=== PATIENT | female | born 1955 | race Caucasian/White ===

== ENCOUNTER → 2017-08-30 12:13 | Outpatient (CLI) | payer OTHER, SELFPAY ==
[2017-08-30 13:51] LABS: Absolute Lymphocyte Count 2.07 X10^3/ul (0.83-4.51); Absolute Neutrophil Count 2.2 X10^3/uL (2.0-7.7); Basophil# 0.02 X10^3/uL; Basophil% 0.4 % (0-1); Eosinophil# 0.17 X10^3/uL; Eosinophils% 3.4 % (0-5); Hematocrit 42.6 % (37-47); Hemoglobin 13.9 g/dl (12.0-15.0); Lymphocyte # 2.07 X10^3/ul (4.0); Mean Corp Hgb Conc 32.6 g/gl (32-36); Mean Corpuscular Hgb 30.3 pg (27.0-32.0); Mean Platelet Vol. 9.6 fl (6.2-12.0); Monocyte# 0.43 X10^3/uL; Monocyte% 8.7 % (0-10); Neutrophil # 2.24 X10^3/uL (2.7-7.7); Neutrophil % 45.5 % (47-70); Platelet Count 289 K/mm3 (150-450); RBC Distribution Width CV 13.4 % (11.6-14.6); RBC Distribution Width SD 45.7 fl (35.1-43.9); Red Blood Count 4.58 M/mm3 (4.2-5.4); White Blood Count 4.9 K/mm3 (4.4-11.0)
[2017-08-30 13:55] LABS: POSITIVE COUNT NO; POSITIVE DIFFERENTIAL NO; POSITIVE MORPHOLOGY NO
[2017-08-30 14:21] LABS: ALB/GLOB Ratio 0.9 RATIO (0.9-2.4); AST(SGOT) 23 U/L (15-37); Alanine Aminotransfer ALT/SGPT 33 U/L (13-56); Albumin, Serum 3.5 g/dL (3.2-5.0); Alkaline Phosphatase 68 U/L (45-117); Anion Gap 8 (5-15); BUN 18 mg/dL (7-18); BUN/Creat Ratio 27.3 RATIO (10-20); Calcium,Total 8.6 mg/dL (8.5-10.1); Chloride 106 mmol/L (98-107); Creatinine, Serum 0.66 mg/dL (0.55-1.02); EST Glomerular Filtration Rate 96 mL/min (>60); Est Glom Filt Rate - Afr Amer 116 mL/min (>60); Globulin 3.8 g/dL (2.2-4.2); Glucose 77 mg/dL (74-106); Potassium 4.3 mmol/L (3.5-5.1); Protein, Total 7.3 g/dL (6.4-8.2); Sodium Level 141 mmol/L (136-145)
== END ==
PROVIDERS: Family Provider Internal Medicine; PCP Internal Medicine; Visit Provider Internal Medicine Rheumatology
DX: M06.4 Inflammatory polyarthropathy (principal); M79.7 Fibromyalgia; M25.562 Pain in left knee; M17.0 Bilateral primary osteoarthritis of knee; F32.89 Other specified depressive episodes
CPT/HCPCS: 36415; 80053; 85025

== ENCOUNTER → 2018-01-29 08:53 | Outpatient (CLI) | payer OTHER, SELFPAY ==
[2018-01-29 10:29] LABS: Absolute Lymphocyte Count 1.34 X10^3/ul (0.83-4.51); Absolute Neutrophil Count 1.7 X10^3/uL (2.0-7.7); Basophil# 0.07 X10^3/uL; Basophil% 1.9 % (0-1); Eosinophil# 0.13 X10^3/uL; Eosinophils% 3.5 % (0-5); Hematocrit 42.8 % (37-47); Hemoglobin 14.2 g/dl (12.0-15.0); Lymphocyte # 1.34 X10^3/ul (4.0); Lymphocyte % 36.1 % (19-41); Mean Corp Hgb Conc 33.2 g/gl (32-36); Mean Corpuscular Hgb 30.8 pg (27.0-32.0); Mean Corpuscular Volume 92.8 fL (81-99); Mean Platelet Vol. 9.8 fl (6.2-12.0); Monocyte# 0.49 X10^3/uL; Monocyte% 13.2 % (0-10); Neutrophil # 1.67 X10^3/uL (2.7-7.7); Platelet Count 307 K/mm3 (150-450); RBC Distribution Width CV 13.1 % (11.6-14.6); RBC Distribution Width SD 43.4 fl (35.1-43.9); Red Blood Count 4.61 M/mm3 (4.2-5.4); White Blood Count 3.7 K/mm3 (4.4-11.0)
[2018-01-29 10:39] LABS: POSITIVE COUNT NO; POSITIVE DIFFERENTIAL NO; POSITIVE MORPHOLOGY NO
[2018-01-29 10:55] LABS: ALB/GLOB Ratio 0.8 RATIO (0.9-2.4); AST(SGOT) 24 U/L (15-37); Alanine Aminotransfer ALT/SGPT 35 U/L (13-56); Albumin, Serum 3.4 g/dL (3.2-5.0); Alkaline Phosphatase 68 U/L (45-117); Anion Gap 8 (5-15); BUN 18 mg/dL (7-18); BUN/Creat Ratio 24.2 RATIO (10-20); Chloride 107 mmol/L (98-107); Creatinine, Serum 0.74 mg/dL (0.55-1.02); EST Glomerular Filtration Rate 84 mL/min (>60); Est Glom Filt Rate - Afr Amer 101 mL/min (>60); Glucose 111 mg/dL (74-106); Potassium 4.1 mmol/L (3.5-5.1); Protein, Total 7.4 g/dL (6.4-8.2); Sodium Level 142 mmol/L (136-145)
== END ==
PROVIDERS: Family Provider Internal Medicine; PCP Internal Medicine; Referring Provider Internal Medicine Rheumatology; Visit Provider Internal Medicine Rheumatology
DX: M06.4 Inflammatory polyarthropathy (principal); M17.0 Bilateral primary osteoarthritis of knee; M79.7 Fibromyalgia; F32.89 Other specified depressive episodes
CPT/HCPCS: 36415; 80053; 85025

== ENCOUNTER → 2018-06-25 12:57 | Outpatient (CLI) | payer OTHER, SELFPAY ==
[2018-06-25 14:12] LABS: Absolute Lymphocyte Count 1.61 X10^3/ul (0.83-4.51); Absolute Neutrophil Count 2.6 X10^3/uL (2.0-7.7); Basophil# 0.03 X10^3/uL; Basophil% 0.6 % (0-1); Eosinophil# 0.15 X10^3/uL; Eosinophils% 3.2 % (0-5); Hematocrit 44.3 % (37-47); Hemoglobin 14.4 g/dl (12.0-15.0); Lymphocyte # 1.61 X10^3/ul (4.0); Lymphocyte % 34.1 % (19-41); Mean Corp Hgb Conc 32.5 g/gl (32-36); Mean Corpuscular Hgb 30.1 pg (27.0-32.0); Mean Corpuscular Volume 92.5 fL (81-99); Mean Platelet Vol. 9.7 fl (6.2-12.0); Monocyte# 0.36 X10^3/uL; Monocyte% 7.6 % (0-10); Neutrophil # 2.56 X10^3/uL (2.7-7.7); Neutrophil % 54.3 % (47-70); Platelet Count 264 K/mm3 (150-450); RBC Distribution Width CV 13.3 % (11.6-14.6); RBC Distribution Width SD 44.5 fl (35.1-43.9); Red Blood Count 4.79 M/mm3 (4.2-5.4); White Blood Count 4.7 K/mm3 (4.4-11.0)
[2018-06-25 14:16] LABS: POSITIVE COUNT NO; POSITIVE DIFFERENTIAL NO; POSITIVE MORPHOLOGY NO
[2018-06-25 14:25] LABS: ALB/GLOB Ratio 1.1 RATIO (0.9-2.4); AST(SGOT) 20 U/L (15-37); Alanine Aminotransfer ALT/SGPT 30 U/L (13-56); Albumin, Serum 3.8 g/dL (3.2-5.0); Alkaline Phosphatase 84 U/L (45-117); Anion Gap 9 (5-15); BUN 15 mg/dL (7-18); BUN/Creat Ratio 23.2 RATIO (10-20); Calcium,Total 8.6 mg/dL (8.5-10.1); Chloride 109 mmol/L (98-107); Creatinine, Serum 0.65 mg/dL (0.55-1.02); EST Glomerular Filtration Rate 98 mL/min (>60); Est Glom Filt Rate - Afr Amer 119 mL/min (>60); Globulin 3.5 g/dL (2.2-4.2); Glucose 102 mg/dL (74-106); Potassium 3.8 mmol/L (3.5-5.1); Protein, Total 7.3 g/dL (6.4-8.2); Sodium Level 142 mmol/L (136-145)
== END ==
PROVIDERS: Family Provider Internal Medicine; PCP Internal Medicine; Referring Provider Internal Medicine Rheumatology; Visit Provider Internal Medicine Rheumatology
DX: M06.4 Inflammatory polyarthropathy (principal); M17.0 Bilateral primary osteoarthritis of knee; M79.7 Fibromyalgia; F32.89 Other specified depressive episodes
CPT/HCPCS: 36415; 80053; 85025

== ENCOUNTER → 2018-10-27 14:32 | Outpatient (CLI) | payer OTHER, SELFPAY ==
[2018-10-27 15:42] LABS: Absolute Lymphocyte Count 2.14 X10^3/ul (0.83-4.51); Absolute Neutrophil Count 2.9 X10^3/uL (2.0-7.7); Basophil# 0.03 X10^3/uL; Basophil% 0.5 % (0-1); Eosinophil# 0.17 X10^3/uL; Hematocrit 43.6 % (37-47); Hemoglobin 14.2 g/dl (12.0-15.0); Lymphocyte # 2.14 X10^3/ul (4.0); Lymphocyte % 37.5 % (19-41); Mean Corp Hgb Conc 32.6 g/gl (32-36); Mean Corpuscular Hgb 30.3 pg (27.0-32.0); Monocyte# 0.51 X10^3/uL; Monocyte% 8.9 % (0-10); Neutrophil # 2.85 X10^3/uL (2.7-7.7); Neutrophil % 49.9 % (47-70); Platelet Count 283 K/mm3 (150-450); RBC Distribution Width CV 13.3 % (11.6-14.6); RBC Distribution Width SD 44.4 fl (35.1-43.9); Red Blood Count 4.69 M/mm3 (4.2-5.4); White Blood Count 5.7 K/mm3 (4.4-11.0)
[2018-10-27 15:44] LABS: POSITIVE COUNT NO; POSITIVE DIFFERENTIAL NO; POSITIVE MORPHOLOGY NO
[2018-10-27 16:01] LABS: AST(SGOT) 24 U/L (15-37); Alanine Aminotransfer ALT/SGPT 33 U/L (13-56); Albumin, Serum 3.6 g/dL (3.2-5.0); Alkaline Phosphatase 78 U/L (45-117); Anion Gap 3 (5-15); BUN 17 mg/dL (7-18); BUN/Creat Ratio 24.6 RATIO (10-20); Chloride 108 mmol/L (98-107); Creatinine, Serum 0.69 mg/dL (0.55-1.02); EST Glomerular Filtration Rate 91 mL/min (>60); Est Glom Filt Rate - Afr Amer 110 mL/min (>60); Globulin 3.6 g/dL (2.2-4.2); Glucose 85 mg/dL (74-106); Potassium 3.8 mmol/L (3.5-5.1); Protein, Total 7.2 g/dL (6.4-8.2); Sodium Level 141 mmol/L (136-145)
== END ==
PROVIDERS: Family Provider Internal Medicine; PCP Internal Medicine; Referring Provider Internal Medicine Rheumatology; Visit Provider Internal Medicine Rheumatology
DX: M06.4 Inflammatory polyarthropathy (principal); M79.7 Fibromyalgia; M17.0 Bilateral primary osteoarthritis of knee; F32.89 Other specified depressive episodes
CPT/HCPCS: 36415; 80053; 85025

== ENCOUNTER → 2019-02-03 16:01 | Outpatient (CLI) | payer MEDICARE, OTHER, SELFPAY ==
[2019-02-03 17:27] LABS: Absolute Lymphocyte Count 1.56 X10^3/uL (0.83-4.51); Absolute Neutrophil Count 2.8 X10^3/uL (2.0-7.7); Basophil# 0.04 X10^3/uL; Basophil% 0.8 % (0-1); Hematocrit 42.5 % (37-47); Hemoglobin 13.8 g/dL (12.0-15.0); Lymphocyte # 1.56 X10^3/ul (4.0); Lymphocyte % 30.9 % (19-41); Mean Corp Hgb Conc 32.5 g/dL (32-36); Mean Corpuscular Hgb 30.3 pg (27.0-32.0); Mean Corpuscular Volume 93.2 fL (81-99); Mean Platelet Vol. 9.4 fl (6.2-12.0); Monocyte# 0.44 X10^3/uL; Monocyte% 8.7 % (0-10); NRBC Flagged by Analyzer 0 % (0-5); Neutrophil % 55.4 % (47-70); Platelet Count 261 K/mm3 (150-450); RBC Distribution Width CV 12.5 % (11.6-14.6); RBC Distribution Width SD 43.1 fl (35.1-43.9); Red Blood Count 4.56 M/mm3 (4.2-5.4); White Blood Count 5.1 K/mm3 (4.4-11.0)
[2019-02-03 17:40] LABS: AST(SGOT) 19 U/L (15-37); Alanine Aminotransfer ALT/SGPT 32 U/L (13-56); Albumin, Serum 3.4 g/dL (3.2-5.0); Alkaline Phosphatase 75 U/L (45-117); Anion Gap 6 (5-15); BUN 17 mg/dL (7-18); BUN/Creat Ratio 24.9 RATIO (10-20); Calcium,Total 8.6 mg/dL (8.5-10.1); Chloride 108 mmol/L (98-107); Creatinine, Serum 0.68 mg/dL (0.55-1.02); EST Glomerular Filtration Rate 92 mL/min (>60); Est Glom Filt Rate - Afr Amer 111 mL/min (>60); Globulin 3.4 g/dL (2.2-4.2); Glucose 87 mg/dL (74-106); Protein, Total 6.8 g/dL (6.4-8.2); Sodium Level 142 mmol/L (136-145)
== END ==
PROVIDERS: Family Provider Internal Medicine; PCP Internal Medicine; Referring Provider Internal Medicine Rheumatology; Visit Provider Internal Medicine Rheumatology
DX: M06.4 Inflammatory polyarthropathy (principal); M17.0 Bilateral primary osteoarthritis of knee; F32.89 Other specified depressive episodes; M79.7 Fibromyalgia
CPT/HCPCS: 36415; 80053; 85025

== ENCOUNTER → 2019-03-06 20:13 | Outpatient (CLI) | payer MEDICARE, OTHER, SELFPAY | PROVIDERS: Family Provider Internal Medicine; PCP Internal Medicine; Referring Provider Psychiatry & Neurology Psychiatry; Visit Provider Psychiatry & Neurology Psychiatry | DX: G47.33 Obstructive sleep apnea (adult) (pediatric) (principal) | CPT/HCPCS: 95811 ==

== ENCOUNTER → 2019-04-28 16:39 | Outpatient (CLI) | payer MEDICARE, OTHER, SELFPAY ==
[2019-04-28 17:39] LABS: Absolute Lymphocyte Count 1.62 X10^3/uL (0.83-4.51); Absolute Neutrophil Count 3.7 X10^3/uL (2.0-7.7); Basophil# 0.04 X10^3/uL; Basophil% 0.7 % (0-1); Eosinophils% 3.3 % (0-5); Hematocrit 42.5 % (37-47); Hemoglobin 13.7 g/dL (12.0-15.0); Lymphocyte # 1.62 X10^3/ul (4.0); Lymphocyte % 26.8 % (19-41); Mean Corp Hgb Conc 32.2 g/dL (32-36); Mean Corpuscular Hgb 29.8 pg (27.0-32.0); Mean Corpuscular Volume 92.6 fL (81-99); Mean Platelet Vol. 9.4 fl (6.2-12.0); Monocyte# 0.44 X10^3/uL; Monocyte% 7.3 % (0-10); NRBC Flagged by Analyzer 0 % (0-5); Neutrophil # 3.72 X10^3/uL (2.7-7.7); Neutrophil % 61.6 % (47-70); Platelet Count 278 K/mm3 (150-450); RBC Distribution Width CV 13.2 % (11.6-14.6); RBC Distribution Width SD 44.4 fl (35.1-43.9); Red Blood Count 4.59 M/mm3 (4.2-5.4)
[2019-04-28 17:48] LABS: AST(SGOT) 24 U/L (15-37); Alanine Aminotransfer ALT/SGPT 37 U/L (13-56); Albumin, Serum 3.5 g/dL (3.2-5.0); Alkaline Phosphatase 82 U/L (45-117); Anion Gap 3 (5-15); BUN 14 mg/dL (7-18); BUN/Creat Ratio 17.7 RATIO (10-20); Calcium,Total 8.7 mg/dL (8.5-10.1); Chloride 106 mmol/L (98-107); Creatinine, Serum 0.79 mg/dL (0.55-1.02); EST Glomerular Filtration Rate 77 mL/min (>60); Est Glom Filt Rate - Afr Amer 94 mL/min (>60); Globulin 3.5 g/dL (2.2-4.2); Glucose 88 mg/dL (74-106); Potassium 3.9 mmol/L (3.5-5.1); Sodium Level 139 mmol/L (136-145)
== END ==
PROVIDERS: Family Provider Internal Medicine; PCP Internal Medicine; Referring Provider Internal Medicine Rheumatology; Visit Provider Internal Medicine Rheumatology
DX: M06.4 Inflammatory polyarthropathy (principal); M79.7 Fibromyalgia; M17.0 Bilateral primary osteoarthritis of knee; F32.89 Other specified depressive episodes
CPT/HCPCS: 36415; 80053; 85025

== ENCOUNTER → 2019-08-12 15:08 | Outpatient (CLI) | payer MEDICARE, OTHER, SELFPAY ==
[2019-08-12 17:44] LABS: Absolute Lymphocyte Count 1.93 X10^3/uL (0.83-4.51); Absolute Neutrophil Count 2.9 X10^3/uL (2.0-7.7); Basophil# 0.04 X10^3/uL; Basophil% 0.7 % (0-1); Eosinophil# 0.23 X10^3/uL; Eosinophils% 4.1 % (0-5); Hematocrit 43.8 % (37-47); Lymphocyte # 1.93 X10^3/ul (4.0); Lymphocyte % 34.8 % (19-41); Mean Corpuscular Hgb 30.6 pg (27.0-32.0); Mean Corpuscular Volume 95.6 fL (81-99); Mean Platelet Vol. 9.9 fl (6.2-12.0); Monocyte# 0.46 X10^3/uL; Monocyte% 8.3 % (0-10); NRBC Flagged by Analyzer 0 % (0-5); Neutrophil # 2.88 X10^3/uL (2.7-7.7); Neutrophil % 51.9 % (47-70); Platelet Count 265 K/mm3 (150-450); RBC Distribution Width CV 13.2 % (11.6-14.6); RBC Distribution Width SD 46.4 fl (35.1-43.9); Red Blood Count 4.58 M/mm3 (4.2-5.4); White Blood Count 5.6 K/mm3 (4.4-11.0)
[2019-08-12 18:06] LABS: AST(SGOT) 22 U/L (15-37); Alanine Aminotransfer ALT/SGPT 34 U/L (13-56); Albumin, Serum 3.6 g/dL (3.2-5.0); Alkaline Phosphatase 81 U/L (45-117); Anion Gap 6 (5-15); BUN 17 mg/dL (7-18); Chloride 106 mmol/L (98-107); Creatinine, Serum 0.81 mg/dL (0.55-1.02); EST Glomerular Filtration Rate 76 mL/min (>60); Est Glom Filt Rate - Afr Amer 91 mL/min (>60); Globulin 3.5 g/dL (2.2-4.2); Glucose 82 mg/dL (74-106); Potassium 3.7 mmol/L (3.5-5.1); Protein, Total 7.1 g/dL (6.4-8.2); Sodium Level 139 mmol/L (136-145)
== END ==
PROVIDERS: PCP Internal Medicine; Referring Provider Internal Medicine Rheumatology; Visit Provider Internal Medicine Rheumatology
DX: M06.4 Inflammatory polyarthropathy (principal); M79.7 Fibromyalgia; M17.0 Bilateral primary osteoarthritis of knee; F32.89 Other specified depressive episodes
CPT/HCPCS: 36415; 80053; 85025

== ENCOUNTER → 2019-11-18 13:48 | Outpatient (CLI) | payer MEDICARE, OTHER, SELFPAY | PROVIDERS: PCP Internal Medicine; Referring Provider Clinical Nurse Specialist; Visit Provider Clinical Nurse Specialist | DX: R00.2 Palpitations (principal) | CPT/HCPCS: 93225; 93226 ==

== ENCOUNTER → 2019-12-10 11:52 | Outpatient (CLI) | payer MEDICARE, OTHER, SELFPAY ==
[2019-12-10 15:29] LABS: Absolute Lymphocyte Count 1.61 X10^3/uL (0.83-4.51); Absolute Neutrophil Count 2.4 X10^3/uL (2.0-7.7); Basophil# 0.03 X10^3/uL; Basophil% 0.7 % (0-1); Eosinophil# 0.17 X10^3/uL; Eosinophils% 3.7 % (0-5); Hematocrit 43.2 % (37-47); Hemoglobin 13.8 g/dL (12.0-15.0); Lymphocyte # 1.61 X10^3/ul (4.0); Lymphocyte % 35.2 % (19-41); Mean Corp Hgb Conc 31.9 g/dL (32-36); Mean Corpuscular Hgb 30.7 pg (27.0-32.0); Mean Corpuscular Volume 96.2 fL (81-99); Mean Platelet Vol. 10.2 fl (6.2-12.0); Monocyte# 0.31 X10^3/uL; Monocyte% 6.8 % (0-10); NRBC Flagged by Analyzer 0 % (0-5); Neutrophil # 2.44 X10^3/uL (2.7-7.7); Neutrophil % 53.4 % (47-70); Platelet Count 291 K/mm3 (150-450); RBC Distribution Width CV 12.8 % (11.6-14.6); RBC Distribution Width SD 44.7 fl (35.1-43.9); Red Blood Count 4.49 M/mm3 (4.2-5.4); White Blood Count 4.6 K/mm3 (4.4-11.0)
[2019-12-10 15:37] LABS: AST(SGOT) 21 U/L (15-37); Alanine Aminotransfer ALT/SGPT 36 U/L (13-56); Albumin, Serum 3.6 g/dL (3.2-5.0); Alkaline Phosphatase 75 U/L (45-117); Anion Gap 6 (5-15); BUN 15 mg/dL (7-18); Chloride 108 mmol/L (98-107); Creatinine, Serum 0.68 mg/dL (0.55-1.02); EST Glomerular Filtration Rate 92 mL/min (>60); Est Glom Filt Rate - Afr Amer 111 mL/min (>60); Globulin 3.5 g/dL (2.2-4.2); Glucose 89 mg/dL (74-106); Protein, Total 7.1 g/dL (6.4-8.2); Sodium Level 141 mmol/L (136-145)
== END ==
PROVIDERS: PCP Internal Medicine; Referring Provider Internal Medicine Rheumatology; Visit Provider Internal Medicine Rheumatology
DX: M06.4 Inflammatory polyarthropathy (principal); M79.7 Fibromyalgia; M17.0 Bilateral primary osteoarthritis of knee; F32.89 Other specified depressive episodes
CPT/HCPCS: 36415; 80053; 85025

== ENCOUNTER → 2020-03-01 08:02 | Outpatient (CLI) | payer MEDICARE, OTHER, SELFPAY ==
[2020-03-01 09:50] LABS: Absolute Lymphocyte Count 1.12 X10^3/uL (0.83-4.51); Absolute Neutrophil Count 2.7 X10^3/uL (2.0-7.7); Basophil# 0.04 X10^3/uL; Basophil% 0.9 % (0-1); Eosinophil# 0.18 X10^3/uL; Eosinophils% 4.1 % (0-5); Hematocrit 42.9 % (37-47); Lymphocyte # 1.12 X10^3/ul (4.0); Lymphocyte % 25.4 % (19-41); Mean Corp Hgb Conc 32.6 g/dL (32-36); Mean Corpuscular Volume 95.1 fL (81-99); Mean Platelet Vol. 9.8 fl (6.2-12.0); Monocyte# 0.34 X10^3/uL; Monocyte% 7.7 % (0-10); NRBC Flagged by Analyzer 0 % (0-5); Neutrophil # 2.72 X10^3/uL (2.7-7.7); Neutrophil % 61.7 % (47-70); Platelet Count 283 K/mm3 (150-450); RBC Distribution Width CV 13.1 % (11.6-14.6); RBC Distribution Width SD 46.1 fl (35.1-43.9); Red Blood Count 4.51 M/mm3 (4.2-5.4); White Blood Count 4.4 K/mm3 (4.4-11.0)
[2020-03-01 10:16] LABS: Cholesterol 177 mg/dL (200); High Density Lipoprotein 86 mg/dL; Thyroid Stim Hormone (TSH) 1.15 uIU/mL (0.358-3.74); Triglycerides 55 mg/dL; Very Low Density Lipoprotein 11 mg/dL (5-40)
[2020-03-01 10:16] LABS: ALB/GLOB Ratio 0.9 RATIO (0.9-2.4); AST(SGOT) 20 U/L (15-37); Alanine Aminotransfer ALT/SGPT 36 U/L (13-56); Albumin, Serum 3.4 g/dL (3.2-5.0); Alkaline Phosphatase 74 U/L (45-117); Anion Gap 4 (5-15); BUN 16 mg/dL (7-18); BUN/Creat Ratio 21.6 RATIO (10-20); Chloride 108 mmol/L (98-107); Creatinine, Serum 0.74 mg/dL (0.55-1.02); EST Glomerular Filtration Rate 83 mL/min (>60); Est Glom Filt Rate - Afr Amer 101 mL/min (>60); Globulin 3.8 g/dL (2.2-4.2); Glucose 108 mg/dL (74-106); Protein, Total 7.2 g/dL (6.4-8.2); Sodium Level 139 mmol/L (136-145)
== END ==
PROVIDERS: Internal Medicine Rheumatology; PCP Internal Medicine; Referring Provider Internal Medicine; Visit Provider Internal Medicine
DX: M06.4 Inflammatory polyarthropathy (principal); M79.7 Fibromyalgia; M17.0 Bilateral primary osteoarthritis of knee; F32.89 Other specified depressive episodes; E03.9 Hypothyroidism, unspecified; E78.5 Hyperlipidemia, unspecified
CPT/HCPCS: 36415; 80053; 80061; 84439; 84443; 84481; 85025

== ENCOUNTER → 2020-05-17 16:03 | Outpatient (CLI) | payer MEDICARE, OTHER, SELFPAY ==
[2020-05-17 17:54] LABS: Absolute Lymphocyte Count 1.75 X10^3/uL (0.83-4.51); Absolute Neutrophil Count 2.6 X10^3/uL (2.0-7.7); Basophil# 0.02 X10^3/uL; Basophil% 0.4 % (0-1); Eosinophil# 0.24 X10^3/uL; Eosinophils% 4.7 % (0-5); Hemoglobin 14.1 g/dL (12.0-15.0); Lymphocyte # 1.75 X10^3/ul (4.0); Lymphocyte % 34.3 % (19-41); Mean Corp Hgb Conc 32.8 g/dL (32-36); Mean Corpuscular Hgb 31.1 pg (27.0-32.0); Mean Corpuscular Volume 94.7 fL (81-99); Monocyte# 0.47 X10^3/uL; Monocyte% 9.2 % (0-10); NRBC Flagged by Analyzer 0 % (0-5); Neutrophil # 2.56 X10^3/uL (2.7-7.7); Neutrophil % 50.2 % (47-70); Platelet Count 285 K/mm3 (150-450); RBC Distribution Width CV 12.6 % (11.6-14.6); RBC Distribution Width SD 43.8 fl (35.1-43.9); Red Blood Count 4.54 M/mm3 (4.2-5.4); White Blood Count 5.1 K/mm3 (4.4-11.0)
[2020-05-17 18:01] LABS: ALB/GLOB Ratio 1.1 RATIO (0.9-2.4); AST(SGOT) 22 U/L (15-37); Alanine Aminotransfer ALT/SGPT 37 U/L (13-56); Albumin, Serum 3.6 g/dL (3.2-5.0); Alkaline Phosphatase 73 U/L (45-117); Anion Gap 6 (5-15); BUN 17 mg/dL (7-18); BUN/Creat Ratio 19.1 RATIO (10-20); Calcium,Total 9.2 mg/dL (8.5-10.1); Chloride 107 mmol/L (98-107); Creatinine, Serum 0.89 mg/dL (0.55-1.02); EST Glomerular Filtration Rate 68 mL/min (>60); Est Glom Filt Rate - Afr Amer 82 mL/min (>60); Globulin 3.4 g/dL (2.2-4.2); Glucose 87 mg/dL (74-106); Potassium 4.3 mmol/L (3.5-5.1); Sodium Level 141 mmol/L (136-145)
== END ==
PROVIDERS: PCP Internal Medicine; Referring Provider Internal Medicine Rheumatology; Visit Provider Internal Medicine Rheumatology
DX: M06.4 Inflammatory polyarthropathy (principal); M79.7 Fibromyalgia; M17.0 Bilateral primary osteoarthritis of knee; F32.89 Other specified depressive episodes
CPT/HCPCS: 36415; 80053; 85025

== ENCOUNTER → 2021-04-12 | Outpatient (CLI) | payer MEDICARE, OTHER, SELFPAY | END | disposition home or self-care (01) | PROVIDERS: PCP Internal Medicine; Referring Provider Physician Assistant; Visit Provider Physician Assistant | DX: Z11.52 Encounter for screening for COVID-19 (principal) | CPT/HCPCS: 87635; U0005; U0003 ==

== ENCOUNTER 2021-05-16 10:36 | Outpatient (CLI) | payer MEDICARE, OTHER, SELFPAY | END 2021-05-16 23:59 | disposition short-term general hospital (02) | LOC: LABSPEC 10:38 | PROVIDERS: PCP Internal Medicine; Visit Provider Physician Assistant Surgical | DX: Z11.52 Encounter for screening for COVID-19 (principal) | CPT/HCPCS: 87635; U0003; U0005 ==

== ENCOUNTER 2022-05-14 16:47 | Emergency (ER) | payer MEDICARE, OTHER, SELFPAY ==
[2022-05-14 16:48] VITALS: BP 185/85; PULSE 92; RESP 19; TEMP 36.6; O2SAT 97; BMI 43.1
--- NOTE | 2022-05-14 17:11 | CT_ITS ---
INDICATION: Headache, encephalopathy EXAMINATION: CT BRAIN - CT Head or Brain W/O Contrast Injection TECHNIQUE: Multiple axial images were obtained of the head without intravenous contrast. A radiation dose optimization technique was used for this scan. IV Contrast dosage and agent: None. COMPARISON: None FINDINGS: BRAIN PARENCHYMA: No intra- or extra-axial hemorrhage. No evidence of acute infarct. No intracranial mass or mass effect. Volume loss with low attenuation of the periventricular white matter typical of chronic small vessel disease. Posterior fossa structures are unremarkable. CSF SPACES: Appropriate for age. No hydrocephalus. Basal cisterns are patent. CALVARIUM, SKULL BASE, PARANASAL SINUSES AND MASTOID AIR CELLS: Clear. No discrete lytic or blastic abnormalities. ORBITS: Both globes, extraocular muscles, optic nerves and retrobulbar fat appear unremarkable. CT/Brain/Head without Contrast IMPRESSION: No acute intracranial findings. Electronically Signed: Murali Ramso MD at 17:51 EST ,
--- NOTE | 2022-05-14 17:11 | EKG12_ITS ---
Test Reason : Blood Pressure : / mmHG Vent. Rate : 078 BPM Atrial Rate : 078 BPM P-R Int : 178 ms QRS Dur : 088 ms QT Int : 384 ms P-R-T Axes : 060 065 028 degrees QTc Int : 437 ms Normal sinus rhythm Normal ECG Confirmed by FRANCESCA ARCHIBALD, BALJINDER ([id number]), design editor IMAN MORGAN ([id number]) on 05/16/2022 9:01:30 AM Referred By: CED Confirmed By:BALJINDER MA MD
--- NOTE | 2022-05-14 17:12 | ED.VIS.CHEST ---
HPI History of Present Illness Chief Complaint: Chest Pain Narrative Narrative: C7-year-old female past medical history of hypothyroidism and depression presents with chest pain that she has had for the last 5 hours. 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 She describes midsternal chest pressure and heaviness without radiation. No nausea or vomiting, no diaphoresis. She states she has been dealing with heart palpitations with rapid heart rate and her heart skipping a beat along with elevated blood pressure since November of last year, over the last 6 months. She has been keeping track of her blood pressure because she has an appointment with Dr. Francisco Javier Gaming coming up. She was told that if she has chest pressure again as she has had in the past, that she needs to come to the emergency department for evaluation. Prior to arrival her blood pressure was in the 160 systolic. She also states that she has a headache today, but denies any paresthesias, or any other symptoms. No DVT or PE risk factors. [facility] Medical History Arthritis Breast nodule Dysthymic disorder Essential hypertension Fibromyalgia Hypothyroidism Obesity MERLIN (obstructive sleep apnea) Thyroid nodule Home Medications bupropion HCl 150 mg 24 hr tablet, extended release 150 mg PO DAILY 12/14/14 [History Last Taken Unknown] coenzyme Q10 50 mg chewable tablet 50 mg PO DAILY 12/14/14 [History Last Taken Unknown] colostrum, bovine 500 mg capsule 1,000 mg PO BID 12/14/14 [History Last Taken Unknown] cyanocobalamin (vitamin B-12) 500 mcg sublingual tablet 500 mcg sublingual DAILY 12/14/14 [History Last Taken Unknown] fish oil-dha-epa 1,200 mg-144 mg-216 mg capsule 1 ea PO BID 12/14/14 [History Last Taken Unknown] multivitamin with folic acid 400 mcg tablet (Thera) 1 tab PO DAILY 12/14/14 [History Last Taken Unknown] trazodone 50 mg tablet 50 mg PO QHS 12/14/14 [History Last Taken Unknown] levothyroxine 25 mcg tablet 25 mcg PO DAILY 07/21/15 [History Last Taken 08/17/15 07:00] Ca 600 mg-D3 20 mcg-mag oxide 50 wx-Ek-offfqg-manganese-boron tablet (Calcium 600-D3 Plus (mag-zinc)) 1 tab PO DAILY 05/14/22 [History Last Taken Unknown] amlodipine 10 mg tablet 10 mg PO DAILY #30 tabs 05/14/22 [Rx Last Taken Unknown] biotin 2,500 mcg capsule 2,500 mcg PO DAILY 05/14/22 [History Last Taken Unknown] cholecalciferol (vitamin D3) 25 mcg (1,000 unit) tablet (Vitamin D3) 2,000 unit PO DAILY 05/14/22 [History Last Taken Unknown] colestipol 1 gram tablet 2 g PO DAILY 05/14/22 [History Last Taken Unknown] fluoxetine 40 mg capsule 40 mg PO DAILY 05/14/22 [History Last Taken Unknown] gabapentin 400 mg capsule 800 mg PO QHS 05/14/22 [History Last Taken Unknown] turmeric 900 mg-turmeric root extract 100 mg-black pepper 5 mg capsule 1 cap PO DAILY 05/14/22 [History Last Taken Unknown] Allergy/AdvReac Type Severity Reaction Status Date / Time No Known Allergies Allergy Verified 05/14/22 16:48 Surgical History History of herniorrhaphy History of laparoscopic cholecystectomy Social History Smoking Status: Never smoker alcohol intake: current alcohol intake frequency: 0-2 drinks per day Alcohol type: wine substance use type: does not use ROS ROS ED ROS Narrative Constitutional: No fever, no chills. HEENT: No sore throat. No neck pain. No loss of vision. No rhinorrhea. Cardiovascular: Positive midsternal chest pressure and heaviness/chest pain. Intermittent palpitations. No pedal edema. Respiratory: No cough, intermittent, chronic shortness of breath for months. Abdominal: No abdominal pain. No nausea. No vomiting. Genitourinary: No dysuria. No hematuria. Musculoskeletal: No myalgias. No arthralgias. Neurologic: Positive headaches. No dizziness. No lightheadedness. Skin: No rash. No change in color. Psychiatric: No depression. No anxiety. EXAM Physical Exam Narrative Exam Narrative: Afebrile. Vital signs noted. HEENT: Normocephalic. Atraumatic. PERRL, EOMI. Neck soft and supple. No point tenderness or step off. Cardiovascular: Regular rate and rhythm. No murmurs, rubs, or gallops appreciated. Respiratory: No tachypnea. Lungs clear to auscultation bilaterally. Gastrointestinal: Abdomen soft, nontender, with normoactive bowel sounds. No rebound or guarding. Neurological: Awake. Alert. Nonfocal, nonlateralizing. Skin: No rash. Normal color. No pallor. Musculoskeletal: No pedal edema. Full range of motion extremities. Const Vital Signs: 05/14/22 16:48 05/14/22 16:52 05/14/22 17:27 Temperature 97.9 F Temperature Source Oral Pulse Rate 92 Respiratory Rate 19 H Respiratory Effort Normal Respiratory Pattern Normal Blood Pressure 185/85 H Blood Pressure Mean 118 Pulse Ox 97 99 Oxygen Delivery Method Room Air Room Air 05/14/22 17:47 05/14/22 20:00 Temperature Temperature Source Pulse Rate 71 72 Respiratory Rate 15 15 Respiratory Effort Respiratory Pattern Blood Pressure 154/87 H 161/88 H Blood Pressure Mean 109 112 Pulse Ox 99 98 Oxygen Delivery Method Room Air Room Air Heart Score History: Slightly/Non-Suspicious ECG: Normal Age: >/= 65 years Risk Factors: 1 or 2 Risk Factors Score: 3 MDM MDM MDM Narrative Medical decision making narrative: Chest pain work-up was pursued. She was administered aspirin. EKG was obtained and interpreted by myself as normal sinus rhythm at 78 bpm without ectopy or acute ST changes. No STEMI. I reviewed her laboratory work, and she has a normal white count of 7.6, hemoglobin normal at 14.9, platelet count normal at 328. BMP was obtained and she has a glucose appropriately elevated at 90 with a normal anion gap of 8. Sodium and potassium are normal at 139 and 3.9 respectively. Initial high-sensitivity troponin is 7. 2-hour repeat is 9 for a delta less than 7. My interpretation of the CT of her brain shows no evidence of hemorrhage. I reviewed the radiology report and agree that there is no acute process. I interpreted her chest x-ray as no evidence of pneumonia or pneumothorax. I reviewed the radiology report and they report a haziness of unspecified chronicity, but there is no indication for antibiotics that she does not have a productive cough, fever, or elevated white count and no pneumonia symptoms. Her blood pressure has fluctuated from 185 systolic down to 161, and also in the 140s. She states she has an appointment with Dr. Gaming on Saturday for palpitations and hypertension. I discussed the patient with Dr. Gaming who is on-call with cardiology. He would like the patient started on amlodipine 10 mg orally daily. She was told to continue to keep a log of her blood pressures. I called her in a prescription for this and gave her first dose of amlodipine 10 mg here. Return instructions to the emergency department were reviewed. I feel she can be discharged safely home with follow-up. Return instructions were reviewed. Disposition is discharged home in stable condition. Lab Data Attestation: I reviewed the patient's lab results. Labs: Laboratory Results - last 24 hr 05/14/22 05/14/22 05/14/22 16:55 16:55 19:18 WBC 7.6 RBC 4.79 Hgb 14.9 Hct 45.1 MCV 94.2 MCH 31.1 MCHC 33.0 RDW Std Deviation 44.1 H RDW Coeff of Poly 12.6 Plt Count 328 MPV 9.7 Immature Gran % (Auto) 0.300 Neut % (Auto) 55.9 Lymph % (Auto) 34.5 Delta % (Auto) 6.2 Eos % (Auto) 2.6 Baso % (Auto) 0.5 Absolute Neuts (auto) 4.3 Absolute Lymphs (auto) 2.63 Nucleated RBC % 0 Sodium 139 Potassium 3.9 Chloride 107 Carbon Dioxide 24.0 Anion Gap 8 BUN 18 Creatinine 0.77 Estim Creat Clear Calc 48.45 Est GFR (MDRD) Af Amer 96 Est GFR (MDRD) Non-Af 79 BUN/Creatinine Ratio 23.4 H Glucose 90 Calcium 9.4 Troponin I High Sens 7 9 Radiography Diagnostic Testing: Clinical Impression(s) from Imaging Studies Brain CT 05/14/22 17:11 IMPRESSION: No acute intracranial findings. Electronically Signed: Murali Ramos MD at 17:51 EST , Chest X-Ray 05/14/22 17:32 IMPRESSION: Hazy bilateral airspace disease of uncertain chronicity. Findings suspicious for pneumonia. Recommend short-term follow-up to resolution. Electronically Signed: Murali Ramos MD at 17:58 EST Reading Location ID and State: [facility] / [place] Tel , Service support , Discharge Plan Triage Chief Complaint: Chest Pain ED Provider: Brody Shannon Dx/Rx/DC Orders Clinical Impression: Essential hypertension, Chest pressure, Palpitations Instructions: ED Chest Pain, Uncertain Cause, ED Hypertension New Begin Treatment, ED Palpitations Prescriptions: New amlodipine 10 mg tablet 10 mg PO DAILY Qty: 30 0RF No Action gabapentin 400 mg capsule 800 mg PO QHS Rx Instructions: Start on 05/30/22 colestipol 1 gram tablet 2 g PO DAILY Label Comments: TAKE 1 TO 2 TABLETS BY MOUTH EVERY DAY as directed. Ca-D3-mag ue-meoq-rxs-nicholas-bor [Calcium 600-D3 Plus (mag-zinc)] 600 mg calcium- 20 mcg-50 mg tablet 1 tab PO DAILY turmeric-turmeric ext-pepper 900-100-5 mg capsule 1 cap PO DAILY fluoxetine 40 mg capsule 40 mg PO DAILY biotin 2,500 mcg capsule 2,500 mcg PO DAILY trazodone 50 MG tablet 50 mg PO QHS Label Comments: SLEEP bupropion HCl 150 MG tablet extended release 24 hr 150 mg PO DAILY Label Comments: mood fish oil-dha-epa 1 EACH capsule 1 ea PO BID Label Comments: supplement multivitamin with folic acid [Thera] 1 TABLET tablet 1 tab PO DAILY Label Comments: supplement coenzyme Q10 50 MG tablet,chewable 50 mg PO DAILY Label Comments: supplement colostrum, bovine 500 MG capsule 1,000 mg PO BID Label Comments: supplement cyanocobalamin (vitamin B-12) 500 MCG tablet, sublingual 500 mcg sublingual DAILY Label Comments: supplement cholecalciferol (vitamin D3) [Vitamin D3] 25 mcg (1,000 unit) tablet 2,000 unit PO DAILY Label Comments: supplement levothyroxine 25 MCG tablet 25 mcg PO DAILY Label Comments: thyroid med Primary Care Provider: Kelley Wells Referrals: Francisco Javier Gaming MD [Med Staff - Active Staff] - 2 Days Kelley Wells MD [Primary Care Provider] - Activity Restrictions/Additional Instructions: Take the amlodipine for your blood pressure, and continue to keep a log of your blood pressures for Dr. Gaming. Return with increasing chest pressure, new or worsening symptoms. Follow-up with Dr. Gaming in 2 days as scheduled. Disposition Disposition: Home, Self Care
[2022-05-14 17:27] VITALS: O2SAT 99
--- NOTE | 2022-05-14 17:32 | RAD_ITS ---
INDICATION: chest pain EXAMINATION/TECHNIQUE: X-RAY - portable upright AP chest x-ray COMPARISON: 07/21/2015 FINDINGS: LINES/DEVICES: None. LUNGS: Hazy bilateral lower lobe airspace opacities without consolidation or pleural effusion. No vascular congestion. MEDIASTINUM AND CARDIOVASCULAR STRUCTURES: Cardiac silhouette not enlarged. Central airways and mediastinal contour are unremarkable. BONES AND SOFT TISSUES: Unremarkable. RAD/Chest 1 View (Portable) IMPRESSION: Hazy bilateral airspace disease of uncertain chronicity. Findings suspicious for pneumonia. Recommend short-term follow-up to resolution. Electronically Signed: Murali Ramos MD at 17:58 EST ,
[2022-05-14 17:35] LABS: Absolute Lymphocyte Count 2.63 X10^3/uL (0.83-4.51); Absolute Neutrophil Count 4.3 X10^3/uL (2.0-7.7); Basophil# 0.04 X10^3/uL; Basophil% 0.5 % (0-1); Eosinophils% 2.6 % (0-5); Hematocrit 45.1 % (37-47); Hemoglobin 14.9 g/dL (12.0-15.0); Lymphocyte # 2.63 X10^3/ul (0.83-4.51); Lymphocyte % 34.5 % (19-41); Mean Corpuscular Hgb 31.1 pg (27.0-32.0); Mean Corpuscular Volume 94.2 fL (81-99); Mean Platelet Vol. 9.7 fl (6.2-12.0); Monocyte# 0.47 X10^3/uL; Monocyte% 6.2 % (0-10); NRBC Flagged by Analyzer 0 % (0-5); Neutrophil # 4.27 X10^3/uL (2.7-7.7); Neutrophil % 55.9 % (47-70); Platelet Count 328 K/mm3 (150-450); RBC Distribution Width CV 12.6 % (11.6-14.6); RBC Distribution Width SD 44.1 fl (35.1-43.9); Red Blood Count 4.79 M/mm3 (4.2-5.4); White Blood Count 7.6 K/mm3 (4.4-11.0)
[2022-05-14 17:46] LABS: Anion Gap 8 (5-15); BUN 18 mg/dL (7-18); BUN/Creat Ratio 23.4 RATIO (10-20); Calcium,Total 9.4 mg/dL (8.5-10.1); Chloride 107 mmol/L (98-107); Creatinine, Serum 0.77 mg/dL (0.55-1.02); EST Glomerular Filtration Rate 79 mL/min (>60); Est Glom Filt Rate - Afr Amer 96 mL/min (>60); Estimated Creatinine Clearance 48.45 ml/min; Glucose 90 mg/dL (74-106); Potassium 3.9 mmol/L (3.5-5.1); Sodium Level 139 mmol/L (136-145); Troponin-I HS (w/2H Reflex) 7 pg/mL (3.0-54.0)
[2022-05-14 17:47] VITALS: BP 154/87; PULSE 71; RESP 15; O2SAT 99
[2022-05-14] MEDS: Aspirin 81 MG TAB.CHEW 324 MG PO (18:07)
[2022-05-14 19:25] LABS: Reflex Troponin-HS? (from REC) Y
[2022-05-14 19:56] LABS: Troponin-I HS 9 pg/mL (3.0-54.0)
[2022-05-14 20:00] VITALS: BP 161/88; PULSE 72; RESP 15; O2SAT 98
[2022-05-14 21:34] VITALS: BP 170/78; PULSE 84; RESP 18; O2SAT 96
[2022-05-14] MEDS: amLODIPine 10 MG Tablet PO (21:34)
== END 2022-05-14 21:39 | disposition home or self-care (01) ==
PROVIDERS: Emergency Provider Emergency Medicine; PCP Internal Medicine; Visit Provider Emergency Medicine
DX: R07.89 Other chest pain (principal); R00.2 Palpitations; I10 Essential (primary) hypertension; F32.A Depression, unspecified
CPT/HCPCS: 70450; 71045; 80048; 84484; 85025; 93005; 99285; A4216

== ENCOUNTER → 2022-06-01 | Outpatient (CLI) | payer MEDICARE, OTHER, SELFPAY ==
--- NOTE | 2022-06-01 17:09 | STRESSREP ---
Stress Test Report Pharmacologic myocardial perfusion stress test. 67-year-old lady with a history of chest pain Resting EKG demonstrates sinus rhythm with a rate of 80 bpm. Resting blood pressure is 130/72 mmHg. 0.4 mg of regadenoson was infused per usual protocol followed by rapid intravenous saline flush injection. Continuous EKG monitoring was performed. The maximum heart rate was 97 bpm which was 63% of max impacted heart rate the maximum workload was 1 metabolic equivalent. At rest there were no ST or T wave changes noted to suggest ischemia and at peak infusion nonspecific ST changes were noted which did not meet the criteria for ischemia. No clinical angina is noted. The final blood pressure was 132/70 mmHg. Myocardial perfusion protocol. 15 mCi of technetium 99m sestamibi was injected at rest. 0.4 mg of regadenoson was infused per usual protocol. At peak infusion 44.8 mCi of technetium 99m sestamibi was injected stress images were obtained stress and rest images were reconstructed and compared in the short axis vertical long and horizontal long axis. Gated images were also obtained. Perfusion SPECT analysis: Review of the stress images demonstrate normal uptake of tracer noted in all areas of the myocardium except for small portion of the mid anterior wall with mildly reduced perfusion. The resting images demonstrated normal uptake of tracer noted in all areas of the myocardium. A small amount of reversible ischemia in the anterior wall cannot be completely excluded Gated SPECT analysis: The gated ejection fraction is 70%. Conclusion: Abnormal pharmacologic myocardial perfusion stress test with mild mid anterior ischemia. Preserved ejection fraction.
== END | disposition home or self-care (01) ==
LOC: CVS 06:59
PROVIDERS: PCP Internal Medicine; Visit Provider Internal Medicine Cardiovascular Disease
DX: R07.89 Other chest pain (principal)
CPT/HCPCS: 78452; 93017; 93225; 93226; A9500; A4216; J2785

== ENCOUNTER 2022-06-11 07:27 | Day surgery (SDC) | payer MEDICARE, OTHER, SELFPAY ==
[2022-06-07 11:01] VITALS: BMI 42.5
--- NOTE | 2022-06-11 10:59 | CL.D_ITS ---
Patient Name: ANAHI RAMOS Study Date: 06/11/2022 Performing: Francisco Javier Gaming MD Ht: 65 inches 165.1 cm : 1955 Wt: 256 lbs 116.12 kg Age: 67 Gender: female BSA: 2.2 PROCEDURE(S) PERFORMED DC02-(30048)[facility] CLINICAL PROFILE AND INDICATIONS Indications: Suspected CAD Heart Failure: None Stress/Imaging Date: 06/01/22Stress Test with SPECT MPI: Positive Low Risk CAD Presentations: Symptom unlikely to be ischemic. 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 The risks and benefits of the procedure as well as a full description of our services here and current unavailability of surgical backup were fully explained to the patient and/or their significant other prior to the catheterization. The Timeout was completed, verifying the correct patient and procedure. The patient's procedural site was prepped and draped in the usual fashion. Local anesthetic was given subcutaneously to right radial region with Lidocaine 2%. Using a modified Seldinger technique, arterial access was obtained via the right radial artery, a 6Fr sheath was inserted. Left Coronary Artery selective angiography was performed in multiple views using a 5 Fr. 4.0 [place] catheter. Right Coronary Artery selective angiography was then performed in multiple views using a 5 Fr. 4.0 [place] catheter.The arterial sheath was pulled and a TR Band was applied for hemostasis - 10cc air CORONARY ANGIOGRAPHY DOMINANCE: Right Dominant LEFT HEART ASSESSMENT Left Ventricular Ejection Fraction: by Echo 55 % Normal LV wall motion Normal Left Ventricular systolic function LEFT MAIN: Angiographically normal LEFT ANTERIOR DESCENDING ARTERY: Mild disease noted in the midsegment with some myocardial bridging in the first diagonal vessel with 50% proximal stenosis. CIRCUMFLEX ARTERY: No significant disease noted RIGHT CORONARY ARTERY: No significant disease noted COMPLICATIONS No Complications PROCEDURE MEDICATIONS Fentanyl 50 mcg IV Versed 1 mg IV Versed 1 mg IV Oxygen: 2 L/min via nasal cannula SUMMARY OF HEMODYNAMIC DATA Time AIR REST ECG 07:57:39 AO 116/71 (92) SA 09:21:58 Signed By Francisco Javier Gaming MD On 06/11/2022 10:58:32 Francisco Javier Gaming MD
== END 2022-06-11 11:15 | disposition home or self-care (01) ==
LOC: CLSP 07:28
PROVIDERS: PCP Internal Medicine; Referring Provider Internal Medicine Cardiovascular Disease; Visit Provider Internal Medicine Cardiovascular Disease
DX: I25.10 Atherosclerotic heart disease of native coronary artery without angina pectoris (principal); I10 Essential (primary) hypertension; R00.2 Palpitations; E03.9 Hypothyroidism, unspecified; G47.33 Obstructive sleep apnea (adult) (pediatric); E66.9 Obesity, unspecified; Z79.890 Hormone replacement therapy; Z79.899 Other long term (current) drug therapy
CPT/HCPCS: 93454; 99152; J7040; Q9967; C1769; C1894

== ENCOUNTER 2022-06-16 19:05 | Emergency (ER) | payer MEDICARE, OTHER, SELFPAY ==
[2022-06-16 19:06] VITALS: BP 166/76; PULSE 99; RESP 18; TEMP 38.3; O2SAT 97; BMI 43.2
--- NOTE | 2022-06-16 19:18 | RAD_ITS ---
STUDY: X-RAY - RIGHT KNEE REASON FOR EXAM: Female, 67 years old. Knee pain. Patient complains of fever, chills and body aches. History of cardiac catheterization 5 days ago. TECHNIQUE: 4 view(s) of the knee. COMPARISON: None. FINDINGS: There is a total knee replacement. The prosthetic components are intact and articulate normally with each other. There is no evidence of loosening from the underlying bone. There is no evidence of osseous fracture or destructive osseous pathology. No joint effusion. The soft tissue structures are unremarkable. RAD/Knee 4 or More Views IMPRESSION: Right total knee arthroplasty without acute abnormality. Electronically Signed: Abebe Minor DO at 20:59 EST Reading Location ID and State: [id number] [place] Tel [phone], Service support ,
--- NOTE | 2022-06-16 19:18 | EKG12_ITS ---
Test Reason : GEN ILL Blood Pressure : / mmHG Vent. Rate : 108 BPM Atrial Rate : 108 BPM P-R Int : 182 ms QRS Dur : 088 ms QT Int : 314 ms P-R-T Axes : 068 060 081 degrees QTc Int : 420 ms Sinus tachycardia Nonspecific ST abnormality Abnormal ECG Confirmed by REBECCA ARCHIBALD, LOLLY ([id number]), editor department IMAN MORGAN ([id number]) on 06/19/2022 9:26:05 AM Referred By: Confirmed By:LOLLY FERNANDEZ MD
--- NOTE | 2022-06-16 19:19 | EDS_ITS ---
HPI History of Present Illness Chief Complaint: General Illness Informant: patient Onset/Context/Timing Onset: Days Narrative Narrative: Patient presents secondary to generalized body aches, fever, right knee pain. Patient had a cardiac cath on June 11 with access from the right wrist. Patient states that over the past 2 or 3 days she is woken in the morning with body aches and fatigue. Today she developed a fever. She is complaining of right knee pain today. She had right knee replacement several years ago by Dr. Durbin. [facility] Medical History (Updated 06/16/22 @ 21:[address] Princess Fuentes MD) Abnormal stress test Arthritis BiPAP (biphasic positive airway pressure) dependence Breast nodule Chest pain Depression Dysthymic disorder Essential hypertension Fibromyalgia Hypothyroidism Obesity MERLIN (obstructive sleep apnea) Osteoporosis Thyroid nodule Home Medications bupropion HCl 150 mg 24 hr tablet, extended release 150 mg PO DAILY 12/14/14 [History Last Taken 06/11/22] colostrum, bovine 500 mg capsule 1,000 mg PO BID 12/14/14 [History Last Taken Un known] cyanocobalamin (vitamin B-12) 500 mcg sublingual tablet 500 mcg sublingual DAILY 12/14/14 [History Last Taken Unknown] fish oil-dha-epa 1,200 mg-144 mg-216 mg capsule 1 ea PO BID 12/14/14 [History Last Taken Unknown] multivitamin with folic acid 400 mcg tablet (Thera) 1 tab PO DAILY 12/14/14 [History Last Taken Unknown] trazodone 50 mg tablet 50 mg PO QHS 12/14/14 [History Last Taken Unknown] levothyroxine 25 mcg tablet 25 mcg PO DAILY 07/21/15 [History Last Taken 06/11/22] Ca 600 mg-D3 20 mcg-mag oxide 50 zw-Qt-ycrtjt-manganese-boron tablet (Calcium 600-D3 Plus (mag-zinc)) 1 tab PO DAILY 05/14/22 [History Last Taken Unknown] biotin 2,500 mcg capsule 2,500 mcg PO DAILY 05/14/22 [History Last Taken Unknown] cholecalciferol (vitamin D3) 25 mcg (1,000 unit) tablet (Vitamin D3) 2,000 unit PO DAILY 05/14/22 [History Last Taken Unknown] fluoxetine 40 mg capsule 40 mg PO DAILY 05/14/22 [History Last Taken 06/11/22] gabapentin 400 mg capsule 800 mg PO QHS 05/14/22 [History Last Taken Unknown] colestipol 1 gram tablet 2 g PO DAILY 05/16/22 [History Last Taken Unknown] losartan 100 mg tablet 100 mg PO DAILY #90 tabs 05/16/22 [Rx Last Taken Unknown] aspirin 81 mg tablet,delayed release (Adult Aspirin Regimen) 81 mg PO DAILY 06/07/22 [History Last Taken 06/11/22] amlodipine 10 mg tablet 10 mg PO DAILY #90 tabs 06/14/22 [Rx Last Taken Unknown] oseltamivir 75 mg capsule (Tamiflu) 75 mg PO BID 5 days #10 caps 06/16/22 [Rx Last Taken Unknown] Allergy/AdvReac Type Severity Reaction Status Date / Time No Known Allergies Allergy Verified 06/16/22 19:06 Family History Mother CVA (cerebral vascular accident) Thyroid disorder Diabetes Father Kidney disease Cancer Surgical History History of 2 sections History of foot surgery History of herniorrhaphy History of laparoscopic cholecystectomy History of total right knee replacement (TKR) Social History Smoking Status: Never smoker alcohol intake: current alcohol intake frequency: 0-2 drinks per day Alcohol type: wine substance use type: does not use caffeine: Yes Type: coffee Number of servings: 2 ROS ROS ED Constitutional Constitutional ED: Reports fever(s); Denies chills Eyes Eyes: Denies change in vision or discharge from eye(s) ENT ENT ED: Denies discharge from eye(s), rhinorrhea or sore throat Cardiovascular Cardiovascular: Denies chest pain or palpitations Respiratory/Chest Respiratory/Chest: Reports dyspnea; Denies cough Gastrointestinal Gastrointestinal: Denies abdominal pain, diarrhea, nausea or vomiting Genitourinary Genitourinary ED: Denies difficulty urinating or dysuria Musculoskeletal Musculoskeletal: Reports extremity pain and myalgias; Denies back pain Integumentary Denies Abrasions or rash Neurologic Neurologic: Reports weakness; Denies headache(s) Psychiatric Psychiatric: Denies anxiety or depression Allergic/Immunologic Allergic/Immunologic ED: Denies lip swelling or urticaria EXAM Physical Exam Const Vital Signs: 06/16/22 19:06 06/16/22 19:31 06/16/22 20:00 Temperature 101.0 F H 99.4 F H Temperature Source Temporal Oral Pulse Rate 99 103 H Respiratory Rate 18 20 H Blood Pressure 166/76 H 133/65 H Blood Pressure Mean 106 87 Pulse Ox 97 97 Oxygen Delivery Method Room Air Room Air Room Air 06/16/22 20:08 06/16/22 21:34 Temperature 99.1 F 99.1 F Temperature Source Oral Pulse Rate 99 87 Respiratory Rate 17 16 Blood Pressure 139/60 H 132/62 H Blood Pressure Mean 86 Pulse Ox 96 96 Oxygen Delivery Method Room Air Positive well nourished and well developed General Appearance ED: well developed HEENT Reports normocephalic and head/scalp atraumatic Eyes PERRL and EOMs intact bilaterally Neck supple Chest Wall inspection of chest normal and palpation of chest normal Resp normal respiratory effort and clear to auscultation bilaterally Cardio regular rate and regular rhythm GI non-tender Auscultation: hypoactive bowel sounds Palpation: soft Extremity Extremity Narrative: Mild erythema over the anterior right and left knee. Skin is not excessively warm when compared to surrounding tissue. Good range of motion noted. Palpable distal pulses. Neuro oriented x3 and no sensory deficits noted Sensorium / Orientation: alert Motor Exam: strength 5/5 throughout Psych mental status grossly normal Skin no rashes or lesions noted MDM MDM MDM Narrative Medical decision making narrative: Patient is given Tylenol for fever along with IV fluids. Sepsis work-up initiated. X-ray of the right knee added given her pain to this location. Swab for COVID and influenza also obtained. Lab Data Attestation: I reviewed the patient's lab results. Labs: Laboratory Results - last 24 hr 06/16/22 06/16/22 06/16/22 19:35 19:45 19:45 WBC 11.7 H RBC 4.48 Hgb 13.8 Hct 42.0 MCV 93.8 MCH 30.8 MCHC 32.9 RDW Std Deviation 43.6 RDW Coeff of Poly 12.6 Plt Count 304 MPV 9.2 Immature Gran % (Auto) 0.300 Neut % (Auto) 76.2 H Lymph % (Auto) 15.4 L [place] % (Auto) 6.3 Eos % (Auto) 1.4 Baso % (Auto) 0.4 Absolute Neuts (auto) 8.9 H Absolute Lymphs (auto) 1.80 Nucleated RBC % 0 PT 13.0 INR 1.0 APTT 27.3 Sodium Potassium Chloride Carbon Dioxide Anion Gap BUN Creatinine Estim Creat Clear Calc Est GFR (MDRD) Af Amer Est GFR (MDRD) Non-Af BUN/Creatinine Ratio Glucose Lactic Acid Calcium Total Bilirubin AST ALT Alkaline Phosphatase Total Protein Albumin Globulin Albumin/Globulin Ratio Urine Color Yellow Urine Clarity Sl. Cloudy Urine pH 6.5 Ur Specific [place] 1.010 Urine Protein Negative Urine Glucose (UA) Normal Urine Ketones Negative Urine Occult Blood 10 H Urine Nitrite Negative Urine Bilirubin Negative Urine Urobilinogen Normal Ur Leukocyte Esterase 25 H Urine RBC 0 SEEN Urine WBC 5-10 SEEN Ur Squamous Epith Cells 0-5 SEEN Urine Bacteria 1+ Urine Mucus 0 SEEN 06/16/22 06/16/22 19:45 19:45 WBC RBC Hgb Hct MCV MCH MCHC RDW Std Deviation RDW Coeff of Poly Plt Count MPV Immature Gran % (Auto) Neut % (Auto) Lymph % (Auto) [place] % (Auto) Eos % (Auto) Baso % (Auto) Absolute Neuts (auto) Absolute Lymphs (auto) Nucleated RBC % PT INR APTT Sodium 138 Potassium 4.0 Chloride 103 Carbon Dioxide 25.0 Anion Gap 10 BUN 17 Creatinine 0.76 Estim Creat Clear Calc 48.45 Est GFR (MDRD) Af Amer 97 Est GFR (MDRD) Non-Af 81 BUN/Creatinine Ratio 22.4 H Glucose 108 H Lactic Acid 1.4 Calcium 9.2 Total Bilirubin 0.60 AST 27 ALT 44 Alkaline Phosphatase 96 Total Protein 7.7 Albumin 3.8 Globulin 3.9 Albumin/Globulin Ratio 1.0 Urine Color Urine Clarity Urine pH Ur Specific [place] Urine Protein Urine Glucose (UA) Urine Ketones Urine Occult Blood Urine Nitrite Urine Bilirubin Urine Urobilinogen Ur Leukocyte Esterase Urine RBC Urine WBC Ur Squamous Epith Cells Urine Bacteria Urine Mucus Radiography Chest X-Ray - ED: 1 View, Read by ED Physician, Normal, Heart, Lungs and Mediastinum Diagnostic Testing: Clinical Impression(s) from Imaging Studies Knee X-Ray 06/16/22 19:18 IMPRESSION: Right total knee arthroplasty without acute abnormality. Electronically Signed: Abebe Minor DO at 20:59 EST Reading Location ID and State: [address] [place] [address] Tel [phone], Service support , Chest X-Ray 06/16/22 20:30 IMPRESSION: Degenerative changes, as described above. No demonstrated acute cardiopulmonary process. Electronically Signed: Abebe Minor DO at 21:00 EST Reading Location ID and State: [address] [place] [address] Tel [phone], Service support , EKG Initial EKG: Attestation: I personally reviewed and interpreted this EKG as follows: Interpretation: Sinus Tachycardia (Sinus tach at 108 with no acute ischemia.) Treatment and Re-Evaluation Narrative: CBC was a white count 11.7 with 76% neutrophils. Hemoglobin normal. Coags unremarkable. Chemistry studies and LFTs unremarkable. Lactic acid normal at 1.4. Urinalysis reveals 5-10 white cells with 0-5 epithelial cells. 1+ bacteria is noted. Nitrites are negative. Patient has had no urinary symptoms. Chest x-ray per my interpretation feels no focal infiltrate. Radiology interpretation is reviewed and agrees. Right knee x-rays per my interpretation reveal some arthritic changes with prior knee replacement. No acute abnormalities noted. COVID swab is negative. Influenza swab is positive for flu A. On repeat evaluation patient resting comfortably. I did reexamine her right knee. She has no erythema or warmth over the knee. She is able to fully flex the knee without difficulty. I do not believe she has evidence of a joint infection at this time. My suspicion is she has increased pain at her right knee given her prior surgical changes with her myalgias associated with influenza. Patient will be given a prescription for Tamiflu, first dose given here. Return instructions provided. Discharge Plan Triage Chief Complaint: General Illness ED Provider: Princess Fuentes Dx/Rx/DC Orders Clinical Impression: Influenza A Instructions: ED Influenza (Adult) Prescriptions: New oseltamivir [Tamiflu] 75 mg capsule 75 mg PO BID 5 Days Qty: 10 0RF No Action gabapentin 400 mg capsule 800 mg PO QHS Rx Instructions: Start on 05/30/22 Ca-D3-mag [id number]-bpo-nicholas-bor [Calcium 600-D3 Plus (mag-zinc)] 600 mg calcium- 20 mcg-50 mg tablet 1 tab PO DAILY fluoxetine 40 mg capsule 40 mg PO DAILY biotin 2,500 mcg capsule 2,500 mcg PO DAILY colestipol 1 gram tablet 2 g PO DAILY Label Comments: TAKE 1 TO 2 TABLETS BY MOUTH EVERY DAY as directed. losartan 100 mg tablet 100 mg PO DAILY Qty: 90 3RF trazodone 50 MG tablet 50 mg PO QHS Label Comments: SLEEP bupropion HCl 150 MG tablet extended release 24 hr 150 mg PO DAILY Label Comments: mood fish oil-dha-epa 1 EACH capsule 1 ea PO BID Label Comments: supplement multivitamin with folic acid [Thera] 1 TABLET tablet 1 tab PO DAILY Label Comments: supplement colostrum, bovine 500 MG capsule 1,000 mg PO BID Label Comments: supplement cyanocobalamin (vitamin B-12) 500 MCG tablet, sublingual 500 mcg sublingual DAILY Label Comments: supplement cholecalciferol (vitamin D3) [Vitamin D3] 25 mcg (1,000 unit) tablet 2,000 unit PO DAILY Label Comments: supplement levothyroxine 25 MCG tablet 25 mcg PO DAILY Label Comments: thyroid med aspirin [Adult Aspirin Regimen] 81 mg tablet,delayed release (DR/EC) 81 mg PO DAILY amlodipine 10 mg tablet 10 mg PO DAILY Qty: 90 3RF Primary Care Provider: Kelley Wells Referrals: Kelley Wells MD [Primary Care Provider] - 1-2 Weeks Disposition Disposition: Home, Self Care Discharge Date/Time: 06/16/22 21:41
[2022-06-16] MEDS: Acetaminophen 500 MG Tablet 1000 MG PO (19:24)
[2022-06-16 19:40] LABS: Mucous, Urine 0 SEEN /hpf (<or=2+); Red Blood Cells-Urine 0 SEEN /hpf (0-5)
[2022-06-16 19:42] LABS: Color, Urine Yellow (Yellow); Glucose, Dipstick Normal (Normal); Ketone-Dipstick Negative (Negative); Leukocyte Esterase-Dipstick 25 /ul (Negative); Nitrite-Dipstick Negative (Negative); Occult Blood-Urine 10 /ul (Negative); Protein-Dipstick Negative (Negative); Urine Bilirubin Dipstick Negative (Negative); Urine Clarity Sl. Cloudy (Clear); Urine Urobilinogen Normal (Normal); Urine pH 6.5 (5.0 - 8.0)
[2022-06-16 19:57] LABS: Bacteria 1+ /hpf (None Seen); Squamous Epithelial Cells - UA 0-5 SEEN /hpf (5-10); White Blood Cells 5-10 SEEN /hpf (0-5)
[2022-06-16 19:57] LABS: Absolute Neutrophil Count 8.9 X10^3/uL (2.0-7.7); Basophil# 0.05 X10^3/uL; Basophil% 0.4 % (0-1); Eosinophil# 0.16 X10^3/uL; Eosinophils% 1.4 % (0-5); Hemoglobin 13.8 g/dL (12.0-15.0); Lymphocyte % 15.4 % (19-41); Mean Corp Hgb Conc 32.9 g/dL (32-36); Mean Corpuscular Hgb 30.8 pg (27.0-32.0); Mean Corpuscular Volume 93.8 fL (81-99); Mean Platelet Vol. 9.2 fl (6.2-12.0); Monocyte# 0.74 X10^3/uL; Monocyte% 6.3 % (0-10); NRBC Flagged by Analyzer 0 % (0-5); Neutrophil # 8.87 X10^3/uL (2.7-7.7); Neutrophil % 76.2 % (47-70); Platelet Count 304 K/mm3 (150-450); RBC Distribution Width CV 12.6 % (11.6-14.6); RBC Distribution Width SD 43.6 fl (35.1-43.9); Red Blood Count 4.48 M/mm3 (4.2-5.4); White Blood Count 11.7 K/mm3 (4.4-11.0)
[2022-06-16 20:00] VITALS: BP 133/65; PULSE 103; RESP 20; TEMP 37.4; O2SAT 97
[2022-06-16] MEDS: 0.9% Normal Saline 1,000 ML 150 ML IV (20:06)
[2022-06-16 20:08] VITALS: BP 139/60; PULSE 99; RESP 17; TEMP 37.3; O2SAT 96
[2022-06-16 20:10] LABS: Partial Thromboplast Time 27.3 Seconds (24.1-36.2)
[2022-06-16 20:16] LABS: AST(SGOT) 27 U/L (15-37); Alanine Aminotransfer ALT/SGPT 44 U/L (13-56); Albumin, Serum 3.8 g/dL (3.2-5.0); Alkaline Phosphatase 96 U/L (45-117); Anion Gap 10 (5-15); BUN 17 mg/dL (7-18); BUN/Creat Ratio 22.4 RATIO (10-20); Calcium,Total 9.2 mg/dL (8.5-10.1); Chloride 103 mmol/L (98-107); Creatinine, Serum 0.76 mg/dL (0.55-1.02); EST Glomerular Filtration Rate 81 mL/min (>60); Est Glom Filt Rate - Afr Amer 97 mL/min (>60); Estimated Creatinine Clearance 48.45 ml/min; Globulin 3.9 g/dL (2.2-4.2); Glucose 108 mg/dL (74-106); Protein, Total 7.7 g/dL (6.4-8.2); Sodium Level 138 mmol/L (136-145)
[2022-06-16 20:22] LABS: Lactic Acid 1.4 mmol/L (0.4-1.9)
--- NOTE | 2022-06-16 20:30 | RAD_ITS ---
STUDY: X-RAY CHEST REASON FOR EXAM: Female, 67 years old. Fever, chills and bodyaches. Knee pain. Cardiac catheterization 5 days ago. TECHNIQUE: Single AP portable view of the chest. COMPARISON: May 14, 2022 FINDINGS: The lungs are clear and expanded. There is no demonstrated pleural abnormality. Normal size heart. Normal mediastinum and tara. Normal visualized pulmonary arteries. Normal visualized aortic arch and descending thoracic aorta. Normal visualized thoracic spine. There is degenerative osteoarthritis of the bilateral shoulders. There is no demonstrated abnormality of the visualized soft tissue structures of the upper abdomen. RAD/Chest 1 View (Portable) IMPRESSION: Degenerative changes, as described above. No demonstrated acute cardiopulmonary process. Electronically Signed: Abebe Minor DO at 21:00 [facility] ,
[2022-06-16] MEDS: Oseltamivir Phosphate 75 MG Capsule PO (21:32)
[2022-06-16 21:34] VITALS: BP 132/62; PULSE 87; RESP 16; TEMP 37.3; O2SAT 96
== END 2022-06-16 21:41 | disposition home or self-care (01) ==
PROVIDERS: Emergency Provider Emergency Medicine; PCP Internal Medicine; Visit Provider Emergency Medicine
DX: J10.1 Influenza due to other identified influenza virus with other respiratory manifestations (principal); I10 Essential (primary) hypertension; M25.561 Pain in right knee; Z96.651 Presence of right artificial knee joint; Z79.82 Long term (current) use of aspirin; Z20.822 Contact with and (suspected) exposure to COVID-19; Z95.818 Presence of other cardiac implants and grafts; Z98.890 Other specified postprocedural states
CPT/HCPCS: 71045; 73564; 80053; 81001; 83605; 85025; 85610; 85730; 87040; 87086; 87088; 87428; 93005; 96360; 96361; 99285; J7030

== ENCOUNTER → 2022-07-10 | Outpatient (CLI) | payer MEDICARE, OTHER, SELFPAY ==
--- NOTE | 2022-07-10 12:47 | CDU_ITS ---
Reason For Study: CAD Rt. Velocities/BP Lt. Velocities/BP Prox CCA 83.4/16.3 cm/sec. Prox CCA 97.1/16.8 cm/sec. Mid CCA 74/14.5 cm/sec. Mid CCA 72.9/11.3 cm/sec. Dist CCA 65.5/10.7 cm/sec. Dist CCA 74/15.7 cm/sec. Prox ICA 55.3/13.5 cm/sec. Prox ICA 39.5/7.2 cm/sec. Mid ICA 65.2/16.8 cm/sec. Mid ICA 70/22.1 cm/sec. Dist ICA 82.8/17.9 cm/sec. Dist ICA 68.4/16.3 cm/sec. Rt. ICA/CCA = 1.12. Lt. ICA/CCA = 0.95. Prox ECA 98.1/14.6 cm/sec. Prox ECA 69.6/10.2 cm/sec. Rt. Vert. 56.4/11.3 cm/sec. Lt. Vert. 58.1/15.1 cm/sec. Right Extracranial There is intimal thickening but no significant atherosclerotic plaque noted in the right common carotid artery. There is intimal thickening but no significant atherosclerotic plaque noted in the right internal carotid artery. There is heterogeneous, irregular atherosclerotic plaque noted in the right external carotid artery. Antegrade flow is noted in the right vertebral artery. Left Extracranial There is intimal thickening but no significant atherosclerotic plaque noted in the left common carotid artery. There is intimal thickening but no significant atherosclerotic plaque noted in the left internal carotid artery. There is intimal thickening but no significant atherosclerotic plaque noted in the left external carotid artery. Antegrade flow is noted in the left vertebral artery. Structure noted in the left thyroid that measures 0.96 x 1.03 x 1.33 cm. Procedure Carotid Duplex 50926. This is a Carotid Duplex examination using B-mode, color flow and specral Doppler. Exam performed in department. VL/Carotid Duplex Ultrasound Interpretation Summary Normal right extracranial internal carotid. Normal left extracranial internal carotid. Patent and antegrade vertebrals bilaterally. Cystic structure noted in the left thyroid that measures 0.96 x 1.03 x 1.33 cm. Ordering Physician: Cristian Coffman Referring Physician: Kelley Wells M.D. Performed By: Yvette Duncan RVT
--- NOTE | 2022-07-10 12:47 | ART_ITS ---
Reason For Study: Claudication Procedure A bilateral lower extremity continuous wave Doppler with analog waveform analysis,segmental pressures,and ankle brachial indexes without exercise. Left Segmental Pressures Left brachial= 138mmHg. Left posterior tibial artery = 177mmHg. Left dorsalis pedis artery = 173mmHg. Left digit = 125 mmHg. The left dorsalis pedis waveforms are triphasic. The left posterior tibial artery waveforms are triphasic. Right Segmental Pressures Right brachial= 135mmHg. Right posterior tibial artery = 159mmHg. Right dorsalis pedis artery = 139mmHg. Right digit = 133 mmHg. The right dorsalis pedis waveforms are triphasic. The right posterior tibial artery waveforms are triphasic. Indices The right ankle brachial index by the dorsalis pedis is 1.01. The right ankle brachial index by the posterior tibial artery is 1.15. The left ankle brachial index by the dorsalis pedis is 1.25. The left ankle brachial index by the posterior tibial artery is 1.28. VL/Lower Ext Art Exam w/o Exercis Interpretation Summary Right BRETT 1.15, normal. TBI and Doppler/PVR waveforms of the right leg normal a t rest. Left BRETT 1.28, normal. TBI and Doppler/PVR waveforms of the left leg normal at rest. Ordering Physician: Cristian Coffman Referring Physician: Kelley Wells M.D. Performed By: Yvette Duncan RVT
== END | disposition home or self-care (01) ==
LOC: CVS 12:44
PROVIDERS: PCP Internal Medicine; Referring Provider Nurse Practitioner Family; Visit Provider Nurse Practitioner Family
DX: I65.22 Occlusion and stenosis of left carotid artery (principal); I73.9 Peripheral vascular disease, unspecified; Z82.3 Family history of stroke
CPT/HCPCS: 93880; 93923

== ENCOUNTER → 2022-07-20 | Outpatient (CLI) | payer MEDICARE, OTHER, SELFPAY ==
--- NOTE | 2022-07-20 09:04 | AAAS_ITS ---
Reason For Study: Atherosclerosis Aorta Measurements Aorta Doppler Measurements Proximal aorta measures1.76 x 1.78cm. in cross- Peak systolic flow velocities within the proximal sectional axis. aorta measure 106.7 cm/sec. Proximal aorta measures1.75cm. in longitudinal Peak systolic flow velocities within the mid aorta axis. measure 108.6 cm/sec. Mid aorta measures1.60 x 1.61cm. in cross- Peak systolic flow velocities within the distal sectional axis. aorta measure 142.5 cm/sec. Mid aorta measures1.66cm. in longitudinal axis. Distal aorta measures1.54 x 1.52cm. in cross- sectional axis. Distal aorta measures1.54cm. in longitudinal axis. Left Iliac Artery Left iliac artery measures 0.94 x 0.94 cm. in the cross-sectional axis. Left iliac artery measures 0.89 cm. in the longitudinal axis. Peak systolic velocity in the left iliac artery measures 116.3 cm/sec. Right Iliac Artery Right iliac artery measures 1.11 x 1.11 cm. in the cross-sectional axis. Right iliac artery measures 1.12 cm. in the longitudinal axis. Peak systolic velocity in the right iliac artery measures 147.5 cm/sec. Procedure Aorta IVC Iliac vasculature or bypass grafts [id number]. Exam performed in department. VL/AAA Screening Interpretation Summary Aorta patent, normal caliber Bilateral iliac arteries patent, normal caliber Ordering Physician: Cristian Coffman Referring Physician: Kelley Wells M.D. Performed By: Yvette Duncan RVT
== END | disposition home or self-care (01) ==
LOC: CVS 09:00
PROVIDERS: PCP Internal Medicine; Referring Provider Nurse Practitioner Family; Visit Provider Nurse Practitioner Family
DX: I25.10 Atherosclerotic heart disease of native coronary artery without angina pectoris (principal); Z82.3 Family history of stroke
CPT/HCPCS: 76706

== ENCOUNTER → 2022-07-27 | Outpatient (CLI) | payer MEDICARE, OTHER, SELFPAY ==
[2022-07-27 10:36] LABS: AST(SGOT) 26 U/L (15-37); Alanine Aminotransfer ALT/SGPT 41 U/L (13-56); Albumin, Serum 3.5 g/dL (3.2-5.0); Alkaline Phosphatase 96 U/L (45-117); Bilirubin, Direct 0.14 mg/dL (0.00-0.30); Cholesterol 198 mg/dL (200); High Density Lipoprotein 85 mg/dL; Protein, Total 7.5 g/dL (6.4-8.2); Triglycerides 82 mg/dL; Very Low Density Lipoprotein 16 mg/dL (5-40)
== END | disposition home or self-care (01) ==
LOC: MTLAB 08:55
PROVIDERS: PCP Internal Medicine; Referring Provider Nurse Practitioner Family; Visit Provider Nurse Practitioner Family
DX: I25.10 Atherosclerotic heart disease of native coronary artery without angina pectoris (principal); Z82.3 Family history of stroke
CPT/HCPCS: 36415; 80061; 80076

== ENCOUNTER → 2022-11-23 | Outpatient (CLI) | payer MEDICARE, OTHER, SELFPAY ==
[2022-11-23 13:25] LABS: CPK Total, Creatine Kinase 91 U/L (26-192)
[2022-11-23 13:27] LABS: BNP,B-Type NATRIURETIC PEPTIDE 12.5 pg/mL (0-100)
== END | disposition home or self-care (01) ==
LOC: LABSPEC 12:59
PROVIDERS: PCP Internal Medicine; Referring Provider Nurse Practitioner; Visit Provider Nurse Practitioner
DX: M79.10 Myalgia, unspecified site (principal); R07.89 Other chest pain; R60.0 Localized edema; I25.10 Atherosclerotic heart disease of native coronary artery without angina pectoris; R06.02 Shortness of breath
CPT/HCPCS: 82550; 83880

== ENCOUNTER → 2023-04-12 | Outpatient (CLI) | payer MEDICARE, OTHER, SELFPAY ==
--- NOTE | 2023-04-13 05:53 | PFTCOMP_ITS ---
COMPLETE PULMONARY FUNCTION TEST INTERPRETATION Brief HPI: Patient is a 68-year-old female, currently under the care of Cristian song, who presents to [facility] for complete pulmonary function tests secondary to diagnosis of dyspnea. Respiratory therapist reports good effort and reproducible results. Interpretation: Forced expiration spirometry shows no large airways obstructive ventilatory defect with an FEV1 of 77% predicted. There is no significant bronchodilator response by strict ATS criteria. Spirograms are of good quality and plateau normally. The respiratory flow volume loop shows a normal pattern. Lung volumes by body plethysmography show a slightly decreased total lung cap acity at 3.9 L, 76% predicted. All other lung volumes are within normal limits. Diffusion capacity by carbon monoxide is normal at 83% predicted. The airway resistance is slightly elevated. No previous pulmonary function tests were available for review. Impression: Mild restrictive ventilatory defect with a symmetric reduction diffusion capacity
== END | disposition home or self-care (01) ==
LOC: PSN 09:16
PROVIDERS: PCP Internal Medicine; Referring Provider Nurse Practitioner Family; Visit Provider Nurse Practitioner Family
DX: R06.09 Other forms of dyspnea (principal)
CPT/HCPCS: 94060; 94726; 94729

== ENCOUNTER 2023-04-16 17:42 | Emergency (ER) | payer MEDICARE, OTHER, SELFPAY ==
[2023-04-16 17:43] VITALS: BP 140/54; PULSE 83; RESP 18; TEMP 35.9; O2SAT 96; BMI 42.5
[2023-04-16 18:58] LABS: Absolute Lymphocyte Count 1.81 X10^3/uL (0.83-4.51); Absolute Neutrophil Count 3.1 X10^3/uL (2.0-7.7); Basophil# 0.02 X10^3/uL; Basophil% 0.4 % (0-1); Eosinophil# 0.22 X10^3/uL; Eosinophils% 3.9 % (0-5); Hematocrit 40.9 % (37-47); Hemoglobin 13.3 g/dL (12.0-15.0); Lymphocyte # 1.81 X10^3/ul (0.83-4.51); Lymphocyte % 31.8 % (19-41); Mean Corp Hgb Conc 32.5 g/dL (32-36); Mean Corpuscular Hgb 30.3 pg (27.0-32.0); Mean Corpuscular Volume 93.2 fL (81-99); Mean Platelet Vol. 9.4 fl (6.2-12.0); Monocyte# 0.57 X10^3/uL; NRBC Flagged by Analyzer 0 % (0-5); Neutrophil # 3.06 X10^3/uL (2.7-7.7); Neutrophil % 53.7 % (47-70); Platelet Count 302 K/mm3 (150-450); RBC Distribution Width CV 12.7 % (11.6-14.6); RBC Distribution Width SD 43.4 fl (35.1-43.9); Red Blood Count 4.39 M/mm3 (4.2-5.4); White Blood Count 5.7 K/mm3 (4.4-11.0)
[2023-04-16 19:31] LABS: Anion Gap 5 (5-15); BUN 17 mg/dL (7-18); BUN/Creat Ratio 24.4 RATIO (10-20); Calcium,Total 9.6 mg/dL (8.5-10.1); Chloride 102 mmol/L (98-107); EST Glomerular Filtration Rate 89 mL/min (>60); Est Glom Filt Rate - Afr Amer 107 mL/min (>60); Estimated Creatinine Clearance 47.78 ml/min; Glucose 100 mg/dL (74-106); Sodium Level 138 mmol/L (136-145)
--- NOTE | 2023-04-16 20:27 | EKG12_ITS ---
Test Reason : DYSRHYTHMIA Blood Pressure : / mmHG Vent. Rate : 074 BPM Atrial Rate : 074 BPM P-R Int : 180 ms QRS Dur : 086 ms QT Int : 402 ms P-R-T Axes : 060 056 052 degrees QTc Int : 446 ms Normal sinus rhythm Normal ECG Confirmed by REBECCA ARCHIBALD, LOLLY ([id number]), marketing editor QUINTIN GUERRERO ([id number]) on 04/23/2023 8:17:59 AM Referred By: Confirmed By:LOLLY FERNANDEZ MD
--- NOTE | 2023-04-16 20:28 | ED.VIS.DYS ---
HPI History of Present Illness Chief Complaint: Shortness of Breath Narrative Narrative: 68-year-old female who denies significant past medical history except for hypertension presents with increasing shortness of breath with history of COVID. She states her symptoms began on Saturday, approximately 4 days ago. She had fever for 2 days which has resolved. She tested positive for COVID, but today, she is having dyspnea on exertion and increasing shortness of breath at rest. She denies any chest pain or other symptoms. No leg swelling. She also denies history of heart failure. [facility] Medical History Abnormal stress test Arthritis BiPAP (biphasic positive airway pressure) dependence Breast nodule Chest pain Depression Dysthymic disorder Essential hypertension Fibromyalgia Hypothyroidism Obesity MERLIN (obstructive sleep apnea) Osteoporosis Thyroid nodule Home Medications bupropion HCl 150 mg 24 hr tablet, extended release 150 mg PO DAILY 12/14/14 [History Last Taken 06/11/22] colostrum, bovine 500 mg capsule 1,000 mg PO BID 12/14/14 [History Last Taken Unknown] cyanocobalamin (vitamin B-12) 500 mcg sublingual tablet 500 mcg sublingual DAILY 12/14/14 [History Last Taken Unknown] fish oil-dha-epa 1,200 mg-144 mg-216 mg capsule 1 ea PO BID 12/14/14 [History Last Taken Unknown] multivitamin with folic acid 400 mcg tablet (Thera) 1 tab PO DAILY 12/14/14 [History Last Taken Unknown] trazodone 50 mg tablet 50 mg PO QHS 12/14/14 [History Last Taken Unknown] levothyroxine 25 mcg tablet 25 mcg PO DAILY 07/21/15 [History Last Taken 06/11/22] Ca 600 mg-D3 20 mcg-mag oxide 50 ci-Cc-wsgxnq-manganese-boron tablet (Calcium 600-D3 Plus (mag-zinc)) 1 tab PO DAILY 05/14/22 [History Last Taken Unknown] biotin 2,500 mcg capsule 2,500 mcg PO DAILY 05/14/22 [History Last Taken Unknown] cholecalciferol (vitamin D3) 25 mcg (1,000 unit) tablet (Vitamin D3) 2,000 unit PO DAILY 05/14/22 [History Last Taken Unknown] fluoxetine 40 mg capsule 40 mg PO DAILY 05/14/22 [History Last Taken 06/11/22] gabapentin 400 mg capsule 800 mg PO QHS 05/14/22 [History Last Taken Unknown] losartan 100 mg tablet 100 mg PO DAILY #90 tabs 05/16/22 [Rx Last Taken Unknown] aspirin 81 mg tablet,delayed release (Adult Aspirin Regimen) 81 mg PO DAILY 06/07/22 [History Last Taken 06/11/22] coenzyme Q10 50 mg capsule (Co Q-10) 50 mg PO DAILY 12/31/22 [History Last Taken Unknown] colestipol 1 gram tablet 2 g PO .PRN PRN 12/31/22 [History Last Taken Unknown] rosuvastatin 5 mg tablet 5 mg PO .3 x week 12/31/22 [History Last Taken Unknown] hydrochlorothiazide 25 mg tablet 25 mg PO DAILY #30 tabs 04/03/23 [Rx Last Taken Unknown] Allergy/AdvReac Type Severity Reaction Status Date / Time No Known Allergies Allergy Verified 04/16/23 17:43 Family History Mother CVA (cerebral vascular accident) Thyroid disorder Diabetes Father Kidney disease Cancer Surgical History History of 2 sections History of foot surgery History of herniorrhaphy History of laparoscopic cholecystectomy History of total right knee replacement (TKR) Social History Smoking Status: Never smoker alcohol intake: current alcohol intake frequency: 0-2 drinks per day Alcohol type: wine substance use type: does not use caffeine: Yes Type: coffee Number of servings: 2 ROS ROS ED ROS Narrative Constitutional: Resolved fever, no chills. HEENT: No sore throat. No neck pain. No loss of vision. No rhinorrhea. Cardiovascular: No chest pain. No palpitations. No pedal edema. Respiratory: Positive cough, positive dyspnea on exertion and increasing shortness of breath. Abdominal: No abdominal pain. No nausea. No vomiting. Genitourinary: No dysuria. No hematuria. Musculoskeletal: No myalgias. No arthralgias. Neurologic: No headaches. No dizziness. No lightheadedness. Skin: No rash. No change in color. Psychiatric: No depression. No anxiety. EXAM Physical Exam Narrative Exam Narrative: Afebrile. Vital signs noted. HEENT: Normocephalic. Atraumatic. PERRL, EOMI. Neck soft and supple. No point tenderness or step off. Cardiovascular: Regular rate and rhythm. No murmurs, rubs, or gallops appreciated. Respiratory: No tachypnea. Lungs clear to auscultation bilaterally. Breath sounds bilateral bases. Gastrointestinal: Abdomen soft, nontender, with normoactive bowel sounds. No rebound or guarding. Neurological: Awake. Alert. Nonfocal, nonlateralizing. Skin: No rash. Normal color. No pallor. Musculoskeletal: No pedal edema. Full range of motion extremities. Const Vital Signs: 04/16/23 17:43 04/16/23 20:25 04/16/23 20:27 Temperature 96.7 F L Temperature Source Temporal Pulse Rate 83 Respiratory Rate 18 Respiratory Effort Respiratory Depth Respiratory Pattern Blood Pressure 140/54 H Blood Pressure Mean 82 Pulse Ox 96 Oxygen Delivery Method Room Air Room Air Room Air 04/16/23 20:28 Temperature Temperature Source Pulse Rate Respiratory Rate Respiratory Effort Short of Breath Respiratory Depth Normal Respiratory Pattern Normal Blood Pressure Blood Pressure Mean Pulse Ox Oxygen Delivery Method Room Air MDM MDM MDM Narrative Medical decision making narrative: Concern is for multifocal COVID-pneumonia versus bacterial pneumonia versus pneumothorax. I have low suspicion for pulmonary embolism as she is PERC negative and not tachycardic, pulse ox 96% on room air. Nursing protocol labs were entered. I will obtain a 1 view chest x-ray as she is positive for COVID which is known. I reviewed her laboratory work it was initially put in and she has a normal white count of 5.7, hemoglobin normal at 13.3, hematocrit 40.9, platelet count normal at 302. Her electrolyte panel is grossly unremarkable with a sodium normal at 138 with potassium 4.0, glucose appropriately elevated at 100 with an anion gap normal at 5. I will add an EKG to help rule out acute coronary syndrome as a cause of her shortness of breath and dyspnea on exertion, along with a single high-sensitivity troponin as this has been ongoing. I will also add a BNP but she has no evidence of fluid overload. She will be given a albuterol MDI 2 puffs inhaled for her shortness of breath. I do not feel that dexamethasone is indicated, nor do I feel that Paxlovid is indicated. However, I did discuss the use with her and she declined. EKG was obtained and interpreted by myself independently as normal sinus rhythm at 74 bpm without ectopy or acute ST changes. No STEMI. I reviewed her laboratory work and she has normal white count of 5.7, hemoglobin normal at 13.3, hematocrit 40.9 with platelet count normal at 302. Her BMP is grossly unremarkable with a sodium of 138 potassium 4.0, BUN of 17 creatinine 0.70. Glucose appropriately elevated at 100. I added a high-sensitivity troponin which is normal at 6. BNP is also normal at 9.5, no evidence of CHF. Chest x-ray in 1 view interpreted by myself shows no evidence of multifocal pneumonia or consolidation, no pneumothorax. I reviewed the radiology report which confirms my independent interpretation. At this point in time, she will be given the albuterol MDI 2 puffs inhaled and the remainder dispensed to her to use every 4-6 hours as needed for shortness of breath. I do not feel she meets any admission criteria and that she can be discharged safely home with follow-up. Return instructions to the emergency department were reviewed. She will follow-up with her primary care provider in 1 week if not improving. Disposition is discharged home in stable condition. History & Record Review Discussion w/independent historian: Patient Additional record(s) reviewed:: Prior outpatient record and Prior ED visit Lab Data Attestation: I reviewed the patient's lab results. Labs: Laboratory Results - last 24 hr 04/16/23 18:40 WBC 5.7 RBC 4.39 Hgb 13.3 Hct 40.9 MCV 93.2 MCH 30.3 MCHC 32.5 RDW Std Deviation 43.4 RDW Coeff of Poly 12.7 Plt Count 302 MPV 9.4 Immature Gran % (Auto) 0.200 Neut % (Auto) 53.7 Lymph % (Auto) 31.8 [place] % (Auto) 10.0 Eos % (Auto) 3.9 Baso % (Auto) 0.4 Absolute Neuts (auto) 3.1 Absolute Lymphs (auto) 1.81 Nucleated RBC % 0 Sodium 138 Potassium 4.0 Chloride 102 Carbon Dioxide 31.0 Anion Gap 5 BUN 17 Creatinine 0.70 Estim Creat Clear Calc 47.78 Est GFR (MDRD) Af Amer 107 Est GFR (MDRD) Non-Af 89 BUN/Creatinine Ratio 24.4 H Glucose 100 Calcium 9.6 Troponin I High Sens 6 B-Natriuretic Peptide 9.5 Radiography Diagnostic Testing: Clinical Impression(s) from Imaging Studies Chest X-Ray 04/16/23 20:35 IMPRESSION: No radiographic evidence of acute cardiopulmonary disease. Electronically Signed: Murali Ramos MD at 21:08 EST Reading Location ID and State: [address] [place] [address] Tel , Service support , Discharge Plan Triage Chief Complaint: Shortness of Breath ED Provider: Brody Shannon Dx/Rx/DC Orders Clinical Impression: COVID, SOB (shortness of breath) Instructions: Coronavirus Disease 2019 (COVID-19): Caring for Yourself or Others, COVID-19: Lying in a Prone Position (Proning), ED Dyspnea Prescriptions: No Action gabapentin 400 mg capsule 800 mg PO QHS Rx Instructions: Start on 05/30/22 Ca-D3-mag hc-swpz-wpp-nicholas-bor [Calcium 600-D3 Plus (mag-zinc)] 600 mg calcium- 20 mcg-50 mg tablet 1 tab PO DAILY fluoxetine 40 mg capsule 40 mg PO DAILY biotin 2,500 mcg capsule 2,500 mcg PO DAILY losartan 100 mg tablet 100 mg PO DAILY Qty: 90 3RF colestipol 1 gram tablet 2 g PO .PRN PRN Patient Comments: TAKE 1 TO 2 TABLETS BY MOUTH EVERY DAY as directed. rosuvastatin 5 mg tablet 5 mg PO .3 x week Rx Instructions: MWF coenzyme Q10 [Co Q-10] 50 mg capsule 50 mg PO DAILY trazodone 50 MG tablet 50 mg PO QHS Patient Comments: SLEEP bupropion HCl 150 MG tablet extended release 24 hr 150 mg PO DAILY Patient Comments: mood fish oil-dha-epa 1 EACH capsule 1 ea PO BID Patient Comments: supplement multivitamin with folic acid [Thera] 1 TABLET tablet 1 tab PO DAILY Patient Comments: supplement colostrum, bovine 500 MG capsule 1,000 mg PO BID Patient Comments: supplement cyanocobalamin (vitamin B-12) 500 MCG tablet, sublingual 500 mcg sublingual DAILY Patient Comments: supplement cholecalciferol (vitamin D3) [Vitamin D3] 25 mcg (1,000 unit) tablet 2,000 unit PO DAILY Patient Comments: supplement levothyroxine 25 MCG tablet 25 mcg PO DAILY Patient Comments: thyroid med aspirin [Adult Aspirin Regimen] 81 mg tablet,delayed release (DR/EC) 81 mg PO DAILY hydrochlorothiazide 25 mg tablet 25 mg PO DAILY Qty: 30 11RF Primary Care Provider: Kelley Wells Referrals: Kelley Wells MD [Primary Care Provider] - 1 Week if not improving Activity Restrictions/Additional Instructions: Use the albuterol inhaler 2 puffs inhaled every 4-6 hours as needed for shortness of breath. Return with increasing shortness of breath, low pulse ox below 90%, new or worsening symptoms. Disposition Disposition: Home, Self Care
--- NOTE | 2023-04-16 20:35 | RAD_ITS ---
INDICATION: Shortness of breath EXAMINATION/TECHNIQUE: X-RAY - portable upright AP chest x-ray COMPARISON: 06/16/2022 FINDINGS: LINES/DEVICES: None. LUNGS: No consolidation, edema or effusion. No pneumothorax. MEDIASTINUM AND CARDIOVASCULAR STRUCTURES: Cardiac silhouette not enlarged. Central airways and mediastinal contour are unremarkable. BONES AND SOFT TISSUES: No acute changes. RAD/Chest 1 View (Portable) IMPRESSION: No radiographic evidence of acute cardiopulmonary disease. Electronically Signed: Murali Ramos MD at 21:08 EST ,
[2023-04-16 21:04] LABS: Troponin-I HS 6 pg/mL (3.0-54.0)
[2023-04-16 21:07] LABS: BNP,B-Type NATRIURETIC PEPTIDE 9.5 pg/mL (0-100)
[2023-04-16] MEDS: Albuterol Sulfate 8 gm Inhaler (60 puffs) 2 PUFF INHALATION (22:04)
[2023-04-16 22:13] VITALS: O2SAT 96
== END 2023-04-16 22:15 | disposition home or self-care (01) ==
PROVIDERS: Emergency Provider Emergency Medicine; PCP Internal Medicine; Visit Provider Emergency Medicine
DX: U07.1 COVID-19 (principal); R06.02 Shortness of breath; G47.33 Obstructive sleep apnea (adult) (pediatric); E03.9 Hypothyroidism, unspecified; I10 Essential (primary) hypertension; F32.A Depression, unspecified; Z79.899 Other long term (current) drug therapy; Z86.16 Personal history of COVID-19
CPT/HCPCS: 71045; 80048; 83880; 84484; 85025; 87811; 93005; 94760; 99282; A4216

== ENCOUNTER → 2023-08-22 | Outpatient (CLI) | payer MEDICARE, OTHER, SELFPAY ==
[2023-08-22 12:38] LABS: Anion Gap 6 (5-15); BUN 19 mg/dL (7-18); Calcium,Total 9.3 mg/dL (8.5-10.1); Chloride 105 mmol/L (98-107); Creatinine, Serum 0.76 mg/dL (0.55-1.02); EST Glomerular Filtration Rate 80 mL/min (>60); Est Glom Filt Rate - Afr Amer 97 mL/min (>60); Glucose 117 mg/dL (74-106); Potassium 4.2 mmol/L (3.5-5.1); Sodium Level 137 mmol/L (136-145)
[2023-08-22 12:48] LABS: AST(SGOT) 26 U/L (15-37); Alanine Aminotransfer ALT/SGPT 37 U/L (13-56); Albumin, Serum 3.6 g/dL (3.2-5.0); Alkaline Phosphatase 89 U/L (45-117); Bilirubin, Direct 0.11 mg/dL (0.00-0.30); Cholesterol 181 mg/dL (200); Globulin 3.6 g/dL (2.2-4.2); High Density Lipoprotein 78 mg/dL; Protein, Total 7.2 g/dL (6.4-8.2); Triglycerides 44 mg/dL; Very Low Density Lipoprotein 9 mg/dL (5-40)
== END | disposition home or self-care (01) ==
LOC: MTLAB 09:09
PROVIDERS: Nurse Practitioner Family; PCP Internal Medicine; Referring Provider Internal Medicine Cardiovascular Disease; Visit Provider Internal Medicine Cardiovascular Disease
DX: I10 Essential (primary) hypertension (principal); I25.10 Atherosclerotic heart disease of native coronary artery without angina pectoris; E78.5 Hyperlipidemia, unspecified; Z51.81 Encounter for therapeutic drug level monitoring; Z79.899 Other long term (current) drug therapy
CPT/HCPCS: 36415; 80048; 80061; 80076

== ENCOUNTER 2024-06-30 16:58 | Observation (INO) | payer MEDICARE, OTHER, SELFPAY ==
[2024-06-30 16:59] VITALS: BP 172/91; PULSE 87; RESP 28; TEMP 36.1; O2SAT 98
--- NOTE | 2024-06-30 17:13 | EKG12_ITS ---
Test Reason : DIZZY Blood Pressure : */* mmHG Vent. Rate : 85 BPM Atrial Rate : 85 BPM P-R Int : 186 ms QRS Dur : 90 ms QT Int : 382 ms P-R-T Axes : 70 57 61 degrees QTcB Int : 454 ms Normal sinus rhythm Normal ECG Confirmed by DELORES ARCHIBALD, CANDACE ([id number]), commissioning editor IMAN MORGAN ([id number]) on 07/06/2024 11:19:12 AM Referred By: Confirmed By: CANDACE ESTRELLA MD
--- NOTE | 2024-06-30 17:54 | EX.ED.DYSGE1 ---
HPI History of Present Illness Chief Complaint: Dizziness Informant: patient Onset/Context/Timing Onset: Days Context: Gradual Onset Timing: Intermittent Current Severity: Mild Maximum Severity: Mild Narrative Narrative: 69-year-old female history of hypothyroidism, hypertension, CAD. States she has had some intermittent nausea since Saturday. And what she describes as dizziness which is lightheadedness. No history of stroke or mini stroke. No weakness or numbness. No room spinning. No chest pain. No abdominal pain. No vomiting or diarrhea. No fever. Prior similar symptoms: No Recent Illness/Hospitalization: No PFSH PFSH Medical History Tiffany's disease Persistent depressive disorder Depression Osteoporosis BiPAP (biphasic positive airway pressure) dependence Chest pain Abnormal stress test Arthritis Essential hypertension Breast nodule Thyroid nodule Obesity Fibromyalgia Dysthymic disorder MERLIN (obstructive sleep apnea) Hypothyroidism Home Medications ?Medication ?Instructions ?Recorded ?Last Taken ?Type cyanocobalamin (vitamin B-12) 500 500 mcg sublingual DAILY 12/14/14 Unknown History mcg sublingual tablet multivitamin with folic acid 400 1 tab PO DAILY 12/14/14 Unknown History mcg tablet (Thera) trazodone 50 mg tablet 25 mg PO QHS 12/14/14 Unknown History levothyroxine 25 mcg tablet 25 mcg PO DAILY 07/21/15 06/11/22 History biotin 2,500 mcg capsule 2,500 mcg PO DAILY 05/14/22 Unknown History calcium 600 mg-D3 20 mcg-magnesium 1 tab PO DAILY 05/14/22 Unknown History 50 yt-Jv-jliznp-gonzalo-boron tablet (Calcium 600-D3 Plus (mag-zinc)) cholecalciferol (vitamin D3) 25 2,000 unit PO QHS 05/14/22 Unknown History mcg (1,000 unit) tablet (Vitamin D3) gabapentin 400 mg capsule 800 mg PO QHS 05/14/22 Unknown History aspirin 81 mg tablet,delayed 81 mg PO DAILY 06/07/22 06/11/22 History release (Adult Aspirin Regimen) coenzyme Q10 50 mg capsule (Co 50 mg PO DAILY 12/31/22 Unknown History Q-10) rosuvastatin 5 mg tablet 5 mg PO .3 x week 12/31/22 Unknown History bupropion HCl 150 mg 24 hr tablet, 150 mg PO DAILY #90 tabs 12/12/23 Unknown Rx extended release fluoxetine 40 mg capsule 40 mg PO DAILY #90 caps 02/03/24 Unknown Rx hydrochlorothiazide 25 mg tablet 25 mg PO DAILY #90 tabs 03/23/24 Unknown Rx losartan 100 mg tablet See Rx Instructions .Route 05/04/24 Unknown Rx .COMPLEX #90 tabs Allergy/AdvReac Type Severity Reaction Status Date / Time No Known Allergies Allergy Verified 06/30/24 16:59 Family History Mother CVA (cerebral vascular accident) Thyroid disorder Diabetes Father Kidney disease Cancer Surgical History History of foot surgery History of total right knee replacement (TKR) History of 2 sections History of herniorrhaphy History of laparoscopic cholecystectomy Social History Smoking Status: Never smoker alcohol intake: current alcohol intake frequency: 0-2 drinks per day Alcohol type: wine substance use type: does not use caffeine: Yes Type: coffee Number of servings: 2 ROS ROS ED ROS Narrative Lightheadedness. Nausea. Patient states she is under increasing stress because she recently had to put a 16-year-old pack to sleep. Constitutional Constitutional ED: Denies chills or fever(s) Eyes Eyes: Denies blurry vision ENT ENT ED: Denies ear pain Cardiovascular Cardiovascular: Denies chest pain Respiratory/Chest Respiratory/Chest: Denies cough or dyspnea Gastrointestinal Gastrointestinal: Denies abdominal pain Genitourinary Genitourinary ED: Denies dysuria or hematuria Musculoskeletal Musculoskeletal: Denies arthralgias Integumentary Denies abscess or Abrasions Neurologic Neurologic: Denies headache(s) Psychiatric Psychiatric: Reports anxiety Endocrine Endocrinology: Denies cold intolerance Hematologic/Lymphatic Hematologic/Lymphatic: Reports none Allergic/Immunologic Allergic/Immunologic ED: Denies mouth swelling, tongue swelling or urticaria EXAM Physical Exam Narrative Exam Narrative: Well-appearing 69-year-old female sitting upright in bed. Vital signs are stable afebrile. She does not look septic toxic or any distress. 2 family members at bedside. H EENT exam pupils round react light. His motions are intact. No facial droop. Normal speech. No trauma. Neck nontender. Lungs clear to auscultation bilaterally. Heart regular rhythm rate about 85 no murmur. Chest wall ribs nontender. Abdomen soft nontender. Moving all 4 extremities. Normal strength. Normal sensation. Normal range of motion. Neurologically she is awake alert. Answering questions and following commands. No focal motor deficits. Hallpike maneuver negative. No obvious signs of vertigo. Const Vital Signs: 06/30/24 16:59 06/30/24 17:13 06/30/24 18:11 Temperature 96.9 F L Temperature Source Temporal Pulse Rate 87 Respiratory Rate 28 H Respiratory Depth Normal Respiratory Pattern Normal Blood Pressure 172/91 H Blood Pressure Mean 118 Pulse Ox 98 Oxygen Delivery Method Room Air Room Air 06/30/24 18:49 06/30/24 20:00 06/30/24 20:25 Temperature 98.1 F Temperature Source Pulse Rate 71 82 78 Respiratory Rate 12 18 18 Respiratory Depth Respiratory Pattern Blood Pressure 138/69 H 136/77 H 155/86 H Blood Pressure Mean 92 96 109 Pulse Ox 97 96 96 Oxygen Delivery Method Room Air Room Air Positive well nourished and well developed; Negative for cachectic, contractures or unkempt General Appearance ED: well developed and NAD; Negative for unkempt, cachectic, contractures, cyanotic, diaphoretic or pallor Nutritional Appearance: Negative for cachectic HEENT Reports moist mucous membranes Negative for trauma or tenderness Eyes PERRL and EOMs intact bilaterally General Eye ED: Negative for pale conjunctiva or scleral icterus Neck no lymphadenopathy and supple General: Negative for tenderness Chest Wall inspection of chest normal and palpation of chest normal Resp normal respiratory effort and clear to auscultation bilaterally Effort and Inspection: Negative for retractions Auscultation: Negative for rales, rhonchi, wheezes or diminished lung sounds Cardio regular rate, regular rhythm, S1 normal heart sound, S2 normal heart sound and no murmurs Palpation: Negative for palpable S3 or palpable S4 Rate: Negative for bradycardia, tachycardic or other Rhythm: Negative for abnormal rhythm GI normal to inspection, nondistended, normoactive bowel sounds, non-tender, non-distended, hepatosplenomegaly and no masses Auscultation: normoactive bowel sounds Palpation: Negative for soft, tender, guarding, splenomegaly, mass or rebound tenderness present Back/Spine no CVA tenderness General Back: Negative for CVA tenderness Cervical Spine: Negative for cervical spine tenderness Thoracic Spine / Upper Back: Negative for thoracic spinal tenderness or paraspinal muscle tenderness Lumbar Spine / Lower Back: Negative for lumbar spinal tenderness Extremity normal to inspection General Extremety ED: Negative for edema, tenderness or other findings General Extremity: Negative for edema or other findings Neuro oriented x3, CN's II-XII intact bilaterally and no sensory deficits noted Sensorium / Orientation: alert; Negative for orientation impaired, lethargic or stuporous Motor Exam: strength 5/5 throughout; Negative for general weakness or strength abnormal Psych mental status grossly normal Appearance: Negative for unkempt Attitude: No agitated Mood & Affect: anxious; Negative for depressed or tearful Skin no rashes or lesions noted and no wounds General Skin Exam: Negative for jaundice or pallor Lesions: No lesion noted Rashes: No rashes noted Trauma: Negative for abrasion Wounds: Negative for wounds noted MDM MDM MDM Narrative Medical decision making narrative: Patient with anxiety, lightheadedness and not feeling well. Exam benign. Screening labs and CAT scan to be obtained. Repeat exam around 8:30 pm was unchanged. However when patient walked to the bathroom with her cane she felt very much off balance. Due to her ataxia she will be admitted for further evaluation for her dizziness. History & Record Review Discussion w/independent historian: Patient Lab Data Attestation: I reviewed the patient's lab results. Lab results narrative: CBC normal. White count of 6. H&H 14 and 41. Platelets 341. PT/INR of 12 and 0.9. Electrolytes show sodium 130. Gap is 14. Normal BUN of 10 creatinine 0.75. Glucose 150. Labs: Laboratory Results - last 24 hr 06/30/24 15:35 WBC 6.5 RBC 4.60 Hgb 14.7 Hct 41.4 MCV 90.0 MCH 32.0 MCHC 35.5 RDW Std Deviation 39.7 RDW Coeff of Poly 12.0 Plt Count 341 MPV 9.1 Immature Gran % (Auto) 0.200 Neut % (Auto) 66.4 Lymph % (Auto) 24.1 [place] % (Auto) 6.8 Eos % (Auto) 1.9 Baso % (Auto) 0.6 Absolute Neuts (auto) 4.3 Absolute Lymphs (auto) 1.56 Nucleated RBC % 0 PT 12.3 INR 0.9 APTT 24.7 Sodium 130 L Potassium 3.7 Chloride 91 L Carbon Dioxide 25.3 Anion Gap 14 BUN 10 Creatinine 0.75 Est GFR (MDRD) Non-Af 85 BUN/Creatinine Ratio 13.2 Glucose 150 H Calcium 9.6 Radiography Chest X-Ray - ED: 1 View, Read by ED Physician, Read by Radiologist, Normal, Heart, Lungs, Mediastinum, Bony Structures, No Acute Disease and Chronic Changes Diagnostic Testing: Clinical Impression(s) from Imaging Studies Chest X-Ray 06/30/24 17:55 IMPRESSION: Bibasilar airspace opacities, szlp-pvvvycy-gqvg-right, most likely to represent atelectasis. Pneumonia to be ruled out clinically. There has been no significant change since prior examination. Reading Location: [facility] Brain CT 06/30/24 18:20 IMPRESSION: No acute intracranial hemorrhage, mass effect or midline shift. Reading Location: [facility] Chest x-ray, portable, single view interpreted by myself the radiologist shows no acute abnormality. Normal cardiac silhouette. Normal lung kowalski. No acute process. Chronic changes. Rhythm Strip Rhythm Strip: Sinus Rhythm Rate: 85 Ectopy: None EKG Initial EKG: Attestation: I personally reviewed and interpreted this EKG as follows: Interpretation: Sinus Rhythm and No Acute Injury Pattern Comments: Normal sinus rhythm rate 85 no acute signs of DE, no ischemia, no dysrhythmia. Discharge Plan Triage Chief Complaint: Dizziness Other Complaint: Shortness of Breath ED Provider: Waqas Barrow Dx/Rx/DC Orders Clinical Impression: Dizziness, Ataxia, History of hypertension Prescriptions: No Action gabapentin 400 mg capsule 800 mg PO QHS Rx Instructions: Start on 05/30/22 Ca-D3-mag uk-cfyd-cyp-nicholas-bor [Calcium 600-D3 Plus (mag-zinc)] 600 mg calcium- 20 mcg-50 mg tablet 1 tab PO DAILY biotin 2,500 mcg capsule 2,500 mcg PO DAILY rosuvastatin 5 mg tablet 5 mg PO .3 x week Rx Instructions: MWF coenzyme Q10 [Co Q-10] 50 mg capsule 50 mg PO DAILY bupropion HCl 150 mg tablet extended release 24 hr 150 mg PO DAILY Qty: 90 2RF trazodone 50 MG tablet 25 mg PO QHS Patient Comments: SLEEP multivitamin with folic acid [Thera] 1 TABLET tablet 1 tab PO DAILY Patient Comments: supplement cyanocobalamin (vitamin B-12) 500 MCG tablet, sublingual 500 mcg sublingual DAILY Patient Comments: supplement cholecalciferol (vitamin D3) [Vitamin D3] 25 mcg (1,000 unit) tablet 2,000 unit PO QHS Patient Comments: supplement levothyroxine 25 MCG tablet 25 mcg PO DAILY Patient Comments: thyroid med aspirin [Adult Aspirin Regimen] 81 mg tablet,delayed release (DR/EC) 81 mg PO DAILY fluoxetine 40 mg capsule 40 mg PO DAILY Qty: 90 1RF hydrochlorothiazide 25 mg tablet 25 mg PO DAILY Qty: 90 3RF losartan 100 mg tablet See Rx Instructions .ROUTE .COMPLEX Qty: 90 3RF Dose Instruction: TAKE 1 TABLET BY MOUTH DAILY Rx Instructions: TAKE 1 TABLET BY MOUTH DAILY Primary Care Provider: Kelley Wells Referrals: Kelley Wells MD [Primary Care Provider] - Print Language: Greek Disposition Disposition: Acute Care Hospital [facility]
--- NOTE | 2024-06-30 17:55 | RAD_ITS ---
PROCEDURE: CHEST 1 VIEW (PORTABLE) REASON FOR EXAM: STROKE TECHNIQUE: Frontal view of the chest. COMPARISON: 04/16/2023. FINDINGS: The cardiac silhouette is enlarged, similar to prior examination. There are streaky changes at the lung bases, [id number]-[id number]-right. This may represent atelectasis versus scarring. No significant change since prior examination. There is no pneumothorax. There are no acute osseous abnormality is present. RAD/Chest 1 View (Portable) IMPRESSION: Bibasilar airspace opacities, [id number]-right, most likely to represent atelectasis. Pneumonia to be ruled out clinically. There has been no significant change since prior examination. Reading Location: [id number]
[2024-06-30 17:58] LABS: Absolute Lymphocyte Count 1.56 X10^3/uL (0.83-4.51); Absolute Neutrophil Count 4.3 X10^3/uL (2.0-7.7); Basophil# 0.04 X10^3/uL; Basophil% 0.6 % (0-1); Eosinophil# 0.12 X10^3/uL; Eosinophils% 1.9 % (0-5); Hematocrit 41.4 % (37-47); Hemoglobin 14.7 g/dL (12.0-15.0); Lymphocyte # 1.56 X10^3/ul (0.83-4.51); Lymphocyte % 24.1 % (19-41); Mean Corp Hgb Conc 35.5 g/dL (32-36); Mean Platelet Vol. 9.1 fl (6.2-12.0); Monocyte# 0.44 X10^3/uL; Monocyte% 6.8 % (0-10); NRBC Flagged by Analyzer 0 % (0-5); Neutrophil % 66.4 % (47-70); Platelet Count 341 K/mm3 (150-450); RBC Distribution Width SD 39.7 fl (35.1-43.9); White Blood Count 6.5 K/mm3 (4.4-11.0)
[2024-06-30 18:12] LABS: Partial Thromboplast Time 24.7 Seconds (24.1-36.2)
[2024-06-30 18:15] LABS: Anion Gap 14 (5-15); BUN 10 mg/dL (4-19); BUN/Creat Ratio 13.2 RATIO (10-20); Calcium,Total 9.6 mg/dL (7.6-11.0); Carbon Dioxide 25.3 mmol/L (21.0-32.0); Chloride 91 mmol/L (98-108); Creatinine, Serum 0.75 mg/dL (0.70-1.20); EST Glomerular Filtration Rate 85 (>60); Glucose 150 mg/dL (70-99); Potassium 3.7 mmol/L (3.3-5.1); Sodium Level 130 mmol/L (133-145)
[2024-06-30 18:17] VITALS: BMI 45.7
--- NOTE | 2024-06-30 18:20 | CT_ITS ---
EXAM: BRAIN/HEAD WITHOUT CONTRAST CLINICAL HISTORY: DIZZINESS COMPARISON: CTA dated 05/14/2022. TECHNIQUE: CT of the brain was performed without intravenous contrast administration. Multiplanar reformats were obtained afterwards. FINDINGS: There is no acute intracranial hemorrhage, mass effect or midline shift. There are no abnormal extra-axial fluid collections present. The calvarium is intact. Visualized paranasal sinuses are unremarkable. CT/Brain/Head without Contrast IMPRESSION: No acute intracranial hemorrhage, mass effect or midline shift. Reading Location: [id number]
[2024-06-30 18:21] LABS: International Normalized Ratio 0.9; Prothrombin Time (Protime)PT. 12.3 SECONDS (11.7-14.9)
[2024-06-30 18:49] VITALS: BP 138/69; PULSE 71; RESP 12; O2SAT 97
[2024-06-30 20:00] VITALS: BP 136/77; PULSE 82; RESP 18; O2SAT 96
[2024-06-30 20:25] VITALS: BP 155/86; PULSE 78; RESP 18; TEMP 36.7; O2SAT 96
--- NOTE | 2024-06-30 20:26 | ED.RN ---
This RN attempted to complete the patient's medication reconciliation. The patient reports knowing the names of the medications and when she takes the medications but is unsure of the correct dosage of the medications.
--- NOTE | 2024-06-30 21:21 | HP.PCM.HOS_ITS ---
[facility] General Date of Admission: 06/30/24 Date of Service: 06/30/24 Chief Complaint: Dizziness and Ataxia. [facility] Narrative ANAHI RAMOS, is a 69 F with a past medical history of essential hypertension; on losartan and hydrochlorothiazide, hyperlipidemia; on rosuvastatin 3 times per week, history of Tiffany's thyroiditis with subsequent hypothyroidism; on levothyroxine, morbid obesity; with BMI of 45.7 this admission, MERLIN; on BiPAP, history of CAD; on baby aspirin daily, history of diastolic dysfunction without CHF, history of claudication, history of COVID-19, history of fibromyalgia; on gabapentin, history of depression; on bupropion, trazodone and fluoxetine, history of laparoscopic cholecystectomy, history of hernia; s/p repair, remote history of 2 C-sections, family history of CVA, history of osteoporosis and OA; s/p right TKR who presents to [facility] ER complaining of dizziness and ataxia. Ms. Ramos reports her symptoms began approximately 2 days prior to admission on Friday, June 28, 2024 with intermittent dizziness and lightheadedness since that time as she was caring for her eleven 16-year-old dog who is in the process of dying causing her severe acute distress and causing her to drink more wine than she normally would. She also admits to associated nausea but she denies vomiting which caused her to recently increase her free water intake because she felt like she might be dehydrated. She then went to see one of her medical providers and they noted sharply elevated blood pressure and they encouraged her to come in for further evaluation and treatment, which she agreed to do after she went home and her blood pressure remains persistently elevated in the ~170 mmHg systolic range with patient noticing a corresponding new mild dyspnea on exertion. She states her blood pressure has been very well-controlled on her current regimen and she usually does not have uncontrolled hypertension. She denies associated fever, chills, chest pain, shortness of breath, headache, slurred speech or other focal neurologic deficits but she was noted to be markedly ataxic upon her evaluation in the ER prompting ER physician to call hospitalist for admission. In the ER she underwent CT of the brain without contrast which showed no acute pathologic changes along with a chest x-ray that showed suspected atelectasis and unremarkable laboratory studies except for mild Hyponatremia of 130 mmol/L present on admission suspected to be due to Adverse Drug Reaction to hydrochlorothiazide which may be contributing to her symptoms of ataxia and dizziness as her previous baseline levels showed she is usually between 137 mmol/L and 141 mmol/L since 2019 complicated by clinical evidence of Uncontrolled Hypertension. She was then admitted to the PCU under observation status for ongoing care for status expected to be less than 2 midnights. [facility] Medical History Tiffany's disease Persistent depressive disorder Depression Osteoporosis BiPAP (biphasic positive airway pressure) dependence Chest pain Abnormal stress test Arthritis Essential hypertension Breast nodule Thyroid nodule Obesity Fibromyalgia Dysthymic disorder MERLIN (obstructive sleep apnea) Hypothyroidism Home Medications ?Medication ?Instructions ?Recorded ?Last Taken ?Type cyanocobalamin (vitamin B-12) 500 500 mcg sublingual D AILY 12/14/14 Unknown History mcg sublingual tablet multivitamin with folic acid 400 1 tab PO DAILY Unknown History mcg tablet (Thera) trazodone 50 mg tablet 25 mg PO QHS 12/14/14 Unknow n History levothyroxine 25 mcg tablet 25 mcg PO DAILY 07/21/15 0 06/11/22 History biotin 2,500 mcg capsule 2,500 mcg PO DAILY 05/14/22 Unknown History calcium 600 mg-D3 20 mcg-magnesium 1 tab PO DAILY 04/23 07/12 Unknown History 50 jp-Sy-djcshl-gonzalo-boron tablet (Calcium 600-D3 Plus (mag-zinc)) cholecalciferol (vitamin D3) 25 2,000 unit PO QHS 04/23 07/12 Unknown History mcg (1,000 unit) tablet (Vitamin D3) gabapentin 400 mg capsule 800 mg PO QHS 05/14/22 Unkno wn History aspirin 81 mg tablet,delayed 81 mg PO DAILY 06/07/22 0 06/11/22 History release (Adult Aspirin Regimen) coenzyme Q10 50 mg capsule (Co 50 mg PO DAILY 12/31/22 Unknown History Q-10) rosuvastatin 5 mg tablet 5 mg PO .3 x week 12/31/22 U nknown History bupropion HCl 150 mg 24 hr tablet, 150 mg PO DAILY #90 tabs 12/12/23 Unknown Rx extended release fluoxetine 40 mg capsule 40 mg PO DAILY #90 caps 01/20 08/13 Unknown Rx hydrochlorothiazide 25 mg tablet 25 mg PO DAILY #90 ta bs 03/23/24 Unknown Rx losartan 100 mg tablet 100 mg PO QHS bp 06/30/24 Un known History Allergy/AdvReac Type Severity Reaction Status Date / Time hydrochlorothiazide AdvReac hyponatremi Verified 06/30/24 22:07 a Family History Mother CVA (cerebral vascular accident) Thyroid disorder Diabetes Father Kidney disease Cancer Surgical History History of foot surgery History of total right knee replacement (TKR) History of 2 sections History of herniorrhaphy History of laparoscopic cholecystectomy Social History Smoking Status: Never smoker alcohol intake: current alcohol intake frequency: 0-2 drinks per day Alcohol type: wine substance use type: does not use caffeine: Yes Type: coffee Number of servings: 2 ROS ROS Narrative Review of Systems: Constitutional: Patient admits to intermittent lightheadedness and dizziness but she denies fever or chills. Eyes: Patient denies changes in vision or discharge from eyes. ENT: Patient denies runny nose, sore throat or ear pain. Resp: Patient admits to mild new dyspnea on exertion that corresponds with elevated blood pressure as per HPI. CV: Patient denies chest pain, palpitations, heart racing or lower extremity edema. GI: Patient denies abdominal pain, nausea, vomiting, diarrhea or constipation. : Patient denies dysuria, hematuria or urinary frequency. MSK: Patient denies arthralgias or myalgias. Skin: Patient denies rash, abscess, wounds or jaundice. Psych: Patient admits to recent heightened anxiety due to the of her beloved dog but she denies SI or HI. Neuro: Patient admits to intermittent dizziness and lightheadedness with ataxic gait as per HPI. She denies headache or paresthesias. Allergy: Patient denies lip swelling, tongue swelling or urticaria. Hematology: Patient denies easy bleeding or easy bruisability. Endocrinology: Patient denies polyuria, polydipsia or polyphagia. 14 point ROS otherwise negative except for positives noted above in HPI. Vital Signs Vital Signs Vital Signs: 06/30/24 16:59 06/30/24 17:13 06/30/24 18:11 Temperature 96.9 F L Temperature Source Temporal Pulse Rate 87 Respiratory Rate 28 H Respiratory Depth Normal Respiratory Pattern Normal Blood Pressure 172/91 H Blood Pressure Mean 118 Pulse Ox 98 Oxygen Delivery Method Room Air Room Air 06/30/24 18:49 06/30/24 20:00 06/30/24 20:25 Temperature 98.1 F Temperature Source Pulse Rate 71 82 78 Respiratory Rate 12 18 18 Respiratory Depth Respiratory Pattern Blood Pressure 138/69 H 136/77 H 155/86 H Blood Pressure Mean 92 96 109 Pulse Ox 97 96 96 Oxygen Delivery Method Room Air Room Air Weight Weight: 274 lb 14.663 oz Body Mass Index (BMI) 45.7 Physical Exam Const alert, oriented x3 and no apparent distress Constitutional Narrative: Morbidly obese with mildly anxious appearance. General Appearance: cooperative HEENT normocephalic, head/scalp atraumatic, hearing grossly normal bilaterally and moist oral mucous membranes Eyes PERRL, EOMs intact bilaterally and conjunctivae normal Neck no lymphadenopathy and supple Resp normal respiratory effort, no retractions, no use of accessory muscles and clear to auscultation bilaterally Cardio regular rate and regular rhythm GI normal to inspection, nondistended, normoactive bowel sounds, soft to palpation, non-tender and non-distended GI Narrative: Morbidly obese. Extremity normal to inspection, full ROM and no clubbing, cyanosis or edema Skin Skin Narrative: Patient has no evidence of rash, abscess, wounds or jaundice. Neuro oriented x3, CN's II-XII intact bilaterally, moves all extremities and no focal motor deficits Neuro Narrative: Patient noted to be dizzy with ataxic gait when trying to ambulate. Sensorium / Orientation: awake, alert, oriented to person, oriented to place and oriented to time Speech: speech normal Psych Mood & Affect: anxious Results Medical Records Data Attestation: I reviewed the patient's medical records Lab / Micro Data Attestation: I reviewed the patient's lab results. 06/30/24 15:35 06/30/24 15:35 Labs: Laboratory Results - last 24 hr 06/30/24 15:35: WBC 6.5, RBC 4.60, Hgb 14.7, Hct 41.4, MCV 90.0, MCH 32.0, MCHC 35.5, RDW Std Deviation 39.7, RDW Coeff of Poly 12.0, Plt Count 341, MPV 9.1, Immature Gran % (Auto) 0.200, Neut % (Auto) 66.4, Lymph % (Auto) 24.1, [place] % (Auto) 6.8, Eos % (Auto) 1.9, Baso % (Auto) 0.6, Absolute Neuts (auto) 4.3, Absolute Lymphs (auto) 1.56, Nucleated RBC % 0, PT 12.3, INR 0.9, APTT 24.7, S odium 130 L, Potassium 3.7, Chloride 91 L, Carbon Dioxide 25.3, Anion Gap 14, BUN 10, Creatinine 0.75, Est GFR (MDRD) Non-Af 85, BUN/Creatinine Ratio 13.2, G lucose 150 H, Calcium 9.6 Rhythm Strip Rhythm Strip: Sinus Rhythm Rate: 85 Ectopy: None Imaging Radiology Impression Chest X-Ray 06/30/24 17:55 IMPRESSION: Bibasilar airspace opacities, [id number]-[id number]-right, most likely to represent atelectasis. Pneumonia to be ruled out clinically. There has been no significant change since prior examination. Reading Location: [id number] Brain CT 06/30/24 18:20 IMPRESSION: No acute intracranial hemorrhage, mass effect or midline shift. Reading Location: [id number] [facility] Imaging Services [address] [place] [id number] Chest without Contrast MR#: [id number] Acct: [id number] Name: ANAHI RAMOS) Rep #: [id number] : 1955 F 69 From: Cuauhtemoc Modi MD PCP: Dr. Kelley Wells MD Status: ADM REI Study: Chest without Contrast Date of Exam: 07/01/24 Exam# [id number] Ordering Dr: Tomas Gerber DO PROCEDURE: CHEST WITHOUT CONTRAST REASON FOR EXAM: SUSPECTED PNA ON CXR. TECHNIQUE: Chest CT without contrast. COMPARISON: Chest x-ray performed on June 30, 2024. FINDINGS: The trachea and central bronchial tree are patent. There is no pleural or pericardial effusion. The heart is normal in size. There are no pathologically enlarged lymph nodes within the mediastinum. The heart is normal in size. No pathologically enlarged lymph nodes are present within the mediastinum. There is no pneumothorax. There are streaky changes at the lung bases. These are likely to represent scarring versus subsegmental atelectasis. No definite acute osseous abnormality seen within chest. 1.6 cm subcutaneous nodule seen within the left upper abdominal wall. This is best seen on image 93/121. This is incompletely characterized. Differential possibility includes, but not limited to sebaceous cyst versus other etiologies. Focal ultrasound may be performed for further evaluation. CT/Chest without Contrast IMPRESSION: No acute infiltrate or consolidation is seen. No definitive evidence of pneumonia is seen. 1.6 cm subcutaneous nodule seen within the left upper abdominal wall. This is best seen on image 93/121. This is incompletely characterized. Differential possibility includes, but not limited to sebaceous cyst versus other etiologies. Focal ultrasound may be performed for further evaluation. One or more dose reduction techniques were used (e.g., Automated exposure control, adjustment of the mA and/or kV according to patient size, use of iterative reconstruction technique). Reading Location: [id number] CC: Dr. Tomas Gerber DO; Dr. Kelley Wells MD ~ Director Of Psychiatry: Signed Assessment & Plan Assessment/Plan (1) Dizziness: (2) Ataxia: (3) Hyponatremia: (4) Adverse drug reaction: QUALIFIERS: Encounter type: initial encounter Qualified Code(s): T50.905A - Adverse effect of unspecified drugs, medicaments and biological substances, initial encounter (5) Uncontrolled hypertension: (6) Acute reaction to situational stress: (7) Abnormal CXR: (8) Morbid obesity with BMI of 40.0-44.9, adult: (9) Family history of CVA: (10) Hyperlipidemia: QUALIFIERS: Hyperlipidemia type: unspecified Qualified Code(s): E 78.5 - Hyperlipidemia, unspecified PLAN: Plan 1. Intermittent Lightheadedness and Dizziness with Ataxic Gait worrisome for possible TIA/CVA - Admit to PCU under observation status. Check MRI of brain without contrast. Check echocardiogram to evaluate LVEF. Check carotid Doppler to evaluate for stenosis. Give aspirin and continue statin plus allow for 'permissive hypertension' until CVA definitively ruled out on MRI. Check Lipid Profile, TSH, B12, Folate, CHUY, UDS and HgbA1c to evaluate for possible reversible causes of confusion. Finally, we will consult [facility] teleneurology disease patient on rounds in the a.m. for further recommendations with help appreciated in advance. 2. Hyponatremia of 130 mmol/L present on admission suspected to be due to Adverse Drug Reaction to hydrochlorothiazide which may be contributing to her symptoms of ataxia and dizziness as her previous baseline levels showed she is usually between 137 mmol/L and 141 mmol/L since 2019 complicating #1 - Stop hydrochlorothiazide and add to list of allergies to prevent recurrence. Give normal saline IV fluid and check urine osmolality and serum osmolality. Finally, we will recheck CMP daily to follow trend of hopeful improvement of no more than 8-10 mmol/L per 24-hour period. 3. Uncontrolled Hypertension compounding #1 & #2 - Patient will be allowed to have 'permissive hypertension' until CVA definitively ruled out on MRI. Patient's hydrochlorothiazide will likely be replaced with furosemide in addition to restarting her losartan. 4. Acute reaction to situational stress after the recent of her beloved dog in the setting of previously known chronic depression on; bupropion, trazodone and fluoxetine adding to the medical complexity of #1 - #3 - Give home medications plus consider low-dose alprazolam prn for breakthrough symptoms. 5. CXR suggestive of atelectasis and possible infiltrate - Checked CT of chest without contrast to clarify diagnosis with patient requiring 2L NC with no acute findings noted. Check d-dimer. 6. Morbid Obesity; with BMI of 45.7 this admission plus MERLIN; on BiPAP adding to the burden of disease outlined from #1 - #5 - Weight loss will be recommended. Check TSH. This complicates her case and may hamper recovery. 7. Positive family history of CVA - Noted. 8. Hyperlipidemia; on rosuvastatin 3 times per week - Resume statin and check Lipid Profile. 9. History of Tiffany's thyroiditis with subsequent hypothyroidism; on levothyroxine - Maintain levothyroxine and check TSH. 10. History of CAD; on baby aspirin daily - Stable. 11. History of diastolic dysfunction without CHF - Echocardiogram pending for #1. BNP also pending. 12. History of claudication - Stable. 13. History of COVID-19 - Noted. 14. History of fibromyalgia; on gabapentin - Home regimen to continue as before. 15. History of laparoscopic cholecystectomy - Noted. 16. History of hernia; s/p repair - Noted. 17. Remote history of 2 C-sections - Noted for the sake of completeness. 18. History of osteoporosis - Stable. 19. OA; s/p right TKR - Give acetaminophen prn pain or fever. 20. DVT prophylaxis - Give Lovenox 40 mg sq BID. Total time: Approximately (but not less than) 85 minutes. Charges/Coding Visit Charges OBSV E&M: 68475 Observ/hosp same date L3
[2024-06-30] MEDS: Gabapentin 400 MG Capsule 800 MG PO (21:59)
[2024-06-30 22:00] VITALS: BP 152/82; PULSE 72; RESP 18; O2SAT 96
[2024-06-30 23:13] LABS: Hemoglobin A1c 5.8 % (<=5.6)
[2024-06-30 23:27] VITALS: BMI 44.6
[2024-07-01 00:05] VITALS: BP 157/87; BP 161/88; BP 172/77; PULSE 72; PULSE 77; PULSE 86
[2024-07-01] MEDS: traZODone 50 MG Tablet 25 MG PO (00:10)
[2024-07-01] MEDS: Scopolamine 1mg/72hr Patch 1 PATCH TD (00:12)
[2024-07-01 00:14] LABS: Vitamin B12 1511 pg/mL (180-914)
[2024-07-01] MEDS: 0.9% Normal Saline (1000mL) 1,000 ML 70 ML IV (00:14)
[2024-07-01 00:15] VITALS: BP 172/95; PULSE 69; RESP 18; TEMP 36.8; O2SAT 97
[2024-07-01] MEDS: 0.9% Saline Lock 10 ML Syringe IV (00:15)
[2024-07-01 00:23] LABS: Alcohol, Blood (Medical)-Serum < 10.1 mg/dL (<=10.0)
[2024-07-01 00:32] LABS: Amphetamine Urine NEGATIVE (<1000 ng/mL); Barbiturate Urine NEGATIVE (< 200 ng/mL); Benzodiazepine Urine NEGATIVE (< 200 ng/mL); Buprenorphine Urine NEGATIVE (< 200 ng/mL); Cocaine Urine NEGATIVE (< 300 ng/mL); Fentanyl, Urine NEGATIVE; Methadone Urine NEGATIVE (< 300 ng/mL); Opiates Urine NEGATIVE (< 300 ng/mL); Oxycodone, Urine NEGATIVE (< 100 ng/mL); PCP Urine NEGATIVE (< 25 ng/mL); THC Urine NEGATIVE (< 50 ng/mL)
[2024-07-01 00:50] LABS: Osmolality, Serum 273 mOsm/KG (280-301)
--- NOTE | 2024-07-01 02:17 | CT_ITS ---
PROCEDURE: CHEST WITHOUT CONTRAST REASON FOR EXAM: SUSPECTED PNA ON CXR. TECHNIQUE: Chest CT without contrast. COMPARISON: Chest x-ray performed on June 30, 2024. FINDINGS: The trachea and central bronchial tree are patent. There is no pleural or pericardial effusion. The heart is normal in size. There are no pathologically enlarged lymph nodes within the mediastinum. The heart is normal in size. No pathologically enlarged lymph nodes are present within the mediastinum. There is no pneumothorax. There are streaky changes at the lung bases. These are likely to represent scarring versus subsegmental atelectasis. No definite acute osseous abnormality seen within chest. 1.6 cm subcutaneous nodule seen within the left upper abdominal wall. This is best seen on image 93/121. This is incompletely characterized. Differential possibility includes, but not limited to sebaceous cyst versus other etiologies. Focal ultrasound may be performed for further evaluation. CT/Chest without Contrast IMPRESSION: No acute infiltrate or consolidation is seen. No definitive evidence of pneumo daksha is seen. 1.6 cm subcutaneous nodule seen within the left upper abdominal wall. This is best seen on image 93/121. This is incompletely characterized. Differential possibility includes, but not limited to sebaceous cyst versus other etiologies. Focal ultrasound may be performed for further evaluation. One or more dose reduction techniques were used (e.g., Automated exposure contr ol, adjustment of the mA and/or kV according to patient size, use of iterative reconstruction technique). Reading Location: [id number]
--- NOTE | 2024-07-01 02:56 | ECHOD_ITS ---
Reason For Study Reason For Study: TIA/CVA Procedure This was a 2D Doppler, Color Flow transthoracic echocardiogram. Exam performed portable in patient room. Left Ventricle Normal LV size. The estimated ejection fraction is 70 %. No evidence for diastolic dysfunction. No regional wall motion abnormalities noted. Right Ventricle Normal RV size. Normal systolic function. Atria The left and right atria are normal. No doppler evidence for ASD. Mitral Valve There is no mitral valve stenosis. Trivial mitral valve insufficiency. Tricuspid Valve There is no tricuspid stenosis. Unable to estimate RV systolic pressure due to inadequate jet, pulmonary artery pressure probably normal. Aortic Valve Trisinus/trileaflet aortic valve. There is no aortic stenosis. No aortic valve insufficiency. Pulmonic Valve There is no pulmonic valvular stenosis. No pulmonic valve insufficiency. Great Vessels Normal sized aortic root. Pericardium/Pleural No pericardial effusion. Medication Performed a rapid injection of agitated mix of 9 cc saline and 1cc air to assess for atrial septal defect. 2 attempts. MMode/2D Measurements & Calculations LVIDd: 4.6 cm IVSd: 1.2 cm Ao root diam: 3.6 cm LVIDs: 3.2 cm LVPWd: 1.5 cm RVDd: 3.2 cm FS: 31.0 % LAV(MOD-bp): 57.3 ml LVAd ap4: 24.1 cm2 LVAd ap2: 26.3 cm2 LAV(MOD-bp) Indexed: 25.6 ml/m2 LVLd ap4: 7.6 cm LVLd ap2: 8.2 cm LAV(MOD-sp2): 48.1 ml EDV(MOD-sp4): 64.8 ml EDV(MOD-sp2): 72.8 ml LAV(MOD-sp4): 54.9 ml EDV(sp4-el): 64.9 ml EDV(sp2-el): 71.3 ml LVAs ap4: 14.0 cm2 LVAs ap2: 14.4 cm2 LVLs ap4: 6.5 cm LVLs ap2: 7.0 cm ESV(MOD-sp4): 27.1 ml ESV(MOD-sp2): 25.1 ml ESV(sp4-el): 25.8 ml ESV(sp2-el): 25.1 ml EF(MOD-sp4): 58.2 % EF(MOD-sp2): 65.4 % EF(sp4-el): 60.3 % SV(MOD-sp4): 37.7 ml SV(MOD-sp2): 47.6 ml SV(sp4-el): 39.1 ml SI(MOD-sp4): 16.8 ml/m2 SI(MOD-sp2): 21.3 ml/m2 LA A4 area: 19.3 cm2 LA dimension(2D): 2.8 cm TAPSE: 2.1 cm Time Measurements MV dec time: 0.20 sec Doppler Measurements & Calculations MV E max matt: 79.0 cm/sec Lat Peak E' Matt: 9.0 cm/sec Med Peak E' Matt: 9.5 cm/sec MV A max matt: 99.6 cm/sec E/E' lat: 8.7 E/E' med: 8.3 MV E/A: 0.79 MV V2 max: 112.2 cm/sec MV P1/2t max matt: 108.7 cm/sec Ao V2 max: 126.6 cm/sec MV max P.0 mmHg MV P1/2t: 73.3 msec Ao max P.4 mmHg MV V2 mean: 66.4 cm/sec MV dec slope: 434.6 cm/sec2 Ao V2 mean: 86.3 cm/sec MV mean P.0 mmHg MVA(P1/2t): 3.0 cm2 Ao mean P.3 mmHg MV V2 VTI: 27.5 cm Ao V2 VTI: 27.6 cm AV (velocity ratio): 0.80 LV V1 max: 93.4 cm/sec PA V2 max: 83.1 cm/sec LV V1 max P.5 mmHg LV V1 mean P.0 mmHg LV V1 mean: 66.0 cm/sec LV V1 VTI: 21.9 cm ECHO/Echo Complete Interpretation Summary The estimated ejection fraction is 70 %. No evidence for diastolic dysfunction. Trivial mitral valve insufficiency. Ordering Physician: Tomas Gerber Referring Physician: Kelley Wells Performed By: Junie Butts, RODRIGO, RVT
[2024-07-01 04:11] VITALS: BP 145/72; PULSE 79; RESP 18; TEMP 36.6; O2SAT 99
[2024-07-01 04:15] VITALS: O2SAT 99
[2024-07-01 05:00] VITALS: BMI 44.6
[2024-07-01] MEDS: Levothyroxine 25 MCG TABLET PO (05:48)
[2024-07-01 07:00] VITALS: BP 129/73; PULSE 70; RESP 14; TEMP 36.1; O2SAT 96
--- NOTE | 2024-07-01 07:00 | MRI_ITS ---
PROCEDURE: BRAIN WITHOUT CONTRAST (MRIBR), 07/01/2024 REASON FOR EXAM: INTERMITTENT DIZZINESS AND ATAXIA. CVA VS TIA. COMPARISON: CT of same date. TECHNIQUE: Multisequence multiplanar MRI brain was performed without intravenous contrast. Contrast: None. FINDINGS: Cerebrum: No acute infarct, mass, or appreciable intracranial hemorrhage identified. Mild supratentorial white matter abnormalities, nonspecific but compatible with chronic microvascular ischemic changes. Mild/moderate cerebral volume loss. Likely tiny remote infarct in the right frontal periventricular white matter. Cerebellum: Unremarkable. Brainstem: Unremarkable. Ventricles/extra-axial spaces: Mild ventriculomegaly is proportionate to the degree of volume loss. Major flow voids: Grossly unremarkable within limits of nondedicated technique. Paranasal sinuses: Unremarkable. Scalp/calvarium: Unremarkable. Orbits: Mildly prominent CSF in the optic nerve sheaths without tortuosity. Otherwise grossly unremarkable within limits of nondedicated technique. Other: Partially empty sella, can be a normal variant or may be seen in the setting of idiopathic intracranial hypertension amongst other etiologies. MRI/Brain without Contrast IMPRESSION: 1. No definite evidence of an acute intracranial process. 2. Nonspecific findings which could conceivably reflect intracranial hypertensi on. Correlate with clinical evaluation. 3. Additional description as above. Reading Location: [id number]
[2024-07-01 07:36] LABS: D-Dimer Quantitative (DVT/PE) 0.49 FEU/ug/m (0.27-0.49)
[2024-07-01 08:13] LABS: Anion Gap 13 (5-15); BUN 9 mg/dL (4-19); BUN/Creat Ratio 14.7 RATIO (10-20); Calcium,Total 9.4 mg/dL (7.6-11.0); Chloride 98 mmol/L (98-108); Cholesterol 187 mg/dL (<=200); Creatinine, Serum 0.65 mg/dL (0.70-1.20); EST Glomerular Filtration Rate 95 (>60); Estimated Creatinine Clearance 85.66 ml/min (50-250); Glucose 114 mg/dL (70-99); High Density Lipoprotein 86 mg/dL; Low Density Lipoprotein Calc. 86 mg/dL; Sodium Level 135 mmol/L (133-145); Triglycerides 76 mg/dL; Very Low Density Lipoprotein 15 mg/dL (5-40); cholesterol:hdl ratio screen 2.18
[2024-07-01] MEDS: Multivitamins,Therapeutic Tablet 1 TABLET PO (08:22)
[2024-07-01] MEDS: Aspirin E.C. 81 MG Tablet PO (08:22)
[2024-07-01] MEDS: buPROPion (XL) 150 MG TABLET.XL PO (08:22)
[2024-07-01] MEDS: Fluoxetine HCl 40 MG CAPSULE PO (08:22)
[2024-07-01] MEDS: Cyanocobalamin 500 MCG Tablet PO (08:23)
[2024-07-01] MEDS: Acetaminophen 325 MG Tablet 650 MG PO ×2 (08:26→13:29)
[2024-07-01 08:46] LABS: Pro- Brain NATRIURETIC PEPTIDE 71 pg/mL (<=900)
[2024-07-01 10:20] LABS: Osmolality, Urine 199 mOsm/KG
--- NOTE | 2024-07-01 12:18 | STROKE.CONS ---
Assessment and Plan: Stroke Assessment/Plan ANAHI RAMOS (Shelly) is a 69 F with a history of ANAHI RAMOS, is a 69 F with a past medical history of essential hypertension, hyperlipidemia, Tiffany's thyroiditis with subsequent hypothyroidism, morbid obesity, MERLIN, on BiPAP, CAD, diastolic dysfunction without CHF, claudication, fibromyalgia, depression who presents to the ER complaining of dizziness. Neurological examination shows No deficits. Neuroimaging shows MRI Brain: No acute stroke. HbA1C: 5.8, LDL: 86, ECHO, carotid duplex pending. Dizziness unlikely from an acute stroke/TIA. 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 Spent 80 min in evaluation and management HPI Consult Data Date of Consult: 07/01/24 HPI Narrative HPI Narrative: ANAHI RAMOS, is a 69 F with a past medical history of essential hypertension, hyperlipidemia, Tiffany's thyroiditis with subsequent hypothyroidism, morbid obesity, MERLIN, on BiPAP, CAD, diastolic dysfunction without CHF, claudication, fibromyalgia, depression who presents to [facility] ER complaining of dizziness. Her symptoms began approximately 2 days prior to admission on Friday, June 28, 2024 with intermittent dizziness and lightheadedness since that time as she was caring for her eleven 16-year-old dog who is in the process of dying causing her severe acute distress. It got worse. It was precipitated by moving her head side to side and when she got up from chair position. It was in the form of lightheadedness and lasted for few minutes. She has numbness in both hands when she presented to the ER. No weakness, diplopia, slurred speech. She had associated nausea but she denies vomiting. She then went to see one of her medical providers and they noted sharply elevated blood pressure and they encouraged her to come in for further evaluation and treatment, which she agreed to do after she went home and her blood pressure remains persistently elevated in the ~170 mmHg systolic range with patient noticing a corresponding new mild dyspnea on exertion. She states her blood pressure has been very well-controlled on her current regimen and she usually does not have uncontrolled hypertension. Her symptoms are getting better. In the ER she underwent CT of the brain without contrast which showed no acute pathologic changes. [facility] Medical History Tiffany's disease Persistent depressive disorder Depression Osteoporosis BiPAP (biphasic positive airway pressure) dependence Chest pain Abnormal stress test Arthritis Essential hypertension Breast nodule Thyroid nodule Obesity Fibromyalgia Dysthymic disorder MERLIN (obstructive sleep apnea) Hypothyroidism Home Medications ?Medication ?Instructions ?Recorded ?Last Taken ?Type cyanocobalamin (vitamin B-12) 500 500 mcg sublingual DAILY 12/14/14 Unknown History mcg sublingual tablet multivitamin with folic acid 400 1 tab PO DAILY 12/14/14 Unknown History mcg tablet (Thera) trazodone 50 mg tablet 25 mg PO QHS 12/14/14 Unknown History levothyroxine 25 mcg tablet 25 mcg PO DAILY 07/21/15 06/11/22 History biotin 2,500 mcg capsule 2,500 mcg PO DAILY 05/14/22 Unknown History calcium 600 mg-D3 20 mcg-magnesium 1 tab PO DAILY 05/14/22 Unknown History 50 [id number]-[id number]-boron tablet (Calcium 600-D3 Plus (mag-zinc)) cholecalciferol (vitamin D3) 25 2,000 unit PO QHS 05/14/22 Unknown History mcg (1,000 unit) tablet (Vitamin D3) gabapentin 400 mg capsule 800 mg PO QHS 05/14/22 Unknown History aspirin 81 mg tablet,delayed 81 mg PO DAILY 06/07/22 06/11/22 History release (Adult Aspirin Regimen) coenzyme Q10 50 mg capsule (Co 50 mg PO DAILY 12/31/22 Unknown History Q-10) rosuvastatin 5 mg tablet 5 mg PO .3 x week 12/31/22 Unknown History bupropion HCl 150 mg 24 hr tablet, 150 mg PO DAILY #90 tabs 12/12/23 Unknown Rx extended release fluoxetine 40 mg capsule 40 mg PO DAILY #90 caps 02/03/24 Unknown Rx hydrochlorothiazide 25 mg tablet 25 mg PO DAILY #90 tabs 03/23/24 Unknown Rx losartan 100 mg tablet 100 mg PO QHS bp 06/30/24 Unknown History Allergy/AdvReac Type Severity Reaction Status Date / Time hydrochlorothiazide AdvReac hyponatremi Verified 06/30/24 22:07 a Family History Mother CVA (cerebral vascular accident) Thyroid disorder Diabetes Father Kidney disease Cancer Surgical History History of foot surgery History of total right knee replacement (TKR) History of 2 sections History of herniorrhaphy History of laparoscopic cholecystectomy Social History Smoking Status: Never smoker alcohol intake: current alcohol intake frequency: 0-2 drinks per day Alcohol type: wine substance use type: does not use caffeine: Yes Type: coffee Number of servings: 2 Vital Signs Vital Signs Vital Signs: 06/30/24 16:59 06/30/24 17:13 06/30/24 18:11 Temperature 96.9 F L Temperature Source Temporal Pulse Rate 87 Pulse Rate [Lying] Pulse Rate [Sitting (for 1 minute prior to obtaining)] Pulse Rate [Standing (for 1 minute prior to obtaining)] Pulse Strength Respiratory Rate 28 H Respiratory Effort Respiratory Depth Normal Respiratory Pattern Normal Blood Pressure 172/91 H Blood Pressure [Lying] Blood Pressure [Sitting (for 1 minute prior to obtaining)] Blood Pressure [Standing (for 1 minute prior to obtaining)] Blood Pressure Mean 118 Blood Pressure Mean [Lying] Blood Pressure Mean [Sitting (for 1 minute prior to obtaining)] Blood Pressure Mean [Standing (for 1 minute prior to obtaining)] Blood Pressure Source Blood Pressure Position Blood Pressure Location Pulse Ox 98 Oxygen Delivery Method Room Air Room Air Oxygen Flow Rate (L/min) 06/30/24 18:49 06/30/24 20:00 06/30/24 20:25 Temperature 98.1 F Temperature Source Pulse Rate 71 82 78 Pulse Rate [Lying] Pulse Rate [Sitting (for 1 minute prior to obtaining)] Pulse Rate [Standing (for 1 minute prior to obtaining)] Pulse Strength Respiratory Rate 12 18 18 Respiratory Effort Respiratory Depth Respiratory Pattern Blood Pressure 138/69 H 136/77 H 155/86 H Blood Pressure [Lying] Blood Pressure [Sitting (for 1 minute prior to obtaining)] Blood Pressure [Standing (for 1 minute prior to obtaining)] Blood Pressure Mean 92 96 109 Blood Pressure Mean [Lying] Blood Pressure Mean [Sitting (for 1 minute prior to obtaining)] Blood Pressure Mean [Standing (for 1 minute prior to obtaining)] Blood Pressure Source Blood Pressure Position Blood Pressure Location Pulse Ox 97 96 96 Oxygen Delivery Method Room Air Room Air Oxygen Flow Rate (L/min) 06/30/24 22:00 06/30/24 23:39 07/01/24 00:05 Temperature Temperature Source Pulse Rate 72 Pulse Rate [Lying] 77 Pulse Rate [Sitting (for 1 minute prior to obtaining)] 72 Pulse Rate [Standing (for 1 minute prior to obtaining)] 86 Pulse Strength Respiratory Rate 18 Respiratory Effort Normal Non-Labored Respiratory Depth Normal Respiratory Pattern Normal Blood Pressure 152/82 H Blood Pressure [Lying] 157/87 H Blood Pressure [Sitting (for 1 minute prior to obtaining)] 161/88 H Blood Pressure [Standing (for 1 minute prior to obtaining)] 172/77 H Blood Pressure Mean 105 Blood Pressure Mean [Lying] 110 Blood Pressure Mean [Sitting (for 1 minute prior to obtaining)] 112 Blood Pressure Mean [Standing (for 1 minute prior to obtaining)] 108 Blood Pressure Source Blood Pressure Position Blood Pressure Location Pulse Ox 96 Oxygen Delivery Method Room Air Room Air Oxygen Flow Rate (L/min) 07/01/24 00:15 07/01/24 04:11 07/01/24 04:15 Temperature 98.3 F 97.9 F Temperature Source Oral Oral Pulse Rate 69 79 Pulse Rate [Lying] Pulse Rate [Sitting (for 1 minute prior to obtaining)] Pulse Rate [Standing (for 1 minute prior to obtaining)] Pulse Strength Respiratory Rate 18 18 Respiratory Effort Normal Non-Labored Respiratory Depth Normal Respiratory Pattern Normal Blood Pressure 172/95 H 145/72 H Blood Pressure [Lying] Blood Pressure [Sitting (for 1 minute prior to obtaining)] Blood Pressure [Standing (for 1 minute prior to obtaining)] Blood Pressure Mean 120 96 Blood Pressure Mean [Lying] Blood Pressure Mean [Sitting (for 1 minute prior to obtaining)] Blood Pressure Mean [Standing (for 1 minute prior to obtaining)] Blood Pressure Source Monitor Monitor Blood Pressure Position Semi-Fowlers Semi-Fowlers Blood Pressure Location Right Arm Right Arm Pulse Ox 97 99 99 Oxygen Delivery Method Nasal Cannula Nasal Cannula Nasal Cannula Oxygen Flow Rate (L/min) 2 2 2 07/01/24 07:00 07/01/24 10:00 07/01/24 10:00 Temperature 97.0 F L Temperature Source Temporal Pulse Rate 70 Pulse Rate [Lying] Pulse Rate [Sitting (for 1 minute prior to obtaining)] Pulse Rate [Standing (for 1 minute prior to obtaining)] Pulse Strength Normal (2+) Respiratory Rate 14 Respiratory Effort Normal Non-Labored Respiratory Depth Normal Respiratory Pattern Normal Blood Pressure 129/73 H Blood Pressure [Lying] Blood Pressure [Sitting (for 1 minute prior to obtaining)] Blood Pressure [Standing (for 1 minute prior to obtaining)] Blood Pressure Mean 91 Blood Pressure Mean [Lying] Blood Pressure Mean [Sitting (for 1 minute prior to obtaining)] Blood Pressure Mean [Standing (for 1 minute prior to obtaining)] Blood Pressure Source Monitor Blood Pressure Position Sitting Blood Pressure Location Right Arm Pulse Ox 96 Oxygen Delivery Method Room Air Room Air Oxygen Flow Rate (L/min) Weight Weight: 121.8 kg Body Mass Index (BMI) 44.6 EEG Results Procedure Details EEG Procedure Details: ANAHI RAMOS (Shelly) is a 69 year old F with a past medical history of , who presents for evaluation of Electroencephalogram on DATE at TIME NIHSS NIHSS Nursing Documentation NIHSS Nursing Documentation: NIHSS: Ischemic Stroke/TIA Start: 06/30/24 22:58 Text: For PCU Patients: NIH and Neuro Check every 4 Status: Active hours, PRN and with change in RN caregiver. Freq: 1100 Protocol: Activity Type Activity Date Activity User E-sign Co-sign Detail Recorded Client Recorded Date Recorded By Document 07/01/24 07:00 NB desktop 07/01/24 07:46 NB 07/01/24 07:00 NIH Stroke Scale [NIHSS] A score of 0 is normal or asymptomatic . Total possible score is 42. Inpatient: RN or Physician to activate a stroke alert for onset of new stroke symptoms or with NIHSS increase >/= 3 points. Following change in neurological status, NIHSS will be performed per physician order or more frequently PRN. -1a. Level of Consciousness Alert; keenly responsive -1b. LOC Questions Answers BOTH questions correctly. -1c. LOC Commands Performs both tasks correctly . -2. Best Gaze Normal -3. Visual No visual loss -4. Facial Palsy Normal symmetrical movements -5a. Left Arm No drift; arm holds 90 (or 45 ) degrees for full 10 seconds -5b. Right Arm No drift; arm holds 90 (or 45 ) degrees for full 10 seconds -6a. Left Leg No drift; leg holds 30-degree position for full 5 seconds -6b. Right Leg No drift; leg holds 30-degree position for full 5 seconds -7. Limb Ataxia Absent -8. Sensory Normal; no sensory loss -9. Best Language No aphasia; normal -10. Dysarthria Normal -11. Extinction and Inattention No abnormality -Total 0 Query Text:A score of 0 is normal or asymptomatic. Total possible score is 42 . ED: Notify Physician for NIHSS increase by > / = 3 points. Inpatient: RN or Physician to activate a stroke alert for NIHSS increase of > / = 3 points. Coma Scale [Assess] -Eye Opening Spontaneous -Motor Obeys Commands -Verbal Oriented [Total] -Coma Scale Total 15 NIHSS 1a. Level of Consciousness: Alert; keenly responsive 1b. LOC Questions: Answers BOTH questions correctly. 1c. LOC Commands: Performs both tasks correctly. 2. Best Gaze: Normal 3. Visual: No visual loss 4. Facial Palsy: Normal symmetrical movements 5a. Left Arm: No drift; arm holds 90 (or 45) degrees for full 10 seconds 5b. Right Arm: No drift; arm holds 90 (or 45) degrees for full 10 seconds 6a. Left Leg: No drift; leg holds 30-degree position for full 5 seconds 6b. Right Leg: No drift; leg holds 30-degree position for full 5 seconds 7. Limb Ataxia: Absent 8. Sensory: Normal; no sensory loss 9. Best Language: No aphasia; normal 10. Dysarthria: Normal 11. Extinction and Inattention: No abnormality Total: 0 Physical Exam Neuro Neuro Narrative: Awake, alert, oriented X3 No aphasia, speech fluent CN 2-12 intact Motor power 5/5 Sensation: intact No ataxia Lab / Micro Data 06/30/24 15:35 07/01/24 07:06 Labs: Laboratory Results - last 24 hr 06/30/24 15:35: WBC 6.5, RBC 4.60, Hgb 14.7, Hct 41.4, MCV 90.0, MCH 32.0, MCHC 35.5, RDW Std Deviation 39.7, RDW Coeff of Poly 12.0, Plt Count 341, MPV 9.1, Immature Gran % (Auto) 0.200, Neut % (Auto) 66.4, Lymph % (Auto) 24.1, [place] % (Auto) 6.8, Eos % (Auto) 1.9, Baso % (Auto) 0.6, Absolute Neuts (auto) 4.3, Absolute Lymphs (auto) 1.56, Nucleated RBC % 0, PT 12.3, INR 0.9, APTT 24.7, Sodium 130 L, Potassium 3.7, Chloride 91 L, Carbon Dioxide 25.3, Anion Gap 14, BUN 10, Creatinine 0.75, Est GFR (MDRD) Non-Af 85, BUN/Creatinine Ratio 13.2, Glucose 150 H, Hemoglobin A1c 5.8, Calcium 9.6, TSH 1.210, Ethyl Alcohol < 10.1 06/30/24 22:35: Serum Osmolality 273 L, Vitamin B12 1511 H, Serum Folate 15.10 06/30/24 23:12: Urine Osmolality 199, Urine Opiates Screen NEGATIVE, U Buprenorphine Qual NEGATIVE, Ur Oxycodone Screen NEGATIVE, Urine Methadone Screen NEGATIVE, Urine Fentanyl Screen NEGATIVE, Ur Barbiturates Screen NEGATIVE, Ur Phencyclidine Scrn NEGATIVE, Ur Amphetamines Screen NEGATIVE, U Benzodiazepines Scrn NEGATIVE, Urine Cocaine Screen NEGATIVE, U Cannabinoids Screen NEGATIVE 07/01/24 07:06: D-Dimer Quant (PE/DVT) 0.49, Sodium 135, Potassium 4.0, Chloride 98, Carbon Dioxide 23.0, Anion Gap 13, BUN 9, Creatinine 0.65 L, Estim Creat Clear Calc 85.66, Est GFR (MDRD) Non-Af 95, BUN/Creatinine Ratio 14.7, Glucose 114 H, Calcium 9.4, NT pro BNP II 71, Triglycerides 76, Cholesterol 187, LDL Cholesterol, Calc 86, VLDL Cholesterol 15, HDL Cholesterol 86, Cholesterol/HDL Ratio 2.18 Rhythm Strip Rhythm Strip: Sinus Rhythm Rate: 85 Ectopy: None Imaging Radiology Impression Chest X-Ray 06/30/24 17:55 IMPRESSION: Bibasilar airspace opacities, [id number], most likely to represent atelectasis. Pneumonia to be ruled out clinically. There has been no significant change since prior examination. Reading Location: [facility] Brain CT 06/30/24 18:20 IMPRESSION: No acute intracranial hemorrhage, mass effect or midline shift. Reading Location: [facility] Chest CT 07/01/24 02:17 IMPRESSION: No acute infiltrate or consolidation is seen. No definitive evidence of pneumonia is seen. 1.6 cm subcutaneous nodule seen within the left upper abdominal wall. This is best seen on image 93/121. This is incompletely characterized. Differential possibility includes, but not limited to sebaceous cyst versus other etiologies. Focal ultrasound may be performed for further evaluation. One or more dose reduction techniques were used (e.g., Automated exposure control, adjustment of the mA and/or kV according to patient size, use of iterative reconstruction technique). Reading Location: [facility] Brain MRI 07/01/24 07:00 IMPRESSION: 1. No definite evidence of an acute intracranial process. 2. Nonspecific findings which could conceivably reflect intracranial hypertension. Correlate with clinical evaluation. 3. Additional description as above. Reading Location: [id number] Active Medications Active Medications Active Medications: Current Medications Generic Name Dose Route Start Last Admin Trade Name Freq PRN Reason Stop Dose Admin Acetaminophen 650 mg 06/30/24 22:58 07/01/24 08:26 Acetaminophen 325 Mg Tablet PO 650 mg Q4H PRN PRN Administration Pain 1-10 Or Fever>99.6 Aspirin 81 mg 07/01/24 08:00 07/01/24 08:22 Aspirin E.C. 81 Mg Tablet PO 81 mg BREAKFAST HARDEEP Administration Atorvastatin Calcium 10 mg 07/01/24 22:00 Atorvastatin Calcium 10 Mg Tablet PO [id number] HARDEEP Bupropion HCl 150 mg 07/01/24 10:00 07/01/24 08:22 Bupropion (Xl) 150 Mg Tablet.Xl PO 150 mg DAILY HARDEEP Administration Cholecalciferol 50 mcg 07/01/24 22:00 Cholecalciferol (Vit D3) 25 Mcg Tablet (1,000 Units) PO QHS HARDEEP Cyanocobalamin 500 mcg 07/01/24 10:00 07/01/24 08:23 Cyanocobalamin 500 Mcg Tablet PO 500 mcg DAILY HARDEEP Administration Enoxaparin Sodium 40 mg 07/01/24 10:00 07/01/24 08:24 Enoxaparin 40 Mg/0.4 Ml Syringe SC Not Given BID HARDEEP Fluoxetine HCl 40 mg 07/01/24 10:00 07/01/24 08:22 Fluoxetine Hcl 40 Mg Capsule PO 40 mg DAILY HARDEEP Administration Sodium Chloride 1,000 mls @ 70 mls/hr 06/30/24 22:07 07/01/24 10:12 IV 07/01/24 12:24 0 mls/hr .[id number] HARDEEP Infusion Protocol Sodium Chloride 100 mls @ 15 mls/hr 06/30/24 23:21 IV .Q6H40M PRN Saline Flush Sodium Chloride 100 mls @ 15 mls/hr 06/30/24 23:21 IV .Q6H40M PRN Additional IVPB Infusion Levothyroxine Sodium 25 mcg 07/01/24 06:00 07/01/24 05:48 Levothyroxine 25 Mcg Tablet PO 25 mcg DAILY@0600 HARDEEP Administration Meclizine HCl 12.5 mg 06/30/24 22:58 Meclizine 12.5 Mg Tablet PO TID PRN PRN DIZZINESS Multivitamins 1 tablet 07/01/24 08:00 07/01/24 08:22 Multivitamins,Therapeutic Tablet PO 1 tablet DAILYCM HARDEEP Administration Scopolamine HBr 1 patch 06/30/24 22:58 07/01/24 00:12 Scopolamine 1mg/72hr Patch TD 1 patch Q3D HARDEEP Administration Sodium Chloride 10 - 40 ml 06/30/24 23:21 07/01/24 00:15 0.9% Saline Lock 10 Ml Syringe IV 10 ml UD PRN Administration SALINE FLUSH Trazodone HCl 25 mg 06/30/24 22:58 07/01/24 00:10 Trazodone 50 Mg Tablet PO 25 mg QHS HARDEEP Administration
[2024-07-01 14:31] VITALS: BP 149/78; PULSE 94; RESP 18; TEMP 36.7; O2SAT 93
--- NOTE | 2024-07-01 15:10 | CASEMGMT ---
SW did not complete a PHQ 9 as patient did not have a Stroke or a TIA. Caro RICH
--- NOTE | 2024-07-01 15:12 | PCM.DC ---
Discharge Instructions Diet Discharge Diet: Low fat / Low cholesterol DC O2, CPAP, BIPAP needs Home O2 Discharge instructions: No Dressing / Incision Discharge Activity: Return to Normal Activity Dressing / Incision Call your doctor if you observe: Fever of 101 or Higher, Shortness of breath, Dizziness, Fainting spells, Swelling in the ankles, Chest pain and Increased palpitations (irregular heartbeat) Follow Up Care Test Results: Test results from this visit will be discussed in further detail at your follow-up appointment, if applicable. Discharge Plan Admission Admit Date/Time: 06/30/24 21:57 Attending Provider: Dieudonne Olmos Primary Care Provider: Kelley Wells Consulting Providers: Jackson Garza; Carlos Sousa; Oralia Sharp; Ivon Livingston; Tiana Mock; Low Pinon; Park Lafleur; Anurag Drake; Pk Anthony; Gagan Jones; Aparna Limon; Jean Pierre Eugene; Verónica Hinojosa; Vale Lyon; Rey Espinosa; Brett Momin; Keith Mendez; Obinna Wells; Liza Hernandez; Bell Parisi; Tomas Gerber Discharge Orders/Prescriptions Prescriptions: New amlodipine [Norvasc] 5 mg tablet 5 mg PO DAILY Qty: 30 0RF Continued gabapentin 400 mg capsule 800 mg PO QHS Rx Instructions: Start on 05/30/22 Ca-D3-mag [id number] [Calcium 600-D3 Plus (mag-zinc)] 600 mg calcium- 20 mcg-50 mg tablet 1 tab PO DAILY biotin 2,500 mcg capsule 2,500 mcg PO DAILY rosuvastatin 5 mg tablet 5 mg PO .3 x week Rx Instructions: MWF coenzyme Q10 [Co Q-10] 50 mg capsule 50 mg PO DAILY bupropion HCl 150 mg tablet extended release 24 hr 150 mg PO DAILY Qty: 90 2RF trazodone 50 MG tablet 25 mg PO QHS Patient Comments: SLEEP multivitamin with folic acid [Thera] 1 TABLET tablet 1 tab PO DAILY Patient Comments: supplement cyanocobalamin (vitamin B-12) 500 MCG tablet, sublingual 500 mcg sublingual DAILY Patient Comments: supplement cholecalciferol (vitamin D3) [Vitamin D3] 25 mcg (1,000 unit) tablet 2,000 unit PO QHS Patient Comments: supplement levothyroxine 25 MCG tablet 25 mcg PO DAILY Patient Comments: thyroid med losartan 100 mg tablet 100 mg PO QHS Rx Instructions: TAKE 1 TABLET BY MOUTH DAILY aspirin [Adult Aspirin Regimen] 81 mg tablet,delayed release (DR/EC) 81 mg PO DAILY fluoxetine 40 mg capsule 40 mg PO DAILY Qty: 90 1RF Discontinued hydrochlorothiazide 25 mg tablet 25 mg PO DAILY Qty: 90 3RF Referrals / Follow Up: Kelley Wells MD [Primary Care Provider] - Within 1 Week Disposition Disposition (needs filled in before D/C Order can be placed): Home, Self Care
--- NOTE | 2024-07-01 16:06 | CASEMGMT ---
ÓSCAR HUYNH NOTE: Discharge order is in. Per PT/OT, no therapy is recommended. ÓSCAR HUYNH to room. Introduced self and role. Rx amlodipine has been sent to [facility]. Pt made aware. She states has been on amlodipine in the past and it did not work and Dr Gaming had taken her off of it. She states this was a couple yrs ago and she does not remember the specifics of why she was taken off. ÓSCAR HUYNH offered to contact Dr Olmos to inform him of this, but pt states she prefers to f/u with Dr Gaming's office about this herself and plans to call them tomorrow, stating she does not want to wait and states, I just need to get out of here. [place] HERMOSILLON ÓSCAR HUYNH
--- NOTE | 2024-07-01 16:11 | DS.PCM_ITS ---
Providers Date of Admission: 06/30/24 Primary Care Physician: Dr. Kelley Wells MD Consultations 06/30/24 22:58 Consult: Tele-Neurology Routine Consulting Provider: [facility] Reason for Consult: Acute Ischemic Stroke/TIA EMERGENT Consult: No MD Notified: Yes Date Notified: 07/01/24 Time Notified: 00:48 Method of Notification: Answering Service Method of Consult:: Telemedicine Nursing Unit Staff Notify [facility] of Tele-Neurology Consult: Yes Reason For Visit: INTERMITTENT VERTIGO AND ATAXIA Diagnosis Discharge Diagnosis (1) Dizziness: Status: Acute Code(s): R42 - Dizziness and giddiness (2) Ataxia: Status: Acute Code(s): R27.0 - Ataxia, unspecified (3) Hyponatremia: Status: Acute Code(s): E87.1 - Hypo-osmolality and hyponatremia (4) Adverse drug reaction: Status: Acute Code(s): T50.905A - Adverse effect of unspecified drugs, medicaments and biological substances, initial encounter Qualifiers: Encounter type: initial encounter Qualified Code(s): T50.905A - Adverse effect of unspecified drugs, medicaments and biological substances, initial encounter (5) Uncontrolled hypertension: Status: Acute Code(s): I10 - Essential (primary) hypertension (6) Acute reaction to situational stress: Status: Acute Code(s): F43.0 - Acute stress reaction (7) Abnormal CXR: Status: Acute Code(s): R93.89 - Abnormal findings on diagnostic imaging of other specified body structures (8) Morbid obesity with BMI of 40.0-44.9, adult: Status: Acute Code(s): E66.01 - Morbid (severe) obesity due to excess calories; Z68.41 - Body mass index [BMI] 40.0-44.9, adult (9) Family history of CVA: Status: Chronic Code(s): Z82.3 - Family history of stroke (10) Hyperlipidemia: Status: Acute Code(s): E78.5 - Hyperlipidemia, unspecified Qualifiers: Hyperlipidemia type: unspecified Qualified Code(s): E78.5 - Hyperlipidemia, unspecified Medications at Discharge Home Medications cyanocobalamin (vitamin B-12) 500 mcg sublingual tablet 500 mcg sublingual DAILY 12/14/14 multivitamin with folic acid 400 mcg tablet (Thera) 1 tab PO DAILY 12/14/14 trazodone 50 mg tablet 25 mg PO QHS 12/14/14 levothyroxine 25 mcg tablet 25 mcg PO DAILY 07/21/15 biotin 2,500 mcg capsule 2,500 mcg PO DAILY 05/14/22 calcium 600 mg-D3 20 mcg-magnesium 50 ya-Ve-sbdayy-gonzalo-boron tablet (Calcium 600-D3 Plus (mag-zinc)) 1 tab PO DAILY 05/14/22 cholecalciferol (vitamin D3) 25 mcg (1,000 unit) tablet (Vitamin D3) 2,000 unit PO QHS 05/14/22 gabapentin 400 mg capsule 800 mg PO QHS 05/14/22 aspirin 81 mg tablet,delayed release (Adult Aspirin Regimen) 81 mg PO DAILY 06/07/22 coenzyme Q10 50 mg capsule (Co Q-10) 50 mg PO DAILY 12/31/22 rosuvastatin 5 mg tablet 5 mg PO .3 x week 12/31/22 bupropion HCl 150 mg 24 hr tablet, extended release 150 mg PO DAILY #90 tabs 12/12/23 fluoxetine 40 mg capsule 40 mg PO DAILY #90 caps 02/03/24 losartan 100 mg tablet 100 mg PO QHS bp 06/30/24 amlodipine 5 mg tablet (Norvasc) 5 mg PO DAILY #30 tabs 07/01/24 Hospital Course Operations None Procedures 2-D Echocardiogram Summary of Care Provided Minutes Spent on Discharge: 33 Hospital Course: Per HPI: ANAHI CANTRELL, is a 69 F with a past medical history of essential hypertension; on losartan and hydrochlorothiazide, hyperlipidemia; on rosuvastatin 3 times per week, history of Tiffany's thyroiditis with subsequent hypothyroidism; on levothyroxine, morbid obesity; with BMI of 45.7 this admission, [facility]; on BiPAP, history of CAD; on baby aspirin daily, history of diastolic dysfunction without CHF, history of claudication, history of COVID- 19, history of fibromyalgia; on gabapentin, history of depression; on bupropion, trazodone and fluoxetine, history of laparoscopic cholecystectomy, history of hernia; s/p repair, remote history of 2 C-sections, family history of CVA, history of osteoporosis and OA; s/p right TKR who presents to [facility] ER complaining of dizziness and ataxia. Ms. Cantrell reports her symptoms began approximately 2 days prior to admission on Friday, June 28, 2024 with intermittent dizziness and lightheadedness since that time as she was caring for her eleven 16-year-old dog who is in the process of dying causing her severe acute distress and causing her to drink more wine than she normally would. She also admits to associated nausea but she denies vomiting which caused her to recently increase her free water intake because she felt like she might be dehydrated. She then went to see one of her medical providers and they noted sharply elevated blood pressure and they encouraged her to come in for further evaluation and treatment, which she agreed to do after she went home and her blood pressure remains persistently elevated in the ~170 mmHg systolic range with patient noticing a corresponding new mild dyspnea on exertion. She states her blood pressure has been very well-controlled on her current regimen and she usually does not have uncontrolled hypertension. She denies associated fever, chills, chest pain, shortness of breath, headache, slurred speech or other focal neurologic deficits but she was noted to be markedly ataxic upon her evaluation in the ER prompting ER physician to call hospitalist for admission. In the ER she underwent CT of the brain without contrast which showed no acute pathologic changes along with a chest x-ray that showed suspected atelectasis and unremarkable laboratory studies except for mild Hyponatremia of 130 mmol/L present on admission suspected to be due to Adverse Drug Reaction to hydrochlorothiazide which may be contributing to her symptoms of ataxia and dizziness as her previous baseline levels showed she is usually between 137 mmol/L and 141 mmol/L since 2019 complicated by clinical evidence of Uncontrolled Hypertension. She was then admitted to the PCU under observation status for ongoing care for status expected to be less than 2 midnights. Hospital Course: 1. Lightheadedness and dizziness with a headache with aura and light sensitivity?69-year-old female presented to the hospital with lightheadedness and dizziness, she did have an ataxic gait on admission which has resolved. MRI was negative for stroke and carotid Dopplers were not ordered on admission however given the lack of findings on the MRI this can be deferred to outpatient care. Will continue with her home Lipitor as well as her home aspirin. Neurology did not have any further recommendations on medications other than controlling her blood pressure which we will do. She did have some hyponatremia which was transient however her hydrochlorothiazide was discontinued on admission because of this and given her anxiety we will transition her to Norvasc 5 mg p.o. daily with outpatient monitoring and adjustment of her medications by her PCP. Of note she does have a cardiology appointment in August. I discussed with her the plan for discharge today and she would like to go home. Echo was also obtained which was unremarkable with an EF of 70% and no diastolic dysfunction. 2. Anxiety, depression, hypothyroidism, essential hypertension, hyperlipidemia are all chronic medical conditions which complicate her care. Her home medications were continued where appropriate Physical Exam Narrative General: Alert, Oriented x3, Cooperative, No apparent distress HEENT: Atraumatic, PERRLA, EOMI, Normocephalic Oral: Moist Mucosa Neck: Supple, No JVD, no bruit Lungs: Diminished, Normal air movement, No rhonchi, No wheeze, No rales Cardiovascular: Regular rate, Regular Rhythm, Normal S1, Normal S2, No murmurs Abdomen: Soft, Non Tender, Non-Distended, No Hepato-splenomegaly Extremities: No edema, Capillary Refill Less than 3 Seconds Skin: No rashes, No breakdown Musculoskeletal: No Tenderness to Palpation of Joints or Extremities Neurological: No focal neurological deficits, Motor Exam 5/5 strength throughout, Sensory exam intact to light touch and pain Psych/Mental Status: Flat, anxious Weight / BMI Weight Weight: 268 lb 8.368 oz Body Mass Index (BMI) 44.6 ABG / Lab / Microbiology Data 06/30/24 15:35 07/01/24 07:06 Laboratory: Laboratory Results - last 24 hr 06/30/24 15:35: WBC 6.5, RBC 4.60, Hgb 14.7, Hct 41.4, MCV 90.0, MCH 32.0, MCHC 35.5, RDW Std Deviation 39.7, RDW Coeff of Poly 12.0, Plt Count 341, MPV 9.1, Immature Gran % (Auto) 0.200, Neut % (Auto) 66.4, Lymph % (Auto) 24.1, [place] % (Auto) 6.8, Eos % (Auto) 1.9, Baso % (Auto) 0.6, Absolute Neuts (auto) 4.3, Absolute Lymphs (auto) 1.56, Nucleated RBC % 0, PT 12.3, INR 0.9, APTT 24.7, S odium 130 L, Potassium 3.7, Chloride 91 L, Carbon Dioxide 25.3, Anion Gap 14, BUN 10, Creatinine 0.75, Est GFR (MDRD) Non-Af 85, BUN/Creatinine Ratio 13.2, G lucose 150 H, Hemoglobin A1c 5.8, Calcium 9.6, TSH 1.210, Ethyl Alcohol < 10.1 06/30/24 22:35: Serum Osmolality 273 L, Vitamin B12 1511 H, Serum Folate 15.10 06/30/24 23:12: Urine Osmolality 199, Urine Opiates Screen NEGATIVE, U Buprenorphine Qual NEGATIVE, Ur Oxycodone Screen NEGATIVE, Urine Methadone Screen NEGATIVE, Urine Fentanyl Screen NEGATIVE, Ur Barbiturates Screen NEGATIVE, Ur Phencyclidine Scrn NEGATIVE, Ur Amphetamines Screen NEGATIVE, U Benzodiazepines Scrn NEGATIVE, Urine Cocaine Screen NEGATIVE, U Cannabinoids Screen NEGATIVE 07/01/24 07:06: D-Dimer Quant (PE/DVT) 0.49, Sodium 135, Potassium 4.0, Chloride 98, Carbon Dioxide 23.0, Anion Gap 13, BUN 9, Creatinine 0.65 L, Estim Creat Clear Calc 85.66, Est GFR (MDRD) Non-Af 95, BUN/Creatinine Ratio 14.7, Glucose 114 H, Calcium 9.4, NT pro BNP II 71, Triglycerides 76, Cholesterol 187, LDL Cholesterol, Calc 86, VLDL Cholesterol 15, HDL Cholesterol 86, Cholesterol/HDL Ratio 2.18 Radiography Diagnostic Testing: Radiology Impression Chest X-Ray 06/30/24 17:55 IMPRESSION: Bibasilar airspace opacities, [id number], most likely to represent atelectasis. Pneumonia to be ruled out clinically. There has been no significant change since prior examination. Reading Location: [id number] Brain CT 06/30/24 18:20 IMPRESSION: No acute intracranial hemorrhage, mass effect or midline shift. Reading Location: [id number] Chest CT 07/01/24 02:17 IMPRESSION: No acute infiltrate or consolidation is seen. No definitive evidence of pneumonia is seen. 1.6 cm subcutaneous nodule seen within the left upper abdominal wall. This is best seen on image 93/121. This is incompletely characterized. Differential possibility includes, but not limited to sebaceous cyst versus other etiologies. Focal ultrasound may be performed for further evaluation. One or more dose reduction techniques were used (e.g., Automated exposure control, adjustment of the mA and/or kV according to patient size, use of iterative reconstruction technique). Reading Location: [id number] Echocardiogram 07/01/24 02:56 Interpretation Summary The estimated ejection fraction is 70 %. No evidence for diastolic dysfunction. Trivial mitral valve insufficiency. Ordering Physician: Tomas Gerber Referring Physician: Kelley Wells Performed By: Junie Butts, RODRIGO, RVT Brain MRI 07/01/24 07:00 IMPRESSION: 1. No definite evidence of an acute intracranial process. 2. Nonspecific findings which could conceivably reflect intracranial hypertension. Correlate with clinical evaluation. 3. Additional description as above. Reading Location: [id number] D/C Instructions Discharge Diet: Low fat / Low cholesterol Call your doctor if you observe: Fever of 101 or Higher, Shortness of breath, Dizziness, Fainting spells, Swelling in the ankles, Chest pain and Increased palpitations (irregular heartbeat) DC O2, CPAP, BIPAP Needs Home O2 Discharge instructions: No Meaningful Use Info Meaningful Use Meaningful Use Diagnoses (Choose all that apply): None applicable Ischemic Stroke Statin Dosing Therapy Reference: STATIN DOSE THERAPY REFERENCE: * Patients > 75 years receive moderate or high dose statin therapy. * Patients 75 years or YOUNGER should receive HIGH intensity statin dose unless contraindicated. You will be required to document reason for non-treatment if statin daily dose does not meet guidelines. HIGH DOSE STATIN THERAPY DAILY Atorvastatin > than or = to 40 mg Rosuvastatin > than or = to 20 mg Amlodipine + Atorvastatin > than or = to 2.5/40 mg Ezetimibe + Simvastatin 10/80 mg Simvastatin 80mg Discharge Plan Admission Admit Date/Time: 06/30/24 21:57 Attending Provider: Dieudonne Olmos Primary Care Provider: Kelley Wells Consulting Providers: Jackson Garza; Carlos Sousa; Oralia Sharp; Ivon Livingston; Tiana Mock; Low Pinon; Park Lafleur; Anurag Drake; Pk Anthony; Gagan Jones; Aparna Limon; Jean Pierre Eugene; Verónica Hinojosa; Vale Lyon; Rey Espinosa Karthik; Brett Momin; Keith Mendez; Obinna Wells; Liza Hernandez; Bell Parisi; Tomas Gerber Discharge Orders/Prescriptions Prescriptions: New amlodipine [Norvasc] 5 mg tablet 5 mg PO DAILY Qty: 30 0RF Continued gabapentin 400 mg capsule 800 mg PO QHS Rx Instructions: Start on 05/30/22 Ca-D3-mag pn-iavi-pet-nicholas-bor [Calcium 600-D3 Plus (mag-zinc)] 600 mg calcium- 20 mcg-50 mg tablet 1 tab PO DAILY biotin 2,500 mcg capsule 2,500 mcg PO DAILY rosuvastatin 5 mg tablet 5 mg PO .3 x week Rx Instructions: MWF coenzyme Q10 [Co Q-10] 50 mg capsule 50 mg PO DAILY bupropion HCl 150 mg tablet extended release 24 hr 150 mg PO DAILY Qty: 90 2RF trazodone 50 MG tablet 25 mg PO QHS Patient Comments: SLEEP multivitamin with folic acid [Thera] 1 TABLET tablet 1 tab PO DAILY Patient Comments: supplement cyanocobalamin (vitamin B-12) 500 MCG tablet, sublingual 500 mcg sublingual DAILY Patient Comments: supplement cholecalciferol (vitamin D3) [Vitamin D3] 25 mcg (1,000 unit) tablet 2,000 unit PO QHS Patient Comments: supplement levothyroxine 25 MCG tablet 25 mcg PO DAILY Patient Comments: thyroid med losartan 100 mg tablet 100 mg PO QHS Rx Instructions: TAKE 1 TABLET BY MOUTH DAILY aspirin [Adult Aspirin Regimen] 81 mg tablet,delayed release (DR/EC) 81 mg PO DAILY fluoxetine 40 mg capsule 40 mg PO DAILY Qty: 90 1RF Discontinued hydrochlorothiazide 25 mg tablet 25 mg PO DAILY Qty: 90 3RF Referrals / Follow Up: Kelley Wells MD [Primary Care Provider] - Within 1 Week Disposition Disposition (needs filled in before D/C Order can be placed): Home, Self Care Charges/Coding Visit Charges Inpatient E&M: 56085 Disch Hosp >30min
== END 2024-07-01 16:26 | disposition home or self-care (01) ==
LOC: ED 21:27 → PCU 22:10
PROVIDERS: Admitting Provider Internal Medicine; Emergency Provider Emergency Medicine; PCP Internal Medicine; Visit Provider Family Medicine
DX: R42 Dizziness and giddiness (principal); Z68.42 Body mass index [BMI] 45.0-49.9, adult; E66.01 Morbid (severe) obesity due to excess calories; R27.0 Ataxia, unspecified; G47.33 Obstructive sleep apnea (adult) (pediatric); Z79.890 Hormone replacement therapy; T50.905A Adverse effect of unspecified drugs, medicaments and biological substances, initial encounter; F43.0 Acute stress reaction; I10 Essential (primary) hypertension; E03.9 Hypothyroidism, unspecified; E78.5 Hyperlipidemia, unspecified; M79.7 Fibromyalgia; I25.10 Atherosclerotic heart disease of native coronary artery without angina pectoris; E06.3 Autoimmune thyroiditis; R06.02 Shortness of breath; E87.1 Hypo-osmolality and hyponatremia; F34.1 Dysthymic disorder; Z79.899 Other long term (current) drug therapy; Z79.82 Long term (current) use of aspirin
CPT/HCPCS: 36415; 70450; 70551; 71045; 71250; 80048; 80061; 80307; 82077; 82607; 82746; 83036; 83880; 83930; 83935; 84443; 85025; 85379; 85610; 85730; 93005; 93306; 97161; 97166; 97802; 99221; 99285; A4216; G0378

== ENCOUNTER → 2024-07-24 | Outpatient (CLI) | payer MEDICARE, OTHER, SELFPAY ==
[2024-07-24 11:31] LABS: Anion Gap 12 (5-15); BUN 12 mg/dL (4-19); BUN/Creat Ratio 15.8 RATIO (10-20); Calcium,Total 9.6 mg/dL (7.6-11.0); Carbon Dioxide 24.6 mmol/L (21.0-32.0); Chloride 97 mmol/L (98-108); Creatinine, Serum 0.75 mg/dL (0.70-1.20); EST Glomerular Filtration Rate 86 (>60); Glucose 121 mg/dL (70-99); Potassium 4.2 mmol/L (3.3-5.1); Sodium Level 134 mmol/L (133-145)
== END | disposition home or self-care (01) ==
LOC: MTLAB 08:34
PROVIDERS: PCP Internal Medicine; Referring Provider Nurse Practitioner Family; Visit Provider Nurse Practitioner Family
DX: Z51.81 Encounter for therapeutic drug level monitoring (principal); Z79.899 Other long term (current) drug therapy
CPT/HCPCS: 36415; 80048

== ENCOUNTER → 2024-11-02 | Outpatient (CLI) | payer MEDICARE, OTHER, SELFPAY ==
[2024-11-02 15:44] LABS: Hematocrit 43.6 % (37-47); Hemoglobin 14.7 g/dL (12.0-15.0); Immature Granulocytes Count 0.020 X10^3/uL (0.0-0.0); Mean Corp Hgb Conc 33.7 g/dL (32-36); Mean Corpuscular Volume 94.4 fL (81-99); Mean Platelet Vol. 9.3 fl (6.2-12.0); NRBC Flagged by Analyzer 0 % (0-5); Platelet Count 331 K/mm3 (150-450); RBC Distribution Width CV 14.3 % (11.6-14.6); RBC Distribution Width SD 49.7 fl (35.1-43.9); Red Blood Count 4.62 M/mm3 (4.2-5.4); White Blood Count 7.4 K/mm3 (4.4-11.0)
[2024-11-02 16:14] LABS: Magnesium 2.0 mg/dL (1.5-2.2)
[2024-11-02 16:17] LABS: AST(SGOT) 25 U/L (<=31); Alanine Aminotransfer ALT/SGPT 22 U/L (<=34); Albumin, Serum 4.2 g/dL (3.4-4.8); Alkaline Phosphatase 88 U/L (35-104); Anion Gap 12 (5-15); BUN 18 mg/dL (4-19); BUN/Creat Ratio 27.2 RATIO (10-20); Calcium,Total 9.7 mg/dL (7.6-11.0); Carbon Dioxide 25.5 mmol/L (21.0-32.0); Chloride 99 mmol/L (98-108); Globulin 3.0 g/dL (2.2-4.2); Glucose 111 mg/dL (70-99); Potassium 4.1 mmol/L (3.3-5.1)
--- OUTSIDE RECORDS SUMMARY | 2024-11-02 23:01 | XMS RPT_ITS | CCD ---
Author Organization [facility] Care Team Providers Care Weight Reducing Technician Name Role Phone Emilee Condon MD Primary Care Provider Dr. Emilee Condon Primary Care Provider Dr. Emilee Condon Referring Provider Dr. Francisco Javier Gaming Attending Provider [phone] Francisco Javier Gaming Other Provider Emilee Condon MD Primary Care Provider Dr. Emilee Condon Primary Care Provider Dr. Emilee Condon Referring Provider Amberly, Dr. Mcintyre Attending Provider [phone] Francisco Javier Gaming Other Provider Roof DEVELOPMENT DIRECTOR, DEVELOPMENT DIRECTOR-C Cristian Leonard Attending Provider Dr. Jordi Duarte Attending Provider [phone] PROVIDER, UNKNOWN Referring Unavailable PROVIDER, UNKNOWN Attending Unavailable EMILEE CONDON Primary Care Unavailable CRISTIAN VENEGAS Admitting Unavailable CRISTIAN VENEGAS Attending Unavailable EMILEE CONDON Primary Care Unavailable Emilee Condon MD Primary Care Provider Limon RACE CAR DRIVER.COMMERCIAL CARPENTER, Kasie Unavailable Leandro RACE CAR DRIVER.WEIGHT TRAINING INSTRUCTOR, Sarina Unavailable Leandro RACE CAR DRIVER.WEIGHT TRAINING INSTRUCTOR, Sarina Unavailable EMILEE CONDON Primary Care Unavailable Leandro RACE CAR DRIVER.WEIGHT TRAINING INSTRUCTOR, Sarina Unavailable Limon RACE CAR DRIVER.COMMERCIAL CARPENTER, Kasie Unavailable Limon RACE CAR DRIVER.COMMERCIAL CARPENTER, Kasie Unavailable Talampas, Emilee D Primary Care Unavailable Jackson Garza Consulting Unavailable Tomas Gerber Attending Unavailable Tomas Gerber Admitting Unavailable Adeli, Amir Consulting Unavailable Hinduja, Oralia Consulting Unavailable Miki, Ivon Consulting Unavailable Zha, Tiana Consulting Unavailable Kathrin, Low Consulting Unavailable Miquel, Park Consulting Unavailable Bittar, Anurag Consulting Unavailable Pk Anthony Consulting Unavailable Gagan Jones Consulting Unavailable Aparna Limon Consulting Unavailable Jean Pierre Eugene Consulting Unavailable Verónica Hinojosa Consulting Unavailable Vale Lyon Consulting Unavailable Rey Espinosa Consulting UnavailBrett Jane Consulting Unavailable Keith Mendez Consulting Unavailable Obinna Wells Consulting Unavailable Liza Hernandez Consulting Unavailable Bell Parisi Consulting Unavailable Tomas Gerber Consulting Unavailable Talampas, Emilee D Primary Care Unavailable Talampas, Emilee D Referring Unavailable Blossom Lowry NP Attending Unavailable Talampas, Emilee D Primary Care Unavailable Tl Elkins Attending Unavailable Talampas, Emilee D Primary Care Unavailable Tl Elkins Attending Unavailable Talampas, Emilee D Primary Care Unavailable Tl Elkins Attending Unavailable Talampas, Emilee D Primary Care Unavailable Roof DEVELOPMENT DIRECTOR, Cristian H Referring Unavailable Francisco Javier Gaming Attending Unavailable Talampas, Emilee D Primary Care Unavailable Ar Witt Attending Unavailbuffy e Talampas, Emilee D Primary Care Unavailable Roof DEVELOPMENT DIRECTOR, Cristian H Referring Unavailable Roof DEVELOPMENT DIRECTOR, Cristian Leonard Attending Unavailable Talampas, Emilee D Primary Care Unavailable Roof DEVELOPMENT DIRECTOR, Cristian H Referring Unavailable Roof DEVELOPMENT DIRECTOR, Cristian Leonard Attending Unavailable Talampas, Emilee D Primary Care Unavailable Jackson Garza Consulting Unavailable Dieudonne Olmos Attending Unavailable Tomas Gerber Admitting Unavailable Adeli, Amir Consulting Unavailable Hinduja, Oralia Consulting Unavailable Miki, Ivon Consulting Unavailable Zha, Tiana Consulting Unavailable Kathrin, Low Consulting Unavailable Miquel, Park Consulting Unavailable Bittar, Anurag Consulting Unavailable Pk Anthony Consulting Unavailable Gagan Jones Consulting Unavailable Aparna Limon Consulting Unavailable Jean Pierre Eugene Consulting Unavailable Verónica Hinojosa Consulting Unavailable Vale Lyon Consulting Unavailable Rey Espinosa Consulting UnavailBrett Jane Consulting Unavailable Keith Mendez Consulting Unavailable Obinna Wells Consulting Unavailable Liza Hernandez Consulting Unavailable Bell Parisi Consulting Unavailable Tomas Gerber Consulting Unavailable Dieudonne Olmos Attending Unavailable Dieudonne Olmos Consulting Unavailable TALAMPAS, EMILEE D Primary Care Unavailable NORTON FAYE Referring Unavailable TALAMPAS, EMILEE D Primary Care Unavailable FAYE NORTON Attending Unavailable TALAMPAS, EMILEE D Primary Care Unavailable SAHARA BOATENG JR Attending Unavailable JOVANY BAHENA Referring Unavailable TALAMPAS, EMILEE D Primary Care Unavailable JOVANY BAHENA Attending Unavailable TALAMPAS, EMILEE D Primary Care Unavailable SARAHI ALFREDO Referring Unavailable TALAMPAS, EMILEE D Primary Care Unavailable DONNIE HERNANDEZ Attending Unavailable TALAMPAS, EMILEE D Primary Care Unavailable SARAHI ALFREDO Attending Unavailable ASPEN CEBALLOS Attending Unavailable TALAMPAS, EMILEE D Primary Care Unavailable TALAMPAS, EMILEE D Primary Care Unavailable TALAMPAS, EMILEE D Primary Care Unavailable ASPEN CEBALLOS Attending Unavailable TALAMPAS, EMILEE D Primary Care Unavailable KASIE LIMON Attending Unavailable VIVIEN MCINTOSH Referring Unavailable TALAMPAS, EMILEE D Primary Care Unavailable PRINCE WEST Referring Unavailable TALAMPAS, EMILEE D Primary Care Unavailable SARAHI ALFREDO Referring Unavailable TALAMPAS, EMILEE D Primary Care Unavailable JOVANY BAHENA Admitting Unavailable JOVANY BAHENA Attending Unavailable TALAMPAS, EMILEE D Referring Unavailable TALAMPAS, EMILEE D Primary Care Unavailable VIBHA MARIN Attending Unavailable JOVANY BAHENA Referring Unavailable RD WARD Attending Unavailable TALAMPAS, EMILEE D Primary Care Unavailable JOVANY BAHENA Referring Unavailable TALAMPAS, EMILEE D Primary Care Unavailable JOVANY BAHENA Referring Unavailable RD WARD Attending Unavailable TALAMPAS, EMILEE D Primary Care Unavailable JOVANY BAHENA Referring Unavailable TALAMPAS, EMILEE D Primary Care Unavailable RD WARD Attending Unavailable JOVANY BAHENA Referring Unavailable TALAMPAS, EMILEE D Primary Care Unavailable TALAMPAS, EMILEE D Referring Unavailable TALAMPAS, EMILEE D Primary Care Unavailable TALAMPAS, EMILEE D Referring Unavailable TALAMPAS, EMILEE D Primary Care Unavailable TALAMPAS, EMILEE D Referring Unavailable TALAMPAS, EMILEE D Primary Care Unavailable TALAMPAS, EMILEE D Primary Care Unavailable PRINCE WEST Referring Unavailable TALAMPAS, EMILEE D Primary Care Unavailable JOVANY BAHENA Referring Unavailable TALAMPAS, EMILEE D Primary Care Unavailable SAHARA BOATENG JR Attending Unavailable TALAMPAS, EMILEE D Primary Care Unavailable TALAMPAS, EMILEE D Primary Care Unavailable VIVIEN MCINTOSH Referring Unavailable TALAMPAS, EMILEE D Referring Unavailable TALAMPAS, EMILEE D Primary Care Unavailable TALAMPAS, EMILEE D Referring Unavailable TALAMPAS, EMILEE D Primary Care Unavailable TALAMPAS, EMILEE D Attending Unavailable TALAMPAS, EMILEE D Primary Care Unavailable TALAMPAS, EMILEE D Primary Care Unavailable SARAHI ALFREDO Referring Unavailable TALAMPAS, EMILEE D Attending Unavailable TALAMPAS, EMILEE D Primary Care Unavailable TALAMPAS, EMILEE D Primary Care Unavailable TALAMPAS, EMILEE D Attending Unavailable TALAMPAS, EMILEE D Primary Care Unavailable SARAHI ALFREDO Referring Unavailable TALAMPAS, EMILEE D Referring Unavailable TALAMPAS, EMILEE D Primary Care Unavailable TALAMPAS, EMILEE D Attending Unavailable TALAMPAS, EMILEE D Primary Care Unavailable TALAMPAS, EMILEE D Primary Care Unavailable JOVANY BAHENA Referring Unavailable TALAMPAS, EMILEE D Primary Care Unavailable PRINCE WEST Attending Unavailable LIMON, KASIE Referring Unavailable TALAMPAS, EMILEE D Primary Care Unavailable TALAMPAS, EMILEE D Primary Care Unavailable PRINCE WEST Referring Unavailable LIMONKASIE Referring Unavailable TALAMPAS, EMILEE D Primary Care Unavailable TALAMPAS, EMILEE D Primary Care Unavailable DONNIE HERNANDEZ Referring Unavailable Allergies Allergy Classification Reported Allergen(s) Allergy Type Date of Onset Reaction(s) Facility (1 source) hydroCHLOROthiazide Drug Allergy [facility] Medications Current Medications Medication Drug Class(es) Dates Sig (Normalized) Sig (Original) 8 hr acetaminophen 650 mg extended release oral tablet (20 sources) End: 09-21-2024 take 2 tablets by mouth every eight hours as needed acetaminophen (TYLENOL EXTRA STRENGTH) 500 mg tablet Take 1,000 mg by mouth every 8 hours as needed for pain. 09/21/2024 Discontinued acetaminophen (T YLENOL ARTHRITIS PAIN) 650 mg CR tablet Take 1,300 mg by mouth once daily. Active End: 06-26-2024 acetaminophen (TYLENOL 8 IGNACIO R ORAL) Take by mouth. 06/26/2024 Discontinued acetaminophen (T YLENOL 8 HOUR ORAL) Take by mouth. Active acetaminophen (T YLENOL 8 HOUR ORAL) Take by mouth. 0 Active Comment on above: Take by mouth. Take 1,000 mg by abdulaziz th every 8 hours as needed for pain. amLODIPine 10 mg oral tablet (20 sources) Dihydropyridine Calcium Channel Duc Start: 3 take 5 mg by mouth twice daily Amlodipine Active 5 MG PO TWICE A DAY July 02, 2022 1:30pm Start: 05-14-2022 End: 04-08-2023 take 1 tablet by mouth once daily amLODIPine (NORVASC) 10 mg tablet Take 10 mg by mouth once daily. 05/14/2022 04/08/2023 Discontinued Comment on above: Take 10 mg by mouth once daily. amoxicillin 875 mg / clavulanate 125 mg oral tablet (3 sources) Penicillin-class Antibacterial Start: 2 End: 2 take 1 tablet by mouth twice daily amoxicillin-clavu lanic acid (AUGMENTIN) 875-125 mg per tablet Indications: Sinus pressure Take 1 tablet by mouth twice daily for 7 days. 14 tablet 0 12/10/2021 12/17/2021 Active Comment on above: Take 1 tablet by abdulaziz th twice daily for 7 days. aspirin 81 mg delayed release oral tablet (20 sources) Platelet Aggregation Inhibitor, Nonsteroidal Anti-inflammatory Drug Start: 3 take 1 tablet by mouth once daily Aspirin (Adult Aspirin Regimen) 81 mg tablet,delayed release (DR/EC) Active 81 MG PO DAILY June 07, 2022 1:00am Start: 12-14-2014 End: 05-14-2022 take 1 tablet by mouth once daily aspirin 81 mg chewable tablet Take 81 mg by mouth once daily. 12/14/2014 Active Comment on above: Take 81 mg by mouth once daily. benzonatate 100 mg oral capsule (10 sources) Non-narcotic Antitussive Start: take 1 capsule by mouth every eight hours as needed benzonatate (TESSALON PERLE) 100 mg capsule Take 1 capsule by mouth three times a day as needed. 30 capsule 08/25/2024 Active biotin 2.5 mg oral capsule (20 sources) Start: take 2500 ug by mouth once daily Biotin Active 2500 MCG PO DAILY May 14, 2022 1:00am Start: 08-12-2015 End: 05-14-2022 take 300 ug by mouth once daily Biotin Discontinued 30 0 MCG PO DAILY August 12, 2015 12:00am May 14, 2022 3:11pm Start: 11-23-2006 Biotin (NAIL-E X) 2,500 mcg ORAL Tab Take 1,000 mcg by mouth once daily. 0 11/23/2006 Active Start: 11-23-2006 take 1 tablet by abdulaziz th once daily Biotin (NAIL-EX) 2,500 mcg ORAL Tab Take one(1) tablet daily. 0 11/23/2006 Active Comment on above: Take one(1) tablet d aily. BIPAP (20 sources) BIPAP Active BIPAP 24 hr buPROPion hydrochloride 150 mg extended release oral tablet (20 sources) Aminoketone Start: 02-10-2010 buPROPion XL (WELLBUTRIN XL) 150 mg 24 hr tablet Take one(1) tablet daily. 0 02/10/2010 Active Comment on above: Take one(1) tablet d aily. Ca-D3-Mag Fg-Zysi-Pbn-Jose-Bor (Calcium 600-D3 Plus (Mag-Zinc)) 600 mg calcium- 20 mcg-50 mg tablet (7 sources) Start: 05-14-2022 take 1 tablet by mouth once daily Ca-D3-Mag Ok-Opjq-Vxr-Jose- Bor (Calcium 600-D3 Plus (Mag-Zinc)) 600 mg calcium- 20 mcg-50 mg tablet Active 1 TABLET PO DAILY May 14, 2022 1:00am Start: 05-14-2022 take 1 tablet by abdulaziz th once daily Ca-D3-Mag Rj-Prvp-Vjf-Jose-Bor (Calcium 600-D3 Plus (Mag-Zinc)) 600 mg calcium- 20 mcg-50 mg tablet Active 1 TABLET PO DAILY May 14, 2022 12:00am Ca/D3/mag ox/zinc/commercial helicopter pilot/jose/b or (CALCIUM 600-D3 PLUS, MAG-ZINC, ORAL) (20 sources) Start: 11-26-2019 Ca/D3/mag ox/z inc/commercial helicopter pilot/jose/bor (CALCIUM 600-D3 PLUS, MAG-ZINC, ORAL) 11/26/2019 Active Start: 11-26-2019 Ca/D3/mag ox/z inc/commercial helicopter pilot/jose/bor (CALCIUM 600-D3 PLUS, MAG- ZINC, ORAL) cholecalciferol 0.025 mg oral tablet (20 sources) Vitamin D Start: 05-14-2022 take 1 tablet by mouth once daily Cholecalciferol (Vitamin D3) (Vitamin D3) 25 mcg (1,000 unit) tablet Active 2000 UNIT PO DAILY May 14, 2022 3:10pm Start: 12-14-2014 take 1 tablet by abdulaziz th once daily cholecalciferol (VITAMIN D3) 2,000 unit tablet Take 2,000 Units by mouth once daily. 12/14/2014 Active Start: 12-14-2014 End: 05-14-2022 take 1 tablet by mouth once daily Cholecalciferol (Vitamin D3) (Vitamin D3) 1,000 UNIT tablet Discontinued 1000 UNIT PO DAILY December 14, 2014 12:00am May 14, 2022 3:14pm Comment on above: Take 2,000 Units by mouth once daily. colestipol hydrochloride 1000 mg oral tablet (20 sources) Bile Acid Sequestrant Start: End: take 2 g by mouth once daily Colestipol Active 2 GM PO DAILY May 16, 2022 2:28pm Start: 09-05-2020 End: 08-06-2022 take 1-2 tablets by mouth once daily colestipol (COLESTID) 1 gram tablet Indications: Post-cholecystectomy syndrome , Loose stools Take 1-2 tablets by mouth once daily. As directed 60 tablet 2 08/06/2022 Active Comment on above: Take 1-2 tablets by mouth once daily. As directed Colostrum, Bovine (7 sources) Start: 12-14-2014 take 1000 mg by mouth twice daily Colostrum, Bovine Active 1000 MG PO TWICE A DAY December 14, 2014 12:00am Start: 12-14-2014 take 1000 mg by mout h twice daily Colostrum, Bovine Active 1000 MG PO TWICE A DAY December 13, 2014 11:00pm CYANOCOBALAMIN, VITAMIN B-12 , (VITAMIN B-12 ORAL) (20 sources) CYANOCOBALAMIN, VITAMIN B-12, (VITAMIN B-12 ORAL) Take by mouth. Active CYANOCOBALAMIN, VITAMIN B-12, (VITAMIN B-12 ORAL) Take by mouth. 0 Active Comment on above: Take by mouth. DAILY VITAMIN TAB (20 sources) Start: 7 DAILY VITAMIN TAB Take one(1) tablet daily. 0 06/17/2006 Active Comment on above: Take one(1) tablet d aily. diclofenac sodium 0.01 mg/mg topical gel (20 sources) Nonsteroidal Anti-inflammatory Drug Start: 3 apply 2 g topically every six hours as needed diclofenac (VOLTAREN ARTHRITIS PAIN) 1 % topical gel Apply 2 g to affected area four times daily as needed (wrist pain). 100 g 08/06/2022 Active Comment on above: Apply 2 g to affecte d area four times daily as needed (wrist pain). Fish Oil-Dha-Epa (7 sources) Start: 5 Fish Oil-Dha-Epa Active 1 EACH PO TWICE A DAY December 14, 2014 12:00am Start: 12-14-2014 Fish Oil-Dha-E pa Active 1 EACH PO TWICE A DAY December 13, 2014 11:00pm FLUoxetine 40 mg oral capsule (20 sources) Serotonin Reuptake Inhibitor Start: 06-18-2017 take 1 capsule by mouth once daily FLUoxetine HCl (PROZAC) 40 mg capsule Indications: Dysthymic disorder Take 1 capsule by mouth once daily. (Dr. Garcia) 06/18/2017 Active Start: 12-14-2014 End: 05-14-2022 take 40 mg by mouth once daily Fluoxetine Discontinued 40 MG PO DAILY December 14, 2014 12:00am May 14, 2022 3:10pm Comment on above: Take 1 capsule by mo uth once daily. (Dr. Garcia) gabapentin 400 mg oral capsule (20 sources) Anti-epileptic Agent Start: 08-19-2023 End: 09-24-2024 gabapentin (NEURONTIN) 400 mg capsule Indications: RLS (restless legs syndrome) , Fibromyalgia Take 2 capsule 60-90 minutes before bedtime. 180 capsule 1 06/26/2024 Active Start: 03-22-2023 End: 06-16-2023 gabapentin (NEURONTIN) 400 m g capsule Indications: RLS (restless legs syndrome) , Fibromyalgia Take 2 capsule 60-90 minutes before bedtime. 180 capsule 1 03/22/2023 Active Start: 11-29-2022 End: 11-26-2022 gabapentin (NEURONTIN) 400 m g capsule Indications: RLS (restless legs syndrome) , Fibromyalgia Take 2 capsule 60-90 minutes before bedtime. Do not start before November 29, 2022. 180 capsule 0 11/29/2022 11/26/2022 Discontinued Start: 11-29-2022 End: 11-26-2022 gabapentin (NEURONTIN) 400 m g capsule Indications: RLS (restless legs syndrome) , Fibromyalgia Take 2 capsule 60-90 minutes before bedtime. Do not start before November 29, 2022. 180 capsule 0 11/29/2022 11/26/2022 Discontinued Start: 11-29-2022 End: 11-26-2022 gabapentin (NEURONTIN) 400 m g capsule Indications: RLS (restless legs syndrome) , Fibromyalgia Take 2 capsule 60-90 minutes before bedtime. Do not start before November 29, 2022. 180 capsule 0 11/29/2022 11/26/2022 Discontinued Start: 11-29-2022 End: 11-26-2022 gabapentin (NEURONTIN) 400 m g capsule Indications: RLS (restless legs syndrome) , Fibromyalgia Take 2 capsule 60-90 minutes before bedtime. Do not start before November 29, 2022. 180 capsule 0 11/29/2022 11/26/2022 Discontinued Start: 08-29-2022 End: 03-22-2023 gabapentin (NEURONTIN) 400 m g capsule Indications: RLS (restless legs syndrome) , Fibromyalgia Take 2 capsule 60-90 minutes before bedtime. 180 capsule 0 11/26/2022 03/22/2023 Discontinued Start: 05-30-2022 End: 05-28-2022 gabapentin (NEURONTIN) 400 m g capsule Indications: RLS (restless legs syndrome) , Fibromyalgia Take 2 capsule 60-90 minutes before bedtime. Do not start before May 30, 2022. 180 capsule 0 05/30/2022 05/28/2022 Discontinued Start: 05-30-2022 End: 05-28-2022 gabapentin (NEURONTIN) 400 m g capsule Indications: RLS (restless legs syndrome) , Fibromyalgia Take 2 capsule 60-90 minutes before bedtime. Do not start before May 30, 2022. 180 capsule 0 05/30/2022 05/28/2022 Discontinued Start: 05-30-2022 End: 05-28-2022 gabapentin (NEURONTIN) 400 m g capsule Indications: RLS (restless legs syndrome) , Fibromyalgia Take 2 capsule 60-90 minutes before bedtime. Do not start before May 30, 2022. 180 capsule 0 05/30/2022 05/28/2022 Discontinued Start: 05-14-2022 take 800 mg by mouth at bedtim e Gabapentin Active 800 MG PO AT BEDTIME May 14, 2022 1:00am Start on 05/30/22 Start: 08-28-2021 End: 08-29-2022 gabapentin (NEURONTIN) 400 m g capsule Indications: RLS (restless legs syndrome) , Fibromyalgia Take 2 capsule 60-90 minutes before bedtime. 180 capsule 1 08/28/2021 02/26/2022 Discontinued Start: 05-29-2021 End: 08-29-2021 gabapentin (NEURONTIN) 400 m g capsule Indications: RLS (restless legs syndrome) , Fibromyalgia Take 1 capsule 60-90 minutes before bedtime. If no side effects and symptoms persist, can increase to 2 capsules 60-90 minutes before bedtime. 60 capsule 2 05/29/2021 08/28/2021 Discontinued Comment on above: Take 1 capsule 60-90 minutes before bedtime. If no side effects and symptoms persist, can increase to 2 capsules 60-90 minutes before bedtime. Take 2 capsule 60-90 minutes before bedtime. Take 2 capsule 60-90 minutes before bedtime. Do not start before May 30, 2022. Take 2 capsule 60-90 minutes before bedtime. Do not start before November 29, 2022. hydroCHLOROthiazide 25 mg oral tablet (20 sources) Thiazide Diuretic Start: 024 take 1 tablet by mouth once hydroCHLOROthiazide 25 mg tablet Take 1 tablet by mouth every afternoon. 06/01/2023 Active End: 06-12-2023 HYDROCHLOROTHIAZIDE ORAL Samuel e by mouth. 0 06/12/2023 Discontinued HYDROCHLOROTHIAZ FERNANDA ORAL Take by mouth. 0 Active Comment on above: Take by mouth. Take 1 tablet by abdulaziz every afternoon. hyperimmune colostrum, bovine 200 mg tab (20 sources) Start: 09-05-2020 take 2 tablets by mouth twice daily hyperimmune colostrum, bovine 200 mg tab Take 2 tablets by mouth twice daily. 09/05/2020 Active Start: 09-05-2020 take 2 tablets by mo [facility] twice daily hyperimmune colostrum, bovine 200 mg tab Take 2 tablets by mouth twice daily. 0 09/05/2020 Active Comment on above: Take 2 tablets by mo [facility] twice daily. levothyroxine sodium 0.025 mg oral tablet (20 sources) l-Thyroxine Start: 07-21-19 16 End: 05-18-19 take 1 tablet by mouth once daily levothyroxine (SYNTHROID) 25 mcg tablet Take 1 tablet by mouth once daily. 90 tablet 3 05/18/2024 Active Comment on above: Take 1 tablet by abdulaziz once daily. losartan potassium 100 mg oral tablet (20 sources) Angiotensin 2 Receptor Duc Start: 05-16-19 23 take 1 tablet by mouth once daily losartan (COZAAR) 100 mg tablet Take 100 mg by mouth once daily. 05/16/2022 Active Comment on above: Take 100 mg by mouth once daily. Multivitamin With Folic Acid (Thera) 1 TABLET tablet (7 sources) Start: 12-15-19 15 take 1 tablet by mouth once daily Multivitamin With Folic Acid (Thera) 1 TABLET tablet Active 1 TABLET PO DAILY December 14, 2014 12:00am Start: 12-14-2014 take 1 tablet by abdulaziz once daily Multivitamin With Folic Acid (Thera) 1 TABLET tablet Active 1 TABLET PO DAILY December 13, 2014 11:00pm nystatin [id number] unt/ml topical cream (5 sources) Polyene Antifungal Start: 09-25-2024 End: 10-09-2024 nystatin (MYCOSTATIN) cream Indications: Burning with urination Apply to affected area two times a day for 14 days. 30 g 09/25/2024 10/09/2024 Active oseltamivir 75 mg oral capsule (4 sources) Neuraminidase Inhibitor Start: 06-16-2022 take 1 capsule by mouth twice daily Oseltamivir (Tamiflu) 75 mg capsule Active 75 MG PO TWICE A DAY 10 June 16, 2022 1:00am polyethylene glycol 3350 910156 mg / potassium chloride 2970 mg / sodium bicarbonate 6740 mg / sodium chloride 5860 mg / sodium sulfate 45200 mg powder for oral solution (1 source) Osmotic Laxative Start: 06-26-2022 End: 06-26-2022 peg 3350-Electrolytes (GOLYTELY) 236-22.74-6.74 -5.86 gram suspension Take 4,000 mL by mouth one time only for 1 dose. 1 Each 0 06/26/2022 06/26/2022 Active Comment on above: Take 4,000 mL by abdulaziz th one time only for 1 dose. rosuvastatin calcium 5 mg oral tablet (20 sources) HMG-CoA Reductase Inhibitor Start: 08-06-2022 End: 11-28-2023 take 1 tablet by mouth once rosuvastatin (CRESTOR) 5 mg tablet Take 1 tablet by mouth every Saturday, Saturday, and Saturday. 90 tablet 1 11/29/2023 Active Comment on above: Take 1 tablet by abdulaziz th daily at bedtime. As directed sulfamethoxazole 800 mg / trimethoprim 160 mg oral tablet (2 sources) Dihydrofolate Reductase Inhibitor Antibacterial, Sulfonamide Antimicrobial Start: 02-21-2024 End: 03-01-2024 take 1 tablet by mouth twice daily sulfamethoxazole- trimethoprim (BACTRIM DS) 800-160 mg per tablet Indications: Urgency of urination Take 1 tablet by mouth two times a day for 5 days. 10 tablet 02/25/2024 03/01/2024 Active traZODone hydrochloride 50 mg oral tablet (20 sources) Serotonin Reuptake Inhibitor Start: 10-07-2024 End: 04-05-2025 take 0.5 tablet by mouth once daily at bedtime traZODone (DESYREL) 50 mg tablet Indications: Chronic insomnia Take 0.5 tablets by mouth daily at bedtime. 0 10/07/2024 04/05/2025 Active Start: 12-27-2023 End: 06-24-2024 take 0.5 tablet by mouth once daily at bedtime traZODone (DESYREL) 50 mg tablet Indications: Chronic insomnia Take 0.5 tablets by mouth daily at bedtime. 45 tablet 1 12/27/2023 06/24/2024 Start: 12-14-2014 End: 09-18-2023 take 1 tablet by mouth once daily at bedtime traZODone (DESYREL) 50 mg tablet Indications: Routine medical exam , Fibromyalgia Take 1 tablet by mouth daily at bedtime. 12/23/2015 03/22/2023 Discontinued Comment on above: Take 1 tablet by abdulaziz th daily at bedtime. Turmeric-Turmeric Ext-Pepper (3 sources) Start: 05-14-2022 take 1 capsule by mouth once daily Turmeric-Turmeric Ext-Pepper Active 1 CAP PO DAILY May 14, 2022 12:00am turmeric/turmeric ext/pepr ext (TURMERIC-TURMERIC EXT-PEPPER) 900-100-5 mg cap (20 sources) Start: 05-09-2019 turmeric/turmeric ext/pepr ext (TURMERIC-TURMERIC EXT-PEPPER) 900-100-5 mg cap 05/09/2019 Active Start: 05-09-2019 turmeric/turme shamika ext/pepr ext (TURMERIC-TURMERIC EXT-PEPPER) 900-100-5 mg cap ubidecarenone 50 mg chewable tablet (20 sources) Start: 12-14-2014 Coenzyme Q10 A ctive 50 MG PO DAILY December 13, 2014 11:00pm ubidecarenone Q- 10 (COENZYME Q-10) 10 mg cap Take 100 mg by mouth two times a day. Active take 5 capsules by mouth once da bertha ubidecarenone Q-10 (COENZYME Q-10) 10 mg cap Take 50 mg by mouth once daily. 0 Active Comment on above: Take 50 mg by mouth once daily. vitamin b12 0.5 mg sublingual tablet (7 sources) Vitamin B12 Start: 12-14-2014 Cyanocobalamin (Vitamin B-12) Active 500 MCG SL DAILY December 14, 2014 12:00am Completed/Discontinued Medications Medication Drug Class(es) Dates Sig (Normalized) Sig (Original) acetaminophen 325 mg / HYDROcodone bitartrate 5 mg oral tablet (7 sources) Opioid Agonist Start: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 Performed By: #### 5 8410-2 ####[facility] HOSPITALTERRYA [id number] [place] [address] [place] MCV (RBC) [Entitic vol] 93.7 fL Normal 80.0-100.0 [facility] Comment on above: Order Comment: Speci men Type: BLOOD SPECIMENOrdering Facility: [facility] Address: [address] [place] [address] Performed By: #### 5 8410-2 ####[facility] HOSPITALNCLIA [id number] [place] [address] [place] Nucleated RBC (Bld) [#/Vol] 10*3/uL Normal <0.01 [facility] Comment on above: Order Comment: Speci men Type: BLOOD SPECIMENOrdering Facility: [facility] Address: [address] [place] [address] Performed By: #### 5 8410-2 ####[facility] HOSPITALNCA [id number] [place] [address] [place] Platelet mean volume (Bld) [Entitic vol] 9.1 fL Normal 9.0-12.7 [facility] Comment on above: Order Comment: Speci men Type: BLOOD SPECIMENOrdering Facility: [facility] Address: [address] [place] [address] Performed By: #### 5 8410-2 ####[facility] [id number] [place] [address] [place] Platelets (Bld) [#/Vol] 292 10*3/uL Normal 150-400 [facility] Comment on above: Order Comment: Speci men Type: BLOOD SPECIMENOrdering Facility: [facility] Address: [address] [place] [address] Performed By: #### 5 8410-2 ####[facility] HOSPITALNCA [id number] [place] [address] [place] RBC (Bld) [#/Vol] 4.59 10*6/uL Normal 3.90-5.20 [facility] Comment on above: Order Comment: Speci men Type: BLOOD SPECIMENOrdering Facility: [facility] Address: [address] [place] [address] Performed By: #### 5 8410-2 ####[facility]OSPITALNCLIA [id number] [place] [address] [place] WBC (Bld) [#/Vol] 6.03 10*3/uL Normal 3.70-11.00 [facility] Comment on above: Order Comment: Specirma mccarthy Type: BLOOD SPECIMENOrdering Facility: [facility] Address: [address] [place] [address] Performed By: #### 5 8410-2 ####[facility] [id number] [place] [address] [place] Creatinine + eGFR Pnl SerPlB ldon 10-29-2024 Creatinine and Glomerular filtration rate.predicted panel (S/P/Bld) 96 mL/min/1.73m??? Normal >=60 [facility] Comment on above: Order Comment: Nayla mccarthy Type: BLOOD SPECIMENOrdering Facility: [facility] Address: [address] [place] [address] Result Comment: Angela mated Glomerular Filtration Rate (eGFR) is calculated using the 2020 CKD-EPI creatinine equation. This equation utilizes serum creatinine, sex, and age as parameters. The creatinine assay has traceable calibration to isotope dilution-mass spectrometry. Refer to KDIGO guidelines for clinical interpretation. In patients with unstable renal function, e.g. those with acute kidney injury, the eGFR may not accurately reflect actual GFR. Performed By: #### 1 742-6, 1928, 92434-9 ####[facility] [id number] [place] [address] [place] [facility] Creatinine and Glomerular fi ltration rate.predicted panel (S/P/Bld)on 10-29-2024 Creatinine [Mass/Vol] 0.61 mg/dL Normal 0.58-0.96 [facility] Comment on above: Order Comment: Nayla mccarthy Type: BLOOD SPECIMENOrdering Facility: [facility] Address: [address] [place] [address] Performed By: #### 1 742-6, 1920-8, 48740-0 ####[facility] [id number] [place] [address] [place] ALT SerPl-cCncon 10-01-2024 ALT [Catalytic activity/Vol] 18 U/L Normal 7-38 [facility] Comment on above: Order Comment: Speci men Type: BLOOD SPECIMENOrdering Facility: [facility] Address: [address] [place] [address] Performed By: #### 1 920-8, 1742-6, 68969-8 ####[facility] NATALIERJNCLIA [id number] [place] [address] [place] AST SerPl-cCncon 10-01-2024 AST [Catalytic activity/Vol] 19 U/L Normal 13-35 [facility] Comment on above: Order Comment: Speci men Type: BLOOD SPECIMENOrdering Facility: [facility] Address: [address] [place] [address] Performed By: #### 1 920-8, 1742-6, 80844-4 ####[facility]PITALNCLIA [id number] [place] [address] [place] CBC panel Auto (Bld)on 10-01 Erythrocyte distribution width (RBC) [Ratio] 14.0 % Normal 11.5-15.0 [facility] Comment on above: Order Comment: Speci men Type: BLOOD SPECIMENOrdering Facility: [facility] Address: [address] [place] [address] Performed By: #### 5 8410-2 ####[facility]OSPITALNCLIA [id number] [place] [address] [place] Hematocrit (Bld) [Volume fraction] 40.4 % Normal 36.0-46.0 [facility] Comment on above: Order Comment: Speci men Type: BLOOD SPECIMENOrdering Facility: [facility] Address: [address] [place] [address] Performed By: #### 5 8410-2 ####[facility]ENTERPILARWNCLIA [id number] [place] [address] [place] Hemoglobin (Bld) [Mass/Vol] 13.6 g/dL Normal 11.5-15.5 [facility] Comment on above: Order Comment: Speci men Type: BLOOD SPECIMENOrdering Facility: [facility] Address: [address] [place] [address] Performed By: #### 5 8410-2 ####[facility] OHIOLIA [id number] [place] [address] [place] MCH (RBC) [Entitic mass] 31.3 pg Normal 26.0-34.0 [facility] Comment on above: Order Comment: Speci men Type: BLOOD SPECIMENOrdering Facility: [facility] Address: [address] [place] [address] Performed By: #### 5 8410-2 ####[facility] [id number] [place] [address] [place] MCHC (RBC) [Mass/Vol] 33.7 g/dL Normal 30.5-36.0 [facility] Comment on above: Order Comment: Speci men Type: BLOOD SPECIMENOrdering Facility: [facility] Address: [address] [place] [address] Performed By: #### 5 8410-2 ####[facility] HOSPITALNCLI [id number] [place] [address] [place] MCV (RBC) [Entitic vol] 92.9 fL Normal 80.0-100.0 [facility] Comment on above: Order Comment: Speci men Type: BLOOD SPECIMENOrdering Facility: [facility] Address: [address] [place] [address] Performed By: #### 5 8410-2 ####[facility] HOSPITALNCLI [id number] [place] [address] [place] Nucleated RBC (Bld) [#/Vol] 10*3/uL Normal <0.01 [facility] Comment on above: Order Comment: Speci men Type: BLOOD SPECIMENOrdering Facility: [facility] Address: [address] [place] [address] Performed By: #### 5 8410-2 ####[facility] COLIN JAKENCLU [id number] [place] [address] [place] Platelet mean volume (Bld) [Entitic vol] 9.4 fL Normal 9.0-12.7 [facility] Comment on above: Order Comment: Speci men Type: BLOOD SPECIMENOrdering Facility: [facility] Address: [address] [place] [address] Performed By: #### 5 8410-2 ####[facility] HOSPITALNCLU [id number] [place] [address] [place] Platelets (Bld) [#/Vol] 331 10*3/uL Normal 150-400 [facility] Comment on above: Order Comment: Speci men Type: BLOOD SPECIMENOrdering Facility: [facility] Address: [address] [place] [address] Performed By: #### 5 8410-2 ####[facility] HOSPITALNCLIA [id number] [place] [address] [place] RBC (Bld) [#/Vol] 4.35 10*6/uL Normal 3.90-5.20 [facility] Comment on above: Order Comment: Speci men Type: BLOOD SPECIMENOrdering Facility: [facility] Address: [address] [place] [address] Performed By: #### 5 8410-2 ####[facility]OSPITALNCLIA [id number] [place] [address] [place] WBC (Bld) [#/Vol] 5.99 10*3/uL Normal 3.70-11.00 [facility] Comment on above: Order Comment: Speci men Type: BLOOD SPECIMENOrdering Facility: [facility] Address: [facility] [place] [address] Performed By: #### 5 8410-2 ####[facility]ITALNCASH[facility] [id number] [place] [address] [place] Creatinine + eGFR Pnl SerPlB ldon 10-01-2024 Creatinine and Glomerular filtration rate.predicted panel (S/P/Bld) 97 mL/min/1.73m??? Normal >=60 [facility] Comment on above: Order Comment: Speci men Type: BLOOD SPECIMENOrdering Facility: [facility] Address: [address] [place] [address] Result Comment: Angela mated Glomerular Filtration Rate (eGFR) is calculated using the 2020 CKD-EPI creatinine equation. This equation utilizes serum creatinine, sex, and age as parameters. The creatinine assay has traceable calibration to isotope dilution-mass spectrometry. Refer to KDIGO guidelines for clinical interpretation. In patients with unstable renal function, e.g. those with acute kidney injury, the eGFR may not accurately reflect actual GFR. Performed By: #### 1 920-8, 1742-6, 90503-2 ####[facility] HOSPITALWNCLIA [id number] [place] [address] [place] [facility] Creatinine and Glomerular fi ltration rate.predicted panel (S/P/Bld)on 10-01-2024 Creatinine [Mass/Vol] 0.58 mg/dL Normal 0.58-0.96 [facility] Comment on above: Order Comment: Speci men Type: BLOOD SPECIMENOrdering Facility: [facility] Address: [address] [place] [address] Performed By: #### 1 920-8, 1742-6, 80454-7 ####[facility] HOSPITALNCLIA [id number] [place] [address] [place] CNCNPATEDon 09-28-2024 CNCNPATED Normal [facility] BACTERIAL VAGINOSIS NAATon 0 09-25-2024 Lactobacillus crispatus+gasseri+zhou ii + Gardnerella vaginalis + Atopobium vaginae rRNA MORALES+probe Ql (Vag fld) Not detected Normal Not detected [facility] Comment on above: Order Comment: Speci men Type: SWABOrdering Facility: [facility] Address: [address] [place] [address] Performed By: #### B VAMP, CVTV ####[facility] LABCLIA [id number] [place] [address] [place] Bacteria Ur Culton 5 Bacteria identified Cx Nom (U) ORGANISM ID: 1 10,000 -<50,000 CFU/ml Normal urogenital kiara Normal [facility] Comment on above: Performed By: #### 6 30-4 ####[facility] LABCLIA [id number] [place] [address] [place] DAVID/TRICHOMONAS NAATon 0 09-25-2024 C. glabrata RNA MORALES+probe Ql (Vag fld) Not detected Normal Not detected [facility] Comment on above: Order Comment: Speci men Type: SWABOrdering Facility: [facility] Address: [address] [place] [address] Performed By: #### B VAMP, CVTV ####[facility] LABCLIA [id number] [place] [address] [place] David sp DNA MORALES+probe Ql (Vag fld) Not detected Normal Not detected [facility] Comment on above: Order Comment: Speci men Type: SWABOrdering Facility: [facility] Address: [address] [place] [address] Result Comment: The David species group target includes C. albicans, C. tropicalis, C. parapsilosis, and C. dubliniensis. Performed By: #### B VAMP, CVTV ####[facility] LABCLIA [id number] [place] [address] [place] T. vaginalis DNA MORALES+probe Ql (Unsp spec) Not detected Normal Not detected [facility] Comment on above: Order Comment: Speci men Type: SWABOrdering Facility: [facility] Address: [address] [place] [address] Performed By: #### B SU ARNOLD ####[facility] LABCLIA [id number] [facility] [id number] [place] [address] [place] CNOVon 09-25-2024 CNOV Normal [facility] UA DIP, URINE (POC)on 2024 BILIRUBIN UA (POCT) Negative Negative [facility] CLARITY UA (POCT) Turbid [facility] COLOR UA (POCT) Dark yellow [facility] GLUCOSE UA (POCT) Negative Negative mg/dL [facility] Hemoglobin Ql (U) Negative Negative [facility] KETONE UA (POCT) Negative Negative mg/dL [facility] LEUKOCYTES UA (POCT) Negative Negative [facility] NITRITE UA (POCT) Negative Negative [facility] PH UA (POCT) 5.5 4.5 - 8.0 [facility] Protein Ql (U) Negative Negative mg/dL [facility] SPECIFIC GRAVITY UA (POCT) 1.01 1.005 - 1.030 [facility] UROBILINOGEN UA (POCT) 0.2 Kristy l E.U./dL [facility] Location:[address] POINT OF CARE [facility] XR CHEST 2V FRONTAL/LATon XR CHEST 2V FRONTAL/LAT Normal [facility] ALT SerPl-cCncon 09-03-2024 ALT [Catalytic activity/Vol] 22 U/L Normal 7-38 [facility] Comment on above: Order Comment: Speci men Type: BLOOD SPECIMENOrdering Facility: [facility] Address: [facility] [address] Performed By: #### 1 920-8, 1742-6, 18284-4 ####[facility] [id number] [place] [address] [place] AST SerPl-cCncon 09-03-2024 AST [Catalytic activity/Vol] 24 U/L Normal 13-35 [facility] Comment on above: Order Comment: Speci men Type: BLOOD SPECIMENOrdering Facility: [facility] Address: [address] [place] [address] Performed By: #### 1 920-8, 1742-6, 13690-0 ####[facility] NATALEIAPRIL [id number] [address] [place] CBC panel Auto (Bld)on 09-03 Erythrocyte distribution width (RBC) [Ratio] 12.9 % Normal 11.5-15.0 [facility] Comment on above: Order Comment: Speci men Type: BLOOD SPECIMENOrdering Facility: [facility] Address: [address] [place] [address] Performed By: #### 5 8410-2 ####[facility]PITALZENIAASHLEY [facility] [id number] [address] [place] Hematocrit (Bld) [Volume fraction] 41.6 % Normal 36.0-46.0 [facility] Comment on above: Order Comment: Speci men Type: BLOOD SPECIMENOrdering Facility: [facility] Address: [address] [place] [address] Performed By: #### 5 8410-2 ####[facility]PITALTERRYA [id number] [address] [place] Hemoglobin (Bld) [Mass/Vol] 14.0 g/dL Normal 11.5-15.5 [facility] Comment on above: Order Comment: Speci men Type: BLOOD SPECIMENOrdering Facility: [facility] Address: [address] [place] [address] Performed By: #### 5 8410-2 ####[facility] HOSPITALWNCLIA [id number] [address] [place] MCH (RBC) [Entitic mass] 30.7 pg Normal 26.0-34.0 [facility] Comment on above: Order Comment: Speci men Type: BLOOD SPECIMENOrdering Facility: [facility] Address: [address] [place] [address] Performed By: #### 5 8410-2 ####[facility] [id number] [place] [address] [place] MCHC (RBC) [Mass/Vol] 33.7 g/dL Normal 30.5-36.0 [facility] Comment on above: Order Comment: Speci men Type: BLOOD SPECIMENOrdering Facility: [facility] Address: [address] [place], [place] [address] Performed By: #### 5 8410-2 ####[facility] [id number] [place] [address] [place] MCV (RBC) [Entitic vol] 91.2 fL Normal 80.0-100.0 [facility] Comment on above: Order Comment: Speci men Type: BLOOD SPECIMENOrdering Facility: [facility] Address: [address] [place] [address] Performed By: #### 5 8410-2 ####[facility] [id number] [place] [address] [place] Nucleated RBC (Bld) [#/Vol] 10*3/uL Normal <0.01 [facility] Comment on above: Order Comment: Speci men Type: BLOOD SPECIMENOrdering Facility: [facility] Address: [address] [place], [place] [address] Performed By: #### 5 8410-2 ####[facility] [id number] [place] [address] [place] Platelet mean volume (Bld) [Entitic vol] 8.6 fL Low 9.0-12.7 [facility] Comment on above: Order Comment: Speci men Type: BLOOD SPECIMENOrdering Facility: [facility] Address: [address] [place] [address] Performed By: #### 5 8410-2 ####[facility] JAKENCLIAA [id number] [place] [address] [place] Platelets (Bld) [#/Vol] 346 10*3/uL Normal 150-400 [facility] Comment on above: Order Comment: Speci men Type: BLOOD SPECIMENOrdering Facility: [facility] Address: [address] [place] [address] Performed By: #### 5 8410-2 ####[facility] HOSPITALNCLIAA [id number] [place] [address] [place] RBC (Bld) [#/Vol] 4.56 10*6/uL Normal 3.90-5.20 [facility] Comment on above: Order Comment: Speci men Type: BLOOD SPECIMENOrdering Facility: [facility] Address: [address] [place] [address] Performed By: #### 5 8410-2 ####[facility]OSPITALNCLIAA [id number] [place] [address] [place] WBC (Bld) [#/Vol] 6.93 10*3/uL Normal 3.70-11.00 [facility] Comment on above: Order Comment: Speci men Type: BLOOD SPECIMENOrdering Facility: [facility] Address: [address] [place] [address] Performed By: #### 5 8410-2 ####[facility]PITALNCLIA [id number] [place] [address] [place] Creatinine + eGFR Pnl SerPlB ldon 09-03-2024 Creatinine and Glomerular filtration rate.predicted panel (S/P/Bld) 93 mL/min/1.73m??? Normal >=60 [facility] Comment on above: Order Comment: Speci men Type: BLOOD SPECIMENOrdering Facility: [facility] Address: [address] [place] [address] Result Comment: Angela mated Glomerular Filtration Rate (eGFR) is calculated using the 2020 CKD-EPI creatinine equation. This equation utilizes serum creatinine, sex, and age as parameters. The creatinine assay has traceable calibration to isotope dilution-mass spectrometry. Refer to KDIGO guidelines for clinical interpretation. In patients with unstable renal function, e.g. those with acute kidney injury, the eGFR may not accurately reflect actual GFR. Performed By: #### 1 920-8, 1742-6, 73399-0 ####[facility] [id number] [place] [address] [place] Creatinine and Glomerular fi ltration rate.predicted panel (S/P/Bld)on 09-03-2024 Creatinine [Mass/Vol] 0.70 mg/dL Normal 0.58-0.96 [facility] Comment on above: Order Comment: Nayla mccarthy Type: BLOOD SPECIMENOrdering Facility: [facility] Address: [address] [place] [address] Performed By: #### 1 920-8, 1742-6, 20892-1 ####[facility] [id number] [place] [address] [place] T3Free SerPl-mCncon 09-04-19 25 Free T3 [Mass/Vol] 2.6 pg/mL Normal 2.3-4.1 [facility] Comment on above: Order Comment: Nayla [facility] Type: BLOOD SPECIMENOrdering Facility: [facility] Address: [address] [place] [address] Performed By: #### 3 051-0, 3016-3, 3024-7 ####[facility] LABCLIA [id number] [place] [address] [place] T4 Free SerPl-mCncon 025 Free T4 [Mass/Vol] 1.4 ng/dL Normal 0.9-1.7 [facility] Comment on above: Order Comment: Speci men Type: BLOOD SPECIMENOrdering Facility: [facility] Address: [address] [place], [place] [address] Performed By: #### 3 051-0, 3016-3, 3024-7 ####[facility] LABCLIA [id number] [place] [id number] [facility] TSH SerPl-aCncon 09-03-2024 TSH Qn 1.010 m[IU]/L Normal 0.270-4.200 [facility] Comment on above: Order Comment: Speci men Type: BLOOD SPECIMENOrdering Facility: [facility] Address: [address] [place] [address] Performed By: #### 3 051-0, 3016-3, 3024-7 ####[facility] LABCLIA [id number] [address] OF [facility] Cardiology Visit Reporton Cardiology Visit Report [facility] [address] [place] [address] OFFICE VISIT Date of Service: 08/31/24 MR#: [id number] Acct: [id number] Name: PRISCILLA RAMOS) Rep #: [id number] : 1955 Provider: HEATH mcdonald Age/Sex: 69/F Location: [facility] Status: Signed HPI HPI History of Present Illness Details: This is a 69-year-old lady who presents today for cardiovascular follow-up visit. She has a history of hypertension, obstructive sleep apnea and hypothyroidism. She has been complaining of shortness of breath over the last couple of months as well as chest discomfort in the last 2 weeks. She was scheduled to see us for an appointment but she thought that she was having more midsternal chest pressure and heaviness and call the office and she was told to go to the emergency room. On presentation to the emergency room she was noted to have an elevated blood pressure of 185 systolic normal EKG normal blood work and normal high-sensitivity troponin. She was put on 10 mg of amlodipine and asked to follow-up with us in the office. She says that her blood pressure has been slightly better since going to the emergency room she continues to have some shortness of breath with exertion. She has had no dizziness or diaphoresis no near syncope or syncope. She had previously had an echocardiogram performed in January 2022 at [facility] which demonstrated an ejection fraction of 65% ???5. Right ventricle was normal. Her lipid profile demonstrated total cholesterol 193 HDL of 67 LDL of 109 from August 2021. To evaluate further, he underwent a stress test on 06/01/2022 that was abnormal. She proceeded with a heart catheterization on 06/11/2022 that showed mild coronary artery disease of LAD and diagonal. Medical therapy was recommended. From a cardiac standpoint, the patient is doing well. She does use a cane to help with ambulation. She does have occasional palpitation. She believes this is stress related, and describes this as a fluttering sensation. She denies chest pain, pressure or heaviness. She does have SOB with exertion. She denies Orthopnea, and PND. She does not have bleeding issues; no blood in urine, stool, or nosebleeds. She denies any decrease in energy level, myalgias, or claudication. She does not have edema, or sudden weight gain. She denies lightheadedness, dizziness, syncopal or near syncopal episodes, and headaches. Intake Vital Signs 08/29/23 15:42 08/31/24 07:32 Height 5 ft 5 in 5 ft 5 in Weight: 271 lb BMI 45.1 BP 151/89 H Blood Pressure Location Lt brachial Position Sitting Respiration 18 Pulse 82 Pulse Source Monitor Pulse Oximetry (%) 92 Intake Visit Reasons: 1 Y FU Collar Cutter Required: No Is patient in pain?: No Allergies hydrochlorothiazide Adverse Reaction (Verified 08/31/24 15:46) hyponatremia with 25 mg dose Medications ???Medication ???Instructions ???Recorded ???Confirmed ???Type cyanocobalamin (vitamin B-12) 500 500 mcg sublingual DAILY 12/14/14 08/31/24 History mcg sublingual tablet multivitamin with folic acid 400 1 tab PO DAILY 12/14/14 08/31/24 H istory mcg tablet (Thera) trazodone 50 mg tablet 25 mg PO QHS 12/14/14 08/31/24 His tory levothyroxine 25 mcg tablet 25 mcg PO DAILY 07/21/15 08/31/24 History biotin 2,500 mcg capsule 2,500 mcg PO DAILY 05/14/22 History calcium 600 mg-D3 20 mcg-magnesium 1 tab PO DAILY 05/14/22 08/31/24 History 50 ko-Fv-wozasm-gonzalo-b oron tablet (Calcium 600-D3 Plus (mag-zinc)) gabapentin 400 mg capsule 800 mg PO QHS 05/14/22 08/31/24 Hi story aspirin 81 mg tablet,delayed 81 mg PO DAILY 06/07/22 08/31/24 H istory release (Adult Aspirin Regimen) coenzyme Q10 50 mg capsule (Co 50 mg PO DAILY 12/31/22 08/31/24 H istory Q-10) rosuvastatin 5 mg tablet 5 mg PO .3 x week 12/31/22 5 History losartan 100 mg tablet 100 mg PO QHS bp 06/30/24 08/31/24 History hydrochlorothiazide 12.5 mg tablet 12.5 mg PO QAM 07/14/24 08/31/24 History bupropion HCl 150 mg 24 hr tablet, 150 mg PO DAILY #90 tabs 5 08/31/24 Rx extended release fluoxetine 40 mg capsule 40 mg PO DAILY #90 caps 07/16/24 0 08/31/24 Rx sulfasalazine 500 mg tablet 0.5 g PO QDAY 07/16/24 08/31/24 Hi story cholecalciferol (vitamin D3) 25 1,000 unit PO QHS 08/31/24 5 History mcg (1,000 unit) tablet (Vitamin D3) turmeric root extract 500 mg 500 mg PO QDAY 08/31/24 08/31/24 H istory capsule Have you fallen in the past year?: No [facility] Medical History Tiffany's disease Persistent depressive disorder Depression Osteoporosis BiPAP (biphasic positive airway pressure) dependence Chest pain Abnormal stress test Arthritis Esse (more content not included)... Normal [facility] CNOVon 08-25-2024 CNOV Normal [facility] CNOVon 08-21-2024 CNOV Normal [facility] XR CHEST 2V FRONTAL/LATon XR CHEST 2V FRONTAL/LAT Normal [facility] XR Chest PA and Lateralon IMPRESSION: Fullness in the RIGHT hilum. Although this could represent infiltrate close follow-up recommended to evaluate for complete resolution. If this does not resolve then CT chest would be recommended Equipment Washer: AMIE Transcribe Date/Time: Aug 21 2024 4:41P Dictated by : NICOLÁS VIVAS DO This examination was interpreted and the report reviewed and electronically signed by: NICOLÁS VIVAS DO on Aug 21 2024 4:43PM [facility] DIVISION OF RADIOLOGY * * *Final Report* * * DATE OF EXAM: Aug 21 2024 4:37PM WOX [id number] - XR CHEST 2V FRONTAL/LAT / PROCEDURE REASON: Acute cough * * * * Physician Interpretation * * * * EXAMINATION: CHEST RADIOGRAPH (2 VIEW FRONTAL & LATERAL) CLINICAL HISTORY: Acute cough MQ: XC2_6 EXAM DATE/TIME: 08/21/2024 4:37 PM COMPARISON: 02/05/2022 RESULT: Lines, tubes, and devices: None. Lungs and pleura: There is fullness in the RIGHT hilum. This may represent infiltrate. However an underlying mass cannot be excluded. Short-term follow-up recommended to evaluate for resolution. Does not completely resolve then CT chest recommended Cardiomediastinal silhouette: Normal cardiomediastinal silhouette. Bones and soft tissues: Unremarkable. DIVISION OF RADIOLOGY Provider, Poonam Gemma Talavera - 08/21/2024 * * *Final Report* * * DATE OF EXAM: Aug 21 2024 4:37PM WOX [id number] - XR CHEST 2V FRONTAL/LAT / PROCEDURE REASON: Acute cough * * * * Physician Interpretation * * * * EXAMINATION: CHEST RADIOGRAPH (2 VIEW FRONTAL & LATERAL) CLINICAL HISTORY: Acute cough MQ: XC2_6 EXAM DATE/TIME: 08/21/2024 4:37 PM COMPARISON: 02/05/2022 RESULT: Lines, tubes, and devices: None. Lungs and pleura: There is fullness in the RIGHT hilum. This may represent infiltrate. However an underlying mass cannot be excluded. Short-term follow-up recommended to evaluate for resolution. Does not completely resolve then CT chest recommended Cardiomediastinal silhouette: Normal cardiomediastinal silhouette. Bones and soft tissues: Unremarkable. IMPRESSION IMPRESSION: Fullness in the RIGHT hilum. Although this could represent infiltrate close follow-up recommended to evaluate for complete resolution. If this does not resolve then CT chest would be recommended Equipment Washer: AMIE Transcribe Date/Time: Aug 21 2024 4:41P Dictated by : NICOLÁS VIVAS DO This examination was interpreted and the report reviewed and electronically signed by: NICOLÁS VIVAS DO on Aug 21 2024 4:43PM EST [facility] Radiology Study observation (narrative) [facility] XR Chest PA and LateralOrder ed By: Luisa Provider on 08-21-2024 [facility] Bacteria Ur Culton Bacteria identified Cx Nom (U) CULTURE, URINE: Mixed microbiota, including predominantly: ORGANISM ID: 1 10,000 -<50,000 CFU/ml Streptococcus anginosus No susceptibility testing done. Normal [facility] Comment on above: Performed By: #### 6 30-4 ####[facility] LABCLIA [id number] [place] [address] [place] CNOVon 08-14-2024 CNOV Normal [facility] PAP TESTon 08-14-2024 ADEQUACY Normal [facility] Comment on above: Order Comment: Speci men Type: FLUID SPECIMENOrdering Facility: [facility] Address: [address] [place] [address] Result Comment: Sati sfactory for interpretation.No endocervical component Performed By: #### L [id number] ####[facility] LABCLIA [id number] [place] [address] [place] CASE REPORT Normal [facility] Comment on above: Order Comment: Speci men Type: FLUID SPECIMENOrdering Facility: [facility] Address: [address] [place] [address] Result Comment: Gyne cologic Cytology Report Case: [id number] Provider: Donnie Hernandez APRN.WEIGHT TRAINING INSTRUCTOR Collected: 08/14/2024 10:35 AMOrdering Location: OB/Gynecology Received: 08/14/2024 11:56 AMFirst Screen: Sonia Vega CT, ASCPSpecimen: Pap Test, ThinPrep, Cervix Performed By: #### L [id number] ####[facility] LABCLIA [id number] [place] [address] [place] CLINICAL HISTORY, CYTOLOGY, SHANK STAPLER Post Menopausal Normal [facility] Comment on above: Order Comment: Speci men Type: FLUID SPECIMENOrdering Facility: [facility] Address: [address] [place] [address] Performed By: #### L [id number] ####[facility] LABCLIA [id number] [place] [id number] [place] FINAL PERFORMING LAB Normal [facility] Comment on above: Order Comment: Speci men Type: FLUID SPECIMENOrdering Facility: [facility] Address: [address] [place] [address] Result Comment: Tech nical component, control room technician screening performed at: [facility], [address] [place], [place] [id number] CLIA: [id number] interpretation performed at: [facility], [address] [place], [place] [address] CLIA# [id number] Director: Eris Carrillo MD Performed By: #### L [id number] ####[facility] LABCLIA [id number] [place] [id number] [place] INTERPRETATION, CYTOLOGY, SHANK STAPLER Normal [facility] Comment on above: Order Comment: Speci men Type: FLUID SPECIMENOrdering Facility: [facility] Address: [address] [place] [address] Result Comment: Nega tive for intraepithelial lesion or malignancy. at 1453 EDT Performed By: #### L [id number] ####[facility] LABCLIA [id number] [facility] [id number] [address] [place] PAP DISCLAIMER COMMENT The Pap Smear is a screening test for cervical cancer. False negative results occur with all screening tests, emphasizing the need for rescreening at recommended intervals, and clinical correlation. Normal [facility] Comment on above: Order Comment: Speci men Type: FLUID SPECIMENOrdering Facility: [facility] Address: [address] [place] [address] Performed By: #### L [id number] ####[facility] LABCLIA [id number] [facility] [address] [place] [address] [place] PAP SAP [employer]NA DEVELOPER COMMENT Normal [facility] Comment on above: Order Comment: Speci men Type: FLUID SPECIMENOrdering Facility: [facility] Address: [address] [place] [address] Performed By: #### L [id number] ####[facility] LABCLIA [id number] [facility] [address] [place] [address] [place] Urinalysis complete panel (U )on 08-14-2024 Bacteria LM.HPF (Urine sed) [#/Area] Negative Normal Negative [facility] Comment on above: Order Comment: Speci men Type: URINE SPECIMENOrdering Facility: [facility] Address: [address] [place] [address] Performed By: #### 2 4356-8 ####[facility] LABCLIA [id number] [facility] [address] [place] [address] [place] Bilirubin Ql (U) Negative Normal Negative [facility] Comment on above: Order Comment: Speci men Type: URINE SPECIMENOrdering Facility: [facility] Address: [address] [place], [place] [address] Performed By: #### 2 4356-8 ####[facility] LABCLIA [id number] [facility] [place] [address] [place] Clarity (Unsp spec) Clear Normal Clear Yamil [facility] Comment on above: Order Comment: Speci men Type: URINE SPECIMENOrdering Facility: [facility] Address: [address] [place] [address] Performed By: #### 2 4356-8 ####[facility] LABCLIA [id number] [place] [address] [place] Color (U) Yellow Normal Yellow [facility] Comment on above: Order Comment: Speci men Type: URINE SPECIMENOrdering Facility: [facility] Address: [address] [place] [address] Performed By: #### 2 4356-8 ####[facility] LABCLIA [id number] [place] [address] [place] Epithelial cells LM.HPF (Urine sed) [#/Area] Few Normal [facility] Comment on above: Order Comment: Speci men Type: URINE SPECIMENOrdering Facility: [facility] Address: [address] [place] [address] Performed By: #### 2 4356-8 ####[facility] LABCLIA [id number] [place] [address] [place] Glucose Test strip (U) [Mass/Vol] Negative Normal Negative [facility] Comment on above: Order Comment: Speci men Type: URINE SPECIMENOrdering Facility: [facility] Address: [address] [place] [address] Performed By: #### 2 4356-8 ####[facility] LABCLIA [id number] [place] [address] [place] Hemoglobin Ql (U) Trace Abnormal Negative [facility] Comment on above: Order Comment: Speci men Type: URINE SPECIMENOrdering Facility: [facility] Address: [address] [place] [address] Performed By: #### 2 4356-8 ####[facility] LABCLIA [id number] [address] [place] [address] [place] Hyaline casts (Urine sed) [#/Area] 0 /[LPF] Normal 0 /LPF [facility] Comment on above: Order Comment: Speci men Type: URINE SPECIMENOrdering Facility: [facility] Address: [address] [place] [address] Performed By: #### 2 4356-8 ####[facility] LABCLIA [id number] [address] [place] [address] [place] Ketones Ql (U) Negative Normal Negative [facility] Comment on above: Order Comment: Speci men Type: URINE SPECIMENOrdering Facility: [facility] Address: [address] [place] [address] Performed By: #### 2 4356-8 ####[facility] LABCLIA [id number] [address], [place] [address] [place] Leukocyte esterase Test strip Ql (U) 2+ Abnormal Negative [facility] Comment on above: Order Comment: Speci men Type: URINE SPECIMENOrdering Facility: [facility] Address: [address] [place] [address] Performed By: #### 2 4356-8 ####[facility] LABCLIA [id number] [address], [place] [address] [place] Nitrite Ql (U) Negative Normal Negative [facility] Comment on above: Order Comment: Speci men Type: URINE SPECIMENOrdering Facility: [facility] Address: [address] [place] [address] Performed By: #### 2 4356-8 ####[facility] LABCLIA [id number] [address], [facility] [place] pH (U) 6.5 [pH] Normal <8.5 [facility] Comment on above: Order Comment: Speci men Type: URINE SPECIMENOrdering Facility: [facility] Address: [address] [place] [address] Performed By: #### 2 4356-8 ####[facility] LABIA [id number] [place] [address] [place] Protein (U) [Mass/Vol] Negative Normal Negative Cl [facility] Comment on above: Order Comment: Speci men Type: URINE SPECIMENOrdering Facility: [facility] Address: [address] [place] [address] Performed By: #### 2 4356-8 ####[facility] LABIA [id number] [place] [address] [place] RBC LM.HPF (Urine sed) [#/Area] 6-10 /HPF Abnormal 0-2 /HPF [facility] Comment on above: Order Comment: Speci men Type: URINE SPECIMENOrdering Facility: [facility] Address: [address] [place] [address] Performed By: #### 2 4356-8 ####[facility] LABIA [id number] [place] [address] [place] Specific gravity (U) [Rel density] 1.018 Normal 1.005-1.030 [facility] Comment on above: Order Comment: Speci men Type: URINE SPECIMENOrdering Facility: [facility] Address: [address] [place] [address] Performed By: #### 2 4356-8 ####[facility] LABIA [id number] [place] [address] [place] Urobilinogen Ql (U) 0.2 EU/dL Normal 0.2-1.0 EU/dL [facility] Comment on above: Order Comment: Speci men Type: URINE SPECIMENOrdering Facility: [facility] Address: [address] [place] [address] Performed By: #### 2 4356-8 ####[facility] LABIA [id number] [place] [address] [place] WBC LM.HPF (Urine sed) [#/Area] /[HPF] Abnormal 0-5 /HPF [facility] Comment on above: Order Comment: Speci men Type: URINE SPECIMENOrdering Facility: [facility] Address: [address] [place] [address] Performed By: #### 2 4356-8 ####[facility] [id number] [place] [address] [place] 25(OH)D3 SerPl-mCncon 2024 25-hydroxyvitamin D3 [Mass/Vol] 35.5 ng/mL Normal 31.0-80.0 [facility] Comment on above: Order Comment: Speci men Type: BLOOD SPECIMENOrdering Facility: [facility] Address: [address] [place] [address] Result Comment: Clas sification of 25 [place] Vitamin D status:Deficiency/Insufficiency: < or = 30 ng/ml.Sufficiency/Optimal Levels: 31-80 ng/mLToxicity: > 100 ng/mL.Test performed by chemiluminescent immunoassay. Performed By: #### 1 989-3 ####[facility] [id number] [place] [address] [place] ALT SerPl-cCncon 08-06-2024 ALT [Catalytic activity/Vol] 21 U/L Normal 7-38 [facility] Comment on above: Order Comment: Speci men Type: BLOOD SPECIMENOrdering Facility: [facility] Address: [address] [place] [address] Performed By: #### 4 5066-8, 1742-6, 1920-8 ####[facility] [id number] [place] [address] [place] AST SerPl-cCncon 08-06-2024 AST [Catalytic activity/Vol] 21 U/L Normal 13-35 [facility] Comment on above: Order Comment: Speci men Type: BLOOD SPECIMENOrdering Facility: [facility] Address: [address] [place] [address] Performed By: #### 4 5066-8, 1742-6, 1920-8 ####[facility] JAKEGREGORIA [id number] [place] [address] [place] CBC panel Auto (Bld)on 08-06 Erythrocyte distribution width (RBC) [Ratio] 12.9 % Normal 11.5-15.0 [facility] Comment on above: Order Comment: Speci men Type: BLOOD SPECIMENOrdering Facility: [facility] Address: [address] [place] [address] Performed By: #### 5 8410-2 ####[facility] [id number] [address] [place] Hematocrit (Bld) [Volume fraction] 41.9 % Normal 36.0-46.0 [facility] Comment on above: Order Comment: Speci men Type: BLOOD SPECIMENOrdering Facility: [facility] Address: [address] [place] [address] Performed By: #### 5 8410-2 ####[facility] [id number] [address] [place] Hemoglobin (Bld) [Mass/Vol] 14.3 g/dL Normal 11.5-15.5 [facility] Comment on above: Order Comment: Speci men Type: BLOOD SPECIMENOrdering Facility: [facility] Address: [address] [place] [address] Performed By: #### 5 8410-2 ####[facility]TERRYA [id number] [place] [address] [place] MCH (RBC) [Entitic mass] 31.2 pg Normal 26.0-34.0 [facility] Comment on above: Order Comment: Speci men Type: BLOOD SPECIMENOrdering Facility: [facility] Address: [address] [place] [address] Performed By: #### 5 8410-2 ####[facility] YULIAWNCLIA [id number] [place] [address] [place] MCHC (RBC) [Mass/Vol] 34.1 g/dL Normal 30.5-36.0 [facility] Comment on above: Order Comment: Speci men Type: BLOOD SPECIMENOrdering Facility: [facility] Address: [address] [place] [address] Performed By: #### 5 8410-2 ####[facility] [id number] [place] [address] [place] MCV (RBC) [Entitic vol] 91.3 fL Normal 80.0-100.0 [facility] Comment on above: Order Comment: Speci men Type: BLOOD SPECIMENOrdering Facility: [facility] Address: [address] [place] [address] Performed By: #### 5 8410-2 ####[facility]ITALNCA [id number] [place] [address] [place] Nucleated RBC (Bld) [#/Vol] 10*3/uL Normal <0.01 [facility] Comment on above: Order Comment: Speci men Type: BLOOD SPECIMENOrdering Facility: [facility] Address: [address] [place] [address] Performed By: #### 5 8410-2 ####[facility] OHIOLIA [id number] [place] [address] [place] Platelet mean volume (Bld) [Entitic vol] 9.0 fL Normal 9.0-12.7 [facility] Comment on above: Order Comment: Speci men Type: BLOOD SPECIMENOrdering Facility: [facility] Address: [address] [place] [address] Performed By: #### 5 8410-2 ####[facility] [id number] [place] [address] [place] Platelets (Bld) [#/Vol] 290 10*3/uL Normal 150-400 [facility] Comment on above: Order Comment: Speci men Type: BLOOD SPECIMENOrdering Facility: [facility] Address: [address] [place] [address] Performed By: #### 5 8410-2 ####[facility] [id number] [place] [address] [place] RBC (Bld) [#/Vol] 4.59 10*6/uL Normal 3.90-5.20 [facility] Comment on above: Order Comment: Speci men Type: BLOOD SPECIMENOrdering Facility: [facility] Address: [address] [place] [address] Performed By: #### 5 8410-2 ####[facility] [id number] [place] [address] [place] WBC (Bld) [#/Vol] 7.36 10*3/uL Normal 3.70-11.00 [facility] Comment on above: Order Comment: Speci men Type: BLOOD SPECIMENOrdering Facility: [facility] Address: [address] [place] [address] Performed By: #### 5 8410-2 ####[facility]CL[facility] [id number] [place] [address] [place] Creatinine + eGFR Pnl SerPlB ldon 08-06-2024 Creatinine and Glomerular filtration rate.predicted panel (S/P/Bld) 93 mL/min/1.73m??? Normal >=60 [facility] Comment on above: Order Comment: Speci men Type: BLOOD SPECIMENOrdering Facility: [facility] Address: [address] [place] [address] Result Comment: Angela mated Glomerular Filtration Rate (eGFR) is calculated using the 2020 CKD-EPI creatinine equation. This equation utilizes serum creatinine, sex, and age as parameters. The creatinine assay has traceable calibration to isotope dilution-mass spectrometry. Refer to KDIGO guidelines for clinical interpretation. In patients with unstable renal function, e.g. those with acute kidney injury, the eGFR may not accurately reflect actual GFR. Performed By: #### 4 5066-8, 1741-09, 1919-11 ####[facility] [id number] [place] [address] [place] Creatinine and Glomerular fi ltration rate.predicted panel (S/P/Bld)on 08-06-2024 Creatinine [Mass/Vol] 0.70 mg/dL Normal 0.58-0.96 [facility] Comment on above: Order Comment: Speci men Type: BLOOD SPECIMENOrdering Facility: [facility] Address: [address] [place] [address] Performed By: #### 4 5066-8, 1741-09, 1919-11 ####[facility] [id number] [place] [address] [place] Basic Metabolic Profile (BMP )on 07-24-2024 BUN/CRE 15.8 RATIO Normal 10-20 [facility] Comment on above: Performed By: #### L 500.2500 #### [facility] Laboratory [address] [place], [address] Calcium [Mass/Vol] 9.6 mg/dL Normal 7.6-11.0 [facility] Comment on above: Performed By: #### L 500.2500 #### [facility] [address] [place], [address] Chloride [Moles/Vol] 97 mmol/L Low 98-108 [facility] Comment on above: Performed By: #### L 500.2500 #### [facility] [address] [place], [address] CO2 [Moles/Vol] 24.6 mmol/L Normal 21.0-32.0 [facility] Comment on above: Performed By: #### L 500.2500 #### [facility] [address] [place], [address] Creatinine [Mass/Vol] 0.75 mg/dL Normal 0.70-1.20 [facility] Comment on above: Performed By: #### L 500.2500 #### [facility] [address] [place], [address] GAP 12 Normal 5-15 [facility] Comment on above: Performed By: #### L 500.2500 #### [facility] [address] [place], [address] GFR/1.73 sq M.predicted among non-blacks MDRD (S/P/Bld) [Vol rate/Area] 86 mL/min/{1.73_m2} Normal >60 [facility] Comment on above: Result Comment: mL/m in/1.73m2 CKD-EPI Creatinine Equation (2020) Performed By: #### L 500.2500 #### [facility] [address] [place], [address] Glucose [Mass/Vol] 121 mg/dL High 70-99 [facility] Comment on above: Performed By: #### L 500.2500 #### [facility] [address] [place], [address] Potassium [Moles/Vol] 4.2 mmol/L Normal 3.3-5.1 [facility] Comment on above: Performed By: #### L 500.2500 #### [facility] [address] [place], [address] Sodium [Moles/Vol] 134 mmol/L Normal 133-145 [facility] Comment on above: Performed By: #### L 500.2500 #### [facility] [address] [place], [address] Urea nitrogen [Mass/Vol] 12 mg/dL Normal 4-19 [facility] Comment on above: Performed By: #### L 500.2500 #### [facility] [address] [place], [place], [address] PVR LEG JOSIAH VAS LABon 2024 PVR LEG JOSIAH VAS LAB Normal [facility] US CAROTID ARTERIES JOSIAH VAS LABon 07-23-2024 US CAROTID ARTERIES JOSIAH VAS LAB Normal [facility] CNCNPATEDon 07-20-2024 CNCNPATED Normal [facility] MR/BMS.BPon 07-16-2024 MR/BMS.BP [facility] [address], [address] [place] [address] OFFICE VISIT Date of Service: 07/16/24 MR#: [id number] Acct: [id number] Name: PRISCILLA RAMOS (Estelita) Rep #: [id number] : 1955 Provider: Dr. Tl Zhang se, DO Age/Sex: 69/F Location: [facility].BP Status: Signed Intake Vital Signs 03/23/24 11:06 07/01/24 15:26 07/16/24 13:28 Height 5 ft 5 in 5 ft 5 in 5 ft 5 in BP 125/76 H Blood Pressure Location Lt brachial Position Sitting Pulse 91 Pulse Source Monitor BP Intake Visit Reasons: 3 M FU Collar Cutter Required: No Accompanied by: Self Is patient in pain?: Yes Pain scale (1-10): 2 Allergies hydrochlorothiazide Adverse Reaction (Verified 07/16/24 13:25) hyponatremia with 25 mg dose Medications ???Medication ???Instructions ???Recorded ???Confirmed ???Type cyanocobalamin (vitamin B-12) 500 500 mcg sublingual DAILY 12/14/14 07/16/24 History mcg sublingual tablet multivitamin with folic acid 400 1 tab PO DAILY 12/14/14 07/16/24 H istory mcg tablet (Thera) trazodone 50 mg tablet 25 mg PO QHS 12/14/14 07/16/24 His tory levothyroxine 25 mcg tablet 25 mcg PO DAILY 07/21/15 07/16/24 History biotin 2,500 mcg capsule 2,500 mcg PO DAILY 05/14/22 History calcium 600 mg-D3 20 mcg-magnesium 1 tab PO DAILY 05/14/22 07/16/24 History 50 ab-Jl-nktvuo-gonzalo-b oron tablet (Calcium 600-D3 Plus (mag-zinc)) cholecalciferol (vitamin D3) 25 2,000 unit PO QHS 05/14/22 5 History mcg (1,000 unit) tablet (Vitamin D3) gabapentin 400 mg capsule 800 mg PO QHS 05/14/22 07/16/24 Hi story aspirin 81 mg tablet,delayed 81 mg PO DAILY 06/07/22 07/16/24 H istory release (Adult Aspirin Regimen) coenzyme Q10 50 mg capsule (Co 50 mg PO DAILY 12/31/22 07/16/24 H istory Q-10) rosuvastatin 5 mg tablet 5 mg PO .3 x week 12/31/22 5 History losartan 100 mg tablet 100 mg PO QHS bp 06/30/24 07/16/24 History hydrochlorothiazide 12.5 mg tablet 12.5 mg PO QAM 07/14/24 07/16/24 History bupropion HCl 150 mg 24 hr tablet, 150 mg PO DAILY #90 tabs 5 07/16/24 Rx extended release fluoxetine 40 mg capsule 40 mg PO DAILY #90 caps 07/16/24 0 07/16/24 Rx sulfasalazine 500 mg tablet 0.5 g PO QDAY 07/16/24 07/16/24 Hi story Have you fallen in the past year?: No PFSH Medical History Tiffany's disease Persistent depressive disorder Depression Osteoporosis BiPAP (biphasic positive airway pressure) dependence Chest pain Abnormal stress test Arthritis Essential hypertension Breast nodule Thyroid nodule Obesity Fibromyalgia Dysthymic disorder NELI (obstructive sleep apnea) Hypothyroidism Surgical History History of foot surgery History of total right knee replacement (TKR) History of 2 sections History of herniorrhaphy History of laparoscopic cholecystectomy Family History Mother CVA (cerebral vascular accident) Thyroid disorder Diabetes Father Kidney disease Cancer Social History Smoking Status: Never smoker alcohol intake: current alcohol intake frequency: 0-2 drinks per day Alcohol type: wine substance use type: does not use caffeine: Yes Type: coffee Number of servings: 2 HPI History of Present Illness History provided by: patient HPI: Priscilla Ramos is a 69 year old female who presents today for follow up evaluation. Patient reports that her 16 year old dog recently had been going downhill and experiencing worsening health which had been worsening her anxiety. She had drank a significant amount of wine on a Saturday then felt much worse the following Saturday and Saturday and was drinking a large amount of water thinking it was secondary to the alcohol she had drank. When not starting to feel better she did go to the emergency room. Was found to have some hyponatremia and was admitted for observation overnight. Had a full workup for stroke, but everything was found to be largely normal. Has been feeling better since this time with cutting HCTZ back. Mood has been ok. 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 Has decided that she is going to continue to work because she needs additional income coming in. Feels like medications are working largely well. Denies SI/HI or AVH. Review of Systems Constitutional Denies: fever(s), chills, change in weight or fatigue Eyes Denies: change in vision or blurry vision Ears, Nose, Mouth, Throat Denies: throat pain, neck pain or change in hearing Cardiovascular Denies: chest p (more content not included)... Normal [facility] CNOVon 07-10-2024 CNOV Normal [facility] CNOVon 07-07-2024 CNOV Normal [facility] Alcohol, Blood (Medical)-Ser umon 07-01-2024 SERUM ETOH < 10.1 Normal <=10.0 [facility] Comment on above: Result Comment: This test is for medical purposes only. The legal definition of intoxication varies according to local law. Performed By: #### L 501.9100 ####[facility] [address] [place], [address] Basic Metabolic Profile (BMP )on 07-01-2024 BUN/CRE 14.7 RATIO Normal 10-20 [facility] Comment on above: Order Comment: Comme nts: NPO at [place] prior to lipid panel Performed By: #### L 500.4100, L500.2500 ####[facility] [address] [place], [address] Calcium [Mass/Vol] 9.4 mg/dL Normal 7.6-11.0 [facility] Comment on above: Order Comment: Comme nts: NPO at [place] prior to lipid panel Performed By: #### L 500.4100, L500.2500 ####[facility] [address] [place], [address] Chloride [Moles/Vol] 98 mmol/L Normal 98-108 [facility] Comment on above: Order Comment: Comme nts: NPO at [place] prior to lipid panel Performed By: #### L 500.4100, L500.2500 ####[facility] [address] [place], [address] CO2 [Moles/Vol] 23.0 mmol/L Normal 21.0-32.0 [facility] Comment on above: Order Comment: Comme nts: NPO at [place] prior to lipid panel Performed By: #### L 500.4100, L500.2500 ####[facility] [address] [place], [address] Creatinine [Mass/Vol] 0.65 mg/dL Low 0.70-1.20 [facility] Comment on above: Order Comment: Comme nts: NPO at [place] prior to lipid panel Performed By: #### L 500.4100, L500.2500 ####[facility] [address] [place], [address] ECRCL 85.66 ml/min Normal 50-250 [facility] Comment on above: Order Comment: Comme nts: NPO at [place] prior to lipid panel Performed By: #### L 500.4100, L500.2500 ####[facility] [address] [place], [address] GAP 13 Normal 5-15 [facility] Comment on above: Order Comment: Comme nts: NPO at [place] prior to lipid panel Performed By: #### L 500.4100, L500.2500 ####[facility] [address] [place], [address] GFR/1.73 sq M.predicted among non-blacks MDRD (S/P/Bld) [Vol rate/Area] 95 mL/min/{1.73_m2} Normal >60 [facility] Comment on above: Order Comment: Comme nts: NPO at [place] prior to lipid panel Result Comment: mL/m in/1.73m2 CKD-EPI Creatinine Equation (2020) Performed By: #### L 500.4100, L500.2500 ####[facility] [address] [place], [address] Glucose [Mass/Vol] 114 mg/dL High 70-99 [facility] Comment on above: Order Comment: Comme nts: NPO at [place] prior to lipid panel Performed By: #### L 500.4100, L500.2500 ####[facility] [address] [place], [address] Potassium [Moles/Vol] 4.0 mmol/L Normal 3.3-5.1 [facility] Comment on above: Order Comment: Comme nts: NPO at [place] prior to lipid panel Performed By: #### L 500.4100, L500.2500 ####[facility] [address] [place], [address] Sodium [Moles/Vol] 135 mmol/L Normal 133-145 [facility] Comment on above: Order Comment: Comme nts: NPO at [place] prior to lipid panel Performed By: #### L 500.4100, L500.2500 ####[facility] [address] [place], [place], [address] Urea nitrogen [Mass/Vol] 9 mg/dL Normal 4-19 [facility] Comment on above: Order Comment: Comme nts: NPO at [place] prior to lipid panel Performed By: #### L 500.4100, L500.2500 ####[facility] [address] [place], [place], [address] Brain without Contraston Brain without Contrast [facility] Imaging Services [address] [place], [place] [address] Brain without Contrast MR#: [id number] Acct: [id number] Name: PRISCILLA RAMOS (Estelita) Rep #: [id number] : 1955 F 69 From: Eric Mckenzie MD PCP: Dr. Emilee Condon MD Status: ADM REI Study: Brain without Contrast Date of Exam: 07/01/24 Exam# [id number] Ordering Dr: Tomas Gerber DO PROCEDURE: BRAIN WITHOUT CONTRAST (MRIBR), 07/01/2024 REASON FOR EXAM: INTERMITTENT DIZZINESS AND ATAXIA. CVA VS TIA. COMPARISON: CT of same date. TECHNIQUE: Multisequence multiplanar MRI brain was performed without intravenous contrast. Contrast: None. FINDINGS: Cerebrum: No acute infarct, mass, or appreciable intracranial hemorrhage identified. Mild supratentorial white matter abnormalities, nonspecific but compatible with chronic microvascular ischemic changes. Mild/moderate cerebral volume loss. Likely tiny remote infarct in the right frontal periventricular white matter. Cerebellum: Unremarkable. Brainstem: Unremarkable. Ventricles/extra-axia l spaces: Mild ventriculomegaly is proportionate to the degree of volume loss. Major flow voids: Grossly unremarkable within limits of nondedicated technique. Paranasal sinuses: Unremarkable. Scalp/calvarium: Unremarkable. Orbits: Mildly prominent CSF in the optic nerve sheaths without tortuosity. Otherwise grossly unremarkable within limits of nondedicated technique. Other: Partially empty sella, can be a normal variant or may be seen in the setting of idiopathic intracranial hypertension amongst other etiologies. MRI/Brain without Contrast IMPRESSION: 1. No definite evidence of an acute intracranial process. 2. Nonspecific findings which could conceivably reflect intracranial hypertension. Correlate with clinical evaluation. 3. Additional description as above. Reading Location: [id number] CC: Dr. Tomas Gerber DO; Dr. Emilee Condon MD Equipment Washer: Signed Normal [facility] Chest without Contraston Chest without Contrast [facility] Imaging Services [address] [place] [address] Chest without Contrast MR#: [id number] Acct: [id number] Name: PRISCILLA RAMOS (Estelita) Rep #: [id number] : 1955 F 69 From: Cuauhtemoc Rincon i, MD PCP: Dr. Emilee Condon MD Status: ADM REI Study: Chest without Contrast Date of Exam: 07/01/24 Exam# [id number] Ordering Dr: Tomas Gerber DO PROCEDURE: CHEST WITHOUT CONTRAST REASON FOR EXAM: SUSPECTED PNA ON CXR. TECHNIQUE: Chest CT without contrast. COMPARISON: Chest x-ray performed on June 30, 2024. FINDINGS: The trachea and central bronchial tree are patent. There is no pleural or pericardial effusion. The heart is normal in size. There are no pathologically enlarged lymph nodes within the mediastinum. The heart is normal in size. No pathologically enlarged lymph nodes are present within the mediastinum. There is no pneumothorax. There are streaky changes at the lung bases. These are likely to represent scarring versus subsegmental atelectasis. No definite acute osseous abnormality seen within chest. 1.6 cm subcutaneous nodule seen within the left upper abdominal wall. This is best seen on image 93/121. This is incompletely characterized. Differential possibility includes, but not limited to sebaceous cyst versus other etiologies. Focal ultrasound may be performed for further evaluation. CT/Chest without Contrast IMPRESSION: No acute infiltrate or consolidation is seen. No definitive evidence of pneumonia is seen. 1.6 cm subcutaneous nodule seen within the left upper abdominal wall. This is best seen on image 93/121. This is incompletely characterized. Differential possibility includes, but not limited to sebaceous cyst versus other etiologies. Focal ultrasound may be performed for further evaluation. One or more dose reduction techniques were used (e.g., Automated exposure control, adjustment of the mA and/or kV according to patient size, use of iterative reconstruction technique). Reading Location: [id number] CC: Dr. Tomas Gerber DO; Dr. Emilee Condon MD Equipment Washer: Signed Normal [facility] D-Dimer Quantitative (DVT/PE )on 07-01-2024 D-DIMER QUANT 0.49 FEU/ug/m Normal 0.27-0.49 [facility] Comment on above: Result Comment: NORM AL D-Dimer level (<0.50) indicates no DVT or PE. Performed By: #### L 300.8000 #### [facility] Laboratory [address] [place], [address] Discharge Instructionon 06-20 Discharge Instruction [facility] Medical Records Department [address] [place] [address] Instructions for Home/Discharge Instructions 07/01/24 1512 MR#: [id number] Acct: [id number] Name: PRISCILLA RAMOS) Rep #: [id number] : 1955 69 From: Dieudonne Olmos MD PCP: Dr. Emilee Condon MD Status:ADM REI Discharge Instructions Diet Discharge Diet: Low fat / Low cholesterol DC O2, CPAP, BIPAP needs Home O2 Discharge instructions: No Dressing / Incision Discharge Activity: Return to Normal Activity Dressing / Incision Call your doctor if you observe: Fever of 101 or Higher, Shortness of breath, Dizziness, Fainting spells, Swelling in the ankles, Chest pain and Increased palpitations (irregular heartbeat) Follow Up Care Test Results: Test results from this visit will be discussed in further detail at your follow-up appointment, if applicable. Discharge Plan Admission Admit Date/Time: 06/30/24 21:57 Attending Provider: Dieudonne Olmos Primary Care Provider: Emilee Condon Consulting Providers: Jackson Garza; Carlos Sousa; Oralia Sharp; Ivon Livingston; Tiana Mock; Low Pinon; Park Lafleur; Anurag Drake; Pk Anthony; Gagan Jones; Aparna Limon; Jean Pierre Eugene; Verónica Hinojosa; Vale Lyon; Rey Espinosa; Brett Momin; Keith Mendez; Obinna Wells; Liza Hernandez; Bell Parisi; Tomas Gerber Discharge Orders/Prescriptions Prescriptions: New amlodipine [Norvasc] 5 mg tablet 5 mg PO DAILY Qty: 30 0RF Continued gabapentin 400 mg capsule 800 mg PO QHS Rx Instructions: Start on 05/30/22 Ca-D3-mag br-vild-nlv-jose-bor [Calcium 600-D3 Plus (mag-zinc)] 600 mg calcium- 20 mcg-50 mg tablet 1 tab PO DAILY biotin 2,500 mcg capsule 2,500 mcg PO DAILY rosuvastatin 5 mg tablet 5 mg PO .3 x week Rx Instructions: MWF coenzyme Q10 [Co Q-10] 50 mg capsule 50 mg PO DAILY bupropion HCl 150 mg tablet extended release 24 hr 150 mg PO DAILY Qty: 90 2RF trazodone 50 MG tablet 25 mg PO QHS Patient Comments: SLEEP multivitamin with folic acid [Thera] 1 TABLET tablet 1 tab PO DAILY Patient Comments: supplement cyanocobalamin (vitamin B-12) 500 MCG tablet, sublingual 500 mcg sublingual DAILY Patient Comments: supplement cholecalciferol (vitamin D3) [Vitamin D3] 25 mcg (1,000 unit) tablet 2,000 unit PO QHS Patient Comments: supplement levothyroxine 25 MCG tablet 25 mcg PO DAILY Patient Comments: thyroid med losartan 100 mg tablet 100 mg PO QHS Rx Instructions: TAKE 1 TABLET BY MOUTH DAILY aspirin [Adult Aspirin Regimen] 81 mg tablet,delayed release (DR/EC) 81 mg PO DAILY fluoxetine 40 mg capsule 40 mg PO DAILY Qty: 90 1RF Discontinued hydrochlorothiazide 25 mg tablet 25 mg PO DAILY Qty: 90 3RF Referrals / Follow Up: Emilee Condon MD [Primary Care Provider] - Within 1 Week Disposition Disposition (needs filled in before D/C Order can be placed): Home, Self Care 07/01/24 1452 Dieudonne Olmos MD CC: Ivon Livingston; Verónica Hinojosa; Brett Momin; Tiana Mock MD; Oralia Sharp MD; Jackson Garza MD; Dr. Carlos Sousa MD; Dr. Tomas Gerber DO; Dr. Low Pinon MD; Dr. Park Lafleur MD; Dr. Pk Anthony MD; Dr. Anurag Drake MD; Dr. Gagan Jones MD; Dr. Emilee Condon MD; Dr. Jean Pierre Eugene DO; Dr. Rey Espinosa MD; Dr. Vale Lyon MD; Dr. Keith Mendez MD; Dr. Obinna Wells MD; Dr. Liza Hernandez MD; Aparna Limon DO; Bell Parisi MD Signed Normal [facility] Echo Completeon 07-01-2024 Echo Complete [facility] Cardiovascular Services [address] [place] [address] Echo Complete 07/01/24 0852 MR#: [id number] Acct: [id number] Name: PRISCILLA RAMOS (Estelita) Rep #: [id number] : 1955 69 From: Ar Witt MD Attending Dr: Dr. Dieudonne Olmos MD Status : ADM REI Ordering Dr: Tomas Gerber DO Date: 07/01/24 Location: [facility] Sex: F C Admitted: 06/30/24 Reason For Study Reason For Study: TIA/CVA Procedure This was a 2D Doppler, Color Flow transthoracic echocardiogram. Exam performed portable in patient room. Left Ventricle Normal LV size. The estimated ejection fraction is 70 %. No evidence for diastolic dysfunction. No regional wall motion abnormalities noted. Right Ventricle Normal RV size. Normal systolic function. Atria The left and right atria are normal. No doppler evidence for ASD. Mitral Valve There is no mitral valve stenosis. Trivial mitral valve insufficiency. Tricuspid Valve There is no tricuspid stenosis. Unable to estimate RV systolic pressure due to inadequate jet, pulmonary artery pressure probably normal. Aortic Valve Trisinus/trileaflet aortic valve. There is no aortic stenosis. No aortic valve insufficiency. Pulmonic Valve There is no pulmonic valvular stenosis. No pulmonic valve insufficiency. Great Vessels Normal sized aortic root. Pericardium/Pleural No pericardial effusion. Medication Performed a rapid injection of agitated mix of 9 cc saline and 1cc air to assess for atrial septal defect. 2 attempts. MMode/2D Measurements Calculations LVIDd: 4.6 cm IVSd: 1.2 cm Ao root diam: 3.6 cm LVIDs: 3.2 cm LVPWd: 1.5 cm RVDd: 3.2 cm FS: 31.0 % LAV(MOD-bp): 57.3 ml LVAd ap4: 24.1 cm2 LVAd ap2: 26.3 cm2 LAV(MOD-bp) Indexed: 25.6 ml/m2 LVLd ap4: 7.6 cm LVLd ap2: 8.2 cm LAV(MOD-sp2): 48.1 ml EDV(MOD-sp4): 64.8 ml EDV(MOD-sp2): 72.8 ml LAV(MOD-sp4): 54.9 ml EDV(sp4-el): 64.9 ml EDV(sp2-el): 71.3 ml LVAs ap4: 14.0 cm2 LVAs ap2: 14.4 cm2 LVLs ap4: 6.5 cm LVLs ap2: 7.0 cm ESV(MOD-sp4): 27.1 ml ESV(MOD-sp2): 25.1 ml ESV(sp4-el): 25.8 ml ESV(sp2-el): 25.1 ml EF(MOD-sp4): 58.2 % EF(MOD-sp2): 65.4 % EF(sp4-el): 60.3 % SV(MOD-sp4): 37.7 ml SV(MOD-sp2): 47.6 ml SV(sp4-el): 39.1 ml SI(MOD-sp4): 16.8 ml/m2 SI(MOD-sp2): 21.3 ml/m2 LA A4 area: 19.3 cm2 LA dimension(2D): 2.8 cm TAPSE: 2.1 cm Time Measurements MV dec time: 0.20 sec Doppler Measurements Calculations MV E max luis: 79.0 cm/sec Lat Peak E' Luis: 9.0 cm/sec Med Peak E' Luis: 9.5 cm/sec MV A max luis: 99.6 cm/sec E/E' lat: 8.7 E/E' med: 8.3 MV E/A: 0.79 MV V2 max: 112.2 cm/sec MV P1/2t max luis: 108.7 cm/sec Ao V2 max: 126.6 cm/sec MV max P.0 mmHg MV P1/2t: 73.3 msec Ao max P.4 mmHg MV V2 mean: 66.4 cm/sec MV dec slope: 434.6 cm/sec2 Ao V2 mean: 86.3 cm/sec MV mean P.0 mmHg MVA(P1/2t): 3.0 cm2 Ao mean P.3 mmHg MV V2 VTI: 27.5 cm Ao V2 VTI: 27.6 cm AV (velocity ratio): 0.80 LV V1 max: 93.4 cm/sec PA V2 max: 83.1 cm/sec LV V1 max P.5 mmHg LV V1 mean P.0 mmHg LV V1 mean: 66.0 cm/sec LV V1 VTI: 21.9 cm ECHO/Echo Complete Interpretation Summary The estimated ejection fraction is 70 %. No evidence for diastolic dysfunction. Trivial mitral valve insufficiency. Ordering Physician: Tomas Gerber Referring Physician: Emilee Condon Performed By: Junie Butts, NELLIECS, RVT 07/01/24 1356 Date Ar Witt MD CC: Dr. Tomas Gerber DO; Dr. Emilee Condon MD; Dr. Dieudonne Olmos MD Date Dictated: 07/01/24 0852 Date Transcribed: 07/01/24 1356 Equipment Washer: Signed Normal [facility] L503.0106on 07-01-2024 Cobalamin (Vitamin B12) [Mass/Vol] 1511 pg/mL High 180-914 [facility] Comment on above: Performed By: #### L 503.0106, L501.7300 ####[facility] [address] [place], [address] L503.7505on 07-01-2024 Natriuretic peptide B (Bld) [Mass/Vol] 71 pg/mL Normal <=900 [facility] Comment on above: Result Comment: Hear t Failure Unlikely: < 300 pg/mL Heart Failure Likely < 50 Years: > 450 pg/mL 50-75 Years: > 900 pg/mL >75 Years: > 1800 pg/mL Performed By: #### L 503.7505 ####[facility] [address] [place], [address] Lipid Profileon 07-01-2024 CHOL:HDL 2.18 Normal [facility] Comment on above: Order Comment: Comme nts: NPO at [place] prior to lipid panel Performed By: #### L 500.4100, L500.2500 ####[facility] [address] [place], [address] Cholesterol [Mass/Vol] 187 mg/dL Normal <=200 [facility] Comment on above: Order Comment: Comme nts: NPO at [place] prior to lipid panel Result Comment: Chol esterol level, Desirable <200 mg/dL Borderline high cholesterol 200-239 mg/dL High cholesterol >=240 mg/dL Recommendations of the NCEP Adult Treatment Panel for the following risk-cutoff thresholds for the [place] population. Performed By: #### L 500.4100, L500.2500 ####[facility] [address] [place], [address] Cholesterol in HDL [Mass/Vol] 86 mg/dL Normal [facility] Comment on above: Order Comment: Comme nts: NPO at [place] prior to lipid panel Result Comment: Leanne onal Cholesterol Education Program (NCEP) guidelines: <40 mg/dL: Low HDL-cholesterol (major risk factor for CHD) >= 60 mg/dL: High HDL-cholesterol (negative risk factor for CHD) HDL-cholesterol is affected by a number of factors, e.g. smoking, exercise, hormones, sex and age. Performed By: #### L 500.4100, L500.2500 ####[facility] [address] [place], [address] Cholesterol in LDL [Mass/Vol] 86 mg/dL Normal [facility] Comment on above: Order Comment: Comme nts: NPO at [place] prior to lipid panel Result Comment: Bord ptsdju=744-416 mg/dL Higher Wpxn=387 mg/dL or greater Performed By: #### L 500.4100, L500.2500 ####[facility] [address] [facility] [place], [address] Cholesterol in VLDL [Mass/Vol] 15 mg/dL Normal 5-40 [facility] Comment on above: Order Comment: Comme nts: NPO at [place] prior to lipid panel Performed By: #### L 500.4100, L500.2500 ####[facility] [address] [facility] [place], [address] Triglyceride [Mass/Vol] 76 mg/dL Normal [facility] Comment on above: Order Comment: Comme nts: NPO at [place] prior to lipid panel Result Comment: The drugs N-Acetylcysteine and Metamizole may falsely depress this assay. Normal range: <150 mg/dL Borderline High: 150-199 mg/dL High: 200-499 mg/dL Very High: >500 mg/dL Performed By: #### L 500.4100, L500.2500 ####[facility] [address] [place], [address] MR/CON.PCM.Quan 07-01-2024 MR/CON.PCM.NE [facility] Medical Records Department [address] [place] [address] Consultation - Neurology 07/01/24 1218 MR#: [id number] Acct: [id number] Name: PRISCILLA RAMOS) Rep #: [id number] : 1955 69 From: Oralia Sharp MD PCP: Dr. Emilee Condon MD Status:ADM REI Location: [place] [address] Assessment and Plan: Stroke Assessment/Plan PRISCILLA RAMOS (Shelly) is a 69 F with a history of PRISCILLA RAMOS, is a 69 F with a past medical history of essential hypertension, hyperlipidemia, Tiffany's thyroiditis with subsequent hypothyroidism, morbid obesity, NELI, on BiPAP, CAD, diastolic dysfunction without CHF, claudication, fibromyalgia, depression who presents to the ER complaining of dizziness. Neurological examination shows No deficits. Neuroimaging shows MRI Brain: No acute stroke. HbA1C: 5.8, LDL: 86, ECHO, carotid duplex pending. Dizziness unlikely from an acute stroke/TIA. 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 Spent 80 min in evaluation and management HPI Consult Data Date of Consult: 07/01/24 HPI Narrative HPI Narrative: PRISCILLA RAMOS, is a 69 F with a past medical history of essential hypertension, hyperlipidemia, Tiffany's thyroiditis with subsequent hypothyroidism, morbid obesity, NELI, on BiPAP, CAD, diastolic dysfunction without CHF, claudication, fibromyalgia, depression who presents to [facility] ER complaining of dizziness. Her symptoms began approximately 2 days prior to admission on Friday, June 28, 2024 with intermittent dizziness and lightheadedness since that time as she was caring for her eleven 16-year-old dog who is in the process of dying causing her severe acute distress. It got worse. It was precipitated by moving her head side to side and when she got up from chair position. It was in the form of lightheadedness and lasted for few minutes. She has numbness in both hands when she presented to the ER. No weakness, diplopia, slurred speech. She had associated nausea but she denies vomiting. She then went to see one of her medical providers and they noted sharply elevated blood pressure and they encouraged her to come in for further evaluation and treatment, which she agreed to do after she went home and her blood pressure remains persistently elevated in the 170 mmHg systolic range with patient noticing a corresponding new mild dyspnea on exertion. She states her blood pressure has been very well-controlled on her current regimen and she usually does not have uncontrolled hypertension. Her symptoms are getting better. In the ER she underwent CT of the brain without contrast which showed no acute pathologic changes. [facility] Medical History Tiffany's disease Persistent depressive disorder Depression Osteoporosis BiPAP (biphasic positive airway pressure) dependence Chest pain Abnormal stress test Arthritis Essential hypertension Breast nodule Thyroid nodule Obesity Fibromyalgia Dysthymic disorder NELI (obstructive sleep apnea) Hypothyroidism Home Medications ???Medication ???Instructions ???Recorded ???Last Taken ???Type cyanocobalamin (vitamin B-12) 500 500 mcg sublingual DAILY 12/14/14 Unknown History mcg sublingual tablet multivitamin with folic acid 400 1 tab PO DAILY 12/14/14 Unknown Hi story mcg tablet (Thera) trazodone 50 mg tablet 25 mg PO QHS 12/14/14 Unknown Hist ory levothyroxine 25 mcg tablet 25 mcg PO DAILY 07/21/15 06/11/22 History biotin 2,500 mcg capsule 2,500 mcg PO DAILY 05/14/22 Unknow n History calcium 600 mg-D3 20 mcg-magnesium 1 tab PO DAILY 05/14/22 Unknown History 50 jw-Wg-nvqexq-gonzalo-b oron tablet (Calcium 600-D3 Plus (mag-zinc)) cholecalciferol (vitamin D3) 25 2,000 unit PO QHS 05/14/22 Unknown History mcg (1,000 unit) tablet (Vitamin D3) gabapentin 400 mg capsule 800 mg PO QHS 05/14/22 Unknown His tory aspirin 81 mg tablet,delayed 81 mg PO DAILY 06/07/22 06/11/22 H istory release (Adult Aspirin Regimen) coenzyme Q10 50 mg capsule (Co 50 mg PO DAILY 12/31/22 Unknown Hi story Q-10) rosuvastatin 5 mg tablet 5 mg PO .3 x week 12/31/22 Unknown History bupropion HCl 150 mg 24 hr tablet, 150 mg PO DAILY #90 tabs 4 Unknown Rx extended release fluoxetine 40 mg capsule 40 mg PO DAILY #90 caps 02/03/24 U nknown Rx hydrochlorothiazide 25 mg tablet 25 mg PO DAILY #90 tabs 03/23/24 U nknown Rx losartan 100 mg tablet 100 mg PO QHS bp 06/30/24 Unknown History Allergy/AdvReac Type Severity Reaction Status Date / Time hydrochlorothiazide AdvRe (more content not included)... Normal [facility] Osmolality, Serumon 07-02-19 25 OSMOLALITY,SER 273 mOsm/KG Low 280-301 [facility] Comment on above: Performed By: #### L 503.0106, L501.7300 ####[facility] [address] [place], [address] Osmolality, Urineon 07-02-19 25 OSMOLALITY,UR 199 mOsm/KG Normal [facility] Comment on above: Result Comment: Normal Urine Reference Ranges Random: 50 - 1200 mOsm/kg H20 depending on fluid intake Random: >850 mOsm/kg after 12 hour fluid restriction 24 hour: 300 - 900 mOsm/kg H2O Performed By: #### L 501.7400 #### [facility] Laboratory [address] [place], [address] Urine Drug Screen (VISTA)on 07-01-2024 AMPHETAMINES Negative Normal <1000 ng/mL [facility] Comment on above: Order Comment: UNK Performed By: #### L 506.0200, L501.9520, L505.5000, L501.9985 ####[facility] [address] [place], [address] BARBITIURATES Negative Normal < 200 ng/mL [facility] Comment on above: Order Comment: UNK Performed By: #### L 506.0200, L501.9520, L505.5000, L501.9985 ####[facility] [address] [place], [address] BENZODIAZIPINE Negative Normal < 200 ng/mL [facility] Comment on above: Order Comment: UNK Performed By: #### L 506.0200, L501.9520, L505.5000, L501.9985 ####[facility] [address] [place], [address] BUP Ur Drug Scr Negative Normal < 200 ng/mL [facility] Comment on above: Order Comment: UNK Performed By: #### L 506.0200, L501.9520, L505.5000, L501.9985 ####[facility] [address] [place], [address] COCAINE Negative Normal < 300 ng/mL [facility] Comment on above: Order Comment: UNK Performed By: #### L 506.0200, L501.9520, L505.5000, L501.9985 ####[facility] [address] [place], [address] Fentanyl Negative Normal [facility] Comment on above: Order Comment: UNK Performed By: #### L 506.0200, L501.9520, L505.5000, L501.9985 ####[facility] [address] [place], [address] METHADONE Negative Normal < 300 ng/mL [facility] Comment on above: Order Comment: UNK Performed By: #### L 506.0200, L501.9520, L505.5000, L501.9985 ####[facility] [address] [place], [address] OPIATES Negative Normal < 300 ng/mL [facility] Comment on above: Order Comment: UNK Performed By: #### L 506.0200, L501.9520, L505.5000, L501.9985 ####[facility] [address] [place], [address] OXYCODONE Negative Normal < 100 ng/mL [facility] Comment on above: Order Comment: UNK Performed By: #### L 506.0200, L501.9520, L505.5000, L501.9985 ####[facility] [address] [place], [address] PCP Negative Normal < 25 ng/mL [facility] Comment on above: Order Comment: UNK Performed By: #### L 506.0200, L501.9520, L505.5000, L501.9985 ####[facility] [address] [place], [address] THC Negative Normal < 50 ng/mL [facility] Comment on above: Order Comment: UNK Performed By: #### L 506.0200, L501.9520, L505.5000, L501.9985 ####[facility] [address] [place], [address] 12 Lead EKGon 06-30-2024 12 Lead EKG [facility] Cardiovascular Services [address] [place] [address] 12 Lead EKG 06/30/24 1733 MR#: [id number] Acct: [id number] Name: PRISCILLA RAMOS) Rep #: [id number] : 1955 69 From: Ar Witt MD Attending Dr: Dr. Dieudonne Olmos MD Status : DIS REI Ordering Dr: Waqas Barrow MD Date: 06/30/24 Location: [facility] Sex: F C Admitted: 06/30/24 Test Reason : DIZZY Blood Pressure : */* mmHG Vent. Rate : 85 BPM Atrial Rate : 85 BPM P-R Int : 186 ms QRS Dur : 90 ms QT Int : 382 ms P-R-T Axes : 70 57 61 degrees QTcB Int : 454 ms Normal sinus rhythm Normal ECG Confirmed by DELORES ARCHIBALD, NIKKY ([id number]), industrial editor IMAN MORGAN ([id number]) on 07/06/2024 11:19:12 AM Referred By: Confirmed By: NIKKY WITT MD 07/06/24 1119 Date Ar Witt MD CC: Dr. Waqas Barrow MD; Dr. Eimlee Condon MD; Dr. Dieudonne Olmos MD Signed Normal [facility] Basic Metabolic Profile (BMP )on 06-30-2024 BUN/CRE 13.2 RATIO Normal 10-20 [facility] Comment on above: Performed By: #### L 300.3900, L500.2500, L300.4310, L100.0100 #### [facility] [address] [place], [address] Calcium [Mass/Vol] 9.6 mg/dL Normal 7.6-11.0 [facility] Comment on above: Performed By: #### L 300.3900, L500.2500, L300.4310, L100.0100 #### [facility] [address] [place], [address] Chloride [Moles/Vol] 91 mmol/L Low 98-108 [facility] Comment on above: Performed By: #### L 300.3900, L500.2500, L300.4310, L100.0100 #### [facility] [address] [place], [address] CO2 [Moles/Vol] 25.3 mmol/L Normal 21.0-32.0 [facility] Comment on above: Performed By: #### L 300.3900, L500.2500, L300.4310, L100.0100 #### [facility] [address] [place], [address] Creatinine [Mass/Vol] 0.75 mg/dL Normal 0.70-1.20 [facility] Comment on above: Performed By: #### L 300.3900, L500.2500, L300.4310, L100.0100 #### [facility] [address] [place], [address] GAP 14 Normal 5-15 [facility] Comment on above: Performed By: #### L 300.3900, L500.2500, L300.4310, L100.0100 #### [facility] [address] [place], [address] GFR/1.73 sq M.predicted among non-blacks MDRD (S/P/Bld) [Vol rate/Area] 85 mL/min/{1.73_m2} Normal >60 [facility] Comment on above: Result Comment: mL/m in/1.73m2 CKD-EPI Creatinine Equation (2020) Performed By: #### L 300.3900, L500.2500, L300.4310, L100.0100 #### [facility] [address] [place], [address] Glucose [Mass/Vol] 150 mg/dL High 70-99 [facility] Comment on above: Performed By: #### L 300.3900, L500.2500, L300.4310, L100.0100 #### [facility] [address] [place], [address] Potassium [Moles/Vol] 3.7 mmol/L Normal 3.3-5.1 [facility] Comment on above: Performed By: #### L 300.3900, L500.2500, L300.4310, L100.0100 #### [facility] [address] [place], [address] Sodium [Moles/Vol] 130 mmol/L Low 133-145 [facility] Comment on above: Performed By: #### L 300.3900, L500.2500, L300.4310, L100.0100 #### [facility] [address] [place], [address] Urea nitrogen [Mass/Vol] 10 mg/dL Normal 4-19 [facility] Comment on above: Performed By: #### L 300.3900, L500.2500, L300.4310, L100.0100 #### [facility] [address] [place], [address] Brain/Head without Contrasto n 06-30-2024 Brain/Head without Contrast [facility] Imaging Services [address] [place] [address] Brain/Head without Contrast MR#: [id number] Acct: [id number] Name: PRISCILLA RAMOS (Estelita) Rep #: [id number] : 1955 F 69 From: Cuauhtemoc Rincon i, MD PCP: Dr. Emilee Condon MD Status: PRE ER Study: Brain/Head without Contrast Date of Exam: 06/20 05/16 Exam# [id number] Ordering Dr: Waqas Barrow MD EXAM: BRAIN/HEAD WITHOUT CONTRAST CLINICAL HISTORY: DIZZINESS COMPARISON: CTA dated 05/14/2022. TECHNIQUE: CT of the brain was performed without intravenous contrast administration. Multiplanar reformats were obtained afterwards. FINDINGS: There is no acute intracranial hemorrhage, mass effect or midline shift. There are no abnormal extra-axial fluid collections present. The calvarium is intact. Visualized paranasal sinuses are unremarkable. CT/Brain/Head without Contrast IMPRESSION: No acute intracranial hemorrhage, mass effect or midline shift. Reading Location: [id number] CC: Dr. Waqas Barrow MD; Dr. Emilee Condon MD Equipment Washer: Signed Normal [facility] CBC W/Diff, Automatedon 06-20 Absolute Lymph 1.56 X10 3/uL Normal 0.83-4.51 [facility] Comment on above: Performed By: #### L 300.3900, L500.2500, L300.4310, L100.0100 #### [facility] [address] [place], [address] Absolute Neut 4.3 X10 3/uL Normal 2.0-7.7 [facility] Comment on above: Performed By: #### L 300.3900, L500.2500, L300.4310, L100.0100 #### [facility] [address] [place], [address] Basophils/100 WBC (Bld) 0.6 % Normal 0-1 [facility] Comment on above: Performed By: #### L 300.3900, L500.2500, L300.4310, L100.0100 #### [facility] [address] [place], [address] Eosinophils/100 WBC (Bld) 1.9 % Normal 0-5 [facility] Comment on above: Performed By: #### L 300.3900, L500.2500, L300.4310, L100.0100 #### [facility] [address] [place], [address] Erythrocyte distribution width (RBC) [Ratio] 12.0 % Normal 11.6-14.6 [facility] Comment on above: Performed By: #### L 300.3900, L500.2500, L300.4310, L100.0100 #### [facility] [address] [place], [address] Hematocrit (Bld) [Volume fraction] 41.4 % Normal 37-47 [facility] Comment on above: Performed By: #### L 300.3900, L500.2500, L300.4310, L100.0100 #### [facility] [address] [place], [address] Hemoglobin (Bld) [Mass/Vol] 14.7 g/dL Normal 12.0-15.0 [facility] Comment on above: Performed By: #### L 300.3900, L500.2500, L300.4310, L100.0100 #### [facility] [address] [place], [address] IG% 0.200 Normal 0.0-0.9 [facility] Comment on above: Result Comment: IG% - Immature Granulocytes (promyelocytes, myelocytes and metamyelocytes) > 1% indicates that a LEFT SHIFT is Present. Performed By: #### L 300.3900, L500.2500, L300.4310, L100.0100 #### [facility] [address] [place], [address] Lymphocytes/100 WBC (Bld) 24.1 % Normal 19-41 [facility] Comment on above: Performed By: #### L 300.3900, L500.2500, L300.4310, L100.0100 #### [facility] [address] [place], [address] MCH (RBC) [Entitic mass] 32.0 pg Normal 27.0-32.0 [facility] Comment on above: Performed By: #### L 300.3900, L500.2500, L300.4310, L100.0100 #### [facility] [address] [place], [address] MCHC (RBC) [Mass/Vol] 35.5 g/dL Normal 32-36 [facility] Comment on above: Performed By: #### L 300.3900, L500.2500, L300.4310, L100.0100 #### [facility] [address] [place], [address] MCV (RBC) [Entitic vol] 90.0 fL Normal 81-99 [facility] Comment on above: Performed By: #### L 300.3900, L500.2500, L300.4310, L100.0100 #### [facility] [address] [place], [address] Monocytes/100 WBC (Bld) 6.8 % Normal 0-10 [facility] Comment on above: Performed By: #### L 300.3900, L500.2500, L300.4310, L100.0100 #### [facility] [address] [place], [address] Neutrophils/100 WBC (Bld) 66.4 % Normal 47-70 [facility] Comment on above: Performed By: #### L 300.3900, L500.2500, L300.4310, L100.0100 #### [facility] [address] [place], [address] Nucleated RBC (Bld) [#/Vol] 0 10*3/uL Normal 0-5 [facility] Comment on above: Performed By: #### L 300.3900, L500.2500, L300.4310, L100.0100 #### [facility] [address] [place], [address] Platelet mean volume (Bld) [Entitic vol] 9.1 fL Normal 6.2-12.0 [facility] Comment on above: Performed By: #### L 300.3900, L500.2500, L300.4310, L100.0100 #### [facility] [address] [place], [address] Platelets (Bld) [#/Vol] 341 10*3/uL Normal 150-450 [facility] Comment on above: Performed By: #### L 300.3900, L500.2500, L300.4310, L100.0100 #### [facility] [address] [place], [address] RBC (Bld) [#/Vol] 4.60 10*6/uL Normal 4.2-5.4 [facility] Comment on above: Performed By: #### L 300.3900, L500.2500, L300.4310, L100.0100 #### [facility] [address] [place], [address] RDW SD 39.7 fl Normal 35.1-43.9 [facility] Comment on above: Performed By: #### L 300.3900, L500.2500, L300.4310, L100.0100 #### [facility] [address] [place], [address] WBC (Bld) [#/Vol] 6.5 10*3/uL Normal 4.4-11.0 [facility] Comment on above: Performed By: #### L 300.3900, L500.2500, L300.4310, L100.0100 #### [facility] [address] [place], [address] Chest 1 View (Portable)on Chest 1 View (Portable) [facility] [address] [place] [address] Chest 1 View (Portable) MR#: [id number] Acct: [id number] Name: PRISCILLA RAMOS (Estelita) Rep #: [id number] : 1955 F 69 From: Cuauhtemoc Rincon i, MD PCP: Dr. Emilee Condon MD Status: PRE ER Study: Chest 1 View (Portable) Date of Exam: 06/30/24 Exam# [id number] Ordering Dr: Waqas Barrow MD PROCEDURE: CHEST 1 VIEW (PORTABLE) REASON FOR EXAM: STROKE TECHNIQUE: Frontal view of the chest. COMPARISON: 04/16/2023. FINDINGS: The cardiac silhouette is enlarged, similar to prior examination. There are streaky changes at the lung bases, afam-xtltafc-vaib-rig ht. This may represent atelectasis versus scarring. No significant change since prior examination. There is no pneumothorax. There are no acute osseous abnormality is present. RAD/Chest 1 View (Portable) IMPRESSION: Bibasilar airspace opacities, eikk-buxyzzh-ayli-rig ht, most likely to represent atelectasis. Pneumonia to be ruled out clinically. There has been no significant change since prior examination. Reading Location: [id number] CC: Dr. Waqas Barrow MD; Dr. Emilee Condon MD Equipment Washer: Signed Normal [facility] Emergency Department Summary on 06-30-2024 Emergency Department Summary [facility] Medical Records Department [address] [place] [address] Emergency Department Summary 06/30/24 MR#: [id number] Acct: [id number] Name: PRISCILLA RAMOS) Rep #: [id number] : 1955 69 From: Waqas Barrow MD PCP: Dr. Emilee Condon MD Status:REG ER Location: ED HPI History of Present Illness Chief Complaint: Dizziness Informant: patient Onset/Context/Timing Onset: Days Context: Gradual Onset Timing: Intermittent Current Severity: Mild Maximum Severity: Mild Narrative Narrative: 69-year-old female history of hypothyroidism, hypertension, CAD. States she has had some intermittent nausea since Saturday. And what she describes as dizziness which is lightheadedness. No history of stroke or mini stroke. No weakness or numbness. No room spinning. No chest pain. No abdominal pain. No vomiting or diarrhea. No fever. Prior similar symptoms: No Recent Illness/Hospitalizati on: No PFSH PFSH Medical History Tiffany's disease Persistent depressive disorder Depression Osteoporosis BiPAP (biphasic positive airway pressure) dependence Chest pain Abnormal stress test Arthritis Essential hypertension Breast nodule Thyroid nodule Obesity Fibromyalgia Dysthymic disorder NELI (obstructive sleep apnea) Hypothyroidism Home Medications ???Medication ???Instructions ???Recorded ???Last Taken ???Type cyanocobalamin (vitamin B-12) 500 500 mcg sublingual DAILY 12/14/14 Unknown History mcg sublingual tablet multivitamin with folic acid 400 1 tab PO DAILY 12/14/14 Unknown Hi story mcg tablet (Thera) trazodone 50 mg tablet 25 mg PO QHS 12/14/14 Unknown Hist ory levothyroxine 25 mcg tablet 25 mcg PO DAILY 07/21/15 06/11/22 History biotin 2,500 mcg capsule 2,500 mcg PO DAILY 01/23/23 Unknow n History calcium 600 mg-D3 20 mcg-magnesium 1 tab PO DAILY 05/14/22 Unknown History 50 wv-Pd-mnxfiv-gonzalo-b oron tablet (Calcium 600-D3 Plus (mag-zinc)) cholecalciferol (vitamin D3) 25 2,000 unit PO QHS 05/14/22 Unknown History mcg (1,000 unit) tablet (Vitamin D3) gabapentin 400 mg capsule 800 mg PO QHS 05/14/22 Unknown His tory aspirin 81 mg tablet,delayed 81 mg PO DAILY 06/07/22 06/11/22 H istory release (Adult Aspirin Regimen) coenzyme Q10 50 mg capsule (Co 50 mg PO DAILY 12/31/22 Unknown Hi story Q-10) rosuvastatin 5 mg tablet 5 mg PO .3 x week 12/31/22 Unknown History bupropion HCl 150 mg 24 hr tablet, 150 mg PO DAILY #90 tabs 4 Unknown Rx extended release fluoxetine 40 mg capsule 40 mg PO DAILY #90 caps 02/03/24 U nknown Rx hydrochlorothiazide 25 mg tablet 25 mg PO DAILY #90 tabs 03/23/24 U nknown Rx losartan 100 mg tablet See Rx Instructions .Route 5 Unknown Rx .COMPLEX #90 tabs Allergy/AdvReac Type Severity Reaction Status Date / Time No Known Allergies Allergy Verified 06/30/24 16:59 Family History Mother CVA (cerebral vascular accident) Thyroid disorder Diabetes Father Kidney disease Cancer Surgical History History of foot surgery History of total right knee replacement (TKR) History of 2 sections History of herniorrhaphy History of laparoscopic cholecystectomy Social History Smoking Status: Never smoker alcohol intake: current alcohol intake frequency: 0-2 drinks per day Alcohol type: wine substance use type: does not use caffeine: Yes Type: coffee Number of servings: 2 ROS ROS ED ROS Narrative Lightheadedness. Nausea. Patient states she is under increasing stress because she recently had to put a 16-year-old pack to sleep. Constitutional Constitutional ED: Denies chills or fever(s) Eyes Eyes: Denies blurry vision ENT ENT ED: Denies ear pain Cardiovascular Cardiovascular: Denies chest pain Respiratory/Chest Respiratory/Chest: Denies cough or dyspnea Gastrointestinal Gastrointestinal: Denies abdominal pain Genitourinary Genitourinary ED: Denies dysuria or hematuria Musculoskeletal Musculoskeletal: Denies arthralgias Integumentary Denies abscess or Abrasions Neurologic Neurologic: Denies headache(s) Psychiatric Psychiatric: Reports anxiety Endocrine Endocrinology: Denies cold intolerance Hematologic/Lymphatic Hematologic/Lymphatic : Reports none Allergic/Immunologic Allergic/Immunologic ED: Denies mouth swelling, tongue swelling or urticaria EXAM Physical Exam Narrative Exam Narrative: Well-appearing 69-year-old female sitting upright in bed. Vital signs are stable afebrile. She does not look septic toxic or any distress. 2 family members at bedsid (more content not included)... Normal [facility] FOLATES,SERUM (FOLIC ACID)on 06-30-2024 FOLATES,SERUM 15.10 ng/mL Normal 4.60-34.80 [facility] Comment on above: Order Comment: N Result Comment: Hemo lysis, Results will be affected, Requires Recollection. Performed By: #### L 506.0200, L501.9520, L505.5000, L501.9985 ####[facility] [id number] [facility] [place], [address] H AND P Exam - Hospitaliston 06-30-2024 H&P Exam - Hospitalist [facility] Medical Records Department [address] [place] [address] H P Exam - Hospitalist 06/30/241 MR#: [id number] Acct: [id number] Name: PRISCILLA RAMOS (Estelita) Rep #: [id number] : 1955 69 From: Tomas Gerber DO PCP: Dr. Emilee Condon MD Status:ADM REI Location: [place] [address] HPI - General General Date of Admission: 06/30/24 Date of Service: 06/30/24 Chief Complaint: Dizziness and Ataxia. HPI Narrative PRISCILLA RAMOS, is a 69 F with a past medical history of essential hypertension; on losartan and hydrochlorothiazide, hyperlipidemia; on rosuvastatin 3 times per week, history of Tiffany's thyroiditis with subsequent hypothyroidism; on levothyroxine, morbid obesity; with BMI of 45.7 this admission, NELI; on BiPAP, history of CAD; on baby aspirin daily, history of diastolic dysfunction without CHF, history of claudication, history of COVID-19, history of fibromyalgia; on gabapentin, history of depression; on bupropion, trazodone and fluoxetine, history of laparoscopic cholecystectomy, history of hernia; s/p repair, remote history of 2 C-sections, family history of CVA, history of osteoporosis and OA; s/p right TKR who presents to [facility] ER complaining of dizziness and ataxia. Ms. Ramos reports her symptoms began approximately 2 days prior to admission on Friday, June 28, 2024 with intermittent dizziness and lightheadedness since that time as she was caring for her eleven 16-year-old dog who is in the process of dying causing her severe acute distress and causing her to drink more wine than she normally would. She also admits to associated nausea but she denies vomiting which caused her to recently increase her free water intake because she felt like she might be dehydrated. She then went to see one of her medical providers and they noted sharply elevated blood pressure and they encouraged her to come in for further evaluation and treatment, which she agreed to do after she went home and her blood pressure remains persistently elevated in the 170 mmHg systolic range with patient noticing a corresponding new mild dyspnea on exertion. She states her blood pressure has been very well-controlled on her current regimen and she usually does not have uncontrolled hypertension. She denies associated fever, chills, chest pain, shortness of breath, headache, slurred speech or other focal neurologic deficits but she was noted to be markedly ataxic upon her evaluation in the ER prompting ER physician to call hospitalist for admission. In the ER she underwent CT of the brain without contrast which showed no acute pathologic changes along with a chest x-ray that showed suspected atelectasis and unremarkable laboratory studies except for mild Hyponatremia of 130 mmol/L present on admission suspected to be due to Adverse Drug Reaction to hydrochlorothiazide which may be contributing to her symptoms of ataxia and dizziness as her previous baseline levels showed she is usually between 137 mmol/L and 141 mmol/L since 2019 complicated by clinical evidence of Uncontrolled Hypertension. She was then admitted to the PCU under observation status for ongoing care for status expected to be less than 2 midnights. [facility] Medical History Tiffany's disease Persistent depressive disorder Depression Osteoporosis BiPAP (biphasic positive airway pressure) dependence Chest pain Abnormal stress test Arthritis Essential hypertension Breast nodule Thyroid nodule Obesity Fibromyalgia Dysthymic disorder NELI (obstructive sleep apnea) Hypothyroidism Home Medications ???Medication ???Instructions ???Recorded ???Last Taken ???Type cyanocobalamin (vitamin B-12) 500 500 mcg sublingual DAILY 12/14/14 Unknown History mcg sublingual tablet multivitamin with folic acid 400 1 tab PO DAILY 12/14/14 Unknown Hi story mcg tablet (Thera) trazodone 50 mg tablet 25 mg PO QHS 12/14/14 Unknown Hist ory levothyroxine 25 mcg tablet 25 mcg PO DAILY 07/21/15 06/11/22 History biotin 2,500 mcg capsule 2,500 mcg PO DAILY 05/14/22 Unknow n History calcium 600 mg-D3 20 mcg-magnesium 1 tab PO DAILY 05/14/22 Unknown History 50 ja-Lo-lihazq-gonzalo-b oron tablet (Calcium 600-D3 Plus (mag-zinc)) cholecalciferol (vitamin D3) 25 2,000 unit PO QHS 05/14/22 Unknown History mcg (1,000 unit) tablet (Vitamin D3) gabapentin 400 mg capsule 800 mg PO QHS 05/14/22 Unknown His tory aspirin 81 mg tablet,delayed 81 mg PO DAILY 06/07/22 06/11/22 H istory release (Adult Aspirin Regimen) coenzyme Q10 50 mg capsule (Co 50 mg PO DAILY 12/31/22 Unknown Hi story Q-10) rosuvastatin 5 mg tablet 5 mg PO .3 x week 12/31/22 Unknown History bupropion HCl 150 mg 24 hr tablet, 150 mg PO DAILY #90 tabs 4 (more content not included)... Normal [facility] Hemoglobin A1con 06-30-2024 HbA1c (Bld) [Mass fraction] 5.8 % Normal <=5.6 [facility] Comment on above: Performed By: #### L 506.0200, L501.2146, L505.9038, L501.9985 ####[facility] [id number] [place], [address] Partial Thromboplast Timeon 06-30-2024 aPTT Coag (Bld) [Time] 24.7 s Normal 24.1-36.2 [facility] Comment on above: Performed By: #### L 300.3900, L500.2500, L300.4310, L100.0100 #### [facility] Laboratory [address] [place], [address] Prothrombin Time w/INRon INR Coag (PPP) [Relative time] 0.9 {INR} Normal [facility] Comment on above: Performed By: #### L 300.3900, L500.2500, L300.4310, L100.0100 #### [facility] [address] [place], [address] PT Coag (PPP) [Time] 12.3 s Normal 11.7-14.9 [facility] Comment on above: Performed By: #### L 300.3900, L500.2500, L300.4310, L100.0100 #### [facility] [address] [place], [address] Thyroid Stim Hormone (TSH)on 06-30-2024 TSH 1.210 uIU/mL Normal 0.300-4.200 [facility] Comment on above: Performed By: #### L 506.0200, L501.9520, L505.5000, L501.9985 ####[facility] [id number] [place], [address] CNOVon 06-26-2024 CNOV Normal [facility] CNOVon 06-15-2024 CNOV Normal [facility] HEMOGLOBIN A1C (POC)on 06-15 HbA1c (Bld) [Mass fraction] 5.8 % Abnormal 4.3 - 5.6 % [facility] Comment on above: Location:[facility], [address] [place], [address] Point of care (POC) Hemoglobin A1c (HGBA1C) testing is intended to assess glucose control and provide a management tool for patients known to have diabetes and their healthcare providers. Target HGBA1C levels may depend on specific clinical circumstances. POC HGBA1C is not intended for use as a diagnostic or screening test; laboratory-based testing should be used for diagnostic purposes. The following information is supplemental and may not be applicable to specific diabetes management situations: The POC device oracle ascp consultant provides a normal range of 4.2% to 6.5% for the HGBA1C POC test. However, the [place] [employer] guidelines indicate that patients with HGBA1C in the range of 5.7% to 6.4% are at increased risk for development of diabetes and that intervention by lifestyle modification may be beneficial. A HGBA1C level greater than or equal to 6.5% is considered diagnostic of diabetes, pending confirmatory testing. Use of HGBA1C testing to evaluate glucose control may not be appropriate for patients with hemoglobin variants or other conditions (e.g. anemia) that alter red blood cell lifespan. Interpretation and review of laboratory results Abnormal [facility] CBC panel Auto (Bld)on 06-10 Erythrocyte distribution width (RBC) [Ratio] 12.8 % Normal 11.5-15.0 [facility] Comment on above: Order Comment: Nayla mccarthy Type: BLOOD SPECIMENOrdering Facility: [facility] Address: [address] [place] [address] Performed By: #### 5 8410-2 ####[facility] [id number] [place] [address] [place] Hematocrit (Bld) [Volume fraction] 41.9 % Normal 36.0-46.0 [facility] Comment on above: Order Comment: Nayla mccarthy Type: BLOOD SPECIMENOrdering Facility: [facility] Address: [address] [place] [address] Performed By: #### 5 8410-2 ####[facility] [id number] [place] [address] [place] Hemoglobin (Bld) [Mass/Vol] 13.8 g/dL Normal 11.5-15.5 [facility] Comment on above: Order Comment: Speci men Type: BLOOD SPECIMENOrdering Facility: [facility] Address: [address] [place] [address] Performed By: #### 5 8410-2 ####[facility] [id number] [address] [place] MCH (RBC) [Entitic mass] 31.2 pg Normal 26.0-34.0 [facility] Comment on above: Order Comment: Speci men Type: BLOOD SPECIMENOrdering Facility: [facility] Address: [address] [place] [address] Performed By: #### 5 8410-2 ####[facility] [id number] [place] [address] [place] MCHC (RBC) [Mass/Vol] 32.9 g/dL Normal 30.5-36.0 [facility] Comment on above: Order Comment: Speci men Type: BLOOD SPECIMENOrdering Facility: [facility] Address: [address] [place] [address] Performed By: #### 5 8410-2 ####[facility] [id number] [place] [address] [place] MCV (RBC) [Entitic vol] 94.8 fL Normal 80.0-100.0 [facility] Comment on above: Order Comment: Speci men Type: BLOOD SPECIMENOrdering Facility: [facility] Address: [address] [place], [place] [address] Performed By: #### 5 8410-2 ####[facility] [id number] [place] [address] [place] Nucleated RBC (Bld) [#/Vol] 10*3/uL Normal <0.01 [facility] Comment on above: Order Comment: Speci men Type: BLOOD SPECIMENOrdering Facility: [facility] Address: [address] [place] [address] Performed By: #### 5 8410-2 ####[facility] JAKENCLU [id number] [place] [address] [place] Platelet mean volume (Bld) [Entitic vol] 9.0 fL Normal 9.0-12.7 [facility] Comment on above: Order Comment: Speci men Type: BLOOD SPECIMENOrdering Facility: [facility] Address: [address] [place] [address] Performed By: #### 5 8410-2 ####[facility]ITALNCKimmie [id number] [place] [address] [place] Platelets (Bld) [#/Vol] 313 10*3/uL Normal 150-400 [facility] Comment on above: Order Comment: Speci men Type: BLOOD SPECIMENOrdering Facility: [facility] Address: [address] [place] [address] Performed By: #### 5 8410-2 ####[facility]ITALNCA [id number] [place] [address] [place] RBC (Bld) [#/Vol] 4.42 10*6/uL Normal 3.90-5.20 [facility] Comment on above: Order Comment: Speci men Type: BLOOD SPECIMENOrdering Facility: [facility] Address: [address] [place] [address] Performed By: #### 5 8410-2 ####[facility]ITALNCL[facility] [id number] [place] [address] [place] WBC (Bld) [#/Vol] 5.81 10*3/uL Normal 3.70-11.00 [facility] Comment on above: Order Comment: Speci men Type: BLOOD SPECIMENOrdering Facility: [facility] Address: [address] [place] [address] Performed By: #### 5 8410-2 ####[facility] COLIN MILLTOWNCLIA [id number] [place] [address] [place] Comprehensive metabolic 2000 panelon 06-10-2024 Albumin [Mass/Vol] 4.3 g/dL Normal 3.9-4.9 [facility] Comment on above: Order Comment: Speci men Type: BLOOD SPECIMENOrdering Facility: [facility] Address: [address] [place] [address] Performed By: #### 2 4323-8 ####[facility] MILLTOWNCLIA [id number] [place] [address] [place] ALP [Catalytic activity/Vol] 90 U/L Normal 34-123 [facility] Comment on above: Order Comment: Speci men Type: BLOOD SPECIMENOrdering Facility: [facility] Address: [address] [place] [address] Performed By: #### 2 4323-8 ####[facility] MILLWNCLIA [id number] [address] [place] ALT [Catalytic activity/Vol] 21 U/L Normal 7-38 [facility] Comment on above: Order Comment: Speci men Type: BLOOD SPECIMENOrdering Facility: [facility] Address: [address] [place] [address] Performed By: #### 2 4323-8 ####[facility] MILLTOWNCLIA [id number] [place] [address] [place] Anion gap [Moles/Vol] 12 mmol/L Normal 8-15 [facility] Comment on above: Order Comment: Speci men Type: BLOOD SPECIMENOrdering Facility: [facility] Address: [address] [place] [address] Performed By: #### 2 4323-8 ####[facility] MILLTOWNCLIA [id number] [place] [address] [place] AST [Catalytic activity/Vol] 23 U/L Normal 13-35 [facility] Comment on above: Order Comment: Speci men Type: BLOOD SPECIMENOrdering Facility: [facility] Address: [address] [place] [address] Performed By: #### 2 4323-8 ####[facility] COLINKERBS MEMORIAL HOSPITALWNCLIA [id number] [place] [address] [place] Bilirubin [Mass/Vol] 0.5 mg/dL Normal 0.2-1.3 [facility] Comment on above: Order Comment: Speci men Type: BLOOD SPECIMENOrdering Facility: [facility] Address: [address] [place] [address] Performed By: #### 2 4323-8 ####[facility]ITALNCLIA [id number] [place] [address] [place] Calcium [Mass/Vol] 9.8 mg/dL Normal 8.5-10.2 [facility] Comment on above: Order Comment: Speci men Type: BLOOD SPECIMENOrdering Facility: [facility] Address: [address] [place] [address] Performed By: #### 2 4323-8 ####[facility]ITALNCLIA [id number] [place] [address] [place] Chloride [Moles/Vol] 98 mmol/L Normal 98-107 [facility] Comment on above: Order Comment: Speci men Type: BLOOD SPECIMENOrdering Facility: [facility] Address: [address] [place] [address] Performed By: #### 2 4323-8 ####[facility] MILLWNCLIA [id number] [place] [address] [place] CO2 [Moles/Vol] 26 mmol/L Normal 22-30 [facility] Comment on above: Order Comment: Speci men Type: BLOOD SPECIMENOrdering Facility: [facility] Address: [address] [place] [address] Performed By: #### 2 4323-8 ####[facility] NATALIERIDGEVIEW LE SUEUR MEDICAL CENTERKimmie [id number] [place] [address] [place] Creatinine [Mass/Vol] 0.65 mg/dL Normal 0.58-0.96 [facility] Comment on above: Order Comment: Speci men Type: BLOOD SPECIMENOrdering Facility: [facility] Address: [address] [place] [address] Performed By: #### 2 4323-8 ####[facility] [id number] [place] [address] [place] Creatinine and Glomerular filtration rate.predicted panel (S/P/Bld) 95 mL/min/1.73m??? Normal >=60 [facility] Comment on above: Order Comment: Speci men Type: BLOOD SPECIMENOrdering Facility: [facility] Address: [address] [place] [address] Result Comment: Angela mated Glomerular Filtration Rate (eGFR) is calculated using the 2020 CKD-EPI creatinine equation. This equation utilizes serum creatinine, sex, and age as parameters. The creatinine assay has traceable calibration to isotope dilution-mass spectrometry. Refer to KDIGO guidelines for clinical interpretation. In patients with unstable renal function, e.g. those with acute kidney injury, the eGFR may not accurately reflect actual GFR. Performed By: #### 2 4323-8 ####[facility]ITALNCLI [id number] [place] [address] [place] Glucose [Mass/Vol] 131 mg/dL High 74-99 [facility] Comment on above: Order Comment: Speci men Type: BLOOD SPECIMENOrdering Facility: [facility] Address: [address] [place] [address] Result Comment: The [place] Diabetes Association (ADA) provides guidance for cutoff values for fasting glucose and random glucose. The ADA defines fasting as no caloric intake for at least 8 hours. Fasting plasma glucose results between 100 to 125 mg/dL indicate increased risk for diabetes (prediabetes).Fasting plasma glucose results greater than or equal to 126 mg/dL meet the criteria for diagnosis of diabetes. In the absence of unequivocal hyperglycemia, results should be confirmed by repeat testing. In a patient with classic symptoms of hyperglycemia or hyperglycemic crisis, random plasma glucose results greater than or equal to 200 mg/dL meet the criteria for diagnosis of diabetes.Reference: Standards of Medical Care in Diabetes 2016, [place] [employer]. Diabetes Care. 2016.39(Suppl 1). Performed By: #### 2 4323-8 ####[facility] MILLTOWNCLIA [id number] [place] [address] [place] Potassium [Moles/Vol] 3.9 mmol/L Normal 3.7-5.1 [facility] Comment on above: Order Comment: Speci men Type: BLOOD SPECIMENOrdering Facility: [facility] Address: [address] [place] [address] Performed By: #### 2 4323-8 ####[facility] OHIOLIA [id number] [place] [address] [place] Protein [Mass/Vol] 7.2 g/dL Normal 6.3-8.0 [facility] Comment on above: Order Comment: Speci men Type: BLOOD SPECIMENOrdering Facility: [facility] Address: [address] [place] [address] Performed By: #### 2 4323-8 ####[facility] MILLWNCLIA [id number] [place] [address] [place] Sodium [Moles/Vol] 136 mmol/L Normal 136-144 [facility] [facility] Comment on above: Order Comment: Speci men Type: BLOOD SPECIMENOrdering Facility: [facility] Address: [address] [place], [place] [address] Performed By: #### 2 4323-8 ####[facility] MILLTOWNCLIA [id number] [place] [address] [place] Urea nitrogen [Mass/Vol] 15 mg/dL Normal 7-21 [facility] Comment on above: Order Comment: Speci men Type: BLOOD SPECIMENOrdering Facility: [facility] Address: [address] [place] [address] Performed By: #### 2 4323-8 ####[facility] [id number] [place] [address] [place] Lipid 1996 panelon 5 Cholesterol [Mass/Vol] 198 mg/dL Normal <200 [facility] Comment on above: Order Comment: Speci men Type: BLOOD SPECIMENOrdering Facility: [facility] Address: [address] [place] [address] Result Comment: <200 mg/dL, Desirable 200-239 mg/dL, Borderline high>239 mg/dL, High Performed By: #### 2 4331-1 ####[facility] LABCLIA [id number] [address] [id number] [address] [place]#### 33024-2 ####[facility] LABCLIA [id number] [place] [address] [place] Cholesterol in HDL [Mass/Vol] 75 mg/dL Normal >39 [facility] Comment on above: Order Comment: Speci men Type: BLOOD SPECIMENOrdering Facility: [facility] Address: [address] [place] [address] Result Comment: 40-5 9 mg/dL, Acceptable>59 mg/dL, High: Negative risk factor for coronary heart disease<40 mg/dL, Low: Positive risk factor for coronary heart disease Performed By: #### 2 4331-1 ####[facility] LABCLIA [id number] [place] [address] [facility] [id number] [place] [address] [place]#### 98947-9 ####[facility] LABIA [id number] [address] [place] Cholesterol in LDL [Mass/Vol] 100 mg/dL High <100 [facility] Comment on above: Order Comment: Speci men Type: BLOOD SPECIMENOrdering Facility: [facility] Address: [address] [place] [address] Result Comment: <100 mg/dL, Optimal 100-129 mg/dL, Near optimal/above optimal 130-159 mg/dL, Borderline high 160-189 mg/dL, High>189 mg/dL, Very highSecondary prevention optimal LDL Cholesterol levels are recommended to be < 70 mg/dL Performed By: #### 2 4331-1 ####[facility] LABCLIA [id number] [address] [id number] [address] [place]#### 50640-3 ####[facility] LABIA [id number] [address] [place] Cholesterol in LDL/Cholesterol in HDL [Mass ratio] 1.33 {ratio} Normal <2.54 [facility] Comment on above: Order Comment: Speci men Type: BLOOD SPECIMENOrdering Facility: [facility] Address: [address] [place] [address] Result Comment: Refe shayance:1. National Cholesterol Education Program ATP III Guideline At-A-Glance Quick Desk Reference: National Heart, Lung, and Blood Wishram. National Institutes of Health. 2001: NIH Publication No. 01-3305.2. An International Atherosclerosis Society position paper: global recommendations for the management of dyslipidemia: executive summary, Atherosclerosis. 2014: 232(2):410-413. Performed By: #### 2 4331-1 ####[facility] LABCLIA [id number] [address] [address] [facility] [id number] [place] [address] [place]#### 10595-1 ####[facility] LABCLIA [id number] [place] [address] [place] Cholesterol in VLDL [Mass/Vol] 23 mg/dL Normal <30 [facility] Comment on above: Order Comment: Speci men Type: BLOOD SPECIMENOrdering Facility: [facility] Address: [address] [place] [address] Performed By: #### 2 4331-1 ####[facility] LABCLIA [id number] [address] [id number] [place] [address] [place]#### 05641-1 ####[facility] LABCLIA [id number] [place] [address] [place] Cholesterol non HDL [Mass/Vol] 123 mg/dL Normal <130 [facility] Comment on above: Order Comment: Speci men Type: BLOOD SPECIMENOrdering Facility: [facility] Address: [address] [place] [address] Result Comment: <130 mg/dL, Optimal 130-159 mg/dL, Near optimal/above optimal 160-189 mg/dL, Borderline high 190-219 mg/dL, High>219 mg/dL, Very highSecondary prevention optimal non HDL Cholesterol levels are recommended to be <100 mg/dL Performed By: #### 2 4331-1 ####[facility] LABCLIA [id number] [address] [address] [facility] [id number] [place] [address] [place]#### 77543-5 ####[facility] LABCLIA [id number] [place] [address] [place] Cholesterol.total/Choles terol in HDL [Mass ratio] 2.64 {ratio} Normal <5.10 [facility] Comment on above: Order Comment: Speci men Type: BLOOD SPECIMENOrdering Facility: [facility] Address: [address] [place] [address] Performed By: #### 2 4331-1 ####[facility] LABCLIA [id number] [address] STATES OF [facility] [id number] [place] [address] [place]#### 90599-9 ####[facility] LABCLIA [id number] [place] [address] [place] FASTING TIME 12 hrs Normal [facility] Comment on above: Order Comment: Speci men Type: BLOOD SPECIMENOrdering Facility: [facility] Address: [address] [place] [address] Performed By: #### 2 4331-1 ####[facility] LABCLIA [id number] [address] STATES OF [facility] [id number] [place] [address] [place]#### 02216-6 ####[facility] LABCLIA [id number] [place] [address] [place] Triglyceride [Mass/Vol] 114 mg/dL Normal <150 [facility] Comment on above: Order Comment: Speci men Type: BLOOD SPECIMENOrdering Facility: [facility] Address: [address] [place] [address] Result Comment: <150 mg/dL, Normal 150-199 mg/dL, Borderline high 200-499 mg/dL, High>499 mg/dL, Very high Performed By: #### 2 4331-1 ####[facility] LABCLIA [id number] [address] OF [facility] [id number] [place] [address] [place]#### 15709-3 ####[facility] LABCLIA [id number] [place] [address] [place] Rheumatoid fact SerPl-aCncon 06-10-2024 Rheumatoid factor Qn 26 [IU]/mL High <16 [facility] Comment on above: Order Comment: Speci men Type: BLOOD SPECIMENOrdering Facility: [facility] Address: [address] [place] [address] Performed By: #### 2 4331-1 ####[facility] LABCLIA [id number] [address] OF [facility] [id number] [place] [address] [place]#### 34926-0 ####[facility] LABIA [id number] [address] [place] Bacteria Ur Culton Bacteria identified Cx Nom (U) ORGANISM ID: 1 <10,000 CFU/ml Normal urogenital kiara Normal [facility] Comment on above: Performed By: #### 6 30-4 ####[facility] LABCLIA [id number] [place] [address] [place] Urinalysis complete panel (U )on 05-04-2024 Bacteria LM.HPF (Urine sed) [#/Area] Negative Normal Negative [facility] Comment on above: Order Comment: Speci men Type: URINE SPECIMENOrdering Facility: [facility] Address: [address] [place] [address] Performed By: #### 2 4356-8 ####[facility] LABCLIA [id number] [place] [address] [place] Bilirubin Ql (U) Negative Normal Negative [facility] Comment on above: Order Comment: Speci men Type: URINE SPECIMENOrdering Facility: [facility] Address: [address] [place] [address] Performed By: #### 2 4356-8 ####[facility] LABCLIA [id number] [place] [address] [place] Clarity (Unsp spec) Clear Normal Clear [facility] Comment on above: Order Comment: Speci men Type: URINE SPECIMENOrdering Facility: [facility] Address: [address] [place] [address] Performed By: #### 2 4356-8 ####[facility] LABCLIA [id number] [place] [address] [place] Color (U) Yellow Normal Yellow [facility] Comment on above: Order Comment: Speci men Type: URINE SPECIMENOrdering Facility: [facility] Address: [address] [place] [address] Performed By: #### 2 4356-8 ####[facility] LABCLIA [id number] [place] [address] [place] Epithelial cells LM.HPF (Urine sed) [#/Area] None Seen Normal [facility] Comment on above: Order Comment: Speci men Type: URINE SPECIMENOrdering Facility: [facility] Address: [address] [place] [address] Performed By: #### 2 4356-8 ####[facility] LABCLIA [id number] [place] [address] [place] Glucose Test strip (U) [Mass/Vol] Negative Normal Negative [facility] Comment on above: Order Comment: Speci men Type: URINE SPECIMENOrdering Facility: [facility] Address: [address] [place] [address] Performed By: #### 2 4356-8 ####[facility] LABCLIA [id number] [place] [address] [place] Hemoglobin Ql (U) Negative Normal Negative [facility] Comment on above: Order Comment: Speci men Type: URINE SPECIMENOrdering Facility: [facility] Address: [address] [place] [address] Performed By: #### 2 4356-8 ####[facility] LABCLIA [id number] [place] [address] [place] Hyaline casts (Urine sed) [#/Area] 0 /[LPF] Normal 0 /LPF [facility] Comment on above: Order Comment: Speci men Type: URINE SPECIMENOrdering Facility: [facility] Address: [address] [place] [address] Performed By: #### 2 4356-8 ####[facility] LABCLIA [id number] [place] [address] [place] Ketones Ql (U) Negative Normal Negative [facility] Comment on above: Order Comment: Speci men Type: URINE SPECIMENOrdering Facility: [facility] Address: [address] [place] [address] Performed By: #### 2 4356-8 ####[facility] LABCLIA [id number] [place] [address] [place] Leukocyte esterase Test strip Ql (U) Trace Abnormal Negative [facility] Comment on above: Order Comment: Speci men Type: URINE SPECIMENOrdering Facility: [facility] Address: [address] [place] [address] Performed By: #### 2 4356-8 ####[facility] LABCLIA [id number] [place] [id number] [place] Nitrite Ql (U) Negative Normal Negative [facility] Comment on above: Order Comment: Speci men Type: URINE SPECIMENOrdering Facility: [facility] Address: [address] [place] [address] Performed By: #### 2 4356-8 ####[facility] LABIA [id number] [place] [address] [place] pH (U) 6.0 [pH] Normal <8.5 [facility] Comment on above: Order Comment: Speci men Type: URINE SPECIMENOrdering Facility: [facility] Address: [address] [place] [address] Performed By: #### 2 4356-8 ####[facility] LABIA [id number] [place] [address] [place] Protein (U) [Mass/Vol] Negative Normal Negative [facility] Comment on above: Order Comment: Speci men Type: URINE SPECIMENOrdering Facility: [facility] Address: [address] [place] [address] Performed By: #### 2 4356-8 ####[facility] LABIA [id number] [place] [address] [place] RBC LM.HPF (Urine sed) [#/Area] 0-2 /HPF Normal 0-2 /HPF [facility] Comment on above: Order Comment: Speci men Type: URINE SPECIMENOrdering Facility: [facility] Address: [address] [place] [address] Performed By: #### 2 4356-8 ####[facility] LABIA [id number] [place] [address] [place] Specific gravity (U) [Rel density] 1.010 Normal 1.005-1.030 [facility] Comment on above: Order Comment: Speci men Type: URINE SPECIMENOrdering Facility: [facility] Address: [address] [place] [address] Performed By: #### 2 4356-8 ####[facility] LABCLIA [id number] [place] [address] [place] Urobilinogen Ql (U) 0.2 EU/dL Normal 0.2-1.0 EU/dL [facility] Comment on above: Order Comment: Speci men Type: URINE SPECIMENOrdering Facility: [facility] Address: [address] [place] [address] Performed By: #### 2 4356-8 ####[facility] LABIA [id number] [place] [address] [place] WBC LM.HPF (Urine sed) [#/Area] 0-5 /HPF Normal 0-5 /HPF [facility] Comment on above: Order Comment: Speci men Type: URINE SPECIMENOrdering Facility: [facility] Address: [address] [place] [address] Performed By: #### 2 4356-8 ####[facility] LABCLIA [id number] [place] [address] [place] Bacteria Ur Culton Bacteria identified Cx Nom (U) Abnormal [facility] Comment on above: Performed By: #### 6 30-4 ####[facility] LABIA [id number] [place] [address] [place] CNOVon 03-31-2024 CNOV Normal [facility] CNPNon 03-31-2024 CNPN Normal [facility] UA DIP, URINE (POC)on 2023 BILIRUBIN UA (POCT) Negative Negative [facility] CLARITY UA (POCT) Cloudy [facility] COLOR UA (POCT) Dark yellow [facility] GLUCOSE UA (POCT) Negative Negative mg/dL [facility] Hemoglobin Ql (U) Moderate Abnormal Negative [facility] Interpretation and review of laboratory results Abnormal [facility] KETONE UA (POCT) Negative Negative mg/dL [facility] LEUKOCYTES UA (POCT) Moderate Abnormal Negative [facility] NITRITE UA (POCT) Negative Negative [facility] PH UA (POCT) 7.0 4.5 - 8.0 [facility] Protein Ql (U) Negative Negative mg/dL [facility] SPECIFIC GRAVITY UA (POCT) 1.015 1.005 - 1.030 [facility] UROBILINOGEN UA (POCT) 0.2 Kristy l E.U./dL [facility] Location:[address], [place], [place], [address] [place] [address] [facility] URINALYSIS, REFLEX MICROSCOP ICon 03-27-2024 Bilirubin Ql (U) Negative Normal Negative [facility] Comment on above: Order Comment: Speci men Type: URINE SPECIMENOrdering Facility: [facility] Address: [address] [place] [address] Performed By: #### L [id number] ####[facility] LABCLIA [id number] [place] [address] [place] Clarity (Unsp spec) Clear Normal Clear [facility] Comment on above: Order Comment: Speci men Type: URINE SPECIMENOrdering Facility: [facility] Address: [address] [place] [address] Performed By: #### L [id number] ####[facility] LABCLIA [id number] [place] [address] [place] Color (U) Yellow Normal Yellow [facility] Comment on above: Order Comment: Speci men Type: URINE SPECIMENOrdering Facility: [facility] Address: [address] [place] [address] Performed By: #### L [id number] ####[facility] LABIA [id number] [place] [id number] [place] Glucose Test strip (U) [Mass/Vol] Negative Normal Negative [facility] Comment on above: Order Comment: Speci men Type: URINE SPECIMENOrdering Facility: [facility] Address: [address] [place] [address] Performed By: #### L [id number] ####[facility] LABCLIA [id number] [place] [address] [place] Hemoglobin Ql (U) Negative Normal Negative [facility] Comment on above: Order Comment: Speci men Type: URINE SPECIMENOrdering Facility: [facility] Address: [address] [place] [address] Performed By: #### L [id number] ####[facility] LABCLIA [id number] [place] [address] [place] Ketones Ql (U) Negative Normal Negative [facility] Comment on above: Order Comment: Speci men Type: URINE SPECIMENOrdering Facility: [facility] Address: [address] [place] [address] Performed By: #### L [id number] ####[facility] LABCLIA [id number] [place] [address] [place] Leukocyte esterase Test strip Ql (U) Negative Normal Negative [facility] Comment on above: Order Comment: Speci men Type: URINE SPECIMENOrdering Facility: [facility] Address: [address] [place] [address] Performed By: #### L [id number] ####[facility] LABCLIA [id number] [place] [address] [place] Nitrite Ql (U) Negative Normal Negative [facility] Comment on above: Order Comment: Speci men Type: URINE SPECIMENOrdering Facility: [facility] Address: [address] [place] [address] Performed By: #### L [id number] ####[facility] LABCLIA [id number] [place] [address] [place] pH (U) 6.5 [pH] Normal <8.5 [facility] Comment on above: Order Comment: Speci men Type: URINE SPECIMENOrdering Facility: [facility] Address: [address] [place] [address] Performed By: #### L [id number] ####[facility] LABCLIA [id number] [place] [address] [place] Protein (U) [Mass/Vol] Negative Normal Negative [facility] Comment on above: Order Comment: Speci men Type: URINE SPECIMENOrdering Facility: [facility] Address: [address] [place] [address] Performed By: #### L [id number] ####[facility] LABIA [id number] [place] [address] [place] Specific gravity (U) [Rel density] 1.016 Normal 1.005-1.030 [facility] Comment on above: Order Comment: Speci men Type: URINE SPECIMENOrdering Facility: [facility] Address: [address] [place] [address] Performed By: #### L [id number] ####[facility] LABIA [id number] [place] [address] [place] Urobilinogen Ql (U) 0.2 EU/dL Normal 0.2-1.0 EU/dL [facility] Comment on above: Order Comment: Speci men Type: URINE SPECIMENOrdering Facility: [facility] Address: [address] [place] [address] Performed By: #### L [id number] ####[facility] LABIA [id number] [place] [address] [place] CNTHERAPYon 03-24-2024 CNTHERAPY Normal [facility] 25(OH)D3 SerPl-mCncon 2023 25-hydroxyvitamin D3 [Mass/Vol] 36.4 ng/mL Normal 31.0-80.0 [facility] Comment on above: Order Comment: Speci men Type: BLOOD SPECIMENOrdering Facility: [facility] Address: [address] [place] [address] Result Comment: Clas sification of 25 [place] Vitamin D status:Deficiency/Insufficiency: < or = 30 ng/ml.Sufficiency/Optimal Levels: 31-80 ng/mLToxicity: > 100 ng/mL.Test performed by chemiluminescent immunoassay. Performed By: #### 1 989-3 ####[facility] LABCLIA [id number] [place] [address] [place] MR/BMS.BPon 03-23-2024 MR/BMS.BP [address], [address] [place] [address] OFFICE VISIT Date of Service: 03/23/24 MR#: [id number] Acct: [id number] Name: PRISCILLA RAMOS (Estelita) Rep #: [id number] : 1955 Provider: Dr. Tl Zhang se, DO Age/Sex: 69/F Location: [facility].BP Status: Signed Intake Vital Signs 12/12/23 09:03 03/23/24 11:06 Height 5 ft 5 in 5 ft 5 in BP 146/84 H Blood Pressure Location Rt brachial Position Sitting Respiration 16 Pulse 85 Pulse Source Monitor BP Intake Visit Reasons: 3-4 MFU Accompanied by: Self Allergies No Known Allergies Allergy (Verified 03/23/24 11:08) Medications ???Medication ???Instructions ???Recorded ???Confirmed ???Type colostrum, bovine 500 mg capsule 1,000 mg PO BID 12/14/14 03/23/24 History cyanocobalamin (vitamin B-12) 500 500 mcg sublingual DAILY 12/14/14 03/23/24 History mcg sublingual tablet multivitamin with folic acid 400 1 tab PO DAILY 12/14/14 03/23/24 History mcg tablet (Thera) trazodone 50 mg tablet 50 mg PO QHS 12/14/14 03/23/24 History levothyroxine 25 mcg tablet 25 mcg PO DAILY 07/21/15 03/23/24 History biotin 2,500 mcg capsule 2,500 mcg PO DAILY 05/14/22 03/23/24 History calcium 600 mg-D3 20 mcg-magnesium 1 tab PO DAILY 05/14/22 03/23/24 History 50 oe-Pl-bwwfrx-gonzalo-b oron tablet (Calcium 600-D3 Plus (mag-zinc)) cholecalciferol (vitamin D3) 25 2,000 unit PO DAILY 05/14/22 03/23/24 History mcg (1,000 unit) tablet (Vitamin D3) gabapentin 400 mg capsule 800 mg PO QHS 05/14/22 03/23/24 History aspirin 81 mg tablet,delayed 81 mg PO DAILY 06/07/22 03/23/24 History release (Adult Aspirin Regimen) coenzyme Q10 50 mg capsule (Co 50 mg PO DAILY 12/31/22 03/23/24 History Q-10) rosuvastatin 5 mg tablet 5 mg PO .3 x week 12/31/22 03/23/24 History losartan 100 mg tablet See Rx Instructions .Route 05/17/23 03/23/24 Rx .COMPLEX #90 tabs bupropion HCl 150 mg 24 hr tablet, 150 mg PO DAILY #90 tabs 12/12/23 03/23/24 Rx extended release fluoxetine 40 mg capsule 40 mg PO DAILY #90 caps 02/03/24 03/23/24 Rx hydrochlorothiazide 25 mg tablet 25 mg PO DAILY #90 tabs 03/23/24 Rx Have you fallen in the past year?: Yes PFSH Medical History Tiffany's disease Persistent depressive disorder Depression Osteoporosis BiPAP (biphasic positive airway pressure) dependence Chest pain Abnormal stress test Arthritis Essential hypertension Breast nodule Thyroid nodule Obesity Fibromyalgia Dysthymic disorder NELI (obstructive sleep apnea) Hypothyroidism Surgical History History of foot surgery History of total right knee replacement (TKR) History of 2 sections History of herniorrhaphy History of laparoscopic cholecystectomy Family History Mother CVA (cerebral vascular accident) Thyroid disorder Diabetes Father Kidney disease Cancer Social History Smoking Status: Never smoker alcohol intake: current alcohol intake frequency: 0-2 drinks per day Alcohol type: wine substance use type: does not use caffeine: Yes Type: coffee Number of servings: 2 HPI History of Present Illness History provided by: patient HPI: Priscilla Ramos is a 69 year old female who presents today for follow up evaluation. Patient reports to going to son and daughter in laws for Thanksgiving. Overall, has been stressed. 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 Continues to have numbness in her left leg. Did have an epidural injection which helped, but has seemed to just start losing efficacy. Fell yesterday because of this. Denies having hit her head. Did do a short course of physical therapy. Feels like she sleep largely well. Is interested in possibly utilizing a medication for weight loss. Has gained weight in recent past, but appetite is not increased. Her dogs health has been failing. Denies SI/HI or AVH. Review of Systems Constitutional Denies: fever(s), chills, change in weight or fatigue Eyes Denies: change in vision or blurry vision Ears, Nose, Mouth, Throat Denies: throat pain, neck pain or change in hearing Cardiovascular Denies: chest pain, palpitations or dyspnea Respiratory Denies: dyspnea, cough or wheezing Gastrointestinal Denies: abdominal pain, nausea, vomiting, diarrhea or constipation Genitourinary Denies: dysuria or urinary frequency Musculoskeletal Reports: back pain and joint pain; Denies: neck pain or muscle weakness Integumentary/Breast Denies: rash or new lesions Neurological Reports: numbn (more content not included)... Normal [facility] T3Free SerPl-mCncon 03-23-20 24 Free T3 [Mass/Vol] 3.0 pg/mL Normal 2.3-4.1 [facility] Comment on above: Order Comment: Speci men Type: BLOOD SPECIMENOrdering Facility: [facility] Address: [address] [place] [address] Performed By: #### 3 016-3, 3051-0, 3024-7 ####[facility] LABCLIA [id number] [place] [address] [place] T4 Free SerPl-mCncon 024 Free T4 [Mass/Vol] 1.5 ng/dL Normal 0.9-1.7 [facility] Comment on above: Order Comment: Speci men Type: BLOOD SPECIMENOrdering Facility: [facility] Address: [address] [place] [address] Performed By: #### 3 016-3, 3051-0, 302-7 ####[facility] LABCLIA [id number] [place] [address] [place] TSH SerPl-aCncon 03-23-2024 TSH Qn 0.959 m[IU]/L Normal 0.270-4.200 [facility] Comment on above: Order Comment: Speci men Type: BLOOD SPECIMENOrdering Facility: [facility] Address: [address] [place] [address] Performed By: #### 3 016-3, 305-0, 7 ####[facility] LABIA [id number] [place] [address] [place] Urinalysis complete panel (U )on 03-23-2024 BACTERIA UL 1176.0 uL High Negative [facility] Comment on above: Order Comment: Speci men Type: URINE SPECIMENOrdering Facility: [facility] Address: [address] [place] [address] Performed By: #### 2 4356-8 ####[facility] LABIA [id number] [place] [address] [place] Bilirubin Ql (U) Negative Normal Negative [facility] Comment on above: Order Comment: Speci men Type: URINE SPECIMENOrdering Facility: [facility] Address: [address] [place] [address] Performed By: #### 2 4356-8 ####[facility] LABIA [id number] [place] [address] [place] Clarity (Unsp spec) Clear Normal Clear [facility] Comment on above: Order Comment: Speci men Type: URINE SPECIMENOrdering Facility: [facility] Address: [address] [place] [address] Performed By: #### 2 4356-8 ####[facility] LABCLIA [id number] [place] [address] [place] Color (U) Yellow Normal Yellow [facility] Comment on above: Order Comment: Speci men Type: URINE SPECIMENOrdering Facility: [facility] Address: [address] [place] [address] Performed By: #### 2 4356-8 ####[facility] LABCLIA [id number] [place] [address] [place] Epithelial cells LM.HPF (Urine sed) [#/Area] Moderate Normal [facility] Comment on above: Order Comment: Speci men Type: URINE SPECIMENOrdering Facility: [facility] Address: [address] [place] [address] Performed By: #### 2 4356-8 ####[facility] LABCLIA [id number] [place] [address] [place] Glucose Test strip (U) [Mass/Vol] Negative Normal Negative [facility] Comment on above: Order Comment: Speci men Type: URINE SPECIMENOrdering Facility: [facility] Address: [address] [place] [address] Performed By: #### 2 4356-8 ####[facility] LABCLIA [id number] [place] [address] [place] Hemoglobin Ql (U) Negative Normal Negative [facility] Comment on above: Order Comment: Speci men Type: URINE SPECIMENOrdering Facility: [facility] Address: [address] [place] [address] Performed By: #### 2 4356-8 ####[facility] LABCLIA [id number] [place] [address] [place] Hyaline casts (Urine sed) [#/Area] 0 /[LPF] Normal 0 /LPF [facility] Comment on above: Order Comment: Speci men Type: URINE SPECIMENOrdering Facility: [facility] Address: [address] [place] [address] Performed By: #### 2 4356-8 ####[facility] LABCLIA [id number] [place] [address] [place] Ketones Ql (U) Negative Normal Negative [facility] Comment on above: Order Comment: Speci men Type: URINE SPECIMENOrdering Facility: [facility] Address: [address] [place] [address] Performed By: #### 2 4356-8 ####[facility] LABCLIA [id number] [place] [address] [place] Leukocyte esterase Test strip Ql (U) 1+ Abnormal Negative [facility] Comment on above: Order Comment: Speci men Type: URINE SPECIMENOrdering Facility: [facility] Address: [address] [place] [address] Performed By: #### 2 4356-8 ####[facility] LABCLIA [id number] [place] [address] [place] Nitrite Ql (U) Negative Normal Negative [facility] Comment on above: Order Comment: Speci men Type: URINE SPECIMENOrdering Facility: [facility] Address: [address] [place] [address] Performed By: #### 2 4356-8 ####[facility] LABIA [id number] [place] [address] [place] pH (U) 6.0 [pH] Normal <8.5 [facility] Comment on above: Order Comment: Speci men Type: URINE SPECIMENOrdering Facility: [facility] Address: [address] [place] [address] Performed By: #### 2 4356-8 ####[facility] LABCLIA [id number] [place] [address] [place] Protein (U) [Mass/Vol] Negative Normal Negative [facility] Comment on above: Order Comment: Speci men Type: URINE SPECIMENOrdering Facility: [facility] Address: [address] [place] [address] Performed By: #### 2 4356-8 ####[facility] LABCLIA [id number] [place] [address] [place] RBC LM.HPF (Urine sed) [#/Area] 0-2 /HPF Normal 0-2 /HPF [facility] Comment on above: Order Comment: Speci men Type: URINE SPECIMENOrdering Facility: [facility] Address: [address] [place] [address] Performed By: #### 2 4356-8 ####[facility] LABIA [id number] [place] [address] [place] Specific gravity (U) [Rel density] 1.017 Normal 1.005-1.030 [facility] Comment on above: Order Comment: Speci men Type: URINE SPECIMENOrdering Facility: [facility] Address: [address] [place] [address] Performed By: #### 2 4356-8 ####[facility] LABIA [id number] [place] [address] [place] Urobilinogen Ql (U) 0.2 EU/dL Normal 0.2-1.0 EU/dL [facility] Comment on above: Order Comment: Speci men Type: URINE SPECIMENOrdering Facility: [facility] Address: [address] [place] [address] Performed By: #### 2 4356-8 ####[facility] LABCLIA [id number] [place] [address] [place] WBC LM.HPF (Urine sed) [#/Area] 6-10 /HPF Abnormal 0-5 /HPF [facility] Comment on above: Order Comment: Speci men Type: URINE SPECIMENOrdering Facility: [facility] Address: [address] [place] [address] Performed By: #### 2 4356-8 ####[facility] LABCLIA [id number] [place] [id number] [place] No Panel Informationon 03-20 IMPRESSION: Minimal active synovitis involving the right third PIP, left second and third MCP joints and right wrist. No tenosynovitis of the hand or wrist. Equipment Washer: AMIE Transcribe Date/Time: Mar 20 2024 2:56P Dictated by : ERIKA PRASAD MD This examination was interpreted and the report reviewed and electronically signed by: ERIKA PRASAD MD on Mar 20 2024 3:48PM [facility] DIVISION OF RADIOLOGY Radiology Study observation (narrative) [facility] No Panel InformationOrdered By: Ccf Provider on 03-20-2024 [facility] US HAND/WRIST SYNOVIAL SCREE N LTon 03-20-2024 US HAND/WRIST SYNOVIAL SCREEN LT Normal [facility] US HAND/WRIST SYNOVIAL SCREE N RTon 03-20-2024 US HAND/WRIST SYNOVIAL SCREEN RT Normal [facility] US Upper extremity - lefton 03-20-2024 * * *Final Report* * * DATE OF EXAM: Mar 20 2024 2:00PM AFU 1198 - US HAND/WRIST SYNOVIAL SCREEN LT / PROCEDURE REASON: multiple diagnoses * * * * Physician Interpretation * * * * MSK_US SYNOVITIS SCREENING ULTRASOUND OF THE HANDS AND WRISTS: CLINICAL INFORMATION: Bilateral hand and wrist pain. TECHNIQUE: Fritz-scale, real-time ultrasound of both the right and left hand and wrist synovium and tenosynovium was performed with power Doppler examination. Images were saved to the permanent image archive. COMPARISON: X-ray 08/28/2023. FINDINGS: RIGHT SIDE: RIGHT MCP AND PIP JOINT SYNOVIUM: 2ND MCP: Hypertrophy: Moderate. Power Doppler: None. 2ND PIP: Hypertrophy: Minimal. Power Doppler: None. 3RD MCP: Hypertrophy: Moderate. Power Doppler: None. 3RD PIP: Hypertrophy: Moderate. Power Doppler: Minimal. 4TH MCP: Hypertrophy: Minimal. Power Doppler: None. 4TH PIP: Hypertrophy: None. Power Doppler: None. 5TH MCP: Hypertrophy: Minimal. Power Doppler: None. 5TH PIP: Hypertrophy: Minimal. Power Doppler: None. RIGHT EXTENSOR AND FLEXOR TENOSYNOVIUM: 2ND Digit Flexor: Hypertrophy: None. Power Doppler: None. 2ND Digit Extensor: Hypertrophy: None. Power Doppler: None. 3RD Digit Flexor: Hypertrophy: None. Power Doppler: None. 3RD Digit Extensor: Hypertrophy: None. Power Doppler: None. 4TH Digit Flexor: Hypertrophy: None. Power Doppler: None. 4TH Digit Extensor: Hypertrophy: None. Power Doppler: None. 5TH Digit Flexor: Hypertrophy: None. Power Doppler: None. 5TH Digit Extensor: Hypertrophy: None. Power Doppler: None. CARPUS Synovitis: Hypertrophy: Minimal. Power Doppler: Minimal. OTHER: None. LEFT SIDE: LEFT MCP AND PIP JOINT SYNOVIUM: 2ND MCP: Hypertrophy: Minimal. Power Doppler: Minimal. 2ND PIP: Hypertrophy: None. Power Doppler: None. 3RD MCP: Hypertrophy: Minimal. Power Doppler: Minimal. 3RD PIP: Hypertrophy: None. Power Doppler: None. 4TH MCP: Hypertrophy: Minimal. Power Doppler: None. 4TH PIP: Hypertrophy: None. Power Doppler: None. 5TH MCP: Hypertrophy: Minimal. Power Doppler: None. 5TH PIP: Hypertrophy: None. Power Doppler: None. LEFT EXTENSOR AND FLEXOR TENOSYNOVIUM: 2ND Digit Flexor: Hypertrophy: None. Power Doppler: None. 2ND Digit Extensor: Hypertrophy: None. Power Doppler: None. 3RD Digit Flexor: Hypertrophy: None. Power Doppler: None. 3RD Digit Extensor: Hypertrophy: None. Power Doppler: None. 4TH Digit Flexor: Hypertrophy: None. Power Doppler: None. 4TH Digit Extensor: Hypertrophy: None. Power Doppler: None. 5TH Digit Flexor: Hypertrophy: None. Power Doppler: None. 5TH Digit Extensor: Hypertrophy: None. Power Doppler: None. CARPUS Synovitis: Hypertrophy: None. Power Doppler: None. OTHER: None. DIVISION OF RADIOLOGY Provider, [facility] - 03/20/2024 * * *Final Report* * * DATE OF EXAM: Mar 20 2024 2:00PM AFU 1198 - US HAND/WRIST SYNOVIAL SCREEN LT / PROCEDURE REASON: multiple diagnoses * * * * Physician Interpretation * * * * MSK_US SYNOVITIS SCREENING ULTRASOUND OF THE HANDS AND WRISTS: CLINICAL INFORMATION: Bilateral hand and wrist pain. TECHNIQUE: Fritz-scale, real-time ultrasound of both the right and left hand and wrist synovium and tenosynovium was performed with power Doppler examination. Images were saved to the permanent image archive. COMPARISON: X-ray 08/28/2023. FINDINGS: RIGHT SIDE: RIGHT MCP AND PIP JOINT SYNOVIUM: 2ND MCP: Hypertrophy: Moderate. Power Doppler: None. 2ND PIP: Hypertrophy: Minimal. Power Doppler: None. 3RD MCP: Hypertrophy: Moderate. Power Doppler: None. 3RD PIP: Hypertrophy: Moderate. Power Doppler: Minimal. 4TH MCP: Hypertrophy: Minimal. Power Doppler: None. 4TH PIP: Hypertrophy: None. Power Doppler: None. 5TH MCP: Hypertrophy: Minimal. Power Doppler: None. 5TH PIP: Hypertrophy: Minimal. Power Doppler: None. RIGHT EXTENSOR AND FLEXOR TENOSYNOVIUM: 2ND Digit Flexor: Hypertrophy: None. Power Doppler: None. 2ND Digit Extensor: Hypertrophy: None. Power Doppler: None. 3RD Digit Flexor: Hypertrophy: None. Power Doppler: None. 3RD Digit Extensor: Hypertrophy: None. Power Doppler: None. 4TH Digit Flexor: Hypertrophy: None. Power Doppler: None. 4TH Digit Extensor: Hypertrophy: None. Power Doppler: None. 5TH Digit Flexor: Hypertrophy: None. Power Doppler: None. 5TH Digit Extensor: Hypertrophy: None. Power Doppler: None. CARPUS Synovitis: Hypertrophy: Minimal. Power Doppler: Minimal. OTHER: None. LEFT SIDE: LEFT MCP AND PIP JOINT SYNOVIUM: 2ND MCP: Hypertrophy: Minimal. Power Doppler: Minimal. 2ND PIP: Hypertrophy: None. Power Doppler: None. 3RD MCP: Hypertrophy: Minimal. Power Doppler: Minimal. 3RD PIP: Hypertrophy: None. Power Doppler: None. 4TH MCP: Hypertrophy: Minimal. Power Doppler: None. 4TH PIP: Hypertrophy: None. Power Doppler: None. 5TH MCP: Hypertrophy: Minimal. Power Doppler: None. 5TH PIP: Hypertrophy: None. Power Doppler: None. LEFT EXTENSOR AND FLEXOR TENOSYNOVIUM: 2ND Digit Flexor: Hypertrophy: None. Power Doppler: None. 2ND Digit Extensor: Hypertrophy: None. Power Doppler: None. 3RD Digit Flexor: Hypertrophy: None. Power Doppler: None. 3RD Digit Extensor: Hypertrophy: None. Power Doppler: None. 4TH Digit Flexor: Hypertrophy: None. Power Doppler: None. 4TH Digit Extensor: Hypertrophy: None. Power Doppler: None. 5TH Digit Flexor: Hypertrophy: None. Power Doppler: None. 5TH Digit Extensor: Hypertrophy: None. Power Doppler: None. CARPUS Synovitis: Hypertrophy: None. Power Doppler: None. OTHER: None. IMPRESSION IMPRESSION: Minimal active synovitis involving the right third PIP, left second and third MCP joints and right wrist. No tenosynovitis of the hand or wrist. Equipment Washer: PSCB Transcribe Date/Time: Mar 20 2024 2:56P Dictated by : ERIKA PRASAD MD This examination was interpreted and the report reviewed and electronically signed by: ERIKA PRASAD MD on Mar 20 2024 3:48PM EST [facility] US Upper extremity - righton 03-20-2024 * * *Final Report* * * DATE OF EXAM: Mar 20 2024 2:55PM AFU 1197 - US HAND/WRIST SYNOVIAL SCREEN RT / PROCEDURE REASON: multiple diagnoses * * * * Physician Interpretation * * * * MSK_US SYNOVITIS SCREENING ULTRASOUND OF THE HANDS AND WRISTS: CLINICAL INFORMATION: Bilateral hand and wrist pain. TECHNIQUE: Fritz-scale, real-time ultrasound of both the right and left hand and wrist synovium and tenosynovium was performed with power Doppler examination. Images were saved to the permanent image archive. -2019 COMPARISON: X-ray 08/28/2023. FINDINGS: RIGHT SIDE: RIGHT MCP AND PIP JOINT SYNOVIUM: 2ND MCP: Hypertrophy: Moderate. Power Doppler: None. 2ND PIP: Hypertrophy: Minimal. Power Doppler: None. 3RD MCP: Hypertrophy: Moderate. Power Doppler: None. 3RD PIP: Hypertrophy: Moderate. Power Doppler: Minimal. 4TH MCP: Hypertrophy: Minimal. Power Doppler: None. 4TH PIP: Hypertrophy: None. Power Doppler: None. 5TH MCP: Hypertrophy: Minimal. Power Doppler: None. 5TH PIP: Hypertrophy: Minimal. Power Doppler: None. RIGHT EXTENSOR AND FLEXOR TENOSYNOVIUM: 2ND Digit Flexor: Hypertrophy: None. Power Doppler: None. 2ND Digit Extensor: Hypertrophy: None. Power Doppler: None. 3RD Digit Flexor: Hypertrophy: None. Power Doppler: None. 3RD Digit Extensor: Hypertrophy: None. Power Doppler: None. 4TH Digit Flexor: Hypertrophy: None. Power Doppler: None. 4TH Digit Extensor: Hypertrophy: None. Power Doppler: None. 5TH Digit Flexor: Hypertrophy: None. Power Doppler: None. 5TH Digit Extensor: Hypertrophy: None. Power Doppler: None. CARPUS Synovitis: Hypertrophy: Minimal. Power Doppler: Minimal. OTHER: None. LEFT SIDE: LEFT MCP AND PIP JOINT SYNOVIUM: 2ND MCP: Hypertrophy: Minimal. Power Doppler: Minimal. 2ND PIP: Hypertrophy: None. Power Doppler: None. 3RD MCP: Hypertrophy: Minimal. Power Doppler: Minimal. 3RD PIP: Hypertrophy: None. Power Doppler: None. 4TH MCP: Hypertrophy: Minimal. Power Doppler: None. 4TH PIP: Hypertrophy: None. Power Doppler: None. 5TH MCP: Hypertrophy: Minimal. Power Doppler: None. 5TH PIP: Hypertrophy: None. Power Doppler: None. LEFT EXTENSOR AND FLEXOR TENOSYNOVIUM: 2ND Digit Flexor: Hypertrophy: None. Power Doppler: None. 2ND Digit Extensor: Hypertrophy: None. Power Doppler: None. 3RD Digit Flexor: Hypertrophy: None. Power Doppler: None. 3RD Digit Extensor: Hypertrophy: None. Power Doppler: None. 4TH Digit Flexor: Hypertrophy: None. Power Doppler: None. 4TH Digit Extensor: Hypertrophy: None. Power Doppler: None. 5TH Digit Flexor: Hypertrophy: None. Power Doppler: None. 5TH Digit Extensor: Hypertrophy: None. Power Doppler: None. CARPUS Synovitis: Hypertrophy: None. Power Doppler: None. OTHER: None. DIVISION [facility]OLOGY [facility] * * *Final Report* * * DATE OF EXAM: Mar 20 2024 2:55PM AFU 1197 - US HAND/WRIST SYNOVIAL SCREEN RT / PROCEDURE REASON: multiple diagnoses * * * * Physician Interpretation * * * * MSK_US SYNOVITIS SCREENING ULTRASOUND OF THE HANDS AND WRISTS: CLINICAL INFORMATION: Bilateral hand and wrist pain. TECHNIQUE: Fritz-scale, real-time ultrasound of both the right and left hand and wrist synovium and tenosynovium was performed with power Doppler examination. Images were saved to the permanent image archive. -2019 COMPARISON: X-ray 08/28/2023. FINDINGS: RIGHT SIDE: RIGHT MCP AND PIP JOINT SYNOVIUM: 2ND MCP: Hypertrophy: Moderate. Power Doppler: None. 2ND PIP: Hypertrophy: Minimal. Power Doppler: None. 3RD MCP: Hypertrophy: Moderate. Power Doppler: None. 3RD PIP: Hypertrophy: Moderate. Power Doppler: Minimal. 4TH MCP: Hypertrophy: Minimal. Power Doppler: None. 4TH PIP: Hypertrophy: None. Power Doppler: None. 5TH MCP: Hypertrophy: Minimal. Power Doppler: None. 5TH PIP: Hypertrophy: Minimal. Power Doppler: None. RIGHT EXTENSOR AND FLEXOR TENOSYNOVIUM: 2ND Digit Flexor: Hypertrophy: None. Power Doppler: None. 2ND Digit Extensor: Hypertrophy: None. Power Doppler: None. 3RD Digit Flexor: Hypertrophy: None. Power Doppler: None. 3RD Digit Extensor: Hypertrophy: None. Power Doppler: None. 4TH Digit Flexor: Hypertrophy: None. Power Doppler: None. 4TH Digit Extensor: Hypertrophy: None. Power Doppler: None. 5TH Digit Flexor: Hypertrophy: None. Power Doppler: None. 5TH Digit Extensor: Hypertrophy: None. Power Doppler: None. CARPUS Synovitis: Hypertrophy: Minimal. Power Doppler: Minimal. OTHER: None. LEFT SIDE: LEFT MCP AND PIP JOINT SYNOVIUM: 2ND MCP: Hypertrophy: Minimal. Power Doppler: Minimal. 2ND PIP: Hypertrophy: None. Power Doppler: None. 3RD MCP: Hypertrophy: Minimal. Power Doppler: Minimal. 3RD PIP: Hypertrophy: None. Power Doppler: None. 4TH MCP: Hypertrophy: Minimal. Power Doppler: None. 4TH PIP: Hypertrophy: None. Power Doppler: None. 5TH MCP: Hypertrophy: Minimal. Power Doppler: None. 5TH PIP: Hypertrophy: None. Power Doppler: None. LEFT EXTENSOR AND FLEXOR TENOSYNOVIUM: 2ND Digit Flexor: Hypertrophy: None. Power Doppler: None. 2ND Digit Extensor: Hypertrophy: None. Power Doppler: None. 3RD Digit Flexor: Hypertrophy: None. Power Doppler: None. 3RD Digit Extensor: Hypertrophy: None. Power Doppler: None. 4TH Digit Flexor: Hypertrophy: None. Power Doppler: None. 4TH Digit Extensor: Hypertrophy: None. Power Doppler: None. 5TH Digit Flexor: Hypertrophy: None. Power Doppler: None. 5TH Digit Extensor: Hypertrophy: None. Power Doppler: None. CARPUS Synovitis: Hypertrophy: None. Power Doppler: None. OTHER: None. IMPRESSION IMPRESSION: Minimal active synovitis involving the right third PIP, left second and third MCP joints and right wrist. No tenosynovitis of the hand or wrist. Equipment Washer: PSCB Transcribe Date/Time: Mar 20 2024 2:56P Dictated by : ERIKA PRASAD MD This examination was interpreted and the report reviewed and electronically signed by: ERIKA PRASAD MD on Mar 20 2024 3:48PM EST [facility] CNTHERAPYon 03-18-2024 CNTHERAPY Normal [facility] CNTHERAPYon 03-12-2024 CNTHERAPY Normal [facility] THERAPY NTon 03-12-2024 THERAPY NT Normal [facility] CNTHERAPYon 03-04-2024 CNTHERAPY Normal [facility] BD DXA - AXIAL SKELETONon BD DXA - AXIAL SKELETON Normal C [facility] [id number] 02-25-2024 [id number] Normal [facility] CNPNon 02-25-2024 CNPN Normal [facility] CNTHERAPYon 02-25-2024 CNTHERAPY Normal [facility] THERAPY NTon 02-25-2024 THERAPY NT Normal [facility] Bacteria Ur Culton Bacteria identified Cx Nom (U) Abnormal [facility] Comment on above: Performed By: #### 6 30-4 ####[facility] LABCLIA [id number] [place] [address] [place] CNOVon 02-21-2024 CNOV Normal [facility] UA DIP, URINE (POC)on 2023 BILIRUBIN UA (POCT) Negative Negative [facility] CLARITY UA (POCT) Clear [facility] COLOR UA (POCT) Yellow [facility] GLUCOSE UA (POCT) Negative Negative mg/dL [facility] Hemoglobin Ql (U) Large Abnormal Negative [facility] Interpretation and review of laboratory results Abnormal [facility] KETONE UA (POCT) Negative Negative mg/dL [facility] LEUKOCYTES UA (POCT) Small Abnormal Negative [facility] NITRITE UA (POCT) Negative Negative [facility] PH UA (POCT) 5.5 4.5 - 8.0 [facility] Protein Ql (U) Negative Negative mg/dL [facility] SPECIFIC GRAVITY UA (POCT) <=1.005 Abnormal 1.005 - 1.030 [facility] UROBILINOGEN UA (POCT) 0.2 Kristy l E.U./dL [facility] Location: Colin, [address] [place] [address], [place], [address] [facility] POINT OF CARE [facility] US THYROID/PARATHYROIDon US THYROID/PARATHYROID Normal [facility] HISTORY PHYSICALon 4 HISTORY PHYSICAL Normal [facility] OPERATIVE NOon 02-17-2024 OPERATIVE NO Normal [facility] CNPNon 02-11-2024 CNPN Normal [facility] CNPNon 01-31-2024 CNPN Normal [facility] CNPNon 01-30-2024 CNPN Normal [facility] CNOVon 01-17-2024 CNOV Normal [facility] CNOVon 12-27-2023 CNOV Normal [facility] CNOVon 12-16-2023 CNOV Normal [facility] MR/BMS.BPon 12-12-2023 MR/BMS.BP [address], [address] [place] [address] OFFICE VISIT Date of Service: 12/12/23 MR#: [id number] Acct: [id number] Name: PRISCILLA RAMOS) Rep #: [id number] : 1955 Provider: Dr. Tl Zhang se, DO Age/Sex: 68/F Location: [facility].BP Status: Signed Intake Vital Signs 08/14/23 13:59 08/29/23 15:42 12/12/23 08:59 12/12/23 09:03 Height 5 ft 5 in 5 ft 5 in 5 ft 5 in 5 ft 5 in BP 148/84 H 114/65 Blood Pressure Location Rt brachial Rt brachial Position Sitting Sitting Pulse 85 94 Pulse Source Monitor Monitor BP Intake Visit Reasons: 3 M FU Collar Cutter Required: No Accompanied by: Self Is patient in pain?: No Allergies No Known Allergies Allergy (Verified 12/12/23 09:00) Medications ???Medication ???Instructions ???Recorded ???Confirmed ???Type colostrum, bovine 500 mg capsule 1,000 mg PO BID 12/14/14 12/12/23 History cyanocobalamin (vitamin B-12) 500 500 mcg sublingual DAILY 12/14/14 12/12/23 History mcg sublingual tablet multivitamin with folic acid 400 1 tab PO DAILY 12/14/14 12/12/23 History mcg tablet (Thera) trazodone 50 mg tablet 50 mg PO QHS 12/14/14 12/12/23 History levothyroxine 25 mcg tablet 25 mcg PO DAILY 07/21/15 12/12/23 History Ca 600 mg-D3 20 mcg-mag oxide 50 1 tab PO DAILY 05/14/22 12/12/23 History hs-Tz-tnbknl-manganes e-boron tablet (Calcium 600-D3 Plus (mag-zinc)) biotin 2,500 mcg capsule 2,500 mcg PO DAILY 05/14/22 12/12/23 History cholecalciferol (vitamin D3) 25 2,000 unit PO DAILY 05/14/22 12/12/23 History mcg (1,000 unit) tablet (Vitamin D3) gabapentin 400 mg capsule 800 mg PO QHS 05/14/22 12/12/23 History aspirin 81 mg tablet,delayed 81 mg PO DAILY 06/07/22 12/12/23 History release (Adult Aspirin Regimen) coenzyme Q10 50 mg capsule (Co 50 mg PO DAILY 12/31/22 12/12/23 History Q-10) rosuvastatin 5 mg tablet 5 mg PO .3 x week 12/31/22 12/12/23 History hydrochlorothiazide 25 mg tablet 25 mg PO DAILY #30 tabs 04/03/23 12/12/23 Rx losartan 100 mg tablet See Rx Instructions .Route 05/17/23 12/12/23 Rx .COMPLEX #90 tabs bupropion HCl 150 mg 24 hr tablet, 150 mg PO DAILY #90 tabs 12/12/23 12/12/23 Rx extended release fluoxetine 40 mg capsule 40 mg PO DAILY #90 caps 12/12/23 12/12/23 Rx Have you fallen in the past year?: No Current gender identity: female Nurse's Note: Presents to the office today for follow up. [facility] Medical History Tiffany's disease Persistent depressive disorder Depression Osteoporosis BiPAP (biphasic positive airway pressure) dependence Chest pain Abnormal stress test Arthritis Essential hypertension Breast nodule Thyroid nodule Obesity Fibromyalgia Dysthymic disorder NELI (obstructive sleep apnea) Hypothyroidism Surgical History History of foot surgery History of total right knee replacement (TKR) History of 2 sections History of herniorrhaphy History of laparoscopic cholecystectomy Family History Mother CVA (cerebral vascular accident) Thyroid disorder Diabetes Father Kidney disease Cancer Social History Smoking Status: Never smoker alcohol intake: current alcohol intake frequency: 0-2 drinks per day Alcohol type: wine substance use type: does not use caffeine: Yes Type: coffee Number of servings: 2 HPI History of Present Illness History provided by: patient HPI: Priscilla Ramos is a 68 year old female who presents today for follow up evaluation. Patient reports that youngest granddaughter starts kindergarten today. This is now a new phase of her life. 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 Riya mclaughlin has been having some numbness in her left leg. Did have a EMG and MRI regarding this, but is set to see spinal surgeon in near future. Sleep has been mostly ok. Has been waking up in middle of night thinking about things to do with their course. Denies SI/HI or AVH. Feels like medications are working very well. Review of Systems Constitutional Denies: fever(s), chills, change in weight or fatigue Eyes Denies: change in vision or blurry vision Ears, Nose, Mouth, Throat Denies: throat pain, neck pain or change in hearing Cardiovascular Denies: chest pain, palpitations or dyspnea Respiratory Denies: dyspnea, cough or wheezing Gastrointestinal Denies: abdominal pain, nausea, vomiting, diarrhea or constipation Genitourinary Denies: dysuria or urinary frequency Musculoskeletal Reports: back pain and joint pain; Denies: neck pain or muscle weakness Integumentary/Breast Denies: rash or new lesio (more content not included)... Normal [facility] 12-03-2023 [facility] Normal [facility] MR Lumbar spine WO [facility] n 11-27-2023 IMPRESSION: Advanced lumbar spondylosis as well as prominent epidural fat noting multilevel high-grade spinal canal narrowing and varying degrees of neural foraminal narrowing that are worst at L4-5. Similar appearance to the. Anatomic Lumbar Variant: None. L4-5 is considered the level of the iliac crest and assume there are 5 lumbar-type vertebrae. Equipment Washer: AMIE Transcribe Date/Time: Nov 27 2023 12:25P Dictated by : DANIE MONDRAGON MD This examination was interpreted and the report reviewed and electronically signed by: DANIE MONDRAGON MD on Nov 27 2023 1:23PM [facility] DIVISION OF RADIOLOGY * * *Final Report* * * DATE OF EXAM: Nov 27 2023 11:45AM M2M 0303 - MRI LUMBAR SPINE WO IVCON / PROCEDURE REASON: multiple diagnoses * * * * Physician Interpretation * * * * EXAMINATION: MRI LUMBAR SPINE WO IVCON CLINICAL HISTORY: Spinal stenosis of lumbar region with neurogenic claudication Spinal stenosis of lumbar region without neurogenic claudication Weakness of left lower extremity TECHNIQUE: Routine lumbosacral spine MR protocol without gadolinium. MQ: [id number] COMPARISON: 11/23/2020 RESULT: Counting reference: Lumbosacral junction. For the purposes of this report, L4-5 is considered the level of the iliac crest and assume there are 5 lumbar-type vertebrae. Anatomic variant: None. Localizer images: No additional findings. Alignment: 2 level disc height loss. Straightening of lumbar lordosis. Grade 1 degenerative anterolisthesis L4-5. Bone marrow signal/fracture: No evidence of pathologic marrow infiltration. Scattered intraosseous hemangiomas, most prominent in the L4 body. No evidence of prior fracture. Conus: The conus is within normal limits of signal intensity and morphology, terminating at the L2 body. Paraspinal soft tissues: Paraspinal soft tissues are within normal limits. Lower thoracic spine: Lower thoracic disc bulging at the level designated T10-11 for the purposes of this report mildly narrowing the spinal canal. L1-L2: Canal and foramina are patent. L2-L3: Disc height loss and bulging with endplate osteophytes and facet hypertrophy as well as prominent epidural fat. Moderate to severe narrowing of the spinal canal and mild to moderate right neural foraminal narrowing. L3-L4: Disc height loss and bulging with endplate osteophytes and facet hypertrophy as well as prominent epidural fat. Severe narrowing of the spinal canal and mild to moderate right/mild left neural foraminal narrowing. L4-L5: Degenerative anterolisthesis, disc pseudobulging, facet hypertrophy and buckling of the ligamentum flavum as well as prominent epidural fat. Severe narrowing of the spinal canal and moderate narrowing of the neural foramina. L5-S1: Facet hypertrophy. Canal and foramina are patent Sacrum and iliac wings: The visualized sacrum and iliac wings are within normal limits. DIVISION OF RADIOLOGY Provider, Luisa rodriguez [facility] - 11/27/2023 * * *Final Report* * * DATE OF EXAM: Nov 27 2023 11:45AM M2M 0303 - MRI LUMBAR SPINE WO IVCON / PROCEDURE REASON: multiple diagnoses * * * * Physician Interpretation * * * * EXAMINATION: MRI LUMBAR SPINE WO IVCON CLINICAL HISTORY: Spinal stenosis of lumbar region with neurogenic claudication Spinal stenosis of lumbar region without neurogenic claudication Weakness of left lower extremity TECHNIQUE: Routine lumbosacral spine MR protocol without gadolinium. MQ: [id number] COMPARISON: 11/23/2020 RESULT: Counting reference: Lumbosacral junction. For the purposes of this report, L4-5 is considered the level of the iliac crest and assume there are 5 lumbar-type vertebrae. Anatomic variant: None. Localizer images: No additional findings. Alignment: 2 level disc height loss. Straightening of lumbar lordosis. Grade 1 degenerative anterolisthesis L4-5. Bone marrow signal/fracture: No evidence of pathologic marrow infiltration. Scattered intraosseous hemangiomas, most prominent in the L4 body. No evidence of prior fracture. Conus: The conus is within normal limits of signal intensity and morphology, terminating at the L2 body. Paraspinal soft tissues: Paraspinal soft tissues are within normal limits. Lower thoracic spine: Lower thoracic disc bulging at the level designated T10-11 for the purposes of this report mildly narrowing the spinal canal. L1-L2: Canal and foramina are patent. L2-L3: Disc height loss and bulging with endplate osteophytes and facet hypertrophy as well as prominent epidural fat. Moderate to severe narrowing of the spinal canal and mild to moderate right neural foraminal narrowing. L3-L4: Disc height loss and bulging with endplate osteophytes and facet hypertrophy as well as prominent epidural fat. Severe narrowing of the spinal canal and mild to moderate right/mild left neural foraminal narrowing. L4-L5: Degenerative anterolisthesis, disc pseudobulging, facet hypertrophy and buckling of the ligamentum flavum as well as prominent epidural fat. Severe narrowing of the spinal canal and moderate narrowing of the neural foramina. L5-S1: Facet hypertrophy. Canal and foramina are patent Sacrum and iliac wings: The visualized sacrum and iliac wings are within normal limits. IMPRESSION IMPRESSION: Advanced lumbar spondylosis as well as prominent epidural fat noting multilevel high-grade spinal canal narrowing and varying degrees of neural foraminal narrowing that are worst at L4-5. Similar appearance to the/08/10. Anatomic Lumbar Variant: None. L4-5 is considered the level of the iliac crest and assume there are 5 lumbar-type vertebrae. Equipment Washer: AMIE Transcribe Date/Time: Nov 27 2023 12:25P Dictated by : DANIE MONDRAGON MD This examination was interpreted and the report reviewed and electronically signed by: DANIE MONDRAGON MD on Nov 27 2023 1:23PM EST [facility] Radiology Study observation (narrative) [facility] MR Lumbar spine WO contrastO rdered By: Ccf Provider on 11-27-2023 [facility] MRI LUMBAR SPINE WO IVCONon 11-27-2023 MRI LUMBAR SPINE WO IVCON Normal [facility] CNPNon 11-24-2023 CNPN Normal [facility] CNCOon 11-18-2023 CNCO Normal [facility] BLOOD TB SCREENon 11-15-2023 M. tuberculosis tuberculin stim IFN-g Ql (Bld) Negative Normal [facility] Comment on above: Order Comment: Speci men Type: BLOOD SPECIMENOrdering Facility: [facility] Address: [address] [place] [address] Performed By: #### I NFTBP ####[facility] LABIA [id number] [place] [address] [place] MITOGEN MINUS NIL >9.98 Normal >=0.50 [facility] Comment on above: Order Comment: Speci men Type: BLOOD SPECIMENOrdering Facility: [facility] Address: [address] [place] [address] Performed By: #### I NFTBP ####[facility] LABCLIA [id number] [place] [address] [place] TB GAMMA INTERPRETATION Normal C [facility] Comment on above: Order Comment: Speci men Type: BLOOD SPECIMENOrdering Facility: [facility] Address: [address] [place] [address] Performed By: #### I NFTBP ####[facility] LABCLIA [id number] [place] [address] [place] TB NIL 0.02 IU/mL Normal <=8.00 [facility] Comment on above: Order Comment: Speci men Type: BLOOD SPECIMENOrdering Facility: [facility] Address: [address] [place] [address] Performed By: #### I NFTBP ####[facility] LABCLIA [id number] [place] [address] [place] TB1 AG MINUS NIL 0.00 IU/mL Normal <0.35 [facility] Comment on above: Order Comment: Speci men Type: BLOOD SPECIMENOrdering Facility: [facility] Address: [address] [place] [address] Performed By: #### I NFTBP ####[facility] LABCLIA [id number] [place] [address] [place] TB2 AG MINUS NIL 0.00 IU/mL Normal <0.35 [facility] Comment on above: Order Comment: Speci men Type: BLOOD SPECIMENOrdering Facility: [facility] Address: [address] [place] [address] Performed By: #### I NFTBP ####[facility] LABCLIA [id number] [place] [address] [place] CRP SerPl-mCncon 11-15-2023 CRP [Mass/Vol] mg/L Normal <0.9 [facility] Comment on above: Order Comment: Speci men Type: BLOOD SPECIMENOrdering Facility: [facility] Address: [address] [place] [address] Performed By: #### 1 988-5, 08417-2 ####[facility] LABCLIA [id number] [place] [address] [place] Cyclic citrullinated peptide IgG Qnon 11-15-2023 CCP ANTIBODY IGG QUALITATIVE Negative Normal Negative [facility] Comment on above: Order Comment: Speci men Type: BLOOD SPECIMENOrdering Facility: [facility] Address: [address] [place] [address] Performed By: #### 3 3935-8 ####[facility] LABIA [id number] [place] [address] [place] ESR Westergren method (Bld) [Velocity]on 11-15-2023 ESR (Bld) [Velocity] 15 mm/h Normal 0-20 [facility] Comment on above: Order Comment: Speci men Type: BLOOD SPECIMENOrdering Facility: [facility] Address: [address] [place] [address] Performed By: #### 4 537-7 ####[facility] [id number] [place] [address] [place] G-6-PD QUANTITATIVEon 2023 G6PD (RBC) [Catalytic activity/Mass] 13.0 U/g Hb Normal 9.8-15.5 [facility] Comment on above: Order Comment: Speci men Type: BLOOD SPECIMENOrdering Facility: [facility] Address: [address] [place] [address] Result Comment: This test was developed and its performance characteristics determined by [facility]'s [facility] Pathology and Laboratory [facility] (-[facility]). It has not been cleared or approved by the FDA. [facility] is regulated under CLIA as qualified to perform high-complexity testing. This test is used for clinical purposes. It should not be regarded as investigational or for research. Performed By: #### Q TG6PD ####[facility] [id number] [place] [address] [place] HBV core Ab Ser Qlon 024 HBV core Ab Ql (S) Negative Normal Negative [facility] Comment on above: Order Comment: Speci men Type: BLOOD SPECIMENOrdering Facility: [facility] Address: [address] [place] [address] Result Comment: No e vidence of current or past infection with Hepatitis B virus. Should recent infection be suspected, repeat testing may be considered 3-4 weeks after this draw. Performed By: #### 5 195-3, 76055-2, 30637-3 ####[facility] LABCLIA [id number] [place] [address] [place] HBV surface Ab Ql (S)on 10-21 HBV surface Ab Qn (S) <8.00 Normal [facility] Comment on above: Order Comment: Speci men Type: BLOOD SPECIMENOrdering Facility: [facility] Address: [address] [place] [address] Result Comment: <8 m IU/mL: No serological evidence of immunity to Hepatitis B Virus.>/= 8 to <12 mIU/mL: No serological evidence of immunity to Hepatitis B Virus.>/= 12 mIU/mL: Consistent with serological evidence of immunity to Hepatitis B Virus. Performed By: #### 5 195-3, 19890-6, 14057-6 ####[facility] LABIA [id number] [address] [place] HBV surface Ab Ser Qlon 10-21 HBV surface Ab Ql (S) Negative Normal [facility] Comment on above: Order Comment: Speci men Type: BLOOD SPECIMENOrdering Facility: [facility] Address: [address] [place] [address] Result Comment: No s erological evidence of immunity to Hepatitis B Virus. Performed By: #### 5 195-3, 89423-3, 56458-6 ####[facility] LABIA [id number] [place] [address] [place] HBV surface Ag Ser Qlon 10-21 HBV surface Ag Ql (S) Negative Normal Negative [facility] Comment on above: Order Comment: Speci men Type: BLOOD SPECIMENOrdering Facility: [facility] Address: [address] [place] [address] Performed By: #### 5 195-3, 17323-6, 13167-5 ####[facility] LABCLIA [id number] [place] [address] [place] HCV Ab Ser Qlon 11-15-2023 HCV Ab Ql (S) Negative Normal Negative [facility] Comment on above: Order Comment: Speci men Type: BLOOD SPECIMENOrdering Facility: [facility] Address: [address] [place] [address] Result Comment: The result suggests no evidence of active infection with Hepatitis C virus. Should recent infection be suspected, repeat testing may be considered 4-6 weeks after this draw. Performed By: #### 1 6128-1 ####[facility] LABCLIA [id number] [place] [address] [place] SIL SCREENINGon 11-15-2023 SIL SCREENING Normal [facility] Rheumatoid fact SerPl-aCncon 11-15-2023 Rheumatoid factor Qn 26 [IU]/mL High <16 [facility] Comment on above: Order Comment: Speci men Type: BLOOD SPECIMENOrdering Facility: [facility] Address: [address] [place] [address] Performed By: #### 1 988-5, 09715-8 ####[facility] LABCLIA [id number] [place] [address] [place] cCP IgG SerPl-aCncon 024 Cyclic citrullinated peptide IgG Qn <15 Normal <20 [facility] Comment on above: Order Comment: Speci men Type: BLOOD SPECIMENOrdering Facility: [facility] Address: [address] [place] [address] Performed By: #### 3 3935-8 ####[facility] LABCLIA [id number] [place] [address] [place] CNPNon 11-14-2023 CNPN Normal [facility] EMG(NEURO/NI)on 11-13-2023 Results can be seen in attached scanned documents. If you are a patient reviewing this test result, call the doctor who ordered the test with any questions. [facility] XR Hand - bilateral PA and L ateral and Obliqueon 09-18-2023 IMPRESSION: Bilateral osteoarthritis, similar to prior. Equipment Washer: AMIE Transcribe Date/Time: Sep 18 2023 8:49A Dictated by : OBDULIO HENRY MD This examination was interpreted and the report reviewed and electronically signed by: OBDULIO HENRY MD on Sep 18 2023 8:52AM [facility] DIVISION OF RADIOLOGY * * *Final Report* * * DATE OF EXAM: Sep 17 2023 3:34PM STX 5556 - XR HAND 3V PA/LAT/OBL JOSIAH / PROCEDURE REASON: Stiffness of hand joint, unspecified laterality * * * * Physician Interpretation * * * * HISTORY: Stiffness of hand joint, unspecified laterality . BILATERAL HAND PAIN AND STIFFNESS ESPECIALLY IN THE MORNING. RIGHT HAND WORSE TECHNIQUE: XR HAND 3V PA/LAT/OBL JOSIAH Laterality: BILATERAL Number of different views (projections): 3 COMPARISON: 12/14/2020 RESULT: Bilateral hands: No acute fracture or dislocation. Mild bilateral radiolunate joint space narrowing and sclerosis. Bilateral triscaphe and first CMC joint space narrowing with marginal osteophytes. Bilateral scattered MCP joint space narrowing with small osteophytes and tiny subchondral cysts, greater involving the first, second, and third MCP joints on the right. Bilateral scattered IP joint space narrowing with sclerosis and osteophytes, greater and markedly involving the bilateral first IP, right second and third IP joints, including subchondral cysts involving the right third PIP joint. No visualized erosion. Soft tissues are unremarkable. DIVISION OF RADIOLOGY Provider, [facility] - 09/18/2023 * * *Final Report* * * DATE OF EXAM: Sep 17 2023 3:34PM STX 5556 - XR HAND 3V PA/LAT/OBL JOSIAH / PROCEDURE REASON: Stiffness of hand joint, unspecified laterality * * * * Physician Interpretation * * * * HISTORY: Stiffness of hand joint, unspecified laterality . BILATERAL HAND PAIN AND STIFFNESS ESPECIALLY IN THE MORNING. RIGHT HAND WORSE TECHNIQUE: XR HAND 3V PA/LAT/OBL JOSIAH Laterality: BILATERAL Number of different views (projections): 3 COMPARISON: 12/14/2020 RESULT: Bilateral hands: No acute fracture or dislocation. Mild bilateral radiolunate joint space narrowing and sclerosis. Bilateral triscaphe and first CMC joint space narrowing with marginal osteophytes. Bilateral scattered MCP joint space narrowing with small osteophytes and tiny subchondral cysts, greater involving the first, second, and third MCP joints on the right. Bilateral scattered IP joint space narrowing with sclerosis and osteophytes, greater and markedly involving the bilateral first IP, right second and third IP joints, including subchondral cysts involving the right third PIP joint. No visualized erosion. Soft tissues are unremarkable. IMPRESSION IMPRESSION: Bilateral osteoarthritis, similar to prior. Equipment Washer: PSCB Transcribe Date/Time: Sep 18 2023 8:49A Dictated by : OBDULIO HENRY MD This examination was interpreted and the report reviewed and electronically signed by: OBDULIO HENRY MD on Sep 18 2023 8:52AM EST [facility] XR Hand - bilateral PA and L ateral and ObliqueOrdered By: Ccf Provider on 09-18-2023 [facility] XR Hand - bilateral PA and L ateral and Obliqueon 09-17-2023 Radiology Study observation (narrative) [facility] HEALTHon 04-25-2023 ALLIED [facility] HNO ID: [id number] Author: DEYANIRA ROACH Tech Service: Radiology Author Type: Hand Booked Folder And Stitcher Type: Allied Health Filed: 04/25/2023 09:11 Note Text: Radiology Service Progress Note PATIENT NAME: Priscilla Ramos DATE OF SERVICE: April 25, 2023 TIME: 9:11 AM PATIENT IDENTITY VERIFICATION COMPLETED USING TWO (2) IDENTIFIERS: Name and Date of confirmed by patient verbally and Name and Date of confirmed by identification band. FALL SCREENING: Has the patient had 2 falls in the last year or 1 fall with injury or currently using an Ambulatory Assistive Device (Walker, Cane, Wheelchair, Crutches, etc.)? No PATIENT GENDER DATA: Female. status: : No status: NO. PATIENT RELEVANT IMPLANT DATA REVIEWED: Not Applicable RADIOLOGY DEPARTMENT: Biopsy and Ultrasound PERIPHERAL IV DATA: Not applicable SIGNED BY: Carlyle Kovacs April 25, 2023 9:11 AM [facility] CYTOLOGY NON-GYNon CASE REPORT [facility] Comment on above: Order Comment: Speci men Type: SPECIMEN OBTAINED BY ASPIRATION Ordering Facility: [facility] Address: [address] [place] [address] Result Comment: [facility] Cytology Report Case: [id number] Authorizing Provider: Cristian Venegas MD Collected: 04/25/2023 08:56 AM Ordering Location: [facility] Radiology Received: 04/25/2023 09:58 AM Pathologist: Erica Sharif MD Specimen: THYROID RIGHT FINE NEEDLE ASPIRATION, RIGHT MID Performed By: #### C YTONON #### [facility] CLIA [id number] [address] CLIA [id number] [address] CLINICAL HISTORY Normal [facility] Comment on above: Order Comment: Speci men Type: SPECIMEN OBTAINED BY ASPIRATION Ordering Facility: [facility] Address: [address] [place] [address] Result Comment: Pre- op diagnosis: Multiple thyroid nodules [E04.2] Afirma requested Performed By: #### C YTONON #### [facility] CLIA [id number] [address] LABORATORY CLIA [id number] [address] FINAL DIAGNOSIS [facility] Comment on above: Order Comment: Speci men Type: SPECIMEN OBTAINED BY ASPIRATION Ordering Facility: [facility] Address: [address] [place] [address] Result Comment: A - THYROID RIGHT FINE NEEDLE ASPIRATION - RIGHT MID Benign. Benign thyroid nodule The following cell blocks were associated with this case: A1 Cell Block, Alcohol Fixed Performed By: #### C YTONON #### [facility] CLIA [id number] [address] [place] [id number] [facility] CLIA [id number] [address] FINAL PERFORMING LAB Normal [facility] Comment on above: Order Comment: Speci men Type: SPECIMEN OBTAINED BY ASPIRATION Ordering Facility: [facility] Address: [address] [place] [address] Result Comment: Tech nical component, control room technician screening performed at [facility], [facility] [place] [id number] CLIA# [id number] Diagnostic interpretation performed at [facility], [address] [place], [place] [id number] CLIA# [id number] Director Of Global Sales: Eris Carrillo M.D. Performed By: #### C YTONON #### [facility] CLIA [id number] [address] [place], [place] [address]NA LABORATORY CLIA [id number] [address] GROSS DESCRIPTION Normal [facility] Comment on above: Order Comment: Speci men Type: SPECIMEN OBTAINED BY ASPIRATION Ordering Facility: [facility] Address: [address] [place] [address] Result Comment: A. T HYROID RIGHT FINE NEEDLE ASPIRATION 30 cc clear pink CytoLyt with material. ThinPrep and Cell Block prepared. Afirma sample received. Performed By: #### C YTONON #### [facility] CLIA [id number] [address] [place] [address] OF [facility] CLIA [id number] [address] ORDER COMMENT [facility] Comment on above: Order Comment: Speci men Type: SPECIMEN OBTAINED BY ASPIRATION Ordering Facility: [facility] Address: [address] [place] [address] Result Comment: Pre- op diagnosis: Multiple thyroid nodules [E04.2] Performed By: #### C YTONON #### [facility] CLIA [id number] [address] [place] [address] OF [facility] CLIA [id number] [address] [place] [address] [place] [facility] THYROID WO CORE BXon 04-25-2023 [facility] THYROID WO CORE BX * * *Final Report* * * DATE OF EXAM: Apr 25 2023 9:18AM JENNIFER 1236 - US [facility]NA THYROID WO CORE BX / PROCEDURE REASON: E04.2-Multiple thyroid nodules * * * * Physician Interpretation * * * * HISTORY: Multiple thyroid nodules Mid right thyroid nodule measuring 1.6 x 1.3 x 1.2 cm TECHNIQUE: Pre-procedure Sign-in: Safety Checklist Performed: Yes. The team confirmed the correct patient, correct site, site marking, correct procedure, and correct position. Timeout Time: 900 Sign-out: Communication performed: Yes COMPARISON: 03/18/2023 ultrasound thyroid RESULT: Nodule in question in the right lobe of the thyroid was aspirated 3 times with 25-gauge needles under direct real-time ultrasound guidance. Specimens were submitted for cytology and Afirma analysis. Permanent ultrasound images and cinematic clips were recorded. IMPRESSION: Ultrasound guided thyroid nodule biopsy as detailed Equipment Washer: AMIE Transcribe Date/Time: Apr 25 2023 12:50P Dictated by : CRISTIAN VENEGAS MD This examination was interpreted and the report reviewed and electronically signed by: CRISTIAN VENEGAS MD on Apr 25 2023 1:42PM EST [id number] N [facility] 11-26-2022 [facility] Telephone (NOAHBA) PRISCILLA RAMOS ( ) 1955 F Date Time Provider Department 11/26/22 SAHARA BOATENG JR During your visit today, we recorded the following information about you: Sarah Monson LPN 11/26/2022 10:36 AM Signed Pt calling to let you know she is out of Gabapentin and does not have any for tonight. Please contact the pharmacy to release medication early. Pt reports she has been taking this for a long time and does not want to wait till 11-29-22. Please advise pt when this has been done. Faye Brady LPN INTELLECTUAL PROPERTY MANAGER 11/26/2022 11:03 AM Signed TC to pt who is out of medication. Does not know where the 6 capsules went. Please advise if a new script can be sent to [facility] or if she will need to wait until the . BRIAN Castellanos William J Jr., MD 11/26/2022 11:45 AM Signed PDMP website checked and validated. All prescriptions have been APPROPRIATELY filled. No suspicious activity was identified. 11/26/2022 by Sahraa Boateng MD Allergies As of Date: 11/26/2022 (No Known Allergies) Date Reviewed: 11/23/2022 Reviewed by: Ping Ferrera APRN.WEIGHT TRAINING INSTRUCTOR - Fully Assessed Reason for Visit: Medication Problem [65] Visit Diagnoses:RLS (restless legs syndrome) [G25.81] Fibromyalgia [M79.7] Order(s):gabapentin (NEURONTIN) 400 mg capsuleTake 2 capsule 60-90 minutes before bedtime.Disp: 180 capsuleRfl: 0 Prescriptions as of 11/26/2022 - gabapentin (NEURONTIN) 400 mg capsule Take 2 capsule 60-90 minutes before bedtime. - acetaminophen (TYLENOL EXTRA STRENGTH) 500 mg tablet Take 1,000 mg by mouth every 8 hours as needed for pain. - rosuvastatin (CRESTOR) 5 mg tablet Take 1 tablet by mouth daily at bedtime. As directed - colestipol (COLESTID) 1 gram tablet Take 1-2 tablets by mouth once daily. As directed - diclofenac (VOLTAREN ARTHRITIS PAIN) 1 % topical gel Apply 2 g to affected area four times daily as needed (wrist pain). - [id number]/sod sulf,bicarb,Cl/KCl (GOLYTELY ORAL) Take by mouth. - acetaminophen (TYLENOL 8 HOUR ORAL) Take by mouth. - BIPAP - amLODIPine (NORVASC) 10 mg tablet Take 10 mg by mouth once daily. - losartan (COZAAR) 100 mg tablet Take 100 mg by mouth once daily. - aspirin 81 mg chewable tablet Take 81 mg by mouth once daily. - ZINC ORAL Take by mouth. - levothyroxine (SYNTHROID) 25 mcg tablet Take 1 tablet by mouth once daily. - ubidecarenone Q-10 (COENZYME Q-10) 10 mg cap Take 50 mg by mouth once daily. - OTC NUTRITIONAL SUPPLEMENT Take 2 capsules by mouth twice daily. Fibro Care - Dvfga-5-POJ-EPA-Fish Oil 300-1,000 mg cap Take 1,000 mg by mouth twice daily. - hyperimmune colostrum, bovine 200 mg tab Take 2 tablets by mouth twice daily. - Ca/D3/mag ox/zinc/commercial helicopter pilot/jose/bor (CALCIUM 600-D3 PLUS, MAG-ZINC, ORAL) - turmeric/turmeric ext/pepr ext (TURMERIC-TURMERIC EXT-PEPPER) 900-100-5 mg cap - CPAP Bipap 17/13 cm H2O, Heat Humidity, suitable mask, Lifetime supplies, opt Chinstrap, G47.33. - cholecalciferol (VITAMIN D3) 2,000 unit tablet Take 2,000 Units by mouth once daily. - FLUoxetine HCl (PROZAC) 40 mg capsule Take 1 capsule by mouth once daily. (Dr. Garcia) - traZODone (DESYREL) 50 mg tablet Take 1 tablet by mouth daily at bedtime. - CYANOCOBALAMIN, VITAMIN B-12, (VITAMIN B-12 ORAL) Take by mouth. - buPROPion XL (WELLBUTRIN XL) 150 mg 24 hr tablet Take one(1) tablet daily. - Biotin (NAIL-EX) 2,500 mcg ORAL Tab Take one(1) tablet daily. - DAILY VITAMIN TAB Take one(1) tablet daily. Facility-Administered Medications as of 11/26/2022 - perflutren lipid microspheres 1.3 mL in NaCl (PF) 0.9% 10 mL injection (DEFINITY) - sodium chloride 0.9 % (flush) 10 mL (BD POSIFLUSH) Problem List As Of Date 11/26/2022 Noted Resolved Fibromyalgia [M79.7] DYSTHYMIC DISORDER [F34.1] Palpitations [R00.2] 11/23/2006 01/29/2014 Dyslipidemia [E78.5] 11/25/2006 Osteopenia [M85.80] 12/14/2010 Arthrosis [M19.90] 12/14/2010 Dysmetabolic syndrome [E88.81] 10/07/2012 Obstructive sleep apnea (adult) (pediatric) [G4*09/09/2013 Insomnia [G47.00] 09/09/2013 Elevated antinuclear antibody (KELTON) level [R76.*08/25/2014 Encounter for screening for malignant neoplasm *07/03/2017 Class 3 severe obesity due to excess calories w*07/04/2017 Acquired hypothyroidism [E03.9] 07/04/2017 Lumbar spondylosis [M47.816] 01/02/2021 Spinal stenosis of lumbar region with neurogeni*01/02/2021 Pain in joint, multiple sites [M25.50] 01/02/2021 RLS (restless legs syndrome) [G25.81] 05/29/2021 Chronic pain of both shoulders [M25.511, G89.29*02/16/2022 HTN (hypertension) [I10] 07/25/2022 CAD (coronary artery disease) [I25.10] 07/25/2022 Prescriptions ordered this encounter Disp Refills Start End GABAPENTIN 400 MG CAPSULE 180 * 0 11/29/2022 11/26/2022 Sig: Take 2 capsule 60-90 minutes before bedtime. Do not start before Augus (more content not included)... Normal [facility] CBC panel Auto (Bld)on 11-23 Erythrocyte distribution width (RBC) [Ratio] 12.7 % 11.5 - 15.0 % [facility] Hematocrit (Bld) [Volume fraction] 41.6 % 36.0 - 46.0 % [facility] Hemoglobin (Bld) [Mass/Vol] 13.7 g/dL 11.5 - 15.5 g/dL [facility] MCH (RBC) [Entitic mass] 31.3 pg 26. 0 - 34.[address] [facility] MCHC (RBC) [Mass/Vol] 32.9 g/dL 30.5 - 36.0 g/dL [facility] MCV (RBC) [Entitic vol] 95.0 fL 80.0 - 100.[address] [facility] Nucleated RBC (Bld) [#/Vol] <0.01 k/uL [facility] Platelet mean volume (Bld) [Entitic vol] 9.4 fL 9.0 - 12.[address] [facility] Platelets (Bld) [#/Vol] 306 10*3/uL 150 - 400 k/uL [facility] RBC (Bld) [#/Vol] 4.38 10*6/uL 3.90 - 5.2 0 m/uL [facility] WBC (Bld) [#/Vol] 6.80 10*3/uL 3.70 - 11.00 k/uL [facility] Comprehensive metabolic 2000 panelon 11-23-2022 Albumin [Mass/Vol] 4.3 g/dL 3.9 - 4.9 g/dL [facility] ALP [Catalytic activity/Vol] 96 U/L 34 - 123 U/L [facility] ALT [Catalytic activity/Vol] 26 U/L 7 - 38 U/L [facility] Anion gap [Moles/Vol] 11 mmol/L 9 - 18 mmol/L [facility] AST [Catalytic activity/Vol] 23 U/L 13 - 35 U/L [facility] Bilirubin [Mass/Vol] 0.3 mg/dL 0.2 - 1 .3 mg/dL [facility] Calcium [Mass/Vol] 9.9 mg/dL 8.5 - 10. 2 mg/dL [facility] Chloride [Moles/Vol] 106 mmol/L High 97 - 10 5 mmol/L [facility] CO2 [Moles/Vol] 24 mmol/L 22 - 30 mmol/L [facility] Creatinine [Mass/Vol] 0.63 mg/dL 0.58 - 0.96 mg/dL [facility] Estimated Glomerular Filtration Rate 97 mL/min/1.73m >=60 mL/min/1.[address] [facility] Glucose [Mass/Vol] 104 mg/dL High 74 - 99 mg/dL [facility] Potassium [Moles/Vol] 4.9 mmol/L 3.7 - 5.1 mmol/L [facility] Protein [Mass/Vol] 7.5 g/dL 6.3 - 8.0 g/dL [facility] Sodium [Moles/Vol] 141 mmol/L 136 - 144 mmol/L [facility] Urea nitrogen [Mass/Vol] 20 mg/dL 7 - 21 mg/dL [facility] - left PA and Later al and Obliqueon 10-02-2022 IMPRESSION: 1. Further interval healing radial styloid fracture. Equipment Washer: AMIE Transcribe Date/Time: Oct 02 2022 9:13A Dictated by : CRISTIAN TAVERA MD This examination was interpreted and the report reviewed and electronically signed by: CRISTIAN TAVERA MD on Oct 02 2022 9:18AM EST DIVISION OF RADIOLOGY * * *Final Report* * * DATE OF EXAM: Oct 01 2022 2:18PM STX 5270 - XR WRIST 3V PA/LAT/OBL LT / PROCEDURE REASON: Pain * * * * Physician Interpretation * * * * WRIST RADIOGRAPHS - LEFT HISTORY: Pain TECHNOLOGIST PROVIDED HISTORY (if applicable): FRACTURE FOLLOW UP TECHNIQUE: XR WRIST 3V PA/LAT/OBL LT COMPARISON: Radiographs 08/20/2022 RESULT: Left wrist: Further interval healing of radial styloid fracture. Normal carpal alignment with triscaphe and first CMC joint space narrowing. No acute bony or soft tissue abnormality. DIVISION OF RADIOLOGY Provider, [facility] - 10/02/2022 * * *Final Report* * * DATE OF EXAM: Oct 01 2022 2:18PM STX 5270 - XR WRIST 3V PA/LAT/OBL LT / PROCEDURE REASON: Pain * * * * Physician Interpretation * * * * WRIST RADIOGRAPHS - LEFT HISTORY: Pain TECHNOLOGIST PROVIDED HISTORY (if applicable): FRACTURE FOLLOW UP TECHNIQUE: XR WRIST 3V PA/LAT/OBL LT COMPARISON: Radiographs 08/20/2022 RESULT: Left wrist: Further interval healing of radial styloid fracture. Normal carpal alignment with triscaphe and first CMC joint space narrowing. No acute bony or soft tissue abnormality. IMPRESSION IMPRESSION: 1. Further interval healing radial styloid fracture. Equipment Washer: AMIE Transcribe Date/Time: Oct 02 2022 9:13A Dictated by : CRISTIAN TAVERA MD This examination was interpreted and the report reviewed and electronically signed by: CRISTIAN TAVERA MD on Oct 02 2022 9:18AM EST [facility] XR Wrist - left PA and Later al and ObliqueOrdered By: Ccf Provider on 10-02-2022 [facility] XR Wrist - left PA and Later al and Obliqueon 10-01-2022 Radiology Study observation (narrative) [facility] XR Wrist - left PA and Later al and Obliqueon 08-21-2022 IMPRESSION: 1. Healing radial styloid fracture. Equipment Washer: AMIE Transcribe Date/Time: Aug 21 2022 9:01A Dictated by : CRISTIAN TAVERA MD This examination was interpreted and the report reviewed and electronically signed by: CRISTIAN TAVERA MD on Aug 21 2022 9:27AM EST DIVISION OF RADIOLOGY * * *Final Report* * * DATE OF EXAM: Aug 20 2022 4:03PM STX 5270 - XR WRIST 3V PA/LAT/OBL LT / PROCEDURE REASON: Wrist injury, left, initial encounter * * * * Physician Interpretation * * * * WRIST RADIOGRAPHS - LEFT HISTORY: Wrist injury, left, initial encounter TECHNOLOGIST PROVIDED HISTORY (if applicable): left wrist injury for a month TECHNIQUE: XR WRIST 3V PA/LAT/OBL LT COMPARISON: Radiographs 07/24/2022 RESULT: Left wrist: There is a obliquely oriented subacute and partially healed fracture of the radial styloid which was radiographically occult on the previous study. Carpal bones are normally aligned without additional abnormality. Mild narrowing of the scaphotrapezial and first CMC joints. DIVISION OF RADIOLOGY Provider, [facility] - 08/21/2022 * * *Final Report* * * DATE OF EXAM: Aug 20 2022 4:03PM STX 5270 - XR WRIST 3V PA/LAT/OBL LT / PROCEDURE REASON: Wrist injury, left, initial encounter * * * * Physician Interpretation * * * * WRIST RADIOGRAPHS - LEFT HISTORY: Wrist injury, left, initial encounter TECHNOLOGIST PROVIDED HISTORY (if applicable): left wrist injury for a month TECHNIQUE: XR WRIST 3V PA/LAT/OBL LT COMPARISON: Radiographs 07/24/2022 RESULT: Left wrist: There is a obliquely oriented subacute and partially healed fracture of the radial styloid which was radiographically occult on the previous study. Carpal bones are normally aligned without additional abnormality. Mild narrowing of the scaphotrapezial and first CMC joints. IMPRESSION IMPRESSION: 1. Healing radial styloid fracture. Equipment Washer: PSCB Transcribe Date/Time: Aug 21 2022 9:01A Dictated by : CRISTIAN TAVERA MD This examination was interpreted and the report reviewed and electronically signed by: CRISTIAN TAVERA MD on Aug 21 2022 9:27AM EST [facility] XR Wrist - left PA and Later al and ObliqueOrdered By: Ccf Provider on 08-21-2022 [facility] XR Wrist - left PA and Later al and Obliqueon 08-20-2022 Radiology Study observation (narrative) [facility] SURGICAL PATHOLOGYon 023 Case Report Surgical Pathology Report Case: [id number] Authorizing Provider: Black Pitts MD Collected: 08/01/2022 08:40 AM Ordering Location: [facility] Endoscopy Received: 08/01/2022 01:59 PM Pathologist: Dae Carrillo MD Specimen: TRANSVERSE COLON POLYP [facility] FINAL DIAGNOSIS A. Colon, transverse , polyp, biopsy: - Fragments of tubular adenoma. [facility] Gross Description A. TRANSVERSE COLON POLYP Received in formalin are multiple pieces of weiner, soft tissue aggregating to 1.6 x 0.7 x 0.2 cm. Totally submitted in formalin in three cassettes. Gross examination performed at [facility], [facility] [place] [id number] 08/01/2022 7:[address] [facility] Performing Lab Diagnostic interpretation performed at [facility], [address] [place] [address] CLIA# [id number] Director Of Global Sales: Eris Carrillo M.D. [facility] ANES POSTPROC EVALon 023 ANES POSTPROC EVAL HNO ID: [id number] Author: Princess Matthews MD Service: Anesthesiology Author Type: Anesthesiologist Type: Anesthesia Postprocedure Evaluation Filed: 08/01/2022 9:11 AM Note Text: POST ANESTHESIA EVALUATION NOTE : 1955 Procedure Summary Date: 08/01/22 Room / Location: [facility] Anesthesia Start: 805 Anesthesia Stop: 852 Procedure: COLONOSCOPY SCREENING Diagnosis: History of colonic polyps (High risk colon cancer surveillance: Personal history of colonic polyps) Scheduled Providers: Black Pitts MD Responsible Provider: Princess Matthews MD Anesthesia Type: MAC ASA Status: 3 Anesthesia Type: MAC Last Vitals Vitals Value Taken Time BP 126/58 08/01/22 0901 Temp 08/01/22 0911 Pulse 72 08/01/22 0909 Resp 5 08/01/22 0909 SpO2 98 % 08/01/22 0909 Vitals shown include unvalidated device data. Post Anesthesia Patient Status Patient Evaluation: PACU. PACU/ICU Patient Condition: stable. Anticipated Disposition: phase 2 then home. Neurological Status: sleepy but arousable. Pulmonary Status: breathing comfortably on room air Airway Control: returned to baseline unsupported. Cardiovascular Status: stable. Pain Management: clinically adequate - multimodal analgesia pain management approach Postoperative Hydration: acceptable. Intraoperative Events: no significant anesthesia events Post Operative Nausea/Vomiting Status: no significant post operative nausea or vomiting Recommendation: continue current plan of care. Anesthesia Observations No Documentation SIGNATURE: Princess Matthews MD PATIENT NAME: Priscilla Ramos DATE: August 01, 2022 TIME: 9:11 AM CSN: [id number] Normal [facility] ANES PRE-OPon 08-01-2022 ANES PRE-OP HNO ID: [id number] Author: Princess Matthews MD Service: Anesthesiology Author Type: Anesthesiologist Type: Anesthesia Preprocedure Evaluation Filed: 08/01/2022 7:17 AM Note Text: ANESTHESIOLOGY DAY OF SURGERY NOTE : 1955 Procedure Information Date/Time: 08/01/22829 Scheduled providers: Black Pitts MD; Princess Matthews MD Procedure: COLONOSCOPY SCREENING Location: [facility] Estimated body mass index is 42.1 kg/m? as calculated from the following: Height as of 07/25/22: 165.1 cm (5' 5). Weight as of 07/25/22: 114.8 kg (253 lb). Most recent hematocrit and potassium results: HCT 43.8 02/03/2022 K 4.4 02/03/2022 Relevant Problems ANESTHESIA (+) Obstructive sleep apnea (adult) (pediatric) CARDIO (+) CAD (coronary artery disease) (+) HTN (hypertension) ENDO (+) Acquired hypothyroidism PULMONARY (+) Obstructive sleep apnea (adult) (pediatric) I - PHYSICAL EVALUATION AIRWAY Patient intubated: No. Tracheostomy tube not present Mallampati: II. TM distance: <3 FB. Neck ROM: full ROM without neurological symptoms. Mouth opening: adequate. Short neck: yes. Thick neck: no Bledsoe present: no Microretrognathia/Kem ronagthia/Recessed Chin: Yes DENTAL Dental findings: missing tooth/teeth. Additional exam findings: yes. CARDIOVASCULAR Rhythm: regular Rate: normal PULMONARY Breath sounds clear to auscultation. ABDOMINAL Obese: obesity present. BACK Previous neurological condition or findings: condition present. Other findings: Spinal stenosis Left leg weakness. II - ANESTHESIA PLAN ASA Score: 3 Anesthetic Plan: MAC The patient is not a current smoker. NPO Status: adequate Beta Duc Monitoring Plan Monitoring plan: standard ASA. Post Procedure Analgesic Plan Postoperative analgesic plan: multimodal analgesia. Informed Consent Anesthetic risks, benefits, alternatives, personnel and consent discussed: yes. Patient / Responsible Alliance Party agrees to proceed: yes Patient / Surrogate agrees to blood products: blood products not planned DNR status not reviewed with patient and/or family prior to surgery. Significant changes in the patient condition since the History and Physical, not otherwise documented in primary service progress note: no. Potential Anesthesia issues that may suggest increased risk of complications or contraindication to planned procedure: none. No vitals data found for the desired time range. Outpatient Medications as of 08/01/2022 Medication Sig - BIPAP - amLODIPine (NORVASC) 10 mg tablet Take 10 mg by mouth once daily. - levothyroxine (SYNTHROID) 25 mcg tablet Take 1 tablet by mouth once daily. - gabapentin (NEURONTIN) 400 mg capsule Take 2 capsule 60-90 minutes before bedtime. - CPAP Increase PAP setting to 17/13 cmH2O. - CPAP Bipap 17/13 cm H2O, Heat Humidity, suitable mask, Lifetime supplies, opt Chinstrap, G47.33. - FLUoxetine HCl (PROZAC) 40 mg capsule Take 1 capsule by mouth once daily. (Dr. Garcia) - traZODone (DESYREL) 50 mg tablet Take 1 tablet by mouth daily at bedtime. - buPROPion XL (WELLBUTRIN XL) 150 mg 24 hr tablet Take one(1) tablet daily. - Biotin (NAIL-EX) 2,500 mcg ORAL Tab Take one(1) tablet daily. - losartan (COZAAR) 100 mg tablet Take 100 mg by mouth once daily. - aspirin 81 mg chewable tablet Take 81 mg by mouth once daily. - ZINC ORAL Take by mouth. - ubidecarenone Q-10 (COENZYME Q-10) 10 mg cap Take 50 mg by mouth once daily. - OTC NUTRITIONAL SUPPLEMENT Take 2 capsules by mouth twice daily. Fibro Care - Avodp-6-NIG-EPA-Fish Oil 300-1,000 mg cap Take 1,000 mg by mouth twice daily. - hyperimmune colostrum, bovine 200 mg tab Take 2 tablets by mouth twice daily. - colestipol (COLESTID) 1 gram tablet Take 1-2 tablets by mouth once daily. As directed - Ca/D3/mag ox/zinc/commercial helicopter pilot/jose/bor (CALCIUM 600-D3 PLUS, MAG-ZINC, ORAL) - turmeric/turmeric ext/pepr ext (TURMERIC-TURMERIC EXT-PEPPER) 900-100-5 mg cap - cholecalciferol (VITAMIN D3) 2,000 unit tablet Take 2,000 Units by mouth once daily. - CYANOCOBALAMIN, VITAMIN B-12, (VITAMIN B-12 ORAL) Take by mouth. - DAILY VITAMIN TAB Take one(1) tablet daily. Facility-Administered Medications as of 08/01/2022 Medication Dose Route Frequency - lactated ringers iv infusion 30 mL/hr INTRAVENOUS CONTINUOUS - perflutren lipid microspheres 1.3 mL in NaCl (PF) 0.9% 10 mL injection (DEFINITY) INTRAVENOUS DIRECTED PRN - sodium chloride 0.9 % (flush) 10 mL (BD POSIFLUSH) 10 mL INTRAVENOUS DIRECTED PRN I have interviewed and examined the patient. I have reviewed the medical record and/or the pre-anesthesia evaluation, pertinent labs, and test results. This contains updated information obtained within 48 hours of Surgery/Procedure. SIGNATURE: Princess Matthews MD PATIENT NAME: Priscilla Ramos DATE: August 01, 2022 TIME: 7:16 AM CSN: [id number] Normal [facility] COLONOSCOPY SCREENINGon 07-21 [facility] Colonoscopyon 08-01-2022 Colonoscopy [facility] Gastrointestinal Endoscopy Patient Name: Priscilla Ramos Procedure Date: 08/01/2022 8:08 AM Date of : 1955 Admit Type: Outpatient Age: 67 Room: [facility] Gender: Female Note Status: Finalized Attending MD: Black Pitts MD Procedure: Colonoscopy Indications: High risk colon cancer surveillance: Personal history of colonic polyps Providers: Blakc Pitts MD Patient Profile: This is a 67 year old female. Refer to note in patient chart for documentation of history and physical. Last Colonoscopy: July 2017. Referring Physician: Iman (pa) Kenyetta (Referring MD) Medicines: See the Anesthesia note for documentation of the administered medications Complications: No immediate complications. Estimated blood loss: Minimal. Requesting Provider: Procedure: Pre-Anesthesia Assessment: - Prior to the procedure, a History and Physical was performed, and patient medications and allergies were reviewed. The patient's tolerance of previous anesthesia was also reviewed. The risks and benefits of the procedure and the sedation options and risks were discussed with the patient. All questions were answered, and informed consent was obtained. Prior Anticoagulants: The patient has taken no anticoagulant or antiplatelet agents except for aspirin. ASA Grade Assessment: III - A patient with severe systemic disease. After reviewing the risks and benefits, the patient was deemed in satisfactory condition to undergo the procedure. After I obtained informed consent, the scope was passed under direct vision. Throughout the procedure, the patient's blood pressure, pulse, and oxygen saturations were monitored continuously. The Colonoscope was introduced through the anus and advanced to the cecum, identified by appendiceal orifice and ileocecal valve. The ileocecal valve, appendiceal orifice, and rectum were photographed. The colonoscopy was performed with difficulty due to a tortuous colon. Successful completion of the procedure was aided by straightening and shortening the scope to obtain bowel loop reduction. The patient tolerated the procedure fairly well. The quality of the bowel preparation was adequate to identify polyps 6 mm and larger in size. Scope Withdrawal Time: 0 hours 15 minutes 20 seconds Moderate Sedation: MAC anesthesia was administered by the anesthesia team. Total Procedure Duration: 0 hours 35 minutes 35 seconds Findings: The perianal and digital rectal examinations were normal. A medium polyp was found in the transverse colon. The polyp was sessile. The polyp was removed with a hot snare. Resection and retrieval were complete. To prevent bleeding post-intervention, two hemostatic clips were successfully placed. Clip oracle ascp consultant: [employer] Molly[employer]r. There was no bleeding at the end of the procedure. The exam was otherwise without abnormality on direct and retroflexion views. Impression: - One medium polyp in the transverse colon, removed with a hot snare. Resected and retrieved. Clips were placed. Clip oracle ascp consultant: [employer]. - The examination was otherwise normal on direct and retroflexion views. Recommendation: - Patient has a contact number available for emergencies. The signs and symptoms of potential delayed complications were discussed with the patient. Return to normal activities tomorrow. Written discharge instructions were provided to the patient. - Resume previous diet. - Continue present medications. - Await pathology results. - Repeat colonoscopy in 5 years for surveillance. - Return to physician carpenter assistant installer in 1 week. - Resume previous antiplatelet medication today at prior dose. Procedure Code(s): --- Professional --- 44835, Colonoscopy, flexible; with removal of tumor(s), polyp(s), or other lesion(s) by snare technique Diagnosis Code(s): --- Professional --- Z12.11, Encounter for screening for malignant neoplasm of colon Z86.010, Personal history of colonic polyps D12.3, Benign neoplasm of transverse colon (hepatic flexure or splenic flexure) CPT copyright 2020 [employer]. All rights reserved. The codes documented in this report are preliminary and upon moving worker review may be revised to meet current compliance requirements. Attending Participation: I personally performed the entire procedure. Scope In: 8:13:22 AM Scope Out: 8:48:57 AM MD Black Knowles MD 08/01/2022 8:53:39 AM This report has been signed electronically by Black Pitts MD Number of Addenda: 0 Note Initiated On: 08/01/2022 8:08 AM Estimated Blood Loss: Estimated blood loss was minimal. Normal [facility] HISTORY PHYSICALon HISTORY PHYSICAL HNO ID: [id number] Author: Black Pitts MD Service: General Surgery Author Type: Physician Type: HANDP Filed: 08/01/2022 8:10 AM Note Text: HISTORY AND PHYSICAL Priscilla Ramos 1955 REFERRING PHYSICIAN: Emilee Condon MD CHIEF COMPLAINT: Consult (Colonoscopy consult) HPI: The patient is a 67 year old female referred for endoscopy. Priscilla notes no colon complaints. Patient denies any change in bowel habits, weight changes, blood in stools, black tarry stools or abdominal pain. Denies family history of colon issues. The patient notes no upper GI complaints. Priscilla has undergone prior endoscopy. Last colonoscopy 07/29/17 Dr. Morris with removal of adenomatous polyp, 5 year repeat recommended. Patient had recent cardiac catheterization d/t abnormal stress test. No blockages, no interventions performed. She has upcoming follow-up with Dr. Gaming. PAST MEDICAL HISTORY PAST MEDICAL HISTORY Diagnosis Date Abnormal mammogram, unspecified 06/27/2006 Acquired hypothyroidism 07/04/2017 CAD (coronary artery disease) Calculus of gallbladder with chronic cholecystitis without obstruction 08/01/2015 Corns and callosities 01/24/2014 Diarrhea Dysphagia 05/27/2015 feeling like food sits in bottom of esophagus if eats heavier than usual meal Dysthymic disorder Depression (non-psychotic) Elevated antinuclear antibody (KELTON) level 08/25/2014 Essential hypertension Internal hemorrhoids without mention of complication Myalgia and myositis, unspecified FIBROMYALGIA Obesity, unspecified Obesity Obstructive sleep apnea DME [employer] [place] Osteoarthritis of multiple joints PAIN LEG (Right) 02/20/2005 Temporomandibular joint disorders, unspecified 11/23/2006 PAST SURGICAL HISTORY PAST SURGICAL HISTORY Procedure Laterality Date ARTHRP KNE CONDYLEANDPLATU MEDIALANDLAT COMPARTMENTS 09/2011 right DELIVERY ONLY , low cervical DELIVERY ONLY , low cervical COLONOSCOPY FLX DX W/COLLJ SPEC WHEN PFRMD 07/29/2017 Colonoscopy COLONOSCOPY W/BIOPSY SINGLE/MULTIPLE 02/10/2007 LAPS SURG CHOLECYSTECTOMY W/CHOLANGIOGRAPHY 08/17/2015 LEFT HEART CATH,PERCUTANEOUS PAST SURGICAL HISTORY OF foot-left STEREOTACTIC CORE BIOPSY 07/04/2006 UOQ RIGHT AVANI W/WO REMOVAL TUBE OVARY 1999 Hysterectomy, AVANI ovaries remain CURRENT MEDICATIONS Current Outpatient Medications Medication Sig levothyroxine (SYNTHROID) 25 mcg tablet Take 1 tablet by mouth once daily. gabapentin (NEURONTIN) 400 mg capsule Take 2 capsule 60-90 minutes before bedtime. ubidecarenone Q-10 (COENZYME Q-10) 10 mg cap Take 50 mg by mouth once daily. CPAP Increase PAP setting to 17/13 cmH2O. OTC NUTRITIONAL SUPPLEMENT Take 2 capsules by mouth twice daily. Fibro Care Gahji-3-NXH-EPA-Fish Oil 300-1,000 mg cap Take 1,000 mg by mouth twice daily. hyperimmune colostrum, bovine 200 mg tab Take 2 tablets by mouth twice daily. colestipol (COLESTID) 1 gram tablet Take 1-2 tablets by mouth once daily. As directed Ca/D3/mag ox/zinc/commercial helicopter pilot/jose/bor (CALCIUM 600-D3 PLUS, MAG-ZINC, ORAL) turmeric/turmeric ext/pepr ext (TURMERIC-TURMERIC EXT-PEPPER) 900-100-5 mg cap CPAP Bipap 17/13 cm H2O, Heat Humidity, suitable mask, Lif[employer] supplies, opt Chinstrap, G47.33. cholecalciferol (VITAMIN D3) 2,000 unit tablet Take 2,000 Units by mouth once daily. FLUoxetine HCl (PROZAC) 40 mg capsule Take 1 capsule by mouth once daily. (Dr. Garcia) traZODone (DESYREL) 50 mg tablet Take 1 tablet by mouth daily at bedtime. CYANOCOBALAMIN, VITAMIN B-12, (VITAMIN B-12 ORAL) Take by mouth. buPROPion XL (WELLBUTRIN XL) 150 mg 24 hr tablet Take one(1) tablet daily. Biotin (NAIL-EX) 2,500 mcg ORAL Tab Take one(1) tablet daily. DAILY VITAMIN TAB Take one(1) tablet daily. Current Facility-Administered Medications Medication Dose Route Frequency perflutren lipid microspheres 1.3 mL in NaCl (PF) 0.9% 10 mL injection (DEFINITY) INTRAVENOUS DIRECTED PRN sodium chloride 0.9 % (flush) 10 mL (BD POSIFLUSH) 10 mL INTRAVENOUS DIRECTED PRN ALLERGIES: Patient has no known allergies. PERSONAL HISTORY: SOCIAL HISTORY Social History Tobacco Use Smoking status: Never Smokeless tobacco: Never Vaping Use Vaping Use: Never used Substance Use Topics Alcohol use: Yes Alcohol/week: 18.0 standard drinks Types: 18 Glasses of wine per week Comment: wine with supper Drug use: No FAMILY HISTORY: FAMILY HISTORY FAMILY HISTORY Problem Relation Age of Onset Diabetes Mother late in life at 75 Stroke Mother x3 Cancer Father myeloma (from immunesuppressants) at age 80 of chf and perf. bowel other (ESRD) Father had sudden renal failure; had kidney transplant at 68yo Thyroid Brother Hypertension Son No Known Problems Son REVIEW OF SYMPTOMS: The review of systems data was entered by the nurse and reviewed by me Nursing Notes: Angella Lara (more content not included)... [facility] SURGICAL PATHOLOGYon 023 CASE REPORT [facility] Comment on above: Order Comment: Speci men Type: TISSUE SPECIMEN Ordering Facility: [facility] Address: [address] [place] [id number] Result Comment: Surg ical Pathology Report Case: [id number] Authorizing Provider: Black Pitts MD Collected: 08/01/2022 08:40 AM Ordering Location: [facility] Endoscopy Received: 08/01/2022 01:59 PM Pathologist: Dae Carrillo MD Specimen: TRANSVERSE COLON POLYP Performed By: #### S #### [facility] CLIA [id number] [address] [place] [address] FINAL DIAGNOSIS Normal [facility] Comment on above: Order Comment: Speci men Type: TISSUE SPECIMEN Ordering Facility: [facility] Address: [address] [place] [address] Result Comment: A. C olon, transverse, polyp, biopsy: - Fragments of tubular adenoma. Performed By: #### S #### [facility] CLIA [id number] [address] [place] [address] FINAL PERFORMING LAB Normal [facility] Comment on above: Order Comment: Speci men Type: TISSUE SPECIMEN Ordering Facility: [facility] Address: [address] [place] [address] Result Comment: Diag nostic interpretation performed at [facility], [address] [place] [address] CLIA# [id number] Director Of Global Sales: Eris Carrillo M.D. Performed By: #### S #### [facility] CLIA [id number] [address] [place] [address] OF [facility] GROSS DESCRIPTION Normal [facility] Comment on above: Order Comment: Speci men Type: TISSUE SPECIMEN Ordering Facility: [facility] Address: [address] [place] [address] Result Comment: A. T RANSVERSE COLON POLYP Received in formalin are multiple pieces of weiner, soft tissue aggregating to 1.6 x 0.7 x 0.2 cm. Totally submitted in formalin in three cassettes. Gross examination performed at [facility], [address] [place] [address] 08/01/2022 7:29 PM Performed By: #### S #### [facility] CLIA [id number] [address] [place] [address] [place] Basophil percentageOrdered B y: Cristian Coffman on 07-27-2022 Bilirubin [Mass/Vol] 0.40 mg/dL 0.20-1.00 [facility] Comment on above: For patients on eltr ombopag therapy, use of Dimension Wedron TBIL is not recommended. Cholesterol [Mass/Vol] 198 mg/dL <200 [facility] Comment on above: <200 mg/dL Desirable 200-240 mg/dL Borderline >240 mg/dL High Risk Protein [Mass/Vol] 7.5 g/dL 6.4-8.2 [facility] Triglyceride [Mass/Vol] 82 mg/dL <199 [facility] Comment on above: The drugs N-Acetylcy steine and Metamizole may falsely depress this assay.Serum Triglycerides Reference Interval Normal <150 mg/dL Borderline high 150 - 199 mg/dL High 200 - 499 mg/dL Very High > or = 500 mg/dL Direct bilirubinOrdered By: Cristian Coffman on 07-27-2022 Bilirubin.direct [Mass/Vol] 0.14 mg/dL 0.00-0.30 [facility] Laboratory - Chemistry and C hemistry - challengeOrdered By: Cristian Coffman on 07-27-2022 ALP [Catalytic activity/Vol] 96 U/L 45-117 [facility] ALT [Catalytic activity/Vol] 41 U/L 13-56 [facility] Globulin (S) [Mass/Vol] 4.0 g/dL 2.2-4.2 [facility] Serum or plasma albumin hever urement (mass/volume)Ordered By: Cristian Coffman on 07-27-2022 Albumin [Mass/Vol] 3.5 g/dL 3.2-5.0 [facility] Serum or plasma cholesterol in HDL measurement (mass/volume)Ordered By: Cristian Coffman on 07-27-2022 Cholesterol in HDL [Mass/Vol] 85 mg/dL >40 [facility] Comment on above: The drugs N-Acetylcy steine and Metamizole may falsely depress this assay. Reference Range HDL <40 mg/dL Low HDL Cholesterol HDL >or= 60 mg/dL High HDL Cholesterol Serum or plasma cholesterol in VLDL measurement (mass/volume)Ordered By: Cristian Coffman on 07-27-2022 Cholesterol in VLDL [Mass/Vol] 16 mg/dL 5-40 [facility] Serum or plasma low density lipoprotein (LDL) cholesterol measurement (mass/volume)Ordered By: Cristian Coffman on 07-27-2022 Cholesterol in LDL [Mass/Vol] 97 mg/dL 0-130 [facility] Thin prep Papanicolaou smear with manual screeningOrdered By: Cristian Coffman on 07-27-2022 Thin prep Papanicolaou smear with manual screening 26 U/L 15-37 [facility] XR WRIST INJURY 4V PA/LAT/OB L/SCAPH LEFTon 07-24-2022 [facility] XR Wrist - left 4 Viewson Radiology Study observation (narrative) German Bustillo IMPRESSION: Soft tissue swelling about the LEFT wrist without acute osseous abnormality. Equipment Washer: AMIE Transcribe Date/Time: Jul 24 2022 9:17A Dictated by : BOB SEXTON DO This examination was interpreted and the report reviewed and electronically signed by: BOB SEXTON DO on Jul 24 2022 9:22AM [facility] DIVISION OF RADIOLOGY * * *Final Report* * * DATE OF EXAM: Jul 24 2022 9:16AM WOX [id number] - XR WRIST 4V PA/LAT/OBL/SCAPH LT / PROCEDURE REASON: Wrist injury, left, initial encounter * * * * Physician Interpretation * * * * EXAMINATION: XR WRIST 4V PA/LAT/OBL/SCAPH LT PATIENT/TECHNOLOGIST PROVIDED HISTORY: fell yesterday, pain radial side CLINICAL INFORMATION: 67 years old Female with Wrist injury, left, initial encounter TECHNIQUE: XR WRIST 4V PA/LAT/OBL/SCAPH LT Laterality: LEFT Number of different views (projections): 4 COMPARISON: Radiographs 12/14/2020 RESULT: Soft tissue swelling about the wrist. No fracture. Moderate degenerative change 1st CMC joint. Mild degenerative change scaphotrapeziotrapezo id joint and 3rd MCP joint. Joint spaces are otherwise maintained. DIVISION OF RADIOLOGY Provider, [facility] Gemma Talavera - 07/24/2022 * * *Final Report* * * DATE OF EXAM: Jul 24 2022 9:16AM WOX [id number] - XR WRIST 4V PA/LAT/OBL/SCAPH LT / PROCEDURE REASON: Wrist injury, left, initial encounter * * * * Physician Interpretation * * * * EXAMINATION: XR WRIST 4V PA/LAT/OBL/SCAPH LT PATIENT/TECHNOLOGIST PROVIDED HISTORY: fell yesterday, pain radial side CLINICAL INFORMATION: 67 years old Female with Wrist injury, left, initial encounter TECHNIQUE: XR WRIST 4V PA/LAT/OBL/SCAPH LT Laterality: LEFT Number of different views (projections): 4 COMPARISON: Radiographs 12/14/2020 RESULT: Soft tissue swelling about the wrist. No fracture. Moderate degenerative change 1st CMC joint. Mild degenerative change scaphotrapeziotrapezo id joint and 3rd MCP joint. Joint spaces are otherwise maintained. IMPRESSION IMPRESSION: Soft tissue swelling about the LEFT wrist without acute osseous abnormality. Equipment Washer: AMIE Transcribe Date/Time: Jul 24 2022 9:17A Dictated by : BOB SEXTON DO This examination was interpreted and the report reviewed and electronically signed by: BOB SEXTON DO on Jul 24 2022 9:22AM EST [facility] XR Wrist - left 4 ViewsOrder ed By: Ccf Provider on 07-24-2022 [facility] Laboratory - Microbiology an d Antimicrobial susceptibilityOrdered By: Dr. Fuentes on 06-22-2022 Bacteria identified Cx Nom (Bld) No growth in 5 days. [facility] Culture, urineOrdered By: Dr Sheron Fuentes on 06-18-2022 Bacteria identified Cx Nom (U) Positive [facility] Absolute lymphocyte countOrd ered By: Dr. Fuentes on 06-16-2022 Lymphocytes Auto (Unsp spec) [#/Vol] 1.80 10*3/uL 0.83-4.51 [facility] Basophil percentageOrdered B y: Dr. Fuentes on 06-16-2022 Basophils/100 WBC (Bld) 0.4 % 0-1 [facility] Bilirubin [Mass/Vol] 0.60 mg/dL 0.20-1.00 [facility] Comment on above: For patients on eltr ombopag therapy, use of Dimension Wedron TBIL is not recommended. Chloride [Moles/Vol] 103 mmol/L 98-107 [facility] Eosinophils/100 WBC (Bld) 1.4 % 0-5 [facility] Glucose [Mass/Vol] 108 mg/dL 74-106 [facility] Comment on above: Fasting Glucose resu lt from 100 to 125 mg/dL suggests IMPAIRED HOMEOSTASIS per A.D.A. criteria. Lactate [Moles/Vol] 1.4 mmol/L 0.4-2.0 [facility] Neutrophils (Bld) [#/Vol] 8.9 10*3/uL 2.0-7.7 [facility] Neutrophils/100 WBC (Bld) 76.2 % 47-70 [facility] Potassium [Moles/Vol] 4.0 mmol/L 3.5-5.1 [facility] Protein [Mass/Vol] 7.7 g/dL 6.4-8.2 [facility] Sodium [Moles/Vol] 138 mmol/L 136-145 [facility] WBC (Bld) [#/Vol] 11.7 10*3/uL 4.4-11.0 [facility] Basophil percentage 5-10 SEEN /hpf 0-5 [facility] Bilirubin Test strip Ql (U)O rdered By: Dr. Fuentes on 06-16-2022 Bilirubin Ql (U) Negative Negative [facility] Blood erythrocytes count (nu mber/volume)Ordered By: Dr. Fuentes on 06-16-2022 RBC (Bld) [#/Vol] 4.48 10*6/uL 4.2-5.4 [facility] Blood hemoglobin measurement (mass/volume)Ordered By: Dr. Fuentes on 06-16-2022 Hemoglobin (Bld) [Mass/Vol] 13.8 g/dL 12.0-15.0 [facility] Blood lymphocytes/100 leukoc ytesOrdered By: Dr. Fuentes on 06-16-2022 Lymphocytes/100 WBC (Bld) 15.4 % 19-41 [facility] Blood monocytes/100 leukocyt esOrdered By: Dr. Fuentes on 06-16-2022 Monocytes/100 WBC (Bld) 6.3 % 0-10 [facility] Blood platelet mean volumeOr dered By: Dr. Fuentes on 06-16-2022 Platelet mean volume (Bld) [Entitic vol] 9.2 fL 6.2-12.0 [facility] Determination of erythrocyte mean corpuscular volume (MCV)Ordered By: Dr. Fuentes on 06-16-2022 MCV (RBC) [Entitic vol] 93.8 fL 81-99 [facility] Hematocrit Auto (Bld) [Volum e fraction]Ordered By: Dr. Fuentes on 06-16-2022 Hematocrit (Bld) [Volume fraction] 42.0 % 37-47 [facility] INR in Blood by Coagulation assayOrdered By: Dr. Fuentes on 06-16-2022 INR Coag (Bld) [Relative time] 1.0 {INR} [facility] Influenza virus A and B and SARS-CoV-2 (COVID-19) Ag panel - Upper respiratory specimOrdered By: Dr. Fuentes on 06-16-2022 SARS-CoV-2 & FLU Antigen (Rapid) Influenzae A [facility] Ketones Test strip Ql (U)Ord ered By: Dr. Fuentes on 06-16-2022 Ketones Ql (U) Negative Negative [facility] Laboratory - Chemistry and C hemistry - challengeOrdered By: Dr. Fuentes on 06-16-2022 ALP [Catalytic activity/Vol] 96 U/L 45-117 [facility] ALT [Catalytic activity/Vol] 44 U/L 13-56 [facility] CO2 [Moles/Vol] 25.0 mmol/L 21.0-32.0 [facility] Globulin (S) [Mass/Vol] 3.9 g/dL 2.2-4.2 [facility] Urea nitrogen/Creatinine [Mass ratio] 22.4 mg/mg 10-20 [facility] Laboratory - CoagulationOrde red By: Dr. Fuentes on 06-16-2022 aPTT Coag (Bld) [Time] 27.3 s 24.1-36.2 [facility] PT Coag (PPP) [Time] 13.0 s 11.7-14.9 [facility] Laboratory - Hematology and Cell countsOrdered By: Dr. Fuentse on 06-16-2022 Erythrocyte distribution width (RBC) [Entitic vol] 43.6 fL 35.1-43.9 [facility] Erythrocyte distribution width (RBC) [Ratio] 12.6 % 11.6-14.6 [facility] Immature granulocytes/100 WBC (Bld) 0.300 % 0.0-0.9 [facility] Comment on above: IG% - Immature Granu locytes (promyelocytes, myelocytes and metamyelocytes) > 1% indicates that a LEFT SHIFT is Present. MCH (RBC) [Entitic mass] 30.8 pg 27.0-32.0 [facility] Nucleated RBC/100 WBC (Bld) [Ratio] 0 % 0-5 [facility] MCHC Auto (RBC) [Mass/Vol]Or dered By: Dr. Fuentes on 06-16-2022 MCHC (RBC) [Mass/Vol] 32.9 g/dL 32-36 [facility] Mucus LM Ql (Urine sed)Order ed By: Dr. Fuentes on 06-16-2022 Mucus Ql (Urine sed) 0 SEEN /hpf [facility] Nitrite Test strip Ql (U)Ord ered By: Dr. Fuentes on 06-16-2022 Nitrite Ql (U) Negative Negative [facility] No Panel InformationOrdered By: Dr. Fuentes on 06-16-2022 Estimated Creatinine Clearance Calc 48.45 ml/min [facility] Estimated GFR (MDRD) Amer 97 mL/min >60 [facility] Comment on above: GFR Calc Estimated GFR (MDRD) Non-Af Amer 81 mL/min >60 [facility] Comment on above: Non- GFR Calc Platelets bldOrdered By: Dr. Fuentes on 06-16-2022 Platelets (Bld) [#/Vol] 304 10*3/uL 150-450 [facility] Protein Test strip Ql (U)Ord ered By: Dr. Fuentes on 06-16-2022 Protein Ql (U) Negative Negative [facility] Serum or plasma albumin hever urement (mass/volume)Ordered By: Dr. Fuentes on 06-16-2022 Albumin [Mass/Vol] 3.8 g/dL 3.2-5.0 [facility] Serum or plasma albumin/glob ulin mass ratioOrdered By: Dr. Fuentes on 06-16-2022 Albumin/Globulin [Mass ratio] 1.0 {ratio} 0.9-2.4 [facility] Serum or plasma calcium hever urement (mass/volume)Ordered By: Dr. Fuentes on 06-16-2022 Calcium [Mass/Vol] 9.2 mg/dL 8.5-10.1 [facility] Serum or plasma creatinine m easurement (mass/volume)Ordered By: Dr. Fuentes on 06-16-2022 Creatinine [Mass/Vol] 0.76 mg/dL 0.55-1.02 [facility] Comment on above: The validity of the calculated GFR & GFRAA in patients over 70 years has not been determined. Clinical correlation is essential. Serum or plasma urea nitroge n measurement (mass/volume)Ordered By: Dr. Fuentes on 06-16-2022 Urea nitrogen [Mass/Vol] 17 mg/dL 7-18 [facility] Squamous epithelial cells de tection in urine sediment by light microscopyOrdered By: Dr. Fuentes on 06-16-2022 Epithelial cells.squamous LM Ql (Urine sed) 0-5 SEEN /hpf 5-10 [facility] Thin prep Papanicolaou smear with manual screeningOrdered By: Dr. Fuentes on 06-16-2022 Thin prep Papanicolaou smear with manual screening 27 U/L 15-37 [facility] Thin prep Papanicolaou smear with manual screening 10 5-15 [facility] Urine blood detectionOrdered By: Dr. Fuentes on 06-16-2022 RBC Ql (U) 10 /ul Negative [facility] RBC Ql (U) 0 SEEN /hpf 0-5 [facility] Urine clarityOrdered By: Dr. Fuentes on 06-16-2022 Clarity (U) Sl. Cloudy Clear [facility] Urine color determinationOrd ered By: Dr. Fuentes on 06-16-2022 Color (U) Yellow Yellow [facility] Urine glucose detectionOrder ed By: Dr. Fuentes on 06-16-2022 Glucose Ql (U) Normal mg/dl Normal [facility] Urine leukocyte esterase det ection by dipstickOrdered By: Dr. Fuentes on 06-16-2022 Leukocyte esterase Test strip Ql (U) 25 /ul Negative [facility] Urine pHOrdered By: Dr. Denisse foster on 06-16-2022 pH (U) 6.5 [pH] 5.0 - 8.0 [facility] Urine sediment bacteria coun t by microscopy (number/high power field)Ordered By: Dr. Fuentes on 06-16-2022 Bacteria LM.HPF (Urine sed) [#/Area] 1 /[HPF] None Seen [facility] Urine specific gravity measu rementOrdered By: Dr. Fuentes on 06-16-2022 Specific gravity (U) [Rel density] 1.010 1.002-1.030 [facility] Urobilinogen Auto test strip Ql (U)Ordered By: Dr. Fuentes on 06-16-2022 Urobilinogen Ql (U) Normal mg/dl Normal [facility] Absolute lymphocyte countOrd ered By: Dr. Shannon on 05-14-2022 Lymphocytes Auto (Unsp spec) [#/Vol] 2.63 10*3/uL 0.83-4.51 [facility] Basophil percentageOrdered B y: Dr. Shannon on 05-14-2022 Basophils/100 WBC (Bld) 0.5 % 0-1 [facility] Chloride [Moles/Vol] 107 mmol/L 98-107 [facility] Eosinophils/100 WBC (Bld) 2.6 % 0-5 [facility] Glucose [Mass/Vol] 90 mg/dL 74-106 [facility] Neutrophils (Bld) [#/Vol] 4.3 10*3/uL 2.0-7.7 [facility] Neutrophils/100 WBC (Bld) 55.9 % 47-70 [facility] Potassium [Moles/Vol] 3.9 mmol/L 3.5-5.1 [facility] Sodium [Moles/Vol] 139 mmol/L 136-145 [facility] WBC (Bld) [#/Vol] 7.6 10*3/uL 4.4-11.0 [facility] Blood erythrocytes count (nu mber/volume)Ordered By: Dr. Shannon on 05-14-2022 RBC (Bld) [#/Vol] 4.79 10*6/uL 4.2-5.4 [facility] Blood hemoglobin measurement (mass/volume)Ordered By: Dr. Shannon on 05-14-2022 Hemoglobin (Bld) [Mass/Vol] 14.9 g/dL 12.0-15.0 [facility] Blood lymphocytes/100 leukoc ytesOrdered By: Dr. Shannon on 05-14-2022 Lymphocytes/100 WBC (Bld) 34.5 % 19-41 [facility] Blood monocytes/100 leukocyt esOrdered By: Dr. Shannon on 05-14-2022 Monocytes/100 WBC (Bld) 6.2 % 0-10 [facility] Blood platelet mean volumeOr dered By: Dr. Shannon on 05-14-2022 Platelet mean volume (Bld) [Entitic vol] 9.7 fL 6.2-12.0 [facility] Determination of erythrocyte mean corpuscular volume (MCV)Ordered By: Dr. Shannon on 05-14-2022 MCV (RBC) [Entitic vol] 94.2 fL 81-99 [facility] Hematocrit Auto (Bld) [Volum e fraction]Ordered By: Dr. Shannon on 05-14-2022 Hematocrit (Bld) [Volume fraction] 45.1 % 37-47 [facility] Laboratory - Chemistry and C hemistry - challengeOrdered By: Dr. Shannon on 05-14-2022 CO2 [Moles/Vol] 24.0 mmol/L 21.0-32.0 [facility] Urea nitrogen/Creatinine [Mass ratio] 23.4 mg/mg 10-20 [facility] Laboratory - Hematology and Cell countsOrdered By: Dr. Shannon on 05-14-2022 Erythrocyte distribution width (RBC) [Entitic vol] 44.1 fL 35.1-43.9 [facility] Erythrocyte distribution width (RBC) [Ratio] 12.6 % 11.6-14.6 [facility] Immature granulocytes/100 WBC (Bld) 0.300 % 0.0-0.9 [facility] Comment on above: IG% - Immature Granu locytes (promyelocytes, myelocytes and metamyelocytes) > 1% indicates that a LEFT SHIFT is Present. MCH (RBC) [Entitic mass] 31.1 pg 27.0-32.0 [facility] Nucleated RBC/100 WBC (Bld) [Ratio] 0 % 0-5 [facility] Auto (RBC) [Mass/Vol]Or dered By: Dr. Shannon on 05-14-2022 MCHC (RBC) [Mass/Vol] 33.0 g/dL 32-36 [facility] No Panel InformationOrdered By: Dr. Shannon on 05-14-2022 Troponin I High Sensitivity 9 pg/mL 3.0-54.0 [facility] Comment on above: Please Note: New Manuela t Units and Gender Specific Reference Ranges. For more information see Policy Stat Procedure [place] High Sensitivity Troponin (TNIH) and attachments. Estimated Creatinine Clearance Calc 48.45 ml/min [facility] Estimated GFR (MDRD) Amer 96 mL/min >60 [facility] Comment on above: GFR Calc Estimated GFR (MDRD) Non-Af Amer 79 mL/min >60 [facility] Comment on above: Non- GFR Calc Platelets bldOrdered By: Dr. Shannon on 05-14-2022 Platelets (Bld) [#/Vol] 328 10*3/uL 150-450 [facility] Serum or plasma calcium hever urement (mass/volume)Ordered By: Dr. Shannon on 05-14-2022 Calcium [Mass/Vol] 9.4 mg/dL 8.5-10.1 [facility] Serum or plasma creatinine m easurement (mass/volume)Ordered By: Dr. Shannon on 05-14-2022 Creatinine [Mass/Vol] 0.77 mg/dL 0.55-1.02 [facility] Comment on above: The validity of the calculated GFR & GFRAA in patients over 70 years has not been determined. Clinical correlation is essential. Serum or plasma urea nitroge n measurement (mass/volume)Ordered By: Dr. Shannon on 05-14-2022 Urea nitrogen [Mass/Vol] 18 mg/dL 7-18 [facility] Thin prep Papanicolaou smear with manual screeningOrdered By: Dr. Shannon on 05-14-2022 Thin prep Papanicolaou smear with manual screening 8 5-15 [facility] SIL DIAGNOSTIC BILATon 04-11 [facility] US THYROID/PARATHYROIDon [facility] DXA-AXIAL SKELETONon [address] [facility] [address] CHEST WO IVCONon 02-23- 22 [facility] ECHOon 02-09-2022 [facility] XR Chest PA and Lateralon IMPRESSION: No acute radiographic abnormality. Equipment Washer: AMIE Transcribe Date/Time: Feb 06 2022 5:29A Dictated by : JOI JOHNSON MD This examination was interpreted and the report reviewed and electronically signed by: JOI JOHNSON MD on Feb 06 2022 5:30AM [facility] DIVISION OF RADIOLOGY * * *Final Report* * * DATE OF EXAM: Feb 05 2022 6:13PM WOX 5291 - XR CHEST 2V FRONTAL/LAT / PROCEDURE REASON: GARCIA (dyspnea on exertion) * * * * Physician Interpretation * * * * EXAMINATION: CHEST RADIOGRAPH (2 VIEW FRONTAL & LATERAL) CLINICAL HISTORY: GARCIA (dyspnea on exertion) MQ: XC2_6 EXAM DATE/TIME: 02/05/2022 6:13 PM COMPARISON: Chest x-ray dated March 08, 2021 RESULT: Lines, tubes, and devices: None. Lungs and pleura: No consolidation. No lung mass. No pleural effusion. No pneumothorax. Cardiomediastinal silhouette: Stable cardiomediastinal silhouette. Bones and soft tissues: Degenerative changes are present within the thoracic spine. DIVISION OF RADIOLOGY Provider, [facility] - 02/06/2022 * * *Final Report* * * DATE OF EXAM: Feb 05 2022 6:13PM WOX [id number] - XR CHEST 2V FRONTAL/LAT / PROCEDURE REASON: GARCIA (dyspnea on exertion) * * * * Physician Interpretation * * * * EXAMINATION: CHEST RADIOGRAPH (2 VIEW FRONTAL & LATERAL) CLINICAL HISTORY: GARCIA (dyspnea on exertion) MQ: XC2_6 EXAM DATE/TIME: 02/05/2022 6:13 PM COMPARISON: Chest x-ray dated March 08, 2021 RESULT: Lines, tubes, and devices: None. Lungs and pleura: No consolidation. No lung mass. No pleural effusion. No pneumothorax. Cardiomediastinal silhouette: Stable cardiomediastinal silhouette. Bones and soft tissues: Degenerative changes are present within the thoracic spine. IMPRESSION IMPRESSION: No acute radiographic abnormality. Equipment Washer: [facility] Transcribe Date/Time: Feb 06 2022 5:29A Dictated by : JOI JOHNSON MD This examination was interpreted and the report reviewed and electronically signed by: JOI JOHNSON MD on Feb 06 2022 5:30AM EST [facility] XR Chest PA and LateralOrder ed By: [facility] Provider on 02-06-2022 [facility] D-DIMERon 02-05-2022 Fibrin D-dimer FEU (PPP) [Mass/Vol] 420 ng/mL FEU <500 ng/mL FEU [facility] Fibrin D-dimer FEU (PPP) [Ma ss/Vol]on 02-05-2022 D Dimer Age-related Cutoff 680 ng/mL FEU [facility] XR CHEST 2V FRONTAL/LATon [facility] XR Chest PA and Lateralon Radiology Study observation (narrative) [facility] XR Chest PA and Lateralon IMPRESSION: No developing abnormality or acute process. Cardiomegaly Equipment Washer: [facility] Transcribe Date/Time: Mar 08 2021 6:49P Dictated by : JASIVR VICTORIA MD This examination was interpreted and the report reviewed and electronically signed by: JASVIR VICTORIA MD on Mar 08 2021 6:50PM [facility] DIVISION OF RADIOLOGY * * *Final Report* * * DATE OF EXAM: Mar 08 2021 6:10PM WOX 5291 - XR CHEST 2V FRONTAL/LAT / PROCEDURE REASON: GARCIA (dyspnea on exertion) * * * * Physician Interpretation * * * * EXAMINATION: CHEST RADIOGRAPH (2 VIEW FRONTAL & LATERAL) CLINICAL HISTORY: GARCIA (dyspnea on exertion) MQ: XC2_6 EXAM DATE/TIME: 03/08/2021 6:10 PM COMPARISON: 04/30/2017 RESULT: Lines, tubes, and devices: None. Lungs and pleura: No consolidation. No lung mass. No pleural effusion. No pneumothorax. Minimal stable atelectasis or fibrosis at the left lung base Cardiomediastinal silhouette: Stable enlarged cardiomediastinal silhouette. Bones and soft tissues: Unremarkable. DIVISION OF RADIOLOGY Provider, Luisa Men[facility] - 03/08/2021 * * *Final Report* * * DATE OF EXAM: Mar 08 2021 6:10PM WOX 5291 - XR CHEST 2V FRONTAL/LAT / PROCEDURE REASON: GARCIA (dyspnea on exertion) * * * * Physician Interpretation * * * * EXAMINATION: CHEST RADIOGRAPH (2 VIEW FRONTAL & LATERAL) CLINICAL HISTORY: GARCIA (dyspnea on exertion) MQ: XC2_6 EXAM DATE/TIME: 03/08/2021 6:10 PM COMPARISON: 04/30/2017 RESULT: Lines, tubes, and devices: None. Lungs and pleura: No consolidation. No lung mass. No pleural effusion. No pneumothorax. Minimal stable atelectasis or fibrosis at the left lung base Cardiomediastinal silhouette: Stable enlarged cardiomediastinal silhouette. Bones and soft tissues: Unremarkable. IMPRESSION IMPRESSION: No developing abnormality or acute process. Cardiomegaly Equipment Washer: AMIE Transcribe Date/Time: Mar 08 2021 6:49P Dictated by : JASVIR VICTORIA MD This examination was interpreted and the report reviewed and electronically signed by: JASVIR VICTORIA MD on Mar 08 2021 6:50PM [facility] Radiology Study observation (narrative) [facility] XR Chest PA and LateralOrder ed By: [facility] Provider on 03-08-2021 [facility] XR Hand - bilateral PA and L ateral and Obliqueon 12-14-2020 IMPRESSION: Degenerative changes in the bilateral hands as described above. Equipment Washer: AMIE Transcribe Date/Time: Dec 14 2020 5:51P Dictated by : RAFAEL BOSWELL MD This examination was interpreted and the report reviewed and electronically signed by: RAFAEL BOSWELL MD on Dec 14 2020 5:54PM [facility] DIVISION OF RADIOLOGY * * *Final Report* * * DATE OF EXAM: Dec 14 2020 5:50PM STX [id number] - XR HAND 3V PA/LAT/OBL JOSIAH / PROCEDURE REASON: Pain in joint, multiple sites * * * * Physician Interpretation * * * * EXAM TITLE: XR HAND 3V PA/LAT/OBL JOSIAH EXAM DATE/TIME: 12/14/2020 5:50 PM COMPARISON: None. CLINICAL INDICATION/HISTORY: Hand pain. TECHNIQUE: PA, lateral and oblique views of both hands are presented. FINDINGS: No acute fractures or subluxations are noted. Cystic formation and osteophyte formation noted along the bilateral first carpometacarpal joints. There appears to be bilateral triscaphe joint space narrowing. Degenerative changes involving multiple DIP/PIP joints and interphalangeal joints of the bilateral first digits. Bony spurs seen in the metacarpophalangeal joints of both third digits. The mineralization of the bones is normal. There is no significant soft tissue swelling. DIVISION OF RADIOLOGY Provider, Luisa rodriguez [facility] - 12/14/2020 * * *Final Report* * * DATE OF EXAM: Dec 14 2020 5:50PM STX 5556 - XR HAND 3V PA/LAT/OBL JOSIAH / PROCEDURE REASON: Pain in joint, multiple sites * * * * Physician Interpretation * * * * EXAM TITLE: XR HAND 3V PA/LAT/OBL JOSIAH EXAM DATE/TIME: 12/14/2020 5:50 PM COMPARISON: None. CLINICAL INDICATION/HISTORY: Hand pain. TECHNIQUE: PA, lateral and oblique views of both hands are presented. FINDINGS: No acute fractures or subluxations are noted. Cystic formation and osteophyte formation noted along the bilateral first carpometacarpal joints. There appears to be bilateral triscaphe joint space narrowing. Degenerative changes involving multiple DIP/PIP joints and interphalangeal joints of the bilateral first digits. Bony spurs seen in the metacarpophalangeal joints of both third digits. The mineralization of the bones is normal. There is no significant soft tissue swelling. IMPRESSION IMPRESSION: Degenerative changes in the bilateral hands as described above. Equipment Washer: [facility] Transcribe Date/Time: Dec 14 2020 5:51P Dictated by : RAFAEL BOSWELL MD This examination was interpreted and the report reviewed and electronically signed by: RAFAEL BOSWELL MD on Dec 14 2020 5:54PM [facility] Radiology Study observation (narrative) [facility] XR Hand - bilateral PA and L ateral and ObliqueOrdered By: [facility] Provider on 12-14-2020 [facility] Vital Signs Date Time Vital Sign Value Performing Clinician Facility 09-28-2024 13:41-0400 Body height 163.[address] [facility] 09-28-2024 13:41-0400 Body mass index (BMI) [Ratio] 46.02 kg/m2 Aspen Ceballos RD [facility] 09-28-2024 13:41-0400 Body weight 123.[address] [facility] 09-25-2024 11:34-0400 Body mass index (BMI) [Ratio] 46.01 kg/m2 Vibha Marin APRN.WEIGHT TRAINING INSTRUCTOR Work Phone: [facility] 09-25-2024 11:34-0400 Body temperature 97.3 [degF] Vibha Marin APRN.WEIGHT TRAINING INSTRUCTOR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 physician Xr [facility] Colin Mob Work Phone: Radiology Comment on above: Acute respiratory in fection [J22] Start: 09-23-2024 End: 09-24-2024 Get Medical Advice Emilee Condon MD Work Phone: [facility] [place] Comment on above: Request for a urinal ysis order Start: 09-22-2024 End: 09-22-2024 Refill Sarahi Alfredo MD Work Phone: Rheumatology Comment on above: Refill Request Start: 09-16-2024 End: 09-16-2024 ambulatory Emilee Condon MD Work Phone: [facility] [place] Start: 09-16-2024 End: 09-16-2024 Patient encounter procedure Emilee Condon MD Work Phone: [facility] [place] Comment on above: Referral request Start: 09-03-2024 End: 09-03-2024 ambulatory EMILEE CONDON Facility:[facility] Start: 08-31-2024 End: 08-31-2024 ambulatory Emilee Condon Facility:[facility] Start: 08-25-2024 End: 08-25-2024 Office outpatient visit 15 minutes Emilee Condon MD Work Phone: [facility] [place] Comment on above: Acute respiratory in fection (Primary Dx); Abnormal CXR Start: 08-25-2024 End: 08-25-2024 ambulatory EMILEE CONDON Facility:[facility] Start: 08-22-2024 End: 08-22-2024 Follow-up encounter Ponce GREEN Work Phone: [facility] Start: 08-21-2024 End: 08-21-2024 Subsequent hospital visit by physician Xr [facility] Colin Work Phone: Radiology Comment on above: Acute cough [R05.1] Start: 08-21-2024 End: 08-21-2024 Patient encounter procedure Faye Norton APRN.WEIGHT TRAINING INSTRUCTOR Work Phone: [facility] Comment on above: Acute cough (Primary Dx); Abnormal chest x-ray; URI, acute Start: 08-21-2024 End: 08-21-2024 [facility] Start: 08-19-2024 End: 08-19-2024 Refill Sarahi Alfredo MD Work Phone: Rheumatology Comment on above: Refill Request Start: 08-17-2024 End: 10-17-2024 Follow-up encounter Donnie Hernandez APRN.WEIGHT TRAINING INSTRUCTOR Work Phone: OB/Gynecology Comment on above: Results Start: 08-14-2024 End: 08-14-2024 ambulatory EMILEE D TALAMPAS Facility:[facility] Start: 08-14-2024 End: 08-14-2024 ambulatory EMILEE D TALAMPAS Facility:[facility] Start: 08-14-2024 Encounter for gynecological examination (general) (routine) with abnormal findings DONNIE HERNANDEZ [facility] Start: 08-06-2024 End: 10-06-2024 Follow-up encounter Sarahi Alfredo MD Work Phone: Rheumatology Start: 08-06-2024 End: 08-06-2024 ambulatory EMILEE D ANGELOAMPAS Facility:[facility] Start: 07-29-2024 End: 07-29-2024 ambulatory Sarahi Alfredo MD Work Phone: Rheumatology Comment on above: Handicapped Parking Permit request Start: 07-23-2024 End: 07-24-2024 ambulatory Emilee D Angeloampas Facility:[facility] Start: 07-20-2024 End: 07-20-[address] [facility] Start: 07-20-2024 End: 07-20-2024 Nutrition therapy Aspen Ceballos RD [facility] Comment on above: Assessment; Patient Education Start: 07-16-2024 End: 07-16-2024 ambulatory Emilee D Angeloampas Facility:[facility] Start: 07-10-2024 End: 07-10-2024 ambulatory EMILEE D TALAMPAS Facility:[facility] Start: 07-10-2024 End: 07-10-2024 Office outpatient visit 40 minutes Emilee Cnodon MD Work Phone: Internal [facility] [place] Comment on above: Hyponatremia (Primar y Dx); Episodic lightheadedness; Primary hypertension; Peripheral vascular disease (HCC); Class 3 severe obesity due to excess calories with body mass index (BMI) of 40.0 to 44.9 in adult, unspecified whether serious comorbidity present (HCC) Start: 07-07-2024 End: 07-07-2024 ambulatory EMILEE D TALAMPAS Facility:[facility] Start: 07-07-2024 End: 07-07-2024 Patient encounter procedure Sarahi Alfredo MD Work Phone: Rheumatology Comment on above: Seropositive rheumat oid arthritis (HCC) (Primary Dx); Inflammatory arthritis; Osteoarthritis of multiple joints, unspecified osteoarthritis type; Pain in joint, multiple sites; Lumbar spondylosis; Fibromyalgia; Osteoporosis, post menopausal; Encounter for long-term (current) use of medications Start: 07-01-2024 ambulatory Emilee Alla Russell Facilit y:[facility] Start: 06-30-2024 End: 07-01-2024 ambulatory Emilee Alla Russell Facility:[facility] Start: 06-30-2024 End: 07-01-2024 ambulatory Nurse Intm/Famp Triage [facility] Work Phone: Nurse Phone Triage Comment on above: Opened In Error Dizziness Update on 3:00 p.m. appt. Weds. Start: 06-26-2024 End: 06-26-2024 Patient encounter procedure Sahara Boateng MD Work Phone: Neurology Comment on above: NELI on CPAP (Primary Dx); Class 3 severe obesity with body mass index (BMI) of 40.0 to 44.9 in adult, unspecified obesity type, unspecified whether serious comorbidity present (HCC); RLS (restless legs syndrome); Chronic insomnia; Fibromyalgia; Malaise and fatigue Start: 06-26-2024 End: 06-26-2024 [facility] EMILEE ROYPHU Facility:[facility] Start: 06-15-2024 End: 06-15-2024 [facility] EMILEE Alla [facility] Facility:[facility] Start: 06-15-2024 End: 06-15-2024 Office outpatient visit 40 minutes Emilee Condon MD Work Phone: [facility] [place] Comment on above: IFG (impaired fastin g glucose) (Primary Dx); Rheumatoid arthritis involving multiple sites with positive rheumatoid factor (HCC); Primary hypertension; Acquired hypothyroidism; Spinal stenosis of lumbar region with neurogenic claudication; GARCIA (dyspnea on exertion); Other fatigue; Encounter for screening mammogram for breast cancer; Encounter for immunization; Class 3 severe obesity due to excess calories with body mass index (BMI) of 45.0 to 49.9 in adult, unspecified whether serious comorbidity present (HCC) Start: 06-10-2024 End: 06-10-2024 ambulatory EMILEE STEINBERGOSCAR Facility:[facility] Start: 06-08-2024 End: 06-09-2024 ambulatory Emilee Condon MD Work Phone: [facility] [place] Comment on above: Blood work for my up coming appt. Start: 05-18-2024 End: 05-18-2024 Refill Emilee Condon MD Work Phone: [facility] [place] Comment on above: Refill Request Start: 05-05-2024 End: 07-03-2024 ambulatory Emilee Condon MD Work Phone: [facility] [place] Comment on above: UA results Refill Request; Open ed In Error Start: 05-04-2024 End: 05-04-2024 ambulatory MEILEE Aguila ANGELOOSCAR Facility:[facility] Start: 04-02-2024 End: 04-13-2024 ambulatory Faye Norton APRN.WEIGHT TRAINING INSTRUCTOR Work Phone: [facility] Comment on above: Results Start: 04-02-2024 End: 04-13-2024 E-mail encounter from caregiver Faye Lintongs RACE CAR DRIVER.WEIGHT TRAINING INSTRUCTOR Work Phone: [facility] Start: 03-31-2024 End: 03-31-2024 Telephone encounter Emilee Condon MD Work Phone: [facility] [place] Comment on above: Patient Update Start: 03-31-2024 End: 03-31-2024 ambulatory EMILEE CONDON Facility:[facility] Start: 03-31-2024 End: 03-31-2024 Patient encounter procedure Mar Williamson PA-C Work Phone: [facility] Comment on above: Acute UTI (Primary D x) Start: 03-27-2024 End: 03-27-2024 ambulatory KASIE LIMON Facility:[facility] Start: 03-25-2024 End: 03-26-2024 ambulatory Prince West RACE CAR DRIVER.WEIGHT TRAINING INSTRUCTOR Work Phone: Rheumatology Comment on above: Inflammatory arthrit is (Primary Dx); Fibromyalgia; Osteoarthritis of multiple joints, unspecified osteoarthritis type; Osteoporosis, post menopausal UA results Start: 03-25-2024 End: 03-25-2024 Telemedicine consultation with patient Prince West APRJARRED Work Phone: Rheumatology Start: 03-24-2024 End: 03-24-[address] Golias PT Work Phone: [facility] Comment on above: Acute back pain with sciatica, left (Primary Dx); Lumbar radiculopathy Start: 03-23-2024 End: 03-23-2024 ambulatory KASIE LIMON Facility:[facility] Start: 03-23-2024 End: 03-23-2024 ambulatory Emilee D Talampas Facility:[facility] Start: 03-20-2024 End: 03-20-2024 ambulatory EMILEE D TALAMPAS Facility:[facility] Start: 03-20-2024 End: 03-20-2024 Subsequent hospital visit by physician [facility] Rej Work Phone: Radiology Comment on above: Inflammatory arthrit is [M19.90] Start: 03-18-2024 End: 03-18-2024 ambulatory Alize Kashuba FIELD SCOUT Work Phone: [facility] Comment on above: Acute back pain with sciatica, left (Primary Dx); Lumbar radiculopathy Start: 03-12-2024 End: 03-12-2024 ambulatory Alize Kashuba FIELD SCOUT Work Phone: [facility] Comment on above: Acute back pain with sciatica, left (Primary Dx); Lumbar radiculopathy Start: 03-04-2024 End: 03-04-[address] Golias PT Work Phone: [facility] Comment on above: Acute back pain with sciatica, left (Primary Dx); Lumbar radiculopathy Start: 03-02-2024 End: 03-02-2024 ambulatory EMILEE D TALAMPAS Facility:[facility] Start: 03-02-2024 End: 03-02-2024 Subsequent hospital visit by physician Bone Density [facility] Work Phone: Radiology Comment on above: Osteoporosis, post m enopausal [M81.0] Start: 02-25-2024 End: 02-25-2024 Telephone encounter Kasie Limon APRN.COMMERCIAL CARPENTER Work Phone: [facility] [place] Comment on above: UTI symptoms not shlomo ared Start: 02-25-2024 End: 02-25-[address] Golsuman PT Work Phone: [facility] Physical [facility] Comment on above: Acute back pain with sciatica, left (Primary Dx); Lumbar neuritis; Lumbar radiculopathy; Chronic bilateral low back pain with left-sided sciatica Start: 02-21-2024 End: 02-21-2024 Office outpatient visit 15 minutes Kasie Limon APRN.COMMERCIAL CARPENTER Work Phone: [facility] [place] Comment on above: Urgency of urination (Primary Dx); Urinary tract infection without hematuria, site unspecified Start: 02-21-2024 End: 02-21-2024 ambulatory Emilee Condon MD Work Phone: [facility] [place] Comment on above: Urinary Symptoms Start: 02-21-2024 End: 02-21-2024 Subsequent hospital visit by physician [facility] Work Phone: Radiology Comment on above: Multiple thyroid nod ules [E04.2] Start: 02-17-2024 End: 02-17-2024 ambulatory EMILEE CONDON Facility:[facility] Start: 02-11-2024 End: 02-11-2024 Telephone encounter Jovany Bahena DO Work Phone: [facility] Comment on above: Preparations For Pro cedures Start: 01-31-2024 End: 01-31-2024 Telephone encounter Jovany Bahena DO Work Phone: [facility] Comment on above: Physical Therapy Start: 01-30-2024 End: 01-30-2024 Telephone encounter Jovany Bahena DO Work Phone: [facility] Comment on above: Schedule Injection; Physical Therapy Start: 01-24-2024 End: 01-24-2024 Patient encounter procedure Immunization [facility] Nurse [place] Work Phone: [facility] [place] Start: 01-24-2024 End: 01-24-2024 ambulatory Immunization Clinic Nurse Colin Work Phone: Family [facility] Start: 01-17-2024 End: 01-17-2024 ambulatory JOVANY BAHENA Facility:[facility] Start: 01-17-2024 End: 01-17-2024 Patient encounter procedure Jovany Bahena DO Work Phone: [facility] Comment on above: Chronic bilateral lo w back pain with left-sided sciatica (Primary Dx); Lumbar radiculopathy Start: 12-27-2023 End: 12-27-2023 Patient encounter procedure Sahara Boateng MD Work Phone: Neurology Comment on above: NELI on CPAP (Primary Dx); RLS (restless legs syndrome); Fibromyalgia; Chronic insomnia; Class 3 severe obesity with body mass index (BMI) of 40.0 to 44.9 in adult, unspecified obesity type, unspecified whether serious comorbidity present (HCC); Spinal stenosis of lumbar region, unspecified whether neurogenic claudication present Start: 12-27-2023 End: 12-27-2023 ambulatory EMILEE CONDON Facility:[facility] Start: 12-16-2023 End: 12-16-2023 ambulatory EMILEE CONDON Facility:[facility] Start: 12-16-2023 End: 12-16-2023 Patient encounter procedure Emilee Condon MD Work Phone: [facility] [place] Comment on above: Medicare annual well ness visit, subsequent (Primary Dx); Acquired hypothyroidism; Vitamin D deficiency; Class 3 severe obesity due to excess calories with body mass index (BMI) of 40.0 to 44.9 in adult, unspecified whether serious comorbidity present (HCC); TMJ (temporomandibular joint syndrome); Encounter for screening examination for other mental health and behavioral disorders Start: 12-12-2023 End: 12-12-2023 ambulatory Emilee Condon Facility:[facility] Start: 12-03-2023 Telephone encounter Jovany holley DO Work Phone: [facility] Start: 11-28-2023 Refill Emilee garg MD Work Phone: [facility] [place] Comment on above: Refill Request Start: 11-27-2023 End: 11-27-2023 ambulatory EMILEE D TALAMPAS Facility:[facility] Start: 11-27-2023 End: 11-27-2023 Subsequent hospital visit by physician Mri [facility] [place] (I-Stat/3t) MRI [facility] Comment on above: Spinal stenosis of l umbar region with neurogenic claudication [M48.062] Start: 11-24-2023 Telephone encounter Prince tony RACE CAR DRIVER.WEIGHT TRAINING INSTRUCTOR Work Phone: Rheumatology Comment on above: Results Start: 11-18-2023 Documentation procedure Mammog rené Coordinator [facility] Start: 11-18-2023 Letter encounter Mammography Coordinator [facility] Start: 11-15-2023 End: 11-15-2023 ambulatory EMILEE D ANGELOAMPPHU Facility:[facility] Start: 11-15-2023 End: 11-15-2023 Subsequent hospital visit by physician Screen Mammo [facility] Mammogram Comment on above: Encounter for screen ing mammogram for breast cancer [Z12.31] Start: 11-14-2023 Telephone encounter Jovany holley DO Work Phone: [facility] Start: 11-13-2023 End: 11-13-2023 ambulatory EMILEE Alla ROYAS Neurology Start: 11-13-2023 End: 11-13-2023 Patient encounter procedure Emg 2 Neur [facility] (Max Weight: 300) Work Phone: Neurology Start: 10-19-2023 ambulatory Prince West RACE CAR DRIVER.WEIGHT TRAINING INSTRUCTOR Work Phone: Rheumatology Comment on above: Blood work question Start: 10-18-2023 End: 10-18-2023 Patient encounter procedure Jovany Bahena DO Work Phone: [facility] Comment on above: Spinal stenosis of l umbar region with neurogenic claudication (Primary Dx); Spinal stenosis of lumbar region without neurogenic claudication; Weakness of left lower extremity Start: 09-17-2023 End: 09-17-2023 Subsequent hospital visit by physician Ammon [facility] [place] Work Phone: Radiology Comment on above: Stiffness of hand aime int, unspecified laterality [M25.649] Start: 09-17-2023 End: 09-17-2023 Patient encounter procedure Tl Mark MD Work Phone: Otolaryngology Comment on above: Throat irritation (P rimary Dx); Neck pain; Dysphagia, unspecified type Start: 09-13-2023 End: 09-13-2023 Patient encounter procedure Prince West APRN.WEIGHT TRAINING INSTRUCTOR Work Phone: Rheumatology Comment on above: Inflammatory arthrit is (Primary Dx); Osteoarthritis of multiple joints, unspecified osteoarthritis type; Fibromyalgia; Osteoporosis, post menopausal; Stiffness of hand joint, unspecified laterality Start: 09-13-2023 Telephone encounter Shayla yu RDMS, RVT Radiology Comment on above: Appointment Appointment; Orders Start: 08-01-2023 ambulatory Vivien Mcintosh MD Work Phone: Endocrinology Comment on above: Recent thyroid perox idase antibody test result Start: 07-24-2023 Telephone encounter Emilee rios MD Work Phone: [facility] [place] Comment on above: Results Start: 07-15-2023 ambulatory Emilee garg MD Work Phone: [facility] [place] Comment on above: Blood test results Start: 07-10-2023 ambulatory Emilee garg MD Work Phone: Internal Medicine [facility] Start: 06-12-2023 End: 06-12-2023 Office outpatient visit 25 minutes Emilee Condon MD Work Phone: [facility] [place] Comment on above: Acquired hypothyroid ism (Primary Dx); Neck pain; Post-cholecystectomy syndrome; Loose stools; Sleep related teeth grinding/gritting; Dyslipidemia; Class 3 severe obesity due to excess calories with body mass index (BMI) of 40.0 to 44.9 in adult, unspecified whether serious comorbidity present (HCC); Depression, recurrent (HCC); Encounter for immunization Start: 05-31-2023 End: 05-31-2023 ambulatory Vivien Mcintosh MD Work Phone: Endocrinology Comment on above: Multiple thyroid nod ules (Primary Dx) Start: 05-31-2023 End: 05-31-2023 Telemedicine consultation with patient Vivien Mcintosh MD Work Phone: [facility] Start: 05-23-2023 Refill Sahara briseno MD Work Phone: Neurology Comment on above: Refill Request Start: 04-25-2023 ambulatory [facility] Facility:[facility] Start: 04-03-2023 ambulatory Vivien Mcintosh MD Work Phone: [facility] Start: 04-03-2023 Patient encounter procedure Vivien Mcintosh MD Work Phone: Endocrinology Comment on above: Is there still a nee d for our 04/09 appointment? Start: 04-02-2023 Telephone encounter Dayna Lacy i, MD Work Phone: Endocrinology Comment on above: Biopsy Request Start: 04-01-2023 End: 04-01-2023 ambulatory Alize Porterba FIELD SCOUT Work Phone: [facility] Comment on above: Lumbar spondylosis ( Primary Dx); Chronic bilateral low back pain with left-sided sciatica Start: 04-01-2023 Telephone encounter Sarahi Torres MD Work Phone: Rheumatology Comment on above: Appointment Start: 03-29-2023 End: 03-29-2023 ambulatory Alize Kashuba FIELD SCOUT Work Phone: [facility] Comment on above: Lumbar spondylosis ( Primary Dx); Chronic bilateral low back pain with left-sided sciatica Start: 03-26-2023 End: 03-26-2023 ambulatory Alize Kashuba FIELD SCOUT Work Phone: [facility] Comment on above: Lumbar spondylosis ( Primary Dx); Chronic bilateral low back pain with left-sided sciatica Start: 03-22-2023 End: 03-22-2023 Patient encounter procedure Sahara Boateng MD Work Phone: Neurology Comment on above: NELI on CPAP (Primary Dx); RLS (restless legs syndrome); Fibromyalgia; Malaise and fatigue; Excessive daytime sleepiness; Chronic insomnia Start: 03-18-2023 ambulatory Idalmis Pittman [facility] [place] Comment on above: Population Health [facility] ([facility] ) Start: 03-11-2023 End: 03-11-[address] Golias PT Work Phone: [facility] Comment on above: Lumbar spondylosis ( Primary Dx); Chronic bilateral low back pain with left-sided sciatica Start: 03-10-2023 ambulatory Vivien Mcintosh MD Work Phone: Endocrinology Comment on above: Re: Question for upc oming appt. on 04/09/23 Question for upcomin g appt. on 04/09/23 Start: 03-08-2023 End: 03-08-2023 ambulatory Alize [employer] Work Phone: [facility] Comment on above: Lumbar spondylosis ( Primary Dx); Chronic bilateral low back pain with left-sided sciatica Start: 02-28-2023 End: 02-28-[address] Golias [facility] Comment on above: Lumbar spondylosis ( Primary Dx); Chronic bilateral low back pain with left-sided sciatica Start: 02-25-2023 End: 02-25-[address] Golias PT Work Phone: [facility] Comment on above: Lumbar spondylosis ( Primary Dx); Chronic bilateral low back pain with left-sided sciatica Start: 02-20-2023 End: 02-20-2023 ambulatory AlizeOmnigyba FIELD SCOUT Work Phone: [facility] Comment on above: Lumbar spondylosis ( Primary Dx); Chronic bilateral low back pain with left-sided sciatica Start: 02-18-2023 End: 02-18-[address] Golias PT Work Phone: [facility] Comment on above: Lumbar spondylosis ( Primary Dx); Chronic bilateral low back pain with left-sided sciatica Start: 02-11-2023 Telephone encounter Sahara Boateng MD Work Phone: Neurology Comment on above: Orders Start: 02-07-2023 End: 02-07-[address] Ward PT Work Phone: [facility] Comment on above: Lumbar spondylosis; Low back pain without sciatica, unspecified back pain laterality, unspecified chronicity; Chronic bilateral low back pain with left-sided sciatica Start: 02-02-2023 End: 02-02-2023 ambulatory Immunization Clinic Nurse [facility] Work Phone: [facility] [place] Start: 01-30-2023 End: 01-30-2023 Patient encounter procedure Jovany Bahena DO Work Phone: [facility] Comment on above: Lumbar spondylosis; Low back pain without sciatica, unspecified back pain laterality, unspecified chronicity Start: 12-11-2022 ambulatory Ping Older RACE CAR DRIVER .WEIGHT TRAINING INSTRUCTOR Work Phone: [facility] [place] Comment on above: Question Start: 11-26-2022 Telephone encounter Sahara Boateng MD Work Phone: Sleep Comment on above: Medication Problem Start: 11-23-2022 Telephone encounter Emilee rios MD Work Phone: [facility] [place] Comment on above: Medication Problem Start: 11-23-2022 End: 11-23-2022 Patient encounter procedure Ping Older RACE CAR DRIVER.WEIGHT TRAINING INSTRUCTOR Work Phone: [facility] [place] Comment on above: Myalgias (Primary Dx ); Chest tightness; Bilateral lower extremity edema; Muscle weakness; Shortness of breath; Fatigue, unspecified type; Coronary artery disease involving [place] heart without angina pectoris, unspecified vessel or lesion type Start: 11-09-2022 End: 11-09-2022 Office outpatient visit 25 minutes Emilee Condon MD Work Phone: [facility] [place] Comment on above: Coronary artery dise ase involving [place] coronary artery of [place] heart without angina pectoris (Primary Dx); Dyslipidemia; Class 3 severe obesity due to excess calories with body mass index (BMI) of 40.0 to 44.9 in adult, unspecified whether serious comorbidity present (HCC); Depression, recurrent (HCC); Intermittent claudication (HCC); Left leg numbness; Acquired hypothyroidism Start: 10-10-2022 End: 10-10-2022 ambulatory Prince West RACE CAR DRIVER.WEIGHT TRAINING INSTRUCTOR Work Phone: Rheumatology Comment on above: Inflammatory arthrit is (Primary Dx); Osteoarthritis of multiple joints, unspecified osteoarthritis type; Fibromyalgia; Lumbar spondylosis; Osteoporosis, post menopausal; Low back pain without sciatica, unspecified back pain laterality, unspecified chronicity Start: 10-10-2022 End: 10-10-2022 Telemedicine consultation with patient Prince West APRN.WEIGHT TRAINING INSTRUCTOR Work Phone: [facility] Start: 10-01-2022 End: 10-01-2022 Subsequent hospital visit by physician Xr [facility] Work Phone: Radiology Comment on above: Pain [R52] Start: 08-28-2022 Refill Sahara briseno MD Work Phone: [facility] [place] Comment on above: Refill Request Start: 08-20-2022 End: 08-20-2022 Subsequent hospital visit by physician Xr [facility] Work Phone: Radiology Comment on above: Wrist injury, left, initial encounter [S69.92XA] Start: 08-09-2022 End: 08-09-2022 Patient encounter procedure Black Pitts MD Work Phone: General Surgery Comment on above: Tubular adenoma of c olon (Primary Dx) Start: 08-06-2022 End: 08-06-2022 Office outpatient visit 40 minutes Emilee Condon MD Work Phone: [facility] [place] Comment on above: Sprain of left wrist , subsequent encounter (Primary Dx); Coronary artery disease involving [place] coronary artery of [place] heart without angina pectoris; Post-cholecystectomy syndrome; Loose stools; Acquired hypothyroidism; Vitamin D deficiency; Encounter for long-term current use of medication; Class 3 severe obesity due to excess calories with body mass index (BMI) of 40.0 to 44.9 in adult, unspecified whether serious comorbidity present ([facility]) Start: 08-01-2022 ambulatory UNKNOWN PROVIDER Facili ty:[facility] Start: 08-01-2022 End: 08-01-2022 Subsequent hospital visit by physician Black Pitts MD Work Phone: [facility] Endoscopy Comment on above: History of colonic p olyps [Z86.010] Start: 07-27-2022 End: 07-27-[address] Emilee Condon Work Phone: [facility] Work Phone: Start: 07-27-2022 End: 07-27-[address] Emilee Condon Work Phone: [facility] Start: 07-25-2022 End: 07-25-2022 Admission to establishment Pac [place] 2 Work Phone: [facility] Start: 07-25-2022 End: 07-25-2022 ambulatory Pac [place] 2 Work Phone: Pre Anesthesia Comment on above: Pre-op evaluation (P rimary Dx); Encounter for screening for malignant neoplasm of colon; Hypertension, unspecified type; Coronary artery disease involving [place] heart without angina pectoris, unspecified vessel or lesion type; Fibromyalgia; Obstructive sleep apnea (adult) (pediatric); Acquired hypothyroidism; Class 3 severe obesity due to excess calories without serious comorbidity with body mass index (BMI) of 40.0 to 44.9 in adult (HCC) Start: 07-25-2022 End: 07-25-2022 Preprocedural examination done Pac [place] 2 Work Phone: Pre Anesthesia Start: 07-24-2022 End: 07-24-2022 Patient encounter procedure Mar Williamson PA-C Work Phone: [facility] Comment on above: Wrist injury, left, initial encounter (Primary Dx) Start: 07-24-2022 End: 07-24-2022 Subsequent hospital visit by physician Ammon [facility] Work Phone: Radiology Comment on above: Wrist injury, left, initial encounter [S69.92XA] Start: 07-20-2022 Non-patient / Non-visit Dr. Lia Condon Work Phone: [facility] Start: 07-20-2022 End: 07-20-[address] Emilee Condon Work Phone: [facility] Work Phone: Start: 07-20-2022 End: 07-20-[address] Emilee Condon Work Phone: [facility]-Cardiovascula r Services Start: 07-10-2022 Non-patient / Non-visit Dr. Lia Condon Work Phone: [facility] Start: 07-10-2022 End: 07-10-[address] Emilee Condon Work Phone: [facility] Work Phone: Start: 07-10-2022 End: 07-10-2022 Patient encounter procedure Vivien Mcintosh MD Work Phone: Endocrinology Comment on above: Thyroid nodule great er than or equal to 1 cm in diameter incidentally noted on imaging study (Primary Dx); Multiple thyroid nodules Start: 07-02-2022 End: 07-02-[address] Emilee Condon Work Phone: [facility] Start: 06-26-2022 End: 06-26-2022 Patient encounter procedure Iman Kumari PA-C Work Phone: General Surgery Comment on above: History of colonic p olyps (Primary Dx); Colon cancer screening Start: 06-16-2022 End: 06-16-2022 Emergency department patient visit Dr. Emilee Condon Work Phone: [facility]-Emergency Department Start: 06-11-2022 Telephone encounter Black chance MD Work Phone: General Surgery Comment on above: Appointment Start: 06-11-2022 End: 06-11-2022 Admission to same day surgery center Dr. Emilee Condon Work Phone: [facility]-Customer Service Professional/Special Procedures Start: 06-11-2022 End: 06-11-[address] Emilee Condon Work Phone: [facility] Work Phone: Start: 06-01-2022 Non-patient / Non-visit Dr. Lia Condon Work Phone: [facility] Start: 06-01-2022 End: 06-01-[address] Emilee Condon Work Phone: [facility] Work Phone: Start: 06-01-2022 End: 06-01-[address] Emilee Condon Work Phone: [facility]-Cardiovascula r Services Start: 05-28-2022 Telephone encounter Sahara Boateng MD Work Phone: [facility] [place] Comment on above: Medication Problem Start: 05-27-2022 Refill Emilee garg MD Work Phone: Internal [facility] [place] Comment on above: Refill Request Start: 05-16-2022 End: 05-16-[address] Emilee Condon Work Phone: [facility] Start: 05-14-2022 End: 05-14-2022 Emergency department patient visit [facility]-Emergency Department Start: 04-11-2022 End: 04-11-2022 Subsequent hospital visit by physician [facility] Work Phone: Radiology Comment on above: Canceled (CC cx: Equ ipment, Prep, Appropriateness) Breast nodule [N63.0 ] Start: 03-30-2022 End: 03-30-2022 ambulatory [facility] Comment on above: Chronic pain of both shoulders (Primary Dx) Start: 03-23-2022 End: 03-23-2022 ambulatory Faye O'Cheng PT [facility] Physical Therapy Comment on above: Chronic pain of both shoulders (Primary Dx) Start: 03-14-2022 Telephone encounter Emilee rios MD Work Phone: Internal Medicine [place] Comment on above: Consult Start: 03-10-2022 ambulatory Emilee garg MD Work Phone: Internal Medicine [place] Comment on above: US THYROID/PARATHYRO ID test results Start: 03-09-2022 End: 03-09-2022 Patient encounter procedure Bri Moreno MD Work Phone: OB/Gynecology Comment on above: Mass of right breast , unspecified quadrant (Primary Dx) Start: 03-08-2022 End: 03-08-2022 Subsequent hospital visit by physician [facility] Work Phone: Radiology Comment on above: Thyroid nodule great er than or equal to 1 cm in diameter incidentally noted on imaging study [E04.1] Start: 03-07-2022 End: 03-07-2022 Office outpatient visit 40 minutes Emilee Condon MD Work Phone: Internal Medicine [place] Comment on above: Diastolic dysfunctio n without heart failure (Primary Dx); GARCIA (dyspnea on exertion); Intermittent palpitations; Osteopenia of multiple sites; Elevated BP without diagnosis of hypertension; Class 3 severe obesity due to excess calories with body mass index (BMI) of 40.0 to 44.9 in adult, unspecified whether serious comorbidity present (HCC); Thyroid nodule greater than or equal to 1 cm in diameter incidentally noted on imaging study; Breast nodule Start: 03-02-2022 End: 03-02-2022 ambulatory Faye Garza'Cheng PT [facility] Physical Therapy Comment on above: Chronic pain of both shoulders (Primary Dx) Start: 03-02-2022 Telephone encounter Emilee rios MD Work Phone: [address] [place] [address] Comment on above: Orders Start: 02-28-2022 End: 02-28-2022 Subsequent hospital visit by physician Bone D[facility] Work Phone: Radiology Comment on above: Osteopenia of neck o f left femur [M85.852] Start: 02-27-2022 Patient encounter procedure Emilee Condon MD Work Phone: Internal Medicine [place] Start: 02-27-2022 Telephone encounter Emilee rios MD Work Phone: Internal Medicine [place] Comment on above: Consult Start: 02-26-2022 Refill Sahara briseno MD Work Phone: Neurology Comment on above: Refill Request Start: 02-23-2022 End: 02-23-2022 Subsequent hospital visit by physician [facility] Work Phone: Cat Scan Comment on above: Bilateral lower extr emity edema [R60.0] Start: 02-21-2022 End: 02-21-2022 ambulatory Faye O'Cheng PT [facility] Physical Therapy Comment on above: Chronic pain of both shoulders (Primary Dx) Start: 02-16-2022 End: 02-16-2022 ambulatory Faye O'Cheng PT [place] [facility] Physical Therapy Comment on above: Chronic pain of both shoulders (Primary Dx) Start: 02-05-2022 End: 02-05-2022 Subsequent hospital visit by physician [facility] Work Phone: Radiology Comment on above: GARCIA (dyspnea on exer tion) [R06.09] Start: 02-05-2022 End: 02-05-2022 Office outpatient visit 25 minutes Emilee Condon MD Work Phone: Internal Medicine [place] Comment on above: GARCIA (dyspnea on exer tion) (Primary Dx); Intermittent palpitations; Sinus tachycardia by electrocardiogram; Bilateral leg edema; Encounter for immunization Start: 2022 Telephone encounter Emilee rios MD Work Phone: Internal Medicine [place] Comment on above: heart palpatations Start: 01-31-2022 End: 01-31-2022 ambulatory Mi Nurse Work Phone: Family Medicine [place] Start: 01-24-2022 End: 01-24-2022 ambulatory Sarahi Alfredo MD Work Phone: Rheumatology Comment on above: Chronic pain of both shoulders (Primary Dx); Inflammatory arthritis; Osteoarthritis of multiple joints, unspecified osteoarthritis type; Spinal stenosis, lumbar region, without neurogenic claudication; Lumbar spondylosis; Fibromyalgia; Pain in joint, multiple sites Start: 01-24-2022 End: 01-24-2022 Telemedicine consultation with patient Sarahi Alfredo MD Work Phone: [facility] Start: 01-08-2022 Telephone encounter Sarahi Torres MD Work Phone: Rheumatology Comment on above: Appointment Start: 12-11-2021 ambulatory Emilee garg MD Work Phone: Internal Medicine [place] Comment on above: Covid test results Start: 12-10-2021 End: 12-10-2021 Patient encounter procedure Erika Pinedo APRN.WEIGHT TRAINING INSTRUCTOR Work Phone: [place] [facility] Comment on above: Sinus pressure (Prim tera Dx); URI, acute Start: 10-04-2021 ambulatory Prince West APRN.WEIGHT TRAINING INSTRUCTOR Work Phone: Rheumatology Comment on above: Possible side effect of Hydroxychloroquine Start: 09-29-2021 End: 09-29-2021 Patient encounter procedure Prince West APRN.WEIGHT TRAINING INSTRUCTOR Work Phone: Rheumatology Comment on above: Inflammatory arthrit is (Primary Dx); Fibromyalgia; Encounter for long-term (current) use of medications Start: 09-12-2021 ambulatory Emilee garg MD Work Phone: Internal Medicine [place] Comment on above: Overdose Start: 09-10-2021 ambulatory Emilee garg MD Work Phone: Internal Medicine [place] Comment on above: BUN test results Start: 09-04-2021 End: 09-04-2021 Office outpatient visit 25 minutes Emilee Condon MD Work Phone: Internal Medicine [place] Comment on above: Acquired hypothyroid ism (Primary Dx); Elevated glucose; Class 3 severe obesity due to excess calories without serious comorbidity with body mass index (BMI) of 40.0 to 44.9 in adult (HCC); Dyslipidemia; COVID-19 virus infection; Spinal stenosis of lumbar region with neurogenic claudication; Fibromyalgia; Medication management Start: 08-28-2021 End: 08-28-2021 Patient encounter procedure Sahara Boateng MD Work Phone: Neurology Comment on above: RLS (restless legs s yndrome) (Primary Dx); Fibromyalgia; NELI on CPAP Start: 08-14-2021 Telephone encounter Emilee rios MD Work Phone: Internal Medicine [place] Comment on above: Patient Update; FYI- No Action Needed Start: 03-08-2021 End: 03-08-2021 Subsequent hospital visit by physician [facility] Work Phone: Radiology Comment on above: GARCIA (dyspnea on exer tion) [R06.00] Start: 12-14-2020 End: 12-14-2020 Subsequent hospital visit by physician [facility] Work Phone: Radiology Comment on above: Pain in joint, multi ple sites [M25.50] Procedures Date Procedure Procedure Detail Performing Clinician Start: 09-25-2024 Urnls dip stick/tabl et rgnt auto w/o microscopy Eric Romano PA-C Work Phone: Start: 08-21-2024 Radiologic exam ches t 2 views Faye Norton RACE CAR DRIVER.WEIGHT TRAINING INSTRUCTOR Work Phone: Start: 06-15-2024 Hemoglobin A1c/Hemoglobin.total in Blood Emilee Condon MD Work Phone: Start: 06-10-2024 Lipid 1996 panel - S tressa or Plasma Sahara Boateng Jr., MD Work Phone: Start: 03-31-2024 Urnls dip stick/tabl et rgnt auto w/o microscopy Mar Williamson PA-C Work Phone: Start: 03-20-2024 Us compl joint r-t w /image documentation Prince West RACE CAR DRIVER.WEIGHT TRAINING INSTRUCTOR Work Phone: Start: 02-21-2024 Urnls dip stick/tabl et rgnt auto w/o microscopy Kasie Limon RACE CAR DRIVER.COMMERCIAL CARPENTER Work Phone: Start: 11-27-2023 Mri spinal canal lum bar w/o contrast material Jovany Ramosry DO Work Phone: Start: 11-13-2023 Nerve conduction rosana dies 5-6 studies Jovany Bahena DO Work Phone: Start: 09-17-2023 Radex hand minimum 3 views Prince West RACE CAR DRIVER.WEIGHT TRAINING INSTRUCTOR Work Phone: Start: 07-11-2023 Lipid 1995 panel - S tressa or Plasma Emilee Condon MD Work Phone: Start: 02-09-2023 Lipid 1995 panel - S tressa or Plasma Sahara Boateng Jr., MD Work Phone: Start: 02-02-2023 INFLUENZA VACCINE, P RSV FREE, AGE 65+ YR, HIGH DOSE, QUADRIVALENT (FLUZONE HIGH-DOSE) Emilee Condon MD Work Phone: Start: 11-23-2022 Ecg routine ecg w/le ast 12 lds i&r only [facility] Provider Start: 10-01-2022 Radex wrist complete minimum 3 views Caesar Garcia PA-C Work Phone: Start: 09-21-2022 Lipid 1996 panel - S tressa or Plasma Jovany Bahena DO Work Phone: Start: 08-20-2022 Radex wrist complete minimum 3 views Caesar Garcia PA-C Start: 08-01-2022 SURGICAL PATHOLOGY Darrius Pitts MD Work Phone: Start: 08-01-2022 Colonoscopy flx dx w /collj spec when pfrmd Imanhannah Kumari PA-C Work Phone: Start: 08-01-2022 Colonoscopy Black chase MD Work Phone: Start: 07-24-2022 Radex wrist complete minimum 3 views Mar Williamson PA-C Work Phone: Start: 06-16-2022 Plain chest X-ray Dr. Lu Condon Work Phone: Start: 06-16-2022 Radiologic examinati on of knee Dr. Emilee Condon Work Phone: Start: 06-01-2022 Cardiovascular stres s test using pharmacologic stress agent Dr. Emilee Condon Work Phone: Start: 05-14-2022 Plain chest X-ray Start: 05-14-2022 CT of head without contrast Start: 04-11-2022 End: 04-11-2022 Mammography Sarina Reeves RACE CAR DRIVER.CN P Work Phone: Start: 03-08-2022 Us soft tissue head & neck real time imge docm Sarina Reeves RACE CAR DRIVER.WEIGHT TRAINING INSTRUCTOR Work Phone: Start: 02-28-2022 Dxa bone density rosana dy 1/> sites axial skel Faye Atikns RACE CAR DRIVER.CNM Work Phone: Start: 02-23-2022 Ct thorax w/o contra st material Emilee Condon MD Work Phone: Start: 02-05-2022 Radiologic exam ches t 2 views Emilee Condon MD Work Phone: Start: 01-31-2022 INFLUENZA SEASONAL QUADRIVALENT HIGH DOSE AGE 65+ Emilee Condon MD Work Phone: Start: 04-17-2021 Mammography Emilee méndez MD Work Phone: Start: 03-08-2021 Radiologic exam ches t 2 views Emilee Condon MD Work Phone: Start: 12-14-2020 Radex hand minimum 3 views Sarahi Alfredo MD Work Phone: Start: 07-29-2017 Colonoscopy Emilee méndez MD Work Phone: Bacteria identified in Blood by Culture Dr. Emilee Condon Work Phone: SARS-CoV-2 & FLU Ant igen (Rapid) Dr. Emilee Condon Work Phone: Urine culture Dr. Emilee méndez Work Phone: Plan of Treatment Date Care Activity Detail Author Start: 06-10-2029 Lipid panel Lipid Screening [facility] Start: 07-10-2028 Lipid panel Lipid Screening [facility] Start: 02-10-2028 Lipid 1996 panel - Serum or Plasma Lipid Screening [facility] Start: 02-10-2028 Lipid panel Lipid Screening [facility] Start: 09-22-2027 Lipid 1996 panel - Serum or Plasma Lipid Screening [facility] Start: 09-22-2027 L[address]EN L[address]ID SCREEN [facility] Start: 08-02-[address] [facility] Start: 08-02-2027 COLORECTAL CANCER SCREENING COLORECTAL CANCER SCREENING [facility] Start: 08-02-2027 Screening for malignant neoplasm of colon [facility] Start: 06-15-2027 Diabetes Screening Diabetes Screening [facility] Start: 09-09-2026 LIPID SCREEN LIPID SCREEN [facility] Start: 07-10-2026 Diabetes Screening Diabetes Screening [facility] Start: 03-06-2026 LIPID SCREEN LIPID SCREEN [facility] Start: 03-02-2026 Screening for osteoporosis Bone Density Screening [facility] Start: 11-23-2025 DIABETES SCREEN DIABETES SCREEN [facility] Start: 11-23-2025 Diabetes Screening Diabetes Screening [facility] Start: 09-21-2025 DIABETES SCREEN DIABETES SCREEN [facility] Start: 08-25-2025 Annual PCP Team Chronic Disease Visit Annual PCP Team Chronic Disease Visit [facility] Start: 08-14-2025 Screening for malignant neoplasm of cervix Cervical Cancer Screening [facility] Start: 07-12-2025 End: 07-12-2025 Patient encounter procedure 07/12/2025 11:00 AM EDT Office Visit Internal Medicine [place] [address] [place] [id number] Emilee Condon MD [address] [place] [place] [id number] 6 month follow up Internal Medicine [place] Comment on above: 6 month follow up Start: 07-10-2025 Annual PCP Team Chronic Disease Visit Annual PCP Team Chronic Disease Visit [facility] Start: 07-07-2025 End: 07-07-2025 Patient encounter procedure 07/07/2025 1:20 PM EDT Office Visit Rheumatology [address] [place] [address] Sarahi Alfredo MD [address] [place] [address] 1yr follow up Rheumatology Comment on above: 1yr follow up Start: 06-15-2025 Annual PCP Team Chronic Disease Visit Annual PCP Team Chronic Disease Visit [facility] Start: 06-10-2025 Hepatitis B surface antibody level LDL Cholesterol [facility] Start: 03-31-2025 BP Controlled (<130/80) BP Controlled (<130/80) [facility] Start: 02-24-2025 BP Controlled (<130/80) BP Controlled (<130/80) [facility] Start: 02-03-2025 DIABETES SCREEN DIABETES SCREEN [facility] Start: 12-29-2024 End: 12-29-2024 Patient encounter procedure 12/29/2024 1:20 PM EDT Office Visit Internal Medicine [place] [address] [place] [address] Emilee Condon MD [address] [place] [address] Medicare Wellness Visit Internal Medicine [place] Comment on above: Medicare Wellness Visit Start: 12-28-2024 End: 12-28-2024 Patient encounter procedure Neurology Comment on above: 6 month follow up Start: 12-26-2024 BP Controlled (<130/80) BP Controlled (<130/80) [facility] Start: 12-15-2024 Annual PCP Team Chronic Disease Visit Annual PCP Team Chronic Disease Visit [facility] Start: 12-15-2024 Anxiety Screening Anxiety Screening [facility] Start: 12-15-2024 BP Controlled (<130/80) BP Controlled (<130/80) [facility] in Start: 12-15-2024 Medicare Annual Wellness Visit Medicare Annual Wellness Visit [facility] Start: 12-09-2024 End: 12-09-2024 Patient encounter procedure 12/09/2024 2:30 PM EDT Office Visit [facility] [address] [facility] [id number] Aria Lo DO [address] [place] [address] [facility] ([facility]) Comment on above: Salivary Gland Start: 12-09-2024 Covid-19 Vaccine (7 - Moderna risk season) Covid-19 Vaccine (7 - Moderna risk season) [facility] Start: 12-09-2024 Covid-19 Vaccine ( - season) Covid-19 Vaccine ( - season) [facility] Start: 12-07-2024 End: 12-07-2024 Patient encounter procedure 12/07/2024 1:30 PM EDT Office Visit Rheumatology [address] [place] [address] Prince West APRN.WEIGHT TRAINING INSTRUCTOR [address] [place] [address] Follow up - arthritis Rheumatology Comment on above: Follow up - arthritis Start: 11-16-2024 End: 11-16-2024 Patient encounter procedure 11/16/2024 10:10 AM EDT Appointment Mammogram [address] [place] [address] Encounter for screening mammogram for breast cancer [Z12.31] Mammogram Comment on above: Encounter for screening mammogram for br east cancer [Z12.31] Start: 11-14-2024 Screening for malignant neoplasm of breast Mammogram Screening [facility] Start: 11-12-2024 End: 02-11-2025 Hemoglobin A1c in Blood HEMOGLOBIN A1C Lab Routine IFG (impaired fasting glucose) Expected: 11/12/2024 (Approximate), Expires: 02/11/2025 [facility] Work Phone: Comment on above: Expected: 11/12/2024 (Approximate), Expi res: 02/11/2025 Start: 11-12-2024 End: 11-12-2024 ambulatory 11/12/2024 9:00 AM EDT Results Only [place] Patel [facility] [address] [place] [address] [place] Adkinswn [facility] Start: 11-09-2024 End: 11-09-2024 Follow-up encounter 11/09/2024 1:45 PM EDT Education Nutrition Therapy [address] [place] [address] Aspen Ceballos, RD [address] [place] [address] 6 week follow up Nutrition Therapy Comment on above: 6 week follow up Start: 10-01-2024 End: 10-01-2024 ambulatory 10/01/2024 11:15 AM EDT Results Only [place] Patel [facility] [address] [place] [address] [place] [facility] Start: 09-28-2024 End: 09-28-2024 Nutrition therapy 09/28/2024 1:45 PM EDT Education Nutrition Therapy [address] [place] [address] Aspen Ceballos, RD [address] [place] [address] Class 3 severe obesity with body mass index (BMI) of 40.0 to 44.9 in adult, unspecified obesity type, unspecified whether serious comorbidity present (HCC) [E66.813, E66.01, Z68.41] Nutrition Therapy Comment on above: Class 3 severe obesity with body mass in dex (BMI) of 40.0 to 44.9 in adult, unspecified obesity type, unspecified whether serious comorbidity present (HCC) [E66.813, E66.01, Z68.41] Start: 09-25-2024 End: 09-25-2024 Patient encounter procedure 09/25/2024 11:00 AM EDT Appointment Radiology [address] [place] [address] Radiology Start: 09-21-2024 End: 09-24-2025 XR Chest PA and Lateral XR CHEST 2V FRONTAL/LAT Radiology Routine Acute respiratory infection Abnormal CXR Expected: 09/21/2024 (Approximate), Expires: 09/24/2025 [facility] Work Phone: Comment on above: Expected: 09/21/2024 (Approximate), Expi res: 09/24/2025 Start: 09-12-2024 BP Controlled (<130/80) BP Controlled (<130/80) [facility]ic Start: 09-09-2024 DIABETES SCREEN DIABETES SCREEN [facility] Start: 09-07-2024 End: 09-07-2024 Nutrition therapy 09/07/2024 11:00 AM EDT Education [facility] [address] [place] [address] [address]os, RD [address] [place] [address] Class 3 severe obesity with body mass index (BMI) of 40.0 to 44.9 in adult, unspecified obesity type, unspecified whether serious comorbidity present (HCC) [E66.813, E66.01, Z68.41] Nutrition Therapy Comment on above: Class 3 severe obesity with body mass in dex (BMI) of 40.0 to 44.9 in adult, unspecified obesity type, unspecified whether serious comorbidity present (HCC) [E66.813, E66.01, Z68.41] Start: 08-24-2024 End: 08-24-2024 Nutrition therapy 08/24/2024 11:00 AM EDT Education Nutrition Therapy [address] [place] [address] [address] Ceballos, RD [address] [place] [address] Class 3 severe obesity with body mass index (BMI) of 40.0 to 44.9 in adult, unspecified obesity type, unspecified whether serious comorbidity present (HCC) [E66.813, E66.01, Z68.41] Nutrition Therapy Comment on above: Class 3 severe obesity with body mass in dex (BMI) of 40.0 to 44.9 in adult, unspecified obesity type, unspecified whether serious comorbidity present (HCC) [E66.813, E66.01, Z68.41] Start: 08-14-2024 End: 08-14-2024 Patient encounter procedure 08/14/2024 10:15 AM EDT Office Visit OB/Gynecology [address] [place] [address] Donnie Hernandez APRN.WEIGHT TRAINING INSTRUCTOR [address] [place] [address] annual OB/Gynecology Comment on above: annual Start: 08-06-2024 End: 08-06-2024 ambulatory 08/06/2024 11:15 AM EDT Results Only [place] Adkinswn [facility] [address] [place] [address] [place] [facility] Start: 07-23-2024 End: 07-23-2024 Patient encounter procedure Vasculary Surgery Comment on above: Peripheral vascular disease (HCC) [I73.9 ] Primary hypertension [I10]; Episodic lightheadedness [R42] Start: 07-20-2024 End: 07-20-2024 Nutrition therapy 07/20/2024 11:00 AM EDT Education Nutrition Therapy [address] [place] [address] Aspen Ceballos, RD [address] [place] [address] Class 3 severe obesity with body mass index (BMI) of 40.0 to 44.9 in adult, unspecified obesity type, unspecified whether serious comorbidity present (HCC) [E66.813, E66.01, Z68.41] Nutrition Therapy Comment on above: Class 3 severe obesity with body mass in dex (BMI) of 40.0 to 44.9 in adult, unspecified obesity type, unspecified whether serious comorbidity present (HCC) [E66.813, E66.01, Z68.41] Start: 07-10-2024 Hepatitis B surface antibody level LDL Cholesterol [facility] Start: 07-10-2024 End: 07-10-2024 Patient encounter procedure Internal Medicine [place] Comment on above: Hopstial Follow up [facility] 06/30/2024 Hopstial Follow up W 06/30/2024. Will be brining blood pressure cuff from home to be checked. Start: 07-07-2024 End: 07-07-2024 Patient encounter procedure Rheumatology Comment on above: Follow up - arthritis Start: 07-01-2024 End: 07-01-2024 Patient encounter procedure 07/01/2024 3:00 PM EDT Office Visit Internal Medicine [place] [address] [facility] [address] Sarina Reeves APRN.WEIGHT TRAINING INSTRUCTOR [address] [facility] [place] [address] intermittent dizziness, see 06/30/24 triage encounter Internal Medicine [place] Comment on above: intermittent dizziness, see 06/30/24 tria ge encounter Start: 06-26-2024 End: 06-26-2024 Patient encounter procedure Neurology Comment on above: Follow up 6 months RLS, Neli, pap RLS, NELI on pap- TEX 12/26 WJN, SHIKHA & Trazdone- ON [facility] Start: 06-15-2024 End: 06-15-2024 Patient encounter procedure 06/15/2024 9:40 AM EST Office Visit Internal Medicine [place] [address] [facility] [place] [facility] [place] [address] Emilee [place] MD [address] [place] [address] 6 month follow up Internal Medicine [place] Comment on above: 6 month follow up Start: 06-12-2024 Annual PCP Team Chronic Disease Visit Annual PCP Team Chronic Disease Visit [facility] Start: 06-10-2024 End: 06-10-2024 ambulatory 06/10/2024 9:45 AM EST Results Only [place] [facility] [address] [place] [address] [facility] Start: 06-08-2024 End: 09-07-2024 CBC panel - Blood by Automated count COMPLETE BLOOD COUNT Lab Routine Encounter for long-term current use of medication Expected: 06/08/2024, Expires: 09/07/2024 [facility] Comment on above: Expected: 06/08/2024, Expires: Start: 06-08-2024 End: 09-07-2024 Comprehensive metabolic 2000 panel - Serum or Plasma COMPREHENSIVE METABOLIC PANEL Lab Routine Encounter for long-term current use of medication Expected: 06/08/2024, Expires: 09/07/2024 [facility] Work Phone: Comment on above: Expected: 06/08/2024, Expires: Start: 06-08-2024 End: 09-07-2024 Lipid 1996 panel - Serum or Plasma LIPID PANEL BASIC Lab Routine Encounter for long-term current use of medication Dyslipidemia Expected: 06/08/2024, Expires: 09/07/2024 [facility] Comment on above: Expected: 06/08/2024, Expires: Start: 06-08-2024 End: 09-07-2024 Rheumatoid factor [Units/volume] in Serum or Plasma RHEUMATOID FACTOR Lab Routine Encounter for long-term current use of medication Polyarthritis Expected: 06/08/2024, Expires: 09/07/2024 [facility] Comment on above: Expected: 06/08/2024, Expires: Start: 04-22-2024 Advance Directive Discussion Advance Directive Discussion [facility] Start: 04-10-2024 End: 07-10-2024 Bacteria identified in Urine by Culture URINE CULTURE Microbiology Routine Acute UTI Expected: 04/10/2024, Expires: 07/10/2024 [facility] Comment on above: Expected: 04/10/2024, Expires: Start: 04-10-2024 End: 07-10-2024 Urinalysis complete panel - Urine URINALYSIS, WITH MICROSCOPIC Lab Routine Acute UTI Expected: 04/10/2024, Expires: 07/10/2024 [facility] Work Phone: Comment on above: Expected: 04/10/2024, Expires: Start: 03-27-2024 End: 03-27-2024 ambulatory 03/27/2024 11:15 AM EST Results Only [place] Patel [facility] [address] [place] [address] [place] [facility] Start: 03-26-2024 End: 06-25-2024 URINALYSIS, REFLEX MICROSCOPIC URINALYSIS, REFLEX MICROSCOPIC Lab Routine Urgency of urination Urinary tract infection without hematuria, site unspecified Expected: 03/26/2024, Expires: 06/25/2024 [facility] Work Phone: Comment on above: Expected: 03/26/2024, Expires: Start: 03-25-2024 End: 03-25-2024 Follow-up encounter 03/25/2024 10:30 AM EST [facility] Rheumatology [address] [place] [address] [place] APRN.WEIGHT TRAINING INSTRUCTOR [address] [place] [address] MRI RESULTS FOLLOW UP Rheumatology Comment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 Patient Education [facility] Work Phone: Patient referral [facility] Work Phone: PT PLAN OF CARE CERTIFICATION PT PLAN OF CARE CERTIFICATION Procedures Routine Chronic pain of both shoulders Ordered: 02/16/2022 [facility] Comment on above: Ordered: 02/16/2022 SARS-CoV-2 (COVID-19 ) RNA [Presence] in Respiratory specimen by MORALES with probe detection 2019 CORONAVIRUS Microbiology Routine URI, acute Ordered: 12/10/2021 [facility] Work Phone: Comment on above: Ordered: 12/10/2021 End: 03-29-2023 Screening mammography bi 2-view breast inc cad SIL SCREENING Radiology Routine Encounter for screening mammogram for breast cancer 1 Occurrences starting 03/02/2022 until 03/29/2023 [facility] Work Phone: Comment on above: 1 Occurrences starting 03/02/2022 until 03/29/2023 End: 12-15-2024 Thyrotropin [Units/volume] in Serum or Plasma THYROID STIMULATING HORMONE Lab Routine Acquired hypothyroidism Every 2 months for 60 Occurrences starting 12/16/2023 until 12/15/2024 [facility] Work Phone: Comment on above: Every 2 months for 60 Occurrences starti ng 12/16/2023 until 12/15/2024 End: 12-15-2024 Thyroxine (T4) free [Mass/volume] in Serum or Plasma T4 FREE/FREE THYROXINE Lab Routine Acquired hypothyroidism Every 2 months for 60 Occurrences starting 12/16/2023 until 12/15/2024 [facility] Comment on above: Every 2 months for 60 Occurrences starti ng 12/16/2023 until 12/15/2024 End: 12-15-2024 Triiodothyronine (T3) Free [Mass/volume] in Serum or Plasma T3, FREE Lab Routine Acquired hypothyroidism Every 2 months for 60 Occurrences starting 12/16/2023 until 12/15/2024 [facility] Comment on above: Every 2 months for 60 Occurrences starti ng 12/16/2023 until 12/15/2024 UA DIP B/O UA DIP B/O Lab R outine Urgency of urination Ordered: 02/21/2024 [facility] Work Phone: Comment on above: Ordered: 02/21/2024 End: 04-01-2023 Us breast uni real time with image limited US BREAST LTD RT Radiology Routine Breast nodule Abnormal finding on breast imaging 1 Occurrences starting 03/02/2022 until 04/01/2023 [facility] Work Phone: Comment on above: 1 Occurrences starting 03/02/2022 until 04/01/2023 End: 07-10-2025 US Carotid arteries - bilateral US CAROTID ARTERIES [facility] Vascular Lab Routine Primary hypertension Episodic lightheadedness 1 Occurrences starting 07/10/2024 until 07/10/2025 [facility] Work Phone: Comment on above: 1 Occurrences starting 07/10/2024 until 07/10/2025 End: 07-10-2025 US Lower extremity artery - bilateral PVR LEG [facility] Vascular Lab Routine Peripheral vascular disease (HCC) 1 Occurrences starting 07/10/2024 until 07/10/2025 [facility] Comment on above: 1 Occurrences starting 07/10/2024 until 07/10/2025 End: 03-29-2023 Us soft tissue head & neck real time imge docm US THYROID/PARATHYROID Radiology Routine Well woman exam with routine gynecological exam 1 Occurrences starting 03/02/2022 until 03/29/2023 [facility] Work Phone: Comment on above: 1 Occurrences starting 03/02/2022 until 03/29/2023 End: 04-01-2023 Us soft tissue head & neck real time imge docm US THYROID/PARATHYROID Radiology Routine Thyroid nodule greater than or equal to 1 cm in diameter incidentally noted on imaging study 1 Occurrences starting 03/02/2022 until 04/01/2023 [facility] Work Phone: Comment on above: 1 Occurrences starting 03/02/2022 until 04/01/2023 End: 10-12-2024 US Upper extremity - left US HAND/WRIST SYNOVIAL SCREEN LEFT Radiology Routine Inflammatory arthritis Stiffness of hand joint, unspecified laterality 1 Occurrences starting 09/13/2023 until 10/12/2024 [facility] Comment on above: 1 Occurrences starting 09/13/2023 until 10/12/2024 End: 10-12-2024 US Upper extremity - right US HAND/WRIST SYNOVIAL SCREEN RIGHT Radiology Routine Inflammatory arthritis Stiffness of hand joint, unspecified laterality 1 Occurrences starting 09/13/2023 until 10/12/2024 [facility] Comment on above: 1 Occurrences starting 09/13/2023 until 10/12/2024 XR Chest PA and Lateral XR CHEST 2V FRONTAL/LAT Radiology Routine Acute respiratory infection Abnormal CXR 09/25/2024 11:04 AM EDT [facility] Work Phone: End: 10-12-2024 XR Hand - bilateral PA and Lateral and Oblique XR HAND GENERAL 3V PA/LAT/OBL BILATERAL Radiology Routine Stiffness of hand joint, unspecified laterality 1 Occurrences starting 09/13/2023 until 10/12/2024 [facility] Comment on above: 1 Occurrences starting 09/13/2023 until 10/12/2024 [facility] Immunizations Immunization Date Immunization Notes Care Provider Fa tita 06-11-2024 COVID-19 vaccine, unspecified formulation Sahara Boateng Jr., MD Work Phone: [facility] 01-24-2024 influenza, high dose seasonal, preservative-free Immunization Colin Work Phone: [facility] 02-02-2023 influenza (HD-IIV4) vaccine, age 65+ yr, high dose, quadrivalent, PF (FLUZONE HIGH-DOSE) Immunization Colin Work Phone: 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 02-05-2022 pneumococcal Conjuga te, unspecified formulation Emilee Condon MD Work Phone: [facility] Work Phone: 02-05-2022 pneumococcal (PCV20) vaccine, 20 valent (PREVNAR 20) Faye Preciado PT [facility] 01-31-2022 influenza, high-dose , quadrivalent vaccine (FLUZONE HIGH DOSE QUADRIVALENT) Mi Nurse Work Phone: [facility] Work Phone: 01-31-2022 influenza virus vaccine, unspecified formulation Jovany Bahena DO Work Phone: [facility] 08-01-2021 COVID-19 vaccine, fu ll dose (MODERNA) Erika Pinedo RACE CAR DRIVER.WEIGHT TRAINING INSTRUCTOR Work Phone: [facility] 02-23-2021 COVID-19 vaccine, booster dose (MODERNA) Emilee Condon MD Work Phone: [facility] Work Phone: 02-11-2021 influenza, high-dose , quadrivalent vaccine (FLUZONE HIGH DOSE QUADRIVALENT) Emilee Condon MD Work Phone: [facility] 07-21-2020 COVID-19 vaccine, fu ll dose (MODERNA) Emilee Condon MD Work Phone: [facility] 06-23-2020 COVID-19 vaccine, fu ll dose (MODERNA) Emilee Condon MD Work Phone: [facility] 04-18-2020 zoster vaccine recombinant Emilee Condon MD Work Phone: [facility] 02-07-2020 zoster vaccine recombinant Emilee Condon MD Work Phone: [facility] 01-23-2020 influenza, high-dose , quadrivalent vaccine (FLUZONE HIGH DOSE QUADRIVALENT) Emilee Condon MD Work Phone: [facility] 01-23-2020 pneumococcal polysaccharide vaccine, 23 valent Emilee Condon MD Work Phone: [facility] 01-27-2019 influenza, injectabl e, quadrivalent, contains preservative Emilee Condon MD Work Phone: [facility] 12-20-2017 influenza, injectabl e, quadrivalent, contains preservative Emilee Condon MD Work Phone: [facility] 02-23-2017 influenza, injectabl e, quadrivalent, contains preservative Emilee Condon MD Work Phone: [facility] Work Phone: 02-11-2016 influenza, injectabl e, quadrivalent, contains preservative Emilee Condon MD Work Phone: [facility] 01-07-2015 influenza, injectabl e, quadrivalent, contains preservative Emilee Condon MD Work Phone: [facility] 01-07-2015 influenza, seasonal, injectable Emilee Condon MD Work Phone: [facility] 08-25-2014 zoster vaccine, live Emilee espinal MD Work Phone: [facility] 04-26-2014 influenza, seasonal, injectable Emilee Condon MD Work Phone: [facility] 03-06-2012 influenza virus vaccine, unspecified formulation Emilee Condon MD Work Phone: [facility] 06-28-2011 tetanus toxoid, redu devan diphtheria toxoid, and acellular pertussis vaccine, adsorbed Emilee Condon MD Work Phone: [facility] 01-27-2011 influenza virus vaccine, unspecified formulation Emilee Condon MD Work Phone: [facility] 05-30-2009 novel [id number], preservative-free, injectable Emilee Condon MD Work Phone: [facility] 02-27-2008 influenza virus vaccine, unspecified formulation Emilee Condon MD Work Phone: [facility] Work Phone: Payers Date Payer Category Payer Self-pay [id number] 2020 Private Health Insurance MMO MED ICARE SUPPLEMENT [id number] 2020 Unknown MMO MMO MEDICARE SUPPLEMENT [id number] 2020-Present [phone] [address] [place], [place] [address] Indemnity [id number] 2020 Unknown MMO MMO MEDICARE SUPPLEMENT [id number] 2020-Present [phone] [address] [place], [place] [address] Indemnity [id number] 2019 Medicare MEDICARE MEDICAR E A AND B [id number] 2019-Present [phone] [facility] [place] [address] Medicare [id number] 2019 Medicare [id number] 2019 Medicare [id number] 2014 Unknown [id number] Unknown [id number] Unknown [id number] Unknown [id number] Unknown [id number] Unknown [id number] Unknown [id number] Unknown [id number] Unknown [id number] Unknown [id number] Unknown [id number] Unknown [id number] Social History Date Type Detail Facility Start: 10-20-2010 End: 02-05-2022 Tobacco smoking status NHIS Never smoked tobacco [facility] Start: 05-29-2021 End: 08-14-2024 Alcohol intake Current drinker of alcohol (finding) [facility] Start: 05-29-2021 End: 08-22-[address] [facility] Start: 02-17-2020 End: 08-06-2022 History SDOH Alcohol Frequency 5 [facility] Start: 02-17-2020 End: 08-06-2022 History SDOH Alcohol Std Drinks 2 [facility] Start: 02-17-2020 End: 08-06-2022 History SDOH Alcohol Binge 3 [facility] Start: 01-22-2020 End: 08-06-2022 History SDOH Social Connections Membership 1 [facility] Start: 01-22-2020 History SDOH Physica l Activity MPS 6 [facility] Start: 02-17-2020 History SDOH Financial 4 [facility] Start: 01-21-[address] [facility] Start: 1955 Sex Assigned At Not on file C [facility] Start: 08-18-2021 End: 08-28-2021 Exposure to SARS-CoV-2 (event) Yes [facility] Start: 11-14-2020 End: 03-02-2022 Exposure to SARS-CoV-2 (event) Not sure [facility] Start: 10-20-2010 End: 02-05-2022 Tobacco use and exposure Smokeless tobacco non-user [facility] Work Phone: Start: 05-14-2022 End: 07-02-2022 Tobacco smoking status NHIS Unknown if ever smoked [facility] Start: 1955 Sex Assigned At Female W [facility] Start: 08-06-2022 End: 08-22-2022 Social connection and isolation panel [facility] Are you now , , , , never or living with a partner? [facility] How often to you hav e a drink containing alcohol? 4 or more times a week [facility] How many standard dr inks containing alcohol do you have on a typical day? [address] [facility] How often do you hav e 6 or more drinks on 1 occasion? Less than monthly [facility] How hard is it for y ou to pay for the very basics like food, housing, medical care, and heating Not hard at all [facility] Do you feel stress - tense, restless, nervous, or anxious, or unable to sleep at night because your mind is troubled all the time - these days [OSQ] To some extent [facility] (I/We) worried whealanis er (my/our) food would run out before (I/we) got money to buy more. Never true [facility] In the past 12 month s, was there a time when you were not able to pay the mortgage or rent on time? No [facility] How often do you hav e 6 or more drinks on 1 occasion? Monthly [facility] Work Phone: How hard is it for y ou to pay for the very basics like food, housing, medical care, and heating Not very hard [facility] Work Phone: Do you feel stress - tense, restless, nervous, or anxious, or unable to sleep at night because your mind is troubled all the time - these days [OSQ] Only a little [facility] Functional Status Date Assessment Result Facility 08-25-2014 Are you deaf, or do you have serious difficulty hearing No 08/25/2014 9:05 AM Jacinda Emmanuel LPN No [facility] 08-25-2014 Are you blind, or do you have serious difficulty seeing, even when wearing glasses No 08/25/2014 9:05 AM Jacinda Emmanuel LPN No [facility] 08-25-2014 Do you have serious difficulty walking or climbing stairs No 08/25/2014 9:05 AM Jacinda Emmanuel LPN No [facility] 08-25-2014 Do you have difficul ty dressing or bathing No 08/25/2014 9:05 AM Jacinda Emmanuel LPN No [facility] 08-25-2014 Because of a physica l, mental, or emotional condition, do you have difficulty doing errands alone such as visiting a physician's office or shopping No 08/25/2014 9:05 AM Jacinda Emmanuel LPN No [facility] Mental Status Date Assessment Result Facility 06-16-2022 Cognitive function Level Of Cons ciousness Awake [facility] Work Phone: 05-14-2022 Cognitive function Voice/Name [facility] Work Phone: 08-25-2014 Because of a physica l, mental, or emotional condition, do you have serious difficulty concentrating, remembering, or making decisions No 08/25/2014 9:05 AM EDT Jacinda Wilks LPN No [facility] Clinical Notes 11-23-2006 to 10-07-2024 Addendum Note - Jeana Mo MA - 10/07/2024 11:09 AM EDTAddendum Note - Jeana Mo MA - 10/07/2024 11:09 AM EDTPatient Emilee Barreto MD - 08/25/2024 2:48 PM EDT Note Date & Type Note Facility 10-07-2024 Note Addended by: JEANA BUTLER on: 10/07/2024 11:09 AM Modules accepted: Orders [facility] 10-07-2024 Miscellaneous Notes Addended by: JEANA MO on: 10/07/2024 11:09 AM Modules accepted: Orders Processed as med update for placement on med list. Jeana Mo MA documented in this encounter [facility] 10-07-2024 Telephone encounter Note Processed as med update for placement on med list. Jeana Mo MA [facility] 09-28-[address] - 09/28/2024 1:56 PM EDT Start regular exercise, aim for 30 min most days (exercise bike) Start tracking with tameka Cronometer aiming for 1500 calories, OK to track 3-4 x per weei If having cheese and crackers, balance out the meal with fruit, vegetables Continue three meals, limited snacking Increase vegetables documented in this encounter [facility] 09-28-2024 Note [facility] 09-28-2024 History of Present illness Narrative 1:39 PM Nutritional Therapy Re-Assessment Nutrition Diagnosis: Overweight/obesity, related to, excess energy intake and physical inactivity, as evidenced by BMI above normative standard for age and gender RECOMMENDED MALNUTRITION DIAGNOSIS: NO MALNUTRITION IDENTIFIED NUTRITION CARE PLAN: Nutrition Intervention 09/28/2024: modify type and amount of food or beverage Start regular exercise, aim for 30 min most days (exercise bike) Start tracking with tameka Cronometer aiming for 1500 calories, OK to track 3-4 x per weei If having cheese and crackers, balance out the meal with fruit, vegetables Continue three meals, limited snacking Increase vegetables Nutrition Monitoring & Evaluation: half to one pound weight loss per week Need for Follow up: 4-6 weeks PROGRESS: Interval History: following for weight loss with class 3 obesity Body mass index is 46.02 kg/m . 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 Weight has increased 5 lbs since last visit. Ready to restart. Intake limited change from last visit. Dinner likely source of excess energy along with limited energy expenditure. Nutrition Intervention 07/20/24 Add in regular exercise pool, recumbent bike, or seated exercise - goal Follow the Plate Method at lunch and dinner: Use a 9 plate - 1/2 plate vegetables-non starchy such as green beans, greens, broccoli, cauliflower, etc (1 serving of fruit optional outside of plate) - 1/4 plate lean protein-primarily chicken, turkey fish, lean red 1-2 x per week at most (size of palm) - 1/4 plate whole grain or starchy vegetable such as corn, peas, potatoes, beans (size of fist, 1 cup) Change to old fashioned or steel cut oats; use Fairlife milk, Protein drink, ground Flax seed; All meals and snacks at the dinner table; minimize distractions, no TV while eating. Make meals last at least 20 min, chew each bite of food 20 x per bite.Portion out all foods, never eat out of container. Become more mindful of meal: Enjoy flavors, textures etc. Use hunger/fullness scale. Consider tracking intake with tameka such as Cronometer or Product [email or web address][employer][email or web address] aiming for 1500 calories; OK to track 2-3 x per week. Add in regular exercise pool, recumbent bike, or seated exercise - goal Follow the Plate Method at lunch and dinner: Use a 9 plate - 1/2 plate vegetables-non starchy such as green beans, greens, broccoli, cauliflower, etc (1 serving of fruit optional outside of plate) - 1/4 plate lean protein-primarily chicken, turkey fish, lean red 1-2 x per week at most (size of palm) - 1/4 plate whole grain or starchy vegetable such as corn, peas, potatoes, beans (size of fist, 1 cup) Change to old fashioned or steel cut oats; use Fairlife milk, Protein drink, ground Flax seed; All meals and snacks at the dinner table; minimize distractions, no TV while eating. Make meals last at least 20 min, chew each bite of food 20 x per bite.Portion out all foods, never eat out of container. Become more mindful of meal: Enjoy flavors, textures etc. Use hunger/fullness scale. Consider tracking intake with tameka such as Cronometer or Product Huntdiary aiming for 1500 calories; OK to track 2-3 x per week. 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 Resting Metabolic Rate: 1745 Malnutrition Screening Significant unintentional weight loss? No Eating less than 75% of usual intake for more than 2 weeks? No Potential Signs of Inflammation: no identifiable sources Nutritional status: Food Insecurity: No Food Insecurity (09/28/2024) Hunger Vital Sign Worried About Running Out of Food in the Last Year: Never true Ran Out of Food in the Last Year: Never true Education Materials Provided: None this visit READINESS TO LEARN Cognitive ability: Alert and oriented Motivation to learn: Interested Family support: Unable to assess - Family not present Instruction provided to: Patient Patient learns best by: Individual Instruction Factors affecting learning: None Physical limitations affecting learning: None Likelihood of Adherence: Moderate Referred/Supervised by: Kristin YODER Billing Type: Re-assess 2 units 2:04 PM Total Time (mins): 25 SIGNATURE: Aspen Ceballos RD PATIENT NAME: Priscilla Ramos DATE: September 28, 2024 TIME: 1:42 PM documented in this encounter [facility] 09-27-2024 Miscellaneous Notes Patient notified of results, verbalized understanding of instructions given. Cyndee Vásquez MA Please inform patient that urine culture was negative. Follow-up with PCP if symptoms or not improving Jason Dumont APRN.CNP documented in this encounter [facility] 09-27-2024 Telephone encounter Note Patient notified of results, verbalized understanding of instructions given. Cyndee Vásquez MA [facility] 09-27-2024 Telephone encounter Note Please inform patient that urine culture was negative. Follow-up with PCP if symptoms or not improving Jason Dumont APRN.WEIGHT TRAINING INSTRUCTOR [facility] Work Phone: 09-25-2024 Note [facility] 09-25-2024 History of Present illness Narrative Images from the original note were not included. [facility] Subjective Priscilla Ramos is a 69 year old female. Patient presents with: Urinary Problem: Burning and urgency x 3 days Patient came in with complaints of burning and urgency. Symptoms have been consistent for the lat 3 days. Patient states that she has had 3 UTIs in the last year. Patient states these symptoms feel different than previous UTIs. States burning pain occurs during and after urination. Patient concerned about a cut or scratch in the vagina. Denies history of STD. Patient states she is not sexually active but did masturbate with a measuring spoon inside of a plastic ziplock bag. Denies fever,chills, nausea, vomiting, abdominal, pelvic, and back pain. The history is provided by the patient. No specialized language instructor was used. Review of Systems Constitutional: Negative. Gastrointestinal: Negative for abdominal pain and vomiting. Genitourinary: Positive for difficulty urinating, dysuria and urgency. Negative for decreased urine volume, flank pain, pelvic pain and vaginal discharge. Musculoskeletal: Negative for back pain. Neurological: Negative for headaches. PAST MEDICAL HISTORY Diagnosis Date Abnormal mammogram, unspecified 06/27/2006 Acquired hypothyroidism 07/04/2017 CAD (coronary artery disease) CAD (coronary artery disease) 07/25/2022 Calculus of gallbladder with chronic cholecystitis without obstruction 08/01/2015 Corns and callosities 01/24/2014 Diarrhea Dysphagia 05/27/2015 feeling like food sits in bottom of esophagus if eats heavier than usual meal Dysthymic disorder Depression (non-psychotic) Elevated antinuclear antibody (KELTON) level 08/25/2014 Essential hypertension HTN (hypertension) 07/25/2022 Internal hemorrhoids without mention of complication Left wrist sprain 07/2022 Myalgia and myositis, unspecified FIBROMYALGIA Obesity, unspecified Obesity Obstructive sleep apnea [facility] Osteoarthritis of multiple joints PAIN LEG (Right) 02/20/2005 Temporomandibular joint disorders, unspecified 11/23/2006 PAST SURGICAL HISTORY Procedure Laterality Date ARTHRP KNE CONDYLE&PLATU MEDIAL&LAT COMPARTMENTS 09/2011 right DELIVERY ONLY , low cervical DELIVERY ONLY , low cervical COLONOSCOPY 08/01/2022 repeat in 5 years COLONOSCOPY FLX DX W/COLLJ SPEC WHEN PFRMD 07/29/2017 Colonoscopy COLONOSCOPY W/BIOPSY SINGLE/MULTIPLE 02/10/2007 LAPS SURG CHOLECYSTECTOMY W/CHOLANGIOGRAPHY 08/17/2015 LEFT HEART CATH,PERCUTANEOUS PAST SURGICAL HISTORY OF foot-left PAST SURGICAL HISTORY OF left foot - no hardware STEREOTACTIC CORE BIOPSY 07/04/2006 UOQ RIGHT AVANI W/WO REMOVAL TUBE OVARY 2000 Hysterectomy, AVANI ovaries remain ALLERGIES Patient has no known allergies. MEDICATIONS sulfaSALAzine (AZULFIDINE) 500 mg tablet Take 500mg every morning & 1000mg every evening benzonatate (TESSALON PERLE) 100 mg capsule Take 1 capsule by mouth three times a day as needed. gabapentin (NEURONTIN) 400 mg capsule Take 2 capsule 60-90 minutes before bedtime. acetaminophen (TYLENOL ARTHRITIS PAIN) 650 mg CR tablet Take 1,300 mg by mouth once daily. levothyroxine (SYNTHROID) 25 mcg tablet Take 1 tablet by mouth once daily. rosuvastatin (CRESTOR) 5 mg tablet Take 1 tablet by mouth every Saturday, Saturday, and Saturday. hydroCHLOROthiazide 25 mg tablet Take 1 tablet by mouth every afternoon. colestipol (COLESTID) 1 gram tablet Take 1-2 tablets by mouth once daily. As directed diclofenac (VOLTAREN ARTHRITIS PAIN) 1 % topical gel Apply 2 g to affected area four times daily as needed (wrist pain). BIPAP losartan (COZAAR) 100 mg tablet Take 100 mg by mouth once daily. aspirin 81 mg chewable tablet Take 81 mg by mouth once daily. ubidecarenone Q-10 (COENZYME Q-10) 10 mg cap Take 100 mg by mouth two times a day. hyperimmune colostrum, bovine 200 mg tab Take 2 tablets by mouth twice daily. Ca/D3/mag ox/zinc/commercial helicopter pilot/jose/bor (CALCIUM 600-D3 PLUS, MAG-ZINC, ORAL) turmeric/turmeric ext/pepr ext (TURMERIC-TURMERIC EXT-PEPPER) 900-100-5 mg cap CPAP Bipap 17/13 cm H2O, Heat Humidity, suitable mask, [employer] supplies, opt Chinstrap, G47.33. cholecalciferol (VITAMIN D3) 2,000 unit tablet Take 2,000 Units by mouth once daily. FLUoxetine HCl (PROZAC) 40 mg capsule Take 1 capsule by mouth once daily. (Dr. Garcia) CYANOCOBALAMIN, VITAMIN B-12, (VITAMIN B-12 ORAL) Take by mouth. buPROPion XL (WELLBUTRIN XL) 150 mg 24 hr tablet Take one(1) tablet daily. Biotin (NAIL-EX) 2,500 mcg ORAL Tab Take 1,000 mcg by mouth once daily. DAILY VITAMIN TAB Take one(1) tablet daily. FAMILY HISTORY Problem Relation Age of Onset Diabetes Mother late in life at 75 Stroke Mother x3 Cancer Father myeloma (from immunesuppressants) at age 80 of chf and perf. bowel other (ESRD) Father had sudden renal failure; had kidney transplant at 68yo Thyroid Brother Hypertension Son No Known Problems Son Anesthesia Problems No Family History Blood Clots No Family History Clotting Disorder No Family History Social History Tobacco Use Smoking status: Never Smokeless tobacco: Never Vaping Use Vaping status: Never Used Substance Use Topics Alcohol use: Yes Alcohol/week: 18.0 standard drinks of alcohol Types: 18 Glasses of wine per week Comment: wine with supper Drug use: No Objective BP 142/82 Pulse 83 Temp 36.3 C (97.3 F) Resp 20 Wt 123 kg (271 lb 2.7 oz) SpO2 94% BMI 46.01 kg/m Physical Exam Exam conducted with a bus driver present. Constitutional: Appearance: Normal appearance. HENT: Head: Normocephalic. Cardiovascular: Rate and Rhythm: Normal rate and regular rhythm. Heart sounds: Normal heart sounds. Pulmonary: Effort: Pulmonary effort is normal. Breath sounds: Normal breath sounds. Abdominal: General: Abdomen is flat. There is no distension. Palpations: Abdomen is soft. Tenderness: There is no abdominal tenderness. There is no right CVA tenderness or left CVA tenderness. Genitourinary: Comments: Green- Small, painful lesions on vagina where marked above Redness noted in the red areas marked above Skin: General: Skin is warm and dry. Neurological: Mental Status: She is alert and oriented to person, place, and time. {ASSESSMENT/PLAN: 1. Burning with urination - ICD9: 788.1, ICD10: R30.0 (primary diagnosis) acute - UA negative for UTI - Send urine for culture - Will update patient with culture results - Patient education for prevention given - Patient educated about inserting objects into vagina - Patient will begin nystatin, educated about application outside vagina - Patient agreeable to care plan with no questions at this time - Will follow up if symptoms persist or worsen - UA DIP, URINE (POC) - BACTERIAL CULTURE, URINE 2. Vaginal discomfort - ICD9: 625.9, ICD10: N94.9 - NYSTATIN 100,000 UNIT/GRAM TOPICAL CREAM Jorge A Choi Roastmaster present. The sensitive examination was discussed with the Patient or Patient's Authorized Group Underwriter. As applicable, any other physician, advance practice provider, medical student, or other health professional student that will be observing or involved in the sensitive examination for educational or training purposes was discussed with the Patient or Authorized Group Underwriter. The Patient or Authorized Group Underwriter has agreed to proceed with the sensitive examination. History and Record Review External record(s) reviewed: no prior records. TEACHING PROVIDER (Physician/PA/RACE CAR DRIVER) NOTE OF PERSONAL INVOLVEMENT IN CARE: I have personally seen and examined the patient and performed the medical decision-making components. I have reviewed the Advanced Practice Registered Nurse (RACE CAR DRIVER) Student's documentation and verified the findings in the note as written. Any additions or changes are noted in bold/italics. Signature: Vibha Marin Date: 09/25/2024 Time: 1:19 PM ] Procedures documented in this encounter [facility] 09-25-2024 History of Present illness Narrative Radiology Service Progress Note PATIENT NAME: Priscilla Ramos DATE OF SERVICE: September 25, 2024 TIME: 10:55 AM PATIENT IDENTITY VERIFICATION COMPLETED USING TWO (2) IDENTIFIERS: Name and Date of confirmed by patient verbally. FALL SCREENING: Has the patient had 2 falls in the last year or 1 fall with injury or currently using an Ambulatory Assistive Device (Walker, Cane, Wheelchair, Crutches, etc.)? Yes, Patient High Risk for Falls What interventions were put in place to prevent falls during this visit? Increased Observations by Caregivers PATIENT GENDER DATA: Assigned female at . status: : No status: NO. PATIENT RELEVANT IMPLANT DATA REVIEWED: Yes PATIENT PRESENTS WITH AN IMPLANTABLE OR ATTACHED COMPENSATION AND BENEFITS ADMINISTRATOR: No RADIOLOGY DEPARTMENT: General X-ray: Exam(s) Completed: Chest X-Ray PERIPHERAL IV DATA: Not applicable SIGNED BY: RT Manisha(R) September 25, 2024 10:55 AM documented in this encounter [facility] 09-25-2024 Note [facility] 09-22-2024 Telephone encounter Note The following approved medication requests have been transmitted electronically. Requested Prescriptions Signed Prescriptions Disp Refills sulfaSALAzine (AZULFIDINE) 500 mg tablet 270 tablet 0 Sig: Take 500mg every morning & 1000mg every evening Authorizing Provider: PRINCE WEST APRN.CNP [facility] 09-22-2024 Miscellaneous Notes The following approved medication requests have been transmitted electronically. Requested Prescriptions Signed Prescriptions Disp Refills sulfaSALAzine (AZULFIDINE) 500 mg tablet 270 tablet 0 Sig: Take 500mg every morning & 1000mg every evening Authorizing Provider: PRINCE WEST APRN.CNP Patient has been identified by name and date of : Yes RX INSTRUCTIONS: Patient aware RX will be sent to pharmacy. No need to notify patient. LAST APPOINTMENT: 07/07/2024 UPCOMING APPOINTMENT: 12/07/2024 LABS: Hemoglobin (g/dL) Date Value 09/03/2024 14.0 12/14/2020 14.7 Hematocrit (%) Date Value 09/03/2024 41.6 12/14/2020 45.4 WBC (k/uL) Date Value 09/03/2024 6.93 12/14/2020 5.92 Platelet Count (k/uL) Date Value 09/03/2024 346 12/14/2020 298 AST Date Value Ref Range Status 09/03/2024 24 13 - 35 U/L Final ALT Date Value Ref Range Status 09/03/2024 22 7 - 38 U/L Final Creatinine Date Value Ref Range Status 09/03/2024 0.70 0.58 - 0.96 mg/dL Final No results found for: URICACID Eun Gould MA documented in this encounter [facility] 09-22-2024 Telephone encounter Note Patient has been identified by name and date of : Yes RX INSTRUCTIONS: Patient aware RX will be sent to pharmacy. No need to notify patient. LAST APPOINTMENT: 07/07/2024 UPCOMING APPOINTMENT: 12/07/2024 LABS: Hemoglobin (g/dL) Date Value 09/03/2024 14.0 12/14/2020 14.7 Hematocrit (%) Date Value 09/03/2024 41.6 12/14/2020 45.4 WBC (k/uL) Date Value 09/03/2024 6.93 12/14/2020 5.92 Platelet Count (k/uL) Date Value 09/03/2024 346 12/14/2020 298 AST Date Value Ref Range Status 09/03/2024 24 13 - 35 U/L Final ALT Date Value Ref Range Status 09/03/2024 22 7 - 38 U/L Final Creatinine Date Value Ref Range Status 09/03/2024 0.70 0.58 - 0.96 mg/dL Final No results found for: URICACID Enu Gould MA [facility] 08-25-2024 Note [facility] 08-25-2024 History of Present illness Narrative This note was created using [employer]. Subjective Priscilla Ramos is a 69 year old female. Patient presents with: Follow Up For: visit 08/21/24; Fullness in the RIGHT hilum Priscilla is a 69-year-old female presenting for follow-up after an urgent care visit for acute respiratory infection. Priscilla reports improvement in symptoms since her urgent care visit on 08/21, but is not yet at 100%. She was prescribed a 5-day course of Levaquin, which she is completing today. She reports a significant reduction in cough and rhinorrhea, though she still experiences occasional cough and mild rhinorrhea. She notes persistent nasal congestion, for which she has used Flonase a couple of nights before bed to facilitate the use of her BiPAP machine. She has not tried other treatments for congestion. She denies fevers, chills, or persistent sinus pain or pressure, but reports feeling very fatigued. She mentions that her cough was previously severe enough to cause rib pain, but this has improved. She denies current wheezing, but notes that she has not been very active. She also reports a recent UTI for which she was taking amoxicillin prior to her urgent care visit. PAST MEDICAL HISTORY Diagnosis Date Abnormal mammogram, unspecified 06/27/2006 Acquired hypothyroidism 07/04/2017 CAD (coronary artery disease) CAD (coronary artery disease) 07/25/2022 Calculus of gallbladder with chronic cholecystitis without obstruction 08/01/2015 Corns and callosities 01/24/2014 Diarrhea Dysphagia 05/27/2015 feeling like food sits in bottom of esophagus if eats heavier than usual meal Dysthymic disorder Depression (non-psychotic) Elevated antinuclear antibody (KELTON) level 08/25/2014 Essential hypertension HTN (hypertension) 07/25/2022 Internal hemorrhoids without mention of complication Left wrist sprain 07/2022 Myalgia and myositis, unspecified FIBROMYALGIA Obesity, unspecified Obesity Obstructive sleep apnea [facility] Osteoarthritis of multiple joints PAIN LEG (Right) 02/20/2005 Temporomandibular joint disorders, unspecified 11/23/2006 Current Outpatient Medications Medication Sig sulfaSALAzine (AZULFIDINE) 500 mg tablet Take 500mg every morning & 1000mg every evening gabapentin (NEURONTIN) 400 mg capsule Take 2 capsule 60-90 minutes before bedtime. acetaminophen (TYLENOL ARTHRITIS PAIN) 650 mg CR tablet Take 1,300 mg by mouth once daily. levothyroxine (SYNTHROID) 25 mcg tablet Take 1 tablet by mouth once daily. rosuvastatin (CRESTOR) 5 mg tablet Take 1 tablet by mouth every Saturday, Saturday, and Saturday. hydroCHLOROthiazide 25 mg tablet Take 1 tablet by mouth every afternoon. acetaminophen (TYLENOL EXTRA STRENGTH) 500 mg tablet Take 1,000 mg by mouth every 8 hours as needed for pain. diclofenac (VOLTAREN ARTHRITIS PAIN) 1 % topical gel Apply 2 g to affected area four times daily as needed (wrist pain). BIPAP losartan (COZAAR) 100 mg tablet Take 100 mg by mouth once daily. aspirin 81 mg chewable tablet Take 81 mg by mouth once daily. ubidecarenone Q-10 (COENZYME Q-10) 10 mg cap Take 100 mg by mouth two times a day. hyperimmune colostrum, bovine 200 mg tab Take 2 tablets by mouth twice daily. Ca/D3/mag ox/zinc/commercial helicopter pilot/jose/bor (CALCIUM 600-D3 PLUS, MAG-ZINC, ORAL) turmeric/turmeric ext/pepr ext (TURMERIC-TURMERIC EXT-PEPPER) 900-100-5 mg cap CPAP Bipap 17/13 cm H2O, Heat Humidity, suitable mask, [employer] supplies, opt Chinstrap, G47.33. cholecalciferol (VITAMIN D3) 2,000 unit tablet Take 2,000 Units by mouth once daily. FLUoxetine HCl (PROZAC) 40 mg capsule Take 1 capsule by mouth once daily. (Dr. Garcia) CYANOCOBALAMIN, VITAMIN B-12, (VITAMIN B-12 ORAL) Take by mouth. buPROPion XL (WELLBUTRIN XL) 150 mg 24 hr tablet Take one(1) tablet daily. Biotin (NAIL-EX) 2,500 mcg ORAL Tab Take 1,000 mcg by mouth once daily. DAILY VITAMIN TAB Take one(1) tablet daily. benzonatate (TESSALON PERLE) 100 mg capsule Take 1 capsule by mouth three times a day as needed. colestipol (COLESTID) 1 gram tablet Take 1-2 tablets by mouth once daily. As directed No current facility-administered medications for this visit. Review of Systems Objective BP 157/91 Pulse 101 Temp 36.6 C (97.9 F) (Right Tympanic) Resp 16 Wt 120.4 kg (265 lb 6.9 oz) SpO2 96% BMI 45.04 kg/m Physical Exam Constitutional: Appearance: Normal appearance. HENT: Head: Normocephalic. Eyes: Conjunctiva/sclera: Conjunctivae normal. Cardiovascular: Rate and Rhythm: Normal rate and regular rhythm. Heart sounds: Normal heart sounds. Comments: Trace pretibial pitting edema Pulmonary: Effort: Pulmonary effort is normal. Breath sounds: Normal breath sounds. No wheezing (No wheezing with forced expirations). Musculoskeletal: Right lower leg: Edema present. Left lower leg: Edema present. Skin: General: Skin is warm and dry. Neurological: General: No focal deficit present. Mental Status: She is alert and oriented to person, place, and time. Psychiatric: Mood and Affect: Mood normal. Behavior: Behavior normal. Thought Content: Thought content normal. Judgment: Judgment normal. IMPRESSION: Fullness in the RIGHT hilum. Although this could represent infiltrate close follow-up recommended to evaluate for complete resolution. If this does not resolve then CT chest would be recommended Equipment Washer: AMIE Transcribe Date/Time: Aug 21 2024 4:41P Dictated by : NICOLÁS VIVAS DO This examination was interpreted and the report reviewed and electronically signed by: NICOLÁS VIVAS DO on Aug 21 2024 4:43PM EST Results-Findings * * *Final Report* * * DATE OF EXAM: Aug 21 2024 4:37PM WOX [id number] - XR CHEST 2V FRONTAL/LAT / PROCEDURE REASON: Acute cough * * * * Physician Interpretation * * * * EXAMINATION: CHEST RADIOGRAPH (2 VIEW FRONTAL & LATERAL) CLINICAL HISTORY: Acute cough MQ: [id number] EXAM DATE/TIME: 08/21/2024 4:37 PM COMPARISON: 02/05/2022 RESULT: Lines, tubes, and devices: None. Lungs and pleura: There is fullness in the RIGHT hilum. This may represent infiltrate. However an underlying mass cannot be excluded. Short-term follow-up recommended to evaluate for resolution. Does not completely resolve then CT chest recommended Cardiomediastinal silhouette: Normal cardiomediastinal silhouette. Bones and soft tissues: Unremarkable. Assessment and Plan # Acute respiratory infection (J22) # Abnormal CXR (R93.89) - Symptoms improving; cough and rhinorrhea have decreased, though some nasal congestion persists. Lungs are clear on auscultation with no wheezing or crackles noted. - Completed 5-day course of Levaquin; last dose to be taken today. - Educated on the use of Flonase and nasal saline for congestion management. - Prescribed Tessalon Perles 100 mg capsules, to be taken three times daily as needed for residual cough. - Discussed the timeline for resolution of symptoms and the importance of allowing time for complete recovery. - Ordered follow-up chest X-ray to be performed one month from today to assess resolution of potential infiltrate noted on initial imaging. - Advised to monitor for any worsening symptoms, such as increased cough or fever, and to report back if these occur. Emilee Condon MD Recording using [employer] software for draft documentation of the visit was discussed with the patient/authorized insurance account representative; all questions welcomed and answered. Patient/authorized insurance account representative agreed to proceed documented in this encounter [facility] 08-22-2024 Telephone encounter Note Patient given results and verbalized understanding of instructions given. Celina Camacho LPN [facility] 08-22-2024 Miscellaneous Notes Patient given results and verbalized understanding of instructions given. Celina Camacho LPN Negative COVID flu RSV documented in this encounter [facility] 08-22-2024 Telephone encounter Note Negative COVID flu RSV [facility] Work Phone: 08-21-2024 Note SARS-COV-2 (AGENT OF COVID-19) RNA: Not detected INFLUENZA A RNA: Not detected INFLUENZA B RNA: Not detected RESPIRATORY SYNCYTIAL VIRUS (RSV) RNA: Not detected [facility] Comment on above: Performed By: #### [id number] ####[facility] LABCLIA [id number] [address] STATES OF [facility] 08-21-2024 History of Present illness Narrative Radiology Service Progress Note PATIENT NAME: Priscilla Ramos DATE OF SERVICE: August 21, 2024 TIME: 4:31 PM PATIENT IDENTITY VERIFICATION COMPLETED USING TWO (2) IDENTIFIERS: Name and Date of confirmed by patient verbally. FALL SCREENING: Has the patient had 2 falls in the last year or 1 fall with injury or currently using an Ambulatory Assistive Device (Walker, Cane, Wheelchair, Crutches, etc.)? No PATIENT GENDER DATA: Assigned female at . status: : No status: NO. PATIENT RELEVANT IMPLANT DATA REVIEWED: Not Applicable PATIENT PRESENTS WITH AN IMPLANTABLE OR ATTACHED COMPENSATION AND BENEFITS ADMINISTRATOR: No RADIOLOGY DEPARTMENT: General X-ray: Exam(s) Completed: Chest X-Ray PERIPHERAL IV DATA: Not applicable SIGNED BY: RT Glendy(R) August 21, 2024 4:31 PM documented in this encounter [facility] 08-21-2024 Note [facility] 08-21-2024 Note [facility] 08-21-2024 History of Present illness Narrative [facility] Subjective Priscilla Ramos is a 69 year old female. Patient presents with: Cough: Chest congestion, sinus pressure and pain, fatigue, drainage, SOB, x 4 days 69 year old female with PMH fibromyalgia, CAD, HTN, thyroid, sleep apnea and depression presents for illness Acute onset 4 to 5 days ago + chest congestion +cough Non productive +sinus pressure +fatigue +runny nose Feeling winded and SOB Denies abdominal pain Denies hemoptysis Denies CP Denies N/V Denies tobacco usage Of note, she is currently on Amoxil for a UTI The history is provided by the patient. No specialized language instructor was used. Cough This is a new problem. The current episode started more than 2 days ago. The problem occurs constantly. The problem has been gradually worsening. The cough is Non-productive. There has been no fever. Associated symptoms include chills, rhinorrhea and shortness of breath. Pertinent negatives include no chest pain, no sweats, no weight loss, no ear congestion, no ear pain, no headaches, no sore throat, no myalgias, no wheezing and no eye redness. She has tried nothing for the symptoms. The treatment provided no relief. She is not a smoker. Her past medical history does not include bronchitis, pneumonia, bronchiectasis, COPD, emphysema or asthma. PAST MEDICAL HISTORY Diagnosis Date Abnormal mammogram, unspecified 06/27/2006 Acquired hypothyroidism 07/04/2017 CAD (coronary artery disease) CAD (coronary artery disease) 07/25/2022 Calculus of gallbladder with chronic cholecystitis without obstruction 08/01/2015 Corns and callosities 01/24/2014 Diarrhea Dysphagia 05/27/2015 feeling like food sits in bottom of esophagus if eats heavier than usual meal Dysthymic disorder Depression (non-psychotic) Elevated antinuclear antibody (KELTON) level 08/25/2014 Essential hypertension HTN (hypertension) 07/25/2022 Internal hemorrhoids without mention of complication Left wrist sprain 07/2022 Myalgia and myositis, unspecified FIBROMYALGIA Obesity, unspecified Obesity Obstructive sleep apnea [facility] Osteoarthritis of multiple joints PAIN LEG (Right) 02/20/2005 Temporomandibular joint disorders, unspecified 11/23/2006 PAST SURGICAL HISTORY Procedure Laterality Date ARTHRP KNE CONDYLE&PLATU MEDIAL&LAT COMPARTMENTS 09/2011 right DELIVERY ONLY , low cervical DELIVERY ONLY , low cervical COLONOSCOPY 08/01/2022 repeat in 5 years COLONOSCOPY FLX DX W/COLLJ SPEC WHEN PFRMD 07/29/2017 Colonoscopy COLONOSCOPY W/BIOPSY SINGLE/MULTIPLE 02/10/2007 LAPS SURG CHOLECYSTECTOMY W/CHOLANGIOGRAPHY 08/17/2015 LEFT HEART CATH,PERCUTANEOUS PAST SURGICAL HISTORY OF foot-left PAST SURGICAL HISTORY OF left foot - no hardware STEREOTACTIC CORE BIOPSY 07/04/2006 UOQ RIGHT AVANI W/WO REMOVAL TUBE OVARY 1999 Hysterectomy, AVANI ovaries remain ALLERGIES Patient has no known allergies. MEDICATIONS sulfaSALAzine (AZULFIDINE) 500 mg tablet Take 500mg every morning & 1000mg every evening amoxicillin (AMOXIL) 500 mg capsule Take 1 capsule by mouth two times a day for 7 days. clotrimazole-betamethasone (LOTRISONE) cream Apply to affected area two times a day for 7 days. gabapentin (NEURONTIN) 400 mg capsule Take 2 capsule 60-90 minutes before bedtime. acetaminophen (TYLENOL ARTHRITIS PAIN) 650 mg CR tablet Take 1,300 mg by mouth once daily. levothyroxine (SYNTHROID) 25 mcg tablet Take 1 tablet by mouth once daily. rosuvastatin (CRESTOR) 5 mg tablet Take 1 tablet by mouth every Saturday, Saturday, and Saturday. hydroCHLOROthiazide 25 mg tablet Take 1 tablet by mouth every afternoon. acetaminophen (TYLENOL EXTRA STRENGTH) 500 mg tablet Take 1,000 mg by mouth every 8 hours as needed for pain. colestipol (COLESTID) 1 gram tablet Take 1-2 tablets by mouth once daily. As directed diclofenac (VOLTAREN ARTHRITIS PAIN) 1 % topical gel Apply 2 g to affected area four times daily as needed (wrist pain). BIPAP losartan (COZAAR) 100 mg tablet Take 100 mg by mouth once daily. aspirin 81 mg chewable tablet Take 81 mg by mouth once daily. ubidecarenone Q-10 (COENZYME Q-10) 10 mg cap Take 100 mg by mouth two times a day. hyperimmune colostrum, bovine 200 mg tab Take 2 tablets by mouth twice daily. Ca/D3/mag ox/zinc/commercial helicopter pilot/jose/bor (CALCIUM 600-D3 PLUS, MAG-ZINC, ORAL) turmeric/turmeric ext/pepr ext (TURMERIC-TURMERIC EXT-PEPPER) 900-100-5 mg cap CPAP Bipap 17/13 cm H2O, Heat Humidity, suitable mask, [employer] supplies, opt [place], G47.33. cholecalciferol (VITAMIN D3) 2,000 unit tablet Take 2,000 Units by mouth once daily. FLUoxetine HCl (PROZAC) 40 mg capsule Take 1 capsule by mouth once daily. (Dr. Garcia) CYANOCOBALAMIN, VITAMIN B-12, (VITAMIN B-12 ORAL) Take by mouth. buPROPion XL (WELLBUTRIN XL) 150 mg 24 hr tablet Take one(1) tablet daily. Biotin (NAIL-EX) 2,500 mcg ORAL Tab Take 1,000 mcg by mouth once daily. DAILY VITAMIN TAB Take one(1) tablet daily. levoFLOXacin (LEVAQUIN) 750 mg tablet Take 1 tablet by mouth once daily for 5 days. nitrofurantoin monohydrate and macrocrystal (MACROBID) 100 mg capsule Take 1 capsule by mouth two times a day for 7 days. (Patient not taking: Reported on 08/21/2024) FAMILY HISTORY Problem Relation Age of Onset Diabetes Mother late in life at 75 Stroke Mother x3 Cancer Father myeloma (from immunesuppressants) at age 80 of chf and perf. bowel other (ESRD) Father had sudden renal failure; had kidney transplant at 68yo Thyroid Brother Hypertension Son No Known Problems Son Anesthesia Problems No Family History Blood Clots No Family History Clotting Disorder No Family History Social History Tobacco Use Smoking status: Never Smokeless tobacco: Never Vaping Use Vaping status: Never Used Substance Use Topics Alcohol use: Yes Alcohol/week: 18.0 standard drinks of alcohol Types: 18 Glasses of wine per week Comment: wine with supper Drug use: No Review of Systems Constitutional: Positive for chills. Negative for weight loss. HENT: Positive for rhinorrhea. Negative for ear pain and sore throat. Eyes: Negative for redness. Respiratory: Positive for cough and shortness of breath. Negative for wheezing. Cardiovascular: Negative for chest pain. Musculoskeletal: Negative for myalgias. Neurological: Negative for headaches. Objective BP 147/86 Pulse 93 Temp 36.1 C (97 F) Resp 22 Wt 122 kg (268 lb 15.4 oz) SpO2 96% BMI 45.64 kg/m Physical Exam Vitals and nursing note reviewed. Constitutional: General: She is not in acute distress. Appearance: Normal appearance. She is normal weight. She is not ill-appearing, toxic-appearing or diaphoretic. HENT: Head: Normocephalic and atraumatic. Right Ear: Ear canal and external ear normal. Left Ear: Ear canal and external ear normal. Nose: Rhinorrhea present. No congestion. Mouth/Throat: Mouth: Mucous membranes are moist. Pharynx: Posterior oropharyngeal erythema present. No oropharyngeal exudate. Eyes: General: Right eye: No discharge. Left eye: No discharge. Extraocular Movements: Extraocular movements intact. Conjunctiva/sclera: Conjunctivae normal. Pupils: Pupils are equal, round, and reactive to light. Cardiovascular: Rate and Rhythm: Normal rate and regular rhythm. Pulses: Normal pulses. Heart sounds: Normal heart sounds. No murmur heard. No friction rub. Pulmonary: Effort: Pulmonary effort is normal. No respiratory distress. Breath sounds: No stridor. Rhonchi present. No wheezing or rales. Chest: Chest wall: No tenderness. Abdominal: General: Abdomen is flat. There is no distension. Palpations: Abdomen is soft. There is no mass. Tenderness: There is no abdominal tenderness. There is no right CVA tenderness, left CVA tenderness, guarding or rebound. Hernia: No hernia is present. Musculoskeletal: General: No swelling, tenderness, deformity or signs of injury. Normal range of motion. Cervical back: Normal range of motion and neck supple. No rigidity. Right lower leg: No edema. Left lower leg: No edema. Lymphadenopathy: Cervical: No cervical adenopathy. Skin: General: Skin is warm and dry. Coloration: Skin is not jaundiced or pale. Findings: No bruising, erythema, lesion or rash. Neurological: General: No focal deficit present. Mental Status: She is alert and oriented to person, place, and time. Cranial Nerves: No cranial nerve deficit. Sensory: No sensory deficit. Motor: No weakness. Coordination: Coordination normal. Gait: Gait normal. Psychiatric: Mood and Affect: Mood normal. Behavior: Behavior normal. Thought Content: Thought content normal. Judgment: Judgment normal. {ASSESSMENT/PLAN: 1. Acute cough - ICD9: 786.2, ICD10: R05.1 (primary diagnosis) X 4 to 5 days ago Non productive Wosening - XR CHEST 2V FRONTAL/LAT - COVID & INFLUENZA A/B & RSV PCR, ROUTINE 2. Abnormal chest x-ray - ICD9: 793.2, ICD10: R93.89 CXR result reveals IMPRESSION: Fullness in the RIGHT hilum. Although this could represent infiltrate close follow-up recommended to evaluate for complete resolution. If this does not resolve then CT chest would be recommended Did not answer phone call when messaged [employer] message provided to patient RX levaquin F/U with PCP 3. URI, acute - ICD9: 465.9, ICD10: J06.9 - Discussed viral etiology and rationale for treatment. - Symptomatic treatment with prn analgesia - Supportive care with fluids and rest - The patient may also use OTC cough and cold meds as needed, warm salt water gargles, throat lozenges and/or OTC throat spray as needed, and nasal saline gtts and suction prn. - Follow up in 3-5 days if symptoms persist or sooner if worsening of symptoms Faye Norton APRN.WEIGHT TRAINING INSTRUCTOR History and Record Review External record(s) reviewed: prior inpatient record and prior outpatient record. Contributing Factors Social Determinants of Health significantly affecting care: alcohol use Chronic conditions affecting care: hypertension Disposition The patient was discharged. Procedures documented in this encounter [facility] 08-19-2024 Telephone encounter Note Rx sent [facility] 08-19-2024 Miscellaneous Notes Rx sent Patient has been identified by name and date of : Yes RX INSTRUCTIONS: Patient aware RX will be sent to pharmacy. No need to notify patient. LAST APPOINTMENT: 07/07/2024 UPCOMING APPOINTMENT: 12/07/2024 LABS: Hemoglobin (g/dL) Date Value 08/06/2024 14.3 12/14/2020 14.7 Hematocrit (%) Date Value 08/06/2024 41.9 12/14/2020 45.4 WBC (k/uL) Date Value 08/06/2024 7.36 12/14/2020 5.92 Platelet Count (k/uL) Date Value 08/06/2024 290 12/14/2020 298 AST Date Value Ref Range Status 08/06/2024 21 13 - 35 U/L Final ALT Date Value Ref Range Status 08/06/2024 21 7 - 38 U/L Final Creatinine Date Value Ref Range Status 08/06/2024 0.70 0.58 - 0.96 mg/dL Final No results found for: URICACID documented in this encounter [facility] 08-19-2024 Telephone encounter Note Patient has been identified by name and date of : Yes RX INSTRUCTIONS: Patient aware RX will be sent to pharmacy. No need to notify patient. LAST APPOINTMENT: 07/07/2024 UPCOMING APPOINTMENT: 12/07/2024 LABS: Hemoglobin (g/dL) Date Value 08/06/2024 14.3 12/14/2020 14.7 Hematocrit (%) Date Value 08/06/2024 41.9 12/14/2020 45.4 WBC (k/uL) Date Value 08/06/2024 7.36 12/14/2020 5.92 Platelet Count (k/uL) Date Value 08/06/2024 290 12/14/2020 298 AST Date Value Ref Range Status 08/06/2024 21 13 - 35 U/L Final ALT Date Value Ref Range Status 08/06/2024 21 7 - 38 U/L Final Creatinine Date Value Ref Range Status 08/06/2024 0.70 0.58 - 0.96 mg/dL Final No results found for: URICACID [facility] 08-17-2024 Telephone encounter Note Please notify patient: Recommend switching to Amoxicillin - urine culture reviewed. D/C Macrobid. Follow up if symptoms don't resolve. Diflucan rx also sent in to prevent yeast infection. Donnie Hernandez APRN.CNP [facility] 08-17-2024 Miscellaneous Notes Please notify patient: Recommend switching to Amoxicillin - urine culture reviewed. D/C Macrobid. Follow up if symptoms don't resolve. Diflucan rx also sent in to prevent yeast infection. Donnie Hernandez APRN.CNP documented in this encounter [facility] 08-14-2024 Note [facility] 07-29-2024 Telephone encounter Note Please let her know happy to give her a handicap parking permit. Printed, signed and placed in outbox. Thanks. [facility] 07-29-2024 Miscellaneous Notes Please let her know happy to give her a handicap parking permit. Printed, signed and placed in outbox. Thanks. documented in this encounter [facility] 07-20-[address] - 07/20/2024 11:31 AM EDT Add in regular exercise pool, recumbent bike, or seated exercise - goal Follow the Plate Method at lunch and dinner: Use a 9 plate - 1/2 plate vegetables-non starchy such as green beans, greens, broccoli, cauliflower, etc (1 serving of fruit optional outside of plate) - 1/4 plate lean protein-primarily chicken, turkey fish, lean red 1-2 x per week at most (size of palm) - 1/4 plate whole grain or starchy vegetable such as corn, peas, potatoes, beans (size of fist, 1 cup) Change to old fashioned or steel cut oats; use [employer] milk, Protein drink, ground Flax seed; All meals and snacks at the dinner table; minimize distractions, no TV while eating. Make meals last at least 20 min, chew each bite of food 20 x per bite.Portion out all foods, never eat out of container. Become more mindful of meal: Enjoy flavors, textures etc. Use hunger/fullness scale. Consider tracking intake with tameka such as [employer] or [employer]™ Network aiming for 1500 calories; OK to track 2-3 x per week. documented in this encounter [facility] 07-20-2024 Note [facility] 07-20-2024 History of Present illness Narrative Nutrition Therapy Initial Assessment Nutrition Diagnosis: Overweight/obesity, related to, excess energy intake and physical inactivity, as evidenced by BMI above normative standard for age and gender. RECOMMENDED MALNUTRITION DIAGNOSIS: NO MALNUTRITION IDENTIFIED NUTRITION CARE PLAN Nutrition Intervention 07/20/2024: modify type and amount of food or beverage Add in regular exercise pool, recumbent bike, or seated exercise - goal Follow the Plate Method at lunch and dinner: Use a 9 plate - 1/2 plate vegetables-non starchy such as green beans, greens, broccoli, cauliflower, etc (1 serving of fruit optional outside of plate) - 1/4 plate lean protein-primarily chicken, turkey fish, lean red 1-2 x per week at most (size of palm) - 1/4 plate whole grain or starchy vegetable such as corn, peas, potatoes, beans (size of fist, 1 cup) Change to old fashioned or steel cut oats; use [employer] milk, Protein drink, ground Flax seed; All meals and snacks at the dinner table; minimize distractions, no TV while eating. Make meals last at least 20 min, chew each bite of food 20 x per bite.Portion out all foods, never eat out of container. Become more mindful of meal: Enjoy flavors, textures etc. Use hunger/fullness scale. Consider tracking intake with tameka such as [employer] or [employer]™ Network aiming for 1500 calories; OK to track 2-3 x per week. Add in regular exercise pool, recumbent bike, or seated exercise - goal Follow the Plate Method at lunch and dinner: Use a 9 plate - 1/2 plate vegetables-non starchy such as green beans, greens, broccoli, cauliflower, etc (1 serving of fruit optional outside of plate) - 1/4 plate lean protein-primarily chicken, turkey fish, lean red 1-2 x per week at most (size of palm) - 1/4 plate whole grain or starchy vegetable such as corn, peas, potatoes, beans (size of fist, 1 cup) Change to old fashioned or steel cut oats; use [employer] milk, Protein drink, ground Flax seed; All meals and snacks at the dinner table; minimize distractions, no TV while eating. Make meals last at least 20 min, chew each bite of food 20 x per bite.Portion out all foods, never eat out of container. Become more mindful of meal: Enjoy flavors, textures etc. Use hunger/fullness scale. Consider tracking intake with tameka such as [employer] or [employer] For[employer]™ Network aiming for 1500 calories; OK to track 2-3 x per week. Nutrition Monitoring & Evaluation: 1-2 lb weight loss per week Need for Follow up: 46 weeks Patient presents for initial MNT as relates to class 3 obesity Body mass index is 44.26 kg/m . 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 Other medical issues NELI using BiPaP, Dyslipidemia, HTN, CAD. Weight has fluctuated, success in the past with WW. Has goal of 190 lbs. Intake noted for eating usually three meals, limited snacking. Appears excess calories maybe from cheese, likely larger portions. Beverages appropriate, has reduced wine. Currently no regular exercise and generally more sedentary during the day; is more active in summer. Patient's symptoms are: Weight Concerns: failure to lose weight Diet History: Breakfast - instant oatmeal with fruit and coffee - with skim milk Snack - not usually Lunch - turkey burger, cottage cheese; left overs; sandwich of ham and cheese on WW; water Snack - not usually Dinner - cheese n nut thins crackers and couple glasses wine, then boneless chicken wings; before that cheese n crackers and turkey burger, water Snack - no Beverages - coffee, water, wine Alcohol- one glass wine dry Vitamins/Supplements - see medlist, also cranberry extract Less careful on own Activity: Activities of Daily 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 Resting Metabolic Rate: 1731 Malnutrition Screening Significant unintentional weight loss? No Eating less than 75% of usual intake for more than 2 weeks? No Potential Signs of Inflammation: no identifiable sources Education Materials Provided: None this visit READINESS TO LEARN Cognitive ability: Alert and oriented Motivation to learn: Interested Family support: Unable to assess - Family not present Instruction provided to: Patient Patient learns best by: Individual Instruction Factors affecting learning: None Physical limitations affecting learning: None Referred/Supervised by: Kristin MNT Billing Type: Initial Assess/15 min 3 units SIGNATURE: Aspen Ceballos RD PATIENT NAME: Priscilla Ramos DATE: July 20, 2024 TIME: 11:04 AM documented in this encounter [facility] 07-10-2024 Instructions Emilee Condon MD - 07/10/2024 11:21 AM EDT - Continue taking half a pill of Hydrochlorothiazide daily. - Monitor your blood pressure daily and report the readings to your corrugator operator's office. - Drink 8 cups of water daily; avoid excessive water intake to prevent low sodium levels. - Referral for carotid Doppler ultrasound scheduled; complete the test as scheduled. - Referral for peripheral arterial Doppler ultrasound scheduled; complete the test as scheduled. - Follow up with Cristian Coffman in August. - Next wellness visit with your primary care physician is scheduled for December. documented in this encounter [facility] 07-10-2024 Note [facility] 07-10-2024 History of Present illness Narrative This note was created using Lymb[employer]. Subjective Priscilla Ramos is a 69 year old female. Patient presents with: Hospital F/U SUBJECTIVE: Priscilla Ramos is a 69 year old year old lady here today for hospital follow up appointment for review of medical conditions. Priscilla is a 69-year-old female with a history of HTN, hypercholesterolemia, and NELI, presenting for follow-up after a recent hospitalization for dizziness and hyponatremia. Priscilla was recently hospitalized for severe dizziness and difficulty ambulating. She reports that the symptoms began after a weekend of stress and excessive wine consumption, followed by increased water intake. She believes that her antihypertensive medication, hydrochlorothiazide, acted as a diuretic, leading to hyponatremia. Upon admission, her sodium level was 130 mEq/L. She was kept overnight for observation and underwent a neurological consultation, including an MRI, which ruled out a CVA. She was treated with a saline drip and noted improvement in her symptoms the following day. During her hospital stay, her antihypertensive medication was changed to amlodipine without her prior consultation. She did not tolerate amlodipine well in the past and decided to resume taking half a pill of hydrochlorothiazide on her own. She has been monitoring her blood pressure at home and reports readings mostly in the 130s. She is scheduled to report her blood pressure readings to her corrugator operator's office today. Priscilla also reports experiencing leg swelling, pain, and numbness, for which she has been using support stockings with some relief. She had carotid and peripheral artery studies done approximately 2 years ago, which were normal. She expresses a desire for a carotid Doppler study for further evaluation. She has a history of NELI and uses a BiPAP machine managed by Dr. Boateng. 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 She has an upcoming appointment with a brewing technician to address her weight gain and high glucose levels. She is interested in participating in a weight loss study program. Her current medications include losartan 100 mg daily, rosuvastatin taken on Saturday, Saturday, and Saturday, and Wellbutrin. She has not yet started taking sulfasalazine, which was recently prescribed by her machine feeder floorperson, Dr. Alfredo. She occasionally takes colestipol for gastrointestinal symptoms. PAST MEDICAL HISTORY Diagnosis Date Abnormal mammogram, unspecified 06/27/2006 Acquired hypothyroidism 07/04/2017 CAD (coronary artery disease) CAD (coronary artery disease) 07/25/2022 Calculus of gallbladder with chronic cholecystitis without obstruction 08/01/2015 Corns and callosities 01/24/2014 Diarrhea Dysphagia 05/27/2015 feeling like food sits in bottom of esophagus if eats heavier than usual meal Dysthymic disorder Depression (non-psychotic) Elevated antinuclear antibody (KELTON) level 08/25/2014 Essential hypertension HTN (hypertension) 07/25/2022 Internal hemorrhoids without mention of complication Left wrist sprain 07/2022 Myalgia and myositis, unspecified FIBROMYALGIA Obesity, unspecified Obesity Obstructive sleep apnea DME [employer] Osteoarthritis of multiple joints PAIN LEG (Right) 02/20/2005 Temporomandibular joint disorders, unspecified 11/23/2006 Current Outpatient Medications Medication Sig sulfaSALAzine (AZULFIDINE) 500 mg tablet 500mg once/day x1 week, then 500mg twice/day x1 wk, then 500mg every morning & 1000mg every evening thereafter gabapentin (NEURONTIN) 400 mg capsule Take 2 capsule 60-90 minutes before bedtime. acetaminophen (TYLENOL ARTHRITIS PAIN) 650 mg CR tablet Take 1,300 mg by mouth once daily. levothyroxine (SYNTHROID) 25 mcg tablet Take 1 tablet by mouth once daily. rosuvastatin (CRESTOR) 5 mg tablet Take 1 tablet by mouth every Saturday, Saturday, and Saturday. hydroCHLOROthiazide 25 mg tablet Take 1 tablet by mouth every afternoon. acetaminophen (TYLENOL EXTRA STRENGTH) 500 mg tablet Take 1,000 mg by mouth every 8 hours as needed for pain. colestipol (COLESTID) 1 gram tablet Take 1-2 tablets by mouth once daily. As directed diclofenac (VOLTAREN ARTHRITIS PAIN) 1 % topical gel Apply 2 g to affected area four times daily as needed (wrist pain). BIPAP losartan (COZAAR) 100 mg tablet Take 100 mg by mouth once daily. aspirin 81 mg chewable tablet Take 81 mg by mouth once daily. ubidecarenone Q-10 (COENZYME Q-10) 10 mg cap Take 100 mg by mouth two times a day. hyperimmune colostrum, bovine 200 mg tab Take 2 tablets by mouth twice daily. Ca/D3/mag ox/zinc/commercial helicopter pilot/jose/bor (CALCIUM 600-D3 PLUS, MAG-ZINC, ORAL) turmeric/turmeric ext/pepr ext (TURMERIC-TURMERIC EXT-PEPPER) 900-100-5 mg cap CPAP Bipap 17/13 cm H2O, Heat Humidity, suitable mask, [employer] supplies, opt [place], G47.33. cholecalciferol (VITAMIN D3) 2,000 unit tablet Take 2,000 Units by mouth once daily. FLUoxetine HCl (PROZAC) 40 mg capsule Take 1 capsule by mouth once daily. (Dr. Garcia) CYANOCOBALAMIN, VITAMIN B-12, (VITAMIN B-12 ORAL) Take by mouth. buPROPion XL (WELLBUTRIN XL) 150 mg 24 hr tablet Take one(1) tablet daily. Biotin (NAIL-EX) 2,500 mcg ORAL Tab Take 1,000 mcg by mouth once daily. DAILY VITAMIN TAB Take one(1) tablet daily. No current facility-administered medications for this visit. Review of Systems Objective BP 136/80 Pulse 90 Resp 18 Wt 120.2 kg (264 lb 15.9 oz) SpO2 96% BMI 44.10 kg/m Last 5 Encounter Wt Readings: Date: Wt: 07/10/2024 120.2 kg (264 lb 15.9 oz) 07/07/2024 122 kg (268 lb 15.4 oz) 06/26/2024 122 kg (269 lb) 06/15/2024 122.7 kg (270 lb 8.1 oz) 03/31/2024 122.2 kg (269 lb 6.4 oz) No waist measurement recorded Estimated body mass index is 44.1 kg/m as calculated from the following: Height as of 07/07/24: 165.1 cm (5' 5). Weight as of this encounter: 120.2 kg (264 lb 15.9 oz). Last 5 Encounter BP Readings: Date: BP: 07/10/2024 136/80 07/07/2024 138/84 06/26/2024 136/83 06/15/2024 128/78 03/31/2024 126/72 07/10/24 1017 07/10/24 1107 07/10/24 1110 BP: 136/80 132/78 137/73 BP Site: Left Arm Left Arm BP Position: Sitting Sitting Pulse: 90 Resp: 18 SpO2: 96% Weight: 120.2 kg (264 lb 15.9 oz) Physical Exam Constitutional: Appearance: Normal appearance. HENT: Head: Normocephalic. Eyes: Conjunctiva/sclera: Conjunctivae normal. Cardiovascular: Rate and Rhythm: Normal rate and regular rhythm. Heart sounds: Normal heart sounds. S4 sounds: Doughy edema in legs. Pulmonary: Effort: Pulmonary effort is normal. Breath sounds: Normal breath sounds. Skin: General: Skin is warm and dry. Neurological: General: No focal deficit present. Mental Status: She is alert and oriented to person, place, and time. Psychiatric: Mood and Affect: Mood normal. Behavior: Behavior normal. Thought Content: Thought content normal. Judgment: Judgment normal. Assessment and Plan # Hyponatremia (E87.1) # Episodic lightheadedness (R42) - Recent hospitalization for severe dizziness and difficulty ambulating; sodium level was 130 mEq/L on admission. - Neurology consult and MRI performed; no evidence of cerebrovascular accident. - Symptoms likely secondary to excessive water intake and hydrochlorothiazide use. - Discontinued hydrochlorothiazide; initiated IV saline during hospitalization with symptomatic improvement. - Ordered carotid Doppler ultrasound to further evaluate vascular status. - Educated on appropriate fluid intake to prevent recurrence. # Primary hypertension (I10) - Previously managed with hydrochlorothiazide, now discontinued due to hyponatremia. - Amlodipine was prescribed during hospitalization but not tolerated; patient resumed taking half a dose of hydrochlorothiazide. - Home blood pressure readings in the 130s mmHg. - Current blood pressure 132/78 mmHg; home cuff validated against office measurements. - Continue monitoring blood pressure daily; follow-up with corrugator operator Dr. Cristian Coffman in August. # Peripheral vascular disease (HCC) (I73.9) - Reports occasional leg pain, numbness, and swelling. - Ordered bilateral lower extremity arterial Doppler studies to assess vascular status. - Previous studies in June 2022 were normal. # Class 3 severe obesity due to excess calories with body mass index (BMI) of 40.0 to 44.9 in adult, unspecified whether serious comorbidity present (HCC) (E66.813) - Current weight 264 lbs, BMI 40.2 kg/m . - Discussed importance of weight management; patient has lost 4 lbs since last visit. - Referred to brewing technician for dietary counseling. - Encouraged regular physical activity; discussed potential benefits of aquatic exercise. - Patient expressed interest in participating in a weight management study. I spent a total of 44 minutes on the date of the service which included preparing to see the patient, [id number] patient care, completing clinical documentation, obtaining and/or reviewing separately obtained history, performing a medically appropriate examination, counseling and educating the patient/family/caregiver, ordering medications, tests, or procedures, independently interpreting results (not separately reported), and communicating results to the patient/family/caregiver. Emilee Condon MD documented in this encounter [facility] 07-07-2024 Instructions Sarahi Alfredo MD - 07/07/2024 1:46 PM EDT Start sulfasalazine as follows: Take 1 tablet (500mg) once/day x1 week, then 1 tablet twice daily (500mg twice daily) x1 week, then 1 tablet in the morning/2 tablets in the evening (500mg every morning & 1000mg every evening) thereafter __ Sulfasalazine monitoring plan: We'll check the labs every 3-4 weeks for the 1st three months and if results are stable during this time, then we can space out the labs to every 3 months thereafter. The standing lab orders are in the system, so you can just have the labs done when you're due (no need to be fasting). I don't automatically refill the sulfasalazine so when you're getting close to running out, please let us know and I can refill it. I initially give 30-day supplies at a time. Once we're doing every 3 month labs, we can switch to providing a 90-day supply of the sulfasalazine at a time (please let us know if you'd prefer this switch at that time). documented in this encounter [facility] 07-07-2024 Note [facility] 07-07-2024 History of Present illness Narrative On 07/07/2024, I had the pleasure of evaluating Priscilla Ramos in a follow-up [facility] Rheumatology appointment for inflammatory arthritis. HPI: To review, Pricsilla Ramos is a 69 year old female (goes by [employer]) - With longstanding fibromyalgia for several years, diagnosed sometime in the mid-to-late . - In , had a R TKA - Around , Dr. Byrd diagnosed with arthritis (unsure of a more specific diagnosis, unsure if osteo vs inflammatory). Had pain in the shoulders, neck and mid>low back at that time. Started on HCQ and tramadol. Unsure if either has helped with the pain which has progressed over time. Unsure if she was on oral steroids in past. - In , reported increased pain in the hands/fingers so advised to add MTX which she deferred. - In Nov, reported pain in the MCPs and PIPs. No pain in the wrists or DIPs. Eases with activity. Worse in morning. Advised to taper off tramadol - In Jan, reported 50% improvement in joint stiffness with HCQ - In September, reported concern about potential for easy sunburn and skin issues with HCQ. Was advised she could hold it for 2 weeks to see if any improvement in itchy scalp. - In Jan, reported that stopping HCQ helped with skin issues. No change in joint symptoms without HCQ. Referred to PT for shoulder pain which helped per May visit - In July, s/p fall resulting in L wrist fragility fx. Advised starting alendronate (vs reclast), she declined both - In Mar, reported L knee OA s/p CSI 1.5 months prior with relief, took 2 weeks to kick in. Doing PT for low back pain/LLE numbness, was seeing spine. - After August visit, SSZ explained for which she wanted more time to consider - Feb US with minimal active synovitis of various bilateral hand joints - Today, reports she has had some bad times with the arthritis. Not in a bad place right now. 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 [place] - Last plaquenil eye exam normal in September (off HCQ) PAST MEDICAL HISTORY Diagnosis Date Abnormal mammogram, unspecified 06/27/2006 Acquired hypothyroidism 07/04/2017 CAD (coronary artery disease) CAD (coronary artery disease) 07/25/2022 Calculus of gallbladder with chronic cholecystitis without obstruction 08/01/2015 Corns and callosities 01/24/2014 Diarrhea Dysphagia 05/27/2015 feeling like food sits in bottom of esophagus if eats heavier than usual meal Dysthymic disorder Depression (non-psychotic) Elevated antinuclear antibody (KELTON) level 08/25/2014 Essential hypertension HTN (hypertension) 07/25/2022 Internal hemorrhoids without mention of complication Left wrist sprain 07/2022 Myalgia and myositis, unspecified FIBROMYALGIA Obesity, unspecified Obesity Obstructive sleep apnea DME [place] Osteoarthritis of multiple joints PAIN LEG (Right) 02/20/2005 Temporomandibular joint disorders, unspecified 11/23/2006 PAST SURGICAL HISTORY Procedure Laterality Date ARTHRP KNE CONDYLE&PLATU MEDIAL&LAT COMPARTMENTS 09/2011 right DELIVERY ONLY , low cervical DELIVERY ONLY , low cervical COLONOSCOPY 08/01/2022 repeat in 5 years COLONOSCOPY FLX DX W/COLLJ SPEC WHEN PFRMD 07/29/2017 Colonoscopy COLONOSCOPY W/BIOPSY SINGLE/MULTIPLE 02/10/2007 LAPS SURG CHOLECYSTECTOMY W/CHOLANGIOGRAPHY 08/17/2015 LEFT HEART CATH,PERCUTANEOUS PAST SURGICAL HISTORY OF foot-left PAST SURGICAL HISTORY OF left foot - no hardware STEREOTACTIC CORE BIOPSY 07/04/2006 UOQ RIGHT AVANI W/WO REMOVAL TUBE OVARY 1999 Hysterectomy, AVANI ovaries remain ALLERGIES No Known Allergies MEDICATIONS: Current Outpatient Medications Medication Sig gabapentin (NEURONTIN) 400 mg capsule Take 2 capsule 60-90 minutes before bedtime. acetaminophen (TYLENOL ARTHRITIS PAIN) 650 mg CR tablet Take 1,300 mg by mouth once daily. levothyroxine (SYNTHROID) 25 mcg tablet Take 1 tablet by mouth once daily. rosuvastatin (CRESTOR) 5 mg tablet Take 1 tablet by mouth every Saturday, Saturday, and Saturday. hydroCHLOROthiazide 25 mg tablet Take 1 tablet by mouth every afternoon. acetaminophen (TYLENOL EXTRA STRENGTH) 500 mg tablet Take 1,000 mg by mouth every 8 hours as needed for pain. colestipol (COLESTID) 1 gram tablet Take 1-2 tablets by mouth once daily. As directed diclofenac (VOLTAREN ARTHRITIS PAIN) 1 % topical gel Apply 2 g to affected area four times daily as needed (wrist pain). BIPAP losartan (COZAAR) 100 mg tablet Take 100 mg by mouth once daily. aspirin 81 mg chewable tablet Take 81 mg by mouth once daily. ubidecarenone Q-10 (COENZYME Q-10) 10 mg cap Take 100 mg by mouth two times a day. hyperimmune colostrum, bovine 200 mg tab Take 2 tablets by mouth twice daily. Ca/D3/mag ox/zinc/commercial helicopter pilot/jose/bor (CALCIUM 600-D3 PLUS, MAG-ZINC, ORAL) turmeric/turmeric ext/pepr ext (TURMERIC-TURMERIC EXT-PEPPER) 900-100-5 mg cap CPAP Bipap 17/13 cm H2O, Heat Humidity, suitable mask, [employer] supplies, opt [place], G47.33. cholecalciferol (VITAMIN D3) 2,000 unit tablet Take 2,000 Units by mouth once daily. FLUoxetine HCl (PROZAC) 40 mg capsule Take 1 capsule by mouth once daily. (Dr. Garcia) CYANOCOBALAMIN, VITAMIN B-12, (VITAMIN B-12 ORAL) Take by mouth. buPROPion XL (WELLBUTRIN XL) 150 mg 24 hr tablet Take one(1) tablet daily. Biotin (NAIL-EX) 2,500 mcg ORAL Tab Take 1,000 mcg by mouth once daily. DAILY VITAMIN TAB Take one(1) tablet daily. No current facility-administered medications for this visit. FAMILY HISTORY Problem Relation Age of Onset Diabetes Mother late in life at 75 Stroke Mother x3 Cancer Father myeloma (from immunesuppressants) at age 80 of chf and perf. bowel other (ESRD) Father had sudden renal failure; had kidney transplant at 68yo Thyroid Brother Hypertension Son No Known Problems Son Anesthesia Problems No Family History Blood Clots No Family History Clotting Disorder No Family History SOCIAL HISTORY: Lives in [place]. 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 2 sons. 3 grandchildren Tobacco use: None Alcohol use: 2-3 glasses of wine/day Drug use: None PHYSICAL EXAM: VITALS: Blood pressure 138/84, pulse 102, temperature 36.2 C (97.2 F), temperature source Temporal, height 165.1 cm (5' 5), weight 122 kg (268 lb 15.4 oz). CONSTITUTIONAL: Well-appearing, in NAD. SKIN: No rash. No sclerodactyly, calcinosis, telangiectasias, digital ulcers, or skin thickening. EYES: No scleral icterus or conjunctivitis ENT and Mouth: External ears normal. Nares normal. RESPIRATORY: Normal breath sounds, clear to auscultation. CARDIOVASCULAR: Regular rate and rhythm, no murmurs or rubs EXTREMITIES/LYMPH: No edema bilaterally NEURO: Awake, alert and oriented, uses cane for ambulation MUSCULOSKELETAL: JOINT APPEARANCE: No erythema or warmth of any upper or lower extremity joint. RANGE OF MOTION: Able to fully close fists and curl fingers bilaterally. SWOLLEN JOINTS/SYNOVITIS: No synovitis of any joint. TENDER JOINTS: Tenderness to palpation of the bilateral MCPs and PIPs *Nov Widespread Pain Index: 15 (0-19) Symptoms Severity Scale: 7 (0-12) WPI>7 and SS Scale>5 OR WPI 3-6 and SS Scale >9 consistent with fibromyalgia LABORATORY: Latest Ref Rng 03/23/2024 06/10/2024 Protein, Total 6.3 - 8.0 g/dL 7.2 Albumin 3.9 - 4.9 g/dL 4.3 Calcium 8.5 - 10.2 mg/dL 9.8 Bilirubin, Total 0.2 - 1.3 mg/dL 0.5 Alkaline Phosphatase 34 - 123 U/L 90 AST 13 - 35 U/L 23 ALT 7 - 38 U/L 21 Glucose 74 - 99 mg/dL 131 (H) BUN 7 - 21 mg/dL 15 Creatinine 0.58 - 0.96 mg/dL 0.65 Sodium 136 - 144 mmol/L 136 Potassium 3.7 - 5.1 mmol/L 3.9 Chloride 98 - 107 mmol/L 98 CO2 22 - 30 mmol/L 26 Anion Gap 8 - 15 mmol/L 12 eGFR >=60 mL/min/1.73m 95 WBC 3.70 - 11.00 k/uL 5.81 RBC 3.90 - 5.20 m/uL 4.42 Hemoglobin 11.5 - 15.5 g/dL 13.8 Platelet Count 150 - 400 k/uL 313 MPV 9.0 - 12.7 fL 9.0 Absolute nRBC <0.01 k/uL <0.01 Vitamin D 25 Hydroxy 31.0 - 80.0 ng/mL 36.4 *October nl quant gold, hep b/c Latest Ref Rng 11/15/2023 06/10/2024 CCP Antibody IgG Qualitative Negative Negative CCP Antibody, IgG <20 Units <15 Rheumatoid Factor <16 IU/mL 26 (H) 26 (H) Component Latest Ref Rng & Units 08/21/2014 KELTON Negative Positive (A) KELTON Titer Negative 1:80 (A) KELTON Pattern Speckled STUDIES: *Feb US wrists/hands- Minimal active synovitis involving the right third PIP, left second and third MCP joints and right wrist. No tenosynovitis of the hand or wrist. *Nov MRI L-spine- Advanced lumbar spondylosis with multiple levels of severe spinal canal stenosis at L2-L3, L3-L4 and L4-L5. Up to severe foraminal stenosis on the right at L4-L5. IMPRESSION and PLAN: 1. Seropositive RA: Pain in the wrists, MCPs, and PIPs with +RF and US revealing scattered synovitis. HCQ ineffective, caused skin issues and no change since stopping in September aside from increased shoulder pain. With persistent MCP and PIP pain - Reviewed the diagnosis - Start SSZ goal 1.5g/day (to make sure it's tolerated first and want the lowest effective dose). Potential side effects were explained including rash, GI upset, bone marrow suppression, and liver toxicity requiring routine lab monitoring. Literature regarding sulfasalazine was provided for review. - Check labs in 3-4 weeks. Notify of results via Unbxdt 2. Generalized osteoarthritis: Hands, spine, knee s/p R TKA in . Tapered off tramadol - Tylenol prn - Home PT exercises for shoulder/back - Consider alternative therapies such as lyrica if needed (can't try savella given she is currently on wellbutrin) - Avoid NSAIDs PO given elevated July Cr level - Handicap parking permit letter provided 3. Spinal stenosis/lumbar spondylosis: Per MRI - Spine clinic management 4. Fibromyalgia: Meets criteria based on WPI/SS scale score as above. - Aerobic exercise - Please refer to the fibromyalgia treatment guidelines as detailed in the Nov note for further management by PCP 5. Clinical osteoporosis: s/p July L wrist fragility fx. Declined starting alendronate (or reclast) - Has deferred tx - Ca/vit D - Check DXA in Feb 6. General health maintenance: - Completed the covid vaccination series in July - Advised to continue follow-up with PCP for routine health maintenance and malignancy screening Follow-up in 6 months with Prince and 12 months with me. Thank you for allowing me to participate in the care of your patient. Sarahi Alfredo MD documented in this encounter [facility] 07-01-2024 Note [facility] Medical Records Department [address] [place] [address] Discharge Summary 07/01/24 1611 MR#: [id number] Acct: [id number] Name: PRISCILLA RAMOS) Rep #: [id number] : 1955 69 From: Dieudonne Olmos MD PCP: Dr. Emilee Condon MD Status:DIS REI Location: [place] [address] Providers Date of Admission: 06/30/24 Primary Care Physician: Dr. Emilee Condon MD Consultations 06/30/24 22:58 Consult: Tele-Neurology Routine Consulting Provider: [facility] Reason for Consult: Acute Ischemic Stroke/TIA EMERGENT Consult: No MD Notified: Yes Date Notified: 07/01/24 Time Notified: 00:48 Method of Notification: Answering Service Method of Consult:: Telemedicine Nursing Unit Staff Notify [facility] of Tele-Neurology Consult: Yes Reason For Visit: INTERMITTENT VERTIGO AND ATAXIA Diagnosis Discharge Diagnosis (1) Dizziness: Status: Acute Code(s): R42 - Dizziness and giddiness (2) Ataxia: Status: Acute Code(s): R27.0 - Ataxia, unspecified (3) Hyponatremia: Status: Acute Code(s): E87.1 - Hypo-osmolality and hyponatremia (4) Adverse drug reaction: Status: Acute Code(s): T50.905A - Adverse effect of unspecified drugs, medicaments and biological substances, initial encounter Qualifiers: Encounter type: initial encounter Qualified Code(s): T50.905A - Adverse effect of unspecified drugs, medicaments and biological substances, initial encounter (5) Uncontrolled hypertension: Status: Acute Code(s): I10 - Essential (primary) hypertension (6) Acute reaction to situational stress: Status: Acute Code(s): F43.0 - Acute stress reaction (7) Abnormal CXR: Status: Acute Code(s): R93.89 - Abnormal findings on diagnostic imaging of other specified body structures (8) Morbid obesity with BMI of 40.0-44.9, adult: Status: Acute Code(s): E66.01 - Morbid (severe) obesity due to excess calories; Z68.41 - Body mass index [BMI] 40.0-44.9, adult (9) Family history of CVA: Status: Chronic Code(s): Z82.3 - Family history of stroke (10) Hyperlipidemia: Status: Acute Code(s): E78.5 - Hyperlipidemia, unspecified Qualifiers: Hyperlipidemia type: unspecified Qualified Code(s): E78.5 - Hyperlipidemia, unspecified Medications at Discharge Home Medications cyanocobalamin (vitamin B-12) 500 mcg sublingual tablet 500 mcg sublingual DAILY 12/14/14 multivitamin with folic acid 400 mcg tablet (Thera) 1 tab PO DAILY 12/14/14 trazodone 50 mg tablet 25 mg PO QHS 12/14/14 levothyroxine 25 mcg tablet 25 mcg PO DAILY 07/21/15 biotin 2,500 mcg capsule 2,500 mcg PO DAILY 05/14/22 calcium 600 mg-D3 20 mcg-magnesium 50 xa-Wy-svfggz-gonzalo-boron tablet (Calcium 600-D3 Plus (mag- zinc)) 1 tab PO DAILY 05/14/22 cholecalciferol (vitamin D3) 25 mcg (1,000 unit) tablet (Vitamin D3) 2,000 unit PO QHS 05/14/22 gabapentin 400 mg capsule 800 mg PO QHS 05/14/22 aspirin 81 mg tablet,delayed release (Adult Aspirin Regimen) 81 mg PO DAILY 06/07/22 coenzyme Q10 50 mg capsule (Co Q-10) 50 mg PO DAILY 12/31/22 rosuvastatin 5 mg tablet 5 mg PO .3 x week 12/31/22 bupropion HCl 150 mg 24 hr tablet, extended release 150 mg PO DAILY #90 tabs 12/12/23 fluoxetine 40 mg capsule 40 mg PO DAILY #90 caps 02/03/24 losartan 100 mg tablet 100 mg PO QHS bp 06/30/24 amlodipine 5 mg tablet (Norvasc) 5 mg PO DAILY #30 tabs 07/01/24 Hospital Course Operations None Procedures 2-D Echocardiogram Summary of Care Provided Minutes Spent on Discharge: 33 Hospital Course: Per HPI: PRISCILLA RAMOS, is a 69 F with a past medical history of essential hypertension; on losartan and hydrochlorothiazide, hyperlipidemia; on rosuvastatin 3 times per week, history of Tiffany's thyroiditis with subsequent hypothyroidism; on levothyroxine, morbid obesity; with BMI of 45.7 this admission, NELI; on BiPAP, history of CAD; on baby aspirin daily, history of diastolic dysfunction without CHF, history of claudication, history of COVID-19, history of fibromyalgia; on gabapentin, history of depression; on bupropion, trazodone and fluoxetine, history of laparoscopic cholecystectomy, history of hernia; s/p repair, remote history of 2 C-sections, family history of CVA, history of osteoporosis and OA; s/p right TKR who presents to [facility] ER complaining of dizziness and ataxia. Ms. Ramos reports her symptoms began approximately 2 days prior to admission on Friday, June 28, 2024 with intermittent dizziness and lightheadedness since that time as she was caring for her eleven 16-year-old dog who is in the process of dying causing her severe acute distress and causing her to drink more wine than she normally would. She also admits to associated nausea but she denies vomiting which caused her to recently increase her free water intake because she felt like she might be dehydrated. She then w (more content not included)... [facility] 06-30-2024 Telephone encounter Note Triage Protocol Recommended: See provider within 24 hours. Appt made for tomorrow. Pt aware to call 911/go to ER for severe sx's as dicussed or call provider's office if sx's worsen or for questions. Reason for Disposition [1] MODERATE dizziness (e.g., interferes with normal activities) AND [2] has NOT been evaluated by doctor (or DEVELOPMENT DIRECTOR/PA) for this (Exception: Dizziness caused by heat exposure, sudden standing, or poor fluid intake.) Answer Assessment - Initial Assessment Questions Patient contacted for further triage for appt request regarding dizziness and weakness. Pt states this past Saturday was a really rough night with her dog. He was not well. Reports she drank a lot of wine that night. States she does drink wine regularly but Saturday night she drank a significant amount. Did not faint/pass out or fall. Saturday she felt weak and dizzy at times and thought it was due to all the wine she drank Saturday night. Reports since then she has been drinking a lot of water. Nauseated at times today but has not vomited. Has had about 60-65 ounces of water so far today. States this is much more than she usually drinks. Reports she did have to put her dog down yesterday. Grieving. Decreased appetite. Did eat breakfast this morning. Reports today continues to feel weak. No dizziness during call. Alert. No confusion. Speech is clear. Able to walk. Balance is okay. At times when she stands up she does feel mildly dizzy, but not all the time. No weakness on one side of her body. No chest pain, SOB, or feeling faint. No vomiting or diarrhea over the past few days. Dies reports that once a year or so she gets a blocked salivary glank in her left cheek and states she did have this Saturday night but it has resolved by eating hard candy-as advised from a past provider Reports she takes multiple medications including BP medications but does not check BP. 1. DESCRIPTION: (as above) 2. LIGHTHEADED: sometimes, upon standing 3. VERTIGO: denies 4. SEVERITY: MILD: Feels slightly dizzy, but walking normally. 5. ONSET: this past saturday 6. AGGRAVATING FACTORS: standing, certain activities 7. HEART RATE: not measured 8. CAUSE: Pt not certain- reports could be emotional distress 9. RECURRENT SYMPTOM: not regularly 10. OTHER SYMPTOMS: as above Protocols used: Dizziness - [id number] [facility] 06-30-2024 Miscellaneous Notes Triage Protocol Recommended: See provider within 24 hours. Appt made for tomorrow. Pt aware to call 911/go to ER for severe sx's as dicussed or call provider's office if sx's worsen or for questions. Reason for Disposition [1] MODERATE dizziness (e.g., interferes with normal activities) AND [2] has NOT been evaluated by doctor (or DEVELOPMENT DIRECTOR/PA) for this (Exception: Dizziness caused by heat exposure, sudden standing, or poor fluid intake.) Answer Assessment - Initial Assessment Questions Patient contacted for further triage for appt request regarding dizziness and weakness. Pt states this past Saturday was a really rough night with her dog. He was not well. Reports she drank a lot of wine that night. States she does drink wine regularly but Saturday night she drank a significant amount. Did not faint/pass out or fall. Saturday she felt weak and dizzy at times and thought it was due to all the wine she drank Saturday night. Reports since then she has been drinking a lot of water. Nauseated at times today but has not vomited. Has had about 60-65 ounces of water so far today. States this is much more than she usually drinks. Reports she did have to put her dog down yesterday. Grieving. Decreased appetite. Did eat breakfast this morning. Reports today continues to feel weak. No dizziness during call. Alert. No confusion. Speech is clear. Able to walk. Balance is okay. At times when she stands up she does feel mildly dizzy, but not all the time. No weakness on one side of her body. No chest pain, SOB, or feeling faint. No vomiting or diarrhea over the past few days. Dies reports that once a year or so she gets a blocked salivary glank in her left cheek and states she did have this Saturday night but it has resolved by eating hard candy-as advised from a past provider Reports she takes multiple medications including BP medications but does not check BP. 1. DESCRIPTION: (as above) 2. LIGHTHEADED: sometimes, upon standing 3. VERTIGO: denies 4. SEVERITY: MILD: Feels slightly dizzy, but walking normally. 5. ONSET: this past saturday 6. AGGRAVATING FACTORS: standing, certain activities 7. HEART RATE: not measured 8. CAUSE: Pt not certain- reports could be emotional distress 9. RECURRENT SYMPTOM: not regularly 10. OTHER SYMPTOMS: as above Protocols used: Dizziness - [id number] documented in this encounter [facility] 06-30-2024 Telephone encounter Note See other triage encounter for 06/30/24. Shama Tabares RN [facility] 06-30-2024 Miscellaneous Notes See other triage encounter for 06/30/24. Shama Tabares RN documented in this encounter [facility] 06-26-2024 Note [facility] 06-26-2024 History of Present illness Narrative ESTABLISHED PATIENT VISIT CHIEF COMPLAINT: Follow Up HISTORY OF PRESENT ILLNESS: Priscilla Ramos is a 69 year old female, BMI 44.76 kg/m2 with a PMH significant for and per last office visit of 12/27/23: 1. NELI on CPAP - ICD9: 327.23, ICD10: G47.33 (primary diagnosis) Overall doing well on PAP with both subjective and objective compliance and perceived benefit. No PAP complaints. Encouraged compliance. Reminded pt to clean and replace equipment regularly. Advised pt not to drive or operate heavy machinery if sleepy. 2. RLS (restless legs syndrome) - ICD9: 333.94, ICD10: G25.81 Stable on gabapentin 400 to 800mg prior to bedtime. No side effects. 3. Fibromyalgia - ICD9: 729.1, ICD10: M79.7 Stable on gabapentin 400 to 800mg prior to bedtime. No side effects. 4. Chronic insomnia - ICD9: 780.52, ICD10: F51.04 Stable so long as taking medications. Will continue Trazodone 25mg nightly in addition to gabapentin. Note that psychiatry also following and ok with Trazodone. 5. Class 3 severe obesity with body mass index (BMI) of 40.0 to 44.9 in adult, unspecified obesity type, unspecified whether serious comorbidity present (HCC) - ICD9: 278.01, V85.41, ICD10: E66.01, Z68.41 Contributing factor for NELI. Encouraged weight loss. D/w pt bariatric evaluation but declines at this time. 6. Spinal stenosis of lumbar region, unspecified whether neurogenic claudication present - ICD9: 724.02, ICD10: M48.061 Pt with severe L spine stenosis on MRI with complaint of LLE going out or numb. Non focal exam at this time. Will update Dr. Kimmie Bahena who is following pt from spine. PAP data download from 12/22/23 to 03/20/24: 90/90 days used for avg of 9 hours and 42 minutes. Set at 17/13 cmH2O. 95% leak 2.4 LPM. AHI 2.4. Patient with no complaints regarding CPAP. States once asleep she is asleep. Taking gabapentin 800mg at bedtime. Feels RLS controlled. Falling asleep in <30 minutes. Increase in 10 pounds since last visit. 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 Also feels arthritis is worse - treating with Tylenol. Not getting out of the house. Pt not getting much exercise. Reports energy levels good in AM but downhill from there. Waking to start the day about 8AM, with energy levels starting to drop off about 3PM. Bedtime between 10-11PM. No naps. No falling asleep driving. D.w pt again bariatric medicine program - states not wanting meds, but frustrated with weight situation - feels it is impacting pain in knees and energy levels. TSH, B12 and Vit D levels all WNL - however Vit D low normal (on B12 and D supplements). A1c is up. 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 REVIEW OF SYSTEMS GENERAL:No weight loss, malaise or fevers. HEENT:Negative for frequent or significant headaches, No changes in hearing or vision, no nose bleeds or other nasal problems NECK:Negative for lumps, goiter, pain and significant neck swelling RESPIRATORY: Negative for cough, wheezing or shortness of breath. CARDIOVASCULAR: Negative for chest pain, leg swelling or palpitations. GASTROINTESTINAL: Negative for abdominal discomfort, blood in stools or black stools or change in bowel habits GENITOURINARY: No history of dysuria, frequency or incontinence MUSCULOSKELETAL: Negative for joint pain or swelling, back pain or muscle pain. NEUROLOGIC:Negative for focal numbness or weakness, headaches and dizziness or syncope, vision changes, speech/languag changes - EXCEPT that as per HPI above. SKIN:Negative for lesions, rash, and itching. PSYCHIATRIC: See HPI. LAB/IMAGING: Those performed since patient's last visit have been reviewed. WBC (k/uL) Date Value 06/10/2024 5.81 RBC (m/uL) Date Value 06/10/2024 4.42 Hemoglobin (g/dL) Date Value 06/10/2024 13.8 Hematocrit (%) Date Value 06/10/2024 41.9 MCV (fL) Date Value 06/10/2024 94.8 MCH (pg) Date Value 06/10/2024 31.2 MCHC (g/dL) Date Value 06/10/2024 32.9 RDW-CV (%) Date Value 06/10/2024 12.8 Platelet Count (k/uL) Date Value 06/10/2024 313 MPV (fL) Date Value 06/10/2024 9.0 Glucose (mg/dL) Date Value 06/10/2024 131 (H) BUN (mg/dL) Date Value 06/10/2024 15 Creatinine (mg/dL) Date Value 06/10/2024 0.65 Sodium (mmol/L) Date Value 06/10/2024 136 Potassium (mmol/L) Date Value 06/10/2024 3.9 Chloride (mmol/L) Date Value 06/10/2024 98 CO2 (mmol/L) Date Value 06/10/2024 26 Protein, Total (g/dL) Date Value 06/10/2024 7.2 Albumin (g/dL) Date Value 06/10/2024 4.3 Calcium, Total (mg/dL) Date Value 06/10/2024 9.8 Alkaline Phosphatase (U/L) Date Value 06/10/2024 90 Bilirubin, Total (mg/dL) Date Value 06/10/2024 0.5 AST (U/L) Date Value 06/10/2024 23 ALT (U/L) Date Value 06/10/2024 21 KELTON (no units) Date Value 08/21/2014 Positive (A) Rheumatoid Factor (IU/mL) Date Value 06/10/2024 26 (H) Hep B Surface Ab Quant (mIU/mL) Date Value 11/15/2023 <8.00 Hep C Antibody IA (no units) Date Value 11/15/2023 Negative MEDICATIONS: acetaminophen (TYLENOL ARTHRITIS PAIN) 650 mg CR tablet Take 1,300 mg by mouth once daily. levothyroxine (SYNTHROID) 25 mcg tablet Take 1 tablet by mouth once daily. gabapentin (NEURONTIN) 400 mg capsule Take 2 capsule 60-90 minutes before bedtime. rosuvastatin (CRESTOR) 5 mg tablet Take 1 tablet by mouth every Saturday, Saturday, and Saturday. hydroCHLOROthiazide 25 mg tablet Take 1 tablet by mouth every afternoon. acetaminophen (TYLENOL EXTRA STRENGTH) 500 mg tablet Take 1,000 mg by mouth every 8 hours as needed for pain. colestipol (COLESTID) 1 gram tablet Take 1-2 tablets by mouth once daily. As directed diclofenac (VOLTAREN ARTHRITIS PAIN) 1 % topical gel Apply 2 g to affected area four times daily as needed (wrist pain). BIPAP losartan (COZAAR) 100 mg tablet Take 100 mg by mouth once daily. aspirin 81 mg chewable tablet Take 81 mg by mouth once daily. ubidecarenone Q-10 (COENZYME Q-10) 10 mg cap Take 100 mg by mouth two times a day. hyperimmune colostrum, bovine 200 mg tab Take 2 tablets by mouth twice daily. Ca/D3/mag ox/zinc/commercial helicopter pilot/jose/bor (CALCIUM 600-D3 PLUS, MAG-ZINC, ORAL) turmeric/turmeric ext/pepr ext (TURMERIC-TURMERIC EXT-PEPPER) 900-100-5 mg cap CPAP Bipap 17/13 cm H2O, Heat Humidity, suitable mask, [employer] supplies, opt Chinstrap, G47.33. cholecalciferol (VITAMIN D3) 2,000 unit tablet Take 2,000 Units by mouth once daily. FLUoxetine HCl (PROZAC) 40 mg capsule Take 1 capsule by mouth once daily. (Dr. Garcia) CYANOCOBALAMIN, VITAMIN B-12, (VITAMIN B-12 ORAL) Take by mouth. buPROPion XL (WELLBUTRIN XL) 150 mg 24 hr tablet Take one(1) tablet daily. Biotin (NAIL-EX) 2,500 mcg ORAL Tab Take 1,000 mcg by mouth once daily. DAILY VITAMIN TAB Take one(1) tablet daily. acetaminophen (TYLENOL 8 HOUR ORAL) Take by mouth. (Patient not taking: Reported on 06/15/2024) HISTORIES PAST MEDICAL HISTORY Diagnosis Date Abnormal mammogram, unspecified 06/27/2006 Acquired hypothyroidism 07/04/2017 CAD (coronary artery disease) CAD (coronary artery disease) 07/25/2022 Calculus of gallbladder with chronic cholecystitis without obstruction 08/01/2015 Corns and callosities 01/24/2014 Diarrhea Dysphagia 05/27/2015 feeling like food sits in bottom of esophagus if eats heavier than usual meal Dysthymic disorder Depression (non-psychotic) Elevated antinuclear antibody (KELTON) level 08/25/2014 Essential hypertension HTN (hypertension) 07/25/2022 Internal hemorrhoids without mention of complication Left wrist sprain 07/2022 Myalgia and myositis, unspecified FIBROMYALGIA Obesity, unspecified Obesity Obstructive sleep apnea [facility] Osteoarthritis of multiple joints PAIN LEG (Right) 02/20/2005 Temporomandibular joint disorders, unspecified 11/23/2006 FAMILY HISTORY Problem Relation Age of Onset Diabetes Mother late in life at 75 Stroke Mother x3 Cancer Father myeloma (from immunesuppressants) at age 80 of chf and perf. bowel other (ESRD) Father had sudden renal failure; had kidney transplant at 68yo Thyroid Brother Hypertension Son No Known Problems Son Anesthesia Problems No Family History Blood Clots No Family History Clotting Disorder No Family History SOCIAL HISTORY Social History Tobacco Use Smoking status: Never Smokeless tobacco: Never Vaping Use Vaping status: Never Used Substance Use Topics Alcohol use: Yes Alcohol/week: 18.0 standard drinks of alcohol Types: 18 Glasses of wine per week Comment: wine with supper Drug use: No PHYSICAL EXAMINATION Wt 122 kg (269 lb) BMI 44.76 kg/m GENERAL EXAM: General appearance: NAD, pleasant. HEENT: NC/AT, nasal congestion absent, no oral lesions, membranes moist. NECK: ROM nml. Lungs: CTA bilaterally. CV: RRR nl S1, S2 Skin: Cool to touch. NEUROLOGICAL EXAM: General: Awake, alert, oriented x3 (person,place,time), fluent, no dysarthria; comprehension, naming, repetition intact. CN: PERRL, EOMI and without nystagmus, VFF to confrontation, facial sensation and strength are normal and symmetric, hearing is intact to finger rub bilaterally, palate and tongue movements are intact and symmetric. SCM and trapezius strength normal. Motor: Normal tone, bulk and strength (5/5) bilaterally (throughout extremities x4). Coordination: FNF, NINA, HTS intact. No tremors. Sensation: LT, vibration, temperature intact throughout. No evidence of neglect. Gait: Stable with normal stride and arm swing. Assessment and Plan: ASSESSMENT/PLAN: 1. NELI on CPAP - ICD9: 327.23, ICD10: G47.33 (primary diagnosis) Stable. No new issues with PAP. Tolerating. Cleaning and replacing equipment regularly. Compliance confirmed as above. Perceived benefit with pt sleeping through night and finding sleep to be restorative. Encouraged continued compliance. Advised pt not to drive or operate heavy machinery if sleepy. 2. Class 3 severe obesity with body mass index (BMI) of 40.0 to 44.9 in adult, unspecified obesity type, unspecified whether serious comorbidity present (HCC) - ICD9: 278.01, V85.41, ICD10: E66.813, E66.01, Z68.41 Increase in weight since last visit. Concern is that weight gain is contributing to fatigue and being tired in late afternoon and likely pain associated with known fibromyalgia and arthritis. Pt interested in weight loss but without meds or surgery. Will refer for nutritional/dietary recs. - CONSULT TO [facility] 3. RLS (restless legs syndrome) - ICD9: 333.94, ICD10: G25.81 Stable on gabapentin 800mg nightly. Refills provided. 4. Chronic insomnia - ICD9: 780.52, ICD10: F51.04 Stable on gabapentin 800mg nightly. Refills provided. 5. Fibromyalgia - ICD9: 729.1, ICD10: M79.7 Stable on gabapentin 800mg nightly. Refills provided. Encouraged weight loss as above. 6. Malaise and fatigue - ICD9: 780.79, ICD10: R53.81, R53.83 Encouraged weight loss as above. Note pt endorsing fatigue > sleepiness with ESS <8. Suspect due to other meds, polypharmacy and obesity. Sahara Boateng MD Medical Decision Making: Problems: Moderate: 2+ stable chronic illnesses Data: Unique test result(s) reviewed: 1 Risk: Moderate: Drug management Medical Decision Making Level: 4 - Moderate I spent a total of 30 minutes on the date of the service which included preparing to see the patient, [id number] patient care, completing clinical documentation, obtaining and/or reviewing separately obtained history, performing a medically appropriate examination, counseling and educating the patient/family/caregiver, ordering medications, tests, or procedures, and communicating results to the patient/family/caregiver. PDMP website checked and validated. All prescriptions have been APPROPRIATELY filled. No suspicious activity was identified. 06/26/2024 by Sahara Boateng MD documented in this encounter [facility] 06-26-2024 Note HNO ID: [id number] Author: ANGELLA HERNANDEZ LPN Service: ? Author Type: LICENSED NURSE Type: Progress Notes Filed: 06/26/2024 12:16 Note Text: [facility] 06-15-2024 Instructions Emilee Condon MD - 06/15/2024 10:36 AM EST - Continue taking Tylenol 650 mg, two tablets in the morning as needed for arthritis pain. This dosage is safe as it is an 8-hour sustained release formulation. - Review the information on sulfasalazine sent by your machine feeder floorperson on March 25. You can find it in your [employer] messages. Discuss any concerns or questions about this medication with your machine feeder floorperson at your upcoming appointment on July 07. - Maintain your current dosage of rosuvastatin (Crestor) as prescribed: Saturday, Saturday, and Saturday. - Monitor your blood sugar levels regularly. Your recent hemoglobin A1c was 5.8%, which is slightly above the normal range of 5.6%. Aim to reduce your A1c through dietary changes and regular exercise. - Incorporate aerobic exercise into your routine, such as 30 minutes of walking, swimming, or biking, five days a week, as tolerated. - Follow a balanced diet with a focus on protein and vegetables. Limit intake of processed carbohydrates such as bread, pasta, rice, sweets, and potatoes. - Schedule an appointment with your escrow assistant, Dr. Talavera, to discuss the need for a follow-up thyroid ultrasound. - Wear mild compression stockings to help reduce leg swelling. Consider brands like Dr. Cherie Yus, copper socks, or diabetic socks. - Elevate your legs when sitting or lying down to help reduce swelling. - Stay hydrated by drinking plenty of water throughout the day. - Schedule a mammogram after November 15, as your last one was on November 14. - Follow up with your corrugator operator, Dr. Coffman, in August to address any concerns about shortness of breath and to discuss the need for further cardiac evaluation. - Next follow-up appointment in 6 months. documented in this encounter [facility] 06-15-2024 Note [facility] 06-15-2024 History of Present illness Narrative This note was created using [employer]. Subjective Priscilla Ramos is a 69 year old female. Patient presents with: F/U 6 months: discuss lab results complaints of fatigue all the time SUBJECTIVE: Priscilla Ramos is a 69 year old year old lady here today for 6 month follow up appointment for review of medical conditions. Priscilla Ramos is a 69-year-old female with a history of RA, spinal stenosis, and sleep apnea, presenting for a 6-month follow-up. Priscilla reports increased fatigue and dyspnea on exertion, particularly when ascending stairs. She also notes worsening arthritic pain, especially in her hands, and has been taking 650 mg of Tylenol Extended Release, two tablets in the morning, for pain management. She inquires if this dosage is appropriate. She mentions a recent RA factor test that returned elevated results and seeks advice on whether to start sulfasalazine, as recommended by her machine feeder floorperson. She expresses concerns about potential side effects and plans to discuss this further with her machine feeder floorperson in June. She reports increased pain since March, particularly during the Jeremie season. She received a spinal injection, which has reduced episodes of left leg numbness but has not alleviated pain. 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 She uses a heating pad for relief and notes that the swelling improves by morning. She denies persistent wheezing but occasionally experiences it. She has a history of sleep apnea and is scheduled for a follow-up with her sleep specialist. She also has a cardiology appointment in August and mentions a previous pulmonary function test in March, which showed no large airway obstruction and a slightly decreased lung capacity. She expresses concern about recent lab results, including an elevated fasting glucose level of 131 mg/dL, up from 111 mg/dL last year. She is worried about the possibility of diabetes and inquires about dietary and exercise recommendations. She also mentions a recent weight gain from 255 lbs in March 2023 to 270 lbs. She has a history of thyroid nodules and is due for a follow-up ultrasound. She also reports a couple of UTIs and has been taking cranberry extract as a preventive measure. She received a COVID-19 vaccine last week and inquires about the frequency of RSV vaccinations. She has advance directives in place, with her two sons designated as healthcare proxies. Has HCDPOA; can drop off copy. Surrogate decision makers 2 sons. PAST MEDICAL HISTORY Diagnosis Date Abnormal mammogram, unspecified 06/27/2006 Acquired hypothyroidism 07/04/2017 CAD (coronary artery disease) CAD (coronary artery disease) 07/25/2022 Calculus of gallbladder with chronic cholecystitis without obstruction 08/01/2015 Corns and callosities 01/24/2014 Diarrhea Dysphagia 05/27/2015 feeling like food sits in bottom of esophagus if eats heavier than usual meal Dysthymic disorder Depression (non-psychotic) Elevated antinuclear antibody (KELTON) level 08/25/2014 Essential hypertension HTN (hypertension) 07/25/2022 Internal hemorrhoids without mention of complication Left wrist sprain 07/2022 Myalgia and myositis, unspecified FIBROMYALGIA Obesity, unspecified Obesity Obstructive sleep apnea D[facility] Osteoarthritis of multiple joints PAIN LEG (Right) 02/20/2005 Temporomandibular joint disorders, unspecified 11/23/2006 Current Outpatient Medications Medication Sig acetaminophen (TYLENOL ARTHRITIS PAIN) 650 mg CR tablet Take 1,300 mg by mouth once daily. levothyroxine (SYNTHROID) 25 mcg tablet Take 1 tablet by mouth once daily. traZODone (DESYREL) 50 mg tablet Take 0.5 tablets by mouth daily at bedtime. rosuvastatin (CRESTOR) 5 mg tablet Take 1 tablet by mouth every Saturday, Saturday, and Saturday. hydroCHLOROthiazide 25 mg tablet Take 1 tablet by mouth every afternoon. acetaminophen (TYLENOL EXTRA STRENGTH) 500 mg tablet Take 1,000 mg by mouth every 8 hours as needed for pain. colestipol (COLESTID) 1 gram tablet Take 1-2 tablets by mouth once daily. As directed diclofenac (VOLTAREN ARTHRITIS PAIN) 1 % topical gel Apply 2 g to affected area four times daily as needed (wrist pain). losartan (COZAAR) 100 mg tablet Take 100 mg by mouth once daily. aspirin 81 mg chewable tablet Take 81 mg by mouth once daily. ubidecarenone Q-10 (COENZYME Q-10) 10 mg cap Take 100 mg by mouth two times a day. hyperimmune colostrum, bovine 200 mg tab Take 2 tablets by mouth twice daily. Ca/D3/mag ox/zinc/commercial helicopter pilot/jose/bor (CALCIUM 600-D3 PLUS, MAG-ZINC, ORAL) turmeric/turmeric ext/pepr ext (TURMERIC-TURMERIC EXT-PEPPER) 900-100-5 mg cap cholecalciferol (VITAMIN D3) 2,000 unit tablet Take 2,000 Units by mouth once daily. FLUoxetine HCl (PROZAC) 40 mg capsule Take 1 capsule by mouth once daily. (Dr. Garcia) CYANOCOBALAMIN, VITAMIN B-12, (VITAMIN B-12 ORAL) Take by mouth. buPROPion XL (WELLBUTRIN XL) 150 mg 24 hr tablet Take one(1) tablet daily. Biotin (NAIL-EX) 2,500 mcg ORAL Tab Take 1,000 mcg by mouth once daily. DAILY VITAMIN TAB Take one(1) tablet daily. gabapentin (NEURONTIN) 400 mg capsule Take 2 capsule 60-90 minutes before bedtime. acetaminophen (TYLENOL 8 HOUR ORAL) Take by mouth. (Patient not taking: Reported on 06/15/2024) BIPAP CPAP Bipap 17/13 cm H2O, Heat Humidity, suitable mask, [employer] supplies, opt Chinstrap, G47.33. No current facility-administered medications for this visit. Review of Systems Objective BP 128/78 Pulse 91 Wt 122.7 kg (270 lb 8.1 oz) SpO2 98% BMI 45.01 kg/m Last 5 Encounter Wt Readings: Date: Wt: 06/15/2024 122.7 kg (270 lb 8.1 oz) 03/31/2024 122.2 kg (269 lb 6.4 oz) 02/21/2024 118.5 kg (261 lb 3.9 oz) 01/30/2024 119.7 kg (263 lb 14.3 oz) 01/17/2024 119.7 kg (264 lb) No waist measurement recorded Estimated body mass index is 45.01 kg/m as calculated from the following: Height as of 01/17/24: 165.1 cm (5' 5). Weight as of this encounter: 122.7 kg (270 lb 8.1 oz). Last 5 Encounter BP Readings: Date: BP: 06/15/2024 128/78 03/31/2024 126/72 02/25/2024 129/78 02/21/2024 133/77 01/30/2024 137/62 Physical Exam Vitals reviewed. Constitutional: Appearance: Normal appearance. She is well-developed. She is obese. HENT: Head: Normocephalic and atraumatic. Right Ear: External ear normal. Left Ear: External ear normal. Nose: Nose normal. Eyes: Conjunctiva/sclera: Conjunctivae normal. Neck: Thyroid: No thyromegaly. Cardiovascular: Rate and Rhythm: Normal rate and regular rhythm. Pulses: Normal pulses. Heart sounds: Normal heart sounds. No murmur heard. No friction rub. No gallop. Pulmonary: Effort: Pulmonary effort is normal. Breath sounds: Normal breath sounds. Abdominal: General: Bowel sounds are normal. There is no distension. Palpations: Abdomen is soft. There is no mass. Tenderness: There is no abdominal tenderness. Musculoskeletal: General: No deformity. Normal range of motion. Right lower le+ Pitting Edema present. Left lower le+ Pitting Edema present. Lymphadenopathy: Cervical: No cervical adenopathy. Skin: General: Skin is warm and dry. Coloration: Skin is not jaundiced or pale. Findings: No rash. Neurological: General: No focal deficit present. Mental Status: She is alert and oriented to person, place, and time. Cranial Nerves: No cranial nerve deficit. Sensory: No sensory deficit. Motor: No abnormal muscle tone. Coordination: Coordination normal. Deep Tendon Reflexes: Reflexes normal. Psychiatric: Mood and Affect: Mood normal. Behavior: Behavior normal. Thought Content: Thought content normal. Judgment: Judgment normal. Latest Ref Rng 07/11/2023 11/15/2023 03/23/2024 06/10/2024 Protein, Total 6.3 - 8.0 g/dL 7.1 7.2 Albumin 3.9 - 4.9 g/dL 4.4 4.3 Calcium 8.5 - 10.2 mg/dL 9.9 9.8 Bilirubin, Total 0.2 - 1.3 mg/dL 0.4 0.5 Alkaline Phosphatase 34 - 123 U/L 89 90 AST 13 - 35 U/L 20 23 ALT 7 - 38 U/L 21 21 Glucose 74 - 99 mg/dL 111 (H) 131 (H) BUN 7 - 21 mg/dL 21 15 Creatinine 0.58 - 0.96 mg/dL 0.66 0.65 Sodium 136 - 144 mmol/L 135 (L) 136 Potassium 3.7 - 5.1 mmol/L 4.3 3.9 Chloride 98 - 107 mmol/L 99 98 CO2 22 - 30 mmol/L 27 26 Anion Gap 8 - 15 mmol/L 9 12 eGFR >=60 mL/min/1.73m 95 95 WBC 3.70 - 11.00 k/uL 4.96 5.81 RBC 3.90 - 5.20 m/uL 4.69 4.42 Hemoglobin 11.5 - 15.5 g/dL 14.3 13.8 Hematocrit 36.0 - 46.0 % 42.6 41.9 MCV 80.0 - 100.0 fL 90.8 94.8 MCH 26.0 - 34.0 pg 30.5 31.2 MCHC 30.5 - 36.0 g/dL 33.6 32.9 RDW-CV 11.5 - 15.0 % 12.9 12.8 Platelet Count 150 - 400 k/uL 331 313 MPV 9.0 - 12.7 fL 9.2 9.0 Absolute nRBC <0.01 k/uL <0.01 <0.01 Cholesterol, Total <200 mg/dL 186 198 Triglyceride <150 mg/dL 96 114 HDL Cholesterol >39 mg/dL 66 75 Non HDL Cholesterol <130 mg/dL 120 123 Fasting Time hrs 11 12 VLDL Cholesterol <30 mg/dL 19 23 TC:HDL Ratio <5.10 2.82 2.64 LDL Cholesterol <100 mg/dL 101 (H) 100 (H) LDL:HDL Ratio <2.54 1.53 1.33 CCP Antibody IgG Qualitative Negative Negative CCP Antibody, IgG <20 Units <15 Hep B Surface Ab, Qual Negative Hep B Surf Ab Quant mIU/mL <8.00 THYROID PEROXIDASE ANTIBODY <5.6 IU/mL 9.4 (H) Thyroglobulin, LC-MS/MS 1.3 - 31.8 ng/mL 20.7 Magnesium 1.7 - 2.3 mg/dL 1.9 Vitamin D 25 Hydroxy 31.0 - 80.0 ng/mL 41.5 36.4 TSH 0.270 - 4.200 mIU/L 0.990 0.959 Free T4 0.9 - 1.7 ng/dL 1.3 1.5 WSR 0 - 20 mm/hr 15 CRP <0.9 mg/dL <0.3 Rheumatoid Factor <16 IU/mL 26 (H) 26 (H) G-6-PD Quantitative 9.8 - 15.5 U/g Hb 13.0 Hep C Antibody IA Negative Negative Hep B Surface Ag Negative Negative Hep B Core Ab, Total Negative Negative Free T3 2.3 - 4.1 pg/mL 3.0 Legend: (H) High (L) Low Hemoglobin A1C (%) Date Value 09/09/2021 5.4 12/24/2018 5.4 08/09/2018 5.3 12/25/2017 5.5 06/14/2017 5.5 08/21/2014 5.9 Assessment and Plan # IFG (impaired fasting glucose) (R73.01) - Recent fasting glucose level at 131 mg/dL, indicating diabetes range ( greater than or equal to126 mg/dL). - Hemoglobin A1c measured at 5.8%, slightly above normal ( less than or equal to5.6%); diabetes range is greater than or equal to6.5%. - Discussed dietary modifications focusing on reducing carbohydrate intake and increasing protein and vegetable consumption. - Recommended aerobic exercise, such as 30 minutes of walking, five days a week, to help lower A1c levels. - Ordered repeat A1c test in 5 months to monitor glucose control. # Rheumatoid arthritis involving multiple sites with positive rheumatoid factor (HCC) (M05.79) - Rheumatoid factor remains elevated at 26 IU/mL. - Discussed the importance of controlling inflammation to prevent joint deformity and systemic complications. - Patient hesitant about starting sulfasalazine due to potential side effects; provided printed information on the medication (MyChart message from [facility] that patient was not able to find to review again). - Advised patient to discuss alternative treatment options with machine feeder floorperson Dr. Alfredo during the upcoming appointment on July 07. - Continue current analgesic regimen of acetaminophen 650 mg extended-release, two tablets every 8 hours as needed for pain. # Primary hypertension (I10) - Blood pressure readings within acceptable range; continue current antihypertensive management. - Monitor blood pressure regularly. # Acquired hypothyroidism (E03.9) - Stable on current levothyroxine therapy. - Patient to schedule follow-up appointment with escrow assistant Dr. Talavera to discuss the need for a repeat thyroid ultrasound. # Spinal stenosis of lumbar region with neurogenic claudication (M48.062) - Recent spinal injection has reduced episodes of left leg numbness. - Continue monitoring symptoms; follow-up as needed. # GARCIA (dyspnea on exertion) (R06.09) # Other fatigue (R53.83) - Shortness of breath and fatigue may be multifactorial, including contributions from rheumatoid arthritis and potential cardiac issues. - Recent pulmonary function tests show no large airway obstruction; FEV1 at 77% predicted. - Scheduled follow-up with cardiology ([facility]) in August with NORMA Coffman to evaluate cardiac function and consider further testing such as echocardiogram. - Follow-up with Dr. Boateng for sleep apnea management. # Encounter for screening mammogram for breast cancer (Z12.31) - Ordered 3D mammogram to be performed on or after November 15. - Patient advised to confirm coverage with insurance. # Encounter for immunization (Z23) - Received COVID-19 vaccine on May 03. - Discussed RSV vaccine; advised that current recommendations suggest administration every 2-3 years. # Class 3 severe obesity due to excess calories with body mass index (BMI) of 45.0 to 49.9 in adult, unspecified whether serious comorbidity present (HCC) (E66.813) - Current weight at 270 lbs, BMI within the range of 45.0 to 49.9. - Discussed the impact of obesity on overall health, including potential contributions to dyspnea and glucose intolerance. - Encouraged dietary modifications and regular exercise to promote weight loss and improve metabolic parameters. I spent a total of 48 minutes on the date of the service which included [id number] patient care, completing clinical documentation, obtaining and/or reviewing separately obtained history, performing a medically appropriate examination, counseling and educating the patient/family/caregiver, ordering medications, tests, or procedures, independently interpreting results (not separately reported), and communicating results to the patient/family/caregiver. Emilee Condon MD documented in this encounter [facility] 06-08-2024 Telephone encounter Note See MyChart reply [facility] 06-08-2024 Miscellaneous Notes See MyChart reply documented in this encounter [facility] 05-24-2024 Telephone encounter Note See MyChart reply [facility] 05-24-2024 Miscellaneous Notes See MyChart reply documented in this encounter [facility] 05-18-2024 Telephone encounter Note Prescription Refill Information The patient has been identified by name and date of : Yes Caregiver verified no other encounters exist for this prescription request: Yes Caregiver confirmed with patient/requestor that no other refills are due, in the near future, with this provider at this time: Yes The last office visit in the department: 02/21/24 Does the patient have a future office visit with this provider/department: Yes 06/15/24 Requested Prescriptions Pending Prescriptions Disp Refills levothyroxine (SYNTHROID) 25 mcg tablet 90 tablet 3 Sig: Take 1 tablet by mouth once daily. Roxana Mariano LPN May 18, 2024 11:[address] [facility] 05-18-2024 Miscellaneous Notes Prescription Refill Information The patient has been identified by name and date of : Yes Caregiver verified no other encounters exist for this prescription request: Yes Caregiver confirmed with patient/requestor that no other refills are due, in the near future, with this provider at this time: Yes The last office visit in the department: 02/21/24 Does the patient have a future office visit with this provider/department: Yes 06/15/24 Requested Prescriptions Pending Prescriptions Disp Refills levothyroxine (SYNTHROID) 25 mcg tablet 90 tablet 3 Sig: Take 1 tablet by mouth once daily. Roxana Mariano LPN May 18, 2024 11:07 AM documented in this encounter [facility] 04-10-2024 Telephone encounter Note The following approved medication requests have been transmitted electronically. Requested Prescriptions Signed Prescriptions Disp Refills nitrofurantoin monohydrate and macrocrystal (MACROBID) 100 mg capsule 14 capsule 0 Sig: Take 1 capsule by mouth two times a day for 7 days. Emilee Condon MD [facility] 04-10-2024 Miscellaneous Notes The following approved medication requests have been transmitted electronically. Requested Prescriptions Signed Prescriptions Disp Refills nitrofurantoin monohydrate and macrocrystal (MACROBID) 100 mg capsule 14 capsule 0 Sig: Take 1 capsule by mouth two times a day for 7 days. Emilee Condon MD Patient calls and is asking if Dr. Condon advised on message yet. Renata West RN Pt asking if pcp can advise on UTI s/s: pressure urgency, after completing nitrofurantoin 100 mg bid for 5 days. Asking if she should have another urine test, or another AB? Bacteria in urine test was e-coli. Please phone pt with reply. [phone] documented in this encounter [facility] 04-10-2024 Telephone encounter Note Patient calls and is asking if Dr. Condon advised on message yet. Renata West RN [facility] 04-09-2024 Telephone encounter Note Pt asking if pcp can advise on UTI s/s: pressure urgency, after completing nitrofurantoin 100 mg bid for 5 days. Asking if she should have another urine test, or another AB? Bacteria in urine test was e-coli. Please phone pt with reply. [phone] [facility] 03-31-2024 Note [facility] 03-31-2024 History of Present illness Narrative This note was created using Cheezburger. Subjective Priscilla Ramos is a 69 year old female. HPI Patient presents with a chief complaint of dysuria and frequency. She states started over the past day. No back pain or abdominal pain. No fever or vomiting. No chills. She did have a UTI the beginning of February. Symptoms from that did go away completely. She denies vaginal symptoms. No hematuria. Review of Systems Constitutional: Negative. HENT: Negative. Respiratory: Negative. Cardiovascular: Negative. Gastrointestinal: Negative. Genitourinary: Positive for dysuria, frequency and urgency. Negative for hematuria and pelvic pain. Musculoskeletal: Negative. All other systems reviewed and are negative. PAST MEDICAL HISTORY Diagnosis Date Abnormal mammogram, unspecified 06/27/2006 Acquired hypothyroidism 07/04/2017 CAD (coronary artery disease) CAD (coronary artery disease) 07/25/2022 Calculus of gallbladder with chronic cholecystitis without obstruction 08/01/2015 Corns and callosities 01/24/2014 Diarrhea Dysphagia 05/27/2015 feeling like food sits in bottom of esophagus if eats heavier than usual meal Dysthymic disorder Depression (non-psychotic) Elevated antinuclear antibody (KELTON) level 08/25/2014 Essential hypertension HTN (hypertension) 07/25/2022 Internal hemorrhoids without mention of complication Left wrist sprain 07/2022 Myalgia and myositis, unspecified FIBROMYALGIA Obesity, unspecified Obesity Obstructive sleep apnea D[facility] Osteoarthritis of multiple joints PAIN LEG (Right) 02/20/2005 Temporomandibular joint disorders, unspecified 11/23/2006 Current Outpatient Medications Medication Sig Dispense Refill traZODone (DESYREL) 50 mg tablet Take 0.5 tablets by mouth daily at bedtime. 45 tablet 1 rosuvastatin (CRESTOR) 5 mg tablet Take 1 tablet by mouth every Saturday, Saturday, and Saturday. 90 tablet 1 hydroCHLOROthiazide 25 mg tablet Take 1 tablet by mouth every afternoon. levothyroxine (SYNTHROID) 25 mcg tablet Take 1 tablet by mouth once daily. 90 tablet 3 acetaminophen (TYLENOL EXTRA STRENGTH) 500 mg tablet Take 1,000 mg by mouth every 8 hours as needed for pain. colestipol (COLESTID) 1 gram tablet Take 1-2 tablets by mouth once daily. As directed 60 tablet 2 diclofenac (VOLTAREN ARTHRITIS PAIN) 1 % topical gel Apply 2 g to affected area four times daily as needed (wrist pain). 100 g 0 acetaminophen (TYLENOL 8 HOUR ORAL) Take by mouth. BIPAP losartan (COZAAR) 100 mg tablet Take 100 mg by mouth once daily. aspirin 81 mg chewable tablet Take 81 mg by mouth once daily. ubidecarenone Q-10 (COENZYME Q-10) 10 mg cap Take 100 mg by mouth two times a day. hyperimmune colostrum, bovine 200 mg tab Take 2 tablets by mouth twice daily. (Patient taking differently: Take 200 mg by mouth two times a day.) Ca/D3/mag ox/zinc/commercial helicopter pilot/jose/bor (CALCIUM 600-D3 PLUS, MAG-ZINC, ORAL) turmeric/turmeric ext/pepr ext (TURMERIC-TURMERIC EXT-PEPPER) 900-100-5 mg cap CPAP Bipap 17/13 cm H2O, Heat Humidity, suitable mask, Lif[employer] supplies, opt Chinstrap, G47.33. 1 Device 0 cholecalciferol (VITAMIN D3) 2,000 unit tablet Take 2,000 Units by mouth once daily. FLUoxetine HCl (PROZAC) 40 mg capsule Take 1 capsule by mouth once daily. (Dr. Garcia) CYANOCOBALAMIN, VITAMIN B-12, (VITAMIN B-12 ORAL) Take by mouth. buPROPion XL (WELLBUTRIN XL) 150 mg 24 hr tablet Take one(1) tablet daily. 0 Biotin (NAIL-EX) 2,500 mcg ORAL Tab Take 1,000 mcg by mouth once daily. 0 DAILY VITAMIN TAB Take one(1) tablet daily. 0 nitrofurantoin monohydrate and macrocrystal (MACROBID) 100 mg capsule Take 1 capsule by mouth two times a day with meals for 5 days. 10 capsule 0 gabapentin (NEURONTIN) 400 mg capsule Take 2 capsule 60-90 minutes before bedtime. 180 capsule 1 No current facility-administered medications for this visit. PAST SURGICAL HISTORY Procedure Laterality Date ARTHRP KNE CONDYLE&PLATU MEDIAL&LAT COMPARTMENTS 09/2011 right DELIVERY ONLY , low cervical DELIVERY ONLY , low cervical COLONOSCOPY 08/01/2022 repeat in 5 years COLONOSCOPY FLX DX W/COLLJ SPEC WHEN PFRMD 07/29/2017 Colonoscopy COLONOSCOPY W/BIOPSY SINGLE/MULTIPLE 02/10/2007 LAPS SURG CHOLECYSTECTOMY W/CHOLANGIOGRAPHY 08/17/2015 LEFT HEART CATH,PERCUTANEOUS PAST SURGICAL HISTORY OF foot-left PAST SURGICAL HISTORY OF left foot - no hardware STEREOTACTIC CORE BIOPSY 07/04/2006 UOQ RIGHT AVANI W/WO REMOVAL TUBE OVARY 1999 Hysterectomy, AVANI ovaries remain FAMILY HISTORY Problem Relation Age of Onset Diabetes Mother late in life at 75 Stroke Mother x3 Cancer Father myeloma (from immunesuppressants) at age 80 of chf and perf. bowel other (ESRD) Father had sudden renal failure; had kidney transplant at 68yo Thyroid Brother Hypertension Son No Known Problems Son Anesthesia Problems No Family History Blood Clots No Family History Clotting Disorder No Family History Social History Tobacco Use Smoking status: Never Smokeless tobacco: Never Vaping Use Vaping status: Never Used Substance Use Topics Alcohol use: Yes Alcohol/week: 18.0 standard drinks of alcohol Types: 18 Glasses of wine per week Comment: wine with supper Drug use: No Objective BP 126/72 Pulse 86 Temp 36.7 C (98 F) Resp 16 Wt 122.2 kg (269 lb 6.4 oz) SpO2 98% BMI 44.83 kg/m Physical Exam Vitals reviewed. Constitutional: Appearance: Normal appearance. HENT: Head: Normocephalic and atraumatic. Cardiovascular: Rate and Rhythm: Normal rate and regular rhythm. Heart sounds: Normal heart sounds. Pulmonary: Effort: Pulmonary effort is normal. Breath sounds: Normal breath sounds. Abdominal: General: Abdomen is flat. Palpations: Abdomen is soft. Tenderness: There is no abdominal tenderness. There is no right CVA tenderness or left CVA tenderness. Musculoskeletal: Cervical back: Neck supple. Skin: General: Skin is warm and dry. Neurological: Mental Status: She is alert. Assessment and Plan ASSESSMENT/PLAN: 1. Acute UTI - ICD9: 599.0, ICD10: N39.0 acute - UA positive for jacqui esterase and hematuria - Send urine for culture - Begin treatment with Macrobid 100 mg BID for 5 days - previous kidney function reviewed and normal - UA DIP, URINE (POC) - URINE CULTURE Mar Williamson PA-C documented in this encounter [facility] 03-31-2024 Telephone encounter Note Patient reports she was recently treated for a UTI, and completed AB for this. Reports yesterday started having s/s again: urgency, pain with urination, frequency, dark urine, foul odor. No fever. Reports she is drinking plenty of water. Patient agreeable to same day appt. No openings in pcp triad, and no openings in intm. Patient agreeable to EC for evaluation. [facility] 03-31-2024 Miscellaneous Notes Patient reports she was recently treated for a UTI, and completed AB for this. Reports yesterday started having s/s again: urgency, pain with urination, frequency, dark urine, foul odor. No fever. Reports she is drinking plenty of water. Patient agreeable to same day appt. No openings in pcp triad, and no openings in intm. Patient agreeable to EC for evaluation. documented in this encounter [facility] 03-25-2024 History of Present illness Narrative Follow up for inflammatory arthritis. HPI: To review, Priscilla Ramos is a 69 year old female (goes by [employer]) - With longstanding fibromyalgia for several years, diagnosed sometime in the mid-to-late . - In , had a R TKA - Around , Dr. Byrd diagnosed with arthritis (unsure of a more specific diagnosis, unsure if osteo vs inflammatory). Had pain in the shoulders, neck and mid>low back at that time. Started on HCQ and tramadol. Unsure if either has helped with the pain which has progressed over time. Unsure if she was on oral steroids in past. - In , reported increased pain in the hands/fingers so advised to add MTX which she deferred. - In Nov, reported pain in the MCPs and PIPs. No pain in the wrists or DIPs. Eases with activity. Worse in morning. Advised to taper off tramadol - In Jan, reported 50% improvement in joint stiffness with HCQ - In September, reported concern about potential for easy sunburn and skin issues with HCQ. Was advised she could hold it for 2 weeks to see if any improvement in itchy scalp. - In Jan, reported that stopping HCQ helped with skin issues. No change in joint symptoms without HCQ. Referred to PT for shoulder pain which helped per May visit - In July, s/p fall resulting in L wrist fragility fx. Advised starting alendronate (vs reclast), she declined both - in 03/2023, reports L knee OA s/p CSI 1.5 months ago with relief, took 2 weeks to kick in. Doing PT for low back pain/LLE numbness, seeing spine. - Started statin and BP med in the past year, outside [facility] provider - To have a thyroid nodule biopsied 04/18/23 - Last plaquenil eye exam normal in September (off HCQ) PAST MEDICAL HISTORY Diagnosis Date Abnormal mammogram, unspecified 06/27/2006 Acquired hypothyroidism 07/04/2017 CAD (coronary artery disease) CAD (coronary artery disease) 07/25/2022 Calculus of gallbladder with chronic cholecystitis without obstruction 08/01/2015 Corns and callosities 01/24/2014 Diarrhea Dysphagia 05/27/2015 feeling like food sits in bottom of esophagus if eats heavier than usual meal Dysthymic disorder Depression (non-psychotic) Elevated antinuclear antibody (KELTON) level 08/25/2014 Essential hypertension HTN (hypertension) 07/25/2022 Internal hemorrhoids without mention of complication Left wrist sprain 07/2022 Myalgia and myositis, unspecified FIBROMYALGIA Obesity, unspecified Obesity Obstructive sleep apnea [facility] Osteoarthritis of multiple joints PAIN LEG (Right) 02/20/2005 Temporomandibular joint disorders, unspecified 11/23/2006 PAST SURGICAL HISTORY Procedure Laterality Date ARTHRP KNE CONDYLE&PLATU MEDIAL&LAT COMPARTMENTS 09/2011 right DELIVERY ONLY , low cervical DELIVERY ONLY , low cervical COLONOSCOPY 08/01/2022 repeat in 5 years COLONOSCOPY FLX DX W/COLLJ SPEC WHEN PFRMD 07/29/2017 Colonoscopy COLONOSCOPY W/BIOPSY SINGLE/MULTIPLE 02/10/2007 LAPS SURG CHOLECYSTECTOMY W/CHOLANGIOGRAPHY 08/17/2015 LEFT HEART CATH,PERCUTANEOUS PAST SURGICAL HISTORY OF foot-left PAST SURGICAL HISTORY OF left foot - no hardware STEREOTACTIC CORE BIOPSY 07/04/2006 UOQ RIGHT AVANI W/WO REMOVAL TUBE OVARY 2000 Hysterectomy, AVANI ovaries remain ALLERGIES No Known Allergies INTERVAL HISTORY This Team Access Model visit is a virtual encounter. It required patient-provider interaction for the medical decision making as documented below. I have communicated my name and active licensure. The patient's identity and physical location were verified at the time of this visit. Either the patient or their legal insurance account representative has been informed of the risks and benefits of -- and alternatives to -- treatment through a remote evaluation and consents to proceed with the evaluation remotely. I recommended SSZ after the TEX, but she wanted some time to think about it. She received a spine injection, which helped somewhat with lower extremity numbness. No fractures since the TEX. Sites of pain: low back, pain rated 3/10 Joint swelling: none EMS: yes, lasting 60 minutes or less Reports UTI in 01/2024, s/p antibiotics. Tolerating meds. Answers submitted by the patient for this visit: Review of Systems Rheumatology (Submitted on 03/25/2024) Fever : No Recent unintentional weight change: No Eye pain: No Eye redness: No Vision Disturbance: No Eye Dryness: No Nosebleeds: No Sores in your mouth: No Trouble Swallowing: No Dry Mouth: No Chest pain: No Leg Swelling: No A cough: No Shortness of breath: No Pain with breathing: No Heartburn: No Abdominal pain: No Diarrhea: No Black tarry stools: No Blood in urine: No Pain or burning with urination: No Joint pain or stiffness: Yes Muscle weakness: Yes Muscle aches: Yes Joint swelling: No Morning Stiffness in Joints: Yes A rash: No Skin Color Changes: No Hair Loss: No Nail Changes: No Headaches: No Numbness: Yes Memory Loss: No Swollen Glands: No Current Outpatient Medications Medication Sig traZODone (DESYREL) 50 mg tablet Take 0.5 tablets by mouth daily at bedtime. gabapentin (NEURONTIN) 400 mg capsule Take 2 capsule 60-90 minutes before bedtime. rosuvastatin (CRESTOR) 5 mg tablet Take 1 tablet by mouth every Saturday, Saturday, and Saturday. hydroCHLOROthiazide 25 mg tablet Take 1 tablet by mouth every afternoon. levothyroxine (SYNTHROID) 25 mcg tablet Take 1 tablet by mouth once daily. acetaminophen (TYLENOL EXTRA STRENGTH) 500 mg tablet Take 1,000 mg by mouth every 8 hours as needed for pain. colestipol (COLESTID) 1 gram tablet Take 1-2 tablets by mouth once daily. As directed diclofenac (VOLTAREN ARTHRITIS PAIN) 1 % topical gel Apply 2 g to affected area four times daily as needed (wrist pain). acetaminophen (TYLENOL 8 HOUR ORAL) Take by mouth. BIPAP losartan (COZAAR) 100 mg tablet Take 100 mg by mouth once daily. aspirin 81 mg chewable tablet Take 81 mg by mouth once daily. ubidecarenone Q-10 (COENZYME Q-10) 10 mg cap Take 100 mg by mouth two times a day. hyperimmune colostrum, bovine 200 mg tab Take 2 tablets by mouth twice daily. (Patient taking differently: Take 200 mg by mouth two times a day.) Ca/D3/mag ox/zinc/commercial helicopter pilot/jose/bor (CALCIUM 600-D3 PLUS, MAG-ZINC, ORAL) turmeric/turmeric ext/pepr ext (TURMERIC-TURMERIC EXT-PEPPER) 900-100-5 mg cap CPAP Bipap 17/13 cm H2O, Heat Humidity, suitable mask, [employer] supplies, opt Chinstrap, G47.33. cholecalciferol (VITAMIN D3) 2,000 unit tablet Take 2,000 Units by mouth once daily. FLUoxetine HCl (PROZAC) 40 mg capsule Take 1 capsule by mouth once daily. (Dr. Garcia) CYANOCOBALAMIN, VITAMIN B-12, (VITAMIN B-12 ORAL) Take by mouth. buPROPion XL (WELLBUTRIN XL) 150 mg 24 hr tablet Take one(1) tablet daily. Biotin (NAIL-EX) 2,500 mcg ORAL Tab Take 1,000 mcg by mouth once daily. DAILY VITAMIN TAB Take one(1) tablet daily. No current facility-administered medications for this visit. FAMILY HISTORY Problem Relation Age of Onset Diabetes Mother late in life at 75 Stroke Mother x3 Cancer Father myeloma (from immunesuppressants) at age 80 of chf and perf. bowel other (ESRD) Father had sudden renal failure; had kidney transplant at 68yo Thyroid Brother Hypertension Son No Known Problems Son Anesthesia Problems No Family History Blood Clots No Family History Clotting Disorder No Family History SOCIAL HISTORY: Lives in [place]. 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 2 sons. 3 grandchildren Tobacco use: None Alcohol use: 2-3 glasses of wine/day Drug use: None PHYSICAL EXAM: CONSTITUTIONAL: Well-appearing, in NAD. EYES: No scleral icterus or conjunctivitis NEURO: Awake, alert and oriented *Nov Widespread Pain Index: 15 (0-19) Symptoms Severity Scale: 7 (0-12) WPI>7 and SS Scale>5 OR WPI 3-6 and SS Scale >9 consistent with fibromyalgia Labs reviewed and discussed with the patient: Latest Ref Rn 11/15/2023 TB Nil <=8.00 IU/mL 0.02 TB1 Ag minus Nil <0.35 IU/mL 0.00 TB2 Ag minus Nil <0.35 IU/mL 0.00 TB Result Negative Mitogen minus Nil >=0.50 IU/mL >9.98 TB Interpretation Infection with M. tuberculosis complex is unlikely. If latent tuberculosis infection is highly suspected, a negative result does not rule out the infection. Specimens from immunocompromised patients and those <5 years of age may show false negative results. In case of a contact investigation, please repeat 8-12 weeks after a known exposure. CCP Antibody IgG Qualitative Negative Negative CCP Antibody, IgG <20 Units <15 Hep B Surface Ab, Qual Negative Hep B Surf Ab Quant mIU/mL <8.00 WSR 0 - 20 mm/hr 15 CRP <0.9 mg/dL <0.3 Rheumatoid Factor <16 IU/mL 26 (H) G-6-PD Quantitative 9.8 - 15.5 U/g Hb 13.0 Hep C Antibody IA Negative Negative Hep B Surface Ag Negative Negative Hep B Core Ab, Total Negative Negative Latest Ref Rng 07/11/2023 Protein, Total 6.3 - 8.0 g/dL 7.1 Albumin 3.9 - 4.9 g/dL 4.4 Calcium 8.5 - 10.2 mg/dL 9.9 Bilirubin, Total 0.2 - 1.3 mg/dL 0.4 Alkaline Phosphatase 34 - 123 U/L 89 AST 13 - 35 U/L 20 ALT 7 - 38 U/L 21 Glucose 74 - 99 mg/dL 111 (H) BUN 7 - 21 mg/dL 21 Creatinine 0.58 - 0.96 mg/dL 0.66 Sodium 136 - 144 mmol/L 135 (L) Potassium 3.7 - 5.1 mmol/L 4.3 Chloride 97 - 105 mmol/L 99 CO2 22 - 30 mmol/L 27 Anion Gap 9 - 18 mmol/L 9 eGFR >=60 mL/min/1.73m 95 WBC 3.70 - 11.00 k/uL 4.96 RBC 3.90 - 5.20 m/uL 4.69 Hemoglobin 11.5 - 15.5 g/dL 14.3 Hematocrit 36.0 - 46.0 % 42.6 MCV 80.0 - 100.0 fL 90.8 MCH 26.0 - 34.0 pg 30.5 MCHC 30.5 - 36.0 g/dL 33.6 RDW-CV 11.5 - 15.0 % 12.9 Platelet Count 150 - 400 k/uL 331 MPV 9.0 - 12.7 fL 9.2 Absolute nRBC <0.01 k/uL <0.01 Magnesium 1.7 - 2.3 mg/dL 1.9 Vitamin D 25 Hydroxy 31.0 - 80.0 ng/mL 41.5 Component Latest Ref Rng & Units 08/21/2014 KELTON Negative Positive (A) KELTON Titer Negative 1:80 (A) KELTON Pattern Speckled STUDIES: 02/2024 DEXA: IMPRESSION: THE LOWEST T-SCORE IS -1.3 IN THE LEFT HIP 1) DIAGNOSIS (based on BMD alone): OSTEOPENIA 2) FRACTURE RISK (based on FRAX): 10-year absolute fracture risk: - major osteoporotic fracture = 13 % - hip fracture = 1.4 % RESULTS: Lumbar spine (L1, L2, L3): 1.222 g/cm2, T-score 1.9, Z-score 3.9 Right Femoral Neck: 0.758 g/cm2, T-score -0.8, Z-score 1.0 Right Femoral Neck: 2021: 0.743 g/cm2 No statistically significant change Right Total Hip: 0.978 g/cm2, T-score 0.3, Z-score 1.8 Right Total Hip: 2021: 0.926 g/cm2 Statistically significant increase Left Femoral Neck: 0.702 g/cm2, T-score -1.3, Z-score 0.5 Left Femoral Neck: 2021: 0.688 g/cm2 No statistically significant change Left Total Hip: 0.906 g/cm2, T-score -0.3, Z-score 1.2 Left Total Hip: 2021: 0.893 g/cm2 No statistically significant change 2) FRACTURE RISK (based on FRAX): 10-year absolute fracture risk: - major osteoporotic fracture = 13 % - hip fracture = 1.4 % 02/2024 hand/wrist US: IMPRESSION: Minimal active synovitis involving the right third PIP, left second and third MCP joints and right wrist. No tenosynovitis of the hand or wrist. *Nov MRI L-spine- Advanced lumbar spondylosis with multiple levels of severe spinal canal stenosis at L2-L3, L3-L4 and L4-L5. Up to severe foraminal stenosis on the right at L4-L5. IMPRESSION and PLAN: 1. Prior diagnosis of inflammatory arthritis: Pain in the wrists, MCPs, and PIPs per exam which could be due to inflammatory arthritis. HCQ ineffective, caused skin issues and no change since stopping in September aside from increased shoulder pain. Recent +RF. Synovitis was noted on hand/wrist US in 02/2024. - recommended treatment with SSZ, which she defers for now. R/b/a of SSZ discussed and I will send further information on SSZ via my chart. Advised that active inflammation could cause irreversible joint damage. She verbalized understanding. 2. Generalized osteoarthritis: Hands, spine, knee s/p R TKA in . Tapered off tramadol - Tylenol up to 3000mg/day as needed for pain which helps - Continue home PT exercises for shoulder/back - Consider alternative therapies such as lyrica if needed (can't try savella given she is currently on wellbutrin) - Avoid NSAIDs PO given elevated July Cr level - Handicap parking permit letter provided 3. Spinal stenosis/lumbar spondylosis: Per MRI - Continue spine clinic management 4. Fibromyalgia: Meets criteria based on WPI/SS scale score as above. - Aerobic exercise - Please refer to the fibromyalgia treatment guidelines as detailed in the Nov note for further management by PCP 5. Clinical osteoporosis: s/p July L wrist fragility fx. Declined starting alendronate (or reclast). 02/2024 DEXA: lowest T-score -1.3 to L femoral neck, with increase to R total hip. Otherwise stable. - Continues to defer tx - Ca/vit D - Check DXA in 02/2026 6. General health maintenance: - Completed the covid vaccination series in July, moderna - Advised to continue follow-up with PCP for routine health maintenance and malignancy screening Follow-up in 5 months, or sooner if needed Thank you for allowing me to participate in the care of your patient. Prince West APRN.WEIGHT TRAINING INSTRUCTOR documented in this encounter [facility] 03-25-2024 Note [facility] 03-24-2024 Note [facility] 03-24-2024 History of Present illness Narrative Images from the original note were not included. Episode Visit Count: 5 Therapist That Will Accept/Oversee The Plan Of Care: [facility] PT Start of Care Date: 02/25/24 Onset Date: 08/25/23 Plan of Care Certification Date: 02/25/24 Next Certification Due Date: 03/24/24 Patient Identified by Name and Date of : Yes [facility]ABIL[facility]TS [facility]ERAPY PHYSICAL THERAPY DISCONTINUANCE OF CARE PLAN OF CARE UPDATE: Assessment: Priscilla Ramos is discontinued from Physical Therapy services due to maximal benefit. and Patient/Clinician mutual decision to discontinue current plan of care.. Patient was seen for 5 visits from Start of Care Date: 02/25/24 to 03/24/2024 and treatment included: Therapeutic exercise, Manual therapy, Patient/Family/Caregiver Education, and Body mechanics training. Updated: 03/24/24 Goals for Episode of Care: established 02/25/24 Independent in home exercises. - MET Patient will decrease pain to 0/10 at rest and with functional activities to allow patient to improve ambulation and standing tolerance for ADLs. - Not MET Restore pain-free lumbar ROM to WFL to allow for improved ability to complete cissp. - Partially MET Stand / Walk without limitations, without pain/symptoms. - Not MET Patient will increase strength of core/postural muscles to WFL to allow for improve ability to complete ADLs. - Not MET Patient Goals: decrease pain and numbness and get stronger. - Not MET SUBJECTIVE: Pt reports that overall her condition and symptoms are unchanged. She reports that 2 days ago she developed some numbness in her L LE and because she did not sit down quick enough, her L LE gave out and she fell in her kitchen. She denies needing or seeking medical care after her fall. She reports compliance with HEP 1x day most days and occassionally 2x day. She denies any improvements with standing, walking and cissp. She acknowledges that she has not been as compliant with PT as she would like. She does not feel that she would benefit from additional PT at this time. She reports only short term benefit from manual traction. Pain: Pain Pain Level: 4 Pain Location: Low Back/Lumbar Spine - Right, Low Back/Lumbar Spine - Left, Buttocks - Right, Buttocks - Left Description: Aching Frequency: Intermittent, Standing, Walking, Stairs Post Treatment Pain Post Treatment Pain Level: No Change PROMIS Scales 03/24/2024 02/25/2024 12/02/2023 Higher is Better Phys Func - Score 39 (moderate dysfunction) 41 (mild dysfunction) 39 (moderate dysfunction) Phys Func - Percentile 14 18 14 Self-Eff Symptom - Score 44 (Average) 44 (Average) Self-Eff Symptom - Percentile 27 27 T-scores: mean of general population = 50. 5 points is clinically meaningfully difference Percentiles provide an indication of how the patient's score ranks in relation to the general population. Higher percentile rankings indicate better function/quality of life. 50th percentile is the average of the general population and indicates half of respondents had a worse score. OBJECTIVE MEASURES WITH LEVEL OF FUNCTION: Lumbar Spine AROM Lumbar Flexion: Normal Lumbar Extension: Normal Lumbar R Side-Bend: Moderate limitation Lumbar L Side-Bend: Moderate limitation Lumbar R Rotation: Minimal limitation Lumbar L Rotation: Minimal limitation LE Strength Trunk Strength: No change R LE Strength: No change L LE Strength: No change TREATMENT: Therapeutic Exercise: 1: SciFit StepOne seat#12 x6 minutes 2: supine LTR reviewed for HEP 3: supine B SKTC reviewed for HEP 4: supine DKTC reviewed for HEP 5: Supine piriformis stretch reviewed for HEP 6: supine isometric abdominal exercise via shoulder extension 2 second hold reviewed for HEP 7: Hooklying TA activation with alt toe taps reviewed for HEP 8: Hooklying TA activation with UE movement reviewed for HEP 9: Re-assessment results were discussed with pt and used as rationale for d/c recommendations. Skilled Intervention: Patient was educated in proper exercise technique and purpose for exercises. Skilled judgment was used in selection of appropriate interventions. Correct performance of therapeutic exercises was facilitated with verbal and visual cuing. Billing Therapeutic Exercise Treatment Minutes: 35 Skilled Treatment Time Minutes (timed and untimed codes): 35 Total Session Time (minutes): 35 Session Start Time : 1410 Session Stop Time : [address] PT documented in this encounter [facility] 03-18-2024 Note [facility] 03-18-2024 History of Present illness Narrative Episode Visit Count: 4 Therapist That Will Accept/Oversee The Plan Of Care: Rd Ward PT Start of Care Date: 02/25/24 Onset Date: 08/25/23 Plan of Care Certification Date: 02/25/24 Next Certification Due Date: 03/24/24 Patient Identified by Name and Date of : Yes REHABILITATION AND SPORTS THERAPY PHYSICAL THERAPY TREATMENT NOTE ASSESSMENT: Priscilla Ramos tolerated the session with decreased activity tolerance due to increased low back pain this visit due to pt overdoing it at home the past few days. She demonstrated difficulty with tolerance to exercise due to fatigue. The patient will continue to benefit from ongoing skilled physical therapy to progress toward set goals. PLAN FOR NEXT VISIT: Continue with core strengthening with flexion directional preference. SUBJECTIVE: Pt reports that she has been doing a lot around her house and she is tired today. States her back is over stressed today. Pt states that her L leg went numb this morning, sat down and went away within 5 minutes. Pain: Pain Pain Level: 6 Pain Location: Low Back/Lumbar Spine - Right, Buttocks - Right Post Treatment Pain Post Treatment Pain Level: 2 Post Treatment Pain Location: Low Back/Lumbar Spine - Right, Buttocks - Right OBJECTIVE MEASURES WITH LEVEL OF FUNCTION: Increased tightness of low back noted with SKTC and DKTC. TREATMENT: Therapeutic Exercise: 1: SciFit StepOne seat#12 x6 minutes (Pt provided an update on her condition and plan of care reviewed.) 2: supine LTR 2x10 3: supine B SKTC 2x30 seconds 4: supine DKTC 2x30 seconds 5: Supine piriformis stretch 2x30 seconds B 6: supine isometric abdominal exercise via shoulder extension 2 second hold 2x10 7: Hooklying TA activation with alt toe taps 2x10 Skilled Intervention: Patient was educated in proper exercise technique and purpose for exercises. Skilled judgment was used in selection of appropriate interventions. Correct performance of therapeutic exercises was facilitated with verbal and visual cuing. Manual Therapy: Manual Traction: After therex, manual lumbar belt traction x15 minutes with pt supine and LEs elevated on leg rest. Force to pt tolerance with response monitored throughout. Skilled Intervention: Manual skills to improve joint mobility, ROM, and decrease pain. Utilized anatomy knowledge of the therapist, and assessment of patient's response to intervention. Billing Therapeutic Exercise Treatment Minutes: 26 Manual TherapyTreatment Minutes: 15 Skilled Treatment Time Minutes (timed and untimed codes): 41 Total Session Time (minutes): 41 Session Start Time : 1447 Session Stop Time : 1528 [address] Monae PT documented in this encounter [facility] 03-12-2024 History of Present illness Narrative Program_ID:[id number] Access Code: [email or web address] URL: [email or web address] Date: 03-12-2024 Prepared By: Rd Ward Program Notes Exercises - Supine Lower Trunk Rotation - 3 x daily - 7 x weekly - 2 sets - 10 reps - Supine Single Knee to Double Knee to Chest Stretch - 3 x daily - 7 x weekly - 1 sets - 3 reps - Supine Piriformis Stretch with Foot on Ground - 3 x daily - 7 x weekly - 1 sets - 3 reps - Supine Transversus Abdominis Bracing - Hands on Ground - 3 x daily - 7 x weekly - 2 sets - 10 reps - Supine 90/90 Alternating Toe Touch - 1 x daily - 7 x weekly - 2 sets - 10 reps - Bug - 1 x daily - 7 x weekly - 2 sets - 10 reps Episode Visit Count: 3 Therapist That Will Accept/Oversee The Plan Of Care: Rd Ward PT Start of Care Date: 02/25/24 Onset Date: 08/25/23 Plan of Care Certification Date: 02/25/24 Next Certification Due Date: 03/24/24 Patient Identified by Name and Date of : Yes REHABILITATION AND SPORTS THERAPY PHYSICAL THERAPY TREATMENT NOTE ASSESSMENT: Priscillamary Ramos tolerated the session with fatigue and expected muscle soreness. She demonstrated improvements in endurance with core strengthening. The patient will continue to benefit from ongoing skilled physical therapy to progress toward set goals. PLAN FOR NEXT VISIT: Continue with core strengthening with flexion directional preference. SUBJECTIVE: Pt reports that her back is not feeling too bad today. Pt states that depending on where she sits, it affects her back differently. Pt states that during last visit traction she felt fine, but then later in the day her back hurt more, would like to hold off on it for todays visit. Pain: Pain Pain Level: 1 Pain Location: Low Back/Lumbar Spine - Right, Buttocks - Right Description: Aching Frequency: Intermittent Post Treatment Pain Post Treatment Pain Level: No Change Post Treatment Pain Location: Low Back/Lumbar Spine - Right, Buttocks - Right OBJECTIVE MEASURES WITH LEVEL OF FUNCTION: TREATMENT: Therapeutic Exercise: 1: SciFit StepOne seat#12 x6 minutes (Pt provided an update on her condition and plan of care reviewed.) 2: supine LTR 2x10 3: supine B SKTC 3x30 seconds 4: supine DKTC 3x30 seconds 5: Supine piriformis stretch 3x30 seconds B 6: supine isometric abdominal exercise via shoulder extension 2 second hold 2x10 7: *Hooklying TA activation with alt toe taps 2x10 8: *Hooklying TA activation with UE movement 2x10 B 9: seated at side of treatment table blue t-band perturbations R, L and forward 3x15 each 10: Seated TA activation push into 55 cm physioball 2x10 Skilled Intervention: Patient was educated in proper exercise technique and purpose for exercises. Reviewed and educated patient on additions/changes for home exercise program as above (*). Skilled judgment was used in selection of appropriate interventions. Provided written instruction for home exercise program to facilitate proper performance and compliance. Correct performance of therapeutic exercises was facilitated with verbal and visual cuing. Billing Therapeutic Exercise Treatment Minutes: 40 Skilled Treatment Time Minutes (timed and untimed codes): 40 Total Session Time (minutes): 40 Session Start Time : 1010 Session Stop Time : 1050 Al[address] Barroso PTA documented in this encounter [facility] 03-12-2024 Note [facility] 03-04-2024 Note [facility] 03-04-2024 History of Present illness Narrative Episode Visit Count: 2 Therapist That Will Accept/Oversee The Plan Of Care: Rd Ward PT Start of Care Date: 02/25/24 Onset Date: 08/25/23 Plan of Care Certification Date: 02/25/24 Next Certification Due Date: 03/24/24 Patient Identified by Name and Date of : Yes REHABILITATION AND SPORTS THERAPY PHYSICAL THERAPY TREATMENT NOTE ASSESSMENT: Priscilla Ramos tolerated the session with decreased symptoms. She demonstrated improvements in pain after session today. The patient will continue to benefit from ongoing skilled physical therapy to progress toward set goals. PLAN FOR NEXT VISIT: Review, correct and progress HEP to tolerance. Continue with postural stretching and strengthening with flexion directional preference and consider manual belt traction prn. SUBJECTIVE: Pt reports that she has been compliant with HEP 2x day without any increased pain or problems. She does report that she has had increased pain. She reports that the increased pain in R low back and R buttock area started 4 days ago without explanation. She does report planting a tree 7 days prior to the onset of the increased pain but that the pain did not develop for a week. She reports seeing her massage therapist and chiropractor the past two days. She reports that prolonged sitting lately may have contributed to her symptoms. Pain: Pain Pain Level: 3 (10/29 earlier this morning) Pain Location: Low Back/Lumbar Spine - Right, Buttocks - Right Description: Stabbing Frequency: Intermittent Post Treatment Pain Post Treatment Pain Level: Better Post Treatment Pain Location: Low Back/Lumbar Spine - Right, Buttocks - Right Post Treatment Symptoms: After session, pt stated, it feels good. OBJECTIVE MEASURES WITH LEVEL OF FUNCTION: TREATMENT: Therapeutic Exercise: 1: SciFit StepOne seat#12 x6 minutes (Pt provided an update on her condition and plan of care reviewed.) 2: supine LTR 2x10 3: supine B SKTC 3x30 seconds 4: supine DKTC 3x30 seconds 5: supine crunches 2x10 6: supine isometric abdominal exercise via shoulder extension 2 second hold 2x10 7: seated at side of treatment table blue t-band perturbations R, L and forward 3x15 each 8: supine piriformis stretch reviewed and continuation encouraged to tolerance. Skilled Intervention: Patient was educated in proper exercise technique and purpose for exercises. Skilled judgment was used in selection of appropriate interventions. Correct performance of therapeutic exercises was facilitated with verbal and visual cuing. Patient education as noted. Manual Therapy: Manual Traction: After therex, manual lumbar belt traction x10 minutes with pt supine and LEs elevated on leg rest. Force to pt tolerance with response monitored throughout. Skilled Intervention: Manual skills to improve joint mobility, ROM, and decrease pain. Utilized anatomy knowledge of the therapist, and assessment of patient's response to intervention. Billing Therapeutic Exercise Treatment Minutes: 35 Manual TherapyTreatment Minutes: 10 Skilled Treatment Time Minutes (timed and untimed codes): 45 Total Session Time (minutes): 45 Session Start Time : 1600 Session Stop Time : [address] PT documented in this encounter [facility] 03-02-2024 History of Present illness Narrative Radiology Service Progress Note PATIENT NAME: Priscilla Ramos DATE OF SERVICE: March 02, 2024 TIME: 2:14 PM PATIENT IDENTITY VERIFICATION COMPLETED USING TWO (2) IDENTIFIERS: Name and Date of confirmed by patient verbally. FALL SCREENING: Has the patient had 2 falls in the last year or 1 fall with injury or currently using an Ambulatory Assistive Device (Walker, Cane, Wheelchair, Crutches, etc.)? No PATIENT GENDER DATA: Female. status: : No status: NO. PATIENT RELEVANT IMPLANT DATA REVIEWED: Not Applicable PATIENT PRESENTS WITH AN IMPLANTABLE OR ATTACHED COMPENSATION AND BENEFITS ADMINISTRATOR: No RADIOLOGY DEPARTMENT: Bone Density PERIPHERAL IV DATA: Not applicable SIGNED BY: RT Jamin(R) March 02, 2024 2:14 PM documented in this encounter [facility] 03-02-2024 Note [facility] 02-25-2024 Note [facility] 02-25-2024 History of Present illness Narrative Images from the original note were not included. Episode Visit Count: 1 Therapist That Will Accept/Oversee The Plan Of Care: Rd Ward PT Start of Care Date: 02/25/24 Onset Date: 08/25/23 Plan of Care Certification Date: 02/25/24 Next Certification Due Date: 03/24/24 Patient Identified by Name and Date of : Yes REHABILITATION AND SPORTS THERAPY PHYSICAL THERAPY EVALUATION PLAN OF CARE: Assessment: Priscilla Ramos presents with chief complaint of low back and L LE pain that interferes with standing, walking (cissp) . The patient presents with impairments in ADL's, independence in exercise, overall function, strength, and symptom management. PROMIS (Patient-Reported Outcomes Measurement Information System) scores were reviewed and identified as a rehabilitation concern. Prognosis for therapy is Good due to: current objective clinical presentation, positive past response to therapy, within-session changes, good support system/ coping skills. The patient will benefit from skilled therapy services to meet the goals established for this plan of care as noted below. Classification Pain Mechanism Classification: Neuropathic Low Back Pain Classification: Symptom Modulation Goals for Episode of Care: established 02/25/24 Independent in home exercises. Patient will decrease pain to 0/10 at rest and with functional activities to allow patient to improve ambulation and standing tolerance for ADLs. Restore pain-free lumbar ROM to WFL to allow for improved ability to complete cissp. Stand / Walk without limitations, without pain/symptoms. Patient will increase strength of core/postural muscles to WFL to allow for improve ability to complete ADLs. Patient Goals: decrease pain and numbness and get stronger. Time Frame for Goals and Treatment : 03/24/24 Planned Interventions, Frequency, and Duration: Current Frequency: 1x/week Duration: 4 weeks Total Number of Visits Planned: 4 Planned Treatment Interventions: Therapeutic exercise (51714), Neuromuscular re-education (81317), Manual therapy (94089), Therapeutic activities (29594), Self-correction management (20665), Patient/Family/Caregiver Education, Body Mechanics Training PLAN FOR NEXT VISIT: Review, correct and progress HEP to tolerance. Continue with postural stretching and strengthening with flexion directional preference and consider manual belt traction prn. Patient demonstrates good understanding of plan of care and treatment. The above goals and plan of care were discussed and agreed upon by patient/family. SUBJECTIVE: Pt reports intermittent pain and numbness in both sides of low back and down L LE to foot. She reports that these symptoms are aggravated by morning activities, especially standing at the sink. She reports chronic lumbar radiculopathy symptoms that flared up in August 2023 without explanation. She reports receiving an injection in her lumbar spine 02/17/2024 and that this has helped to decrease her pain symptoms and decrease frequency of L LE numbness. Patient Goals: decrease pain and numbness and get stronger. 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 Cancer Clinical Reasoning: No identified risk factors. Infection Red Flags: History of infection - ask about clinical sx and sxs/patient presentation Infection Clinical Reasoning: Proceed with caution (recently treated for UTI) Cauda Equina Syndrome Clinical Reasoning: No identified risk factors. Red Flags - Cervical Cancer Clinical Reasoning: No identified risk factors. Infection Red Flags: History of infection - ask about clinical sx and sxs/patient presentation Infection Clinical Reasoning: Proceed with caution (recently treated for UTI) Spine History Symptoms Location at Onset: Back, Buttock, Thigh, Calf, Foot Symptoms Since Onset: Improving Pain is Worse Sometimes: Standing, Walking Pain is Better Sometimes: Sitting Previous Episodes: Yes Previous Spine Episodes: chronic lumbar radiculopathy that improved with therapy Sleeping Position: Side lying right, Side lying left, Supine Sleep Affected by Pain: Not affected by pain Pain: Pain Pain Level: (2-3/10 when it occurs) Pain Location: Low Back/Lumbar Spine - Right, Low Back/Lumbar Spine- Midline, Low Back/Lumbar Spine - Left, Leg - Left Description: Numbness, Aching Frequency: Intermittent, Standing, Walking Post Treatment Pain Post Treatment Pain Level: No Change PROMIS Scales 02/25/2024 12/02/2023 10/12/2023 Higher is Better Phys Func - Score 41 (mild dysfunction) 39 (moderate dysfunction) 41 (mild dysfunction) Phys Func - Percentile 18 14 18 Self-Eff Symptom - Score 44 (Average) Self-Eff Symptom - Percentile 27 T-scores: mean of general population = 50. 5 points is clinically meaningfully difference Percentiles provide an indication of how the patient's score ranks in relation to the general population. Higher percentile rankings indicate better function/quality of life. 50th percentile is the average of the general population and indicates half of respondents had a worse score. OBJECTIVE MEASURES WITH LEVEL OF FUNCTION: Spine Observations R Lumbar Spine Palpation Tenderness: No tenderness noted L Lumbar Spine Palpation Tenderness: No tenderness noted Sensation - Lumbar Sensation: Grossly Intact Lumbar Spine AROM Lumbar Flexion: Normal Lumbar Extension: Normal Lumbar R Side-Bend: Moderate limitation Lumbar L Side-Bend: Moderate limitation Lumbar R Rotation: Minimal limitation Lumbar L Rotation: Minimal limitation LE Strength Trunk Strength: Pt's reported functional difficulties and reported chronicity of symptoms indicate that she will benefit from increased core and postural strength. R LE Strength: No asymmetrical myotomal weakness detected in B LEs L LE Strength: No asymmetrical myotomal weakness detected in B LEs Special Tests - Hip and Spine Hip and Spine Special Tests: SLR Test SLR Test: Left Positive, Right Positive Gait Gait Observation: normal Vitals BP: 129/78 Pulse: 80 Education: Education Learning Preferences: Demonstration, Explanation, Performance, Printed Materials Barriers: None Learning/educational needs: Home exercise program, Plan of Care, Body Mechanics Education Provided: Yes, see treatment interventions for education provided Education Provided To: Patient Education Mode/Type: Demonstration, Explanation/Discussion, Literature/Printed Materials, Performance Response to Education/Teach Back: States/Identifies, Return Demonstration, Requires Review/Additional Education TREATMENT: PT Treatment Interventions: Therapeutic Exercise Evaluation Therapeutic Exercise: 1: Pt was educated on the anatomy of lumbar spine, likely etiology of symptoms and rationale for recommended plan of care. She was reminded to use pain as her guide at all times and to stop any exercise that causes increased pain. 2: *supine LTR 2x10 3: *supine B SKTC 3x30 seconds 4: *supine DKTC 3x30 seconds 5: *supine piriformis stretch 3x30 seconds 6: *supine isometric abdominal exercise via shoulder extension 2 second hold 2x10 Skilled Intervention: Patient was educated in proper exercise technique and purpose for exercises. Reviewed and educated patient on additions/changes for home exercise program as above (*). Skilled judgment was used in selection of appropriate interventions. Provided written instruction for home exercise program to facilitate proper performance and compliance. Correct performance of therapeutic exercises was facilitated with verbal, visual, and tactile cuing. Patient education as noted. Billing * Evaluation Low Complexity: 1 Unit Therapeutic Exercise Treatment Minutes: 26 Skilled Treatment Time Minutes (timed and untimed codes): 46 Total Session Time (minutes): 46 Session Start Time : 1000 Session Stop Time : [address] PT Program_ID:[id number] Access Code: [email or web address] URL: [email or web address] Date: 02-25-2024 Prepared By: Rd Ward Program Notes Exercises - Supine Lower Trunk Rotation - 3 x daily - 7 x weekly - 2 sets - 10 reps - Supine Single Knee to Double Knee to Chest Stretch - 3 x daily - 7 x weekly - 1 sets - 3 reps - Supine Piriformis Stretch with Foot on Ground - 3 x daily - 7 x weekly - 1 sets - 3 reps - Supine Transversus Abdominis Bracing - Hands on Ground - 3 x daily - 7 x weekly - 2 sets - 10 reps documented in this encounter [facility] 02-25-2024 Telephone encounter Note Patient notified of providers message and verbalized understanding [facility] 02-25-2024 Miscellaneous Notes Patient notified of providers message and verbalized understanding Yes, script sent DDM. Patient calling she was seen on 02/20 for UTI began Bactrim twice daily and completed rx 02/23. Patient said she has less urgency, but still lots of pressure, no burning, smaller amount for the urgency she feels to void. Patient asking if she is needing longer course of antibiotic? Patient uses [facility] for her pharmacy. Please advise documented in this encounter [facility] 02-25-2024 Telephone encounter Note Yes, script sent DDM. [facility] 02-25-2024 Telephone encounter Note Patient calling she was seen on 02/20 for UTI began Bactrim twice daily and completed rx 02/23. Patient said she has less urgency, but still lots of pressure, no burning, smaller amount for the urgency she feels to void. Patient asking if she is needing longer course of antibiotic? Patient uses [facility] for her pharmacy. Please advise [facility] 02-21-2024 History of Present illness Narrative No chief complaint on file. 69 year old female presents with 1 day(s) of dysuria, frequency, and urgency. Without report of hematuria, incontinence, or fever. PMH:rare. She recently had spinal injection for lumbar radiculopathy 02/17/2024 which seems to have helped. Review of Systems Constitutional: Negative. Genitourinary: Positive for dysuria, frequency and urgency. BP 133/77 Pulse 81 Resp 16 Wt 118.5 kg (261 lb 3.9 oz) BMI 43.47 kg/m Physical Exam Vitals and nursing note reviewed. Constitutional: Appearance: Normal appearance. HENT: Head: Normocephalic and atraumatic. Eyes: Conjunctiva/sclera: Conjunctivae normal. Cardiovascular: Rate and Rhythm: Normal rate. Pulmonary: Effort: Pulmonary effort is normal. Skin: General: Skin is warm and dry. Neurological: General: No focal deficit present. Mental Status: She is alert and oriented to person, place, and time. ASSESSMENT: Uncomplicated UTI ASSESSMENT/PLAN: 1. Urgency of urination - ICD9: 788.63, ICD10: R39.15 (primary diagnosis) - UA DIP B/O - URINE CULTURE - SULFAMETHOXAZOLE 800 MG-TRIMETHOPRIM 160 MG TABLET - URINALYSIS WITH MICROSCOPIC, REFLEX CULTURE 2. Urinary tract infection without hematuria, site unspecified - ICD9: 599.0, ICD10: N39.0 acute - Send urine for culture - Begin treatment with Bactrim DS BID for 3 days - Patient education for prevention given Kasie Limon APRN.CNS Medical Decision Making: Problems: Low: Acute, uncomplicated illness or injury Data: Unique test(s) ordered: 2 Risk: Moderate: Drug management Medical Decision Making Level: 3 - Low documented in this encounter [facility] 02-21-2024 Note [facility] 02-21-2024 Instructions Kasie Limon APRN.CNS - 02/21/2024 2:26 PM EDT Images from the original note were not included. Urinary Problem-When to Seek Help? Symptoms of a urinary problem may lead to a bladder infection. Women are at greater risk of a urinary tract infection than are men. Most urinary tract infections in women are caused by bacteria and involve the lower urinary tract including the bladder and urethra. Symptoms: Pain or burning when passing urine, urgency, frequency, blood in the urine, difficult emptying your bladder, and lower abdominal fullness or pressure. Common Causes: Sexual intercourse, menopause, constipation, uncontrolled diabetes, dehydration and feminine products such as tampons, and kidney stones. When to Get Help: Seek medical attention if you get frequent bladder infections, urinary concerns such as leakage, blood in the urine or frequent need to urinate. You may be recommended to get help from a specialist, such as a urologist. Diagnosis & Treatment: Lab testing may include: urinalysis, and urine culture that can be collected in the lab or walk-in clinic. Most bladder infections can easily be treated. A physician, nurse practitioner or physician carpenter assistant installer may treat with a short course of an antibiotic. Delaying treatment can lead to worsening symptoms, like a kidney infection. Self-Care: Avoid a full bladder, bubble baths, bath oils, food and beverages that may irritate the bladder such as caffeine. Avoid spermicide foam and diaphragms Void before and after sexual intercourse Wipe front to back after using the bathroom. Stay hydrated Stop Smoking Follow-up Care: Follow up testing is not needed in healthy young women if symptoms resolve. documented in this encounter [facility] 02-21-2024 History of Present illness Narrative Radiology Service Progress Note PATIENT NAME: Priscilla Ramos DATE OF SERVICE: February 21, 2024 TIME: 2:20 PM PATIENT IDENTITY VERIFICATION COMPLETED USING TWO (2) IDENTIFIERS: Name and Date of confirmed by patient verbally. FALL SCREENING: Has the patient had 2 falls in the last year or 1 fall with injury or currently using an Ambulatory Assistive Device (Walker, Cane, Wheelchair, Crutches, etc.)? No PATIENT GENDER DATA: Female. status: : No status: NO. PATIENT RELEVANT IMPLANT DATA REVIEWED: Not Applicable PATIENT PRESENTS WITH AN IMPLANTABLE OR ATTACHED COMPENSATION AND BENEFITS ADMINISTRATOR: No RADIOLOGY DEPARTMENT: Ultrasound PERIPHERAL IV DATA: Not applicable SIGNED BY: Faye House RDMS RVT February 21, 2024 2:20 PM documented in this encounter [facility] 02-21-2024 Note [facility] 02-21-2024 Telephone encounter Note Patient calls for UTI symptoms. Nurse triage completed. Protocol recommends see provider within 24 hours. Appointment scheduled. Reason for Disposition Age > 50 years Answer Assessment - Initial Assessment Questions 1. SEVERITY: - MODERATE (4-7): Interferes with normal activities. 2. FREQUENCY: Started this morning 3. PATTERN: Started this morning 4. ONSET: Started this morning 5. FEVER: No 6. PAST UTI: HX of UTI 7. CAUSE: Patient reports that she thinks it is a UTI. 8. OTHER SYMPTOMS: Urgency and some pain with urination. No blood in urine, flank pain, genital sores, vaginal discharge Protocols used: Urination Pain - [id number] [facility] 02-21-2024 Miscellaneous Notes Patient calls for UTI symptoms. Nurse triage completed. Protocol recommends see provider within 24 hours. Appointment scheduled. Reason for Disposition Age > 50 years Answer Assessment - Initial Assessment Questions 1. SEVERITY: - MODERATE (4-7): Interferes with normal activities. 2. FREQUENCY: Started this morning 3. PATTERN: Started this morning 4. ONSET: Started this morning 5. FEVER: No 6. PAST UTI: HX of UTI 7. CAUSE: Patient reports that she thinks it is a UTI. 8. OTHER SYMPTOMS: Urgency and some pain with urination. No blood in urine, flank pain, genital sores, vaginal discharge Protocols used: Urination Pain - [id number] documented in this encounter [facility] 02-11-2024 Telephone encounter Note Called and spoke with patient. Discussed medication guidelines for upcoming procedure. Patient verbalizes understanding. Information sent on MyChart for review. No other questions or concerns. [facility] 02-11-2024 Miscellaneous Notes Called and spoke with patient. Discussed medication guidelines for upcoming procedure. Patient verbalizes understanding. Information sent on [employer] System[employer] for review. No other questions or concerns. documented in this encounter [facility] 01-30-2024 Telephone encounter Note Patient scheduled for a procedure on 02/17/24 in the [facility] 2nd floor Is patient diabetic? No Is patient taking a 81mg aspirin? No Is patient currently taking Coumadin, Pletal, Plavix, Rheopro, Ticlid, Lovenox, Heparin, or any other blood thinners? REVIEWED BY PROVIDER: , no Is patient allergic to Latex, shellfish, seafood, iodine, contrast dye, steroids or local anesthetics? No Does patient have a history of pacemaker or internal defibrillator?No Pt verbalized understanding of above instructions: No Printed instructions handed to patient: No MyChart message sent with instructions:Yes [facility] 01-30-2024 Miscellaneous Notes Patient scheduled for a procedure on 02/17/24 in the [facility] 2nd floor Is patient diabetic? No Is patient taking a 81mg aspirin? No Is patient currently taking Coumadin, Pletal, Plavix, Rheopro, Ticlid, Lovenox, Heparin, or any other blood thinners? REVIEWED BY PROVIDER: , no Is patient allergic to Latex, shellfish, seafood, iodine, contrast dye, steroids or local anesthetics? No Does patient have a history of pacemaker or internal defibrillator?No Pt verbalized understanding of above instructions: No Printed instructions handed to patient: No MyChart message sent with instructions:Yes documented in this encounter [facility] 01-17-2024 Note [facility] 01-17-2024 History of Present illness Narrative Follow[facility]up Visit [facility] January 17, 2024 CC: Lumbar spine pain left lower limb numbness. SUBJECTIVE: Patient returns today to discuss the results of her lumbar MRI imaging. She continues to to complain of pain in the left low back and numbness down the left lower limb. Has also undergone lumbar MRI. Here today to review imaging and discuss further treatment options. She had also undergone EMG Since last visit: she continues to deny bowel/bladder incontinence, denies fever, denies night pain, denies unintentional weight loss, denies clumsiness of hands or dropping things, denies clumsiness of feet, tripping or falling. Denies any constitutional or myelopathic symptomatology. No interval change in PMHX, PSHX, Allergies, FamHx or ROS. PMH: PAST MEDICAL HISTORY Diagnosis Date Abnormal mammogram, unspecified 06/27/2006 Acquired hypothyroidism 07/04/2017 CAD (coronary artery disease) CAD (coronary artery disease) 07/25/2022 Calculus of gallbladder with chronic cholecystitis without obstruction 08/01/2015 Corns and callosities 01/24/2014 Diarrhea Dysphagia 05/27/2015 feeling like food sits in bottom of esophagus if eats heavier than usual meal Dysthymic disorder Depression (non-psychotic) Elevated antinuclear antibody (KELTON) level 08/25/2014 Essential hypertension HTN (hypertension) 07/25/2022 Internal hemorrhoids without mention of complication Left wrist sprain 07/2022 Myalgia and myositis, unspecified FIBROMYALGIA Obesity, unspecified Obesity Obstructive sleep apnea DME [facility] Osteoarthritis of multiple joints PAIN LEG (Right) 02/20/2005 Temporomandibular joint disorders, unspecified 11/23/2006 PSH: PAST SURGICAL HISTORY Procedure Laterality Date ARTHRP KNE CONDYLE&PLATU MEDIAL&LAT COMPARTMENTS 09/2011 right DELIVERY ONLY , low cervical DELIVERY ONLY , low cervical COLONOSCOPY 08/01/2022 repeat in 5 years COLONOSCOPY FLX DX W/COLLJ SPEC WHEN PFRMD 07/29/2017 Colonoscopy COLONOSCOPY W/BIOPSY SINGLE/MULTIPLE 02/10/2007 LAPS SURG CHOLECYSTECTOMY W/CHOLANGIOGRAPHY 08/17/2015 LEFT HEART CATH,PERCUTANEOUS PAST SURGICAL HISTORY OF foot-left PAST SURGICAL HISTORY OF left foot - no hardware STEREOTACTIC CORE BIOPSY 07/04/2006 UOQ RIGHT AVANI W/WO REMOVAL TUBE OVARY 2000 Hysterectomy, AVANI ovaries remain Social history: Social History Tobacco Use Smoking status: Never Smokeless tobacco: Never Vaping Use Vaping status: Never Used Substance Use Topics Alcohol use: Yes Alcohol/week: 18.0 standard drinks of alcohol Types: 18 Glasses of wine per week Comment: wine with supper Drug use: No Fam history: FAMILY HISTORY Problem Relation Age of Onset Diabetes Mother late in life at 75 Stroke Mother x3 Cancer Father myeloma (from immunesuppressants) at age 80 of chf and perf. bowel other (ESRD) Father had sudden renal failure; had kidney transplant at 68yo Thyroid Brother Hypertension Son No Known Problems Son Anesthesia Problems No Family History Blood Clots No Family History Clotting Disorder No Family History Reviewed and updated with patient. ALLERGIES: Patient has no known allergies. DATA REVIEW: Lumbar MRI reviewed imaging shows evidence of multilevel central canal stenosis. In the upper lumbar spine moderate canal stenosis related to epidural lipomatosis. At the L4-L5 level there is evidence of severe central canal stenosis with bilateral lateral recess stenosis and likely compression of the bilateral traversing L5 nerves. OBJECTIVE: Vital Signs: Resp 16 Ht 165.1 cm (5' 5) Wt 119.7 kg (264 lb) BMI 43.93 kg/m ASSESSMENT: General:Patient in no apparent distress, afebrile, well appearing Lungs:No labored breathing, symetric chest excursion, no tachypnia Heart:No lower limb edema, pulses palpable and symetric dorsalis pedis and radial, no cyanosis Abdominal:Non distended abdomen Neuro:Strength intact bilateral lower limbs Lumbar paraspinal muscles Skin:Head, neck, trunk, and extremities dry, intact and without lesions. DX: Chronic bilateral low back pain with left-sided sciatica (primary encounter diagnosis) Lumbar radiculopathy PLAN: 1) We reviewed lumbar MRI imaging. Evidence of central canal stenosis several levels. Most notably at the L4-L5 level with compression of the traversing L5 nerves bilaterally. Discussed option of pursuing lumbar epidural injection below the level of her severe stenosis. At this time patient was advised there is no imminent danger as these nerves have likely been compressed for quite some time. If symptoms should significantly worsen she will contact our office and we will schedule her for a lumbar epidural injection. We reviewed EMG results which show evidence of chronic L5 and S1 radiculitis Advised patient that in light of her multilevel lumbar canal stenosis could consider evaluation with spine surgeon for decompression and likely fusion to address her pain complaints, however, at this time patient is not wishing to pursue this option. Jovany Bahena DO, MPH Staff Physician [facility] This document has been created with the use of voice recognition technology. It may contain inaccuracies: misspellings, inaccurate syntax or word sense that escaped review. documented in this encounter [facility] 12-27-2023 Note [facility] 12-27-2023 History of Present illness Narrative ESTABLISHED PATIENT VISIT CHIEF COMPLAINT: Follow Up HISTORY OF PRESENT ILLNESS: Priscilla Ramos is a 68 year old female, with a PMH significant for and perlast office visit of 03/22/23: 1. NELI on CPAP - ICD9: 327.23, ICD10: G47.33 (primary diagnosis) Subjective and objective compliance (PAP data download) confirmed during office visit. Pt endorses perceived benefit with PAP use. No mask issues. Reminded pt to clean and replace equipment regularly. Advised pt not to drive or operate heavy machinery if sleepy 2. RLS (restless legs syndrome) - ICD9: 333.94, ICD10: G25.81 Stable on gabapentin 800mg 1.5 hours prior to bedtime. Rare breakthrough if does not take meds on time due to other responsibilities. 3. Fibromyalgia - ICD9: 729.1, ICD10: M79.7 As with RLS. Not disrupting sleep with gabapentin. 4. Malaise and fatigue - ICD9: 780.79, ICD10: R53.81, R53.83 5. Excessive daytime sleepiness - ICD9: 780.54, ICD10: G47.19 Patient with chronic fatigue due to med conditions but also endorsing daytime sleepiness. ESS not completed. Getting adequate sleep nightly. Question if depression playing some role in EDS. She will be seeing new psychiatrist next month to determine need for med changes. No SI or HI. If med changes provide no relief, then consider trial of Provigil or Nuvigil so long as BP and HR controlled. Pt will follow up approximately 1 month after seeing psychiatry. 6. Chronic insomnia - ICD9: 780.52, ICD10: F51.04 Stable on Trazodone 25mg nightly. Pt has option to increase back up to 50mg if needed, but over all goal is for patient to try to stop medication at some point in the near future. PAP data download up to 12/23/23 shows 90/90 days used for avg of 9 hours and 40 minutes. Currently on bilevel at 17/13 cmH2O. AHI is 2.6. 95% leak is 2.1 LPM. Patient reports doing fine. States no complaints. RLS still controlled on the gabapentin - pentecostal about taking it. Takes about 630PM as goes to bed early. 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 Typically going to bed about 10PM. Waking to start the day about 8AM. Stays asleep through the night. Stiff and sore in the AM due to known arthritis. However finds sleep mentally restorative. Now with different psychiatrist but did not change any meds. 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 However, not hitting a tired wall in the afternoon. Has 2 cups of coffee in the AM. Continues on Trazodone 25mg QHS. Following with spine due to LLE going numb at times. MRI of L spine reviewed with pt and showing mutiple levels of severe canal stenosis (agree with rad report). No bowel or bladder issues. REVIEW OF SYSTEMS GENERAL:No weight loss, malaise or fevers. HEENT:Negative for frequent or significant headaches, No changes in hearing or vision, no nose bleeds or other nasal problems NECK:Negative for lumps, goiter, pain and significant neck swelling RESPIRATORY: Negative for cough, wheezing or shortness of breath. CARDIOVASCULAR: Negative for chest pain, leg swelling or palpitations. GASTROINTESTINAL: Negative for abdominal discomfort, blood in stools or black stools or change in bowel habits GENITOURINARY: No history of dysuria, frequency or incontinence MUSCULOSKELETAL: See HPI. NEUROLOGIC:Negative for focal numbness or weakness, headaches and dizziness or syncope, vision changes, speech/languag changes - EXCEPT that as per HPI above. SKIN:Negative for lesions, rash, and itching. PSYCHIATRIC: See HPI. HEMATOLOGIC/LYMPHATIC/IMMUNOLOGIC: Negative for prolonged bleeding, bruising easily or swollen nodes. ENDOCRINE: Negative for cold or heat intolerance, polyuria, polydipsia and goiter. The remainder of the ROS was reviewed and is negative. LAB/IMAGING: Those performed since patient's last visit have been reviewed. WBC (k/uL) Date Value 07/11/2023 4.96 RBC (m/uL) Date Value 07/11/2023 4.69 Hemoglobin (g/dL) Date Value 07/11/2023 14.3 Hematocrit (%) Date Value 07/11/2023 42.6 MCV (fL) Date Value 07/11/2023 90.8 MCH (pg) Date Value 07/11/2023 30.5 MCHC (g/dL) Date Value 07/11/2023 33.6 RDW-CV (%) Date Value 07/11/2023 12.9 Platelet Count (k/uL) Date Value 07/11/2023 331 MPV (fL) Date Value 07/11/2023 9.2 Glucose (mg/dL) Date Value 07/11/2023 111 (H) BUN (mg/dL) Date Value 07/11/2023 21 Creatinine (mg/dL) Date Value 07/11/2023 0.66 Sodium (mmol/L) Date Value 07/11/2023 135 (L) Potassium (mmol/L) Date Value 07/11/2023 4.3 Chloride (mmol/L) Date Value 07/11/2023 99 CO2 (mmol/L) Date Value 07/11/2023 27 Protein, Total (g/dL) Date Value 07/11/2023 7.1 Albumin (g/dL) Date Value 07/11/2023 4.4 Calcium, Total (mg/dL) Date Value 07/11/2023 9.9 Alkaline Phosphatase (U/L) Date Value 07/11/2023 89 Bilirubin, Total (mg/dL) Date Value 07/11/2023 0.4 AST (U/L) Date Value 07/11/2023 20 ALT (U/L) Date Value 07/11/2023 21 KELTON (no units) Date Value 08/21/2014 Positive (A) Rheumatoid Factor (IU/mL) Date Value 11/15/2023 26 (H) Hep B Surface Ab Quant (mIU/mL) Date Value 11/15/2023 <8.00 Hep C Antibody IA (no units) Date Value 11/15/2023 Negative MEDICATIONS: rosuvastatin (CRESTOR) 5 mg tablet Take 1 tablet by mouth every Saturday, Saturday, and Saturday. traZODone (DESYREL) 50 mg tablet Take 50 mg by mouth daily at bedtime. Takes 1/2 tablet at bedtime. gabapentin (NEURONTIN) 400 mg capsule Take 2 capsule 60-90 minutes before bedtime. hydroCHLOROthiazide 25 mg tablet Take 1 tablet by mouth every afternoon. levothyroxine (SYNTHROID) 25 mcg tablet Take 1 tablet by mouth once daily. acetaminophen (TYLENOL EXTRA STRENGTH) 500 mg tablet Take 1,000 mg by mouth every 8 hours as needed for pain. colestipol (COLESTID) 1 gram tablet Take 1-2 tablets by mouth once daily. As directed diclofenac (VOLTAREN ARTHRITIS PAIN) 1 % topical gel Apply 2 g to affected area four times daily as needed (wrist pain). acetaminophen (TYLENOL 8 HOUR ORAL) Take by mouth. BIPAP losartan (COZAAR) 100 mg tablet Take 100 mg by mouth once daily. aspirin 81 mg chewable tablet Take 81 mg by mouth once daily. ZINC ORAL Take by mouth. (Patient not taking: Reported on 12/16/2023) ubidecarenone Q-10 (COENZYME Q-10) 10 mg cap Take 100 mg by mouth two times a day. OTC NUTRITIONAL SUPPLEMENT Take 2 capsules by mouth twice daily. Fibro Care (Patient not taking: Reported on 12/16/2023) Xjcce-6-DWV-EPA-Fish Oil 300-1,000 mg cap Take 1,000 mg by mouth twice daily. (Patient not taking: Reported on 12/16/2023) hyperimmune colostrum, bovine 200 mg tab Take 2 tablets by mouth twice daily. (Patient taking differently: Take 200 mg by mouth two times a day.) Ca/D3/mag ox/zinc/commercial helicopter pilot/jose/bor (CALCIUM 600-D3 PLUS, MAG-ZINC, ORAL) turmeric/turmeric ext/pepr ext (TURMERIC-TURMERIC EXT-PEPPER) 900-100-5 mg cap CPAP Bipap 17/13 cm H2O, Heat Humidity, suitable mask, [employer], opt [place], G47.33. cholecalciferol (VITAMIN D3) 2,000 unit tablet Take 2,000 Units by mouth once daily. FLUoxetine HCl (PROZAC) 40 mg capsule Take 1 capsule by mouth once daily. (Dr. Garcia) CYANOCOBALAMIN, VITAMIN B-12, (VITAMIN B-12 ORAL) Take by mouth. buPROPion XL (WELLBUTRIN XL) 150 mg 24 hr tablet Take one(1) tablet daily. Biotin (NAIL-EX) 2,500 mcg ORAL Tab Take 1,000 mcg by mouth once daily. DAILY VITAMIN TAB Take one(1) tablet daily. HISTORIES PAST MEDICAL HISTORY 06/27/2006: Abnormal mammogram, unspecified 07/04/2017: Acquired hypothyroidism No date: CAD (coronary artery disease) 07/25/2022: CAD (coronary artery disease) 08/01/2015: Calculus of gallbladder with chronic cholecystitis without obstruction 01/24/2014: Corns and callosities No date: Diarrhea 05/27/2015: Dysphagia Comment: feeling like food sits in bottom of esophagus if eats heavier than usual meal No date: Dysthymic disorder Comment: Depression (non-psychotic) 08/25/2014: Elevated antinuclear antibody (KELTON) level No date: Essential hypertension 07/25/2022: HTN (hypertension) No date: Internal hemorrhoids without mention of complication 07/2022: Left wrist sprain No date: Myalgia and myositis, unspecified Comment: FIBROMYALGIA No date: Obesity, unspecified Comment: Obesity No date: Obstructive sleep apnea Comment: D[facility] No date: Osteoarthritis of multiple joints 02/20/2005: PAIN LEG (Right) 11/23/2006: Temporomandibular joint disorders, unspecified FAMILY HISTORY Problem Relation Age of Onset Diabetes Mother late in life at 75 Stroke Mother x3 Cancer Father myeloma (from immunesuppressants) at age 80 of chf and perf. bowel other (ESRD) Father had sudden renal failure; had kidney transplant at 68yo Thyroid Brother Hypertension Son No Known Problems Son Anesthesia Problems No Family History Blood Clots No Family History Clotting Disorder No Family History SOCIAL HISTORY Social History Tobacco Use Smoking status: Never Smokeless tobacco: Never Vaping Use Vaping status: Never Used Substance Use Topics Alcohol use: Yes Alcohol/week: 18.0 standard drinks of alcohol Types: 18 Glasses of wine per week Comment: wine with supper Drug use: No PHYSICAL EXAMINATION Blood pressure 124/77, pulse 85, weight 119.8 kg (264 lb 3.2 oz), SpO2 96%. GENERAL EXAM: General appearance: NAD, pleasant. HEENT: NC/AT, nasal congestion absent, no oral lesions, membranes moist. NECK: No masses, supple. Lungs: CTA bilaterally. CV: RRR nl S1, S2 Extr: No cyanosis, clubbing or edema. Skin: Cool to touch. NEUROLOGICAL EXAM: General: Awake, alert, oriented x3 (person,place,time), speech fluent, no dysarthria; comprehension, naming, repetition intact. CN: PERRL, EOMI and without nystagmus, VFF to confrontation, facial sensation and strength are normal and symmetric, hearing is intact, palate and tongue movements are intact and symmetric. SCM and trapezius strength symmetric. Motor: Normal tone, bulk and strength (5/5) bilaterally (throughout extremities x4). Coordination: FNF, NINA, HTS intact. No tremors. Sensation: Light touch and vibration intact throughout. No evidence of neglect. Gait: Stable with normal stride and arm swing. Assessment and Plan: ASSESSMENT/PLAN: 1. NELI on CPAP - ICD9: 327.23, ICD10: G47.33 (primary diagnosis) Overall doing well on PAP with both subjective and objective compliance and perceived benefit. No PAP complaints. Encouraged compliance. Reminded pt to clean and replace equipment regularly. Advised pt not to drive or operate heavy machinery if sleepy. 2. RLS (restless legs syndrome) - ICD9: 333.94, ICD10: G25.81 Stable on gabapentin 400 to 800mg prior to bedtime. No side effects. 3. Fibromyalgia - ICD9: 729.1, ICD10: M79.7 Stable on gabapentin 400 to 800mg prior to bedtime. No side effects. 4. Chronic insomnia - ICD9: 780.52, ICD10: F51.04 Stable so long as taking medications. Will continue Trazodone 25mg nightly in addition to gabapentin. Note that psychiatry also following and ok with Trazodone. 5. Class 3 severe obesity with body mass index (BMI) of 40.0 to 44.9 in adult, unspecified obesity type, unspecified whether serious comorbidity present (HCC) - ICD9: 278.01, V85.41, ICD10: E66.01, Z68.41 Contributing factor for NELI. Encouraged weight loss. D/w pt bariatric evaluation but declines at this time. 6. Spinal stenosis of lumbar region, unspecified whether neurogenic claudication present - ICD9: 724.02, ICD10: M48.061 Pt with severe L spine stenosis on MRI with complaint of LLE going out or numb. Non focal exam at this time. Will update Dr. Kimmie Bahena who is following pt from spine. Sahara Boateng MD Medical Decision Making: Problems: Moderate: 2+ stable chronic illnesses Data: Unique test result(s) reviewed: 2 Risk: Moderate: Drug management Medical Decision Making Level: 4 - Moderate PDMP website checked and validated. All prescriptions have been APPROPRIATELY filled. No suspicious activity was identified. 12/27/2023 by Sahara Boateng MD documented in this encounter [facility] 12-16-2023 Instructions Emilee Condon MD - 12/16/2023 4:46 PM EDT -Continue seeing Dr. Elkins for management of your anxiety and depression medications every 3-4 months. - Consider bringing a copy of your advanced directives to the clinic or uploading them to [employer]. - Continue regular check-ups with your eye doctor, Dr. Sweeney. - Reschedule your appointment with Dr. Bahena at the end of December to discuss the results of your MRI and EMG. - Keepusing a cane for balance when walking long distances or when you feel tired. - Schedule the ultrasounds of both hands as ordered by Dr. Hodges. - Monitor for any symptoms of illness after exposure to your grandson with pneumonia. - Eat a balanced diet with healthy fats and oils, and consider portion control to help with weight management. - Consider scheduling a physical therapy appointment for your TMJ issues if needed after seeing your massage therapist in December. Screening schedule The following prevention plan is recommended: Anxiety Screening Never done DTaP,Tdap,Td Vaccine(2 - Td or Tdap) due on 06/27/2021 Advance Directive Discussion due on 04/22/2023 Covid-19 Vaccine( season) due on 08/12/2023 WHAT YOU CAN DO TO PREVENT FALLS Many falls can be prevented. By making some changes, you can lower your chances of falling. Four things YOU can do to prevent falls for you* and your caregiver 1. Begin a regular exercise program Exercise is one of the most important ways to lower your chances of falling. It makes you stronger and helps you feel better. Exercises that improve balance and coordination (like Frandy Chi) are the most helpful. Lack of exercise leads to weakness and increases your chances of falling. Ask your doctor or health care provider about the best type of exercise program for you. 2. Have your health care provider review your medicines Have your doctor or pharmacist review all the medicines you take, even [id number] medicines. As you get older, the way medicines work in your body can change. Some medicines, or combinations of medicines, can make you sleepy or dizzy and can cause you to fall. 3. Have your vision checked Have your eyes checked by an eye doctor at least once a year. You may be wearing the wrong glasses or have a condition like glaucoma or cataracts that limits your vision. Poor vision can increase your chances of falling. 4. Make your home safer About half of all falls happen at home. To make your home safer: Remove things you can trip over (like papers, books, clothes, and shoes) from stairs and places where you walk. Remove small throw rugs or use double-sided tape to keep the rugs from slipping. Keep items you use often in cabinets you can reach easily without using a step stool. Have grab bars put in next to your toilet and in the tub or shower. Use non-slip mats in the bathtub and on shower floors. Improve the lighting in your home. As you get older, you need brighter lights to see well. Hang light-weight curtains or shades to reduce glare. Have handrails and lights put in on all staircases. Wear shoes both inside and outside the house. Avoid going barefoot or wearing slippers. For more information, contact: Centers for Disease Control and Prevention www.cdc.gov/injury * This information may not apply if you have certain medical conditions. documented in this encounter [facility] 12-16-2023 Note [facility] 12-16-2023 History of Present illness Narrative Images from the original note were not included. This note was created using [employer]. Subjective Priscilla Ramos is a 68 year old female. HISTORY Priscilla Ramos is a 68 year old lady here for yearly exam and follow up appointment. Patient is a 68-year-old female with a history of anxiety, depression, Tiffany's thyroiditis, and rheumatoid arthritis (RA), presenting for a Medicare wellness visit. Patient reports feeling nervous and on edge several days a week, but is currently managed by Dr. Elkins, a psychiatrist, who oversees her medications for both anxiety and depression. She sees Dr. Elkins every 3-4 months and feels that her anxiety and depression are adequately managed. Patient has advanced directives in place, with her two sons, Meño and Chase, listed as her healthcare proxies. She follows up with an eye doctor, Dr. Sweeney, for regular checkups. She also sees Dr. Gaming at the [facility] for cardiac care. Patient reports a history of balance issues and a fall approximately 1.5 years ago. She is currently experiencing numbness in her left leg, which is being evaluated by Dr. Bahena at [place]. She has undergone an EMG and an MRI and is scheduled to see Dr. Bahena at the end of December. She uses a cane for long distances and when feeling tired. She reports that sitting down for about five minutes alleviates the numbness in her leg. She has not had any recent falls. Patient has a history of lower abdominal pain 9sometimes diarrhea or consipation) and is concerned about the effects of alcohol consumption on her liver. She had a CT scan of her abdomen in 2020, which showed no abnormalities. She is requesting a repeat CT scan to rule out any potential damage from alcohol consumption. Patient has a history of Tiffany's thyroiditis and is currently taking levothyroxine. She is concerned about the potential for developing additional autoimmune conditions. Patient has a history of rheumatoid arthritis and is currently being managed by Dr. Ramos. She has been recommended to undergo ultrasounds of both hands to evaluate for RA. She is hesitant to start any new medications for RA due to concerns about potential side effects. Patient reports a recent weight gain and is interested in discussing weight management options. She is currently taking Wellbutrin and is considering the addition of Contrave for weight loss. Patient reports a history of TMJ issues and is currently seeing a massage therapist and chiropractor for management. She is interested in discussing physical therapy options for TMJ. PAST MEDICAL HISTORY 06/27/2006: Abnormal mammogram, unspecified 07/04/2017: Acquired hypothyroidism No date: CAD (coronary artery disease) 07/25/2022: CAD (coronary artery disease) 08/01/2015: Calculus of gallbladder with chronic cholecystitis without obstruction 01/24/2014: Corns and callosities No date: Diarrhea 05/27/2015: Dysphagia Comment: feeling like food sits in bottom of esophagus if eats heavier than usual meal No date: Dysthymic disorder Comment: Depression (non-psychotic) 08/25/2014: Elevated antinuclear antibody (KELTON) level No date: Essential hypertension 07/25/2022: HTN (hypertension) No date: Internal hemorrhoids without mention of complication 07/2022: Left wrist sprain No date: Myalgia and myositis, unspecified Comment: FIBROMYALGIA No date: Obesity, unspecified Comment: Obesity No date: Obstructive sleep apnea Comment: DME [employer] No date: Osteoarthritis of multiple joints 02/20/2005: PAIN LEG (Right) 11/23/2006: Temporomandibular joint disorders, unspecified Current Outpatient Medications Medication Sig rosuvastatin (CRESTOR) 5 mg tablet Take 1 tablet by mouth every Saturday, Saturday, and Saturday. traZODone (DESYREL) 50 mg tablet Take 50 mg by mouth daily at bedtime. Takes 1/2 tablet at bedtime. gabapentin (NEURONTIN) 400 mg capsule Take 2 capsule 60-90 minutes before bedtime. hydroCHLOROthiazide 25 mg tablet Take 1 tablet by mouth every afternoon. levothyroxine (SYNTHROID) 25 mcg tablet Take 1 tablet by mouth once daily. acetaminophen (TYLENOL EXTRA STRENGTH) 500 mg tablet Take 1,000 mg by mouth every 8 hours as needed for pain. colestipol (COLESTID) 1 gram tablet Take 1-2 tablets by mouth once daily. As directed diclofenac (VOLTAREN ARTHRITIS PAIN) 1 % topical gel Apply 2 g to affected area four times daily as needed (wrist pain). acetaminophen (TYLENOL 8 HOUR ORAL) Take by mouth. BIPAP losartan (COZAAR) 100 mg tablet Take 100 mg by mouth once daily. aspirin 81 mg chewable tablet Take 81 mg by mouth once daily. ubidecarenone Q-10 (COENZYME Q-10) 10 mg cap Take 100 mg by mouth two times a day. hyperimmune colostrum, bovine 200 mg tab Take 2 tablets by mouth twice daily. (Patient taking differently: Take 200 mg by mouth two times a day.) Ca/D3/mag ox/zinc/commercial helicopter pilot/jose/bor (CALCIUM 600-D3 PLUS, MAG-ZINC, ORAL) turmeric/turmeric ext/pepr ext (TURMERIC-TURMERIC EXT-PEPPER) 900-100-5 mg cap CPAP Bipap 17/13 cm H2O, Heat Humidity, suitable mask, [employer], opt [place], G47.33. cholecalciferol (VITAMIN D3) 2,000 unit tablet Take 2,000 Units by mouth once daily. FLUoxetine HCl (PROZAC) 40 mg capsule Take 1 capsule by mouth once daily. (Dr. Garcia) CYANOCOBALAMIN, VITAMIN B-12, (VITAMIN B-12 ORAL) Take by mouth. buPROPion XL (WELLBUTRIN XL) 150 mg 24 hr tablet Take one(1) tablet daily. Biotin (NAIL-EX) 2,500 mcg ORAL Tab Take 1,000 mcg by mouth once daily. DAILY VITAMIN TAB Take one(1) tablet daily. ZINC ORAL Take by mouth. (Patient not taking: Reported on 12/16/2023) OTC NUTRITIONAL SUPPLEMENT Take 2 capsules by mouth twice daily. Fibro Care (Patient not taking: Reported on 12/16/2023) Jjoht-7-ANF-EPA-Fish Oil 300-1,000 mg cap Take 1,000 mg by mouth twice daily. (Patient not taking: Reported on 12/16/2023) No current facility-administered medications for this visit. ALLERGIES No Known Allergies FAMILY HISTORY Problem Relation Age of Onset Diabetes Mother late in life at 75 Stroke Mother x3 Cancer Father myeloma (from immunesuppressants) at age 80 of chf and perf. bowel other (ESRD) Father had sudden renal failure; had kidney transplant at 68yo Thyroid Brother Hypertension Son No Known Problems Son Anesthesia Problems No Family History Blood Clots No Family History Clotting Disorder No Family History Social History Tobacco Use Smoking status: Never Smokeless tobacco: Never Vaping Use Vaping status: Never Used Substance Use Topics Alcohol use: Yes Alcohol/week: 18.0 standard drinks of alcohol Types: 18 Glasses of wine per week Comment: wine with supper Drug use: No Review of Systems Objective BP 124/74 Pulse 84 Temp 37.1 C (98.8 F) Resp 18 Ht 165.5 cm (5' 5.16) Wt 117.7 kg (259 lb 7.7 oz) SpO2 96% BMI 42.97 kg/m Physical Exam Vitals reviewed. Constitutional: Appearance: Normal appearance. She is well-developed. She is obese. HENT: Head: Normocephalic and atraumatic. Right Ear: Tympanic membrane and external ear normal. Left Ear: Tympanic membrane, ear canal and external ear normal. Nose: Nose normal. Mouth/Throat: Mouth: Mucous membranes are moist. Eyes: Conjunctiva/sclera: Conjunctivae normal. Pupils: Pupils are equal, round, and reactive to light. Neck: Thyroid: No thyromegaly. Vascular: No carotid bruit. Cardiovascular: Rate and Rhythm: Normal rate and regular rhythm. Pulses: Normal pulses. Heart sounds: Normal heart sounds. No murmur heard. No friction rub. No gallop. Pulmonary: Effort: Pulmonary effort is normal. Breath sounds: Normal breath sounds. Abdominal: General: Bowel sounds are normal. There is no distension. Palpations: Abdomen is soft. There is no mass. Tenderness: There is no abdominal tenderness. Musculoskeletal: General: No deformity. Normal range of motion. Right lower leg: No edema. Left lower leg: No edema. Lymphadenopathy: Cervical: No cervical adenopathy. Skin: General: Skin is warm and dry. Coloration: Skin is not jaundiced or pale. Findings: No rash. Neurological: General: No focal deficit present. Mental Status: She is alert and oriented to person, place, and time. Cranial Nerves: No cranial nerve deficit. Sensory: No sensory deficit. Motor: No abnormal muscle tone. Coordination: Coordination normal. Deep Tendon Reflexes: Reflexes normal. Psychiatric: Attention and Perception: Attention and perception normal. Mood and Affect: Mood and affect normal. Speech: Speech normal. Behavior: Behavior normal. Thought Content: Thought content normal. Cognition and Memory: Cognition and memory normal. Judgment: Judgment normal. Latest Ref Rng 02/09/2023 07/11/2023 11/15/2023 Protein, Total 6.3 - 8.0 g/dL 6.9 7.1 Albumin 3.9 - 4.9 g/dL 3.9 4.4 Calcium 8.5 - 10.2 mg/dL 9.9 Bilirubin, Total 0.2 - 1.3 mg/dL 0.3 0.4 Alkaline Phosphatase 34 - 123 U/L 95 89 AST 13 - 35 U/L 30 20 ALT 7 - 38 U/L 32 21 Glucose 74 - 99 mg/dL 111 (H) BUN 7 - 21 mg/dL 21 Creatinine 0.58 - 0.96 mg/dL 0.66 Sodium 136 - 144 mmol/L 135 (L) Potassium 3.7 - 5.1 mmol/L 4.3 Chloride 97 - 105 mmol/L 99 CO2 22 - 30 mmol/L 27 Anion Gap 9 - 18 mmol/L 9 eGFR >=60 mL/min/1.73m 95 WBC 3.70 - 11.00 k/uL 4.96 RBC 3.90 - 5.20 m/uL 4.69 Hemoglobin 11.5 - 15.5 g/dL 14.3 Hematocrit 36.0 - 46.0 % 42.6 MCV 80.0 - 100.0 fL 90.8 MCH 26.0 - 34.0 pg 30.5 MCHC 30.5 - 36.0 g/dL 33.6 RDW-CV 11.5 - 15.0 % 12.9 Platelet Count 150 - 400 k/uL 331 MPV 9.0 - 12.7 fL 9.2 Absolute nRBC <0.01 k/uL <0.01 Cholesterol, Total <200 mg/dL 181 186 Triglyceride <150 mg/dL 85 96 HDL Cholesterol >39 mg/dL 70 66 Non HDL Cholesterol <130 mg/dL 111 120 Fasting Time hrs 11 11 VLDL Cholesterol <30 mg/dL 17 19 TC:HDL Ratio <5.10 2.59 2.82 LDL Cholesterol <100 mg/dL 94 101 (H) LDL:HDL Ratio <2.54 1.34 1.53 Bilirubin, Conjug <0.2 mg/dL <0.2 TB Nil <=8.00 IU/mL 0.02 TB1 Ag minus Nil <0.35 IU/mL 0.00 TB2 Ag minus Nil <0.35 IU/mL 0.00 TB Result Negative Mitogen minus Nil >=0.50 IU/mL >9.98 TB Interpretation Infection with M. tuberculosis complex is unlikely. If latent tuberculosis infection is highly suspected, a negative result does not rule out the infection. Specimens from immunocompromised patients and those <5 years of age may show false negative results. In case of a contact investigation, please repeat 8-12 weeks after a known exposure. CCP Antibody IgG Qualitative Negative Negative CCP Antibody, IgG <20 Units <15 Hep B Surface Ab, Qual Negative Hep B Surf Ab Quant mIU/mL <8.00 THYROID PEROXIDASE ANTIBODY <5.6 IU/mL 9.4 (H) Thyroglobulin, LC-MS/MS 1.3 - 31.8 ng/mL 20.7 Magnesium 1.7 - 2.3 mg/dL 1.9 Vitamin D 25 Hydroxy 31.0 - 80.0 ng/mL 41.5 TSH 0.270 - 4.200 mIU/L 0.990 Free T4 0.9 - 1.7 ng/dL 1.3 WSR 0 - 20 mm/hr 15 CRP <0.9 mg/dL <0.3 Rheumatoid Factor <16 IU/mL 26 (H) G-6-PD Quantitative 9.8 - 15.5 U/g Hb 13.0 Hep C Antibody IA Negative Negative Hep B Surface Ag Negative Negative Hep B Core Ab, Total Negative Negative Legend: (H) High (L) Low Assessment and Plan--See assessment and plan for other issues addressed below. Priscilla Ramos is a 68 year old female here for a Medicare wellness visit. Medicare Health Risk Assessment General Health Good Exercise: Minutes/Day 60 min Exercise: Days/Week 1 day Alcohol: Daily Use 4 or more times a week Alcohol: Drinks/Day 3 or 4 Alcohol: 6 or more drinks Less than monthly Feel off balance Yes (Working on left leg numbness issues with Dr. Bahena) Concerns: Teeth/Dentures No Concerns: Sexual function No Troubled by feelings None of the above (Manages with psychiatrist) Frequency: Eating healthy diet Nearly every day ADLs requiring help None of the above Safety precautions in home/vehicle Yes Smoke, vape, chews tobacco No Difficulty hearing No Difficulty seeing No Current Providers Specialists: I have reviewed specialist-related care of the patient in the medical record. Outside specialists seen: Luna Walker ([facility]), Dr. Gaming ([facility]) , Dr. Elkins (Psychiatrist at [place]) Medical/Family history review Reviewed and updated problem list, medical/surgical/family/social history, medications, and allergies. Opioid use review Opioid Medications (last 90 days) No data to display Anxiety/Depression screening PHQ-2 Score: 2 (Lower risk for depression) ELIZABETH-7 Score: 6 (Mild Anxiety) Recommendation: continuing current treatment plan Cognitive screening Mini Cog Score: 5 Cognitive screening reviewed and No further action needed (score 3-5). Functional Observation Was the patient's Timed Up & Go test unsteady or ? 12 seconds? No Advance Care Planning Surrogate decision maker and/or advance care plan documented Has HCDPOA and LW-- can drop off or upload. Surrogate decision makers are two sons Measurements BP 124/74 Pulse 84 Temp 37.1 C (98.8 F) Resp 18 Ht 165.5 cm (5' 5.16) Wt 117.7 kg (259 lb 7.7 oz) SpO2 96% BMI 42.97 kg/m Vision Screening: Follows with optometry/ophthalmology Assessment/Plan Medicare annual wellness visit, subsequent (Z00.00) - Counseled on healthy diet and regular exercise - Fall avoidance information provided - Personalized prevention plan provided Medicare annual wellness visit, subsequent - Completed Medicare annual wellness visit. - Discussed advanced directives; patient has a living will and healthcare proxy, with her two sons, Meño and Chase, as designated contacts. - Patient follows up regularly with gallery or museum curator Dr. Sweeney and corrugator operator Dr. Gaming. - Advised on general health maintenance: balanced diet, regular exercise, adequate hydration, and fall prevention. - No recent falls reported; uses a cane for long distances due to leg numbness. - Scheduled follow-up appointment in May. Acquired hypothyroidism - Stable on current levothyroxine 25 mcg daily. - Recent TSH level was 0.99 mIU/L, and T4 level was within normal range. - Ordered standing thyroid function tests (TSH, T3, T4) to be performed every 2 months if needed. Vitamin D deficiency - Ordered vitamin D level to be checked at next follow-up. Class 3 severe obesity due to excess calories with body mass index (BMI) of 40.0 to 44.9 in adult, unspecified whether serious comorbidity present (HCC) - Current weight 259 lbs, BMI 42.5. - Discussed dietary modifications, including portion control and reducing intake of processed foods and alcohol. - Patient expressed interest in Contrave for weight management; discussed potential benefits and insurance coverage issues. - Advised to set reminders to stand and move regularly during sedentary activities. TMJ (temporomandibular joint syndrome) - Symptoms managed with monthly massage therapy and biweekly chiropractic adjustments. - Discussed potential referral for physical therapy if symptoms worsen. Encounter for screening examination for other mental health and behavioral disorders - Patient experiences anxiety and depression, managed by psychiatrist Dr. Elkins with regular follow-ups every 3-4 months. - Current medication regimen deemed effective; no adjustments needed at this time. Emilee Condon MD documented in this encounter [facility] 12-03-2023 Telephone encounter Note Called patient to verify recent mri lumbar were completed and of upcoming follow up appointment to discuss results on 12/06/23. Patient had NO questions at this time. [facility] 12-03-2023 Miscellaneous Notes Called patient to verify recent mri lumbar were completed and of upcoming follow up appointment to discuss results on 12/06/23. Patient had NO questions at this time. documented in this encounter [facility] 11-28-2023 Telephone encounter Note Prescription Refill Information The patient has been identified by name and date of : Yes Caregiver verified no other encounters exist for this prescription request: Yes Caregiver confirmed with patient/requestor that no other refills are due, in the near future, with this provider at this time: Yes The last office visit in the department: 06/12/23 Does the patient have a future office visit with this provider/department: Yes Requested Prescriptions Pending Prescriptions Disp Refills rosuvastatin (CRESTOR) 5 mg tablet 90 tablet 3 Sig: Take 1 tablet by mouth daily at bedtime. As directed Sophie Navarro LPN November 28, 2023 12:[address] [facility] 11-28-2023 Miscellaneous Notes Prescription Refill Information The patient has been identified by name and date of : Yes Caregiver verified no other encounters exist for this prescription request: Yes Caregiver confirmed with patient/requestor that no other refills are due, in the near future, with this provider at this time: Yes The last office visit in the department: 06/12/23 Does the patient have a future office visit with this provider/department: Yes Requested Prescriptions Pending Prescriptions Disp Refills rosuvastatin (CRESTOR) 5 mg tablet 90 tablet 3 Sig: Take 1 tablet by mouth daily at bedtime. As directed Sophie Navarro LPN November 28, 2023 12:40 PM documented in this encounter [facility] 11-27-2023 History of Present illness Narrative Radiology Service Progress Note PATIENT NAME: Priscilla Ramos DATE OF SERVICE: November 27, 2023 TIME: 11:32 AM PATIENT IDENTITY VERIFICATION COMPLETED USING TWO (2) IDENTIFIERS: Name and Date of confirmed by patient verbally. FALL SCREENING: Has the patient had 2 falls in the last year or 1 fall with injury or currently using an Ambulatory Assistive Device (Walker, Cane, Wheelchair, Crutches, etc.)? No PATIENT GENDER DATA: Female. status: : No status: NO. PATIENT RELEVANT IMPLANT DATA REVIEWED: Yes PATIENT PRESENTS WITH AN IMPLANTABLE OR ATTACHED COMPENSATION AND BENEFITS ADMINISTRATOR: No RADIOLOGY DEPARTMENT: MR; Exam(s) Completed: Spine: Lumbar spine PERIPHERAL IV DATA: Not applicable SIGNED BY: RANDI Jules November 27, 2023 11:32 AM documented in this encounter [facility] 11-27-2023 Note [facility] 11-25-2023 Telephone encounter Note Noted. Prince Sebastian APRN.CNP [facility] Work Phone: 11-25-2023 Miscellaneous Notes Noted. Romulo, Prince West APRN.CNP Patient notified will let you know of a decision via [employer]. Attempted to reach patient. No answer. LMTCB. PSR please relay message as written below. Please document and route back to our pool. Thank you Eun Please call and inform the patient that the Rheumatoid Factor was positive, which can be seen with Rheumatoid Arthritis. Her current joint symptoms could be due to inflammatory arthritis. We can start another penitentiary medication for this, called Sulfasalazine: This would be a number of pills you'd take twice daily. It does not increase your risk for infection. Potential side effects include GI upset, bone marrow suppression, and liver toxicity requiring routine lab monitoring. I still recommend that she have the US of the hand/wrist done to evaluate for active inflammation. Please let me know what she decides. If she is agreeable to starting the SSZ, I will send further information on SSZ via my chart. Thanks, Prince West APRN.CNP documented in this encounter [facility] 11-25-2023 Telephone encounter Note Patient notified will let you know of a decision via [employer]. [facility] 11-25-2023 Telephone encounter Note Attempted to reach patient. No answer. LMTCB. PSR please relay message as written below. Please document and route back to our pool. Thank you Eun [facility] 11-24-2023 Telephone encounter Note Please call and inform the patient that the Rheumatoid Factor was positive, which can be seen with Rheumatoid Arthritis. Her current joint symptoms could be due to inflammatory arthritis. We can start another penitentiary medication for this, called Sulfasalazine: This would be a number of pills you'd take twice daily. It does not increase your risk for infection. Potential side effects include GI upset, bone marrow suppression, and liver toxicity requiring routine lab monitoring. I still recommend that she have the US of the hand/wrist done to evaluate for active inflammation. Please let me know what she decides. If she is agreeable to starting the SSZ, I will send further information on SSZ via my chart. Thanks, Prince West APRN.WEIGHT TRAINING INSTRUCTOR [facility] 11-18-2023 Note Formatting of this n ote might be different from the original. November 18, 2023 PID: [id number] Priscilla Ramos [address] [place] [address] Dear Ms. Ramos, We are pleased to inform you that the results of your recent breast imaging exam on 11/15/2023 are normal. Breast tissue can be either dense or not dense. Dense tissue makes it harder to find breast cancer on a mammogram and also raises the risk of developing breast cancer. Your breast tissue is not dense. Talk to your healthcare provider about breast density, risks for breast cancer, and your individual situation. Early detection of cancer is very important. We also understand recommendations regarding breast cancer screening are controversial. Please discuss with your primary care provider which strategy is best for you and whether a mammogram is right for you. Your imaging studies and report will be kept on file at [facility] as part of your permanent medical record and are available for your continuing care. Thank you for allowing us to help in meeting your health care needs. Sincerely, Dr. Carver Interpreting Radiologist [facility] (Normal over 40) [facility] 11-18-2023 Miscellaneous Notes November 18, 2023 PID: [id number] Priscilla Ramos [address] [place] [address] Dear Óscar, We are pleased to inform you that the results of your recent breast imaging exam on 11/15/2023 are normal. Breast tissue can be either dense or not dense. Dense tissue makes it harder to find breast cancer on a mammogram and also raises the risk of developing breast cancer. Your breast tissue is not dense. Talk to your healthcare provider about breast density, risks for breast cancer, and your individual situation. Early detection of cancer is very important. We also understand recommendations regarding breast cancer screening are controversial. Please discuss with your primary care provider which strategy is best for you and whether a mammogram is right for you. Your imaging studies and report will be kept on file at [facility] as part of your permanent medical record and are available for your continuing care. Thank you for allowing us to help in meeting your health care needs. Sincerely, Dr. Carver Interpreting Radiologist [facility] (Normal over 40) documented in this encounter [facility] 11-15-2023 History of Present illness Narrative Radiology Service Progress Note PATIENT NAME: Priscilla Ramos DATE OF SERVICE: November 15, 2023 TIME: 9:27 AM PATIENT IDENTITY VERIFICATION COMPLETED USING TWO (2) IDENTIFIERS: Name and Date of confirmed by patient verbally. FALL SCREENING: Has the patient had 2 falls in the last year or 1 fall with injury or currently using an Ambulatory Assistive Device (Walker, Cane, Wheelchair, Crutches, etc.)? No PATIENT GENDER DATA: Female. status: : No status: NO. PATIENT RELEVANT IMPLANT DATA REVIEWED: Not Applicable PATIENT PRESENTS WITH AN IMPLANTABLE OR ATTACHED COMPENSATION AND BENEFITS ADMINISTRATOR: No RADIOLOGY DEPARTMENT: Mammography PERIPHERAL IV DATA: Not applicable SIGNED BY: Kwasi Cazares November 15, 2023 9:27 AM documented in this encounter [facility] 11-15-2023 Note [facility] 11-14-2023 Telephone encounter Note Called patient to verify recent EMG were completed and of upcoming follow up appointment to discuss results on 12/06/23. Patient had NO questions at this time. [facility] 11-14-2023 Miscellaneous Notes Called patient to verify recent EMG were completed and of upcoming follow up appointment to discuss results on 12/06/23. Patient had NO questions at this time. documented in this encounter [facility] 11-13-2023 Note [facility] 11-13-2023 History of Present illness Narrative UNIVERSAL PROTOCOL / SAFETY CHECKLIST Procedure to be Performed: EMG Sign In: A Moment of CARE was completed. Personnel directly involved with the procedure wore the appropriate PPE (Personal Protective Equipment). Patient/Surrogate Stated/Verified: PATIENT VERIFIED(optional for EMERGENT procedures): Patient name, Date of , Relevant allergies, and The intended procedure Time Out Communication: Intended patient and procedure match the source documents. Correct side/site marked and visible. Sign Out: SIGN OUT (optional for EMERGENT procedures): Post-procedure follow-up management communicated and Plan of Care Visit completed when applicable. Vianey Galindo MD documented in this encounter [facility] 10-18-2023 History of Present illness Narrative Images from the original note were not included. Established patient visit CC: lumbar spine symptoms Last Seen: 01/30/2023 Interval History: Patient here today for follow up and repeat evaluation. Here after completion of physical therapy. Underwent 22 sessions from 02/07/2023 - 05/22/2023. She continues regular HEP. She states symptoms briefly improved with PT but persist and seem to have recently been worsening. She states that she continues to have intermittent left leg weakness and numbness. Feels like the entire left leg is involved. Can happen once per week to once per month but has happened twice this week. Typically happens while standing and has to sit down. Resolves after about 5 minutes of sitting. Happened 07/2022 and caused her to fall and fracture her wrist. Has baseline low back pain but this is typically tolerable and manageable. Her main concern is the leg numbness as she is concerned about falling. Now takes cane with her to use as needed for support. Feels like recent episode this week was due to prolonged sitting and driving after trip to [place]. Continues to deny bowel/bladder incontinence, denies fever, denies night pain,denies unintentional weight loss, denies clumsiness of hands or dropping things, denies clumsiness of feet, tripping or falling. Denies any constitutional or myelopathic symptomatology. No interval change in PMHX, PSHX, Allergies, FamHx or ROS. PAIN EVALUATION 10/12/2023 0753 10/18/2023 1443 Pain Level: 2 4 Pain Location: Back-Lower Back-Lower Description: Numbness Aching Duration Amount of Time: 5 -- Months Duration Units: Minutes Months Frequency: Intermittent Continuous Intervention/Comfort measure: Other: See comment Medication Comments: Sitting down until the numbness passes Tylenol Patient Entered Questionnaires 01/26/2023 10/12/2023 Spine Questions Pain Location: Lower back None, my primary complaint is not pain-related Pain Duration: 1 to 5 years Pain over last 6 months: Less than half the days in the past 6 months Symptoms from neck/cervical spine: Yes No Employment Status: Retired Retired Involved in law suit/legal claim: No 01/26/2023 10/12/2023 Spine Red Flags Any type of cancer: No No Unexplained fever: No No Bowel or bladder disfunction: No No Unintentional weight loss: No No Osteoporosis: No No 01/26/2023 Neck Questionnaires Benzel Modified SEUN Score 13 (Moderate Myelopathy Symptoms) 02/04/2023 Low Back Pain Questionnaires STarT Risk Score 3 (Medium risk for prolonged disability) STarT Distress Score 2 STarT Total Score 5 PROMIS Score Percentiles 05/26/2023 09/12/2023 10/12/2023 Physical Health Physical Function Percentile 16* 18* Sleep Percentile 50 62 Fatigue Percentile 8 24* Pain Interference Percentile 12 03/01/2021 01/26/2023 10/12/2023 PROMIS SOCIAL ROLE SCORE Social Role Satisfaction Percentile 31 31 31 01/26/2023 04/02/2023 09/12/2023 PROMIS Global Health Scale Physical Health Percentile 10 10 10 10 10 Mental Health Percentile 26* 19* 19* 43 43 Percentiles provide an indication of how the patient's score ranks in relation to the general population. Higher percentile rankings indicate better function/quality of life. 50th percentile is the average of the general population and indicates half of respondents had a worse score. Depression Screenin01/26/2023 05/26/2023 10/12/2023 PHQ-9 Score 6 6 4 10/12/2023 05/26/2023 01/26/2023 PHQ-9 Self Harm Question 9 Not at all Not at all Not at all PHQ-9 Self-Harm (Item 9) response options: 0 Not at all 1 Several days 2 More than half the days 3 Nearly every day PHQ-9 Levels: 0-4 Minimal depression 5-9 Mild depression 10-14 Moderate depression 15-19 Moderately severe depression 20-27 Severe depression OBJECTIVE: PHYSICAL EXAM There were no vitals taken for this visit. General: Patient in no apparent distress, well appearing Lungs: No labored breathing, symetric chest excursion, no tachypnia Heart: No lower limb edema, no cyanosis Gait: Normal ROM: Lumbar and cervical ROM intact Neuro: Strength intact bilateral upper and lower limbs Sensation: Intact bilateral upper and lower limbs Reflexes: Intact bilateral upper and lower limbs Muscular: No tenderness to palpation of bilateral Lumbar paraspinal muscles Skin: Visualized skin of head, neck, trunk, and extremities dry, intact, and without lesions. Hip/SIJ maneuvers: negative Data Review: Lumbar MRI 2020: L2-L3: Severe spinal canal stenosis secondary to disc bulging, dorsal hypertrophic endplate spurring, dorsal epidural fat and hypertrophic degenerative facet arthrosis. No significant foraminal stenosis. L3-L4: Severe spinal canal stenosis secondary to disc bulging, dorsal hypertrophic spurring, dorsal epidural fat and hypertrophic right greater than left degenerative facet arthrosis. Moderate to severe effacement of the right subarticular zone. Moderate bilateral foraminal stenosis. L4-L5: Severe spinal canal stenosis secondary to disc bulging/disc uncovering, dorsal hypertrophic endplate degenerative changes, dorsal epidural fat, and hypertrophic left greater the right degenerative facet arthrosis. Severe effacement of left greater than right subarticular zones. Severe right and moderate left foraminal stenosis. L5-S1: Mild spinal canal stenosis secondary to disc bulging. Advanced hypertrophic degenerative facet arthrosis. Mild left greater than right foraminal stenosis. ASSESSMENT: (M48.062) Spinal stenosis of lumbar region with neurogenic claudication (primary encounter diagnosis) Priscilla Ramos presents for follow up. Pain is tolerable but her primary complaint is her intermittent numbness and weakness of her entire left leg which occurs while standing and makes her concerned about falling since she has fallen in the past. Numbness resolves after sitting for 5 minutes. She has done extensive recent physical therapy as above but symptoms persist. MRI from 2020 with severe canal stenosis at multiple levels. We ordered updated MRI of lumbar spine and EMG to further evaluate. If symptoms become severe enough or she experiences progressive neurologic symptoms she could discuss what surgery would entail with a spine surgeon. Renny Roach MD Spine Medicine Fellow, PGY-5 I examined the patient and discussed case, diagnostics and treatment plan with Renny Roach MD who initially evaluated the patient. I agree with treatment plan and recommendations. Patient dealing with numbness and tingling along the left entire lower limb. She has completed extensive conservative treatment including physical therapy for many months without any improvement in her symptoms. Prior imaging was reviewed from 2020 which showed evidence of multilevel central canal stenosis. In addition to lumbar MRI we will schedule patient for an EMG left lower limb to rule out peripheral mononeuropathy or potential femoral neuropathy as an explanation for her leg weakness and falls due to leg giving way. At this time we will schedule patient for lumbar MRI and we will discuss further diagnostic and treatment recommendations in the future. Jovany Bahena DO documented in this encounter [facility] 09-17-2023 History of Present illness Narrative Radiology Service Progress Note PATIENT NAME: Priscilla Ramos DATE OF SERVICE: September 17, 2023 TIME: 3:34 PM PATIENT IDENTITY VERIFICATION COMPLETED USING TWO (2) IDENTIFIERS: Name and Date of confirmed by patient verbally. FALL SCREENING: Has the patient had 2 falls in the last year or 1 fall with injury or currently using an Ambulatory Assistive Device (Walker, Cane, Wheelchair, Crutches, etc.)? No PATIENT GENDER DATA: Female. status: : No status: N/A PATIENT RELEVANT IMPLANT DATA REVIEWED: Not Applicable PATIENT PRESENTS WITH AN IMPLANTABLE OR ATTACHED COMPENSATION AND BENEFITS ADMINISTRATOR: No RADIOLOGY DEPARTMENT: General X-ray: Exam(s) Completed: Upper Extremity X-Ray(s): Hand, bilateral PERIPHERAL IV DATA: Not applicable SIGNED BY: RT Cathy(R) September 17, 2023 3:34 PM documented in this encounter [facility] 09-17-2023 History of Present illness Narrative History: Priscilla Ramos is seen at the request of Dr. Emilee Condon. Priscilla Ramos, a 68 year old female, presents for evaluation of thickening feeling throat, more diff gulping glass of water, more diff hitting high notes in 2-3 mos. Denies difficulty swallowing solids, pain with swallowing, hoarseness, shortness of breath, cough, hemoptysis, ear pain, throat clearing, post-nasal drip, fever, chills, weight loss. No history of trauma. The patient does not smoke. On CPAP. No GERD. Drinks coffee. H/o hypothyroid. On synthroid. Thyroid US 03/14: multiple nods. 1.6 x 1.3 x 1.2 cm R mid nod - FNA 04/25/23: benign. TSH 07/11/23: 0.99. CBC 07/11/23: wnl. PAST MEDICAL HISTORY Diagnosis Date Abnormal mammogram, unspecified 06/27/2006 Acquired hypothyroidism 07/04/2017 CAD (coronary artery disease) CAD (coronary artery disease) 07/25/2022 Calculus of gallbladder with chronic cholecystitis without obstruction 08/01/2015 Corns and callosities 01/24/2014 Diarrhea Dysphagia 05/27/2015 feeling like food sits in bottom of esophagus if eats heavier than usual meal Dysthymic disorder Depression (non-psychotic) Elevated antinuclear antibody (KELTON) level 08/25/2014 Essential hypertension HTN (hypertension) 07/25/2022 Internal hemorrhoids without mention of complication Left wrist sprain 07/2022 Myalgia and myositis, unspecified FIBROMYALGIA Obesity, unspecified Obesity Obstructive sleep apnea DME [place] Osteoarthritis of multiple joints PAIN LEG (Right) 02/20/2005 Temporomandibular joint disorders, unspecified 11/23/2006 PAST SURGICAL HISTORY Procedure Laterality Date ARTHRP KNE CONDYLE&PLATU MEDIAL&LAT COMPARTMENTS 09/2011 right DELIVERY ONLY , low cervical DELIVERY ONLY , low cervical COLONOSCOPY 08/01/2022 repeat in 5 years COLONOSCOPY FLX DX W/COLLJ SPEC WHEN PFRMD 07/29/2017 Colonoscopy COLONOSCOPY W/BIOPSY SINGLE/MULTIPLE 02/10/2007 LAPS SURG CHOLECYSTECTOMY W/CHOLANGIOGRAPHY 08/17/2015 LEFT HEART CATH,PERCUTANEOUS PAST SURGICAL HISTORY OF foot-left PAST SURGICAL HISTORY OF left foot - no hardware STEREOTACTIC CORE BIOPSY 07/04/2006 UOQ RIGHT AVANI W/WO REMOVAL TUBE OVARY 1999 Hysterectomy, AVANI ovaries remain PE: Alert; oriented; well-developed; no apparent distress. Normal voice; normal communication. Eyes: EOMI, pupils symmetric and reactive bilaterally. Nose: patent, normal mucosa, no congestion, no rhinorrhea. Oral cavity, oropharynx: No ulcerative or mass lesions, tongue midline, palate elevates symmetrically, tongue base and floor of mouth soft. Neck: nontender, no lymphadenopathy or masses. Thyroid: no masses. Face: symmetric, sinuses nontender, skin without lesions. Salivary glands: normal size, nontender, no masses. Ears: EACs free of lesions. TMs clear and mobile. 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 Procedure: Flexible laryngoscopy. Indication: Thick feeling in throat. R/o lesion, infection. Description of procedure: Neosynephrine/xylocaine was sprayed into the patient's nose. A flexible laryngoscope was passed through the patient's nose. The nasopharynx was free of ulcerative or mass lesions. The hypopharynx was free of ulcerative or mass lesions. The larynx was free of ulcerative or mass lesions. Normal bilateral vocal cord mobility. Assessment/Plan: Thick feeling in throat. Reassured no apparent lesion, infection. Rec min coffee, hydration, humidification. F/up prn. CCL [place] Medical Decision Making: Problems: Low: Acute, uncomplicated illness or injury Risk: Low: Low risk from testing/treatment Medical Decision Making Level: 3 - Low documented in this encounter [facility] 09-17-2023 Telephone encounter Note Called patient on September 17, 2023 at 8:50 AM to schedule their MSK US exam. Pt declined to schedule at the time of the call. She will call the [facility]K US department back when she would like to schedule her MSK US exam. [facility] 09-17-2023 Miscellaneous Notes Called patient on September 17, 2023 at 8:50 AM to schedule their MSK US exam. Pt declined to schedule at the time of the call. She will call the MSK US department back when she would like to schedule her MSK US exam. Called patient on September 13, 2023 at 4:31 PM to schedule their MSK US exam. No answer, left VM, 1st attempt. Visit Type: MSK SYN Visit Length: 45, 50 OR 60 MINUTES Order Name/Protocol: US HAND/WRIST SYNOVIAL SCREEN RT & LT Preferred Provider: N/A Comment: N/A Location: ANY FACILITY Slot held: N/A documented in this encounter [facility] 09-13-2023 Telephone encounter Note Called patient on September 13, 2023 at 4:31 PM to schedule their MSK US exam. No answer, left VM, 1st attempt. [facility] 09-13-2023 Telephone encounter Note Visit Type: MSK SYN Visit Length: 45, 50 OR 60 MINUTES Order Name/Protocol: US HAND/WRIST SYNOVIAL SCREEN RT & LT Preferred Provider: N/A Comment: N/A Location: ANY FACILITY Slot held: N/A [facility] 09-13-2023 Telephone encounter Note US HAND/WRIST SYNOVIAL SCREEN LEFT (Order #[id number]) on 09/13/23 US HAND/WRIST SYNOVIAL SCREEN RIGHT (Order #[id number]) on 09/13/23 [facility] 09-13-2023 Miscellaneous Notes US HAND/WRIST SYNOVIAL SCREEN LEFT (Order #[id number]) on 09/13/23 US HAND/WRIST SYNOVIAL SCREEN RIGHT (Order #[id number]) on 09/13/23 documented in this encounter [facility] 09-13-2023 History of Present illness Narrative Follow up for inflammatory arthritis. HPI: To review, Priscilla Ramos is a 68 year old female (goes by [employer]) - With longstanding fibromyalgia for several years, diagnosed sometime in the mid-to-late . - In , had a R TKA - Around /, Dr. Byrd diagnosed with arthritis (unsure of a more specific diagnosis, unsure if osteo vs inflammatory). Had pain in the shoulders, neck and mid>low back at that time. Started on HCQ and tramadol. Unsure if either has helped with the pain which has progressed over time. Unsure if she was on oral steroids in past. - In , reported increased pain in the hands/fingers so advised to add MTX which she deferred. - In Nov, reported pain in the MCPs and PIPs. No pain in the wrists or DIPs. Eases with activity. Worse in morning. Advised to taper off tramadol - In Jan, reported 50% improvement in joint stiffness with HCQ - In September, reported concern about potential for easy sunburn and skin issues with HCQ. Was advised she could hold it for 2 weeks to see if any improvement in itchy scalp. - In Jan, reported that stopping HCQ helped with skin issues. No change in joint symptoms without HCQ. Referred to PT for shoulder pain which helped per May visit - In July, s/p fall resulting in L wrist fragility fx. Advised starting alendronate (vs reclast), she declined both - at [facility], reports L knee OA s/p CSI 1.5 months ago with relief, took 2 weeks to kick in. Doing PT for low back pain/LLE numbness, seeing spine. - Started statin and BP med in the past year, outside [facility] provider - To have a thyroid nodule biopsied 04/18/23 - Last plaquenil eye exam normal in September (off HCQ) PAST MEDICAL HISTORY Diagnosis Date Abnormal mammogram, unspecified 06/27/2006 Acquired hypothyroidism 07/04/2017 CAD (coronary artery disease) CAD (coronary artery disease) 07/25/2022 Calculus of gallbladder with chronic cholecystitis without obstruction 08/01/2015 Corns and callosities 01/24/2014 Diarrhea Dysphagia 05/27/2015 feeling like food sits in bottom of esophagus if eats heavier than usual meal Dysthymic disorder Depression (non-psychotic) Elevated antinuclear antibody (KELTON) level 08/25/2014 Essential hypertension HTN (hypertension) 07/25/2022 Internal hemorrhoids without mention of complication Left wrist sprain 07/2022 Myalgia and myositis, unspecified FIBROMYALGIA Obesity, unspecified Obesity Obstructive sleep apnea D[facility] [place] Osteoarthritis of multiple joints PAIN LEG (Right) 02/20/2005 Temporomandibular joint disorders, unspecified 11/23/2006 PAST SURGICAL HISTORY Procedure Laterality Date ARTHRP KNE CONDYLE&PLATU MEDIAL&LAT COMPARTMENTS 09/2011 right DELIVERY ONLY , low cervical DELIVERY ONLY , low cervical COLONOSCOPY 08/01/2022 repeat in 5 years COLONOSCOPY FLX DX W/COLLJ SPEC WHEN PFRMD 07/29/2017 Colonoscopy COLONOSCOPY W/BIOPSY SINGLE/MULTIPLE 02/10/2007 LAPS SURG CHOLECYSTECTOMY W/CHOLANGIOGRAPHY 08/17/2015 LEFT HEART CATH,PERCUTANEOUS PAST SURGICAL HISTORY OF foot-left PAST SURGICAL HISTORY OF left foot - no hardware STEREOTACTIC CORE BIOPSY 07/04/2006 UOQ RIGHT AVANI W/WO REMOVAL TUBE OVARY 1999 Hysterectomy, AVANI ovaries remain ALLERGIES No Known Allergies INTERVAL HISTORY She is here for follow up. Reports numbness to R lower extremity. She saw spine last year and completed PT. PT helped somewhat. States she cannot make a fist with the R hand in the morning, which started a few months ago. No falls or fractures since the TEX. Sites of pain: low back, pain rated 3/10 Joint swelling: none EMS: yes, lasting 1-2 hours No recent infections. Tolerating meds. Answers submitted by the patient for this visit: Review of Systems Rheumatology (Submitted on 09/12/2023) Fever : No Recent unintentional weight change: No Eye pain: No Eye redness: No Vision Disturbance: No Eye Dryness: No Nosebleeds: No Sores in your mouth: No Trouble Swallowing: No Dry Mouth: No Chest pain: No Leg Swelling: No A cough: No Shortness of breath: No Pain with breathing: No Heartburn: No Abdominal pain: No Diarrhea: No Black tarry stools: No Blood in urine: No Pain or burning with urination: No Joint pain or stiffness: Yes Muscle weakness: No Muscle aches: Yes Joint swelling: No Morning Stiffness in Joints: Yes A rash: No Skin Color Changes: No Hair Loss: No Nail Changes: No Headaches: No Numbness: Yes Memory Loss: No Swollen Glands: No Current Outpatient Medications Medication Sig gabapentin (NEURONTIN) 400 mg capsule Take 2 capsule 60-90 minutes before bedtime. hydroCHLOROthiazide 25 mg tablet Take 1 tablet by mouth every afternoon. levothyroxine (SYNTHROID) 25 mcg tablet Take 1 tablet by mouth once daily. traZODone (DESYREL) 50 mg tablet Take 1 tablet by mouth daily at bedtime. acetaminophen (TYLENOL EXTRA STRENGTH) 500 mg tablet Take 1,000 mg by mouth every 8 hours as needed for pain. rosuvastatin (CRESTOR) 5 mg tablet Take 1 tablet by mouth daily at bedtime. As directed (Patient taking differently: Take 5 mg by mouth every Saturday, Saturday, and Saturday.) colestipol (COLESTID) 1 gram tablet Take 1-2 tablets by mouth once daily. As directed diclofenac (VOLTAREN ARTHRITIS PAIN) 1 % topical gel Apply 2 g to affected area four times daily as needed (wrist pain). acetaminophen (TYLENOL 8 HOUR ORAL) Take by mouth. BIPAP losartan (COZAAR) 100 mg tablet Take 100 mg by mouth once daily. aspirin 81 mg chewable tablet Take 81 mg by mouth once daily. ZINC ORAL Take by mouth. ubidecarenone Q-10 (COENZYME Q-10) 10 mg cap Take 50 mg by mouth once daily. OTC NUTRITIONAL SUPPLEMENT Take 2 capsules by mouth twice daily. Fibro Care Trqnp-7-EBD-EPA-Fish Oil 300-1,000 mg cap Take 1,000 mg by mouth twice daily. hyperimmune colostrum, bovine 200 mg tab Take 2 tablets by mouth twice daily. Ca/D3/mag ox/zinc/commercial helicopter pilot/jose/bor (CALCIUM 600-D3 PLUS, MAG-ZINC, ORAL) turmeric/turmeric ext/pepr ext (TURMERIC-TURMERIC EXT-PEPPER) 900-100-5 mg cap CPAP Bipap 17/13 cm H2O, Heat Humidity, suitable mask, Lif[employer] supplies, opt Chinstrap, G47.33. cholecalciferol (VITAMIN D3) 2,000 unit tablet Take 2,000 Units by mouth once daily. FLUoxetine HCl (PROZAC) 40 mg capsule Take 1 capsule by mouth once daily. (Dr. Garcia) CYANOCOBALAMIN, VITAMIN B-12, (VITAMIN B-12 ORAL) Take by mouth. buPROPion XL (WELLBUTRIN XL) 150 mg 24 hr tablet Take one(1) tablet daily. Biotin (NAIL-EX) 2,500 mcg ORAL Tab Take one(1) tablet daily. DAILY VITAMIN TAB Take one(1) tablet daily. No current facility-administered medications for this visit. FAMILY HISTORY Problem Relation Age of Onset Diabetes Mother late in life at 75 Stroke Mother x3 Cancer Father myeloma (from immunesuppressants) at age 80 of chf and perf. bowel other (ESRD) Father had sudden renal failure; had kidney transplant at 68yo Thyroid Brother Hypertension Son No Known Problems Son Anesthesia Problems No Family History Blood Clots No Family History Clotting Disorder No Family History SOCIAL HISTORY: Lives in [place]. 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 2 sons. 3 grandchildren Tobacco use: None Alcohol use: 2-3 glasses of wine/day Drug use: None PHYSICAL EXAM: BP 119/78 Pulse 106 Temp 36.8 C (98.3 F) (Temporal) Ht 163.1 cm (5' 4.2) Wt 117 kg (257 lb 15 oz) BMI 44.00 kg/m CONSTITUTIONAL: Well-appearing, in NAD. SKIN: No rash. No sclerodactyly, calcinosis, telangiectasias, digital ulcers, or skin thickening. EYES: No scleral icterus or conjunctivitis ENT and Mouth: External ears normal. RESPIRATORY: Normal breath sounds, clear to auscultation. CARDIOVASCULAR: Regular rate and rhythm, no murmurs or rubs EXTREMITIES/LYMPH: No edema bilaterally NEURO: Awake, alert and oriented MUSCULOSKELETAL: JOINT APPEARANCE: No erythema or warmth of any upper or lower extremity joint. RANGE OF MOTION: she is not able to make a complete fist with the R hand SWOLLEN JOINTS/SYNOVITIS: ? R wrist, B/l 2nd-4th mcp's TENDER JOINTS: L cmc joint No tenderness to spine *Nov Widespread Pain Index: 15 (0-19) Symptoms Severity Scale: 7 (0-12) WPI>7 and SS Scale>5 OR WPI 3-6 and SS Scale >9 consistent with fibromyalgia Labs reviewed and discussed with the patient: Latest Ref Rng 07/11/2023 Protein, Total 6.3 - 8.0 g/dL 7.1 Albumin 3.9 - 4.9 g/dL 4.4 Calcium 8.5 - 10.2 mg/dL 9.9 Bilirubin, Total 0.2 - 1.3 mg/dL 0.4 Alkaline Phosphatase 34 - 123 U/L 89 AST 13 - 35 U/L 20 ALT 7 - 38 U/L 21 Glucose 74 - 99 mg/dL 111 (H) BUN 7 - 21 mg/dL 21 Creatinine 0.58 - 0.96 mg/dL 0.66 Sodium 136 - 144 mmol/L 135 (L) Potassium 3.7 - 5.1 mmol/L 4.3 Chloride 97 - 105 mmol/L 99 CO2 22 - 30 mmol/L 27 Anion Gap 9 - 18 mmol/L 9 eGFR >=60 mL/min/1.73m 95 WBC 3.70 - 11.00 k/uL 4.96 RBC 3.90 - 5.20 m/uL 4.69 Hemoglobin 11.5 - 15.5 g/dL 14.3 Hematocrit 36.0 - 46.0 % 42.6 MCV 80.0 - 100.0 fL 90.8 MCH 26.0 - 34.0 pg 30.5 MCHC 30.5 - 36.0 g/dL 33.6 RDW-CV 11.5 - 15.0 % 12.9 Platelet Count 150 - 400 k/uL 331 MPV 9.0 - 12.7 fL 9.2 Absolute nRBC <0.01 k/uL <0.01 Magnesium 1.7 - 2.3 mg/dL 1.9 Vitamin D 25 Hydroxy 31.0 - 80.0 ng/mL 41.5 Component Latest Ref Rng & Units 08/21/2014 KELTON Negative Positive (A) KELTON Titer Negative 1:80 (A) KELTON Pattern Speckled STUDIES: *Nov MRI L-spine- Advanced lumbar spondylosis with multiple levels of severe spinal canal stenosis at L2-L3, L3-L4 and L4-L5. Up to severe foraminal stenosis on the right at L4-L5. IMPRESSION and PLAN: 1. Prior diagnosis of inflammatory arthritis: Pain in the wrists, MCPs, and PIPs per exam which could be due to inflammatory arthritis. HCQ ineffective, caused skin issues and no change since stopping in September aside from increased shoulder pain. With current joint stiffness to hands and possible synovitis on exam. - Continue monitoring off HCQ for now -will check labs and imaging today -will check US hand/wrists -will make recommendations pending lab and imaging results 2. Generalized osteoarthritis: Hands, spine, knee s/p R TKA in . Tapered off tramadol - Tylenol up to 3000mg/day as needed for pain which helps - Continue home PT exercises for shoulder/back - Consider alternative therapies such as lyrica if needed (can't try savella given she is currently on wellbutrin) - Avoid NSAIDs PO given elevated July Cr level - Handicap parking permit letter provided 3. Spinal stenosis/lumbar spondylosis: Per MRI - Continue spine clinic management 4. Fibromyalgia: Meets criteria based on WPI/SS scale score as above. - Aerobic exercise - Please refer to the fibromyalgia treatment guidelines as detailed in the Nov note for further management by PCP 5. Clinical osteoporosis: s/p July L wrist fragility fx. Declined starting alendronate (or reclast) - Continues to defer tx - Ca/vit D - Check DXA in Feb-order placed and she was reminded to schedule on the same machine as prior 6. General health maintenance: - Completed the covid vaccination series in July, moderna - Advised to continue follow-up with PCP for routine health maintenance and malignancy screening Follow-up in 5 months, or sooner if needed Thank you for allowing me to participate in the care of your patient. Prince West APRN.ISAURO documented in this encounter [facility] 09-12-2023 Instructions Prince West APRN.CNP - 09/12/2023 12:33 PM EDT Please schedule bone density test on the same machine as prior after 02/29/2024 Schedule ultrasound of hands/wrists documented in this encounter [facility] 07-25-2023 Miscellaneous Notes Sent [employer] message Sorry for delay in getting back to her. Labs were overall good. 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 Rest of thyroid labs within normal limits . Rest of labs almost all normal. LDL goal is <70 and is at 101. Highest I found was 129 in 2013. Would need higher dose or taking med more days to get LDL to goal, or tighter control of diet if any changes left to make. HDL is still good in 60s but was higher in 70s. If labs were fasting, then 111 is high--still prediabetic. Sodium is only slightly low ar 135--if drinking a lot of water without getting enough electrolytes in diet, can make this number low. 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 Patient asking PCP to advise on her recent lab results from 07/11/23. Please call patient at [phone]. Thank you. documented in this encounter [facility] 07-24-2023 Miscellaneous Notes See telephone encounter 07/24/23. Will close this encounter. Shama Tabares RN documented in this encounter [facility] 06-12-2023 History of Present illness Narrative This note was created using [employer]. Subjective Priscilla Ramos is a 68 year old female. Patient presents with: F/U 6 months SUBJECTIVE: Priscilla Ramos is a 68 year old year old lady here today for 6 month follow up appointment for review of medical conditions. Noted had biopsy of thyroid nodule. Benign. Will have follow up of other nodules as recommende.d Pain along sides of neck. Tender to palpation. Swallowing more difficult than before with drinking water. Feels a catch along lateral neck on left. Chronic pain in neck but attributes to chronic pains. More tension type headache upper neck and back of head Seeing chiropractor and massotherapy alternating every 2 weeks. Is a teeth gritter had bite guard for about 30 yeras. Needs new bite guard. Still grits teeth. Finished up PT for lumbar spine and spinal stenosis. Left thigh gets numb out of the blue. PT had helped till got COVID. BM 4 to 5 times a day. Used to be just 1 to 2 BM per day. On different BP med now. Still has Colestid from prior RXs since did not use routinely. Knows needs to lose weight. Back on Crestor 3 days a week. Did not tolerate daily. PAST MEDICAL HISTORY Diagnosis Date Abnormal mammogram, unspecified 06/27/2006 Acquired hypothyroidism 07/04/2017 CAD (coronary artery disease) CAD (coronary artery disease) 07/25/2022 Calculus of gallbladder with chronic cholecystitis without obstruction 08/01/2015 Corns and callosities 01/24/2014 Diarrhea Dysphagia 05/27/2015 feeling like food sits in bottom of esophagus if eats heavier than usual meal Dysthymic disorder Depression (non-psychotic) Elevated antinuclear antibody (KELTON) level 08/25/2014 Essential hypertension HTN (hypertension) 07/25/2022 Internal hemorrhoids without mention of complication Left wrist sprain 07/2022 Myalgia and myositis, unspecified FIBROMYALGIA Obesity, unspecified Obesity Obstructive sleep apnea [facility] Osteoarthritis of multiple joints PAIN LEG (Right) 02/20/2005 Temporomandibular joint disorders, unspecified 11/23/2006 Current Outpatient Medications Medication Sig levothyroxine (SYNTHROID) 25 mcg tablet Take 1 tablet by mouth once daily. traZODone (DESYREL) 50 mg tablet Take 1 tablet by mouth daily at bedtime. gabapentin (NEURONTIN) 400 mg capsule Take 2 capsule 60-90 minutes before bedtime. acetaminophen (TYLENOL EXTRA STRENGTH) 500 mg tablet Take 1,000 mg by mouth every 8 hours as needed for pain. rosuvastatin (CRESTOR) 5 mg tablet Take 1 tablet by mouth daily at bedtime. As directed (Patient taking differently: Take 5 mg by mouth every Saturday, Saturday, and Saturday.) colestipol (COLESTID) 1 gram tablet Take 1-2 tablets by mouth once daily. As directed diclofenac (VOLTAREN ARTHRITIS PAIN) 1 % topical gel Apply 2 g to affected area four times daily as needed (wrist pain). acetaminophen (TYLENOL 8 HOUR ORAL) Take by mouth. BIPAP losartan (COZAAR) 100 mg tablet Take 100 mg by mouth once daily. aspirin 81 mg chewable tablet Take 81 mg by mouth once daily. ZINC ORAL Take by mouth. ubidecarenone Q-10 (COENZYME Q-10) 10 mg cap Take 50 mg by mouth once daily. OTC NUTRITIONAL SUPPLEMENT Take 2 capsules by mouth twice daily. Fibro Care Fwyua-0-KLZ-EPA-Fish Oil 300-1,000 mg cap Take 1,000 mg by mouth twice daily. hyperimmune colostrum, bovine 200 mg tab Take 2 tablets by mouth twice daily. Ca/D3/mag ox/zinc/commercial helicopter pilot/jose/bor (CALCIUM 600-D3 PLUS, MAG-ZINC, ORAL) turmeric/turmeric ext/pepr ext (TURMERIC-TURMERIC EXT-PEPPER) 900-100-5 mg cap CPAP Bipap 17/13 cm H2O, Heat Humidity, suitable mask, [employer] supplies, opt Chinstrap, G47.33. cholecalciferol (VITAMIN D3) 2,000 unit tablet Take 2,000 Units by mouth once daily. FLUoxetine HCl (PROZAC) 40 mg capsule Take 1 capsule by mouth once daily. (Dr. Garcia) CYANOCOBALAMIN, VITAMIN B-12, (VITAMIN B-12 ORAL) Take by mouth. buPROPion XL (WELLBUTRIN XL) 150 mg 24 hr tablet Take one(1) tablet daily. Biotin (NAIL-EX) 2,500 mcg ORAL Tab Take one(1) tablet daily. DAILY VITAMIN TAB Take one(1) tablet daily. hydroCHLOROthiazide 25 mg tablet Take 1 tablet by mouth every afternoon. No current facility-administered medications for this visit. Review of Systems Objective BP (P) 136/76 (BP Site: Left Arm, BP Position: Sitting, BP Cuff Size: Large Adult) Pulse (P) 78 Resp (P) 16 Wt (P) 116.1 kg (256 lb) BMI (P) 42.60 kg/m Last 5 Encounter Wt Readings: Date: Wt: 05/27/2023 116.4 kg (256 lb 9.6 oz) 04/08/2023 115.7 kg (255 lb) 03/22/2023 115.2 kg (254 lb) 01/30/2023 115.2 kg (254 lb) 12/12/2022 115.2 kg (254 lb) No waist measurement recorded Estimated body mass index is 42.6 kg/m (pended) as calculated from the following: Height as of 04/08/23: 165.1 cm (5' 5). Weight as of this encounter: (P) 116.1 kg (256 lb). Last 5 Encounter BP Readings: Date: BP: 05/27/2023 124/82 05/08/2023 128/80 04/08/2023 129/81 04/08/2023 142/85[L UE[ 03/29/2023 124/81 Physical Exam Constitutional: Appearance: Normal appearance. She is obese. HENT: Head: Normocephalic. Eyes: Conjunctiva/sclera: Conjunctivae normal. Cardiovascular: Rate and Rhythm: Normal rate and regular rhythm. Heart sounds: Normal heart sounds. Pulmonary: Effort: Pulmonary effort is normal. Breath sounds: Normal breath sounds. Musculoskeletal: Right lower leg: No edema. Left lower leg: No edema. Skin: General: Skin is warm and dry. Neurological: General: No focal deficit present. Mental Status: She is alert and oriented to person, place, and time. Psychiatric: Mood and Affect: Mood normal. Behavior: Behavior normal. Thought Content: Thought content normal. Judgment: Judgment normal. Assessment and Plan Encounter Diagnosis ICD-10-CM 1. Acquired hypothyroidism E03.9 Will get labs updated 2. Neck pain M54.2 appears related to teeth gritting 3. 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 Loose stools R19.5 As noted above 5. Sleep related teeth grinding/gritting G47.63 Will get bite guard 6. Dyslipidemia E78.5 Started back on statin 7. Class 3 severe obesity due to excess calories with body mass index (BMI) of 40.0 to 44.9 in adult, unspecified whether serious comorbidity present (HCC) E66.01 Z68.41 Keep working on healthier diet, regular exercises and weight loos as discussed 8. Depression, recurrent (HCC) F33.9 Continues fluoxetine. 9. Encounter for immunization Z23 TDAP PRINTED PHARMACY INSTRUCTIONS Above issues addressed with patient. Patient involved in shared decision making for management of medical issues. History and medications reviewed. Epic updated as needed Refills and/or prescriptions taken care of and meds adjusted as indicated after reviewed history, exam and labs. Health Maintenance reviewed. Updated record and/or ordered tests as recorded. Encouraged on efforts at healthy diet and regular exercise and adequate sleep. I spent a total of 39 minutes on the date of the service which included [id number] patient care, completing clinical documentation, obtaining and/or reviewing separately obtained history, performing a medically appropriate examination, counseling and educating the patient/family/caregiver, and ordering medications, tests, or procedures. Emilee Condon MD documented in this encounter [facility] 05-31-2023 History of Present illness Narrative ENDOCRINOLOGY DISTANCE HEALTH VISIT This visit was conducted via my chart I have communicated my name and active licensure. The patient's identity and physical location were verified at the time of this visit. The patient consents to proceed with the evaluation remotely. SUBJECTIVE: Priscilla Ramos is a 68 year old female was referred for evaluation of a thyroid nodules. History in brief, she was noted to have incidental thyroid nodule on Chest CT in Feb 2022. She underwent repeat thyroid US in Feb 2023 Right Lobe: 3.8 x 1.7 x 2.1 cm; heterogeneous echogenicity, expected vascular flow. Left Lobe: 4.4 x 1.8 x 1.5 cm; heterogeneous echogenicity, expected vascular flow. Isthmus: 0.2 cm The most suspicious thyroid nodule(s) (up to four) as below: NODULE 1: Location: Right superior Size: 0.7 x 0.5 x 0.6 cm Characteristics: Composition: Solid or almost completely solid, 2 points Echogenicity: Hypoechoic, 2 points Shape: [id number], 0 points Margin: Smooth, 0 points Echogenic foci (add points for all that apply): None, 0 points Internal vascularity: present Interval growth: No significant growth given differences in technique TI-RADS Category: TR4 ACR Recommendation: TI-RADS 4 nodule. No FNA or follow-up imaging is advised. NODULE 2: Location: Mid right Size: 1.6 x 1.3 x 1.2 cm Characteristics: Composition: Solid or almost completely solid, 2 points Echogenicity: Hypoechoic, 2 points Shape: [id number], 0 points Margin: Smooth, 0 points Echogenic foci (add points for all that apply): Punctate echogenic foci, 3 points Internal vascularity: present Interval growth: Significant interval growth (20% increase in at least two nodule dimensions and a minimal increase of 2 mm, or a 50% or greater increase in volume). TI-RADS Category: TR5 ACR Recommendation: TI-RADS 5 nodule. FNA is advised. NODULE 3: Location: Right mid Size: 1.3 x 0.8 x 0.9 cm Characteristics: Composition: Solid or almost completely solid, 2 points Echogenicity: Hypoechoic, 2 points Shape: Semgv-avmp-anti, 0 points Margin: Smooth, 0 points Echogenic foci (add points for all that apply): None, 0 points Internal vascularity: present Interval growth: No significant growth given differences in technique TI-RADS Category: TR4 ACR Recommendation: TI-RADS 4 nodule. Follow up imaging in 1, 2, 3 and 5 years is advised. NODULE 4: Location: Left mid Size: 1 x 1 x 0.8 cm Characteristics: Composition: Solid or almost completely solid, 2 points Echogenicity: Hypoechoic, 2 points Shape: Coxpr-[id number]-mlip, 0 points Margin: Smooth, 0 points Echogenic foci (add points for all that apply): None, 0 points Internal vascularity: present Interval growth: No significant growth given differences in technique TI-RADS Category: TR4 ACR Recommendation: TI-RADS 4 nodule. Follow up imaging in 1, 2, 3 and 5 years is advised. FNA of Mid right thyroid nodule (1.6 x 1.3 x 1.2 cm) was performed THYROID RIGHT FINE NEEDLE ASPIRATION - RIGHT MID Benign. Benign thyroid nodule Related symptoms: Reports neck tenderness Swallowing difficulty: No Shortness of breath when lying flat: No History of radiation exposure to the neck: No Family history of thyroid cancer: No Her brother has a thyroid disorder but not thyroid cancer. PAST MEDICAL HISTORY Diagnosis Date Abnormal mammogram, unspecified 06/27/2006 Acquired hypothyroidism 07/04/2017 CAD (coronary artery disease) CAD (coronary artery disease) 07/25/2022 Calculus of gallbladder with chronic cholecystitis without obstruction 08/01/2015 Corns and callosities 01/24/2014 Diarrhea Dysphagia 05/27/2015 feeling like food sits in bottom of esophagus if eats heavier than usual meal Dysthymic disorder Depression (non-psychotic) Elevated antinuclear antibody (KELTON) level 08/25/2014 Essential hypertension HTN (hypertension) 07/25/2022 Internal hemorrhoids without mention of complication Left wrist sprain 07/2022 Myalgia and myositis, unspecified FIBROMYALGIA Obesity, unspecified Obesity Obstructive sleep apnea [facility] Osteoarthritis of multiple joints PAIN LEG (Right) 02/20/2005 Temporomandibular joint disorders, unspecified 11/23/2006 ALLERGIES No Known Allergies MEDICATIONS: Current Outpatient Medications on File Prior to Visit Medication Sig BIPAP amLODIPine (NORVASC) 10 mg tablet Take 10 mg by mouth once daily. losartan (COZAAR) 100 mg tablet Take 100 mg by mouth once daily. aspirin 81 mg chewable tablet Take 81 mg by mouth once daily. ZINC ORAL Take by mouth. levothyroxine (SYNTHROID) 25 mcg tablet Take 1 tablet by mouth once daily. gabapentin (NEURONTIN) 400 mg capsule Take 2 capsule 60-90 minutes before bedtime. ubidecarenone Q-10 (COENZYME Q-10) 10 mg cap Take 50 mg by mouth once daily. CPAP Increase PAP setting to 17/13 cmH2O. OTC NUTRITIONAL SUPPLEMENT Take 2 capsules by mouth twice daily. Fibro Care Tqami-4-WCM-EPA-Fish Oil 300-1,000 mg cap Take 1,000 mg by mouth twice daily. hyperimmune colostrum, bovine 200 mg tab Take 2 tablets by mouth twice daily. colestipol (COLESTID) 1 gram tablet Take 1-2 tablets by mouth once daily. As directed Ca/D3/mag ox/zinc/commercial helicopter pilot/jose/bor (CALCIUM 600-D3 PLUS, MAG-ZINC, ORAL) turmeric/turmeric ext/pepr ext (TURMERIC-TURMERIC EXT-PEPPER) 900-100-5 mg cap CPAP Bipap 17/13 cm H2O, Heat Humidity, suitable mask, [employer] supplies, opt Chinstrap, G47.33. cholecalciferol (VITAMIN D3) 2,000 unit tablet Take 2,000 Units by mouth once daily. FLUoxetine HCl (PROZAC) 40 mg capsule Take 1 capsule by mouth once daily. (Dr. Garcia) traZODone (DESYREL) 50 mg tablet Take 1 tablet by mouth daily at bedtime. CYANOCOBALAMIN, VITAMIN B-12, (VITAMIN B-12 ORAL) Take by mouth. buPROPion XL (WELLBUTRIN XL) 150 mg 24 hr tablet Take one(1) tablet daily. Biotin (NAIL-EX) 2,500 mcg ORAL Tab Take one(1) tablet daily. DAILY VITAMIN TAB Take one(1) tablet daily. Current Facility-Administered Medications on File Prior to Visit Medication perflutren lipid microspheres 1.3 mL in NaCl (PF) 0.9% 10 mL injection (DEFINITY) sodium chloride 0.9 % (flush) 10 mL (BD POSIFLUSH) REVIEW OF SYSTEMS: Answers submitted by the patient for this visit: Core Review of Systems (Submitted on 05/26/2023) Fever : No Night sweats: No Recent unintentional weight change: No Nasal Congestion: No Hearing Loss: No Vision Disturbance: No A cough: No Difficulty Breathing?: No Chest pain: No Irregular heartbeat: No Leg Swelling: No Nausea: No Diarrhea: No Black tarry stools: No Difficulty Urinating?: No Awaken at Night More Than Once to Urinate?: No Joint pain or stiffness: Yes Muscle aches: Yes Leg or Foot Discomfort at Night?: No A rash: No Dizziness: Yes Headaches: Yes Memory Loss: No Seizures: No PHYSICAL EXAMINATION: General: no acute distress, alert and orientated X 3 LABS AND IMAGING Thyroid US- see above TSH Date Value Ref Range Status 09/21/2022 0.670 0.270 - 4.200 mIU/L Final Free T4 Date Value Ref Range Status 09/21/2022 1.3 0.9 - 1.7 ng/dL Final ASSESSMENT AND PLAN: 1. Multiple Thyroid nodules: No risk factors for thyroid malignancy Indicated to the patient that thyroid nodules have a 5-10% risk of malignancy. Based on the thyroid US from Feb 2023, the right mid thyroid nodule had increased in size I recommended her to undergo FNA of the right mid thyroid nodule, which was benign. The remaining nodules didn't meet the criteria for FNA My recommendation is to repeat the thyroid US in Feb 2024 to reassess the size of thyroid nodules Follow up with me in Feb 2024, result will be discussed at the time of appt. Vivien Mcintosh MD documented in this encounter [facility] 05-23-2023 Miscellaneous Notes Okayed Patient has been identified by name and date of : Yes Patient phones for refill(s): Requested Prescriptions Pending Prescriptions Disp Refills levothyroxine (SYNTHROID) 25 mcg tablet 90 tablet 3 Sig: Take 1 tablet by mouth once daily. Date of last office visit in primary care: 12/12/2022 Date of next office visit in primary care: 06/12/2023 Please advise. Thank you. Vangie Haas LPN. documented in this encounter [facility] 05-23-2023 Miscellaneous Notes Phone call placed patient has appointment 05/27/2023, requested refill Gabapentin, records indicate prescription sent on 03/22/2023 qty 180 w/ 1 refill covered for dates 03/22/23 - 06/16/2023. Patient will contact [employer], send in message. Patient verbalized understanding, agreed with plan of care. Rose Monson LPN documented in this encounter [facility] 04-05-2023 Miscellaneous Notes Noted. Encounter closed. Biopsy has been approved at [facility]. Called pt to schedule. [facility] had a cancellation on 04/18. Pt confirmed appt for 04/18 at [facility] for thyroid biopsy. Summary: Thyroid Biopsy Request received at [facility]. Sending to radiologist for approval. Currently scheduling in April for thyroid biopsies. This cannot be completed in [place] this will have to be done in [facility]. We will forward to our clinic scheduler for [facility] biopsies and have them contact her to schedule. [employer] message sent to patient to expect a call from radiology scheduling, attempted to contact her by phone at [phone] but reached VM, I did not leave a message. Vianey, Can you please contact this patient to schedule for the FNA biopsy for [facility] location. Orders are in Epic. Priscilla is calling Dayna Mcginnis MD today to check on the Biopsy Request. Patient had a [employer] message conversation with Dr. Mcginnis about a thyroid biopsy and was supposed to get a call back from the office when it had been set up with radiology. Patient's follow up appointment is 04-09-23 and the biopsy has not been set up yet. She states she lives in [place] and would like to have it done either in [place] or [place]. Please call patient to proceed with scheduling. Patient has been identified by name and birthdate. Duration of symptoms: 1 weeks Person calling: self Call patient at: at home [phone] (home) [phone] (cell) Was an appointment scheduled: No Closing statement: Princess Ward documented in this encounter [facility] 04-04-2023 Miscellaneous Notes Patient is waiting to get scheduled for thyroid biopsy and is wanting to know if she should keep her 04/09 appointment. Please review and advise. documented in this encounter [facility] 04-03-2023 Miscellaneous Notes 3rd attempt- spoke with patient she received message to r/s, will call back as she was at a restaurant at the time of the call 1st attempt - left DVM for patient to r/s 06/10/23 Dr. Alfredo appt 2nd attempt- sent secure patient message Appt cx r/s needed documented in this encounter [facility] 04-01-2023 History of Present illness Narrative Episode Visit Count: 11 Therapist That Will Accept/Oversee The Plan Of Care: Rd Ward PT Start of Care Date: 02/07/23 Onset Date: 08/08/22 Plan of Care Certification Date: 03/11/23 Next Certification Due Date: 04/08/23 Patient Identified by Name and Date of : Yes REHABILITATION AND SPORTS THERAPY PHYSICAL THERAPY TREATMENT NOTE ASSESSMENT: Priscilla Ramos tolerated the session with fatigue. She demonstrated improvements in aching in low back with use of manual lumbar traction . The patient will continue to benefit from ongoing skilled physical therapy to progress toward set goals. PLAN FOR NEXT VISIT: Try resuming seated or standing core strengthening as able. SUBJECTIVE: Pt reports that she is hurting all over today, possibly due to the weather. Pain: Pain Pain Level: 6 Pain Location: Low Back/Lumbar Spine- Midline Post Treatment Pain Post Treatment Pain Level: No Change Post Treatment Pain Location: Low Back/Lumbar Spine- Midline, Low Back/Lumbar Spine - Left, Low Back/Lumbar Spine - Right OBJECTIVE MEASURES WITH LEVEL OF FUNCTION: TREATMENT: Therapeutic Exercise: 1: SciFit StepOne seat #10 x6 minutes (Pt provided an update on her condition and subjective collected) 2: supine LTR 2x10 3: supine B SKTC 3x30 seconds 4: supine DKTC 3x30 seconds Skilled Intervention: Patient was educated in proper exercise technique and purpose for exercises. Skilled judgment was used in selection of appropriate interventions. Correct performance of therapeutic exercises was facilitated with verbal and visual cuing. Manual Therapy: Manual Traction: After therex, static manual lumbar belt traction x15 minutes with pt supine and LEs on leg rest and force to pt tolerance. Skilled Intervention: Manual skills to improve joint mobility, ROM, and decrease pain. Utilized anatomy knowledge of the therapist, and assessment of patient's response to intervention. Billing Therapeutic Exercise Treatment Minutes: 25 Manual TherapyTreatment Minutes: 15 Skilled Treatment Time Minutes (timed and untimed codes): 40 Total Session Time (minutes): 40 Session Start Time : 1530 Session Stop Time : [address], [address] Ward PT documented in this encounter [facility] 03-29-2023 History of Present illness Narrative Episode Visit Count: 10 Therapist That Will Accept/Oversee The Plan Of Care: Rd Ward PT Start of Care Date: 02/07/23 Onset Date: 08/08/22 Plan of Care Certification Date: 03/11/23 Next Certification Due Date: 04/08/23 Patient Identified by Name and Date of : Yes REHABILITATION AND SPORTS THERAPY PHYSICAL THERAPY TREATMENT NOTE ASSESSMENT: Priscilla Ramos tolerated the session with decreased activity tolerance due to not feeling well and decreased symptoms. She demonstrated improvements in flushing sensation with upright exercises. Pt requested to have her BP taken part way through session due to the way she was feeling, BP: 124/81, pulse 97 bpm. The patient will continue to benefit from ongoing skilled physical therapy to progress toward set goals. PLAN FOR NEXT VISIT: Continue with core stabilization strengthening either in standing or sitting dependent on pt's symptoms. SUBJECTIVE: Pt reports that her back is okay today. Pt states still havingflushing sensation, but unsure if it is actually flushing but more so feels like she is feverish and very weak. Pt to have thyroid biopsy on a nodule she has. Pt reports her stamina suffers, after an hour of walking she was really fatigued. Pain: Pain Pain Level: 2 Pain Location: Low Back/Lumbar Spine- Midline Post Treatment Pain Post Treatment Pain Level: Better OBJECTIVE MEASURES WITH LEVEL OF FUNCTION: TREATMENT: Therapeutic Exercise: 1: FloQast StepOne seat #10 x6 minutes (Pt provided an update on her condition and subjective collected) 2: Seated isometric abdominals 2x10 with 2-3 second holds 3: Seated iso abs with alt arms 2x10 B 4: Seated iso abs with alt LE marching 2x10 B Skilled Intervention: Patient was educated in proper exercise technique and purpose for exercises. Skilled judgment was used in selection of appropriate interventions. Correct performance of therapeutic exercises was facilitated with verbal and visual cuing. Manual Therapy: Manual Traction: After therex, static manual lumbar belt traction x10 minutes with pt supine and LEs on leg rest and force to pt tolerance. Skilled Intervention: Manual skills to improve joint mobility, ROM, and decrease pain. Utilized anatomy knowledge of the therapist, and assessment of patient's response to intervention. Billing Therapeutic Exercise Treatment Minutes: 34 Manual TherapyTreatment Minutes: 10 Skilled Treatment Time Minutes (timed and untimed codes): 44 Total Session Time (minutes): 44 Session Start Time : 1445 Session Stop Time : 1529 Al[address] Porterjatinder, CARLOTA Ward PT documented in this encounter [facility] 03-26-2023 History of Present illness Narrative Episode Visit Count: 9 Therapist That Will Accept/Oversee The Plan Of Care: Rd Ward PT Start of Care Date: 02/07/23 Onset Date: 08/08/22 Plan of Care Certification Date: 03/11/23 Next Certification Due Date: 04/08/23 Patient Identified by Name and Date of : Yes REHABILITATION AND SPORTS THERAPY PHYSICAL THERAPY TREATMENT NOTE ASSESSMENT: Priscilla Ramos tolerated the session with decreased symptoms. She demonstrated difficulty with flexibility of B piriformis this visit. The patient will continue to benefit from ongoing skilled physical therapy to progress toward set goals. PLAN FOR NEXT VISIT: Continue with postural stretching and core strengthening. Continue manual lumbar belt traction. SUBJECTIVE: Pt reports that her back is okay today. Pt reports that she has had a lot of pain in her jaw on the L side and into her neck and saw her massotherapist this morning. Pt had her blood pressure medication cut in half, wanting to see if she flushes with exercise today. Pain: Pain Pain Level: 2 Pain Location: Low Back/Lumbar Spine- Midline Post Treatment Pain Post Treatment Pain Level: Better OBJECTIVE MEASURES WITH LEVEL OF FUNCTION: TREATMENT: Therapeutic Exercise: 1: SciFit StepOne seat #10 x6 minutes (Pt provided an update on her condition and subjective collected) 2: supine LTR 2x10 3: supine B SKTC x30 seconds 4: supine DKTC x30 seconds 5: supine B piriformis stretch x30 seconds 6: stirring the pot at Hoist, 2 plates x10 CW and x10 CCW with facing both latera directions. Skilled Intervention: Patient was educated in proper exercise technique and purpose for exercises. Skilled judgment was used in selection of appropriate interventions. Correct performance of therapeutic exercises was facilitated with verbal and visual cuing. Manual Therapy: Manual Traction: After therex, static manual lumbar belt traction x10 minutes with pt supine and LEs on leg rest and force to pt tolerance. Skilled Intervention: Manual skills to improve joint mobility, ROM, and decrease pain. Utilized anatomy knowledge of the therapist, and assessment of patient's response to intervention. Billing Therapeutic Exercise Treatment Minutes: 30 Manual TherapyTreatment Minutes: 10 Skilled Treatment Time Minutes (timed and untimed codes): 40 Total Session Time (minutes): 40 Session Start Time : 1445 Session Stop Time : 1525 CARLOTA Monae PT documented in this encounter [facility] 03-22-2023 History of Present illness Narrative ESTABLISHED PATIENT VISIT CHIEF COMPLAINT: Follow Up HISTORY OF PRESENT ILLNESS: Priscilla Ramos is a 68 year old female, with a PMH significant for and per last office visit of 09/10/22: 1. Obstructive sleep apnea (adult) (pediatric) - ICD9: 327.23, ICD10: G47.33 (primary diagnosis) Patient doing well with PAP therapy 17/13 cmH2O. Compliant by subjective history and objective means of PAP data download. Reminded pt to clean and replace equipment regularly. Advised not to drive or operate heavy machinery if sleepy. No other issues at this time. 2. RLS (restless legs syndrome) - ICD9: 333.94, ICD10: G25.81 3. Fibromyalgia - ICD9: 729.1, ICD10: M79.7 Well controlled with gabapentin. Pt interested in lowering dose as above, and indicated that she is free to do so, but if symptoms exacerbated, to increase gabapentin back to 800mg QHS> Also encouraged pt to try to further decrease and d/c Trazodone as lowering dose since last visit did not worsen her sleepy. Pt agrees with plan. Only issues patient notes is sometimes difficulties falling asleep if does not take gabapentin early enough. Maybe occurs once every 3 weeks. Knows that if she takes it >1.5 hours prior to bedtime or before 7PM does well. Pt pref to go to bed at 9PM. Pt states fatigued all the time but reports it as being due to other medical conditions. Used PAP 90/90 days with an avg of 10+ hours per night. Set at 17/13 cmH2O. 95% leak is 0.6 LPM. AHI is 2.9. In addition to gabapentin 800mg is still on Trazodone 25mg QHS. Staying asleep through the night for the most part. If wakes up it is due to being too hot or cold. When wakes up to start the day does find sleep restorative. Pt does note fatigue. but has the feeling sometimes when driving around of feeling sleepy. Sleep Questionnaire Data Depression Screening 05/30/2022 09/10/2022 01/26/2023 PHQ-2 Score 1 2 2 PHQ-9 Score - 7 6 PED PHQ-9 05/30/2022 09/10/2022 01/26/2023 Little interest or pleasure in doing things Not at all Several days Several days Feeling down, depressed, or hopeless Several days Several days Several days Trouble falling or staying asleep, or sleeping too much - Several days Several days Feeling tired or having little energy - Several days More than half the days Poor appetite or overeating - Several days Not at all Feeling bad about yourself - or that you are a failure or have let yourself or your family down - Several days Not at all Trouble concentrating on things, such as reading the newspaper or watching television - Several days Several days Moving or speaking so slowly that other people could have noticed. Or the opposite - being so fidgety or restless that you have been moving around a lot more than usual - Not at all Not at all Thoughts that you would be better off , or of hurting yourself in some way - Not at all Not at all If you checked off any problems, how difficult have these problems made it for you to do your work, take care of things at home, or get along with other people? - Somewhat difficult Somewhat difficult PHQ-9 Score - 7 (Mild Depression) 6 (Mild Depression) Cal[place]oun Sleepiness Scale 05/30/2022 09/10/2022 01/26/2023 Score - 6 (No daytime sleepiness) - Patient feels depression might be worse in recent months. Pt states needing new psychiatrist due to her prior retiring. REVIEW OF SYSTEMS GENERAL:No weight loss, malaise or fevers. HEENT:Negative for frequent or significant headaches, No changes in hearing or vision, no nose bleeds or other nasal problems NECK:Negative for lumps, goiter, pain and significant neck swelling RESPIRATORY: Negative for cough, wheezing or shortness of breath. CARDIOVASCULAR: Negative for chest pain, leg swelling or palpitations. GASTROINTESTINAL: Negative for abdominal discomfort, blood in stools or black stools or change in bowel habits GENITOURINARY: No history of dysuria, frequency or incontinence MUSCULOSKELETAL: Negative for joint pain or swelling, back pain or muscle pain. NEUROLOGIC:Negative for focal numbness or weakness, headaches and dizziness or syncope, vision changes, speech/languag changes - EXCEPT that as per HPI above. SKIN:Negative for lesions, rash, and itching. PSYCHIATRIC: See HPI. LAB/IMAGING: Those performed since patient's last visit have been reviewed. WBC (k/uL) Date Value 11/23/2022 6.80 RBC (m/uL) Date Value 11/23/2022 4.38 Hemoglobin (g/dL) Date Value 11/23/2022 13.7 Hematocrit (%) Date Value 11/23/2022 41.6 MCV (fL) Date Value 11/23/2022 95.0 MCH (pg) Date Value 11/23/2022 31.3 MCHC (g/dL) Date Value 11/23/2022 32.9 RDW-CV (%) Date Value 11/23/2022 12.7 Platelet Count (k/uL) Date Value 11/23/2022 306 MPV (fL) Date Value 11/23/2022 9.4 Glucose (mg/dL) Date Value 11/23/2022 104 (H) BUN (mg/dL) Date Value 11/23/2022 20 Creatinine (mg/dL) Date Value 11/23/2022 0.63 Sodium (mmol/L) Date Value 11/23/2022 141 Potassium (mmol/L) Date Value 11/23/2022 4.9 Chloride (mmol/L) Date Value 11/23/2022 106 (H) CO2 (mmol/L) Date Value 11/23/2022 24 Protein, Total (g/dL) Date Value 02/09/2023 6.9 Albumin (g/dL) Date Value 02/09/2023 3.9 Calcium, Total (mg/dL) Date Value 11/23/2022 9.9 Alkaline Phosphatase (U/L) Date Value 02/09/2023 95 Bilirubin, Total (mg/dL) Date Value 02/09/2023 0.3 AST (U/L) Date Value 02/09/2023 30 ALT (U/L) Date Value 02/09/2023 32 KELTON (no units) Date Value 08/21/2014 Positive (A) Rheumatoid Factor (IU/mL) Date Value 12/14/2020 13 Hep C Antibody IA (no units) Date Value 12/14/2020 Negative URINALYSIS No results found for: PH, SPGR, UGLUC, UBILI, UKET, UHB, UPROT, UROBIL, UWBC, SSA MEDICATIONS: gabapentin (NEURONTIN) 400 mg capsule^Take 2 capsule 60-90 minutes before bedtime.^Disp: 180 capsule^Rfl: 0 acetaminophen (TYLENOL EXTRA STRENGTH) 500 mg tablet^Take 1,000 mg by mouth every 8 hours as needed for pain.^Disp: ^Rfl: rosuvastatin (CRESTOR) 5 mg tablet^Take 1 tablet by mouth daily at bedtime. As directed^Disp: 90 tablet^Rfl: 3 colestipol (COLESTID) 1 gram tablet^Take 1-2 tablets by mouth once daily. As directed^Disp: 60 tablet^Rfl: 2 diclofenac (VOLTAREN ARTHRITIS PAIN) 1 % topical gel^Apply 2 g to affected area four times daily as needed (wrist pain).^Disp: 100 g^Rfl: 0 [id number]/sod sulf,bicarb,Cl/KCl (GOLYTELY ORAL)^Take by mouth.^Disp: ^Rfl: acetaminophen (TYLENOL 8 HOUR ORAL)^Take by mouth.^Disp: ^Rfl: BIPAP^^Disp: ^Rfl: amLODIPine (NORVASC) 10 mg tablet^Take 10 mg by mouth once daily.^Disp: ^Rfl: losartan (COZAAR) 100 mg tablet^Take 100 mg by mouth once daily.^Disp: ^Rfl: aspirin 81 mg chewable tablet^Take 81 mg by mouth once daily.^Disp: ^Rfl: ZINC ORAL^Take by mouth.^Disp: ^Rfl: levothyroxine (SYNTHROID) 25 mcg tablet^Take 1 tablet by mouth once daily.^Disp: 90 tablet^Rfl: 3 ubidecarenone Q-10 (COENZYME Q-10) 10 mg cap^Take 50 mg by mouth once daily.^Disp: ^Rfl: OTC NUTRITIONAL SUPPLEMENT^Take 2 capsules by mouth twice daily. Fibro Care^Disp: ^Rfl: Bzelq-9-JUO-EPA-Fish Oil 300-1,000 mg cap^Take 1,000 mg by mouth twice daily.^Disp: ^Rfl: hyperimmune colostrum, bovine 200 mg tab^Take 2 tablets by mouth twice daily.^Disp: ^Rfl: Ca/D3/mag ox/zinc/commercial helicopter pilot/jose/bor (CALCIUM 600-D3 PLUS, MAG-ZINC, ORAL)^^Disp: ^Rfl: turmeric/turmeric ext/pepr ext (TURMERIC-TURMERIC EXT-PEPPER) 900-100-5 mg cap^^Disp: ^Rfl: CPAP^Bipap 17/13 cm H2O, Heat Humidity, suitable mask, [employer], opt [place], G47.33.^Disp: 1 Device^Rfl: 0 cholecalciferol (VITAMIN D3) 2,000 unit tablet^Take 2,000 Units by mouth once daily. ^Disp: ^Rfl: FLUoxetine HCl (PROZAC) 40 mg capsule^Take 1 capsule by mouth once daily. (Dr. Garcia)^Disp: ^Rfl: traZODone (DESYREL) 50 mg tablet^Take 1 tablet by mouth daily at bedtime.^Disp: ^Rfl: CYANOCOBALAMIN, VITAMIN B-12, (VITAMIN B-12 ORAL)^Take by mouth.^Disp: ^Rfl: buPROPion XL (WELLBUTRIN XL) 150 mg 24 hr tablet^Take one(1) tablet daily.^Disp: ^Rfl: 0 Biotin (NAIL-EX) 2,500 mcg ORAL Tab^Take one(1) tablet daily.^Disp: ^Rfl: 0 DAILY VITAMIN TAB^Take one(1) tablet daily.^Disp: ^Rfl: 0 HISTORIES PAST MEDICAL HISTORY Diagnosis Date Abnormal mammogram, unspecified 06/27/2006 Acquired hypothyroidism 07/04/2017 CAD (coronary artery disease) CAD (coronary artery disease) 07/25/2022 Calculus of gallbladder with chronic cholecystitis without obstruction 08/01/2015 Corns and callosities 01/24/2014 Diarrhea Dysphagia 05/27/2015 feeling like food sits in bottom of esophagus if eats heavier than usual meal Dysthymic disorder Depression (non-psychotic) Elevated antinuclear antibody (KELTON) level 08/25/2014 Essential hypertension HTN (hypertension) 07/25/2022 Internal hemorrhoids without mention of complication Left wrist sprain 07/2022 Myalgia and myositis, unspecified FIBROMYALGIA Obesity, unspecified Obesity Obstructive sleep apnea DME [place] Osteoarthritis of multiple joints PAIN LEG (Right) 02/20/2005 Temporomandibular joint disorders, unspecified 11/23/2006 FAMILY HISTORY Problem Relation Age of Onset Diabetes Mother late in life at 75 Stroke Mother x3 Cancer Father myeloma (from immunesuppressants) at age 80 of chf and perf. bowel other (ESRD) Father had sudden renal failure; had kidney transplant at 68yo Thyroid Brother Hypertension Son No Known Problems Son Anesthesia Problems No Family History Blood Clots No Family History Clotting Disorder No Family History SOCIAL HISTORY Social History Tobacco Use Smoking status: Never Smokeless tobacco: Never Vaping Use Vaping Use: Never used Substance Use Topics Alcohol use: Yes Alcohol/week: 18.0 standard drinks of alcohol Types: 18 Glasses of wine per week Comment: wine with supper Drug use: No PHYSICAL EXAMINATION Blood pressure 144/81, pulse 80, resp. rate 18, weight 115.2 kg (254 lb), SpO2 98 %. GENERAL EXAM: General appearance: NAD, pleasant. HEENT: NC/AT, nasal congestion absent, no oral lesions, membranes moist. NECK: ROM nml. Lungs: CTA bilaterally. CV: RRR nl S1, S2. No carotid bruits. Extr: No cyanosis, clubbing or edema. Skin: Cool to touch. NEUROLOGICAL EXAM: General: Awake, alert, oriented x3 (person,place,time), speech fluent, no dysarthria; comprehension, naming, repetition intact. CN: PERRL,EOMI and without nystagmus, VFF to confrontation, facial sensation and strength are normal and symmetric, hearing is intact to finger rub bilaterally, palate and tongue movements are intact and symmetric. SCM and trapezius strength normal. Motor: Normal tone, bulk and strength (5/5) bilaterally (throughout extremities x4). Coordination: FNF, NINA intact. No tremors. Sensation: LT intact throughout. No evidence of neglect. Gait: Stable with normal stride and arm swing. Assessment and Plan: ASSESSMENT/PLAN: 1. NELI on CPAP - ICD9: 327.23, ICD10: G47.33 (primary diagnosis) Subjective and objective compliance (PAP data download) confirmed during office visit. Pt endorses perceived benefit with PAP use. No mask issues. Reminded pt to clean and replace equipment regularly. Advised pt not to drive or operate heavy machinery if sleepy 2. RLS (restless legs syndrome) - ICD9: 333.94, ICD10: G25.81 Stable on gabapentin 800mg 1.5 hours prior to bedtime. Rare breakthrough if does not take meds on time due to other responsibilities. 3. Fibromyalgia - ICD9: 729.1, ICD10: M79.7 As with RLS. Not disrupting sleep with gabapentin. 4. Malaise and fatigue - ICD9: 780.79, ICD10: R53.81, R53.83 5. Excessive daytime sleepiness - ICD9: 780.54, ICD10: G47.19 Patient with chronic fatigue due to med conditions but also endorsing daytime sleepiness. ESS not completed. Getting adequate sleep nightly. Question if depression playing some role in EDS. She will be seeing new psychiatrist next month to determine need for med changes. No SI or HI. If med changes provide no relief, then consider trial of Provigil or Nuvigil so long as BP and HR controlled. Pt will follow up approximately 1 month after seeing psychiatry. 6. Chronic insomnia - ICD9: 780.52, ICD10: F51.04 Stable on Trazodone 25mg nightly. Pt has option to increase back up to 50mg if needed, but over all goal is for patient to try to stop medication at some point in the near future. Sahara Boateng MD I spent a total of 30 minutes on the date of the service which included preparing to see the patient, [id number] patient care, completing clinical documentation, obtaining and/or reviewing separately obtained history, performing a medically appropriate examination, counseling and educating the patient/family/caregiver, ordering medications, tests, or procedures, independently interpreting results (not separately reported), and communicating results to the patient/family/caregiver. (results include PAP data download). Medical Decision Making: Problems: Moderate: 2+ stable chronic illnesses and New problem with uncertain prognosis Data: Unique test result(s) reviewed: 1 Risk: Moderate: Drug management Medical Decision Making Level: 4 - Moderate PDMP website checked and validated. All prescriptions have been APPROPRIATELY filled. No suspicious activity was identified. 03/22/2023 by Sahara Boateng MD documented in this encounter [facility] 03-18-2023 History of Present illness Narrative POPULATION HEALTH NAVIGATION OUTREACH Action/FYI NO ANSWER [employer] MESSAGE SENT ANNUAL MEDICARE WELLNESS EXAM Advance Directive Discussion due on 04/22/2022 Mammogram Screening due on 04/11/2023 Patient Identified by Name and : NO Outreach Outcome/Action Unable to reach patient: Phone number not valid / voicemail full [employer] System[employer] message sent Did you use a PCP flex slot to schedule this appointment? N/A Reason for Outreach Care Gap or Scheduling/Wellness visits Payer: Payor: MEDICARE / Plan: MEDICARE A AND B / Product Type: Medicare / Care Gap Reviewed:: Annual Wellness visit Breast Cancer screening Reminder: Reminder note to check Health Maintenance for items below Health Maintenance items due: RSV Vaccine(1 - 1-dose 60+ series) Never done DTaP,Tdap,Td Vaccine(2 - Td or Tdap) due on 06/27/2021 Advance Directive Discussion due on 04/22/2022 Covid-19 Vaccine(2022- season) due on 12/21/2022 Mammogram Screening due on 04/11/2023 Navigation Signature: Idalmis Pittman MA March 18, 2023 10:39 AM documented in this encounter [facility] 03-11-2023 History of Present illness Narrative Episode Visit Count: 8 Therapist That Will Accept/Oversee The Plan Of Care: Rd Wrad PT Start of Care Date: 02/07/23 Onset Date: 08/08/22 Plan of Care Certification Date: 03/11/23 Next Certification Due Date: 04/08/23 Patient Identified by Name and Date of : Yes REHABILITATION AND SPORTS THERAPY PHYSICAL THERAPY PROGRESS REPORT PLAN OF CARE UPDATE: Assessment: Priscilla M Ramos demonstrates moderate improvement in walking and bending. She has progressed toward goals. Patient continues to present with impairments in ADL's, independence in exercise, overall function, range of motion, strength, and symptom management that interfere with walking, stair negotiation, standing, bending . Current prognosis is Good due to: current objective clinical presentation, good overall health status, positive past response to therapy, good support system/ coping skills, within-session changes. She will benefit from continued skilled therapy services to meet the updated goals for this plan of care as noted below. Updated: 03/11/23 Goals for Episode of Care: created on 02/07/23 through 03/14/23 Independent in home exercises. - MET, will continue and progress to tolerance. Patient will decrease pain rating by 2 points to meet minimal clinical important difference for numeric pain rating scale. - Partially MET, will continue Restore pain-free lumbar ROM to WFL to allow for improved functional Mobility - Partially MET, will continue Stand / Walk without limitations, without pain/symptoms. - Not MET, will continue Patient will be able to tolerate walking and stairs without increased symptoms. - Partially MET, will continue Patient will increase strength of core and postural muscles to WFL to allow for improved postural maintenance. - Partially MET, will continue Patient Goals: decrease numbness and improve strength and stability of L LE. - Partially MET, will continue Patient Goals: decrease numbness and improve strength and stability of L LE. Planned Interventions, Frequency, and Duration: 2x/week, 4 weeks Total Number of Visits Planned: 8 Patient to be seen for Therapeutic exercise (88460), Neuromuscular re-education (71018), Manual therapy (37589), Therapeutic activities (19466), Self-correction management (99392), Patient/Family/Caregiver Education, Body Mechanics Training PLAN FOR NEXT VISIT: Continue with postural stretching and core strengthening. Continue manual lumbar belt traction. SUBJECTIVE: Pt reports that overall she is better since starting therapy. She reports a reduction in the frequency of episodes of instability in L LE. She reports that the episodes still occur without warning and it makes her fearful that she won't be able to walk safely. She reports compliance with HEP 1x day everyday. She denies any pain to start today. She reports that when pain occurs, it is in her low back and 5/10. She denies any improvements with standing and walking tolerance. She reports that her ability to negotiate stairs is improved lately. She feels like the traction is helping. After traction she reports thather symptoms are decreased. Pt states, I know my L hip and L knee are better. Patient Goals: decrease numbness and improve strength and stability of L LE. Functional Limitations: walking, stair negotiation, standing, bending Prior Level of Function: Independent with restrictions Independent with the following restrictions: functional mobility limitations from chronic instability Intake Information: Prescription present Pain: Pain Pain Level: 0 Description: (No pain currently) Frequency: Intermittent Post Treatment Pain Post Treatment Pain Level: Better Post Treatment Symptoms: After traction and as she was leaving, pt reported feeling like she was standing more upright and just felt better in general. PROMIS Scales Higher is Better 03/05/2023 02/24/2023 02/04/2023 Phys Func - Score - 40 (mild dysfunction) - Phys Func - Percentile - 16 % - Self-Eff Symptom - Score 44 (Average) - 44 (Average) Self-Eff Symptom - Percentile 27 % - 27 % T-scores: mean of general population = 50. 5 points is clinically meaningfully difference Percentiles provide an indication of how the patient's score ranks in relation to the general population. Higher percentile rankings indicate better function/quality of life. 50th percentile is the average of the general population and indicates half of respondents had a worse score. OBJECTIVE MEASURES WITH LEVEL OF FUNCTION: Sensation - Lumbar Sensation: Impaired Impaired Sensation: (Pt reports numbness and tingling in L LE consistently with intermittent instability) Lumbar Spine AROM Lumbar Flexion: Normal Lumbar Extension: Normal Lumbar R Side-Bend: Moderate limitation Lumbar L Side-Bend: Minimal limitation Lumbar R Rotation: Normal Lumbar L Rotation: Normal LE Flexibility Flexibility: Piriformis Flexibility R Piriformis Flexibility: 30 L Piriformis Flexibility: 30 LE Strength Trunk Strength: Improved slightly based on improved exercise tolerance and pt's functional improvements. TREATMENT: Therapeutic Exercise: 1: [employer]Fit StepOne seat #10 x6 minutes (Pt provided an update on her condition and subjective collected) 2: supine LTR 2x10 3: supine B SKTC x30 seconds 4: supine DKTC x30 seconds 5: supine B piriformis stretch x30 seconds 6: stirring the pot at [employer], 2 plates x10 CW and x10 CCW with facing both latera directions. 7: Re-assessment results were reviewed with patient and this information was used as rationale for proposed treatment plan recommendations. Skilled Intervention: Patient was educated in proper exercise technique and purpose for exercises. Skilled judgment was used in selection of appropriate interventions. Correct performance of therapeutic exercises was facilitated with verbal, visual, and tactile cuing. Manual Therapy: Manual Traction: After therex, static manual lumbar belt traction x10 minutes with pt supine and LEs on leg rest and force to pt tolerance. Skilled Intervention: Manual skills to improve joint mobility, ROM, and decrease pain. Utilized anatomy knowledge of the therapist, and assessment of patient's response to intervention. Billing Therapeutic Exercise Treatment Minutes: 35 Manual TherapyTreatment Minutes: 10 Skilled Treatment Time Minutes (timed and untimed codes): 45 Total Session Time (minutes): 45 Session Start Time : 1500 Session Stop Time : [address] PT documented in this encounter [facility] 03-11-2023 Miscellaneous Notes Closed. documented in this encounter [facility] 03-11-2023 Miscellaneous Notes Message sent to patient. Closed. documented in this encounter [facility] 03-08-2023 History of Present illness Narrative Episode Visit Count: 7 Therapist That Will Accept/Oversee The Plan Of Care: Rd Ward PT Start of Care Date: 02/07/23 Onset Date: 08/08/22 Plan of Care Certification Date: 02/07/23 Next Certification Due Date: 03/14/23 Patient Identified by Name and Date of : Yes REHABILITATION AND SPORTS THERAPY PHYSICAL THERAPY TREATMENT NOTE ASSESSMENT: Priscilla Ramos tolerated the session with fatigue and expected muscle soreness. She demonstrated difficulty with laying supine due to flushing and feeling light-headed. The patient will continue to benefit from ongoing skilled physical therapy to progress toward set goals. PLAN FOR NEXT VISIT: Asses response to seated core strengthening. SUBJECTIVE: Pt reports that she is hurting today in her low back and abdominal muscles, thinks its due to the weather. Pt did not do any exercises yesterday due to soreness from day before. Pt mulched around 3 trees yesterday. Pt has noticed increasing flushing in her face and gets a little dizzy and light-headed , epsecially with exercise, this could be a side affect of her blood pressure medication, but unsure. Pain: Pain Pain Level: 4 Pain Location: Low Back/Lumbar Spine- Midline Post Treatment Pain Post Treatment Pain Level: No Change Post Treatment Pain Location: Low Back/Lumbar Spine- Midline OBJECTIVE MEASURES WITH LEVEL OF FUNCTION: Form observed throughout session. TREATMENT: Therapeutic Exercise: 1: [employer] StepOne seat #10 x6 minutes (Pt provided an update on her condition and subjective collected) 2: supine LTR 2x10 3: supine B SKTC x30 seconds 4: supine DKTC x30 seconds 5: supine B piriformis stretch x30 seconds 6: Seated TA activation 2x10 with 2-3 second holds 7: Seated TA activation with alt marching 2x10 B 8: Stir the Pot with PTB 2x10 CW and CCW facing each direction 9: Seated TA activation wiht push into 55 cm physioball 2x10 Skilled Intervention: Patient was educated in proper exercise technique and purpose for exercises. Skilled judgment was used in selection of appropriate interventions. Correct performance of therapeutic exercises was facilitated with verbal and visual cuing. Manual Therapy: Manual Traction: After therex, static manual lumbar belt traction x10 minutes with pt supine and LEs on leg rest and force to pt tolerance. Skilled Intervention: Manual skills to improve joint mobility, ROM, and decrease pain. Utilized anatomy knowledge of the therapist, and assessment of patient's response to intervention. Billing Therapeutic Exercise Treatment Minutes: 36 Manual TherapyTreatment Minutes: 10 Skilled Treatment Time Minutes (timed and untimed codes): 46 Total Session Time (minutes): 46 Session Start Time : 1400 Session Stop Time : [address] PT documented in this encounter [facility] 02-28-2023 History of Present illness Narrative Episode Visit Count: 5 Therapist That Will Accept/Oversee The Plan Of Care: Rd Ward PT Start of Care Date: 02/07/23 Onset Date: 08/08/22 Plan of Care Certification Date: 02/07/23 Next Certification Due Date: 03/14/23 Patient Identified by Name and Date of : Yes REHABILITATION AND SPORTS THERAPY PHYSICAL THERAPY TREATMENT NOTE ASSESSMENT: Priscilla Ramos tolerated the session with fatigue, decreased symptoms, and expected muscle soreness. She demonstrated improvements in pain. The patient will continue to benefit from ongoing skilled physical therapy to progress toward set goals. PLAN FOR NEXT VISIT: Continue with core and postural strengthening as well as manual belt traction. SUBJECTIVE: Pt reports stiffness and soreness in her L knee and hip that she attributes to being very active today running errands. Overall she denies any significant changes since last session and that states that she is the same currently. She reports minimal to no change following last treatment session. She reports that she is only completing HEP 1x day. During therex pt reported concerns about feeling flushed. Pain: Pain Pain Level: 4 Pain Location: Hip - Left, Knee - Left Description: Aching Frequency: Intermittent Post Treatment Pain Post Treatment Pain Level: Better Post Treatment Pain Location: Knee - Left, Hip - Left Post Treatment Symptoms: After session today, pt reported that she felt significantly better and was not having any pain in L hip or knee as she was leaving. OBJECTIVE MEASURES WITH LEVEL OF FUNCTION: TREATMENT: Therapeutic Exercise: 1: [employer] StepOne seat #10 x6 minutes (Pt provided an update on her condition and plan of care and HEP reviewed.) 2: supine LTR x10 3: supine B SKTC x30 seconds 4: supine DKTC x30 seconds 5: supine B piriformis stretch x30 seconds 6: posterior pelvic tilts 3x10 supine with stabilizer pressure biofeedback 7: sustained posterior pelvic tilts with stabilizer pressure biofeedback with B alt marching 2x20 8: supine sustained posterior pelvic tilts with stabilizer pressure biofeedback and bent knee fall outs 2x10 9: stirring the pot at [facility] 1 plate x10 CW and x10 CCW facing both lateral directions. 10: seated at ist pull downs with lesly overhead elbows extended throughout 1 plate plus 4 round 2x10 emphasis on upright posture. Skilled Intervention: Patient was educated in proper exercise technique and purpose for exercises. Skilled judgment was used in selection of appropriate interventions. Correct performance of therapeutic exercises was facilitated with verbal, visual, and tactile cuing. Pt's vital signs were taken and recorded above. This information was shared with her and advised that her BP was normal (128/77). She was encouraged to contact her PCP or corrugator operator with any concerns in the future. Patient education as noted. Manual Therapy: Manual Traction: After therex, static manual lumbar belt traction x10 minutes with pt supine and LEs on leg rest and force to pt tolerance. Skilled Intervention: Manual skills to improve joint mobility, ROM, and decrease pain. Utilized anatomy knowledge of the therapist, and assessment of patient's response to intervention. Billing Therapeutic Exercise Treatment Minutes: 32 Manual TherapyTreatment Minutes: 10 Skilled Treatment Time Minutes (timed and untimed codes): 42 Total Session Time (minutes): 42 Session Start Time : 1548 Session Stop Time : [address] PT documented in this encounter [facility] 02-25-2023 History of Present illness Narrative Episode Visit Count: 4 Therapist That Will Accept/Oversee The Plan Of Care: Rd Ward PT Start of Care Date: 02/07/23 Onset Date: 08/08/22 Plan of Care Certification Date: 02/07/23 Next Certification Due Date: 03/14/23 Patient Identified by Name and Date of : Yes REHABILITATION AND SPORTS THERAPY PHYSICAL THERAPY TREATMENT NOTE ASSESSMENT: Priscilla Ramos tolerated the session with decreased symptoms. She demonstrated improvements in pain and numbness. The patient will continue to benefit from ongoing skilled physical therapy to progress toward set goals. PLAN FOR NEXT VISIT: Continue with core and postural strengthening as well as traction pending her response to traction today. SUBJECTIVE: Pt reports that overall her low back has been better but that her unrelated knee OA and L hip pains are increased lately. She reports that the numbness in L LE is less intense, less frequent and has a shorter duration. She is unable to determine if traction has been effective or not. She reports compliance with HEP every night and some mornings. Pain: Pain Pain Level: 7 Pain Location: Hip - Left, Knee - Left Description: Aching Frequency: Intermittent Post Treatment Pain Post Treatment Pain Level: Better (knee pain decreased from 7 to 5/10 and hip pain decreased from 5 to 4/10) Post Treatment Pain Location: Knee - Left, Hip - Left Post Treatment Symptoms: After session today and as she was leaving, OBJECTIVE MEASURES WITH LEVEL OF FUNCTION: TREATMENT: Therapeutic Exercise: 1: [employer] StepOne seat #10 x6 minutes (Pt provided an update on her condition and plan of care and HEP reviewed.) 2: supine LTR 2x10 3: supine B SKTC 3x30 seconds 4: supine DKTC 3x30 seconds 5: supine B piriformis stretch 3x30 seconds 6: posterior pelvic tilts 2x10 supine with stabilizer pressure biofeedback 7: sustained posterior pelvic tilts with stabilizer pressure biofeedback with B alt marching 2x10 8: supine sustained posterior pelvic tilts with stabilizer pressure biofeedback and bent knee fall outs 2x10 Skilled Intervention: Patient was educated in proper exercise technique and purpose for exercises. Skilled judgment was used in selection of appropriate interventions. Correct performance of therapeutic exercises was facilitated with verbal, visual, and tactile cuing. Patient education as noted. Manual Therapy: Manual Traction: After therex, static manual lumbar belt traction x10 minutes with pt supine and LEs on leg rest and force to pt tolerance. Skilled Intervention: Manual skills to improve joint mobility, ROM, and decrease pain. Utilized anatomy knowledge of the therapist, and assessment of patient's response to intervention. Billing Therapeutic Exercise Treatment Minutes: 33 Manual TherapyTreatment Minutes: 10 Skilled Treatment Time Minutes (timed and untimed codes): 43 Total Session Time (minutes): 43 Session Start Time : 1557 Session Stop Time : [address] PT documented in this encounter [facility] 02-20-2023 History of Present illness Narrative Episode Visit Count: 3 Therapist That Will Accept/Oversee The Plan Of Care: Rd Ward PT Start of Care Date: 02/07/23 Onset Date: 08/08/22 Plan of Care Certification Date: 02/07/23 Next Certification Due Date: 03/14/23 Patient Identified by Name and Date of : Yes REHABILITATION AND SPORTS THERAPY PHYSICAL THERAPY TREATMENT NOTE ASSESSMENT: Priscilla Ramos tolerated the session with fatigue and no issues. She demonstrated improvements in tolerance to additional core strengthening exercises without increase in pain. The patient will continue to benefit from ongoing skilled physical therapy to progress toward set goals. PLAN FOR NEXT VISIT: Continue with core stabilization strengthening in hooklying or seated pending pt's response to sitting exercises. SUBJECTIVE: Pt reports that her back is feeling okay today. Pt reports that the previous night her low back hurt all the way across. Pt feels that the traction irritated her back, would like to hold off on it today and possibly try it next week. Pain: Pain Pain Level: 2 Post Treatment Pain Post Treatment Pain Level: No Change OBJECTIVE MEASURES WITH LEVEL OF FUNCTION: Good posture noted with seated exercises. TREATMENT: Therapeutic Exercise: 1: [employer] StepOne seat #10 x6 minutes (1:1 throughout. Discusssd current HEP) 2: supine LTR 2x10 3: supine B SKTC 3x30 seconds 4: supine DKTC 3x30 seconds 5: supine B piriformis stretch 3x30 seconds 6: posterior pelvic tilts 2x10 supine with stabilizer pressure biofeedback 7: sustained posterior pelvic tilts with stabilizer pressure biofeedback with B alt marching 2x10 8: crunches in small range 1x10 9: Hooklying TA activation with push into 65 cm physioball 2x10 10: Seated GTB perturbations 3x15 right, left, and middle 11: Seated scapular retractions 2x10 Skilled Intervention: Patient was educated in proper exercise technique and purpose for exercises. Skilled judgment was used in selection of appropriate interventions. Correct performance of therapeutic exercises was facilitated with verbal and visual cuing. Billing Therapeutic Exercise Treatment Minutes: 41 Skilled Treatment Time Minutes (timed and untimed codes): 41 Total Session Time (minutes): 41 Session Start Time : 1445 Session Stop Time : 1526 [address] PT documented in this encounter [facility] 02-18-2023 History of Present illness Narrative Episode Visit Count: 2 Therapist That Will Accept/Oversee The Plan Of Care: Rd Ward PT Start of Care Date: 02/07/23 Onset Date: 08/08/22 Plan of Care Certification Date: 02/07/23 Next Certification Due Date: 03/14/23 Patient Identified by Name and Date of : Yes REHABILITATION AND SPORTS THERAPY PHYSICAL THERAPY TREATMENT NOTE ASSESSMENT: Priscilla Ramos tolerated the session with decreased symptoms. She demonstrated improvements in pain and B piriformis flexibility. The patient will continue to benefit from ongoing skilled physical therapy to progress toward set goals. PLAN FOR NEXT VISIT: Review, correct and progress HEP to tolerance. Continue with postural stretching and strengthening with flexion directional preference. Continue use of manual belt traction pending delayed response. SUBJECTIVE: Pt reports that overall she is the same as she was at evaluation 02/07/23. She reports the new onset of pain in posterior aspect of B calves without explanation starting 3 days ago. She reports compliance with HEP 1x day without pain or problems. Pain: Pain Pain Level: 5 Pain Location: Calf - Right, Calf - Left (posterior aspect) Description: Aching Frequency: Intermittent Post Treatment Pain Post Treatment Pain Level: 3 Post Treatment Symptoms: After traction and as she was leaving, pt reported feeling better with posterior calf pain decreased from 5/10 to 3/10. OBJECTIVE MEASURES WITH LEVEL OF FUNCTION: LE Flexibility Flexibility: Piriformis Flexibility R Piriformis Flexibility: 34 L Piriformis Flexibility: 38 TREATMENT: Therapeutic Exercise: 1: [employer]Fit StepOne seat #10 x6 minutes (Pt provided an update on her condition and plan of care options discussed.) 2: supine LTR 2x10 3: supine B SKTC 3x30 seconds 4: supine DKTC 3x30 seconds 5: supine B piriformis stretch 3x30 seconds 6: supine isometric abdominals via shoulder ext 2 second holds 2x10 7: posterior pelvic tilts 2x10 supine with stabilizer pressure biofeedback 8: sustained posterior pelvic tilts with stabilizer pressure biofeedback with B alt toe taps 2x10 9: crunches in small range 2x10 Skilled Intervention: Patient was educated in proper exercise technique and purpose for exercises. Skilled judgment was used in selection of appropriate interventions. Correct performance of therapeutic exercises was facilitated with verbal, visual, and tactile cuing. Patient education as noted. Manual Therapy: Manual Traction: After therex, static manual lumbar belt traction x10 minutes with pt supine and LEs on leg rest and force to pt tolerance. Skilled Intervention: Manual skills to improve joint mobility, ROM, and decrease pain. Utilized anatomy knowledge of the therapist, and assessment of patient's response to intervention. Billing Therapeutic Exercise Treatment Minutes: 38 Manual TherapyTreatment Minutes: 10 Skilled Treatment Time Minutes (timed and untimed codes): 48 Total Session Time (minutes): 48 Session Start Time : 154 Session Stop Time : [address] PT documented in this encounter [facility] 02-11-2023 Miscellaneous Notes Forms signed and faxed as instructed below. Nothing further at this time. RONI Capone Type of form: Medical Necessity for CPAP Form received via fax When form is completed, Fax form to [facility] at [phone] Form has been forwarded to Physician Desk: RONI Smalls documented in this encounter [facility] 02-07-2023 History of Present illness Narrative Episode Visit Count: 1 Therapist That Will Accept/Oversee The Plan Of Care: Rd Ward PT Start of Care Date: 02/07/23 Onset Date: 08/08/22 Plan of Care Certification Date: 02/07/23 Next Certification Due Date: 03/14/23 Patient Identified by Name and Date of : Yes REHABILITATION AND SPORTS THERAPY PHYSICAL THERAPY EVALUATION PLAN OF CARE: Assessment: Priscilla Ramos presents with chief complaint of L LE numbness, weakness and instability that interferes with walking, stair negotiation . She presents with impairments in gait, overall function, strength, and symptom management. PROMIS (Patient-Reported Outcomes Measurement Information System) scores were reviewed and physical function domain identified as a rehabilitation concern. Prognosis for therapy is Good due to: current objective clinical presentation, good overall health status, positive past response to therapy, good support system/ coping skills, within-session changes. She will benefit from skilled therapy services to meet the goals established for this plan of care as noted below. Classification Low Back Pain Subgroup Classification: Core stabilization subgroup: recommended visits 10. Core Stabilization Subgroup Classification based on: pain with transitional movements Goals for Episode of Care: created on 02/07/23 through 03/14/23 Independent in home exercises. Patient will decrease pain rating by 2 points to meet minimal clinical important difference for numeric pain rating scale. Restore pain-free lumbar ROM to WFL to allow for improved functional mobility Stand / Walk without limitations, without pain/symptoms. Patient will be able to tolerate walking and stairs without increased symptoms. Patient will increase strength of core and postural muscles to WFL to allow for improved postural maintenance. Patient Goals: decrease numbness and improve strength and stability of L LE. Planned Interventions, Frequency, and Duration: Current Frequency: 2x/week Duration: 5 weeks Total Number of Visits Planned: 10 Planned Treatment Interventions: Therapeutic exercise (76709), Neuromuscular re-education (29909), Manual therapy (90219), Therapeutic activities (41716), Self-correction management (35500), Patient/Family/Caregiver Education, Body Mechanics Training PLAN FOR NEXT VISIT: Review, correct and progress HEP to tolerance. Continue with postural stretching and strengthening with flexion directional preference. Consider use of manual belt traction. Patient demonstrates good understanding of plan of care and treatment. The above goals and plan of care were discussed and agreed upon by patient/family. SUBJECTIVE: She reports intermittent numbness, tingling and radicular weakness in L LE that has led to 1 fall in July 2022. She report that these symptoms are getting progressively worse. She reports that the low back pain that she received therapy for several years ago improved with HEP but HEP compliance has not helped with numbness, tingling and weakness. She reports that she has been compliant with stretching and pain control HEP but not strengthening. Patient Goals: decrease numbness and improve strength and stability of L LE. Functional Limitations: walking, stair negotiation Prior Level of Function: Independent with restrictions (chronic low back pain) Independent with the following restrictions: functional mobility limitations Relevant History Employment: Retired Home Environment Patient Lives With: Family (adult son lives with her) Home Type: Multi-Level Entry To Home: No Stairs Number Of Stairs To Bed/Bath: 14 Stairs to Bed/Bath with: Unilateral Rail Intake Information: Prescription present Previous Treatment: Physical Therapy , Chiropractor , Massage (chiropractor and massage therapy 1x month) Falls Interview: Fall with injury in the last year Falls Intervention: More thorough falls assessment to be performed Red Flags Vertebral Fracture Red Flags: Female Vertebral Fracture Clinical Reasoning: No identified risk factors Abdominal Aortic Aneurysm Clinical Reasoning: No identified risk factors. Cancer Clinical Reasoning: No identified risk factors. Infection Clinical Reasoning: No identified risk factors. Cauda Equina Syndrome Clinical Reasoning: No identified risk factors. Red Flags - Cervical Cancer Clinical Reasoning: No identified risk factors. Infection Clinical Reasoning: No identified risk factors. Spine History Symptoms Location at Onset: Thigh, Calf, Foot (left only) Symptoms Since Onset: Worsening Pain is Worse Always: Walking Pain is Better Always: Sitting Previous Episodes: Yes Previous Spine Episodes: resolved with PT Sleeping Position: Side lying right, Side lying left, Supine Sleep Affected by Pain: Not affected by pain Pain: Pain Pain Level: 0 Description: Numbness, Tingling (She is much more concerned with numbness, tingling and weakness) Post Treatment Pain Post Treatment Pain Level: Better Post Treatment Symptoms: I know more now PROMIS Scales Higher is Better 02/04/2023 01/26/2023 10/07/2022 Phys Func - Score - 40 (mild dysfunction) 40 (mild dysfunction) Phys Func - Percentile - 16 % 16 % Self-Eff Symptom - Score 44 (Average) - - Self-Eff Symptom - Percentile 27 % - - T-scores: mean of general population = 50. 5 points is clinically meaningfully difference Percentiles provide an indication of how the patient's score ranks in relation to the general population. Higher percentile rankings indicate better function/quality of life. 50th percentile is the average of the general population and indicates half of respondents had a worse score. OBJECTIVE MEASURES WITH LEVEL OF FUNCTION: Sensation - Lumbar Sensation: Impaired Impaired Sensation: (Pt reports numbness and tingling in L LE consistently) Lumbar Spine AROM Lumbar Flexion: Normal Lumbar Extension: Normal Lumbar R Side-Bend: Major limitation Lumbar L Side-Bend: Moderate limitation Lumbar R Rotation: Minimal limitation Lumbar L Rotation: Minimal limitation LE Flexibility Flexibility: Piriformis Flexibility R Piriformis Flexibility: 25 L Piriformis Flexibility: 30 LE Strength L Great Toes Extension (L5, S1): 2+/5 Functional Strength Functional Strength: Pt's reported functional difficulties, findings of previous MRIs and the reported chronicity of symptoms indicate that she will certainly benefit from increased core/postural strength. Special Tests - Hip and Spine Hip and Spine Special Tests: SLR Test SLR Test: Right Negative, Left Negative Education: Education Learning Preferences: Demonstration, Explanation, Performance, Printed Materials Barriers: None Learning/educational needs: Procedure / Surgery, Lifestyle changes, Plan of Care, Home exercise program, Body Mechanics Education Provided: Yes, see treatment interventions for education provided Education Provided To: Patient Education Mode/Type: Demonstration, Explanation/Discussion, Literature/Printed Materials, Performance Response to Education/Teach Back: States/Identifies, Return Demonstration, Requires Review/Additional Education TREATMENT: PT Treatment Interventions: Therapeutic Exercise Evaluation Therapeutic Exercise: 1: Pt was educated on the anatomy of lumbar spine, likely source of symptoms and rationale for proposed treatment plan. She was educated on her directional preference and how this fits into her treatment plan. She was reminded to stop any exercise that causes increased pain. 2: *supine LTR 2x10 3: *supine B SKTC 3x30 seconds 4: *supine DKTC 3x30 seconds 5: *supine B piriformis stretch 3x30 seconds 6: *supine isometric abdominals via shoulder ext 2 second holds 2x10 Skilled Intervention: Patient was educated in proper exercise technique and purpose for exercises. Reviewed and educated patient on additions/changes for home exercise program as above (*). Skilled judgment was used in selection of appropriate interventions. Provided written instruction for home exercise program to facilitate proper performance and compliance. Correct performance of therapeutic exercises was facilitated with verbal, visual, and tactile cuing. Patient education as noted. Billing * Evaluation Low Complexity: 1 Unit Therapeutic Exercise Treatment Minutes: 20 Skilled Treatment Time Minutes (timed and untimed codes): 40 Total Session Time (minutes): 40 Session Start Time : 1505 Session Stop Time : [address] PT documented in this encounter [facility] 01-30-2023 Instructions Jovany Bahena DO - 01/30/2023 3:15 PM EDT Images from the original note were not included. Chronic Lumbar Radiculopathy (Leg Pain) Overview: Symptoms of a pinched nerve in the leg (lumbar radiculopathy) include numbness, tingling and even weakness. Leg pain is usually worse than back pain. The cause of nerve impingement may include a protruding (herniated) disc, bony or joint overgrowth or both. Lumbar spinal stenosis is a condition which results from narrowing of the spinal canal which contains the lower spinal nerves. This condition typically produces leg symptoms when standing or walking which are relieved by sitting. The prognosis for a full recovery with conservative (non-surgical) treatment is good in most persons. X-rays or scans (MRI or CT) are not required in most patients before starting treatment but may be performed if symptoms aren't improving after about 6 weeks despite medical treatment. Treatment: Pain-relieving anti-inflammatory medications such as ibuprofen or naproxen are recommended. Acetaminophen (Tylenol) is recommended if you cannot take anti-inflammatory medications. Medications effective for nerve pain such as gabapentin (Neurontin), pregabalin (Lyrica) or some antidepressants may be helpful for leg pain. A short course of oral steroids (prednisone or Medrol) may help alleviate severe, acute inflammation. For persistent pain despite oral medications and physical therapy, an epidural corticosteroid injection (block) may be recommended if an MRI or CT scan confirms nerve impingement (pinched nerve). Remaining as active as possible and resuming normal activities are recommended to speed recovery. Physical therapy is recommended for development of an active exercise program. If weakness is developing in the affected leg or if pain is severe despite medical treatment, a surgical consultation may be recommended if an MRI or CT scan confirms nerve impingement. Follow Up See your health care provider if: The pain doesn't improve or worsens You notice increasing weakness in the leg(s) You experience problems with balance or walking You notice difficulty passing urine or controlling your bowels These are warning signs or red flags that require prompt, urgent medical attention. SIGNATURE: Jovany Bahean DO PATIENT NAME: Priscilla Ramos DATE: January 30, 2023 TIME: 3:15 PM documented in this encounter [facility] 01-30-2023 History of Present illness Narrative Images from the original note were not included. Spine Care Path Radicular Leg Pain - Chronic (> 12 weeks) Initial Exam SUBJECTIVE HISTORY OF PRESENT ILLNESS: Priscilla Ramos is a 67 year old female who presents with a chief complaint of low back and leg pain and is seen in consultation requested by Prince West CNP for an opinion regarding low back and leg pain. My final recommendations will be communicated back to the requesting physician by way of shared medical record or letter via US mail. Patient presents today complaining of lumbar spine pain as well as pain radiating into the left lower limb. Patient describes pain as dull pain. Radiates into the lateral aspect of the thigh into the lateral calf to the entire foot. Reports she has dealt with low back pain on and off over the last 3 years, however, over the last year has noticed significant worsening in her leg and back pain complaints. Patient has been started on gabapentin and uses Tylenol for pain relief. She reports back in July slipped and fell while walking on pavement. Ended up breaking her left wrist. Was evaluated by her primary care physician. Reports she was recommended to schedule an appointment with spine. 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 Symptoms improve with sitting down. Reports sensation of weakness and numbness on the left lower limb. Other Issues Addressed at the Visit Today: None. Precipitating Event: See above PAIN EVALUATION 01/26/2023 1158 01/30/2023 1458 Pain Level: -- 3 Pain Location: Leg-Left Back-Lower Description: Numbness Dull Duration Amount of Time: 15 -- Duration Units: Minutes Months Frequency: Intermittent Continuous Intervention/Comfort measure: Reposition;Relaxation;Other: See comment -- Comments: Sitting -- Pain Radiation: See Above Aggravating Factors: Walking, After approximately half hour after getting up notices significant exacerbation of her symptoms. Alleviating Factors: Massage, Chiro Pain Ratio: 70 % back pain, 30 % leg pain Prior Therapy: gabapentin and Tylenol Litigation: No Workers' Compensation: No YELLOW & BLUE FLAGS No-Neg Attitude; Back Pain is Disabling No-Avoiding Activity (for Fear of Pain) YES-Depression or Anxiety Disorders No-Social Problems No-Substance Use Disorder No-Job Dissatisfaction No-Financial Disincentives Patient Entered Questionnaires Spine Questions 01/26/2023 Pain Location: Lower back Pain Duration: 1 to 5 years Pain over last 6 months: Less than half the days in the past 6 months Symptoms from neck/cervical spine: Yes Employment Status: Retired Involved in law suit/legal claim: No Spine Red Flags 01/26/2023 Any type of cancer: No Unexplained fever: No Bowel or bladder disfunction: No Unintentional weight loss: No Osteoporosis: No Neck Questionnaires 01/26/2023 Benzel Modified SEUN Score 13 (A lower score indicates increased pain and issues.) PROMIS Score Percentiles Physical Health 09/10/2022 10/07/2022 01/26/2023 Physical Function Percentile - 16* 16* Sleep Percentile 62 - 34 Fatigue Percentile - 24* 24* Pain Interference Percentile - 12 12 PROMIS SOCIAL ROLE SCORE 01/30/2021 03/01/2021 01/26/2023 Social Role Satisfaction Percentile 31 31 31 PROMIS Global Health Scale 05/30/2022 09/10/2022 01/26/2023 Physical Health Percentile 10 10 10 Mental Health Percentile 26* 26* 26* Percentiles provide an indication of how the patient's score ranks in relation to the general population. Higher percentile rankings indicate better function/quality of life. 50th percentile is the average of the general population and indicates half of respondents had a worse score. Depression Screening: PHQ-9 05/29/2021 09/10/2022 01/26/2023 Score 7 7 6 PHQ-9 Self Harm 05/29/2021 09/10/2022 01/26/2023 Question 9 Not at all Not at all Not at all PHQ-9 Self-Harm (Item 9) response options: 0 Not at all 1 Several days 2 More than half the days 3 Nearly every day PHQ-9 Levels: 0-4 No - mild depression 5-9 Mild depression 10-14 Moderate depression 15-19 Moderately severe depression 20-27 Severe depression ACTIVE PROBLEM LIST Fibromyalgia Dysthymic Disorder Dyslipidemia Osteopenia Arthrosis Dysmetabolic Syndrome Obstructive Sleep Apnea (Adult) (Pediatric) Insomnia Elevated Antinuclear Antibody (Kelton) Level Encounter for Screening for Malignant Neoplasm of Colon Class 3 Severe Obesity Due to Excess Calories Without Serious Comorbidity With Body Mass Index (Bmi) of 40.0 to 44.9 in Adult (Hcc) Acquired Hypothyroidism Lumbar Spondylosis Spinal Stenosis of Lumbar Region With Neurogenic Claudication Pain in Joint, Multiple Sites Rls (Restless Legs Syndrome) Chronic Pain of Both Shoulders Htn (Hypertension) Cad (Coronary Artery Disease) Depression, Recurrent (Hcc) Intermittent Claudication (Hcc) PAST MEDICAL HISTORY Diagnosis Date Abnormal mammogram, unspecified 06/27/2006 Acquired hypothyroidism 07/04/2017 CAD (coronary artery disease) CAD (coronary artery disease) 07/25/2022 Calculus of gallbladder with chronic cholecystitis without obstruction 08/01/2015 Corns and callosities 01/24/2014 Diarrhea Dysphagia 05/27/2015 feeling like food sits in bottom of esophagus if eats heavier than usual meal Dysthymic disorder Depression (non-psychotic) Elevated antinuclear antibody (KELTON) level 08/25/2014 Essential hypertension HTN (hypertension) 07/25/2022 Internal hemorrhoids without mention of complication Left wrist sprain 07/2022 Myalgia and myositis, unspecified FIBROMYALGIA Obesity, unspecified Obesity Obstructive sleep apnea D[facility] [place] Osteoarthritis of multiple joints PAIN LEG (Right) 02/20/2005 Temporomandibular joint disorders, unspecified 11/23/2006 PAST SURGICAL HISTORY Procedure Laterality Date ARTHRP KNE CONDYLE&PLATU MEDIAL&LAT COMPARTMENTS 09/2011 right DELIVERY ONLY , low cervical DELIVERY ONLY , low cervical COLONOSCOPY 08/01/2022 repeat in 5 years COLONOSCOPY FLX DX W/COLLJ SPEC WHEN PFRMD 07/29/2017 Colonoscopy COLONOSCOPY W/BIOPSY SINGLE/MULTIPLE 02/10/2007 LAPS SURG CHOLECYSTECTOMY W/CHOLANGIOGRAPHY 08/17/2015 LEFT HEART CATH,PERCUTANEOUS PAST SURGICAL HISTORY OF foot-left PAST SURGICAL HISTORY OF left foot - no hardware STEREOTACTIC CORE BIOPSY 07/04/2006 UOQ RIGHT AVANI W/WO REMOVAL TUBE OVARY 1999 Hysterectomy, AVANI ovaries remain Social History Tobacco Use Smoking status: Never Smokeless tobacco: Never Vaping Use Vaping Use: Never used Substance Use Topics Alcohol use: Yes Alcohol/week: 18.0 standard drinks of alcohol Types: 18 Glasses of wine per week Comment: wine with supper Drug use: No FAMILY HISTORY Problem Relation Age of Onset Diabetes Mother late in life at 75 Stroke Mother x3 Cancer Father myeloma (from immunesuppressants) at age 80 of chf and perf. bowel other (ESRD) Father had sudden renal failure; had kidney transplant at 68yo Thyroid Brother Hypertension Son No Known Problems Son Anesthesia Problems No Family History Blood Clots No Family History Clotting Disorder No Family History ALLERGIES No Known Allergies CURRENT MEDICATIONS: acetaminophen (TYLENOL 8 HOUR ORAL)^Take by mouth.^Disp: ^Rfl: acetaminophen (TYLENOL EXTRA STRENGTH) 500 mg tablet^Take 1,000 mg by mouth every 8 hours as needed for pain.^Disp: ^Rfl: amLODIPine (NORVASC) 10 mg tablet^Take 10 mg by mouth once daily.^Disp: ^Rfl: aspirin 81 mg chewable tablet^Take 81 mg by mouth once daily.^Disp: ^Rfl: Biotin (NAIL-EX) 2,500 mcg ORAL Tab^Take one(1) tablet daily.^Disp: ^Rfl: 0 BIPAP^^Disp: ^Rfl: buPROPion XL (WELLBUTRIN XL) 150 mg 24 hr tablet^Take one(1) tablet daily.^Disp: ^Rfl: 0 Ca/D3/mag ox/zinc/commercial helicopter pilot/jose/bor (CALCIUM 600-D3 PLUS, MAG-ZINC, ORAL)^^Disp: ^Rfl: cholecalciferol (VITAMIN D3) 2,000 unit tablet^Take 2,000 Units by mouth once daily. ^Disp: ^Rfl: colestipol (COLESTID) 1 gram tablet^Take 1-2 tablets by mouth once daily. As directed^Disp: 60 tablet^Rfl: 2 CPAP^Bipap 17/13 cm H2O, Heat Humidity, suitable mask, [employer], opt Chinstrap, G47.33.^Disp: 1 Device^Rfl: 0 CYANOCOBALAMIN, VITAMIN B-12, (VITAMIN B-12 ORAL)^Take by mouth.^Disp: ^Rfl: DAILY VITAMIN TAB^Take one(1) tablet daily.^Disp: ^Rfl: 0 diclofenac (VOLTAREN ARTHRITIS PAIN) 1 % topical gel^Apply 2 g to affected area four times daily as needed (wrist pain).^Disp: 100 g^Rfl: 0 FLUoxetine HCl (PROZAC) 40 mg capsule^Take 1 capsule by mouth once daily. (Dr. Garcia)^Disp: ^Rfl: gabapentin (NEURONTIN) 400 mg capsule^Take 2 capsule 60-90 minutes before bedtime.^Disp: 180 capsule^Rfl: 0 hyperimmune colostrum, bovine 200 mg tab^Take 2 tablets by mouth twice daily.^Disp: ^Rfl: levothyroxine (SYNTHROID) 25 mcg tablet^Take 1 tablet by mouth once daily.^Disp: 90 tablet^Rfl: 3 losartan (COZAAR) 100 mg tablet^Take 100 mg by mouth once daily.^Disp: ^Rfl: Qwgta-0-NNR-EPA-Fish Oil 300-1,000 mg cap^Take 1,000 mg by mouth twice daily.^Disp: ^Rfl: OTC NUTRITIONAL SUPPLEMENT^Take 2 capsules by mouth twice daily. Fibro Care^Disp: ^Rfl: [id number]/sod sulf,bicarb,Cl/KCl (GOLYTELY ORAL)^Take by mouth.^Disp: ^Rfl: rosuvastatin (CRESTOR) 5 mg tablet^Take 1 tablet by mouth daily at bedtime. As directed^Disp: 90 tablet^Rfl: 3 traZODone (DESYREL) 50 mg tablet^Take 1 tablet by mouth daily at bedtime.^Disp: ^Rfl: turmeric/turmeric ext/pepr ext (TURMERIC-TURMERIC EXT-PEPPER) 900-100-5 mg cap^^Disp: ^Rfl: ubidecarenone Q-10 (COENZYME Q-10) 10 mg cap^Take 50 mg by mouth once daily.^Disp: ^Rfl: ZINC ORAL^Take by mouth.^Disp: ^Rfl: REVIEW OF SYSTEMS: Review of Systems Constitutional: Negative Eyes: Negative Hent: Negative Cardiovascular Positive for Leg pain with walking Respiratory: Negative GI: Negative : Negative Endocrine: Negative Musculoskeletal Positive for Back Pain and Muscle Pain Integumentary: Negative Heme/Lymph Positive for Swelling of Arm or Leg Allergy/Immunologic: Negative Neurologic Positive for Numbness/Tingling and Weakness Psychiatric: Negative Patient's Review of Systems has been reviewed with the patient and updated as appropriate. OBJECTIVE: PHYSICAL EXAM Resp 16 Ht 165.1 cm (5' 5) Wt 115.2 kg (254 lb) BMI 42.27 kg/m GENERAL APPEARANCE: Well appearing, well-hydrated, well nourished and alert SKIN: Head, neck, trunk, and extremities dry, intact and without lesions HEART: Peripheral pulses: normal, 2+ bilaterally and symmetric, Edema: No LUNGS: even and non-labored breathing, normal chest excursion LYMPHATICS: No palpable lymphadenopathy in the neck, axilla, or groin NEURO/PSYCH: oriented to time, place, and person, speech normal, mental status intact GAIT: normal, toe walking normal, heel walking normal, able to tandem gait POSTURE: Posture and spinal curves are normal PALPATION: paraspinal tenderness; lumbar pain to palpation bilateral lower lumbar paraspinal muscles MUSCULOSKELETAL: Extended Low Back & Leg Exam Lumbar Range of Motion Flexion 10-12 inches from floor Extension Restricted RIGHT LEFT Lateral Bending Limited Limited Oblique Extension Decreased Decreased Leg Raise Straight Leg Raise Negative Positive; 60 degrees Contralateral Straight Leg Raise Negative Negative DTRs Knee Hypo-reflexive Hypo-reflexive Ankle Hypo-reflexive Hypo-reflexive Medial Hamstring Hypo-reflexive Normal Babinski normal normal Strength of Lower Extremities Extensor Hallux Longus 5/5 4/5 Ankle Dorsiflexion 5/5 5/5 Ankle Plantarflexion 5/5 5/5 Knee Extension 5/5 5/5 Key's Exam: Deferred Hip Range of Motion RIGHT LEFT Flexion Normal Normal Extension Normal Normal Abduction Normal Normal Adduction Normal Normal Internal Rotation Normal Mildly Restricted External Rotation Mildly Restricted Mildly Restricted Hip Exam RIGHT LEFT KAREEN Exam Normal Abnormal Trochanteric Bursa Tenderness Normal Normal Gaenslen's Maneuver Normal Normal Shahriar's Test (IT-Band Pathology) Normal Normal @[id number]@ Cervical Range of Motion Flexion Normal Extension Restricted RIGHT LEFT Rotation Full ROM without pain Full ROM without pain Lateral Bend Full ROM without pain Full ROM without pain Upper Body Reflex Exam RIGHT LEFT Reflex Status Reflex Status Biceps 2+ Normal 2+ Normal Triceps 2+ Normal 2+ Normal Brachioradialis 2+ Normal 2+ Normal Inverted Radial 2+ Normal 2+ Normal Weiss's Sign absent absent Upper Extremity Strength RIGHT LEFT Strength (MMT) Strength (MMT) Shoulder Abduction 5/5 5/5 Biceps 5/5 5/5 Triceps 5/5 5/5 Resisted Suppination 5/5 5/5 Wrist Extension 5/5 5/5 Interossei 5/5 5/5 Shoulder Range of Motion RIGHT LEFT Flexion Normal Normal Extension Normal Normal Abduction Normal Normal Adduction Normal Normal Internal Rotation Normal Normal External Rotation Normal Normal Shoulder Tests N/A NEUROSENSORY: On sensory exam no evidence of sensory deficits in the upper or lower limbs Neuro Tests: None Data Review: Lumbar MRI 2020: L2-L3: Severe spinal canal stenosis secondary to disc bulging, dorsal hypertrophic endplate spurring, dorsal epidural fat and hypertrophic degenerative facet arthrosis. No significant foraminal stenosis. L3-L4: Severe spinal canal stenosis secondary to disc bulging, dorsal hypertrophic spurring, dorsal epidural fat and hypertrophic right greater than left degenerative facet arthrosis. Moderate to severe effacement of the right subarticular zone. Moderate bilateral foraminal stenosis. L4-L5: Severe spinal canal stenosis secondary to disc bulging/disc uncovering, dorsal hypertrophic endplate degenerative changes, dorsal epidural fat, and hypertrophic left greater the right degenerative facet arthrosis. Severe effacement of left greater than right subarticular zones. Severe right and moderate left foraminal stenosis. L5-S1: Mild spinal canal stenosis secondary to disc bulging. Advanced hypertrophic degenerative facet arthrosis. Mild left greater than right foraminal stenosis. ASSESSMENT/PLAN (M47.816) Lumbar spondylosis Comment: Patient with pain in the lower lumbar spine largely mechanical in nature, however, some of patient's left-sided lower limb symptoms may suggest underlying lumbar radiculitis. Have scheduled patient for course of physical therapy to work on conservative treatment and home exercise program. If her symptoms fail to improve with course of physical therapy discussed potentially pursuing interventional procedures or proceeding with repeat MRI imaging. Patient's prior lumbar MRI imaging showed evidence of degenerative disc changes several levels with variable degrees of foraminal narrowing. On the left there is likely evidence of L5 nerve compression due to lateral recess stenosis at the L4-L5 level Plan: [facility], PATIENT PLACED ON SPINE CARE PATH, CONSULT TO PHYSICAL THERAPY (M54.50) Low back pain without sciatica, unspecified back pain laterality, unspecified chronicity Plan: CON[facility]ULT TO [facility], PATIENT PLACED ON SPINE CARE PATH, CONSULT TO PHYSICAL THERAPY Imaging Ordered: None SIGNATURE: Jovany Bahena DO PATIENT NAME: Priscilla Ramos DATE: January 30, 2023 TIME: 3:15 PM CC: Sent electronically [place] [id number] [id number] [address] encounter [facility] 12-12-2022 Miscellaneous Notes Patient contacted and appt made for today with Sarina Reeves CNP, as advised. Shama Tabares RN Patient needs appointment Ping Ferrera APRN.CNP documented in this encounter [facility] 11-26-2022 Miscellaneous Notes PDMP website checked and validated. All prescriptions have been APPROPRIATELY filled. No suspicious activity was identified. 11/26/2022 by Sahara Boateng MD TC to pt who is out of medication. Does not know where the 6 capsules went. Please advise if a new script can be sent to [facility] or if she will need to wait until the . Faye Toth LPN Pt calling to let you know she is out of Gabapentin and does not have any for tonight. Please contact the pharmacy to release medication early. Pt reports she has been taking this for a long time and does not want to wait till 11-29-22. Please advise pt when this has been done. Sarah Monson LPN documented in this encounter [facility] 11-26-2022 Miscellaneous Notes Pt was seen in the office. Sarah Monson LPN Pt reports she is taking Crestor and believes she is having multiple side effects. Reports she was started on Crestor 0.5 tabs 3 days/wk, then that was increased to 1 tab 3 days/wk, and then 12 days ago, that was increased to 1 tab/day. Reports today she is feeling very tired, weak, and achy all over. Reports that she has a hx of fibromyalgia and arthritis, which makes it hard for her to determine the cause of this aching. Reports that she runs out of energy quickly. Reports heart palpitations that she has had off/on over the past year, which has worsened recently. Reports she had a heart cath in the last year, which showed 50% blockage in 1 of her arteries. Reports legs and ankles having been swelling over the past 2 nights. Scheduled same-day appt for evaluation of symptoms. documented in this encounter [facility] 11-23-2022 Instructions Ping Ferrera APRN.ISAURO - 11/23/2022 12:14 PM EDT Hold Crestor until notified otherwise. Consider calling Dr. Gaming's office to review your symptoms documented in this encounter [facility] 11-23-2022 History of Present illness Narrative CC: Patient presents with: medication side effects HPI Priscilla Ramos is a 67 year old female who presents today for above. Patient notes symptoms of leg swelling, body aches, muscle weakness, fatigue, palpitations, SOB with moderate exertion and chest tightness ever since dose of Crestor was increased from 5 mg to 10 mg daily a few weeks ago. She has not tried stopping the Crestor. She increased CoQ10 to 300 mg daily with mild improvement. Denies orthopnea, PND, weight gain, SOB at rest, hemoptysis. History of fibromyalgia, hard to tell if some of her symptoms are due to this. She was recently diagnosed with CAD, stress test and heart cath done in June. Her corrugator operator is Dr. Gaming. She has not notified him of symptoms. Denies any new medications/dose changes, recent illnesses, illicit drug use. Drinks two glasses of wine daily. Review of Systems Constitutional: Negative for appetite change, chills, fever and unexpected weight change. Respiratory: Negative for cough and wheezing. Gastrointestinal: Negative for blood in stool, diarrhea, nausea and vomiting. Endocrine: Negative for cold intolerance, heat intolerance, polydipsia, polyphagia and polyuria. Genitourinary: Negative for dysuria, frequency, hematuria and urgency. Musculoskeletal: Negative for back pain and joint swelling. Skin: Negative for color change, pallor and rash. Neurological: Negative for dizziness, tremors, seizures, syncope, facial asymmetry, speech difficulty, weakness, light-headedness, numbness and headaches. Hematological: Negative for adenopathy. Does not bruise/bleed easily. PAST MEDICAL HISTORY Diagnosis Date Abnormal mammogram, unspecified 06/27/2006 Acquired hypothyroidism 07/04/2017 CAD (coronary artery disease) CAD (coronary artery disease) 07/25/2022 Calculus of gallbladder with chronic cholecystitis without obstruction 08/01/2015 Corns and callosities 01/24/2014 Diarrhea Dysphagia 05/27/2015 feeling like food sits in bottom of esophagus if eats heavier than usual meal Dysthymic disorder Depression (non-psychotic) Elevated antinuclear antibody (KELTON) level 08/25/2014 Essential hypertension HTN (hypertension) 07/25/2022 Internal hemorrhoids without mention of complication Left wrist sprain 07/2022 Myalgia and myositis, unspecified FIBROMYALGIA Obesity, unspecified Obesity Obstructive sleep apnea [facility] Osteoarthritis of multiple joints PAIN LEG (Right) 02/20/2005 Temporomandibular joint disorders, unspecified 11/23/2006 PAST SURGICAL HISTORY Procedure Laterality Date ARTHRP KNE CONDYLE&PLATU MEDIAL&LAT COMPARTMENTS 09/2011 right DELIVERY ONLY , low cervical DELIVERY ONLY , low cervical COLONOSCOPY 08/01/2022 repeat in 5 years COLONOSCOPY FLX DX W/COLLJ SPEC WHEN PFRMD 07/29/2017 Colonoscopy COLONOSCOPY W/BIOPSY SINGLE/MULTIPLE 02/10/2007 LAPS SURG CHOLECYSTECTOMY W/CHOLANGIOGRAPHY 08/17/2015 LEFT HEART CATH,PERCUTANEOUS PAST SURGICAL HISTORY OF foot-left PAST SURGICAL HISTORY OF left foot - no hardware STEREOTACTIC CORE BIOPSY 07/04/2006 UOQ RIGHT AVANI W/WO REMOVAL TUBE OVARY 2000 Hysterectomy, AVANI ovaries remain ALLERGIES Patient has no known allergies. MEDICATIONS acetaminophen (TYLENOL EXTRA STRENGTH) 500 mg tablet^Take 1,000 mg by mouth every 8 hours as needed for pain.^Disp: ^Rfl: rosuvastatin (CRESTOR) 5 mg tablet^Take 1 tablet by mouth daily at bedtime. As directed^Disp: 90 tablet^Rfl: 3 [START ON 11/29/2022] gabapentin (NEURONTIN) 400 mg capsule^Take 2 capsule 60-90 minutes before bedtime. Do not start before November 29, 2022.^Disp: 180 capsule^Rfl: 0 colestipol (COLESTID) 1 gram tablet^Take 1-2 tablets by mouth once daily. As directed^Disp: 60 tablet^Rfl: 2 diclofenac (VOLTAREN ARTHRITIS PAIN) 1 % topical gel^Apply 2 g to affected area four times daily as needed (wrist pain).^Disp: 100 g^Rfl: 0 [id number]/sod sulf,bicarb,Cl/KCl (GOLYTELY ORAL)^Take by mouth.^Disp: ^Rfl: (Patient not taking: Reported on 09/10/2022) acetaminophen (TYLENOL 8 HOUR ORAL)^Take by mouth.^Disp: ^Rfl: (Patient not taking: Reported on 11/09/2022) BIPAP^^Disp: ^Rfl: amLODIPine (NORVASC) 10 mg tablet^Take 10 mg by mouth once daily.^Disp: ^Rfl: losartan (COZAAR) 100 mg tablet^Take 100 mg by mouth once daily.^Disp: ^Rfl: aspirin 81 mg chewable tablet^Take 81 mg by mouth once daily.^Disp: ^Rfl: ZINC ORAL^Take by mouth.^Disp: ^Rfl: levothyroxine (SYNTHROID) 25 mcg tablet^Take 1 tablet by mouth once daily.^Disp: 90 tablet^Rfl: 3 ubidecarenone Q-10 (COENZYME Q-10) 10 mg cap^Take 50 mg by mouth once daily.^Disp: ^Rfl: OTC NUTRITIONAL SUPPLEMENT^Take 2 capsules by mouth twice daily. Fibro Care^Disp: ^Rfl: Vvlrx-7-QHK-EPA-Fish Oil 300-1,000 mg cap^Take 1,000 mg by mouth twice daily.^Disp: ^Rfl: hyperimmune colostrum, bovine 200 mg tab^Take 2 tablets by mouth twice daily.^Disp: ^Rfl: Ca/D3/mag ox/zinc/commercial helicopter pilot/jose/bor (CALCIUM 600-D3 PLUS, MAG-ZINC, ORAL)^^Disp: ^Rfl: turmeric/turmeric ext/pepr ext (TURMERIC-TURMERIC EXT-PEPPER) 900-100-5 mg cap^^Disp: ^Rfl: CPAP^Bipap 17/13 cm H2O, Heat Humidity, suitable mask, [employer] supplies, opt Chinstrap, G47.33.^Disp: 1 Device^Rfl: 0 cholecalciferol (VITAMIN D3) 2,000 unit tablet^Take 2,000 Units by mouth once daily. ^Disp: ^Rfl: FLUoxetine HCl (PROZAC) 40 mg capsule^Take 1 capsule by mouth once daily. (Dr. Garcia)^Disp: ^Rfl: traZODone (DESYREL) 50 mg tablet^Take 1 tablet by mouth daily at bedtime.^Disp: ^Rfl: CYANOCOBALAMIN, VITAMIN B-12, (VITAMIN B-12 ORAL)^Take by mouth.^Disp: ^Rfl: buPROPion XL (WELLBUTRIN XL) 150 mg 24 hr tablet^Take one(1) tablet daily.^Disp: ^Rfl: 0 Biotin (NAIL-EX) 2,500 mcg ORAL Tab^Take one(1) tablet daily.^Disp: ^Rfl: 0 DAILY VITAMIN TAB^Take one(1) tablet daily.^Disp: ^Rfl: 0 FAMILY HISTORY Problem Relation Age of Onset Diabetes Mother late in life at 75 Stroke Mother x3 Cancer Father myeloma (from immunesuppressants) at age 80 of chf and perf. bowel other (ESRD) Father had sudden renal failure; had kidney transplant at 68yo Thyroid Brother Hypertension Son No Known Problems Son Anesthesia Problems No Family History Blood Clots No Family History Clotting Disorder No Family History Social History Tobacco Use Smoking status: Never Smokeless tobacco: Never Vaping Use Vaping Use: Never used Substance Use Topics Alcohol use: Yes Alcohol/week: 18.0 standard drinks of alcohol Types: 18 Glasses of wine per week Comment: wine with supper Drug use: No PHYSICAL EXAM BP 128/71 Pulse 86 Resp 16 Wt 114.3 kg (252 lb) BMI 41.73 kg/m General Appearance: well appearing, in no acute distress, alert Pysch: mood and affect broad and appropriate Skin: Skin color, texture, turgor normal for age; Eyes: PERRLA, conjunctiva pink and moist, no icterus, sclera white, non-injected Neck: Thyroid normal size and symmetric without palpable nodules, Neck supple, No adenopathy Oropharynx: lips normal without lesions, tongue midline and normal, soft palate, uvula, and tonsils normal Lymph nodes: No supraclavicular lymphadenopathy Lungs: Lungs clear to auscultation. No wheezing, rhonchi, rales. Heart: RRR without murmur, gallop, or rubs. No ectopy Ext: 1+ pitting edema bilateral lower legs, good distal pulses DATA REVIEWED: Most recent labs and EKG ASSESSMENT/PLAN: 1. Myalgias - ICD9: 729.1, ICD10: M79.10 (primary diagnosis) Possible medication side effect Check labs Hold Crestor for now Follow-up pending results - CK CREATINE KINASE 2. Chest tightness - ICD9: 786.59, ICD10: R07.89 Chest pain of unclear etiology, patient with significant risk factor(s) of Hypertension, Hyperlipidemia, and history of CAD - ECG COMPLETE today showing no changes from previous. No ischemic changes - check NT PRO BNP - notify Dr. Gaming's office of symptoms - follow-up as above 3. Bilateral lower extremity edema - ICD9: 782.3, ICD10: R60.0 See #2 - NT PRO BNP 4. Muscle weakness - ICD9: 728.87, ICD10: M62.81 See #1 - CK CREATINE KINASE 5. Shortness of breath - ICD9: 786.05, ICD10: R06.02 See #2 - NT PRO BNP 6. Fatigue, unspecified type - ICD9: 780.79, ICD10: R53.83 See #1 and 2 - CBC - COMP METABOLIC PANEL 7. Coronary artery disease involving [place] heart without angina pectoris, unspecified vessel or lesion type - ICD9: 414.01, ICD10: I25.10 See #2 - NT PRO BNP Prescription instructions reviewed with patient as applicable. Potential red flag symptoms discussed with the patient. Reviewed appropriate action plan to take if red flag symptoms occur. Patient agreeable to treatment plan. Ping Ferrera APRN.CNP documented in this encounter [facility] 11-09-2022 History of Present illness Narrative This note was created using [employer]. Subjective Priscilla Ramos is a 67 year old female. HISTORY Priscilla Ramos is a 67 year old lady here for yearly exam and follow up appointment. Trying statin three time a week or every other day. No adverse effects but forgets sometimes. Slowly worked way up from half pill. Okay with trying daily. Left leg falling asleep (contributes to falling; numbness then weak--caused her to fall and broke wrist) first thing in AM when wakes up. Improves as gets moving. Can be during the day. Noted that [place] CNP, filed consult for spine center. No appointment yet. Noted CAD. Stable on current meds. PAST MEDICAL HISTORY Diagnosis Date Abnormal mammogram, unspecified 06/27/2006 Acquired hypothyroidism 07/04/2017 CAD (coronary artery disease) CAD (coronary artery disease) 07/25/2022 Calculus of gallbladder with chronic cholecystitis without obstruction 08/01/2015 Corns and callosities 01/24/2014 Diarrhea Dysphagia 05/27/2015 feeling like food sits in bottom of esophagus if eats heavier than usual meal Dysthymic disorder Depression (non-psychotic) Elevated antinuclear antibody (KELTON) level 08/25/2014 Essential hypertension HTN (hypertension) 07/25/2022 Internal hemorrhoids without mention of complication Left wrist sprain 07/2022 Myalgia and myositis, unspecified FIBROMYALGIA Obesity, unspecified Obesity Obstructive sleep apnea [facility] Osteoarthritis of multiple joints PAIN LEG (Right) 02/20/2005 Temporomandibular joint disorders, unspecified 11/23/2006 Current Outpatient Medications Medication Sig acetaminophen (TYLENOL EXTRA STRENGTH) 500 mg tablet Take 1,000 mg by mouth every 8 hours as needed for pain. [START ON 11/29/2022] gabapentin (NEURONTIN) 400 mg capsule Take 2 capsule 60-90 minutes before bedtime. Do not start before November 29, 2022. colestipol (COLESTID) 1 gram tablet Take 1-2 tablets by mouth once daily. As directed rosuvastatin (CRESTOR) 5 mg tablet Take 1 tablet by mouth daily at bedtime. As directed diclofenac (VOLTAREN ARTHRITIS PAIN) 1 % topical gel Apply 2 g to affected area four times daily as needed (wrist pain). BIPAP amLODIPine (NORVASC) 10 mg tablet Take 10 mg by mouth once daily. losartan (COZAAR) 100 mg tablet Take 100 mg by mouth once daily. aspirin 81 mg chewable tablet Take 81 mg by mouth once daily. ZINC ORAL Take by mouth. levothyroxine (SYNTHROID) 25 mcg tablet Take 1 tablet by mouth once daily. ubidecarenone Q-10 (COENZYME Q-10) 10 mg cap Take 50 mg by mouth once daily. OTC NUTRITIONAL SUPPLEMENT Take 2 capsules by mouth twice daily. Fibro Care Cazwi-1-DTK-EPA-Fish Oil 300-1,000 mg cap Take 1,000 mg by mouth twice daily. hyperimmune colostrum, bovine 200 mg tab Take 2 tablets by mouth twice daily. Ca/D3/mag ox/zinc/commercial helicopter pilot/jose/bor (CALCIUM 600-D3 PLUS, MAG-ZINC, ORAL) turmeric/turmeric ext/pepr ext (TURMERIC-TURMERIC EXT-PEPPER) 900-100-5 mg cap CPAP Bipap 17/13 cm H2O, Heat Humidity, suitable mask, [employer] supplies, opt Chinstrap, G47.33. cholecalciferol (VITAMIN D3) 2,000 unit tablet Take 2,000 Units by mouth once daily. FLUoxetine HCl (PROZAC) 40 mg capsule Take 1 capsule by mouth once daily. (Dr. Garcia) CYANOCOBALAMIN, VITAMIN B-12, (VITAMIN B-12 ORAL) Take by mouth. buPROPion XL (WELLBUTRIN XL) 150 mg 24 hr tablet Take one(1) tablet daily. Biotin (NAIL-EX) 2,500 mcg ORAL Tab Take one(1) tablet daily. DAILY VITAMIN TAB Take one(1) tablet daily. [id number]/sod sulf,bicarb,Cl/KCl (GOLYTELY ORAL) Take by mouth. (Patient not taking: Reported on 09/10/2022) acetaminophen (TYLENOL 8 HOUR ORAL) Take by mouth. (Patient not taking: Reported on 11/09/2022) traZODone (DESYREL) 50 mg tablet Take 1 tablet by mouth daily at bedtime. Current Facility-Administered Medications Medication Dose Route Frequency perflutren lipid microspheres 1.3 mL in NaCl (PF) 0.9% 10 mL injection (DEFINITY) INTRAVENOUS DIRECTED PRN sodium chloride 0.9 % (flush) 10 mL (BD POSIFLUSH) 10 mL INTRAVENOUS DIRECTED PRN ALLERGIES No Known Allergies FAMILY HISTORY Problem Relation Age of Onset Diabetes Mother late in life at 75 Stroke Mother x3 Cancer Father myeloma (from immunesuppressants) at age 80 of chf and perf. bowel other (ESRD) Father had sudden renal failure; had kidney transplant at 68yo Thyroid Brother Hypertension Son No Known Problems Son Anesthesia Problems No Family History Blood Clots No Family History Clotting Disorder No Family History Social History Tobacco Use Smoking status: Never Smokeless tobacco: Never Vaping Use Vaping Use: Never used Substance Use Topics Alcohol use: Yes Alcohol/week: 18.0 standard drinks of alcohol Types: 18 Glasses of wine per week Comment: wine with supper Drug use: No Review of Systems Objective BP 122/68 Pulse 89 Temp 36.8 C (98.2 F) Resp 18 Ht 165.5 cm (5' 5.16) Wt 113.9 kg (251 lb) SpO2 96% BMI 41.57 kg/m Physical Exam Component Latest Ref Rng & Units 02/03/2022 02/05/2022 09/21/2022 Protein, Total 6.3 - 8.0 g/dL 6.8 7.1 Albumin 3.9 - 4.9 g/dL 4.1 4.1 Calcium 8.5 - 10.2 mg/dL 9.6 9.7 Bilirubin, Total 0.2 - 1.3 mg/dL 0.4 0.4 Alkaline Phosphatase 34 - 123 U/L 80 95 AST 13 - 35 U/L 25 30 ALT 7 - 38 U/L 24 33 Glucose 74 - 99 mg/dL 98 97 BUN 7 - 21 mg/dL 14 17 Creatinine 0.58 - 0.96 mg/dL 0.70 0.68 Sodium 136 - 144 mmol/L 140 137 Potassium 3.7 - 5.1 mmol/L 4.4 4.7 Chloride 97 - 105 mmol/L 104 101 CO2 22 - 30 mmol/L 26 26 Anion Gap 9 - 18 mmol/L 10 10 eGFR >=60 mL/min/1.73m 94 95 WBC 3.70 - 11.00 k/uL 4.84 RBC 3.90 - 5.20 m/uL 4.55 Hemoglobin 11.5 - 15.5 g/dL 14.0 Hematocrit 36.0 - 46.0 % 43.8 MCV 80.0 - 100.0 fL 96.3 MCH 26.0 - 34.0 pg 30.8 MCHC 30.5 - 36.0 g/dL 32.0 RDW-CV 11.5 - 15.0 % 13.3 Platelet Count 150 - 400 k/uL 284 MPV 9.0 - 12.7 fL 10.1 Absolute nRBC <0.01 k/uL <0.01 Cholesterol, Total <200 mg/dL 188 Triglyceride <150 mg/dL 69 HDL Cholesterol >39 mg/dL 75 Non HDL Cholesterol <130 mg/dL 113 Fasting Time hrs 11 VLDL Cholesterol <30 mg/dL 14 TC:HDL Ratio <5.10 2.51 LDL Cholesterol <100 mg/dL 99 LDL:HDL Ratio <2.54 1.32 d Dimer <500 ng/mL FEU 420 D Dimer Age-related Cutoff ng/mL FEU 680 Magnesium 1.7 - 2.3 mg/dL 2.1 TSH 0.270 - 4.200 mIU/L 1.090 0.670 Free T4 0.9 - 1.7 ng/dL 1.3 1.3 Free T3 2.3 - 4.1 pg/mL 3.2 3.3 Vitamin D 25 Hydroxy 31.0 - 80.0 ng/mL 37.6 Insulin 3.0 - 25.0 mU/L 8.6 Assessment and Plan Encounter Diagnosis ICD-10-CM 1. Coronary artery disease involving [place] coronary artery of [place] heart without angina pectoris I25.10 LIPID PANEL BASIC 2. Dyslipidemia E78.5 LIPID PANEL BASIC 3. Class 3 severe obesity due to excess calories with body mass index (BMI) of 40.0 to 44.9 in adult, unspecified whether serious comorbidity present (HCC) E66.01 Z68.41 4. Depression, recurrent (HCC) F33.9 Stable on SSRI and Wellbutrin. 5. Intermittent claudication ([facility]) I73.9 Taking statin. Further evaluation and treatment as indicated. Stay as active as able 6. Left leg numbness R20.0 with weakness causing fall. Will see [facility] for consult.Symptoms concerning for neurogenic claudication 7. Acquired hypothyroidism E03.9 Above issues addressed with patient. Patient involved in shared decision making for management of medical issues. History and medications reviewed. Epic updated as needed Refills and/or prescriptions taken care of and meds adjusted as indicated after reviewed history, exam and labs. Health Maintenance reviewed. Updated record and/or ordered tests as recorded. Encouraged on efforts at healthy diet and regular exercise and adequate sleep. Needs to keep working on diet and exercise with lifestyle changes for effective weight loss as well as prevention of DM, and control of BP and lipids. Emilee Condon MD documented in this encounter [facility] 10-10-2022 History of Present illness Narrative HPI: To review, Priscilla Ramos is a 67 year old female (goes by [employer]) - With longstanding fibromyalgia for several years, diagnosed sometime in the mid-to-late '90s. - In '12, had a R TKA - Around , Dr. Byrd diagnosed with arthritis (unsure of a more specific diagnosis, unsure if osteo vs inflammatory). Had pain in the shoulders, neck and mid>low back at that time. Started on HCQ and tramadol. Unsure if either has helped with the pain which has progressed over time. Unsure if she was on oral steroids in past. - In , reported increased pain in the hands/fingers so advised to add MTX which she deferred. - In Nov, reported pain in the MCPs and PIPs. No pain in the wrists or DIPs. Eases with activity. Worse in morning. Advised to taper off tramadol - In Jan, reported 50% improvement in joint stiffness with HCQ - In September, reported concern about potential for easy sunburn and skin issues with HCQ. Was advised she could hold it for 2 weeks to see if any improvement in itchy scalp. - in 01/2022, reports that stopping HCQ helped with skin issues. No change in joint symptoms without HCQ - Bilateral shoulder/clavicle pain. Worst times of day are evening and morning. Eases as she moves it around. Has been worse since stopping HCQ - Takes tylenol 2 tabs bid, (doesn't know strength of tab). - Last plaquenil eye exam normal in September PAST MEDICAL HISTORY Diagnosis Date Abnormal mammogram, unspecified 06/27/2006 Acquired hypothyroidism 07/04/2017 CAD (coronary artery disease) CAD (coronary artery disease) 07/25/2022 Calculus of gallbladder with chronic cholecystitis without obstruction 08/01/2015 Corns and callosities 01/24/2014 Diarrhea Dysphagia 05/27/2015 feeling like food sits in bottom of esophagus if eats heavier than usual meal Dysthymic disorder Depression (non-psychotic) Elevated antinuclear antibody (KELTON) level 08/25/2014 Essential hypertension HTN (hypertension) 07/25/2022 Internal hemorrhoids without mention of complication Left wrist sprain 07/2022 Myalgia and myositis, unspecified FIBROMYALGIA Obesity, unspecified Obesity Obstructive sleep apnea [facility] Osteoarthritis of multiple joints PAIN LEG (Right) 02/20/2005 Temporomandibular joint disorders, unspecified 11/23/2006 PAST SURGICAL HISTORY Procedure Laterality Date ARTHRP KNE CONDYLE&PLATU MEDIAL&LAT COMPARTMENTS 09/2011 right DELIVERY ONLY , low cervical DELIVERY ONLY , low cervical COLONOSCOPY 08/01/2022 repeat in 5 years COLONOSCOPY FLX DX W/COLLJ SPEC WHEN PFRMD 07/29/2017 Colonoscopy COLONOSCOPY W/BIOPSY SINGLE/MULTIPLE 02/10/2007 LAPS SURG CHOLECYSTECTOMY W/CHOLANGIOGRAPHY 08/17/2015 LEFT HEART CATH,PERCUTANEOUS PAST SURGICAL HISTORY OF foot-left PAST SURGICAL HISTORY OF left foot - no hardware STEREOTACTIC CORE BIOPSY 07/04/2006 UOQ RIGHT AVANI W/WO REMOVAL TUBE OVARY 1999 Hysterectomy, AVANI ovaries remain ALLERGIES No Known Allergies INTERVAL HISTORY This Team Access Model visit is a virtual encounter. It required patient-provider interaction for the medical decision making as documented below. I have communicated my name and active licensure. The patient's identity and physical location were verified at the time of this visit. Either the patient or their legal insurance account representative has been informed of the risks and benefits of -- and alternatives to -- treatment through a remote evaluation and consents to proceed with the evaluation remotely. She fell in 07/2022. She was walking and fell from a standing height. She fractured the L wrist. She reports numbness to L lower extremity, which she states caused the fall. She denies any other fractures. She denies history of GERD She denies history of cancer or radiation therapy She denies history of parental hip fracture or OP She denies taking antiseizure medications, HRT, or terminologist steroids. Menarche: age 12 menopause: hysterectomy at 44, did not include ovaries No history of kidney stones She denies any invasive dental work in the last 3 months and does not have any planned. Last dental exam 3 months ago. She is taking vit d and calcium. Pain is worst in the morning and at night. She takes tylenol for pain. Sites of pain: fingers, wrists, hips, low back, pain rated 4/10 Joint swelling: none EMS: yes, lasting 2 hours No recent infections. Tolerating meds. Answers submitted by the patient for this visit: Review of Systems Rheumatology (Submitted on 10/07/2022) Fever : No Recent Unintentional Weight Change: No Eye Pain: No Eye Redness: No Vision Disturbance: No Eye Dryness: No Nose Bleeds: No Sores in your Mouth: No Trouble Swallowing: No Dry Mouth: No Chest Pain: No Leg Swelling: Yes A Cough: No Shortness of Breath: No Pain with Breathing: No Heartburn: No Abdominal Pain: No Diarrhea: No Black Tarry Stools: No Blood in Urine: No Pain or Burning with Urination: No Joint Pain or Stiffness: Yes Muscle Weakness: Yes Muscle Aches: Yes Joint Swelling: No Morning Stiffness in Joints: Yes A Rash: No Skin Color Changes: No Hair Loss: No Nail Changes: No Headaches: No Numbness: Yes Memory Loss: No Swollen Glands: No Current Outpatient Medications Medication Sig [START ON 11/29/2022] gabapentin (NEURONTIN) 400 mg capsule Take 2 capsule 60-90 minutes before bedtime. Do not start before November 29, 2022. colestipol (COLESTID) 1 gram tablet Take 1-2 tablets by mouth once daily. As directed rosuvastatin (CRESTOR) 5 mg tablet Take 1 tablet by mouth daily at bedtime. As directed diclofenac (VOLTAREN ARTHRITIS PAIN) 1 % topical gel Apply 2 g to affected area four times daily as needed (wrist pain). [id number]/sod sulf,bicarb,Cl/KCl (GOLYTELY ORAL) Take by mouth. (Patient not taking: Reported on 09/10/2022) acetaminophen (TYLENOL 8 HOUR ORAL) Take by mouth. BIPAP amLODIPine (NORVASC) 10 mg tablet Take 10 mg by mouth once daily. losartan (COZAAR) 100 mg tablet Take 100 mg by mouth once daily. aspirin 81 mg chewable tablet Take 81 mg by mouth once daily. ZINC ORAL Take by mouth. levothyroxine (SYNTHROID) 25 mcg tablet Take 1 tablet by mouth once daily. ubidecarenone Q-10 (COENZYME Q-10) 10 mg cap Take 50 mg by mouth once daily. OTC NUTRITIONAL SUPPLEMENT Take 2 capsules by mouth twice daily. Fibro Care Twljf-4-XQK-EPA-Fish Oil 300-1,000 mg cap Take 1,000 mg by mouth twice daily. hyperimmune colostrum, bovine 200 mg tab Take 2 tablets by mouth twice daily. Ca/D3/mag ox/zinc/commercial helicopter pilot/jose/bor (CALCIUM 600-D3 PLUS, MAG-ZINC, ORAL) turmeric/turmeric ext/pepr ext (TURMERIC-TURMERIC EXT-PEPPER) 900-100-5 mg cap CPAP Bipap 17/13 cm H2O, Heat Humidity, suitable mask, [employer] supplies, opt Chinstrap, G47.33. cholecalciferol (VITAMIN D3) 2,000 unit tablet Take 2,000 Units by mouth once daily. FLUoxetine HCl (PROZAC) 40 mg capsule Take 1 capsule by mouth once daily. (Dr. Garcia) traZODone (DESYREL) 50 mg tablet Take 1 tablet by mouth daily at bedtime. CYANOCOBALAMIN, VITAMIN B-12, (VITAMIN B-12 ORAL) Take by mouth. buPROPion XL (WELLBUTRIN XL) 150 mg 24 hr tablet Take one(1) tablet daily. Biotin (NAIL-EX) 2,500 mcg ORAL Tab Take one(1) tablet daily. DAILY VITAMIN TAB Take one(1) tablet daily. Current Facility-Administered Medications Medication Dose Route Frequency perflutren lipid microspheres 1.3 mL in NaCl (PF) 0.9% 10 mL injection (DEFINITY) INTRAVENOUS DIRECTED PRN sodium chloride 0.9 % (flush) 10 mL (BD POSIFLUSH) 10 mL INTRAVENOUS DIRECTED PRN FAMILY HISTORY Problem Relation Age of Onset Diabetes Mother late in life at 75 Stroke Mother x3 Cancer Father myeloma (from immunesuppressants) at age 80 of chf and perf. bowel other (ESRD) Father had sudden renal failure; had kidney transplant at 68yo Thyroid Brother Hypertension Son No Known Problems Son Anesthesia Problems No Family History Blood Clots No Family History Clotting Disorder No Family History SOCIAL HISTORY: Lives in [place]. 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 2 sons. 3 grandchildren Tobacco use: None Alcohol use: 2-3 glasses of wine/day Drug use: None PHYSICAL EXAM: CONSTITUTIONAL: Well-appearing, in NAD. SKIN: No rash. No alopecia. EYES: No scleral icterus or conjunctivitis NEURO: Awake, alert and oriented *Nov Widespread Pain Index: 15 (0-19) Symptoms Severity Scale: 7 (0-12) WPI>7 and SS Scale>5 OR WPI 3-6 and SS Scale >9 consistent with fibromyalgia Labs reviewed and discussed with the patient: Component Latest Ref Rng & Units 09/21/2022 Protein, Total 6.3 - 8.0 g/dL 7.1 Albumin 3.9 - 4.9 g/dL 4.1 Calcium 8.5 - 10.2 mg/dL 9.7 Bilirubin, Total 0.2 - 1.3 mg/dL 0.4 Alkaline Phosphatase 34 - 123 U/L 95 AST 13 - 35 U/L 30 ALT 7 - 38 U/L 33 Glucose 74 - 99 mg/dL 97 BUN 7 - 21 mg/dL 17 Creatinine 0.58 - 0.96 mg/dL 0.68 Sodium 136 - 144 mmol/L 137 Potassium 3.7 - 5.1 mmol/L 4.7 Chloride 97 - 105 mmol/L 101 CO2 22 - 30 mmol/L 26 Anion Gap 9 - 18 mmol/L 10 eGFR >=60 mL/min/1.73m 95 Component Latest Ref Rng & Units 09/21/2022 Vitamin D 25 Hydroxy 31.0 - 80.0 ng/mL 37.6 Component Latest Ref Rng & Units 02/03/2022 Protein, Total 6.3 - 8.0 g/dL 6.8 Albumin 3.9 - 4.9 g/dL 4.1 Calcium 8.5 - 10.2 mg/dL 9.6 Bilirubin, Total 0.2 - 1.3 mg/dL 0.4 Alkaline Phosphatase 34 - 123 U/L 80 AST 13 - 35 U/L 25 ALT 7 - 38 U/L 24 Glucose 74 - 99 mg/dL 98 BUN 7 - 21 mg/dL 14 Creatinine 0.58 - 0.96 mg/dL 0.70 Sodium 136 - 144 mmol/L 140 Potassium 3.7 - 5.1 mmol/L 4.4 Chloride 97 - 105 mmol/L 104 CO2 22 - 30 mmol/L 26 Anion Gap 9 - 18 mmol/L 10 eGFR >=60 mL/min/1.73m 94 WBC 3.70 - 11.00 k/uL 4.84 RBC 3.90 - 5.20 m/uL 4.55 Hemoglobin 11.5 - 15.5 g/dL 14.0 Hematocrit 36.0 - 46.0 % 43.8 MCV 80.0 - 100.0 fL 96.3 MCH 26.0 - 34.0 pg 30.8 MCHC 30.5 - 36.0 g/dL 32.0 RDW-CV 11.5 - 15.0 % 13.3 Platelet Count 150 - 400 k/uL 284 MPV 9.0 - 12.7 fL 10.1 Absolute nRBC <0.01 k/uL <0.01 Magnesium 1.7 - 2.3 mg/dL 2.1 Component Latest Ref Rng & Units 08/21/2014 KELTON Negative Positive (A) KELTON Titer Negative 1:80 (A) KELTON Pattern Speckled STUDIES: *Nov MRI L-spine- Advanced lumbar spondylosis with multiple levels of severe spinal canal stenosis at L2-L3, L3-L4 and L4-L5. Up to severe foraminal stenosis on the right at L4-L5. IMPRESSION and PLAN: 1. Prior diagnosis of inflammatory arthritis: Pain in the wrists, MCPs, and PIPs per exam which could be due to inflammatory arthritis. HCQ ineffective, caused skin issues and no change since stopping in September aside from increased shoulder pain. Overall stable. - Continue monitoring off HCQ 2. Generalized osteoarthritis: Hands, spine, knee s/p R TKA in . Tapered off tramadol. - advised taking tylenol up to 3000mg/day as needed for pain - continue HEP for shoulder pain - Consider alternative therapies such as lyrica if needed (can't try savella given she is currently on prozac) - Avoid NSAIDs PO given elevated July Cr level 3. Spinal stenosis/lumbar spondylosis: Per MRI - Given referrals to spine clinic and PT in the past. New consult placed for spine today. 4. Fibromyalgia: Meets criteria based on WPI/SS scale score as above. - Explained diagnosis and provided literature on fibromyalgia for review - Advised aerobic exercise - Please refer to the fibromyalgia treatment guidelines as detailed in the Nov note for further management by PCP 5. Clinical osteoporosis: With history of fragility fracture in 07/2022. No prior treatment. 02/2022 DEXA: lowest T-score -1.5. - diagnosis discussed. Will send info on OP via my chart. - I advised starting alendronate (fosamax). Potential side effects of alendronate discussed including GI upset, atypical femur fracture (this is rare), and jaw osteonecrosis (also rare). To reduce the risk for jaw osteonecrosis, I advised that the medication not be started if planning to have any upcoming dental procedures, until 3 months after the procedure, as the risk for jaw osteonecrosis can increase with invasive procedures such as tooth extractions. You should take the medication with a full glass of water and not lay down for 30 minutes after taking it in order to avoid problems with the esophagus that can happen if the pill gets stuck. Will send information on medication via my chart. Also briefly discussed reclast. -patient declines starting OP treatment at this time. I explained that she is at increased risk for fractures and further bone loss. I asked that she contact me if she changes her mind. -continue vit d -fall precautions -weight bearing exercise as tolerated -advised that she contact our office if she has any interim fractures -next DEXA due 02/2024 6. General health maintenance: - Completed the covid vaccination series in July - Advised to continue follow-up with PCP for routine health maintenance and malignancy screening Follow-up in 4 months, or sooner if needed. Patient was instructed to call if any new or worsening symptoms. Thank you for allowing me to participate in the care of your patient. 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 08-29-2022 History of Present illness Narrative Subjective: Patient is status post a colonoscopy completed on 08/01/2022. She was noted to have a polyp in her transverse colon which came back as a tubular adenoma. She is tolerating a diet not having any difficulty with abdominal pain. Objective:Blood pressure 132/80, pulse 70, temperature 36.2 C (97.1 F), SpO2 99 %. Abdomen is soft and nontender Assessment: Tubular adenoma of transverse colon Plan: Patient will need to have another colonoscopy in 5 years documented in this encounter [facility] 08-29-2022 Miscellaneous Notes PDMP website checked and validated. All prescriptions have been APPROPRIATELY filled. No suspicious activity was identified. 08/29/2022 by Sahara Boateng MD Pt last filled medication on May 30 for 90 days, last day would have been August 27. Faye Toth LPN TEX 03/02/23 with [facility] NOV 09/10/22 with [facility] Refill 05/25/22 with qty: 180 and 0 refills Faye Toth LPN TEX Assessment/Plan Assessment and Plan: ASSESSMENT/PLAN: 1. NELI on CPAP - ICD9: 327.23, V46.8, ICD10: G47.33, Z99.89 (primary diagnosis) Patient subjectively and objectively doing well from standpoint of PAP therapy. No changes at this time. Encouraged continued compliance. Reminded to clean and replace equipment regularly. Advised pt not to drive or operate heavy machinery if sleepy. 2. RLS (restless legs syndrome) - ICD9: 333.94, ICD10: G25.81 3. Fibromyalgia - ICD9: 729.1, ICD10: M79.7 Stable during the night on gabapentin 800mg 90 minutes before bed. Pain in AM, but pt not wanting to adjust meds at this time. Note pt continues to take Trazodone, but encouraged her to try to stop and see what happens as can always be restarted. Appears her psychiatrist encouraged this as well per history provided by pt. Rx provided. Follow up 6 months. Sahara Boateng MD documented in this encounter [facility] 08-06-2022 Instructions Emilee Condon MD - 08/06/2022 5:58 PM EDT May start rosuvastatin at half or whole pill Saturday, Saturday and Saturday to make sure tolerate well and see if dose is adequate to get LDL under 70. documented in this encounter [facility] 08-06-2022 History of Present illness Narrative VIRTUAL VISIT PROGRESS NOTE This is a virtual visit using [employer] video visit. It required patient-provider interaction for the medical decision making as documented below. I have communicated my name and active licensure. The patient's identity and physical location were verified at the time of this visit. Either the patient or their legal insurance account representative has been informed of the risks and benefits of -- and alternatives to -- treatment through a remote evaluation and consents to proceed with the evaluation remotely. Priscilla Ramos is a 67 year old female seen for ER follow up and . Tried colestipol daily for 5 days. Seems to be causing diarrhea. Had not needed to take very often. Working on healthy diet July 23 left wrist sprain; Xray negative for fracture. Still hurting despite the splint. Ortho appointment in August. Decreased ROM. Noted tubular adenoma. HISTORY REVIEWED (electronic chart updated): PAST MEDICAL HISTORY Diagnosis Date Abnormal mammogram, unspecified 06/27/2006 Acquired hypothyroidism 07/04/2017 CAD (coronary artery disease) CAD (coronary artery disease) 07/25/2022 Calculus of gallbladder with chronic cholecystitis without obstruction 08/01/2015 Corns and callosities 01/24/2014 Diarrhea Dysphagia 05/27/2015 feeling like food sits in bottom of esophagus if eats heavier than usual meal Dysthymic disorder Depression (non-psychotic) Elevated antinuclear antibody (KELTON) level 08/25/2014 Essential hypertension HTN (hypertension) 07/25/2022 Internal hemorrhoids without mention of complication Left wrist sprain 07/2022 Myalgia and myositis, unspecified FIBROMYALGIA Obesity, unspecified Obesity Obstructive sleep apnea DME [place] Osteoarthritis of multiple joints PAIN LEG (Right) 02/20/2005 Temporomandibular joint disorders, unspecified 11/23/2006 PAST SURGICAL HISTORY Procedure Laterality Date ARTHRP KNE CONDYLE&PLATU MEDIAL&LAT COMPARTMENTS 09/2011 right DELIVERY ONLY , low cervical DELIVERY ONLY , low cervical COLONOSCOPY FLX DX W/COLLJ SPEC WHEN PFRMD 07/29/2017 Colonoscopy COLONOSCOPY W/BIOPSY SINGLE/MULTIPLE 02/10/2007 LAPS SURG CHOLECYSTECTOMY W/CHOLANGIOGRAPHY 08/17/2015 LEFT HEART CATH,PERCUTANEOUS PAST SURGICAL HISTORY OF foot-left PAST SURGICAL HISTORY OF left foot - no hardware STEREOTACTIC CORE BIOPSY 07/04/2006 UOQ RIGHT AVANI W/WO REMOVAL TUBE OVARY 1999 Hysterectomy, AVANI ovaries remain FAMILY HISTORY Problem Relation Age of Onset Diabetes Mother late in life at 75 Stroke Mother x3 Cancer Father myeloma (from immunesuppressants) at age 80 of chf and perf. bowel other (ESRD) Father had sudden renal failure; had kidney transplant at 68yo Thyroid Brother Hypertension Son No Known Problems Son Anesthesia Problems No Family History Blood Clots No Family History Clotting Disorder No Family History Social History Tobacco Use Smoking status: Never Smokeless tobacco: Never Vaping Use Vaping Use: Never used Substance Use Topics Alcohol use: Yes Alcohol/week: 18.0 standard drinks Types: 18 Glasses of wine per week Comment: wine with supper Drug use: No Current Outpatient Medications Medication Sig [id number] sulf,bicarb,Cl/KCl (GOLYTELY ORAL) Take by mouth. acetaminophen (TYLENOL 8 HOUR ORAL) Take by mouth. BIPAP amLODIPine (NORVASC) 10 mg tablet Take 10 mg by mouth once daily. losartan (COZAAR) 100 mg tablet Take 100 mg by mouth once daily. aspirin 81 mg chewable tablet Take 81 mg by mouth once daily. ZINC ORAL Take by mouth. levothyroxine (SYNTHROID) 25 mcg tablet Take 1 tablet by mouth once daily. gabapentin (NEURONTIN) 400 mg capsule Take 2 capsule 60-90 minutes before bedtime. ubidecarenone Q-10 (COENZYME Q-10) 10 mg cap Take 50 mg by mouth once daily. CPAP Increase PAP setting to 17/13 cmH2O. OTC NUTRITIONAL SUPPLEMENT Take 2 capsules by mouth twice daily. Fibro Care Nxngf-8-KDK-EPA-Fish Oil 300-1,000 mg cap Take 1,000 mg by mouth twice daily. hyperimmune colostrum, bovine 200 mg tab Take 2 tablets by mouth twice daily. colestipol (COLESTID) 1 gram tablet Take 1-2 tablets by mouth once daily. As directed Ca/D3/mag ox/zinc/commercial helicopter pilot/jose/bor (CALCIUM 600-D3 PLUS, MAG-ZINC, ORAL) turmeric/turmeric ext/pepr ext (TURMERIC-TURMERIC EXT-PEPPER) 900-100-5 mg cap CPAP Bipap 17/13 cm H2O, Heat Humidity, suitable mask, Lif[employer] supplies, opt Chinstrap, G47.33. cholecalciferol (VITAMIN D3) 2,000 unit tablet Take 2,000 Units by mouth once daily. FLUoxetine HCl (PROZAC) 40 mg capsule Take 1 capsule by mouth once daily. (Dr. Garcia) traZODone (DESYREL) 50 mg tablet Take 1 tablet by mouth daily at bedtime. CYANOCOBALAMIN, VITAMIN B-12, (VITAMIN B-12 ORAL) Take by mouth. buPROPion XL (WELLBUTRIN XL) 150 mg 24 hr tablet Take one(1) tablet daily. Biotin (NAIL-EX) 2,500 mcg ORAL Tab Take one(1) tablet daily. DAILY VITAMIN TAB Take one(1) tablet daily. Current Facility-Administered Medications Medication Dose Route Frequency perflutren lipid microspheres 1.3 mL in NaCl (PF) 0.9% 10 mL injection (DEFINITY) INTRAVENOUS DIRECTED PRN sodium chloride 0.9 % (flush) 10 mL (BD POSIFLUSH) 10 mL INTRAVENOUS DIRECTED PRN ALLERGIES No Known Allergies REVIEW OF SYSTEMS: As noted in HPI PHYSICAL EXAMINATION: VIDEO EXAM: (if completed, performed via video enabled technology) GENERAL: alert and appropriate, in no distress, well-hydrated, well nourished, and happy, smiling, interactive HEAD: normocephalic, no abnormality or lesion noted EYES: no injection and visual acuity is grossly normal RESPIRATORY: breathing non-labored Encounter Diagnosis ICD-10-CM 1. Sprain of left wrist, subsequent encounter S63.502D 2. Coronary artery disease involving [place] coronary artery of [place] heart without angina pectoris I25.10 LIPID PANEL BASIC 3. 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 Loose stools R19.5 colestipol (COLESTID) 1 gram tablet 5. Acquired hypothyroidism E03.9 TSH BLD T4 FREE/FREE THYROX T3 FREE BLD 6. Vitamin D deficiency E55.9 CANCELED: VITAMIN D 25 HYDROXY 7. Encounter for long-term current use of medication Z79.899 LIPID PANEL BASIC COMP METABOLIC PANEL 8. Class 3 severe obesity due to excess calories with body mass index (BMI) of 40.0 to 44.9 in adult, unspecified whether serious comorbidity present (HCC) E66.01 Z68.41 Above issues addressed with patient. Patient involved in shared decision making for management of medical issues. History and medications reviewed. Epic updated as needed Refills and/or prescriptions taken care of and meds adjusted as indicated after reviewed history, exam and labs. Health Maintenance reviewed. Updated record and/or ordered tests as recorded. Encouraged on efforts at healthy diet and regular exercise and adequate sleep. Needs to keep working on diet and exercise with lifestyle changes for effective weight loss as well as control of DM, and control of BP and lipids. There are no Patient Instructions on file for this visit. I spent a total of 44 minutes on the date of the service which included [id number] patient care, completing clinical documentation, performing a medically appropriate examination, counseling and educating the patient/family/caregiver, and ordering medications, tests, or procedures Emilee Condon MD documented in this encounter [facility] 08-01-2022 History and physical note Images from the original note were not included. HISTORY AND PHYSICAL Priscilla Ramos 1955 REFERRING PHYSICIAN: Emilee Condon MD CHIEF COMPLAINT: Consult (Colonoscopy consult) HPI: The patient is a 67 year old female referred for endoscopy. Priscilla notes no colon complaints. Patient denies any change in bowel habits, weight changes, blood in stools, black tarry stools or abdominal pain. Denies family history of colon issues. The patient notes no upper GI complaints. Priscilla has undergone prior endoscopy. Last colonoscopy 07/29/17 Dr. Morris with removal of adenomatous polyp, 5 year repeat recommended. Patient had recent cardiac catheterization d/t abnormal stress test. No blockages, no interventions performed. She has upcoming follow-up with Dr. Gaming. PAST MEDICAL HISTORY PAST MEDICAL HISTORY Diagnosis Date Abnormal mammogram, unspecified 06/27/2006 Acquired hypothyroidism 07/04/2017 CAD (coronary artery disease) Calculus of gallbladder with chronic cholecystitis without obstruction 08/01/2015 Corns and callosities 01/24/2014 Diarrhea Dysphagia 05/27/2015 feeling like food sits in bottom of esophagus if eats heavier than usual meal Dysthymic disorder Depression (non-psychotic) Elevated antinuclear antibody (KELTON) level 08/25/2014 Essential hypertension Internal hemorrhoids without mention of complication Myalgia and myositis, unspecified FIBROMYALGIA Obesity, unspecified Obesity Obstructive sleep apnea DME [facility] [place] Osteoarthritis of multiple joints PAIN LEG (Right) 02/20/2005 Temporomandibular joint disorders, unspecified 11/23/2006 PAST SURGICAL HISTORY PAST SURGICAL HISTORY Procedure Laterality Date ARTHRP KNE CONDYLE&PLATU MEDIAL&LAT COMPARTMENTS 09/2011 right DELIVERY ONLY , low cervical DELIVERY ONLY , low cervical COLONOSCOPY FLX DX W/COLLJ SPEC WHEN PFRMD 07/29/2017 Colonoscopy COLONOSCOPY W/BIOPSY SINGLE/MULTIPLE 02/10/2007 LAPS SURG CHOLECYSTECTOMY W/CHOLANGIOGRAPHY 08/17/2015 LEFT HEART CATH,PERCUTANEOUS PAST SURGICAL HISTORY OF foot-left STEREOTACTIC CORE BIOPSY 07/04/2006 UOQ RIGHT AVANI W/WO REMOVAL TUBE OVARY 1999 Hysterectomy, AVANI ovaries remain CURRENT MEDICATIONS Current Outpatient Medications Medication Sig levothyroxine (SYNTHROID) 25 mcg tablet Take 1 tablet by mouth once daily. gabapentin (NEURONTIN) 400 mg capsule Take 2 capsule 60-90 minutes before bedtime. ubidecarenone Q-10 (COENZYME Q-10) 10 mg cap Take 50 mg by mouth once daily. CPAP Increase PAP setting to 17/13 cmH2O. OTC NUTRITIONAL SUPPLEMENT Take 2 capsules by mouth twice daily. Fibro Care Sykcb-5-YPM-EPA-Fish Oil 300-1,000 mg cap Take 1,000 mg by mouth twice daily. hyperimmune colostrum, bovine 200 mg tab Take 2 tablets by mouth twice daily. colestipol (COLESTID) 1 gram tablet Take 1-2 tablets by mouth once daily. As directed Ca/D3/mag ox/zinc/commercial helicopter pilot/jose/bor (CALCIUM 600-D3 PLUS, MAG-ZINC, ORAL) turmeric/turmeric ext/pepr ext (TURMERIC-TURMERIC EXT-PEPPER) 900-100-5 mg cap CPAP Bipap 17/13 cm H2O, Heat Humidity, suitable mask, [employer] supplies, opt Chinstrap, G47.33. cholecalciferol (VITAMIN D3) 2,000 unit tablet Take 2,000 Units by mouth once daily. FLUoxetine HCl (PROZAC) 40 mg capsule Take 1 capsule by mouth once daily. (Dr. Garcia) traZODone (DESYREL) 50 mg tablet Take 1 tablet by mouth daily at bedtime. CYANOCOBALAMIN, VITAMIN B-12, (VITAMIN B-12 ORAL) Take by mouth. buPROPion XL (WELLBUTRIN XL) 150 mg 24 hr tablet Take one(1) tablet daily. Biotin (NAIL-EX) 2,500 mcg ORAL Tab Take one(1) tablet daily. DAILY VITAMIN TAB Take one(1) tablet daily. Current Facility-Administered Medications Medication Dose Route Frequency perflutren lipid microspheres 1.3 mL in NaCl (PF) 0.9% 10 mL injection (DEFINITY) INTRAVENOUS DIRECTED PRN sodium chloride 0.9 % (flush) 10 mL (BD POSIFLUSH) 10 mL INTRAVENOUS DIRECTED PRN ALLERGIES: Patient has no known allergies. PERSONAL HISTORY: SOCIAL HISTORY Social History Tobacco Use Smoking status: Never Smokeless tobacco: Never Vaping Use Vaping Use: Never used Substance Use Topics Alcohol use: Yes Alcohol/week: 18.0 standard drinks Types: 18 Glasses of wine per week Comment: wine with supper Drug use: No FAMILY HISTORY: FAMILY HISTORY FAMILY HISTORY Problem Relation Age of Onset Diabetes Mother late in life at 75 Stroke Mother x3 Cancer Father myeloma (from immunesuppressants) at age 80 of chf and perf. bowel other (ESRD) Father had sudden renal failure; had kidney transplant at 68yo Thyroid Brother Hypertension Son No Known Problems Son REVIEW OF SYMPTOMS: The review of systems data was entered by the nurse and reviewed by or Nursing Notes: Angella Hernandez LPN 06/26/2022 11:16 AM Signed REVIEW OF SYSTEMS: General: The patient NOTES fatigue, denies weight loss, denies weight gain, denies feeling hot, and denies feelings of cold. Eyes: The patient denies glaucoma, denies eye injury/surgery, wears glasses or contacts. Ear/Nose/Throat: The patient denies allergies, denies hayfever, denies ear infections, and denies bloody noses. Cardiovascular: The patient denies chest pain, NOTES heart disease, NOTES high blood pressure,denies cardiac stent, denies prior heart attack, denies irregular heart beat, denies high cholesterol, denies poor circulation, denies heart failure, other cardiac issues, denies claudication, denies cold feet, denies peripheral arterial stent. Respiratory: The patient denies tuberculosis, denies pneumonia, denies frequent cough, denies pulmonary embolism, denies shortness of breath, and denies coughing up blood. Gastrointestinal: The patient denies difficulty swallowing, denies acid reflux, denies ulcers, denies vomiting, denies jaundice/hepatitis, denies gallbladder problems, denies black or tarry stools, denies hemorrhoids, denies bleeding from rectum, denies diverticulitis, denies constipation, denies diarrhea, denies loss of stool control, and denies hernias. Kidney/Bladder: The patient denies kidney stones, denies urine infections, and denies bloody urine. Skin: The patient denies a history of skin cancer, denies bleeding/changing moles, and denies a history of skin rash. Neurologic: The patient denies a history of epilepsy/convulsions, denies headaches, denies head/spinal injuries, and denies stroke/TIA. Psychiatric: The patient denies psychiatric medications, NOTES depression, and denies voices, denies substance abuse. Endocrine: The patient NOTES thyroid disorders, denies diabetes, and denies hormonal problems. Hematologic: The patient denies a history of bruising, denies bleeding, and denies anemia, denies blood clots. Infections: The patient denies a history of measles and mumps, denies rheumatic fever, and denies sexually transmitted diseases. Musculoskeletal: The patient NOTES back pain/injury, denies back problems, denies sciatica, denies knee/foot trouble, NOTES arthritis, or denies gout. When was patient's last Mammogram screening? N/A Last Colonoscopy: N/A Angella Hernandez LPN I have confirmed and edited as necessary, the PFSH and ROS obtained by others. Iman Kumari PA-C PHYSICAL EXAMINATION: General: The patient is 67 year old female, well nourished, well hydrated in no acute distress. The patient is oriented to time, place, and person. VITALS: Blood pressure 128/72, pulse 89, temperature 36.4 C (97.6 F), height 165.1 cm (5' 5), weight 116 kg (255 lb 12.8 oz), SpO2 96 %. There is no height or weight on file to calculate BMI. HEENT: Normal cephalic, ataumatic, pupils are equally round, sclera are anicteric, mucous membranes are moist, oropharynx is clear. Neck has no masses, asymmetry or lymphadenopathy. Respiratory: Clear to auscultation and percussion. Normal respiratory excursion and pattern. Cardiac: Examination is regular rate and rhythm. Normal S1/S2 Abdominal exam: Soft, nontender, with no palpable masses. No hepatosplenomegaly. No palpable hernias. Extremities: no clubbing, cyanosis or edema. No adenopathy. LABORATORY VALUES: As Noted RADIOLOGIC STUDIES: As Noted Assessment IMPRESSION: encounter for high-risk screening colonoscopy, history of colon polyp PLAN: I have reviewed my findings with the surgeon. Will plan for lower endoscopy. We discussed the risks and benefits of the planned endoscopy. I have informed the patient that complications can occur including failure to complete the endoscopy and perforation. The patient had the opportunity to ask questions concerning the planned endoscopy. My staff has also explained the procedure to the patient in understandable terms and has given the patient printed material concerning the procedure. The patient freely consents to surgery. The patient was offered a surgery/procedure at a [facility] facility. I have counseled the patient regarding the risk of exposure to and/or potential harm posed by the COVID-19 virus with having a surgery/procedure at this time versus the risk of delaying the surgery/procedure. It is not possible to know either the risk of delaying the surgery or procedure or chance of getting an infection with perfect accuracy, but a joint decision was made between the patient and myself to proceed at this time with endoscopy. I plan to use Golytely bowel preparation The patient takes prescription medications which I feel decrease the chance of successful sedation, therefore we will plan for procedure to be done under Monitored Anesthetic Care. cardiac clearance requested. -Recent cardiac cath Diagnoses: (Z86.010) History of colonic polyps (primary encounter diagnosis) (Z12.11) Colon cancer screening Consultation requested by Dr. Condon for an opinion regarding screening colonoscopy. My final recommendations will be communicated back to the requesting physician by way of shared Medical record or letter to requesting physician via US mail. Iman Kumari PA-C UPDATED HISTORY AND PHYSICAL EXAMINATION SERVICE DATE: 08/01/2022 SERVICE TIME: 8:10 AM PHYSICAL EXAM MUST BE COMPLETED ON ADMISSION The History and Physical (completed in the past 30 days) has been reviewed and the patient has been examined. The contents accurately reflect the patient's condition with the following additions or revisions since the H&P was completed. Examination indicates no changes. This H&P can be found in the attached. SIGNATURE: Black Pitts III, MD PATIENT NAME: Priscilla Ramos DATE: August 01, 2022 TIME: 8:10 AM documented in this encounter [facility] 07-25-2022 Instructions Blossom Murray PA-C - 07/25/2022 1:22 PM EDT PATIENT PREOPERATIVE INSTRUCTIONS Black Pitts MD has scheduled you for your procedure at this surgery center: [facility]: [phone] -- [address] [address]. Arrival Time for Surgery: - The Surgery Center or hospital where you are having surgery will call the afternoon before surgery (or Saturday for Saturday surgery) with a scheduled arrival time. - If you have not heard by 4 pm, please contact the surgery center above. Please be aware that emergency situations arise, which may delay or change your surgical time. If this happens, we will notify you as soon as possible and regret any inconvenience. Please read below carefully for your personalized instructions. Dietary Restrictions: - Follow bowel prep instructions: clear liquids need to be stopped 2 hours prior to schedule arrival at facility Medications: Unless instructed differently below, stay on all of your medications until your surgery. Approved medications to take the morning of surgery with a sip of water: AMLODIPINE, LEVOTHYROXINE, GABAPENTIN, FLUOXETINE and WELLBUTRIN DO NOT TAKE YOUR LOSARTAN THE NIGHT BEFORE OR MORNING OF SURGERY. - Please continue your current pain medications. If you start any new medications after today's visit, please contact the surgeon's office. Blood Thinning Medications: - Stop NSAIDS (Ibuprofen, Advil, Aleve, Motrin, Celebrex, Mobic, etc.) 7 days before surgery, as directed by your surgeon. - Stop Aspirin 7 days before surgery, as directed by your surgeon. - Stop Vitamin E, ALL multi-vitamins, herbals and dietary supplements 14 days before surgery. - You may take Tylenol (Acetaminophen) or any of your pain medications that do not contain aspirin or NSAIDS as needed. Important Reminders: - If you use CPAP/BIPAP, bring the machine with you to the surgery center. - Candy, mints, and tobacco products are NOT permitted the morning of surgery. - Hearing aids, dentures and glasses may be worn the morning of surgery. - NO jewelry, body piercings, makeup, hairpins or contacts are to be worn the day of surgery. If you develop symptoms such as a fever, cold, or flu, or have other changes to your health within TWO DAYS of scheduled surgery or the morning of surgery, please contact the surgery center above. Personal Belongings: -Please have photo ID and insurance cards. -If you do not have a copy of advance directives on file with us, please bring a copy with you on the day of surgery. - Leave ALL valuables and money at home or with family members. For Outpatient Procedures: - YOU MUST HAVE A RESPONSIBLE WRAPPER STEMMER HAND TAKE YOU HOME. A CONTROL DIRECTOR OR NAILER MACHINE CANNOT BE MADE A RESPONSIBLE WRAPPER STEMMER HAND. - We recommend that a responsible person stays with you overnight to take care of you. - You cannot stay in a hotel alone after outpatient surgery. You will not be permitted to have your surgery, if you do not have someone to take care of you. If you already have an Advance Directive, please fax a copy to [phone] or email to for it to be added to your chart. If you do not have an Advance Directive, you can find the appropriate form and more information at [email or web address]. We recommend that you complete the Advance Directive form found on the website and bring it with you the day of your surgery. It can be witnessed and scanned into your chart that day. Blossom Murray PA-C documented in this encounter [facility] 07-25-2022 History and physical note HISTORY AND PHYSICAL EXAMINATION SERVICE DATE: 07/25/2022 SERVICE TIME: 1:51 PM PRIMARY CARE PHYSICIAN: Emilee Condon MD This is a virtual visit using [employer] video visit. It required patient-provider interaction for the medical decision making as documented below. I have communicated my name and active licensure. The patient's identity and physical location were verified at the time of this visit. Either the patient or their legal insurance account representative has been informed of the risks and benefits of and alternatives to treatment through a remote evaluation and consents to proceed with the evaluation remotely. This is a virtual visit using MyChart video visit. It required patient-provider interaction for the medical decision making as documented below. REASON FOR VISIT: Priscilla Ramos is a 67 year old female who is scheduled for * No surgery found * at the request of Dr. Black Pitts for consultation. My final recommendation will be communicated back to the requesting physician by way of shared medical record or letter. Subjective The patient has the following: ACTIVE PROBLEM LIST Fibromyalgia Dysthymic Disorder Dyslipidemia Osteopenia Arthrosis Dysmetabolic Syndrome Obstructive Sleep Apnea (Adult) (Pediatric) Insomnia Elevated Antinuclear Antibody (Kelton) Level Encounter for Screening for Malignant Neoplasm of Colon Class 3 Severe Obesity Due to Excess Calories Without Serious Comorbidity With Body Mass Index (Bmi) of 40.0 to 44.9 in Adult (Hcc) Acquired Hypothyroidism Lumbar Spondylosis Spinal Stenosis of Lumbar Region With Neurogenic Claudication Pain in Joint, Multiple Sites Rls (Restless Legs Syndrome) Chronic Pain of Both Shoulders Htn (Hypertension) Cad (Coronary Artery Disease) COVID-19 Immunization Status COVID-19 VACCINE (Series Information) Completed 01/16/2022 Imm Admin: COVID-19 booster vaccine, age 18+ yr, bivalent (MODERNA) 08/01/2021 Imm Admin: COVID-19 original vaccine, full dose, monovalent (MODERNA) 02/23/2021 Imm Admin: COVID-19 original vaccine, booster dose, monovalent (MODERNA) Only the first 3 history entries have been loaded, but more history exists. Patient reports being fully vaccinated against COVID-19. CHIEF COMPLAINT: OUTPATIENT COLONOSCOPY HPI: Patient is a 67 year old female presenting for a screening colonoscopy. Patient's last colonoscopy was in 2018 and states a polyp was found so a five year follow up plan was recommended. She denies any known family history of inflammatory bowel disease or colon cancer. Patient denies any pain or any other symptoms at this time. She denies any other abdominal pain, nausea, vomiting, diarrhea, constipation or any blood or change in her stool. Patient denies any other specific radiating, alleviating or aggravating factors. COVID VACCINATION STATUS: Fully vaccinated REVIEW OF SYSTEMS: General: No weight loss, malaise or fevers. Neurological: No history of TIA's, stroke, COMMERCIAL CARPENTER tumor, impaired sensorium, hemiplegia, paraplegia or quadraplegia. No neurological symptoms or problems. Respiratory: Positive for: obstructive sleep apnea and CPAP/BiPAP compliant. Cardiovascular: Positive for: CAD and hypertension Negative for: angina, anticoagulation therapy, arrhythmia, atrial fibrillation, chest pain, CHF, congenital heart defect, DVT/PE, recent CT and murmur/valvular heart disease. GI: No history of GI symptoms or problems. No history of esophageal varices, recent ascites, or ETOH greater than 2 drinks per day. : No history of dysuria, frequency or incontinence, stones or chronic kidney disease. No difficulty urinating, nocturia > 1 time per night or hematuria. SHANK STAPLER: Negative for abnormal vaginal bleeding, abnormal vaginal discharge. Endocrine: Positive for: hypothyroidism. Negative for: diabetes mellitus and steroid for chronic problem. Hematology: No history of bleeding or clotting disorder. Patient is not taking anti-coagulation or platelet medications. No history of hematological symptoms or problems. Oncology: No history of CA metastasis, chemo within 30 days, or radiotherapy within 90 days. No history of oncological symptoms or problems. Psych: No history of psychiatric symptoms or problems. Musculoskeletal: Negative for joint pain or swelling, back pain or muscle pain. Skin: Negative for lesions, rash and itching. PAST MEDICAL HISTORY Diagnosis Date Abnormal mammogram, unspecified 06/27/2006 Acquired hypothyroidism 07/04/2017 CAD (coronary artery disease) CAD (coronary artery disease) 07/25/2022 Calculus of gallbladder with chronic cholecystitis without obstruction 08/01/2015 Corns and callosities 01/24/2014 Diarrhea Dysphagia 05/27/2015 feeling like food sits in bottom of esophagus if eats heavier than usual meal Dysthymic disorder Depression (non-psychotic) Elevated antinuclear antibody (KELTON) level 08/25/2014 Essential hypertension HTN (hypertension) 07/25/2022 Internal hemorrhoids without mention of complication Myalgia and myositis, unspecified FIBROMYALGIA Obesity, unspecified Obesity Obstructive sleep apnea [facility] Osteoarthritis of multiple joints PAIN LEG (Right) 02/20/2005 Temporomandibular joint disorders, unspecified 11/23/2006 PAST SURGICAL HISTORY Procedure Laterality Date ARTHRP KNE CONDYLE&PLATU MEDIAL&LAT COMPARTMENTS 09/2011 right DELIVERY ONLY , low cervical DELIVERY ONLY , low cervical COLONOSCOPY FLX DX W/COLLJ SPEC WHEN PFRMD 07/29/2017 Colonoscopy COLONOSCOPY W/BIOPSY SINGLE/MULTIPLE 02/10/2007 LAPS SURG CHOLECYSTECTOMY W/CHOLANGIOGRAPHY 08/17/2015 LEFT HEART CATH,PERCUTANEOUS PAST SURGICAL HISTORY OF foot-left PAST SURGICAL HISTORY OF left foot - no hardware STEREOTACTIC CORE BIOPSY 07/04/2006 UOQ RIGHT AVANI W/WO REMOVAL TUBE OVARY 1999 Hysterectomy, AVANI ovaries remain FAMILY HISTORY Problem Relation Age of Onset Diabetes Mother late in life at 75 Stroke Mother x3 Cancer Father myeloma (from immunesuppressants) at age 80 of chf and perf. bowel other (ESRD) Father had sudden renal failure; had kidney transplant at 68yo Thyroid Brother Hypertension Son No Known Problems Son Anesthesia Problems No Family History Blood Clots No Family History Clotting Disorder No Family History Social History Tobacco Use Smoking status: Never Smokeless tobacco: Never Vaping Use Vaping Use: Never used Substance Use Topics Alcohol use: Yes Alcohol/week: 18.0 standard drinks Types: 18 Glasses of wine per week Comment: wine with supper Drug use: No Prior to Admission medications as of 07/25/22 1348 Medication Sig Last Dose Taking BIPAP Taking Yes amLODIPine (NORVASC) 10 mg tablet Take 10 mg by mouth once daily. Taking Yes losartan (COZAAR) 100 mg tablet Take 100 mg by mouth once daily. Taking Yes aspirin 81 mg chewable tablet Take 81 mg by mouth once daily. Taking Yes ZINC ORAL Take by mouth. Taking Yes levothyroxine (SYNTHROID) 25 mcg tablet Take 1 tablet by mouth once daily. Taking Yes gabapentin (NEURONTIN) 400 mg capsule Take 2 capsule 60-90 minutes before bedtime. Taking Yes ubidecarenone Q-10 (COENZYME Q-10) 10 mg cap Take 50 mg by mouth once daily. Taking Yes CPAP Increase PAP setting to 17/13 cmH2O. Taking Yes OTC NUTRITIONAL SUPPLEMENT Take 2 capsules by mouth twice daily. Fibro Care Taking Yes Tozru-3-RAV-EPA-Fish Oil 300-1,000 mg cap Take 1,000 mg by mouth twice daily. Taking Yes hyperimmune colostrum, bovine 200 mg tab Take 2 tablets by mouth twice daily. Taking Yes colestipol (COLESTID) 1 gram tablet Take 1-2 tablets by mouth once daily. As directed Taking Yes Ca/D3/mag ox/zinc/commercial helicopter pilot/jose/bor (CALCIUM 600-D3 PLUS, MAG-ZINC, ORAL) Taking Yes turmeric/turmeric ext/pepr ext (TURMERIC-TURMERIC EXT-PEPPER) 900-100-5 mg cap Taking Yes CPAP Bipap 17/13 cm H2O, Heat Humidity, suitable mask, Lifetime supplies, opt Chinstrap, G47.33. Taking Yes cholecalciferol (VITAMIN D3) 2,000 unit tablet Take 2,000 Units by mouth once daily. Taking Yes FLUoxetine HCl (PROZAC) 40 mg capsule Take 1 capsule by mouth once daily. (Dr. Garcia) Taking Yes traZODone (DESYREL) 50 mg tablet Take 1 tablet by mouth daily at bedtime. Taking Yes CYANOCOBALAMIN, VITAMIN B-12, (VITAMIN B-12 ORAL) Take by mouth. Taking Yes buPROPion XL (WELLBUTRIN XL) 150 mg 24 hr tablet Take one(1) tablet daily. Taking Yes Biotin (NAIL-EX) 2,500 mcg ORAL Tab Take one(1) tablet daily. Taking Yes DAILY VITAMIN TAB Take one(1) tablet daily. Taking Yes No medication comments found. ALLERGIES No Known Allergies Objective PHYSICAL EXAM: (if completed, exam performed via video enabled technology) General: alert and oriented, healthy appearance and morbidly obese. Pertinent negatives noted - not distressed. Skin: normal color, no rash or lesions. HEENT: Head is normocephalic, no abnormality or lesion noted Eyes show no injection and visual acuity is grossly normal Ears note grossly normal hearing Nose exam notes external nose is normal without rhinorrhea Oropharynx exam notes moist mucous membranes with no noted tonsillar hypertrophy, erythema or edema Uvula is midline. . Cardiovascular: Patient palpated radial pulse, regular when counted aloud by patient. Capillary refill is less than 3 seconds in bilateral upper extremities. . Respiratory: Equal chest rise with normal respiratory effort . Abdomen: soft. Pertinent negatives noted - not distended and not tender. No pain upon palpation by patient . Extremities: no deformity, no edema or tenderness, no joint swelling or clubbing. Neurological: normal cognition and motor skills. Gait stated to be normal per patient . PAIN ASSESSMENT: VITALS: BP [BP yesterday of 130/70 reviewed[ Pulse 80 Temp [does not have a thermometer available - feeling well[ Resp 17 Ht 5' 5 (1.65m) Wt 253 lb (114.8kg) BMI 42.10 kg/(m^2). Diagnostic tests reviewed for today's visit: Lab Value Units Date High Low HB 14.0 g/dL 02/03/2022 15.5 11.5 HCT 43.8 % 02/03/2022 46.0 36.0 WBC 4.84 k/uL 02/03/2022 11.00 3.70 PLT 284 k/uL 02/03/2022 400 150 NA 140 mmol/L 02/03/2022 144 136 K 4.4 mmol/L 02/03/2022 5.1 3.7 GLUC 98 mg/dL 02/03/2022 99 74 BUN 14 mg/dL 02/03/2022 21 7 CREAT 0.70 mg/dL 02/03/2022 0.96 0.58 PTSEC No results within date range. INR No results within date range. APTT No results within date range. ALT 24 U/L 02/03/2022 38 7 AST 25 U/L 02/03/2022 35 13 TBILI 0.4 mg/dL 02/03/2022 1.3 0.2 TSH 1.090 mIU/L 02/03/2022 4.200 0.270 Lab Value Units Date High Low HCGQT No results within date range. UHCG No results within date range. HCG, BODY* No results within date range. Lab Value Units Date High Low ABORHD No results within date range. ABSCREEN No results within date range. Hemoglobin A1C (%) Date Value 09/09/2021 5.4 12/24/2018 5.4 08/09/2018 5.3 12/25/2017 5.5 06/14/2017 5.5 08/21/2014 5.9 Recent Results (from the past 8760 hour(s)) ECG COMPLETE Collection Time: 02/05/22 1:25 PM Result Value Ventricular Rate 105 Atrial Rate 105 P-R Interval 192 QRS Duration 90 QT Interval 356 QTC Calculation (Bazett) 470 Calculated P [place] 64 Calculated R [place] 57 Calculated T [place] 34 Impression SINUS TACHYCARDIA POSSIBLE LEFT ATRIAL ENLARGEMENT BORDERLINE ECG Confirmed by JASON HERNANDEZ M.D. ([id number]) on 02/06/2022 4:13:43 PM Recent Results (from the past 43164 hour(s)) ECHO Collection Time: 02/09/22 1:50 PM Impression CONCLUSIONS: - Exam indication: Shortness of Breath - The left ventricle is normal in size. Left ventricular systolic function is normal. EF = 65 5% (2D 4-ch.) Grade I left ventricular diastolic dysfunction. - The right ventricle is normal in size. Right ventricular systolic function is normal. - There are no significant valvular abnormalities. - Exam was compared with the prior echocardiographic exam performed on 03/27/2021, no significant change. * * * Final * * * Assessment Patient has the following medical conditions which may affect digna-operative course: HTN (hypertension) Assessment: States is well controlled with medication and denies any recent exacerbations Follows with PCP and cardiology, Dr. Gaming Recent cath, no stents placed 50% occlusion in a diagonal artery CAD (coronary artery disease) Assessment: history of cath in April 2022; no stents placed; per pt 50% occlusion in a diagonal artery Occurred after elevated BP, palpitations and progressive SOB. Cardiology ordered stress test and then the cath based on stress test results. Following with Dr. Gaming with [facility] Is on ASA 81 mg for prevention Fibromyalgia Assessment: States is well controlled with medication and denies any recent exacerbations Follows with PCP and rheumatology States is stiff every morning, worse with weather changes Obstructive sleep apnea (adult) (pediatric) Assessment: compliant with BiPAP Pt plans to bring with her for her procedure Acquired hypothyroidism Assessment: States is well controlled with medication and denies any recent dosage adjustments Follows with PCP and endocrinology Class 3 severe obesity due to excess calories without serious comorbidity with body mass index (BMI) of 40.0 to 44.9 in adult (HCC) Assessment: Body mass index is 42.1 kg/m . Miller Activity Status Index: METS: Climb a flight of stairs or walk up a hill (5.50 METs) DASI Score: 5.5 Patient denies any chest pain or undue shortness of breath with the above physical activity. Clinical Frailty Scale: 3. Well, with treated comorbid disease STOP-Bang Score: STOP-Bang Score: 0 (Known NELI- compliant with BiPAP ) [id number] Score: Hypertension history: Yes [id number] Score: 1 ASA Class: 3 ANESTHESIA FINDINGS: Intubation History: No history of difficult intubation. No abnormal airway history Significant Anesthesia Considerations: none Airway History: No prior anesthesia report available for review at this time. No history of difficult airway No abnormal airway history I - PHYSICAL EVALUATION AIRWAY Patient intubated: No. Tracheostomy tube not present Mallampati: III. TM distance: >3 FB. Neck ROM: full ROM without neurological symptoms. Mouth opening: adequate. Short neck: yes. Additional comments: TMJ - no locking or pain - wears a mouth guard at night . Thick neck: yes Bledsoe present: no Lip Bite Test: I Microretrognathia/Micronagthia/Rec essed Chin: No DENTAL Dental findings: teeth intact. Additional comments: Denies any chipped or broken teeth. Denies any dental pain or infections. Few missing teeth . II - ANESTHESIA PLAN ASA Score: 3 Anesthetic Plan: other Anesthetic plan additional comments: *PACC/TCI - anesthesia choice. Beta Duc Monitoring Plan Post Procedure Analgesic Plan Prepared for Surgery: optimally prepared for surgery. CONSULTS: Patient does not require consults for optimization at this time Planned Anesthetic: other anesthesia choice The Following Tests/Procedures Have Been Initiated: No orders of the defined types were placed in this encounter. Instructions Given to Patient: Instructions located in the after visit summary. Patient given verbal and written preop instructions and voices comprehension and compliance. SIGNATURE: Blossom Murray PA-C PATIENT NAME: Priscilla Ramos DATE: July 25, 2022 TIME: 1:00 PM PAGER/CONTACT #: documented in this encounter [facility] 07-24-2022 History of Present illness Narrative This note was created using [employer]. Subjective Priscilla Ramos is a 67 year old female. HPI Patient presents with a chief complaint of left wrist pain since yesterday. She had fallen while she was walking on an outstretched left wrist. She had iced it last night and wrapped it with an Kain wrap but it was still bothering her this morning so she came in for evaluation. She is right-handed. No problems with the wrist previously. Review of Systems Musculoskeletal: Left wrist pain All other systems reviewed and are negative. PAST MEDICAL HISTORY Diagnosis Date Abnormal mammogram, unspecified 06/27/2006 Acquired hypothyroidism 07/04/2017 CAD (coronary artery disease) Calculus of gallbladder with chronic cholecystitis without obstruction 08/01/2015 Corns and callosities 01/24/2014 Diarrhea Dysphagia 05/27/2015 feeling like food sits in bottom of esophagus if eats heavier than usual meal Dysthymic disorder Depression (non-psychotic) Elevated antinuclear antibody (KELTON) level 08/25/2014 Essential hypertension Internal hemorrhoids without mention of complication Myalgia and myositis, unspecified FIBROMYALGIA Obesity, unspecified Obesity Obstructive sleep apnea [facility] Osteoarthritis of multiple joints PAIN LEG (Right) 02/20/2005 Temporomandibular joint disorders, unspecified 11/23/2006 Current Outpatient Medications Medication Sig Dispense Refill BIPAP amLODIPine (NORVASC) 10 mg tablet Take 10 mg by mouth once daily. losartan (COZAAR) 100 mg tablet Take 100 mg by mouth once daily. aspirin 81 mg chewable tablet Take 81 mg by mouth once daily. ZINC ORAL Take by mouth. levothyroxine (SYNTHROID) 25 mcg tablet Take 1 tablet by mouth once daily. 90 tablet 3 gabapentin (NEURONTIN) 400 mg capsule Take 2 capsule 60-90 minutes before bedtime. 180 capsule 0 ubidecarenone Q-10 (COENZYME Q-10) 10 mg cap Take 50 mg by mouth once daily. CPAP Increase PAP setting to 17/13 cmH2O. 1 Each 99 OTC NUTRITIONAL SUPPLEMENT Take 2 capsules by mouth twice daily. Fibro Care Veiyy-2-EYZ-EPA-Fish Oil 300-1,000 mg cap Take 1,000 mg by mouth twice daily. hyperimmune colostrum, bovine 200 mg tab Take 2 tablets by mouth twice daily. colestipol (COLESTID) 1 gram tablet Take 1-2 tablets by mouth once daily. As directed 60 tablet 11 Ca/D3/mag ox/zinc/commercial helicopter pilot/jose/bor (CALCIUM 600-D3 PLUS, MAG-ZINC, ORAL) turmeric/turmeric ext/pepr ext (TURMERIC-TURMERIC EXT-PEPPER) 900-100-5 mg cap CPAP Bipap 17/13 cm H2O, Heat Humidity, suitable mask, Lifetime supplies, opt Chinstrap, G47.33. 1 Device 0 cholecalciferol (VITAMIN D3) 2,000 unit tablet Take 2,000 Units by mouth once daily. FLUoxetine HCl (PROZAC) 40 mg capsule Take 1 capsule by mouth once daily. (Dr. Garcia) traZODone (DESYREL) 50 mg tablet Take 1 tablet by mouth daily at bedtime. CYANOCOBALAMIN, VITAMIN B-12, (VITAMIN B-12 ORAL) Take by mouth. buPROPion XL (WELLBUTRIN XL) 150 mg 24 hr tablet Take one(1) tablet daily. 0 Biotin (NAIL-EX) 2,500 mcg ORAL Tab Take one(1) tablet daily. 0 DAILY VITAMIN TAB Take one(1) tablet daily. 0 Current Facility-Administered Medications Medication Dose Route Frequency Provider Last Rate Last Admin perflutren lipid microspheres 1.3 mL in NaCl (PF) 0.9% 10 mL injection (DEFINITY) INTRAVENOUS DIRECTED PRN Emilee Condon MD sodium chloride 0.9 % (flush) 10 mL (BD POSIFLUSH) 10 mL INTRAVENOUS DIRECTED PRN Emilee Condon MD PAST SURGICAL HISTORY Procedure Laterality Date ARTHRP KNE CONDYLE&PLATU MEDIAL&LAT COMPARTMENTS 09/2011 right DELIVERY ONLY , low cervical DELIVERY ONLY , low cervical COLONOSCOPY FLX DX W/COLLJ SPEC WHEN PFRMD 07/29/2017 Colonoscopy COLONOSCOPY W/BIOPSY SINGLE/MULTIPLE 02/10/2007 LAPS SURG CHOLECYSTECTOMY W/CHOLANGIOGRAPHY 08/17/2015 LEFT HEART CATH,PERCUTANEOUS PAST SURGICAL HISTORY OF foot-left STEREOTACTIC CORE BIOPSY 07/04/2006 UOQ RIGHT AVANI W/WO REMOVAL TUBE OVARY 1999 Hysterectomy, AVANI ovaries remain FAMILY HISTORY Problem Relation Age of Onset Diabetes Mother late in life at 75 Stroke Mother x3 Cancer Father myeloma (from immunesuppressants) at age 80 of chf and perf. bowel other (ESRD) Father had sudden renal failure; had kidney transplant at 68yo Thyroid Brother Hypertension Son No Known Problems Son Social History Tobacco Use Smoking status: Never Smokeless tobacco: Never Vaping Use Vaping Use: Never used Substance Use Topics Alcohol use: Yes Alcohol/week: 18.0 standard drinks Types: 18 Glasses of wine per week Comment: wine with supper Drug use: No Objective BP 130/70 Pulse 80 Temp 36.6 C (97.9 F) Resp 16 Wt 114.8 kg (253 lb) SpO2 97% BMI 42.10 kg/m Physical Exam Vitals reviewed. Constitutional: Appearance: Normal appearance. HENT: Head: Normocephalic and atraumatic. Musculoskeletal: Comments: Exam of the left wrist reveals minimal swelling at the distal radius. She is tender on palpation here. No obvious bruising. No tenderness on the snuffbox. She does have pain in the wrist with range of motion of the thumb however. No tenderness of the MCP or interphalangeal joint of the thumb or the proximal or distal phalanx. She does have an abrasion to the distal left thumb. No tenderness of the metacarpals of the hand. Radial pulse 2+. Pain with flexion and extension of the wrist as well as pronation and supination. Skin: General: Skin is warm and dry. Neurological: Mental Status: She is alert. Assessment and Plan ASSESSMENT/PLAN: 1. Wrist injury, left, initial encounter - ICD9: 959.3, ICD10: S69.92XA X-rays show no fracture, she does have some arthritis. Recommended if not improving over the next 5 to 7 days to have a follow-up with orthopedics or PCP for possible repeat imaging. Rest, ice, Tylenol for pain. I placed her in a thumb spica wrist splint. Patient agreeable with plan. - XR WRIST INJURY 4V PA/LAT/OBL/SCAPH LEFT - CONSULT TO ORTHOPAEDICS Mar Williamson PA-C documented in this encounter [facility] 07-24-2022 History of Present illness Narrative Radiology Service Progress Note PATIENT NAME: Priscilla Ramos DATE OF SERVICE: July 24, 2022 TIME: 9:10 AM PATIENT IDENTITY VERIFICATION COMPLETED USING TWO (2) IDENTIFIERS: Name and Date of confirmed by patient verbally. FALL SCREENING: Has the patient had 2 falls in the last year or 1 fall with injury or currently using an Ambulatory Assistive Device (Walker, Cane, Wheelchair, Crutches, etc.)? No PATIENT GENDER DATA: Female. status: : No status: NO. PATIENT RELEVANT IMPLANT DATA REVIEWED: Not Applicable RADIOLOGY DEPARTMENT: General X-ray: Exam(s) Completed: Upper Extremity X-Ray(s): Wrist, left PERIPHERAL IV DATA: Not applicable SIGNED BY: RT Glendy(R) July 24, 2022 9:10 AM documented in this encounter [facility] 07-24-2022 Instructions Mar Williamson PA-C - 07/24/2022 9:29 AM EDT If not improving in 5-7 days, recommend follow up with pcp or orthopedics. documented in this encounter [facility] 07-10-2022 Instructions Vivien Mcintosh MD - 07/10/2022 9:20 AM EDT Repeat a thyroid ultrasound in Feb 2023 Call in August or early to schedule a November follow up with me. documented in this encounter [facility] 07-10-2022 History of Present illness Narrative REFERRING PHYSICIAN: Larry Darnell [address] [place] [address], [address] [place] [address] REASON FOR REFERRAL:Thyroid nodule My final recommendations will be communicated back to the requesting physician by way of shared Medical record or a letter via [place] mail SUBJECTIVE: Priscilla Ramos is a 67 year old female was referred for evaluation of a thyroid nodules. History in brief, she was noted to have incidental thyroid nodule on Chest CT in Feb Further evaluation with thyroid US at that time revealed The right thyroid lobe measures 4.4 x 1.9 x 1.9 cm. The left thyroid lobe measures 4.6 x 1.9 x 1.8 cm. The thyroid isthmus measures 2 mm in thickness. Parenchyma: The parenchyma is homogeneous. NODULES: Most suspicious nodules (up to 4) detailed below: Nodule #1 Location: Right upper pole Size: 10 x 7 x 8 mm Characteristics: Composition: Solid or almost completely solid, 2 points Echogenicity: Hypoechoic, 2 points Shape: [id number]-rqcm-[id number], 0 points Margin: Smooth, 0 points Echogenic foci: None, 0 points TI-RADS Category: 4 ACR Recommendation: Follow up imaging in 1, 2, 3 and 5 years is advised. Nodule #2 Location: Right midpole Size: 1.3 x 1.1 x 0.9 cm Characteristics: Composition: Solid or almost completely solid, 2 points Echogenicity: Hypoechoic, 2 points Shape: [id number], 0 points Margin: smooth or ill defined. 0 points Echogenic foci: None, 0 points TI-RADS Category: 4 ACR Recommendation: Follow up imaging in 1, 2, 3 and 5 years is advised. Nodule #3 Location: Right midpole Size: 1.2 x 1 x 0.8 cm Characteristics: Composition: Solid or almost completely solid, 2 points Echogenicity: Hypoechoic, 2 points Shape: Akkmn-tidm-pbzz, 0 points Margin: Smooth, 0 points Echogenic foci: None, 0 points TI-RADS Category: 4 ACR Recommendation: Follow up imaging in 1, 2, 3 and 5 years is advised. Nodule #4 Location: Left midpole Size: 1.3 x 1.3 x 1 cm Characteristics: Composition: Mixed cystic and solid, 1 point Echogenicity: Hypoechoic, 2 points Shape: Jdhkx-ribd-[id number], 0 points Margin: Smooth, 0 points Echogenic foci: None, 0 points TI-RADS Category: 3 ACR Recommendation: No FNA or further imaging is advised. Related symptoms: Swallowing difficulty: No Shortness of breath when lying flat: No History of radiation exposure to the neck: No Family history of thyroid cancer: No Her brother has a thyroid disorder but not thyroid cancer. PAST MEDICAL HISTORY Diagnosis Date Abnormal mammogram, unspecified 06/27/2006 Acquired hypothyroidism 07/04/2017 CAD (coronary artery disease) Calculus of gallbladder with chronic cholecystitis without obstruction 08/01/2015 Corns and callosities 01/24/2014 Diarrhea Dysphagia 05/27/2015 feeling like food sits in bottom of esophagus if eats heavier than usual meal Dysthymic disorder Depression (non-psychotic) Elevated antinuclear antibody (KELTON) level 08/25/2014 Essential hypertension Internal hemorrhoids without mention of complication Myalgia and myositis, unspecified FIBROMYALGIA Obesity, unspecified Obesity Obstructive sleep apnea [facility] Osteoarthritis of multiple joints PAIN LEG (Right) 02/20/2005 Temporomandibular joint disorders, unspecified 11/23/2006 PAST SURGICAL HISTORY Procedure Laterality Date ARTHRP KNE CONDYLE&PLATU MEDIAL&LAT COMPARTMENTS 09/2011 right DELIVERY ONLY , low cervical DELIVERY ONLY , low cervical COLONOSCOPY FLX DX W/COLLJ SPEC WHEN PFRMD 07/29/2017 Colonoscopy COLONOSCOPY W/BIOPSY SINGLE/MULTIPLE 02/10/2007 LAPS SURG CHOLECYSTECTOMY W/CHOLANGIOGRAPHY 08/17/2015 LEFT HEART CATH,PERCUTANEOUS PAST SURGICAL HISTORY OF foot-left STEREOTACTIC CORE BIOPSY 07/04/2006 UOQ RIGHT AVANI W/WO REMOVAL TUBE OVARY 1999 Hysterectomy, AVANI ovaries remain ALLERGIES No Known Allergies Social History Tobacco Use Smoking status: Never Smokeless tobacco: Never Vaping Use Vaping Use: Never used Substance Use Topics Alcohol use: Yes Alcohol/week: 18.0 standard drinks Types: 18 Glasses of wine per week Comment: wine with supper Drug use: No FAMILY HISTORY Problem Relation Age of Onset Diabetes Mother late in life at 75 Stroke Mother x3 Cancer Father myeloma (from immunesuppressants) at age 80 of chf and perf. bowel other (ESRD) Father had sudden renal failure; had kidney transplant at 68yo Thyroid Brother Hypertension Son No Known Problems Son MEDICATIONS: Current Outpatient Medications on File Prior to Visit Medication Sig BIPAP amLODIPine (NORVASC) 10 mg tablet Take 10 mg by mouth once daily. losartan (COZAAR) 100 mg tablet Take 100 mg by mouth once daily. aspirin 81 mg chewable tablet Take 81 mg by mouth once daily. ZINC ORAL Take by mouth. levothyroxine (SYNTHROID) 25 mcg tablet Take 1 tablet by mouth once daily. gabapentin (NEURONTIN) 400 mg capsule Take 2 capsule 60-90 minutes before bedtime. ubidecarenone Q-10 (COENZYME Q-10) 10 mg cap Take 50 mg by mouth once daily. CPAP Increase PAP setting to 17/13 cmH2O. OTC NUTRITIONAL SUPPLEMENT Take 2 capsules by mouth twice daily. Fibro Care Gyfzy-4-FYY-EPA-Fish Oil 300-1,000 mg cap Take 1,000 mg by mouth twice daily. hyperimmune colostrum, bovine 200 mg tab Take 2 tablets by mouth twice daily. colestipol (COLESTID) 1 gram tablet Take 1-2 tablets by mouth once daily. As directed Ca/D3/mag ox/zinc/commercial helicopter pilot/jose/bor (CALCIUM 600-D3 PLUS, MAG-ZINC, ORAL) turmeric/turmeric ext/pepr ext (TURMERIC-TURMERIC EXT-PEPPER) 900-100-5 mg cap CPAP Bipap 17/13 cm H2O, Heat Humidity, suitable mask, Lif[employer] supplies, opt Chinstrap, G47.33. cholecalciferol (VITAMIN D3) 2,000 unit tablet Take 2,000 Units by mouth once daily. FLUoxetine HCl (PROZAC) 40 mg capsule Take 1 capsule by mouth once daily. (Dr. Garcia) traZODone (DESYREL) 50 mg tablet Take 1 tablet by mouth daily at bedtime. CYANOCOBALAMIN, VITAMIN B-12, (VITAMIN B-12 ORAL) Take by mouth. buPROPion XL (WELLBUTRIN XL) 150 mg 24 hr tablet Take one(1) tablet daily. Biotin (NAIL-EX) 2,500 mcg ORAL Tab Take one(1) tablet daily. DAILY VITAMIN TAB Take one(1) tablet daily. Current Facility-Administered Medications on File Prior to Visit Medication perflutren lipid microspheres 1.3 mL in NaCl (PF) 0.9% 10 mL injection (DEFINITY) sodium chloride 0.9 % (flush) 10 mL (BD POSIFLUSH) REVIEW OF SYSTEMS: Answers submitted by the patient for this visit: Endocrine Review of Systems (Submitted on 07/08/2022) Fatigue: Yes Night Sweats: No Recent Unintentional Weight Change: No Skin Color Changes: No Post-Nasal Drip: No Thyroid Pain (lower neck): No Trouble Swallowing: No Vision Disturbance: No Chest Pain: No Leg Swelling: Yes Blood Clots?: No Leg Pain while walking?: Yes Difficulty Breathing?: No Heartburn: No Nausea: No Vomiting?: No Diarrhea: No Constipation: No Abdominal Pain: No Bone Pain?: No Muscle Aches: Yes Muscle Weakness: Yes Joint Pain or Stiffness: Yes Headaches: No Dizziness: No Numbness?: Yes Urgency to Urinate?: No Increased Urination?: No Slow or Small Urine Stream?: Yes Have your menstrual cycles stopped?: Yes Flushing?: Yes Hot Flashes?: No Increased Thirst: No Change in Body Hair?: No Cold Intolerance: Yes Heat Intolerance?: No PHYSICAL EXAMINATION: BP 135/82 Pulse 77 Ht 165.1 cm (5' 5) Wt 115.2 kg (254 lb) SpO2 98% BMI 42.27 kg/m General: no acute distress, alert and orientated X 3, obese Eyes:EOMIpupils are equally round, anicteric sclera Neck - supple, no significant adenopathy, Thyroid: normal size, palpable left thyroid nodule Neuro - alert, oriented, normal speech, no focal findings noted CV - normal rate and regular rhythm, S1 and S2 normal. Chest:Lungs clear to auscultation. No wheezing, rhonchi, rales Abdominal: soft, non-tender. Bowel sounds normal. Musculoskeletal - no joint tenderness, deformity or swelling Extremities- no edema, no discoloration Skin- no rash or erythema LABS AND IMAGING Thyroid US- see above TSH Date Value Ref Range Status 02/03/2022 1.090 0.270 - 4.200 mIU/L Final Free T4 Date Value Ref Range Status 02/03/2022 1.3 0.9 - 1.7 ng/dL Final ASSESSMENT AND PLAN: 1. Multiple Thyroid nodules: No risk factors for thyroid malignancy Indicated to the patient that thyroid nodules have a 5-10% risk of malignancy. I personally reviewed the images of the thyroid ultrasound and discussed the findings with the patient. At this time, none of these nodules meet the criteria for FNA My recommendation is to repeat the thyroid US in Feb 2023 to reassess the size of thyroid nodules Follow up with me in February, prior to the appt Vivien Mcintosh MD 07/10/22 [address] this encounter [facility] 06-26-2022 Nurse Note REVIEW OF SYSTEMS: General: The patient NOTES fatigue, denies weight loss, denies weight gain, denies feeling hot, and denies feelings of cold. Eyes: The patient denies glaucoma, denies eye injury/surgery, wears glasses or contacts. Ear/Nose/Throat: The patient denies allergies, denies hayfever, denies ear infections, and denies bloody noses. Cardiovascular: The patient denies chest pain, NOTES heart disease, NOTES high blood pressure,denies cardiac stent, denies prior heart attack, denies irregular heart beat, denies high cholesterol, denies poor circulation, denies heart failure, other cardiac issues, denies claudication, denies cold feet, denies peripheral arterial stent. Respiratory: The patient denies tuberculosis, denies pneumonia, denies frequent cough, denies pulmonary embolism, denies shortness of breath, and denies coughing up blood. Gastrointestinal: The patient denies difficulty swallowing, denies acid reflux, denies ulcers, denies vomiting, denies jaundice/hepatitis, denies gallbladder problems, denies black or tarry stools, denies hemorrhoids, denies bleeding from rectum, denies diverticulitis, denies constipation, denies diarrhea, denies loss of stool control, and denies hernias. Kidney/Bladder: The patient denies kidney stones, denies urine infections, and denies bloody urine. Skin: The patient denies a history of skin cancer, denies bleeding/changing moles, and denies a history of skin rash. Neurologic: The patient denies a history of epilepsy/convulsions, denies headaches, denies head/spinal injuries, and denies stroke/TIA. Psychiatric: The patient denies psychiatric medications, NOTES depression, and denies voices, denies substance abuse. Endocrine: The patient NOTES thyroid disorders, denies diabetes, and denies hormonal problems. Hematologic: The patient denies a history of bruising, denies bleeding, and denies anemia, denies blood clots. Infections: The patient denies a history of measles and mumps, denies rheumatic fever, and denies sexually transmitted diseases. Musculoskeletal: The patient NOTES back pain/injury, denies back problems, denies sciatica, denies knee/foot trouble, NOTES arthritis, or denies gout. When was patient's last Mammogram screening? N/A Last Colonoscopy: N/A Angella Hernandez LPN documented in this encounter [facility] 06-26-2022 History of Present illness Narrative HISTORY AND PHYSICAL Priscilla Jaja Óscar 1955 REFERRING PHYSICIAN: Emilee Condon MD CHIEF COMPLAINT: Consult (Colonoscopy consult) HPI: The patient is a 67 year old female referred for endoscopy. Priscilla notes no colon complaints. Patient denies any change in bowel habits, weight changes, blood in stools, black tarry stools or abdominal pain. Denies family history of colon issues. The patient notes no upper GI complaints. Priscilla has undergone prior endoscopy. Last colonoscopy 07/29/17 Dr. Morris with removal of adenomatous polyp, 5 year repeat recommended. Patient had recent cardiac catheterization d/t abnormal stress test. No blockages, no interventions performed. She has upcoming follow-up with Dr. Gaming. PAST MEDICAL HISTORY Diagnosis Date Abnormal mammogram, unspecified 06/27/2006 Acquired hypothyroidism 07/04/2017 CAD (coronary artery disease) Calculus of gallbladder with chronic cholecystitis without obstruction 08/01/2015 Corns and callosities 01/24/2014 Diarrhea Dysphagia 05/27/2015 feeling like food sits in bottom of esophagus if eats heavier than usual meal Dysthymic disorder Depression (non-psychotic) Elevated antinuclear antibody (KELTON) level 08/25/2014 Essential hypertension Internal hemorrhoids without mention of complication Myalgia and myositis, unspecified FIBROMYALGIA Obesity, unspecified Obesity Obstructive sleep apnea [facility] Osteoarthritis of multiple joints PAIN LEG (Right) 02/20/2005 Temporomandibular joint disorders, unspecified 11/23/2006 PAST SURGICAL HISTORY Procedure Laterality Date ARTHRP KNE CONDYLE&PLATU MEDIAL&LAT COMPARTMENTS 09/2011 right DELIVERY ONLY , low cervical DELIVERY ONLY , low cervical COLONOSCOPY FLX DX W/COLLJ SPEC WHEN PFRMD 07/29/2017 Colonoscopy COLONOSCOPY W/BIOPSY SINGLE/MULTIPLE 02/10/2007 LAPS SURG CHOLECYSTECTOMY W/CHOLANGIOGRAPHY 08/17/2015 LEFT HEART CATH,PERCUTANEOUS PAST SURGICAL HISTORY OF foot-left STEREOTACTIC CORE BIOPSY 07/04/2006 UOQ RIGHT AVANI W/WO REMOVAL TUBE OVARY 1999 Hysterectomy, AVANI ovaries remain Current Outpatient Medications Medication Sig levothyroxine (SYNTHROID) 25 mcg tablet Take 1 tablet by mouth once daily. gabapentin (NEURONTIN) 400 mg capsule Take 2 capsule 60-90 minutes before bedtime. ubidecarenone Q-10 (COENZYME Q-10) 10 mg cap Take 50 mg by mouth once daily. CPAP Increase PAP setting to 17/13 cmH2O. OTC NUTRITIONAL SUPPLEMENT Take 2 capsules by mouth twice daily. Fibro Care Agjxe-2-ZUL-EPA-Fish Oil 300-1,000 mg cap Take 1,000 mg by mouth twice daily. hyperimmune colostrum, bovine 200 mg tab Take 2 tablets by mouth twice daily. colestipol (COLESTID) 1 gram tablet Take 1-2 tablets by mouth once daily. As directed Ca/D3/mag ox/zinc/commercial helicopter pilot/jose/bor (CALCIUM 600-D3 PLUS, MAG-ZINC, ORAL) turmeric/turmeric ext/pepr ext (TURMERIC-TURMERIC EXT-PEPPER) 900-100-5 mg cap CPAP Bipap 17/13 cm H2O, Heat Humidity, suitable mask, [employer] supplies, opt Chinstrap, G47.33. cholecalciferol (VITAMIN D3) 2,000 unit tablet Take 2,000 Units by mouth once daily. FLUoxetine HCl (PROZAC) 40 mg capsule Take 1 capsule by mouth once daily. (Dr. Garcia) traZODone (DESYREL) 50 mg tablet Take 1 tablet by mouth daily at bedtime. CYANOCOBALAMIN, VITAMIN B-12, (VITAMIN B-12 ORAL) Take by mouth. buPROPion XL (WELLBUTRIN XL) 150 mg 24 hr tablet Take one(1) tablet daily. Biotin (NAIL-EX) 2,500 mcg ORAL Tab Take one(1) tablet daily. DAILY VITAMIN TAB Take one(1) tablet daily. Current Facility-Administered Medications Medication Dose Route Frequency perflutren lipid microspheres 1.3 mL in NaCl (PF) 0.9% 10 mL injection (DEFINITY) INTRAVENOUS DIRECTED PRN sodium chloride 0.9 % (flush) 10 mL (BD POSIFLUSH) 10 mL INTRAVENOUS DIRECTED PRN ALLERGIES: Patient has no known allergies. PERSONAL HISTORY: Social History Tobacco Use Smoking status: Never Smokeless tobacco: Never Vaping Use Vaping Use: Never used Substance Use Topics Alcohol use: Yes Alcohol/week: 18.0 standard drinks Types: 18 Glasses of wine per week Comment: wine with supper Drug use: No FAMILY HISTORY: FAMILY HISTORY Problem Relation Age of Onset Diabetes Mother late in life at 75 Stroke Mother x3 Cancer Father myeloma (from immunesuppressants) at age 80 of chf and perf. bowel other (ESRD) Father had sudden renal failure; had kidney transplant at 68yo Thyroid Brother Hypertension Son No Known Problems Son REVIEW OF SYMPTOMS: The review of systems data was entered by the nurse and reviewed by or Nursing Notes: Angella Hernandez LPN 06/26/2022 11:16 AM Signed REVIEW OF SYSTEMS: General: The patient NOTES fatigue, denies weight loss, denies weight gain, denies feeling hot, and denies feelings of cold. Eyes: The patient denies glaucoma, denies eye injury/surgery, wears glasses or contacts. Ear/Nose/Throat: The patient denies allergies, denies hayfever, denies ear infections, and denies bloody noses. Cardiovascular: The patient denies chest pain, NOTES heart disease, NOTES high blood pressure,denies cardiac stent, denies prior heart attack, denies irregular heart beat, denies high cholesterol, denies poor circulation, denies heart failure, other cardiac issues, denies claudication, denies cold feet, denies peripheral arterial stent. Respiratory: The patient denies tuberculosis, denies pneumonia, denies frequent cough, denies pulmonary embolism, denies shortness of breath, and denies coughing up blood. Gastrointestinal: The patient denies difficulty swallowing, denies acid reflux, denies ulcers, denies vomiting, denies jaundice/hepatitis, denies gallbladder problems, denies black or tarry stools, denies hemorrhoids, denies bleeding from rectum, denies diverticulitis, denies constipation, denies diarrhea, denies loss of stool control, and denies hernias. Kidney/Bladder: The patient denies kidney stones, denies urine infections, and denies bloody urine. Skin: The patient denies a history of skin cancer, denies bleeding/changing moles, and denies a history of skin rash. Neurologic: The patient denies a history of epilepsy/convulsions, denies headaches, denies head/spinal injuries, and denies stroke/TIA. Psychiatric: The patient denies psychiatric medications, NOTES depression, and denies voices, denies substance abuse. Endocrine: The patient NOTES thyroid disorders, denies diabetes, and denies hormonal problems. Hematologic: The patient denies a history of bruising, denies bleeding, and denies anemia, denies blood clots. Infections: The patient denies a history of measles and mumps, denies rheumatic fever, and denies sexually transmitted diseases. Musculoskeletal: The patient NOTES back pain/injury, denies back problems, denies sciatica, denies knee/foot trouble, NOTES arthritis, or denies gout. When was patient's last Mammogram screening? N/A Last Colonoscopy: N/A Angella Hernandez LPN I have confirmed and edited as necessary, the PFSH and ROS obtained by others. Iman [place], PA-C PHYSICAL EXAMINATION: General: The patient is 67 year old female, well nourished, well hydrated in no acute distress. The patient is oriented to time, place, and person. VITALS: Blood pressure 128/72, pulse 89, temperature 36.4 C (97.6 F), height 165.1 cm (5' 5), weight 116 kg (255 lb 12.8 oz), SpO2 96 %. There is no height or weight on file to calculate BMI. HEENT: Normal cephalic, ataumatic, pupils are equally round, sclera are anicteric, mucous membranes are moist, oropharynx is clear. Neck has no masses, asymmetry or lymphadenopathy. Respiratory: Clear to auscultation and percussion. Normal respiratory excursion and pattern. Cardiac: Examination is regular rate and rhythm. Normal S1/S2 Abdominal exam: Soft, nontender, with no palpable masses. No hepatosplenomegaly. No palpable hernias. Extremities: no clubbing, cyanosis or edema. No adenopathy. LABORATORY VALUES: As Noted RADIOLOGIC STUDIES: As Noted Assessment IMPRESSION: encounter for high-risk screening colonoscopy, history of colon polyp PLAN: I have reviewed my findings with the surgeon. Will plan for lower endoscopy. We discussed the risks and benefits of the planned endoscopy. I have informed the patient that complications can occur including failure to complete the endoscopy and perforation. The patient had the opportunity to ask questions concerning the planned endoscopy. My staff has also explained the procedure to the patient in understandable terms and has given the patient printed material concerning the procedure. The patient freely consents to surgery. The patient was offered a surgery/procedure at a [facility] facility. I have counseled the patient regarding the risk of exposure to and/or potential harm posed by the COVID-19 virus with having a surgery/procedure at this time versus the risk of delaying the surgery/procedure. It is not possible to know either the risk of delaying the surgery or procedure or chance of getting an infection with perfect accuracy, but a joint decision was made between the patient and myself to proceed at this time with endoscopy. I plan to use Golytely bowel preparation The patient takes prescription medications which I feel decrease the chance of successful sedation, therefore we will plan for procedure to be done under Monitored [facility]esthetic Care. cardiac clearance requested. -Recent cardiac cath Diagnoses: (Z86.010) History of colonic polyps (primary encounter diagnosis) (Z12.11) Colon cancer screening Consultation requested by Dr. Condon for an opinion regarding screening colonoscopy. My final recommendations will be communicated back to the requesting physician by way of shared Medical record or letter to requesting physician via [place] mail. Iman Kumari PA-C documented in this encounter [facility] 06-11-2022 Miscellaneous Notes Called patient updated to call PCP to review colonoscopy open access questionaires to see if needs a consult or not. Patient voiced understanding. Ginny Lucio LPN Patient called in to the office after getting 5 year recall colonoscopy letter. She previously saw Danika Kaminski and Dr Morris did her procedure. Please advise if patient is needing a consult/order from PCP or if the procedure order can be placed and scheduled. documented in this encounter [facility] 05-28-2022 Miscellaneous Notes Okayed Patient has been identified by name and date of : Yes, Patient phones for refill(s): Requested Prescriptions Pending Prescriptions Disp Refills levothyroxine (SYNTHROID) 25 mcg tablet 90 tablet 3 Sig: Take 1 tablet by mouth once daily. Date of last office visit in primary care: 03/07/2022 Annual: 11/09/2022 Last 2 Encounter Wt Readings: Date: Wt: 03/09/2022 115.7 kg (255 lb) 03/07/2022 115.2 kg (254 lb) Previous labs/tests for medication: Thyroid: TSH Date Value 02/03/2022 1.090 mIU/L 03/06/2021 0.791 uU/mL Please advise. Thank you. Vangie Haas LPN documented in this encounter [facility] 05-28-2022 Miscellaneous Notes PDMP website checked and validated. All prescriptions have been APPROPRIATELY filled. No suspicious activity was identified. 05/28/2022 by Sahara Boateng MD Pt calls to report that the gabapentin rx has start date as 05/30/22. Pt reports she will need 3 tabs to get her to the 8th. Pt is not sure if rx date was counted wrong or what the problem is. Pt reports she either needs early refill date on existing rx or a rx for 3 tabs. Please review and advise. Call pt with provider message. April Courtney LPN documented in this encounter [facility] 05-14-2022 Discharge summary Note Date/Time May 14, 2022 5:16pm [facility] Medical Records Department [address] [place] [address] Emergency Department Summary 05/14/22 MR#: [id number] Acct: [id number] Name: PRISCILLA RAMOS Rep #:[id number] 20 : 1955 67 From: Brody Shannon MD PCP: Dr. Emilee Condon MD Status:RE G ER Location: ED HPI History of Present Illness Chief Complaint: Chest Pain Narrative Narrative: C7-year-old female past medical history of hypothyroidism and depression presents with chest pain that she has had for the last 5 hours. Began around 12or 1230 as she was babysitting her 3-year-old. She describes midsternal chest pressure and heaviness without radiation. No nausea or vomiting, no diaphoresis. She states she has been dealing with heart palpitations with rapidheart rate and her heart skipping a beat along with elevated blood pressure since November of last year, over the last 6 months. She has been keeping track of her blood pressure because [facility] She was told that if she has chest pressure again as she has had in the past, that she needs to come to the emergency department for evaluation. Prior to arrival her blood pressure was in the 160 systolic. She also states that shehas a headache today, but denies any paresthesias, or any other symptoms. No DVT or PE risk factors. [facility] Medical History Arthritis Breast nodule Dysthymic disorder Essential hypertension Fibromyalgia Hypothyroidism Obesity NELI (obstructive sleep apnea) Thyroid nodule Home Medications bupropion HCl 150 mg 24 hr tablet, extended release 150 mg PO DAILY 12/14/14 [History Last Taken Unknown] coenzyme Q10 50 mg chewable tablet 50 mg PO DAILY 12/14/14 [History Last Taken Unknown] colostrum, bovine 500 mg capsule 1,000 mg PO BID 12/14/14 [History Last Taken Unknown] cyanocobalamin (vitamin B-12) 500 mcg sublingual tablet 500 mcg sublingual DAILY12/14/14 [History Last Taken Unknown] fish oil-dha-epa 1,200 mg-144 mg-216 mg capsule 1 ea PO BID 12/14/14 [History Last Taken Unknown] multivitamin with folic acid 400 mcg tablet (Thera) 1 tab PO DAILY 12/14/14 [History Last Taken Unknown] trazodone 50 mg tablet 50 mg PO QHS 12/14/14 [History Last Taken Unknown] levothyroxine 25 mcg tablet 25 mcg PO DAILY 07/21/15 [History Last Taken 08/17/15 07:00] Ca 600 mg-D3 20 mcg-mag oxide 50 xb-Tm-rpruwe-manganese-boron tablet (Calcium 600-D3 Plus (mag-zinc)) 1 tab PO DAILY 05/14/22 [History Last Taken Unknown] amlodipine 10 mg tablet 10 mg PO DAILY #30 tabs 05/14/22 [Rx Last Taken Unknown] biotin 2,500 mcg capsule 2,500 mcg PO DAILY 05/14/22 [History Last Taken Unknown] cholecalciferol (vitamin D3) 25 mcg (1,000 unit) tablet (Vitamin D3) 2,000 unit PO DAILY 05/14/22 [History Last Taken Unknown] colestipol 1 gram tablet 2 g PO DAILY 05/14/22 [History Last Taken Unknown] fluoxetine 40 mg capsule 40 mg PO DAILY 05/14/22 [History Last Taken Unknown] gabapentin 400 mg capsule 800 mg PO QHS 05/14/22 [History Last Taken Unknown] turmeric 900 mg-turmeric root extract 100 mg-black pepper 5 mg capsule 1 cap PO DAILY 05/14/22 [History Last Taken Unknown] Allergy/AdvReac Type Severity Reaction Status Date / Time No Known Allergies Allergy Verified 05/14/22 16:48 Surgical History History of herniorrhaphy History of laparoscopic cholecystectomy Social History Smoking Status: Never smoker alcohol intake: current alcohol intake frequency: 0-2 drinks per day Alcohol type: wine substance use type: does not use ROS ROS ED ROS Narrative Constitutional: No fever, no chills. HEENT: No sore throat. No neck pain. No loss of vision. No rhinorrhea. Cardiovascular: Positive midsternal chest pressure and heaviness/chest pain. Intermittent palpitations. No pedal edema. Respiratory: No cough, intermittent, chronic shortness of breath for months. Abdominal: No abdominal pain. No nausea. No vomiting. Genitourinary: No dysuria. No hematuria. Musculoskeletal: No myalgias. No arthralgias. Neurologic: Positive headaches. No dizziness. No lightheadedness. Skin: No rash. No change in color. Psychiatric: No depression. No anxiety. EXAM Physical Exam Narrative Exam Narrative: Afebrile. Vital signs noted. HEENT: Normocephalic. Atraumatic. PERRL, EOMI. Neck soft and supple. No pointtenderness or step off. Cardiovascular: Regular rate and rhythm. No murmurs, rubs, or gallops appreciated. Respiratory: No tachypnea. Lungs clear to auscultation bilaterally. Gastrointestinal: Abdomen soft, nontender, with normoactive bowel sounds. No rebound or guarding. Neurological: Awake. Alert. Nonfocal, nonlateralizing. Skin: No rash. Normal color. No pallor. Musculoskeletal: No pedal edema. Full range of motion extremities. Const Vital Signs: 05/14/22 16:48 05/14/22 16:52 05/14/22 17:27 Temperature 97.9 F Temperature Source Oral Pulse Rate 92 Respiratory Rate 19 H Respiratory Effort Normal Respiratory Pattern Normal Blood Pressure 185/85 H Blood Pressure Mean 118 Pulse Ox 97 99 Oxygen Delivery Method Room Air Room Air 05/14/22 17:47 05/14/22 20:00 Temperature Temperature Source Pulse Rate 71 72 Respiratory Rate 15 15 Respiratory Effort Respiratory Pattern Blood Pressure 154/87 H 161/88 H Blood Pressure Mean 109 112 Pulse Ox 99 98 Oxygen Delivery Method Room Air Room Air Heart Score History: Slightly/Non-Suspicious ECG: Normal Age: >/= 65 years Risk Factors: 1 or 2 Risk Factors Score: 3 MDM MDM MDM Narrative Medical decision making narrative: Chest pain work-up was pursued. She was administered aspirin. EKG was obtainedand interpreted by myself as normal sinus rhythm at 78 bpm without ectopy or acute ST changes. No STEMI. I reviewed her laboratory work, and she has a normal white count of 7.6, hemoglobin normal at 14.9, platelet count normal at 328. BMP was obtained and she has a glucose appropriately elevated at 90 with anormal anion gap of 8. Sodium and potassium are normal at 139 and 3.9 respectively. Initial high-sensitivity troponin is 7. 2-hour repeat is 9 for adelta less than 7. My interpretation of the CT of her brain shows no evidence of hemorrhage. I reviewed the radiology report and agree that there is no acuteprocess. I interpreted her chest x-ray as no evidence of pneumonia or pneumothorax. I reviewed the radiology report and they report a haziness of unspecified chronicity, but there is no indication for antibiotics that she doesnot have a productive cough, fever, or elevated white count and no pneumonia symptoms. Her blood pressure has fluctuated from 185 systolic down to 161, and also in the 140s. She states she has an appointment with Dr. Gaming on Saturdayfor palpitations and hypertension. I discussed the patient with Dr. Gaming who is on-call with cardiology. He would like the patient started on amlodipine 10 mg orally daily. She was told to continue to keep a log of her blood pressures. I called her in a prescription for this and gave her first dose of amlodipine 10 mg here. Return instructions to the emergency department were reviewed. I feel she can be discharged safely home with follow-up. Return instructions werereviewed. Disposition is discharged home in stable condition. Lab Data Attestation: I reviewed the patient's lab results. Labs: Laboratory Results - last 24 hr 05/14/22 05/14/22 05/14/22 16:55 16:55 19:18 WBC 7.6 RBC 4.79 Hgb 14.9 Hct 45.1 MCV 94.2 MCH 31.1 MCHC 33.0 RDW Std Deviation 44.1 H RDW Coeff of Poly 12.6 Plt Count 328 MPV 9.7 Immature Gran % (Auto) 0.300 Neut % (Auto) 55.9 Lymph % (Auto) 34.5 Wolfe % (Auto) 6.2 Eos % (Auto) 2.6 Baso % (Auto) 0.5 Absolute Neuts (auto) 4.3 Absolute Lymphs (auto) 2.63 Nucleated RBC % 0 Sodium 139 Potassium 3.9 Chloride 107 Carbon Dioxide 24.0 Anion Gap 8 BUN 18 Creatinine 0.77 Estim Creat Clear Calc 48.45 Est GFR (MDRD) Af Amer 96 Est GFR (MDRD) Non-Af 79 BUN/Creatinine Ratio 23.4 H Glucose 90 Calcium 9.4 Troponin I High Sens 7 9 Radiography Diagnostic Testing: Clinical Impression(s) from Imaging Studies Brain CT 05/14/22 17:11 IMPRESSION: No acute intracranial findings. Electronically Signed: Murali Ramos MD at 17:51 EST , Chest X-Ray 05/14/22 17:32 IMPRESSION: Hazy bilateral airspace disease of uncertain chronicity. Findings suspicious for pneumonia. Recommend short-term follow-up to resolution. Electronically Signed: Murali Ramos MD at 17:58 EST , Discharge Plan Triage Chief Complaint: Chest Pain ED Provider: Brody Shannon Dx/Rx/DC Orders Clinical Impression: Essential hypertension, Chest pressure, Palpitations Instructions: ED Chest Pain, Uncertain Cause, ED Hypertension New Begin Treatment, ED Palpitations Prescriptions: New amlodipine 10 mg tablet 10 mg PO DAILY Qty: 30 0RF No Action gabapentin 400 mg capsule 800 mg PO QHS Rx Instructions: Start on 05/30/22 colestipol 1 gram tablet 2 g PO DAILY Label Comments: TAKE 1 TO 2 TABLETS BY MOUTH EVERY DAY as directed. Ca-D3-mag ay-yoqd-nkv-jose-bor [Calcium 600-D3 Plus (mag-zinc)] 600 mg calcium- 20 mcg-50 mg tablet 1 tab PO DAILY turmeric-turmeric ext-pepper 900-100-5 mg capsule 1 cap PO DAILY fluoxetine 40 mg capsule 40 mg PO DAILY biotin 2,500 mcg capsule 2,500 mcg PO DAILY trazodone 50 MG tablet 50 mg PO QHS Label Comments: SLEEP bupropion HCl 150 MG tablet extended release 24 hr 150 mg PO DAILY Label Comments: mood fish oil-dha-epa 1 EACH capsule 1 ea PO BID Label Comments: supplement multivitamin with folic acid [Thera] 1 TABLET tablet 1 tab PO DAILY Label Comments: supplement coenzyme Q10 50 MG tablet,chewable 50 mg PO DAILY Label Comments: supplement colostrum, bovine 500 MG capsule 1,000 mg PO BID Label Comments: supplement cyanocobalamin (vitamin B-12) 500 MCG tablet, sublingual 500 mcg sublingual DAILY Label Comments: supplement cholecalciferol (vitamin D3) [Vitamin D3] 25 mcg (1,000 unit) tablet 2,000 unit PO DAILY Label Comments: supplement levothyroxine 25 MCG tablet 25 mcg PO DAILY Label Comments: thyroid med Primary Care Provider: Emilee Condon Referrals: Francisco Javier Gaming MD [Med Staff - Active Staff] - 2 Days Emilee Condon MD [Primary Care Provider] - Activity Restrictions/Additional Instructions: Take the amlodipine for your blood pressure, and continue to keep a log of your blood pressures for Dr. Gaming. Return with increasing chest pressure, new or worsening symptoms. Follow-up with Dr. Gaming in 2 days as scheduled. Disposition Disposition: Home, Self Care What to do if you have Problems For any increased pain, shortness of breath, bleeding, nausea or vomiting, chestpain, or any unexpected problems, contact your Primary Care Provider. Call [facility] ([phone]) or report to the closest Emergency Room. Call 911 if necessary. 05/14/222123 <Electronically signed by Brody Shannon MD> Cosigner Signature (if applicable): CC: Francisco Javier Gaming MD; Dr. Emilee Condon MD ~ Signed [facility] Work Phone: [phone] 497-888201-06-2023 Miscellaneous Notes* Telephone Encounter - Roxana Mariano LPN - 04/27/2022 4:38 PM EST Patient scheduled 05/24/22 * Telephone Encounter - Roxana Mariano LPN - 03/14/2022 9:09 AM EST Please help patient scheduled appointment with endocrinology. Your request has been processed and a referral has been sent for Larry Darnell. documented [facility] History of Present illness Narrative* Rosina Perez RT(R) - 04/11/2022 3:30 PM EST Radiology Service Progress Note PATIENT NAME: Priscilla Ramos DATE OF SERVICE: April 11, 2022 TIME: 3:38 PM PATIENT IDENTITY VERIFICATION COMPLETED USING TWO (2) IDENTIFIERS: Name and Date of confirmedby patient verbally. FALL SCREENING: Has the patient had 2 falls in the last year or 1 fall with injury or currently using an Ambulatory Assistive Device (Walker, Cane, Wheelchair, Crutches, etc.)? No PATIENT GENDER DATA: Female. status: : No status: NO. PATIENT RELEVANT IMPLANT DATA REVIEWED: Not Applicable RADIOLOGY DEPARTMENT: Mammography PERIPHERAL IV DATA: Not applicable SIGNED BY: RT Libia(R) April 11, 2022 3:38 PM documented in this encounterSt. [facility]12[facility] History of Present illness Narrative* Faye Preciado, PT - 03/30/2022 2:33 PM EST Episode Visit Count: 5 Therapist That Will Accept/Oversee The Plan Of Care: Faye Preciado Start of Care Date: 02/16/22 Onset Date: 08/17/21 Plan of Care Certification Date: 02/16/22 Next Certification Due Date: 03/23/22 REHABILITATION AND SPORTS THERAPY PHYSICAL THERAPY DISCONTINUANCE OF CARE PLAN OF CARE UPDATE: Assessment: Priscilla Ramos is discontinued from Physical Therapy services due to goal achievement.. Patient was seen for 5 visits from Start of Care Date: 02/16/22 to 03/30/2022 and treatment included: Therapeutic exercise and Self-correction management. Goals for Episode of Care: created on 02/16/22 through 03/30/22 Goals updated on 03/30/2022. [place] in home exercise program. -- MET Patient will increase active ROM of B shoulder elevation to 150-180 degrees without increased symptoms to allow pt to better tolerate reaching forward and overhead activities. -- MET Perform lifting and carrying every day objects #0-10 pounds with decreased report of symptoms/pain in 6 weeks. -- MET Perform pushing and pulling movements during ADLs without pain. -- MET Improve flexibility of B upper trapezius and levator scapulae for improved cervical/scapular AROM with less pain during cervical and shoulder AROM. -- MET Improve postural awareness. -- MET Patient Goals: improve shoulder strength/endurance with reaching and over head UE movement ADLs. Reduce B shoulder pain -- MET SUBJECTIVE: Patient Reason for Visit: Pt. arrived 15 min early for appointment and it started at that time. Pt. reports that shes doing well and thinks she may be able to hold therapy visits and complete HEP on her own.. Pain: Pain Pain Level: 2 Pain Location: Shoulder - Left;Shoulder - Right;Neck - Right;Neck - Left Description: Aching Post Treatment Pain Post Treatment Pain Level: Better Post Treatment Pain Location: Shoulder - Left;Shoulder - Right;Neck - Right;Neck - Left PROMIS Scales Higher is Better 03/01/2022 03/01/2022 03/23/2022 Phys Func - Score - - 40 (mild dysfunction) Phys Func - Percentile - - 16 % Social Roles - Score - - - Social Role - Percentile - - - GH Physical - Score - 37.4 (Fair) - GH Physical - Percentile 10 % 10 % - GH Mental - Score - 36.3 (Fair) - GH Mental - Percentile 9 % 9 % - Self-Eff Symptom - Score - - 41 (Average) Self-Eff Symptom - Percentile - - 18 % T-scores: mean of general population = 50. 5 points is clinically meaningfully difference Percentiles provide an indication of how the patient's score ranks in relation to the general population. Higher percentile rankings indicate better function/quality of life. 50th percentile is the average of the general population and indicates half of respondents had a worse score. Lower is Better 02/07/2021 09/28/2021 01/23/2022 Fatigue - Score 64 (moderate) 64 (moderate) 62 (moderate) Fatigue - Percentile 8 % 8 % 12 % T-scores: mean of general population = 50. 5 points is clinically meaningfully difference Percentiles provide an indication of how the patient's score ranks in relation to the general population. Higher percentile rankings indicate better function/quality of life. 50th percentile is the average of the general population and indicates half of respondents had a worse score. OBJECTIVE MEASURES WITH LEVEL OF FUNCTION: Cervical Spine ROM Cervical Protrusion AROM: Normal Cervical Retraction AROM: Normal Cervical Flexion AROM: Normal Cervical Extension AROM: Normal Cervical Side-Bend Right AROM: Normal Cervical Side-Bend Left AROM: Normal Cervical Rotation Right AROM: Normal Cervical Rotation Left AROM: Normal UE AROM R Shoulder Flex: 180 Degrees R Shoulder ABduction: 180 Degrees L Shoulder Flex: 180 Degrees L Shoulder ABduction: 180 Degrees TREATMENT: Therapeutic Exercise: 1: cervical AROM flexion, extension,protraction, retraction, SB R and L, rotation R and L 1x each 2: cervical retraction 1x10 3: B scapualar retraction 1x10 4: standing OTB B mid rows 3x12 (optional) 5: wand AAROM ER 1x10 each side -- more tightness on the R as compared to the L (at 0 abd) 6: wand B shoulder extension AAROM 1x10 7: standing OTB B shoulder extension 3x12 (optional) 8: wand AAROM ER 1x10 with 5 sec hold R side 9: wand B IR AAROM 2x10 - 1st set shoulder width apart, 2nd set hands closer together on wand 10: UT stretch 3x30 sec each side 11: scapular isometrics with ball on wall each shoulder 2x10 sec hold flexion, extension, IR, ER, abd, add Skilled Intervention: Patient was educated in proper exercise technique and purpose for exercises. Reviewed and educated patient on additions/changes for home exercise program as above (*). Skilled judgment was provided in selection of appropriate interventions. Correct performance of therapeutic exercises was facilitated with verbal and visual cuing. Additional time necessary for assessing progress toward goals due to discharge today. Educated patient on rationale for performing exercises in regards to decreasing fatigue , increase ease of ADL, and ROM and function . Patient education as noted. Billing Therapeutic Exercise Treatment Minutes: 40 Total Treatment Time Minutes (timed/untimed): 40 Faye Preciado PT documented in this encounterSt. [facility]12[facility] History of Present illness Narrative* Faye Preciado PT - 03/23/2022 2:45 PM EST Episode Visit Count: 4 Therapist That Will Accept/Oversee The Plan Of Care: Faye Preciado Start of Care Date: 02/16/22 Onset Date: 08/17/21 Plan of Care Certification Date: 02/16/22 Next Certification Due Date: 03/23/22 REHABILITATION AND SPORTS THERAPY PHYSICAL THERAPY TREATMENT NOTE ASSESSMENT: Priscilla Ramos tolerated the session with decreased symptoms. She demonstrated improvements in activity tolerance. The patient will continue to benefit from ongoing skilled physical therapy to progress toward set goals. PLAN FOR NEXT VISIT: PN and possible dc or hold chart SUBJECTIVE: Patient Reason for Visit: Reports the pain is not bad today. Lately she has been cleaning rugs and this has caused some B arm soreness. Pain: Pain Pain Location: Shoulder - Left;Shoulder - Right;Neck - Right;Neck - Left Description: Aching Post Treatment Pain Post Treatment Pain Level: 0 Post Treatment Pain Location: Shoulder - Left;Shoulder - Right;Neck - Right;Neck - Left Post Treatment Symptoms: pt. asks if she will need to continue the entire PT POC OBJECTIVE MEASURES WITH LEVEL OF FUNCTION: TREATMENT: Therapeutic Exercise: 1: seated cervical retraction 2x10 (seated against wall) 2: seated scapular retraction 2x15 3: seated UT stretch 3x30 sec each side with reaching down to the side with UE 4: *standing OTB B mid rows 3x12 (optional) 5: wand AAROM ER 2x10 each side (at 0 a bd) 6: wand B extension AAROM 2x10 7: *standing OTB B shoulder extension 3x12 (optional) 8: wand B IR AAROM 2x10 (I really feel this one.) 9: seated wand B ER isometric 5x10 (0 B shoulder abd and elbows flexed 90 degrees) 10: seated wand B IR isometric 5x10 (0 B shoulder abd and elbows flexed 90 degrees) 11: *OTB issued for optional strengthening exercises Skilled Intervention: Patient was educated in proper exercise technique and purpose for exercises. Reviewed and educated patient on additions/changes for home exercise program as above (*). Skilled judgment was provided in selection of appropriate interventions. Provided written instruction for home exercise program to facilitate proper performance and compliance. Correct performance of therapeutic exercises was facilitated with verbal, visual, and tactile cuing. Educated patient on rationale for performing exercises in regards to decreasing fatigue , increase ease of ADL, and ROM and function . Patient education as noted. Billing Therapeutic Exercise Treatment Minutes: 40 Total Treatment Time Minutes (timed/untimed): 40 Faye Preciado PT documented in this encounterSt[facility]11[facility] History of Present illness Narrative* Bri Moreno MD - 03/09/2022 1:29 PM EST Roastmaster offered: Patient declines. Priscilla is a 67 year old female presenting for a right breast lump. Pt had a CT scan completed through her primary care for dyspnea on exertion on 02/23/2022 when a 1.7cm right breast nodule and 1cm thyroid nodule was found. Pt reports she made an appointment here after receiving these results and scheduled a diagnostic mammogram for 04/11/22. Has a history of one abnormal mammogram and had a biopsy completed on her right breast which came back negative. Denies any Family history of breast cancer. Denies any nipple discharge, changes in the skin of her breast, lumps or nipple inversion. Pt offers no other concerns today. OB History T2 L2 SAB0 IAB0 Ectopic0 Multiple0 Live Births0 Career Resource Specialist History LMP: Hysterectomy Age at Menarche: Age at First : Age at Menopause: Career Resource Specialist History Comments: Sexual Activity: Not Currently; No partner data on record; Pt has had a hysterectomy Contraception: Surgical PAST MEDICAL HISTORY Diagnosis Date Abnormal mammogram, unspecified 06/27/2006 Acquired hypothyroidism 07/04/2017 Calculus of gallbladder with chronic cholecystitis without obstruction 08/01/2015 Corns and callosities 01/24/2014 Diarrhea Dysphagia 05/27/2015 feeling like food sits in bottom of esophagus if eats heavier than usual meal Dysthymic disorder Depression (non-psychotic) Elevated antinuclear antibody (KELTON) level 08/25/2014 Internal hemorrhoids without mention of complication Myalgia and myositis, unspecified FIBROMYALGIA Obesity, unspecified Obesity Obstructive sleep apnea DME [place] PAIN LEG (Right) 02/20/2005 Temporomandibular joint disorders, unspecified 11/23/2006 PAST SURGICAL HISTORY Procedure Laterality Date ARTHRP KNE CONDYLE&PLATU MEDIAL&LAT COMPARTMENTS 09/2011 right DELIVERY ONLY , low cervical DELIVERY ONLY , low cervical COLONOSCOPY FLX DX W/COLLJ SPEC WHEN PFRMD 07/29/2017 Colonoscopy COLONOSCOPY W/BIOPSY SINGLE/MULTIPLE 02/10/07 LAPS SURG CHOLECYSTECTOMY W/CHOLANGIOGRAPHY 08-17-15 PAST SURGICAL HISTORY OF foot-left STEREOTACTIC CORE BIOPSY 07/04/06 UOQ RIGHT AVANI W/WO REMOVAL TUBE OVARY 2000 Hysterectomy, AVANI ovaries remain FAMILY HISTORY Problem Relation Age of Onset Diabetes Mother late in life at 75 Stroke Mother x3 Cancer Father myeloma (from immunesuppressants) at age 80 of chf and perf. bowel other (ESRD) Father had sudden renal failure; had kidney transplant at 68yo Thyroid Brother Hypertension Son No Known Problems Son Social History Tobacco Use Smoking status: Never Smokeless tobacco: Never Vaping Use Vaping Use: Never used Substance Use Topics Alcohol use: Yes Alcohol/week: 18.0 standard drinks Types: 18 Glasses of wine per week Comment: wine with supper Drug use: No Current Outpatient Medications Medication Sig [START ON 05/30/2022] gabapentin (NEURONTIN) 400 mg capsule Take 2 capsule 60-90 minutes before bedtime. Do not start before May 30, 2022. ubidecarenone Q-10 (COENZYME Q-10) 10 mg cap Take 50 mg by mouth once daily. CPAP Increase PAP setting to 17/13 cmH2O. levothyroxine (SYNTHROID) 25 mcg tablet Take 1 tablet by mouth once daily. OTC NUTRITIONAL SUPPLEMENT Take 2 capsules by mouth twice daily. Fibro Care Qqpwl-6-FMS-EPA-Fish Oil 300-1,000 mg cap Take 1,000 mg by mouth twice daily. hyperimmune colostrum, bovine 200 mg tab Take 2 tablets by mouth twice daily. colestipol (COLESTID) 1 gram tablet Take 1-2 tablets by mouth once daily. As directed Ca/D3/mag ox/zinc/commercial helicopter pilot/jose/bor (CALCIUM 600-D3 PLUS, MAG-ZINC, ORAL) turmeric/turmeric ext/pepr ext (TURMERIC-TURMERIC EXT-PEPPER) 900-100-5 mg cap CPAP Bipap 17/13 cm H2O, Heat Humidity, suitable mask, [employer] supplies, opt Chinstrap, G47.33. cholecalciferol (VITAMIN D3) 2,000 unit tablet Take 2,000 Units by mouth once daily. FLUoxetine HCl (PROZAC) 40 mg capsule Take 1 capsule by mouth once daily. (Dr. Garcia) traZODone (DESYREL) 50 mg tablet Take 1 tablet by mouth daily at bedtime. CYANOCOBALAMIN, VITAMIN B-12, (VITAMIN B-12 ORAL) Take by mouth. buPROPion XL (WELLBUTRIN XL) 150 mg 24 hr tablet Take one(1) tablet daily. Biotin (NAIL-EX) 2,500 mcg ORAL Tab Take one(1) tablet daily. DAILY VITAMIN TAB Take one(1) tablet daily. Current Facility-Administered Medications Medication Dose Route Frequency perflutren lipid microspheres 1.3 mL in NaCl (PF) 0.9% 10 mL injection (DEFINITY) INTRAVENOUS DIRECTED PRN sodium chloride 0.9 % (flush) 10 mL (BD POSIFLUSH) 10 mL INTRAVENOUS DIRECTED PRN perflutren lipid microspheres 1.3 mL in NaCl (PF) 0.9% 10 mL injection (DEFINITY) INTRAVENOUS DIRECTED PRN sodium chloride 0.9 % (flush) 10 mL (BD POSIFLUSH) 10 mL INTRAVENOUS DIRECTED PRN Allergies As of Date: 03/09/2022 (No Known Allergies) Fully Assessed 03/09/2022 REVIEW OF SYSTEMS Abdomen: no pain. No weight loss. Breast: see hpi . Expanded ROS: GENERAL: Negative for fever Allergies and current medication updated:Yes EXAM: BP 148/86 Wt 255 lb (115.7kg) GENERAL: pleasant, female in no apparent distress HEENT: Normocephalic, atraumatic, mucus membranes moist, and no lesions NECK: Supple and full range of motion DERMATOLOGY: without lesions BREAST: soft, non-tender, symmetric, no dominant mass, normal nipple-areolar complex, no lymphadenopathy, no nipple discharge, and no supraclavicular nodes. Pt was examined sitting and supine. ABDOMEN: soft, non-tender, and no masses NEURO: alert and oriented x3,exam grossly non-focal EXTREMITIES: normal ASSESSMENT AND PLAN: Encounter Diagnosis ICD-10-CM 1. Mass of right breast, unspecified quadrant N63.10 2. Patient is already scheduled for diagnostic mammogram and right breast ultrasound. Today on examno concerning findings however this does need followed up. Would consider if breast imaging is negative consider follow-up with general surgery for further evaluation or breast MRI if indicated. I spent a total of 20 minutes on the date of the service which included preparing to see the patient, [id number] patient care, completing clinical documentation, obtaining and/or reviewing separately obtained history, performing a medically appropriate examination, and counseling and educating the patient/family/caregiver Medical Decision Making: Medical Decision Making Level: 1 - N/A Bri Marshall MD documented in this encounterSt. [facility]11-[facility]22 History of Present illness Narrative* Faye House, [facility] - 03/08/2022 3:15 PM EST Radiology Service Progress Note PATIENT NAME: Priscilla Ramos DATE OF SERVICE: March 08, 2022 TIME: 3:40 PM PATIENT IDENTITY VERIFICATION COMPLETED USING TWO (2) IDENTIFIERS: Name and Date of confirmedby patient verbally. FALL SCREENING: Has the patient had 2 falls in the last year or 1 fall with injury or currently using an Ambulatory Assistive Device (Walker, Cane, Wheelchair, Crutches, etc.)? No PATIENT GENDER DATA: Female. status: : No status: NO. PATIENT RELEVANT IMPLANT DATA REVIEWED: Not Applicable RADIOLOGY DEPARTMENT: Ultrasound PERIPHERAL IV DATA: Not applicable SIGNED BY: Faye House RDMS RVT March 08, 2022 3:40 PM documented in this encounterSt. [facility]11-16-2022 History of Present illness Narrative* Emilee Condon MD - 03/07/2022 4:35 PM EST This note was created using [employer]. Subjective Priscilla Ramos is a 67 year old female. Patient presents with: F/U 6 months SUBJECTIVE: Priscilla Ramos is a 67 year old year old lady here today for 6 month follow up appointment for review of medical conditions. Still really SOB with minimal exertion. Agrees with seeing corrugator operator. Discussed concerns about diastolic dysfunction--had print out from [facility] website. Reviewed need to cut back on alcohol and lose weight. Has started to lose weight from peak 257 pounds in November to 254 pounds today. Cuff validated today--accurate. Noted that BP usually fine at home and was fine at most recent appointment in [facility] system. List of questions reviewed--related to results of studies. See Assessment and plan. PAST MEDICAL HISTORY Diagnosis Date Abnormal mammogram, unspecified 06/27/2006 Acquired hypothyroidism 07/04/2017 Calculus of gallbladder with chronic cholecystitis without obstruction 08/01/2015 Corns and callosities 01/24/2014 Diarrhea Dysphagia 05/27/2015 feeling like food sits in bottom of esophagus if eats heavier than usual meal Dysthymic disorder Depression (non-psychotic) Elevated antinuclear antibody (KELTON) level 08/25/2014 Internal hemorrhoids without mention of complication Myalgia and myositis, unspecified FIBROMYALGIA Obesity, unspecified Obesity Obstructive sleep apnea DME [employer] [place] PAIN LEG (Right) 02/20/2005 Temporomandibular joint disorders, unspecified 11/23/2006 Current Outpatient Medications Medication Sig [START ON 05/30/2022] gabapentin (NEURONTIN) 400 mg capsule Take 2 capsule 60-90 minutes before bedtime. Do not start before May 30, 2022. ubidecarenone Q-10 (COENZYME Q-10) 10 mg cap Take 50 mg by mouth once daily. CPAP Increase PAP setting to 17/13 cmH2O. levothyroxine (SYNTHROID) 25 mcg tablet Take 1 tablet by mouth once daily. OTC NUTRITIONAL SUPPLEMENT Take 2 capsules by mouth twice daily. Fibro Care Zqawz-5-DTV-EPA-Fish Oil 300-1,000 mg cap Take 1,000 mg by mouth twice daily. hyperimmune colostrum, bovine 200 mg tab Take 2 tablets by mouth twice daily. colestipol (COLESTID) 1 gram tablet Take 1-2 tablets by mouth once daily. As directed Ca/D3/mag ox/zinc/commercial helicopter pilot/jose/bor (CALCIUM 600-D3 PLUS, MAG-ZINC, ORAL) turmeric/turmeric ext/pepr ext (TURMERIC-TURMERIC EXT-PEPPER) 900-100-5 mg cap CPAP Bipap 17/13 cm H2O, Heat Humidity, suitable mask, Lif[employer] supplies, opt Chinstrap, G47.33. cholecalciferol (VITAMIN D3) 2,000 unit tablet Take 2,000 Units by mouth once daily. FLUoxetine HCl (PROZAC) 40 mg capsule Take 1 capsule by mouth once daily. (Dr. Garcia) traZODone (DESYREL) 50 mg tablet Take 1 tablet by mouth daily at bedtime. CYANOCOBALAMIN, VITAMIN B-12, (VITAMIN B-12 ORAL) Take by mouth. buPROPion XL (WELLBUTRIN XL) 150 mg 24 hr tablet Take one(1) tablet daily. Biotin (NAIL-EX) 2,500 mcg ORAL Tab Take one(1) tablet daily. DAILY VITAMIN TAB Take one(1) tablet daily. Current Facility-Administered Medications Medication Dose Route Frequency perflutren lipid microspheres 1.3 mL in NaCl (PF) 0.9% 10 mL injection (DEFINITY) INTRAVENOUS DIRECTED PRN sodium chloride 0.9 % (flush) 10 mL (BD POSIFLUSH) 10 mL INTRAVENOUS DIRECTED PRN perflutren lipid microspheres 1.3 mL in NaCl (PF) 0.9% 10 mL injection (DEFINITY) INTRAVENOUS DIRECTED PRN sodium chloride 0.9 % (flush) 10 mL (BD POSIFLUSH) 10 mL INTRAVENOUS DIRECTED PRN Social History Tobacco Use Smoking status: Never Smokeless tobacco: Never Vaping Use Vaping Use: Never used Substance Use Topics Alcohol use: Yes Alcohol/week: 18.0 standard drinks Types: 18 Glasses of wine per week Comment: wine with supper Drug use: No Review of Systems Objective BP 152/86 Pulse 73 Wt 115.2 kg (254 lb) SpO2 96% BMI 42.27 kg/m Last 5 Encounter Wt Readings: Date: Wt: 03/07/2022 115.2 kg (254 lb) 03/02/2022 115.7 kg (255 lb) 02/05/2022 116.6 kg (257 lb) 12/10/2021 116.7 kg (257 lb 3.2 oz) 09/29/2021 113.4 kg (250 lb) No waist measurement recorded Estimated body mass index is 42.27 kg/m as calculated from the following: Height as of 09/29/21: 165.1 cm (5' 5). Weight as of this encounter: 115.2 kg (254 lb). Last 5 Encounter BP Readings: Date: BP: 03/07/2022 152/86 03/02/2022 128/68 02/05/2022 138/82 12/10/2021 138/80 09/29/2021 131/84 Last 5 Encounter Pulse Readings: Date: Pulse: 03/07/2022 73 03/02/2022 70 02/05/2022 109 12/10/2021 86 09/29/2021 94 Physical Exam Constitutional: Appearance: Normal appearance. HENT: Head: Normocephalic. Eyes: Conjunctiva/sclera: Conjunctivae normal. Cardiovascular: Rate and Rhythm: Normal rate and regular rhythm. Heart sounds: Normal heart sounds. Pulmonary: Effort: Pulmonary effort is normal. Breath sounds: Normal breath sounds. Musculoskeletal: Right lower leg: Edema present. Left lower leg: Edema present. Skin: General: Skin is warm and dry. Neurological: General: No focal deficit present. Mental Status: She is alert and oriented to person, place, and time. Psychiatric: Mood and Affect: Mood normal. Behavior: Behavior normal. Thought Content: Thought content normal. Judgment: Judgment normal. Component Latest Ref Rng & Units 09/09/2021 02/03/2022 02/05/2022 Protein, Total 6.3 - 8.0 g/dL 6.4 6.8 Albumin 3.9 - 4.9 g/dL 4.1 4.1 Calcium 8.5 - 10.2 mg/dL 9.7 9.6 Bilirubin, Total 0.2 - 1.3 mg/dL 0.4 0.4 Alkaline Phosphatase 34 - 123 U/L 70 80 AST 13 - 35 U/L 23 25 ALT 7 - 38 U/L 25 24 Glucose 74 - 99 mg/dL 102 (H) 98 BUN 7 - 21 mg/dL 23 (H) 14 Creatinine 0.58 - 0.96 mg/dL 0.70 0.70 Sodium 136 - 144 mmol/L 141 140 Potassium 3.7 - 5.1 mmol/L 4.5 4.4 Chloride 97 - 105 mmol/L 105 104 CO2 22 - 30 mmol/L 26 26 Anion Gap 9 - 18 mmol/L 10 10 eGFR >=60 mL/min/1.73m 95 94 WBC 3.70 - 11.00 k/uL 4.66 4.84 RBC 3.90 - 5.20 m/uL 4.52 4.55 Hemoglobin 11.5 - 15.5 g/dL 13.8 14.0 Hematocrit 36.0 - 46.0 % 43.4 43.8 MCV 80.0 - 100.0 fL 96.0 96.3 MCH 26.0 - 34.0 pg 30.5 30.8 MCHC 30.5 - 36.0 g/dL 31.8 32.0 RDW-CV 11.5 - 15.0 % 13.0 13.3 Platelet Count 150 - 400 k/uL 266 284 MPV 9.0 - 12.7 fL 10.1 10.1 Absolute nRBC <0.01 k/uL <0.01 <0.01 Cholesterol, Total <200 mg/dL 193 Triglyceride <150 mg/dL 85 HDL Cholesterol >39 mg/dL 67 Non HDL Cholesterol <130 mg/dL 126 Fasting Time hrs 12 VLDL Cholesterol <30 mg/dL 17 TC:HDL Ratio <5.10 2.88 LDL Cholesterol <100 mg/dL 109 (H) LDL:HDL Ratio <2.54 1.63 Hemoglobin A1C 4.3 - 5.6 % 5.4 Estimated Average Glucose mg/dL 108 d Dimer <500 ng/mL FEU 420 D Dimer Age-related Cutoff ng/mL FEU 680 TSH 0.270 - 4.200 mIU/L 0.754 1.090 Free T4 0.9 - 1.7 ng/dL 1.2 1.3 Free T3 2.3 - 4.1 pg/mL 3.0 3.2 Magnesium 1.7 - 2.3 mg/dL 2.[address] scan reports. Assessment and Plan ASSESSMENT/PLAN: 1. Diastolic dysfunction without heart failure - ICD9: 429.9, ICD10: I51.89 (primary diagnosis) Patient had looked up complications of this. Reviewed needs for weight loss and cut back on alcohol consumption. Agree with referral to further evaluation. - CONSULT TO CARDIOLOGY--requests to see Dr. Gaming at [facility] to keep her care in [place]. Will fax results of echo and CT scan 2. GARCIA (dyspnea on exertion) - ICD9: 786.09, ICD10: R06.[address] and echocardiogram results. Noted pericardial fat pad on echo. - CONSULT TO CARDIOLOGY 3. Intermittent palpitations - ICD9: 785.1, ICD10: R00.2 Further evaluation and treatment as indicated. - CONSULT TO CARDIOLOGY 4. Osteopenia of multiple sites - ICD9: 733.90, ICD10: M85.89 - Reviewed the need for Calcium and Vitamin D supplements and weight bearing exercise as tolerated - Recheck in 2 years. Consider meds for prevention of osteoporosis as indicated. 5. Elevated BP without diagnosis of hypertension - ICD9: 796.2, ICD10: R03.0 - Recommended regular aerobic exercise. - Recommend home blood pressure monitoring, to bring results in on next visit - Encouraged avoidance of excessive alcohol intake - Discussed need and benefit for weight loss. - Goal of BP <130/80 - Note that BP usually within normal limits but with anxiety about results of studies, BP up today. 6. Morbid obesity--Needs to keep working on diet and exercise with lifestyle changes for effective weight loss as well as prevention of DM, and control of BP and lipids. Further evaluation and treatment as indicated. Consider options including brewing technician and meds. Cardiac work up first. 7. Thyroid nodule--test already ordered. Further evaluation and treatment as indicated. 8. Breast nodule--diagnostic studies ordered already. Emilee Condon MD documented in this encounterSt. [facility]11-[facility]22 Miscellaneous Notes* Telephone Encounter - Sarina Reeves APRN.CNP - 03/02/2022 3:32 PM EST I updated these orders, I'm not sure where she is getting testing done but can we please send the new orders? Thank you! Sarina Reeves APRN.WEIGHT TRAINING INSTRUCTOR * Telephone Encounter - Shama Ward - 03/02/2022 12:55 PM EST Thyroid ultrasound order needs different diagnosis to reflect nodule. Screening mammography order will need changed to [facility] with rt breast ultrasound order placed with nodule found on ct scan. documented in this encounterSt. [facility]11-11-2022 History of Present illness Narrative* Faye Preciado, PT - 03/02/2022 2:38 PM EST Episode Visit Count: 3 Therapist That Will Accept/Oversee The Plan Of Care: Faye Preciado Start of Care Date: 02/16/22 Onset Date: 08/17/21 Plan of Care Certification Date: 02/16/22 Next Certification Due Date: 03/23/22 REHABILITATION AND SPORTS THERAPY PHYSICAL THERAPY TREATMENT NOTE ASSESSMENT: Priscilla Hoffmanon tolerated the session with fatigue and expected muscle soreness. Shedemonstrated improvements in activity tolerance. The patient will continue to benefit from ongoing skilled physical therapy to progress toward set goals. PLAN FOR NEXT VISIT: Continue scapular isometrics and progress ROMEO with wanalla. SUBJECTIVE: Patient Reason for Visit: PtSheron granados leaves yesterday without difficulty. She has soreness today. She was not able to get the isometric strengthening done often but was able to complete the other exercises.She had a CT and has not yet had further imaging that is to be scheduled based on f indings. Pain: Pain Pain Level: 4 Pain Location: Shoulder - Left;Shoulder - Right;Neck - Right;Neck - Left Description: Aching OBJECTIVE MEASURES WITH LEVEL OF FUNCTION: TREATMENT: Therapeutic Exercise: 1: seated cervical retraction 2x10 2: seated scapular retraction 2x15 3: seated UT stretch 3x30 sec each side with reaching down to the side with UE 4: scapular isometrics into wall L shoulder flexion, extension, add, abd, IR, and ER into towel into wall 5x10 sec hold each side 5: *wand AAROM ER 2x10 each side (more stretch felt on the L> R) 6: *wand B extension AAROM 2x10 7: *both R and L shoulder isometrics for HEP 8: *wand B IR AAROM 1x10 (I really feel this one.) Skilled Intervention: Patient was educated in proper exercise technique and purpose for exercises. Reviewed and educated patient on additions/changes for home exercise program as above (*). Provided written instruction for home exercise program to facilitate proper performance and compliance. Correct performance of therapeutic exercises was facilitated with verbal, visual, and tactile cuing. Educated patient on rationale for performing exercises in regards to decreasing fatigue , increase ease of ADL, and ROM and function . Patient education as noted. Billing Therapeutic Exercise Treatment Minutes: 40 Total Treatment Time Minutes (timed/untimed): 40 Faye Preciado PT documented in this encounterSt. [facility] Hospital11-11-2022 Miscellaneous Notes* Telephone Encounter - Roxana Mariano LPN - 03/02/2022 12:49 PM EST PATIENT NOTIFIED OF SAME. Call transferred to PSS to scheduled appointments. * Telephone Encounter - Kasie Limon APRN.CNS - 03/02/2022 12:15 PM EST Seen by PCP 01/2022. Orders filed, please schedule * Telephone Encounter - Renata West RN - 03/02/2022 10:44 AM EST Patient calls and asking about the status of message below: Please review and advise, Renata West RN * Telephone Encounter - Emily Blanco RN - 02/27/2022 9:52 AM EST Patient calls to request orders be placed for yearly mammogram, consult to gynecology (Dr. Moreno), and thyroid US study based on CT scan results. Pended per patient request. Schedulers: Please call patient at [phone] to schedule. Emily Blanco RN documented in this encounterSt. [facility]11-09-2022 History of Present illness Narrative* Darian Heart RT(R) - 02/28/2022 1:30 PM EST Radiology Service Progress Note PATIENT NAME: Priscilla Ramos DATE OF SERVICE: February 28, 2022 TIME: 1:36 PM PATIENT IDENTITY VERIFICATION COMPLETED USING TWO (2) IDENTIFIERS: Name and Date of confirmedby patient verbally. FALL SCREENING: Has the patient had 2 falls in the last year or 1 fall with injury or currently using an Ambulatory Assistive Device (Walker, Cane, Wheelchair, Crutches, etc.)? No PATIENT GENDER DATA: Female. status: : No status: NO. PATIENT RELEVANT IMPLANT DATA REVIEWED: Not Applicable RADIOLOGY DEPARTMENT: Bone Density PERIPHERAL IV DATA: Not applicable SIGNED BY: RT Jamin(R) February 28, 2022 1:36 PM documented in this encounterSt. [facility] Hospital11-09-2022 Miscellaneous Notes* Telephone Encounter - Sahara Boateng Jr., MD - 02/28/2022 9:21 AM EST PDMP website checked and validated. All prescriptions have been APPROPRIATELY filled. No suspiciousactivity was identified. 02/28/2022 by Sahara Boateng MD Rx filled but for further Rx needs to follow up in 02/2022. Sahara Boateng MD * Telephone Encounter - BOBO Capone - 02/27/2022 1:01 PM EST Patient has been identified by name and date of : Yes Patient phones for refill(s): Requested Prescriptions Pending Prescriptions Disp Refills gabapentin (NEURONTIN) 400 mg capsule 180 capsule 1 Sig: Take 2 capsule 60-90 minutes before bedtime. Date of last office visit in primary care: [place] 08/28/21 Appointment 03/02/22 Last 2 Encounter Wt Readings: Date: Wt: 02/05/2022 116.6 kg (257 lb) 12/10/2021 116.7 kg (257 lb 3.2 oz) Please advise. Thank you. BOBO Capone documented in this encounterSt. [facility] Hospital11-04-2022 History of Present illness Narrative* Anjali Hearn RT(R) - 02/23/2022 3:00 PM EDT Radiology Service Progress Note PATIENT NAME: Priscilla Ramos DATE OF SERVICE: February 23, 2022 TIME: 3:31 PM PATIENT IDENTITY VERIFICATION COMPLETED USING TWO (2) IDENTIFIERS: Name and Date of confirmedby patient verbally. FALL SCREENING: Has the patient had 2 falls in the last year or 1 fall with injury or currently using an Ambulatory Assistive Device (Walker, Cane, Wheelchair, Crutches, etc.)? No PATIENT GENDER DATA: Female. status: : No status: NO. PATIENT RELEVANT IMPLANT DATA REVIEWED: Not Applicable RADIOLOGY DEPARTMENT: CT; Exam(s) Completed: Chest PERIPHERAL IV DATA: Not applicable SIGNED BY: RT Shazia(R) February 23, 2022 3:31 PM documented in this encounterSt. [facility] Hospital11-04-2022 Miscellaneous Notes* Result Encounter Note - Sarina Reeves APRN.CNP - 02/23/2022 3:00 PM EDT Pt aware of results, further testing has been ordered. documented in this encounterSt. [facility] Hospital11-02-2022 History of Present illness Narrative* Faye Preciado, PT - 02/21/2022 5:05 PM EDT Episode Visit Count: 2 Therapist That Will Accept/Oversee The Plan Of Care: Faye Preciado Start of Care Date: 02/16/22 Onset Date: 08/17/21 Plan of Care Certification Date: 02/16/22 Next Certification Due Date: 03/23/22 REHABILITATION AND SPORTS THERAPY PHYSICAL THERAPY TREATMENT NOTE ASSESSMENT: Priscilla Ramos tolerated the session with reports of no change with symptoms duringand after each exercise. Required cues to correct technique with cervical retraction but demonstrates correct technique with seated B scapular retraction and upper trapezius stretching. She has difficulty answering if L shoulder symptoms are better, worse, or the same simply stating well it hurts consistently with each movement suggesting that movement doesn't affect shoulder symptoms. She has nodifficulty with L shoulder isometrics into wall with the exception of cues for technique. The patient will continue to benefit from ongoing skilled physical therapy to progress toward set goals. PLAN FOR NEXT VISIT: Add L shoulder isometrics into wall if pt. reports reduced L shoulder pain as a result of these exercises added to the left side for HEP. SUBJECTIVE: Patient Reason for Visit: She has been doing HEP 1x/day. She is not sure if she is completing the exercises correclty. No change in symptoms. Pain: Pain Pain Level: 6 Pain Location: Shoulder - Left;Shoulder - Right;Neck - Right;Neck - Left Description: Aching Post Treatment Pain Post Treatment Pain Level: 4 Post Treatment Pain Location: Shoulder - Left;Shoulder - Right;Neck - Right;Neck - Left OBJECTIVE MEASURES WITH LEVEL OF FUNCTION: TREATMENT: Therapeutic Exercise: 1: UT 3x30 sec each side 2: seated cervical retraction 3x10, 1 sec hold (requires cues for correc technique, demonstrate cervical flexion but able to correct. No change with L shoulder or neck symptoms) 3: seated scapular squeezes 2x15 (no change per pt. report) 4: *scapular isometrics into wall L shoulder flexion, extension, add, abd, IR, and ER into towel into wall 5x10 sec hold each L only Skilled Intervention: Patient was educated in proper exercise technique and purpose for exercises. Reviewed and educated patient on additions/changes for home exercise program . Skilled judgment was provided in selection of appropriate interventions. Provided written instruction for home exercise program to facilitate proper performance and compliance. Correct performance of therapeutic exercises was facilitated with verbal, visual, and tactile cuing. Additional time necessary for providing cues for correct technique due to reports of no change in symptoms and pt. Having questions regarding HEP exercises given last visit. Educated patient on rationale for performing exercises in regards to decreasing fatigue , increase ease of ADL, and ROM and function . Patient education as noted. Self-Penitentiary Management: 1: *reviewed HEP and purpose of each exercise 2: *discussed reasoning for initially completing isometrics with L shoulder only to determine if they change symptoms as compared to the R. She may begin isometrics on the right side if she notices improvement on the L as a result of the isometrics 3: *continue HEP given last visit on both sides Skilled Intervention: Skilled judgment in the selection of proper modification for activity of daily living/home management based on clinical presentation, deficits, and needs. Reviewed patient specific diagnosis in relation to activities of daily living/home management. Activity progression based on professional judgement. Provided written instruction for home program to facilitate proper performance and compliance. Correct performance of home program was facilitated with verbal, visual, and tactile cueing. Billing Therapeutic Exercise Treatment Minutes: 25 Self-Care/Home Management Treatment Minutes: 5 Total Treatment Time Minutes (timed/untimed): 30 Faye Preciado PT documented in this encounterSt. [facility] Hospital10-28-2022 History of Present illness Narrative* Faye Preciado PT - 02/16/2022 2:05 PM EDT Episode Visit Count: 1 Therapist That Will Accept/Oversee The Plan Of Care: Faye Preciado Start of Care Date: 02/16/22 Onset Date: 08/17/21 Plan of Care Certification Date: 02/16/22 Next Certification Due Date: 03/23/22 Patient Identified by Name and Date of : Yes REHABILITATION AND SPORTS THERAPY PHYSICAL THERAPY EVALUATION PLAN OF CARE: Assessment: Priscilla Ramos presents with diagnosis of chronic pain of both shoulders that interferes with lifting;reaching behind back;reaching overhead;pushing;carrying;pulling;cleaning . She presents with impairments in ADL's, flexibility, independence in exercise, joint mobility, overall function, patient reported outcome measures, posture, range of motion, strength , symptom management, and tissue tenderness. . Prognosis for therapy is Fair due to: chronic nature of impairments;multipleco- morbidities;poor historian;occupational demands;limited tolerance to activity . She will benefit from skilled therapy services to meet the goals established for this plan of care as noted below. Goals for Episode of Care: created on 02/16/22 through 03/30/22 [place] in home exercise program. Patient will increase active ROM of B shoulder elevation to 150-180 degrees without increased symptoms to allow pt to better tolerate reaching forward and overhead activities. Perform lifting and carrying every day objects #0-10 pounds with decreased report of symptoms/pain in 6 weeks. Perform pushing and pulling movements during ADLs without pain. Improve flexibility of B upper trapezius and levator scapulae for improved cervical/scapular AROM with less pain during cervical and shoulder AROM. Improve postural awareness. Patient Goals: improve shoulder strength/endurance with reaching and over head UE movement ADLs. Reduce B shoulder pain Planned Interventions, Frequency, and Duration: Current Frequency: 1x/week Duration: 5 weeks Total Number of Visits Planned: 5 Planned Treatment Interventions: Therapeutic exercise (97831);Neuromuscular re- education (09790);Manual therapy (69909);Therapeutic activities (33789);Self- correction management ([id number]);Gait Training ([id number]);Patient/Family/Caregiver Education PLAN FOR NEXT VISIT: Assess B UT and levator scapulae mobility/symptoms with movement. Begin scapular strengthening isometrics into wall. Patient demonstrates good understanding of plan of care and treatment. The above goals and plan of care were discussed and agreed upon by patient/family. SUBJECTIVE: Priscilla Ramos is a 67 year old female seen today for for B shoulder pain that onset without injury about 3-6 months ago per pt. report. Pt. mentions chronic history of fibomyalgia and was referred by rheumatology. Pt. states that she does not have RA diagonosis. Symptoms are worse in the morning. No specific movements or postures reduce or increase constant symptoms at rest. She notices her B UE strength is very poor and symptoms will radiate into the hands with lifting and reaching over head. Patient Goals: improve shoulder strength/endurance with reaching and over head UE movement ADLs. Reduce B shoulder pain Functional Limitations: lifting;reaching behind back;reaching overhead;pushing;carrying;pulling;cleaning Prior Level of Function: Independent without limitations Relevant History Past Relevant Medical Conditions: Depression;Fibromyalgia;Thyroid Disease Preferred Language: Maori Hobbies / Interests: watches grandchildren Intake Information: Prescription present Previous Treatment: Chiropractor Falls Interview: No positive findings with falls interview Spine History Symptoms Location at Onset: Neck Pain is Worse Always: AM Pain is Better Always: No position Pain: Pain Pain Level: 5 Pain Location: Shoulder - Left;Shoulder - Right;Neck - Right;Neck - Left Description: Aching Frequency: At rest Post Treatment Pain Post Treatment Pain Level: No Change Post Treatment Pain Location: Shoulder - Left;Shoulder - Right;Neck - Right;Neck - Left PROMIS Scales Higher is Better 09/28/2021 01/23/2022 02/14/2022 Phys Func - Score 40 (mild dysfunction) 38 (moderate dysfunction) - Phys Func - Percentile 16 % 12 % - Social Roles - Score - - - Social Role - Percentile - - - GH Physical - Score 37.4 (Fair) 37.4 (Fair) - GH Physical - Percentile 10 % 10 % - GH Mental - Score 41.1 (Good) 43.5 (Good) - GH Mental - Percentile 19 % 26 % - Self-Eff Symptom - Score - - 41 (Average) Self-Eff Symptom - Percentile - - 18 % T-scores: mean of general population = 50. 5 points is clinically meaningfully difference Percentiles provide an indication of how the patient's score ranks in relation to the general population. Higher percentile rankings indicate better function/quality of life. 50th percentile is the average of the general population and indicates half of respondents had a worse score. Lower is Better 02/07/2021 09/28/2021 01/23/2022 Fatigue - Score 64 (moderate) 64 (moderate) 62 (moderate) Fatigue - Percentile 8 % 8 % 12 % T-scores: mean of general population = 50. 5 points is clinically meaningfully difference Percentiles provide an indication of how the patient's score ranks in relation to the general population. Higher percentile rankings indicate better function/quality of life. 50th percentile is the average of the general population and indicates half of respondents had a worse score. OBJECTIVE MEASURES WITH LEVEL OF FUNCTION: Vision Vision Deficits: Wears corrective lenses Posture / Alignment Posture: Forward head R Shoulder Alignment: Rounded shoulder L Shoulder Alignment: Rounded shoulder Effects of Posture Correction: no change reported by patient with sitting erect vs. slump Shoulder Observations L Shoulder Palpation Tenderness: Lateral scapula Sensation - Upper Extremity UE Light Touch Sensation: Grossly Intact Spine Observations R Cervical Spine Palpation Tenderness: Upper trapezius;Levator scapulae L Cervical Spine Palpation Tenderness: Pectoralis minor;Levator scapulae;Upper trapezius Sensation - Cervical Spine Cervical Spine Sensation: Grossly Intact Cervical Spine ROM Cervical ROM : Limitation AROM Cervical Protrusion AROM: Normal;Produces Cervical Retraction AROM: Normal Cervical Flexion AROM: Normal Cervical Extension AROM: Normal Cervical Side-Bend Right AROM: Moderate limitation Cervical Side-Bend Left AROM: Normal Cervical Rotation Right AROM: Normal Cervical Rotation Left AROM: Moderate limitation UE AROM R UE AROM: WFL, no change in symptoms L UE AROM: WF no change in symptoms UE Flexibility Flexibility: Upper Trapezius;Levator Scapulae R Upper Trapezius Flexibilty Comments: WNL, tightness L Upper Trapezius Flexibility Comments: major limitation and tightness more than R R Levator Scapulae Flexibilty Comments: limited L Levator Scapulae Flexibility Comments: limited UE and Cervical Strength Strength Tested: Myotome Cervical/Shoulder R UE Strength: WNL break screen grossly without reproduction of symptoms C4 through C8 myotomes Special Tests - Cervical Cervical Special Tests: Vertebral Artery Test Vertebral Artery Test: Negative Education: Education Learning Preferences: Demonstration;Explanation;Performance;Printed Materials Barriers: None Learning/educational needs: Posture;Plan of Care;Home exercise program;Body Mechanics Education Provided: Yes, see treatment interventions for education provided Education Provided To: Patient Education Mode/Type: Demonstration;Explanation/Discussion;Literature/Printed Materials;Performance Response to Education/Teach Back: States/Identifies;Return Demonstration TREATMENT: PT Treatment Interventions: Therapeutic Exercise;Self-Penitentiary Management Evaluation Therapeutic Exercise: 1: UT 3x30 sec each side 2: seated cervical retraction 2x10, 1 sec hold 3: seated scapular squeezes 2x15 Skilled Intervention: Patient was educated in proper exercise technique and purpose for exercises. Skilled judgment was provided in selection of appropriate interventions. Provided written instruction for home exercise program to facilitate proper performance and compliance. Correct performance of therapeutic exercises was facilitated with verbal, visual, and tactile cuing. Additional time necessary for providing pt. Education due to initial evaluation. Educated patient on rationale for performing exercises in regards to decreasing fatigue , increase ease of ADL, and ROM and function . Patient education as noted. Self-Penitentiary Management: 1: *postural education 2: *discussed the goal of PT exercises to reduce symptoms with exercises -- first we will try to determine if symptoms are affected by movement and identify movements that reduce symptoms 3: *discussed plan to improve functional strength, but gradually in a way that does not increase symptoms Skilled Intervention: Skilled judgment in the selection of proper modification for activity of daily living/home management based on clinical presentation, deficits, and needs. Provided written instruction for activities of daily living techniques to facilitate proper performance and compliance. Reviewed patient specific diagnosis in relation to activities of daily living/home management. Activity progression based on professional judgement. Moderate verbal cues for maintaining neutral spine alignment. Provided written instruction for home program to facilitate proper performance and compliance. Correct performance of home program was facilitated with verbal, visual, and tactile cueing. Billing * Evaluation Low Complexity: 1 Unit Therapeutic Exercise Treatment Minutes: 15 Self-Care/Home Management Treatment Minutes: 10 Total Treatment Time Minutes (timed/untimed): 45 Faye Preciado PT documented [facility] History of Present illness Narrative* Meghann Nielsen RT(R) - 02/05/2022 6:10 PM EDT Radiology Service Progress Note PATIENT NAME: Priscilla Ramos DATE OF SERVICE: February 05, 2022 TIME: 6:10 PM PATIENT IDENTITY VERIFICATION COMPLETED USING TWO (2) IDENTIFIERS: Name and Date of confirmedby patient verbally. FALL SCREENING: Has the patient had 2 falls in the last year or 1 fall with injury or currently using an Ambulatory Assistive Device (Walker, Cane, Wheelchair, Crutches, etc.)? No PATIENT GENDER DATA: Female. status: : No status: NO. PATIENT RELEVANT IMPLANT DATA REVIEWED: Not Applicable RADIOLOGY DEPARTMENT: General X-ray: Exam(s) Completed: Chest X-Ray PERIPHERAL IV DATA: Not applicable SIGNED BY: RT Glendy(R) February 05, 2022 6:10 PM documented in this encounterSt[facility] History of Present illness Narrative* Emilee Condon MD - 02/05/2022 1:48 PM EDT This note was created using [employer]. Subjective Priscilla Ramos is a 67 year old female. No chief complaint on file. SUBJECTIVE: Priscilla Ramos is a 67 year old year old lady here today for follow up appointment for review of medical conditions. Noted issues with heart palpitations. Does not feel BP going up and down. Super tired and winded too. Feels heaviness. Has periods when feels fine. Trying to rios to get in here, felt more tired with heart racing. More episodes though in the past few weeks. Before was once or twice a month. Recently daily. BP has been up to 154/101 with pulse 97 when called in. No more BPs this high. Drove 3.5 hours with 1 stop. No increased leg swelling. Needing to cut back on activity. BiPAP doing fine on. Helps to use when does night back stretches. Headaches and fibro discussed. PAST MEDICAL HISTORY Diagnosis Date Abnormal mammogram, unspecified 06/27/2006 Acquired hypothyroidism 07/04/2017 Calculus of gallbladder with chronic cholecystitis without obstruction 08/01/2015 Corns and callosities 01/24/2014 Diarrhea Dysphagia 05/27/2015 feeling like food sits in bottom of esophagus if eats heavier than usual meal Dysthymic disorder Depression (non-psychotic) Elevated antinuclear antibody (KELTON) level 08/25/2014 Internal hemorrhoids without mention of complication Myalgia and myositis, unspecified FIBROMYALGIA Obesity, unspecified Obesity Obstructive sleep apnea DME [facility] PAIN LEG (Right) 02/20/2005 Temporomandibular joint disorders, unspecified 11/23/2006 Current Outpatient Medications Medication Sig ubidecarenone Q-10 (COENZYME Q-10) 10 mg cap Take 50 mg by mouth once daily. gabapentin (NEURONTIN) 400 mg capsule Take 2 capsule 60-90 minutes before bedtime. levothyroxine (SYNTHROID) 25 mcg tablet Take 1 tablet by mouth once daily. betamethasone dipropionate 0.05 % ointment Apply to affected area twice daily. OTC NUTRITIONAL SUPPLEMENT Take 2 capsules by mouth twice daily. Fibro Care Hmysr-0-HPN-EPA-Fish Oil 300-1,000 mg cap Take 1,000 mg by mouth twice daily. hyperimmune colostrum, bovine 200 mg tab Take 2 tablets by mouth twice daily. colestipol (COLESTID) 1 gram tablet Take 1-2 tablets by mouth once daily. As directed Ca/D3/mag ox/zinc/commercial helicopter pilot/jose/bor (CALCIUM 600-D3 PLUS, MAG-ZINC, ORAL) turmeric/turmeric ext/pepr ext (TURMERIC-TURMERIC EXT-PEPPER) 900-100-5 mg cap CPAP Bipap 17/13 cm H2O, Heat Humidity, suitable mask, Lifetime supplies, opt Chinstrap, G47.33. cholecalciferol (VITAMIN D3) 2,000 unit tablet Take 2,000 Units by mouth once daily. FLUoxetine HCl (PROZAC) 40 mg capsule Take 1 capsule by mouth once daily. (Dr. Garcia) traZODone (DESYREL) 50 mg tablet Take 1 tablet by mouth daily at bedtime. CYANOCOBALAMIN, VITAMIN B-12, (VITAMIN B-12 ORAL) Take by mouth. buPROPion XL (WELLBUTRIN XL) 150 mg 24 hr tablet Take one(1) tablet daily. Biotin (NAIL-EX) 2,500 mcg ORAL Tab Take one(1) tablet daily. DAILY VITAMIN TAB Take one(1) tablet daily. CPAP Increase PAP setting to 17/13 cmH2O. Current Facility-Administered Medications Medication Dose Route Frequency perflutren lipid microspheres 1.3 mL in NaCl (PF) 0.9% 10 mL injection (DEFINITY) INTRAVENOUS DIRECTED PRN sodium chloride 0.9 % (flush) 10 mL (BD POSIFLUSH) 10 mL INTRAVENOUS DIRECTED PRN Review of Systems Objective BP 128/80 Pulse 109 Wt 116.6 kg (257 lb) SpO2 97% BMI 42.77 kg/m Physical Exam Constitutional: Appearance: Normal appearance. She is obese. HENT: Head: Normocephalic. Eyes: Conjunctiva/sclera: Conjunctivae normal. Cardiovascular: Rate and Rhythm: Normal rate and regular rhythm. Heart sounds: Normal heart sounds. Pulmonary: Effort: Pulmonary effort is normal. Breath sounds: Normal breath sounds. Musculoskeletal: Right lower le+ Edema present. Left lower le+ Edema present. Skin: General: Skin is warm and dry. Neurological: General: No focal deficit present. Mental Status: She is alert and oriented to person, place, and time. Psychiatric: Mood and Affect: Mood normal. Behavior: Behavior normal. Thought Content: Thought content normal. Judgment: Judgment normal. Component Latest Ref Rng & Units 09/09/2021 02/03/2022 Protein, Total 6.3 - 8.0 g/dL 6.4 6.8 Albumin 3.9 - 4.9 g/dL 4.1 4.1 Calcium 8.5 - 10.2 mg/dL 9.7 9.6 Bilirubin, Total 0.2 - 1.3 mg/dL 0.4 0.4 Alkaline Phosphatase 34 - 123 U/L 70 80 AST 13 - 35 U/L 23 25 ALT 7 - 38 U/L 25 24 Glucose 74 - 99 mg/dL 102 (H) 98 BUN 7 - 21 mg/dL 23 (H) 14 Creatinine 0.58 - 0.96 mg/dL 0.70 0.70 Sodium 136 - 144 mmol/L 141 140 Potassium 3.7 - 5.1 mmol/L 4.5 4.4 Chloride 97 - 105 mmol/L 105 104 CO2 22 - 30 mmol/L 26 26 Anion Gap 9 - 18 mmol/L 10 10 eGFR >=60 mL/min/1.73m 95 94 WBC 3.70 - 11.00 k/uL 4.66 4.84 RBC 3.90 - 5.20 m/uL 4.52 4.55 Hemoglobin 11.5 - 15.5 g/dL 13.8 14.0 Hematocrit 36.0 - 46.0 % 43.4 43.8 MCV 80.0 - 100.0 fL 96.0 96.3 MCH 26.0 - 34.0 pg 30.5 30.8 MCHC 30.5 - 36.0 g/dL 31.8 32.0 RDW-CV 11.5 - 15.0 % 13.0 13.3 Platelet Count 150 - 400 k/uL 266 284 MPV 9.0 - 12.7 fL 10.1 10.1 Absolute nRBC <0.01 k/uL <0.01 <0.01 Cholesterol, Total <200 mg/dL 193 Triglyceride <150 mg/dL 85 HDL Cholesterol >39 mg/dL 67 Non HDL Cholesterol <130 mg/dL 126 Fasting Time hrs 12 VLDL Cholesterol <30 mg/dL 17 TC:HDL Ratio <5.10 2.88 LDL Cholesterol <100 mg/dL 109 (H) LDL:HDL Ratio <2.54 1.63 Hemoglobin A1C 4.3 - 5.6 % 5.4 Estimated Average Glucose mg/dL 108 TSH 0.270 - 4.200 mIU/L 0.754 1.090 Free T4 0.9 - 1.7 ng/dL 1.2 1.3 Free T3 2.3 - 4.1 pg/mL 3.0 3.2 Magnesium 1.7 - 2.3 mg/dL 2.1 Assessment and Plan ASSESSMENT/PLAN: 1. GARCIA (dyspnea on exertion) - ICD9: 786.09, ICD10: R06.09 (primary diagnosis) Weight increasing and need to rule out change in cardiac function given possible fluid retentoin and SOB. Rule out cardiac issues and possibly VTE Further evaluation and treatment as indicated. Consider CT chest if CXR not revealing cause for GARCIA. - XR CHEST 2V FRONTAL/LAT - ECHO - PERFLUTREN LIPID MICROSPHERES 1.1 MG/ML INJECTION IN NS 10 ML - SODIUM CHLORIDE 0.9 % (FLUSH) INJECTION SYRINGE - D-DIMER 2. Intermittent palpitations - ICD9: 785.1, ICD10: R00.2 Further evaluation and treatment as indicated. Last Echo last year was fine and stable though limited due to body habitus - ECHO - PERFLUTREN LIPID MICROSPHERES 1.1 MG/ML INJECTION IN NS 10 ML - SODIUM CHLORIDE 0.9 % (FLUSH) INJECTION SYRINGE - D-DIMER 3. Sinus tachycardia by electrocardiogram - ICD9: 785.0, ICD10: R00.0 Further evaluation and treatment as indicated. t 4. Bilateral leg edema - ICD9: 782.3, ICD10: R60.0 Further evaluation and treatment as indicated. - ECHO - PERFLUTREN LIPID MICROSPHERES 1.1 MG/ML INJECTION IN NS 10 ML - SODIUM CHLORIDE 0.9 % (FLUSH) INJECTION SYRINGE - D-DIMER 5. Encounter for immunization - ICD9: V03.89, ICD10: Z23 - PNEUMOCOCCAL VACCINE (PREVNAR 20) Emilee Condon MD documented in [facility] encounter[facility] Miscellaneous Notes* Telephone Encounter - Adrianna Laguna LPN - 2022 4:29 PM EDT Patient notified of results and provider's instructions. Patient verbalizes understanding. Appt with pcp arranged. Adrianna Laguna LPN * Telephone Encounter - Emilee Condon MD - 2022 4:11 PM EDT Last 5 Encounter BP Readings: Date: BP: 12/10/2021 138/80 09/29/2021 131/84 09/04/2021 128/82 08/28/2021 132/78 04/13/2021 130/76 Last 5 Encounter Pulse Readings: Date: Pulse: 12/10/2021 86 09/29/2021 94 09/04/2021 77 08/28/2021 68 02/09/2021 70 BPs and pulse have been overall good the past year. Can make appointment to discus symptoms and further evaluation within the next week. Should go to ER if persistent SOB,CP,palpitations with heart rate staying over 130. I will order labs so can see whether having problems with electrolytes or thyroid. Noted May TSH was in normal range but under 1. Also checking magnesium level. Will consider ZIO even monitor for catching episode of palpitations. 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 At 2:50 pm Pulse Ox 98% BP 157/84 Pulse 91. At 2:59 pm tookBP again 154/101 Pulse 97 . Does not take BP medication. No shortness of breath Yesterday 01/31/22 happened she was out running errands and very hard to breath. Yesterday pt went home a took a 500 mg of Magnesium and this helped. Yesterday lasted about 1/2 hours and after takingthe Magnesium it all stopped. This has happened on and off past couple of years and happening more frequent and now that it has happened 2 days in a row it was concerning. Pt states Dr. Condon had told her to call in next time this happens so this is why she is calling. She does not feel this is an emergency room situation. As she is talking to me it is now leaving. Please advise pt. Sarah Monson LPN documented in [facility] encounterSt[facility] History of Present illness Narrative* Sarahi Alfredo MD - 01/24/2022 1:47 PM EDT On 01/24/2022, I had the pleasure of evaluating Prsicilla Ramos in a follow-up [facility] appointment for inflammatory arthritis. This Team Access Model visit is a virtual encounter utilizing both video and audio components. It required patient-provider interaction for the medical decision making as documented below. HPI: To review, Priscilla Ramos is a 66 year old female (goes by [employer]) - With longstanding fibromyalgia for several years, diagnosed sometime in the mid-to-late . - In , had a R TKA - Around /, Dr. Byrd diagnosed with arthritis (unsure of a more specific diagnosis, unsure if osteo vs inflammatory). Had pain in the shoulders, neck and mid>low back at that time. Started on HCQ and tramadol. Unsure if either has helped with the pain which has progressed over time. Unsure if she was on oral steroids in past. - In , reported increased pain in the hands/fingers so advised to add MTX which she deferred. - In Nov, reported pain in the MCPs and PIPs. No pain in the wrists or DIPs. Eases with activity. Worse in morning. Advised to taper off tramadol - In Jan, reported 50% improvement in joint stiffness with HCQ - In September, reported concern about potential for easy sunburn and skin issues with HCQ. Was advised she could hold it for 2 weeks to see if any improvement in itchy scalp. - Today, reports that stopping HCQ helped with skin issues. No change in joint symptoms without HCQ - Bilateral shoulder/clavicle pain. Worst times of day are evening and morning. Eases as she moves it around. Has been worse since stopping HCQ - Takes tylenol 2 tabs bid, (doesn't know strength of tab). - Last plaquenil eye exam normal in September PAST MEDICAL HISTORY Diagnosis Date Abnormal mammogram, unspecified 06/27/2006 Acquired hypothyroidism 07/04/2017 Calculus of gallbladder with chronic cholecystitis without obstruction 08/01/2015 Corns and callosities 01/24/2014 Diarrhea Dysphagia 05/27/2015 feeling like food sits in bottom of esophagus if eats heavier than usual meal Dysthymic disorder Depression (non-psychotic) Elevated antinuclear antibody (KELTON) level 08/25/2014 Internal hemorrhoids without mention of complication Myalgia and myositis, unspecified FIBROMYALGIA Obesity, unspecified Obesity Obstructive sleep apnea DME [facility] PAIN LEG (Right) 02/20/2005 Temporomandibular joint disorders, unspecified 11/23/2006 PAST SURGICAL HISTORY Procedure Laterality Date ARTHRP KNE CONDYLE&PLATU MEDIAL&LAT COMPARTMENTS 09/2011 right DELIVERY ONLY , low cervical DELIVERY ONLY , low cervical COLONOSCOPY FLX DX W/COLLJ SPEC WHEN PFRMD 07/29/2017 Colonoscopy COLONOSCOPY W/BIOPSY SINGLE/MULTIPLE 02/10/07 LAPS SURG CHOLECYSTECTOMY W/CHOLANGIOGRAPHY 08-17-15 PAST SURGICAL HISTORY OF foot-left STEREOTACTIC CORE BIOPSY 07/04/06 UOQ RIGHT AVANI W/WO REMOVAL TUBE OVARY 1999 Hysterectomy, AVANI ovaries remain ALLERGIES No Known Allergies MEDICATIONS: Current Outpatient Medications Medication Sig ubidecarenone Q-10 (COENZYME Q-10) 10 mg cap Take 50 mg by mouth once daily. gabapentin (NEURONTIN) 400 mg capsule Take 2 capsule 60-90 minutes before bedtime. CPAP Increase PAP setting to 17/13 cmH2O. levothyroxine (SYNTHROID) 25 mcg tablet Take 1 tablet by mouth once daily. betamethasone dipropionate 0.05 % ointment Apply to affected area twice daily. OTC NUTRITIONAL SUPPLEMENT Take 2 capsules by mouth twice daily. Fibro Care Srjlw-4-RBR-EPA-Fish Oil 300-1,000 mg cap Take 1,000 mg by mouth twice daily. hyperimmune colostrum, bovine 200 mg tab Take 2 tablets by mouth twice daily. colestipol (COLESTID) 1 gram tablet Take 1-2 tablets by mouth once daily. As directed Ca/D3/mag ox/zinc/commercial helicopter pilot/jose/bor (CALCIUM 600-D3 PLUS, MAG-ZINC, ORAL) turmeric/turmeric ext/pepr ext (TURMERIC-TURMERIC EXT-PEPPER) 900-100-5 mg cap CPAP Bipap 17/13 cm H2O, Heat Humidity, suitable mask, Lifetime supplies, opt Chinstrap, G47.33. cholecalciferol (VITAMIN D3) 2,000 unit tablet Take 2,000 Units by mouth once daily. FLUoxetine HCl (PROZAC) 40 mg capsule Take 1 capsule by mouth once daily. (Dr. Garcia) traZODone (DESYREL) 50 mg tablet Take 1 tablet by mouth daily at bedtime. CYANOCOBALAMIN, VITAMIN B-12, (VITAMIN B-12 ORAL) Take by mouth. buPROPion XL (WELLBUTRIN XL) 150 mg 24 hr tablet Take one(1) tablet daily. Biotin (NAIL-EX) 2,500 mcg ORAL Tab Take one(1) tablet daily. DAILY VITAMIN TAB Take one(1) tablet daily. Current Facility-Administered Medications Medication Dose Route Frequency perflutren lipid microspheres 1.3 mL in NaCl (PF) 0.9% 10 mL injection (DEFINITY) INTRAVENOUS DIRECTED PRN sodium chloride 0.9 % (flush) 10 mL (BD POSIFLUSH) 10 mL INTRAVENOUS DIRECTED PRN FAMILY HISTORY Problem Relation Age of Onset Diabetes Mother late in life at 75 Stroke Mother x3 Cancer Father myeloma (from immunesuppressants) at age 80 of chf and perf. bowel other (ESRD) Father had sudden renal failure; had kidney transplant at 68yo Thyroid Brother Hypertension Son No Known Problems Son SOCIAL HISTORY: Lives in [place]. 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 2 sons. 3 grandchildren Tobacco use: None Alcohol use: 2-3 glasses of wine/day Drug use: None PHYSICAL EXAM: CONSTITUTIONAL: Well-appearing, in NAD. SKIN: No rash. No alopecia. EYES: No scleral icterus or conjunctivitis NEURO: Awake, alert and oriented *Nov Widespread Pain Index: 15 (0-19) Symptoms Severity Scale: 7 (0-12) WPI>7 and SS Scale>5 OR WPI 3-6 and SS Scale >9 consistent with fibromyalgia LABORATORY: Component Latest Ref Rng & Units 03/01/2020 06/21/2020 07/28/2020 NA 136 - 145 mmol/L 139 K 3.5 - 5.1 mmol/L 4.0 Chloride 98 - 107 MEQ/L 108 (A) CO2 21 - 32 MEQ/L 27.0 Glucose 74 - 106 MG/DL 108 (A) BUN 7 - 18 MG/DL 16 Creatinine 0.58 - 0.96 mg/dL 0.74 1.17 (H) GFR mL/MIN 83 GFR AFR AMER mL/MIN 101 Total Protein 6.4 - 8.2 gm/dL 7.2 Albumin 3.2 - 4.6 gm/dL 3.4 Calcium 8.5 - 10.1 mg/dL 9.0 Bili Total 0.2 - 1 mg/dL 0.50 AST 8 - 37 U/L 20 ALT (SGPT) 12 - 78 U/L 36 Alk Phos Total 45 - 117 U/L 74 WBC 3.70 - 11.00 k/uL 6.03 RBC 3.90 - 5.20 m/uL 4.55 Hemoglobin 11.5 - 15.5 g/dL 14.4 Platelet Count 150 - 400 k/uL 252 MPV 9.0 - 12.7 fL 9.3 Absol Gran Count 1.45 - 7.50 k/uL 3.61 Absolute nRBC <0.01 k/uL <0.01 eGFR- 56 eGFR-All Other Races . 46 Component Latest Ref Rng & Units 08/21/2014 KELTON Negative Positive (A) KELTON Titer Negative 1:80 (A) KELTON Pattern Speckled STUDIES: *Nov MRI L-spine- Advanced lumbar spondylosis with multiple levels of severe spinal canal stenosis at L2-L3, L3-L4 and L4-L5. Up to severe foraminal stenosis on the right at L4-L5. IMPRESSION and PLAN: 1. Prior diagnosis of inflammatory arthritis: Pain in the wrists, MCPs, and PIPs per exam which could be due to inflammatory arthritis. HCQ ineffective, caused skin issues and no change since stopping in September aside from increased shoulder pain. Overall stable. - Continue monitoring off HCQ 2. Generalized osteoarthritis: Hands, spine, knee s/p R TKA in . Tapered off tramadol - Advised taking tylenol up to 3000mg/day as needed for pain - Given referral to PT for shoulder pain - Consider alternative therapies such as lyrica if needed (can't try savella given she is currentlyon prozac) - Avoid NSAIDs PO given elevated July Cr level 3. Spinal stenosis/lumbar spondylosis: Per MRI - Given referrals to spine clinic and PT in the past 4. Fibromyalgia: Meets criteria based on WPI/SS scale score as above. - Explained diagnosis and provided literature on fibromyalgia for review - Advised aerobic exercise - Please refer to the fibromyalgia treatment guidelines as detailed in the Nov note for furthermanagement by PCP 5. General health maintenance: - Completed the covid vaccination series in July, moderna - Advised to continue follow-up with PCP for routine health maintenance and malignancy screening Follow-up with Prince in 4, 8 & 12 months and with me in 16 months. Patient was instructed to call if any new or worsening symptoms. Thank you for allowing me to participate in the care of your patient. Sarahi Alfredo MD documented in this encounterSt. [facility]09-19-2022 Miscellaneous Notes* Telephone Encounter - Eun Gould MA - 01/08/2022 3:13 PM EDT Called patient. Patient is unable to come in for the visit but is able to do virtual visit. Patient has been swapped with another patient that day. Patient is scheduled virtual visit 01/24 at 1:40 pm. Eun Gould MA * Telephone Encounter - [facility] - 01/08/2022 2:17 PM EDT Pt calling because she has an appt in January however she cannot make it. There are no appts until November 2020. Pt asking if she can be seen sooner than that. ShePlease call to discuss/schedule. Thank you! documented in this encounterSt. Vincent Hospital08-22-2022 Miscellaneous Notes* Telephone Encounter - Tea Ross Ma - 12/11/2021 2:45 PM EDT Checked with UC, see reply back to patient documented in this encounterSt. Vincent Hospital08-21-2022 History of Present illness Narrative* Erika Pinedo APRN.WEIGHT TRAINING INSTRUCTOR - 12/10/2021 3:53 PM EDT Subjective HPI HPI Priscilla Ramos is a 66 year old female who presents today for CC of nasal congestion/pressure, h/a, st, fatigue. This started 3 days ago. Has tried otc medication for relief. Symptoms are worsened by nothign. Risk factors denies known sick exposure. Denies cp/sob, n/v/d, ear pain, cough, fever. Nonsmoker. Denies hx of environmental allergies. .Patient presents with: Headache: X3 days pain rated 3, nasal congestion PAST MEDICAL HISTORY Diagnosis Date Abnormal mammogram, unspecified 06/27/2006 Acquired hypothyroidism 07/04/2017 Calculus of gallbladder with chronic cholecystitis without obstruction 08/01/2015 Corns and callosities 01/24/2014 Diarrhea Dysphagia 05/27/2015 feeling like food sits in bottom of esophagus if eats heavier than usual meal Dysthymic disorder Depression (non-psychotic) Elevated antinuclear antibody (KELTON) level 08/25/2014 Internal hemorrhoids without mention of complication Myalgia and myositis, unspecified FIBROMYALGIA Obesity, unspecified Obesity Obstructive sleep apnea DME [employer] PAIN LEG (Right) 02/20/2005 Temporomandibular joint disorders, unspecified 11/23/2006 PAST SURGICAL HISTORY Procedure Laterality Date ARTHRP KNE CONDYLE&PLATU MEDIAL&LAT COMPARTMENTS 09/2011 right DELIVERY ONLY , low cervical DELIVERY ONLY , low cervical COLONOSCOPY FLX DX W/COLLJ SPEC WHEN PFRMD 07/29/2017 Colonoscopy COLONOSCOPY W/BIOPSY SINGLE/MULTIPLE 02/10/07 LAPS SURG CHOLECYSTECTOMY W/CHOLANGIOGRAPHY 08-17-15 PAST SURGICAL HISTORY OF foot-left STEREOTACTIC CORE BIOPSY 07/04/06 UOQ RIGHT AVANI W/WO REMOVAL TUBE OVARY 1999 Hysterectomy, AVANI ovaries remain ALLERGIES Patient has no known allergies. MEDICATIONS ubidecarenone Q-10 (COENZYME Q-10) 10 mg cap^Take 50 mg by mouth once daily.^Disp: ^Rfl: gabapentin (NEURONTIN) 400 mg capsule^Take 2 capsule 60-90 minutes before bedtime.^Disp: 180 capsule^Rfl: 1 CPAP^Increase PAP setting to 17/13 cmH2O.^Disp: 1 Each^Rfl: 99 levothyroxine (SYNTHROID) 25 mcg tablet^Take 1 tablet by mouth once daily.^Disp: 90 tablet^Rfl: 3 betamethasone dipropionate 0.05 % ointment^Apply to affected area twice daily.^Disp: 45 g^Rfl: 5 OTC NUTRITIONAL SUPPLEMENT^Take 2 capsules by mouth twice daily. Fibro Care^Disp: ^Rfl: Kfbzy-5-IOE-EPA-Fish Oil 300-1,000 mg cap^Take 1,000 mg by mouth twice daily.^Disp: ^Rfl: hyperimmune colostrum, bovine 200 mg tab^Take 2 tablets by mouth twice daily.^Disp: ^Rfl: colestipol (COLESTID) 1 gram tablet^Take 1-2 tablets by mouth once daily. As directed^Disp: 60 tablet^Rfl: 11 Ca/D3/mag ox/zinc/commercial helicopter pilot/jose/bor (CALCIUM 600-D3 PLUS, MAG-ZINC, ORAL)^^Disp: ^Rfl: turmeric/turmeric ext/pepr ext (TURMERIC-TURMERIC EXT-PEPPER) 900-100-5 mg cap^^Disp: ^Rfl: CPAP^Bipap 17/13 cm H2O, Heat Humidity, suitable mask, [employer] supplies, opt Chinstrap, G47.33.^Disp: 1 Device^Rfl: 0 cholecalciferol (VITAMIN D3) 2,000 unit tablet^Take 2,000 Units by mouth once daily. ^Disp: ^Rfl: FLUoxetine HCl (PROZAC) 40 mg capsule^Take 1 capsule by mouth once daily. (Dr. Garcia)^Disp: ^Rfl: traZODone (DESYREL) 50 mg tablet^Take 1 tablet by mouth daily at bedtime.^Disp: ^Rfl: CYANOCOBALAMIN, VITAMIN B-12, (VITAMIN B-12 ORAL)^Take by mouth.^Disp: ^Rfl: buPROPion XL (WELLBUTRIN XL) 150 mg 24 hr tablet^Take one(1) tablet daily.^Disp: ^Rfl: 0 Biotin (NAIL-EX) 2,500 mcg ORAL Tab^Take one(1) tablet daily.^Disp: ^Rfl: 0 DAILY VITAMIN TAB^Take one(1) tablet daily.^Disp: ^Rfl: 0 amoxicillin-clavulanic acid (AUGMENTIN) 875-125 mg per tablet^Take 1 tablet by mouth twice daily for 7 days.^Disp: 14 tablet^Rfl: 0 FAMILY HISTORY Problem Relation Age of Onset Diabetes Mother late in life at 75 Stroke Mother x3 Cancer Father myeloma (from immunesuppressants) at age 80 of chf and perf. bowel other (ESRD) Father had sudden renal failure; had kidney transplant at 68yo Thyroid Brother Hypertension Son No Known Problems Son Social History Tobacco Use Smoking status: Never Smokeless tobacco: Never Vaping Use Vaping Use: Never used Substance Use Topics Alcohol use: Yes Alcohol/week: 18.0 standard drinks Types: 18 Glasses of wine per week Comment: wine with supper Drug use: No ROS Objective Blood pressure 138/80, pulse 86, temperature 36.4 C (97.6 F), resp. rate 18, weight 116.7 kg (257 lb 3.2 oz), SpO2 97 %. Component Latest Ref Rng & Units 09/09/2021 Protein, Total 6.3 - 8.0 g/dL 6.4 Albumin 3.9 - 4.9 g/dL 4.1 Calcium 8.5 - 10.2 mg/dL 9.7 Bilirubin, Total 0.2 - 1.3 mg/dL 0.4 Alkaline Phosphatase 34 - 123 U/L 70 AST 13 - 35 U/L 23 ALT 7 - 38 U/L 25 Glucose 74 - 99 mg/dL 102 (H) BUN 7 - 21 mg/dL 23 (H) Creatinine 0.58 - 0.96 mg/dL 0.70 Sodium 136 - 144 mmol/L 141 Potassium 3.7 - 5.1 mmol/L 4.5 Chloride 97 - 105 mmol/L 105 CO2 22 - 30 mmol/L 26 Anion Gap 9 - 18 mmol/L 10 eGFR >=60 mL/min/1.73m 95 Physical Exam Constitutional: General: She is not in acute distress. Appearance: She is not toxic-appearing or diaphoretic. HENT: Head: Normocephalic and atraumatic. Nose: Right Sinus: Maxillary sinus tenderness present. Mouth/Throat: Pharynx: Uvula midline. No pharyngeal swelling, oropharyngeal exudate, posterior oropharyngeal erythema or uvula swelling. Eyes: General: Lids are normal. No scleral icterus. Right eye: No discharge. Left eye: No discharge. Conjunctiva/sclera: Conjunctivae normal. Pupils: Pupils are equal, round, and reactive to light. Neck: Trachea: Trachea normal. Cardiovascular: Rate and Rhythm: Normal rate and regular rhythm. Heart sounds: Normal heart sounds. Pulmonary: Effort: Pulmonary effort is normal. Breath sounds: Normal breath sounds. Musculoskeletal: Cervical back: Normal range of motion and neck supple. Lymphadenopathy: Cervical: No cervical adenopathy. Right cervical: No superficial cervical adenopathy. Left cervical: No superficial cervical adenopathy. Skin: Findings: No rash. Neurological: Mental Status: She is alert and oriented to person, place, and time. ASSESSMENT/PLAN: 1. Sinus pressure - ICD9: 478.19, ICD10: J34.89 (primary diagnosis) - The patient should also be given OTC decongestants prn for the first 5-7 days of treatment. - Supportive care with plenty of fluids, rest, and analgesia prn. Hold atb for 5 days, fill if worsening s/s. - AMOXICILLIN 875 MG-POTASSIUM CLAVULANATE 125 MG TABLET 2. URI, acute - ICD9: 465.9, ICD10: J06.9 - Discussed viral etiology and rationale for treatment. - Symptomatic treatment with prn analgesia - Supportive care with fluids and rest Discussed quarantine, social distancing otc medications discussed Push fluids -If you experience chest pain/shortness of breath go to ER - 2018 CORONAVIRUS Agrees to plan Declines avs Erika Pinedo APRN.ISAURO documented in this encounterSt. [facility]06-10-2022 History of Present illness Narrative* Prince West APRN.CNP - 09/29/2021 3:00 PM EDT Chief complaint: Joint pain HPI: To review, Priscilla Ramos is a 66 year old female (goes by [employer]) - With longstanding fibromyalgia for several years, diagnosed sometime in the mid-to-late . - In , had a R TKA - Around , Dr. Byrd diagnosed with arthritis (unsure of a more specific diagnosis, unsure if osteo vs inflammatory). Had pain in the shoulders, neck and mid>low back at that time. Started on HCQ and tramadol. Unsure if either has helped with the pain which has progressed over time. Unsure if she was on oral steroids in past. - In , reported increased pain in the hands/fingers so advised to add MTX which she deferred. - in 11/2020, reports pain in the MCPs and PIPs. No pain in the wrists or DIPs. Eases with activity.Worse in morning. - Takes tramadol for pain. Sometimes takes ibuprofen 600mg once daily, everyday. Hasn't tried tylenol - Morning stiffness x2-3 hours - Hasn't done PT for back, has apt with PCP for back later this week. - Last plaquenil eye exam normal in September PAST MEDICAL HISTORY Diagnosis Date Abnormal mammogram, unspecified 06/27/2006 Acquired hypothyroidism 07/04/2017 Calculus of gallbladder with chronic cholecystitis without obstruction 08/01/2015 Corns and callosities 01/24/2014 Diarrhea Dysphagia 05/27/2015 feeling like food sits in bottom of esophagus if eats heavier than usual meal Dysthymic disorder Depression (non-psychotic) Elevated antinuclear antibody (KELTON) level 08/25/2014 Internal hemorrhoids without mention of complication Myalgia and myositis, unspecified FIBROMYALGIA Obesity, unspecified Obesity Obstructive sleep apnea DME [employer] PAIN LEG (Right) 02/20/2005 Temporomandibular joint disorders, unspecified 11/23/2006 PAST SURGICAL HISTORY Procedure Laterality Date ARTHRP KNE CONDYLE&PLATU MEDIAL&LAT COMPARTMENTS 09/2011 right DELIVERY ONLY , low cervical DELIVERY ONLY , low cervical COLONOSCOPY FLX DX W/COLLJ SPEC WHEN PFRMD 07/29/2017 Colonoscopy COLONOSCOPY W/BIOPSY SINGLE/MULTIPLE 02/10/07 LAPS SURG CHOLECYSTECTOMY W/CHOLANGIOGRAPHY 08-17-15 PAST SURGICAL HISTORY OF foot-left STEREOTACTIC CORE BIOPSY 07/04/06 UOQ RIGHT AVANI W/WO REMOVAL TUBE OVARY 1999 Hysterectomy, AVANI ovaries remain ALLERGIES No Known Allergies INTERVAL HISTORY She is here for follow up. She is doing well overall. She is no longer taking tramadol. She takes tylenol for pain. Sites of pain: low back, pain rated 3/10 Joint swelling: ankles EMS: yes, lasting 60 minutes She had Covid in 07/2021. Otherwise no recent infections. Tolerating meds. Answers for HPI/ROS submitted by the patient on 09/28/2021 Fever : No Recent Unintentional Weight Change: No Eye Pain: No Eye Redness: No Vision Disturbance: No Eye Dryness: No Nose Bleeds: No Sores in your Mouth: No Trouble Swallowing: No Dry Mouth: No Chest Pain: No Leg Swelling: Yes A Cough: No Shortness of Breath: No Pain with Breathing: No Heartburn: No Abdominal Pain: No Diarrhea: Yes Black Tarry Stools: No Blood in Urine: No Pain or Burning with Urination: No Joint Pain or Stiffness: Yes Muscle Weakness: No Muscle Aches: No Joint Swelling: No Morning Stiffness in Joints: Yes A Rash: No Skin Color Changes: No Hair Loss: No Nail Changes: No Headaches: No Numbness: No Memory Loss: No Swollen Glands: No Current Outpatient Medications Medication Sig ubidecarenone Q-10 (COENZYME Q-10) 10 mg cap Take 50 mg by mouth once daily. gabapentin (NEURONTIN) 400 mg capsule Take 2 capsule 60-90 minutes before bedtime. CPAP Increase PAP setting to 17/13 cmH2O. levothyroxine (SYNTHROID) 25 mcg tablet Take 1 tablet by mouth once daily. betamethasone dipropionate 0.05 % ointment Apply to affected area twice daily. hydrOXYchloroQUINE (PLAQUENIL) 200 mg tablet Take 1 tablet by mouth twice daily. Take 200 mg by mouth twice daily. OTC NUTRITIONAL SUPPLEMENT Take 2 capsules by mouth twice daily. Fibro Care Fmmxk-4-DXK-EPA-Fish Oil (FISH OIL) 300-1,000 mg cap Take 1,000 mg by mouth twice daily. hyperimmune colostrum, bovine 200 mg tab Take 2 tablets by mouth twice daily. colestipol (COLESTID) 1 gram tablet Take 1-2 tablets by mouth once daily. As directed Ca/D3/mag ox/zinc/commercial helicopter pilot/jose/bor (CALCIUM 600-D3 PLUS, MAG-ZINC, ORAL) turmeric/turmeric ext/pepr ext (TURMERIC-TURMERIC EXT-PEPPER) 900-100-5 mg cap (Patient not taking:Reported on 08/28/2021 ) CPAP Bipap 17/13 cm H2O, Heat Humidity, suitable mask, [employer] supplies, opt Chinstrap, G47.33. cholecalciferol (VITAMIN D3) 2,000 unit tablet Take 2,000 Units by mouth once daily. FLUoxetine HCl (PROZAC) 40 mg capsule Take 1 capsule by mouth once daily. (Dr. Garcia) traZODone (DESYREL) 50 mg tablet Take 1 tablet by mouth daily at bedtime. CYANOCOBALAMIN, VITAMIN B-12, (VITAMIN B-12 ORAL) Take by mouth. buPROPion XL (WELLBUTRIN XL) 150 mg ORAL 24 hr tablet Take one(1) tablet daily. Biotin (NAIL-EX) 2,500 mcg ORAL Tab Take one(1) tablet daily. DAILY VITAMIN TAB Take one(1) tablet daily. Current Facility-Administered Medications Medication Dose Route Frequency perflutren lipid microspheres 1.3 mL in NaCl (PF) 0.9% 10 mL injection (DEFINITY) INTRAVENOUS DIRECTED PRN sodium chloride 0.9 % (flush) 10 mL (BD POSIFLUSH) 10 mL INTRAVENOUS DIRECTED PRN FAMILY HISTORY Problem Relation Age of Onset Diabetes Mother late in life at 75 Stroke Mother x3 Cancer Father myeloma (from immunesuppressants) at age 80 of chf and perf. bowel other (ESRD) Father had sudden renal failure; had kidney transplant at 68yo Thyroid Brother Hypertension Son No Known Problems Son SOCIAL HISTORY: Lives in [place]. 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 2 sons. 3 grandchildren Tobacco use: None Alcohol use: 2-3 glasses of wine/day Drug use: None PHYSICAL EXAM: BP 131/84 Pulse 94 Temp 36.8 C (98.2 F) (Temporal) Ht 165.1 cm (5' 5) Wt 113.4 kg (250 lb) BMI 41.60 kg/m CONSTITUTIONAL: Well-appearing, in NAD. SKIN: Erythematous macules over certain bilateral knuckles, most severe lesion with scaly papule over the R 3rd dorsal MCP. No alopecia. No sclerodactyly, calcinosis, telangiectasias, digital ulcers,or skin thickening. EYES: No scleral icterus or conjunctivitis ENT and Mouth: External ears normal. NECK: No lymphadenopathy RESPIRATORY: Normal breath sounds, clear to auscultation. CARDIOVASCULAR: Regular rate and rhythm, no murmurs or rubs GASTROENTEROLOGY: Normal bowel sounds. Abdomen is soft and non-tender. EXTREMITIES/LYMPH: No edema bilaterally NEURO: Awake, alert and oriented, Normal gait MUSCULOSKELETAL: JOINT APPEARANCE: Heberden's nodes present bilaterally. No erythema or warmth of any upper or lowerextremity joint. RANGE OF MOTION: Able to fully close fists and curl fingers bilaterally. SWOLLEN JOINTS/SYNOVITIS: No synovitis of any joint. TENDER JOINTS: Tenderness to palpation of the R mcp's and L PIPs No tenderness to spine or SI joints Widespread Pain Index: 15 (0-19) Symptoms Severity Scale: 7 (0-12) WPI>7 and SS Scale>5 OR WPI 3-6 and SS Scale >9 consistent with fibromyalgia Labs reviewed and discussed with the patient: Component Latest Ref Rng & Units 09/09/2021 Protein, Total 6.3 - 8.0 g/dL 6.4 Albumin 3.9 - 4.9 g/dL 4.1 Calcium 8.5 - 10.2 mg/dL 9.7 Bilirubin, Total 0.2 - 1.3 mg/dL 0.4 Alkaline Phosphatase 34 - 123 U/L 70 AST 13 - 35 U/L 23 ALT 7 - 38 U/L 25 Glucose 74 - 99 mg/dL 102 (H) BUN 7 - 21 mg/dL 23 (H) Creatinine 0.58 - 0.96 mg/dL 0.70 Sodium 136 - 144 mmol/L 141 Potassium 3.7 - 5.1 mmol/L 4.5 Chloride 97 - 105 mmol/L 105 CO2 22 - 30 mmol/L 26 Anion Gap 9 - 18 mmol/L 10 eGFR >=60 mL/min/1.73m 95 WBC 3.70 - 11.00 k/uL 4.66 RBC 3.90 - 5.20 m/uL 4.52 Hemoglobin 11.5 - 15.5 g/dL 13.8 Hematocrit 36.0 - 46.0 % 43.4 MCV 80.0 - 100.0 fL 96.0 MCH 26.0 - 34.0 pg 30.5 MCHC 30.5 - 36.0 g/dL 31.8 RDW-CV 11.5 - 15.0 % 13.0 Platelet Count 150 - 400 k/uL 266 MPV 9.0 - 12.7 fL 10.1 Absolute nRBC <0.01 k/uL <0.01 Component Latest Ref Rng & Units 12/14/2020 WBC 3.70 - 11.00 k/uL 5.92 RBC 3.90 - 5.20 m/uL 4.75 Hemoglobin 11.5 - 15.5 g/dL 14.7 Hematocrit 36.0 - 46.0 % 45.4 MCV 80.0 - 100.0 fL 95.6 MCH 26.0 - 34.0 pG 30.9 MCHC 30.5 - 36.0 g/dL 32.4 RDW-CV 11.5 - 15.0 % 12.9 Platelet Count 150 - 400 k/uL 298 MPV 9.0 - 12.7 fL 10.1 Absolute nRBC <0.01 k/uL <0.01 Albumin 3.9 - 4.9 g/dL 4.3 Bilirubin, Total 0.2 - 1.3 mg/dL 0.4 Bilirubin, Conjug <0.2 mg/dL <0.2 Alkaline Phosphatase 34 - 123 U/L 70 AST 13 - 35 U/L 28 ALT 7 - 38 U/L 24 Protein, Total 6.3 - 8.0 g/dL 6.9 Hep B Core Ab, Total Negative Negative Hep C Antibody IA Negative Negative Hep B Surface Ag Negative Negative Hep B Surface Ab, Qual Negative Negative Creatinine 0.58 - 0.96 mg/dL 0.78 eGFR- >60 eGFR-All Other Races . >60 TSH 0.270 - 4.200 uU/mL 1.370 Rheumatoid Factor <16 IU/mL 13 CCP Antibody, IgG <20 Units <15 WSR 0 - 20 mm/hr 5 CRP <0.9 mg/dL <0.3 Component Latest Ref Rng & Units 08/21/2014 KELTON Negative Positive (A) KELTON Titer Negative 1:80 (A) KELTON Pattern Speckled STUDIES: 11/2020 hand x-rays: IMPRESSION: Degenerative changes in the bilateral hands as described above. *Nov MRI L-spine- Advanced lumbar spondylosis with multiple levels of severe spinal canal stenosis at L2-L3, L3-L4 and L4-L5. Up to severe foraminal stenosis on the right at L4-L5. IMPRESSION and PLAN: 1. Prior diagnosis of inflammatory arthritis: Pain in the wrists, MCPs, and PIPs per exam which could be due to inflammatory arthritis. On HCQ, unsure of efficacy. Advised that she has osteoarthritis(exam with Heberden's nodes) and fibromyalgia regardless of whether inflammatory arthritis is present or active. But it is unclear whether current pain is truly due to active inflammation or not. Stable overall. - Continue HCQ 200 mg bid for now. If no evidence for background of inflammatory arthritis, could consider tapering off in the future. Last normal eye exam in September. She was reminded to schedule for this year. 2. Generalized osteoarthritis: Hands, spine, knee s/p R TKA in - Explained diagnosis and previously provided written information on condition for review - Advised taking tylenol up to 3000mg/day as needed for pain. Written instructions provided as a reference. - could consider alternative therapies such as lyrica in the future if needed (can't try savella given she is currently on prozac) - Avoid NSAIDs PO given elevated July Cr level 3. Spinal stenosis/lumbar spondylosis: Per MRI - previously given referrals to spine clinic and PT -continue HEP 4. Elevated Cr: - recent level was within normal limits - Advised to avoid NSAIDs PO 5. Fibromyalgia: Meets criteria based on WPI/SS scale score as above. - Advised aerobic exercise - Please refer to the fibromyalgia treatment guidelines as detailed in previous note for further management by PCP 6. General health maintenance: - Completed the covid vaccination series in July, moderna, 3rd in 02/2021, 4th 07/2021 - Advised to continue follow-up with PCP for routine health maintenance and malignancy screening Follow-up with Dr. Alfredo in 4 months. Patient was instructed to call if any new or worsening symptoms. Thank you for allowing me to participate in the care of your patient. I spent a total of 20 minutes on the date of the service which included preparing to see the patient, [id number] patient care, completing clinical documentation, performing a medically appropriate examination and communicating results to the patient/family/caregiver. Prince West APRN.ISAURO documented in this encounterSt. [facility]06-10-2022 Instructions* Patient Instructions* Prince West APRN.CNP - 09/29/2021 2:55 PM EDT Please schedule a Plaquenil eye exam for 09/2021 documented in this encounterSt. [facility] Hospital06-03-2022 Miscellaneous Notes* Telephone Encounter - Emilee Condon MD - 09/22/2021 1:40 AM EDT Patient seen at [facility] [facility] and discussed her recent labs with elevated BUN. Reviewed that she had been working out in the heat and does not drink enough water typically. Reviewed prevention of dehydration and heat stroke. Encouraged to get 6 to 8 cups of noncaffeinated fluids daily plus if gets lightheaded or dizzy from dehydration/low BP, drink 2 cups of fluid under 5 minutes to get BP up. She will drink more water prior to future labs. Further evaluation and treatment as indicated. I added result notes to labs * Telephone Encounter - Adwoa Christian LPN - 09/20/2021 4:47 PM EDT Patient said she did not drink water, since she was fasting for the lab work. She said she had glass water that morning to take her thyroid medication. Patient said she is just not feeling good past 3 days. She had been out in the heat 3 days ago. Sheis just fatigued and headache. Asked if she is drinking plenty of fluids. Patient said she has beentrying to drink. Advised to keep powerade, gatorade or pedilyte in case has this issue. documented in this encounterSt. [facility] Hospital05-24-2022 Miscellaneous Notes* Telephone Encounter - Jaja Mcconnell RN - 09/12/2021 9:56 AM EDT Protocol recommends patient call poison control center. Patient agreeable to call [phone]. Agreeable to call 911 if condition becomes worse. Reports her son is with her. Reason for Disposition MORE THAN A DOUBLE DOSE of a prescription or tyml-emo-awxeing (OTC) drug Answer Assessment - Initial Assessment Questions 1. NAME of MEDICATION: Magnesium 1000 mg today and yesterday 2. QUESTION: Thinks she took too much. Reports she is feeling weak today. No SOB. No dizziness. 3. PRESCRIBING HCP: Magnesium 500 mg is not prescribed by a doctor. Reports had palpitations over the weekend and thought if she increased to 1000 mg would help with palpitations. Took 1000 mg today and yesterday. Reports chiropractor had recommended this in the past for her palpitations. 4. SYMPTOMS: Feeling weak. BP with home cuff- 157/91 (82), BP monitor tells her she has irregular rhythm- patient reports this is not new. 5. SEVERITY Mild 6. : N/A Protocols used: MEDICATION QUESTION [id number] documented in this encounterSt. Vincent Hospital05-16-2022 History of Present illness Narrative* Emilee Condon MD - 09/04/2021 4:42 PM EDT This note was created using NoteWriter. Subjective Priscilla Ramos is a 66 year old female. Patient presents with: F/U 6 months SUBJECTIVE: Priscilla Ramos is a 66 year old year old lady here today for 6 month follow up appointment for review of medical conditions. Reviewed echo Pain limits activity and interferes with weight loss. Fatigue after COVID. Was like a severe head cold. Still with drainaged and headache. Positive 4/24 but symptoms started the day prior. Probably from 3yo grandchild. Po pain or pressure in sinuses now. Drainage and some throat irritation. Occasionally headachy. Not been able to get back on track with massotherapy. Has exercises for spinal stenosis. Does pain relieving ones routinely. Not as good at strengthening. Stays busy in her yard and garden. Cutting calories from drinks (wine). Tylenol for pain now. PAST MEDICAL HISTORY Diagnosis Date Abnormal mammogram, unspecified 06/27/2006 Acquired hypothyroidism 07/04/2017 Calculus of gallbladder with chronic cholecystitis without obstruction 08/01/2015 Corns and callosities 01/24/2014 Diarrhea Dysphagia 05/27/2015 feeling like food sits in bottom of esophagus if eats heavier than usual meal Dysthymic disorder Depression (non-psychotic) Elevated antinuclear antibody (KELTON) level 08/25/2014 Internal hemorrhoids without mention of complication Myalgia and myositis, unspecified FIBROMYALGIA Obesity, unspecified Obesity Obstructive sleep apnea DME [facility]G (Right) 02/20/2005 Temporomandibular joint disorders, unspecified 11/23/2006 Current Outpatient Medications Medication Sig ubidecarenone Q-10 (COENZYME Q-10) 10 mg cap Take 50 mg by mouth once daily. gabapentin (NEURONTIN) 400 mg capsule Take 2 capsule 60-90 minutes before bedtime. levothyroxine (SYNTHROID) 25 mcg tablet Take 1 tablet by mouth once daily. betamethasone dipropionate 0.05 % ointment Apply to affected area twice daily. hydrOXYchloroQUINE (PLAQUENIL) 200 mg tablet Take 1 tablet by mouth twice daily. Take 200 mg by mouth twice daily. OTC NUTRITIONAL SUPPLEMENT Take 2 capsules by mouth twice daily. Fibro Care Uohob-7-FVA-EPA-Fish Oil (FISH OIL) 300-1,000 mg cap Take 1,000 mg by mouth twice daily. hyperimmune colostrum, bovine 200 mg tab Take 2 tablets by mouth twice daily. colestipol (COLESTID) 1 gram tablet Take 1-2 tablets by mouth once daily. As directed Ca/D3/mag ox/zinc/commercial helicopter pilot/jose/bor (CALCIUM 600-D3 PLUS, MAG-ZINC, ORAL) CPAP Bipap 17/13 cm H2O, Heat Humidity, suitable mask, [employer] supplies, opt Chinstrap, G47.33. cholecalciferol (VITAMIN D3) 2,000 unit tablet Take 2,000 Units by mouth once daily. FLUoxetine HCl (PROZAC) 40 mg capsule Take 1 capsule by mouth once daily. (Dr. Garcia) traZODone (DESYREL) 50 mg tablet Take 1 tablet by mouth daily at bedtime. CYANOCOBALAMIN, VITAMIN B-12, (VITAMIN B-12 ORAL) Take by mouth. buPROPion XL (WELLBUTRIN XL) 150 mg ORAL 24 hr tablet Take one(1) tablet daily. Biotin (NAIL-EX) 2,500 mcg ORAL Tab Take one(1) tablet daily. DAILY VITAMIN TAB Take one(1) tablet daily. CPAP Increase PAP setting to 17/13 cmH2O. turmeric/turmeric ext/pepr ext (TURMERIC-TURMERIC EXT-PEPPER) 900-100-5 mg cap (Patient not taking:Reported on 08/28/2021 ) Current Facility-Administered Medications Medication Dose Route Frequency perflutren lipid microspheres 1.3 mL in NaCl (PF) 0.9% 10 mL injection (DEFINITY) INTRAVENOUS DIRECTED PRN sodium chloride 0.9 % (flush) 10 mL (BD POSIFLUSH) 10 mL INTRAVENOUS DIRECTED PRN Review of Systems Objective BP 128/82 Pulse 77 Wt 115.7 kg (255 lb) SpO2 96% BMI 42.43 kg/m Last 5 Encounter Wt Readings: Date: Wt: 09/04/2021 115.7 kg (255 lb) 08/28/2021 115.2 kg (254 lb) 04/13/2021 113.4 kg (250 lb) 02/09/2021 112.9 kg (249 lb) 01/30/2021 113.4 kg (250 lb) No waist measurement recorded Estimated body mass index is 42.43 kg/m as calculated from the following: Height as of 04/13/21: 165.1 cm (5' 5). Weight as of this encounter: 115.7 kg (255 lb). Last 5 Encounter BP Readings: Date: BP: 09/04/2021 128/82 08/28/2021 132/78 04/13/2021 130/76 03/08/2021 148/78 02/09/2021 144/83 Physical Exam Constitutional: Appearance: Normal appearance. She is obese. HENT: Head: Normocephalic. Eyes: Conjunctiva/sclera: Conjunctivae normal. Cardiovascular: Rate and Rhythm: Normal rate and regular rhythm. Heart sounds: Normal heart sounds. Pulmonary: Effort: Pulmonary effort is normal. Breath sounds: Normal breath sounds. Musculoskeletal: Right lower le+ Pitting Edema present. Left lower le+ Pitting Edema present. Skin: General: Skin is warm and dry. Neurological: General: No focal deficit present. Mental Status: She is alert and oriented to person, place, and time. Psychiatric: Mood and Affect: Mood normal. Behavior: Behavior normal. Thought Content: Thought content normal. Judgment: Judgment normal. Component Latest Ref Rng & Units 03/06/2021 Albumin 3.9 - 4.9 g/dL 4.1 Calcium 8.5 - 10.2 mg/dL 9.2 Phosphorus 2.7 - 4.8 mg/dL 3.3 Glucose 74 - 99 mg/dL 104 (H) BUN 7 - 21 mg/dL 17 Creatinine 0.58 - 0.96 mg/dL 0.66 Sodium 136 - 144 mmol/L 142 Potassium 3.7 - 5.1 mmol/L 4.3 Chloride 97 - 105 mmol/L 104 CO2 22 - 30 mmol/L 27 Anion Gap 9 - 18 mmol/L 11 eGFR- >60 eGFR-All Other Races . >60 Cholesterol, Total <200 mg/dL 177 Triglyceride <150 mg/dL 38 HDL Cholesterol >39 mg/dL 77 LDL Cholesterol <100 mg/dL 92 Non HDL Cholesterol <130 mg/dL 100 Fasting Time hrs 12 VLDL Cholesterol <30 mg/dL 8 TC:HDL Ratio <5.10 2.30 LDL:HDL Ratio <2.54 1.19 Iron 41 - 186 ug/dL 58 TIBC 232 - 386 ug/dL 319 Transferrin Saturation 15 - 57 % 18 TSH 0.270 - 4.200 uU/mL 0.791 Free T4 0.9 - 1.7 ng/dL 1.4 Free T3 2.3 - 4.1 pg/mL 3.0 Ferritin 14.7 - 205.1 ng/mL 164.0 Assessment and Plan Encounter Diagnosis ICD-10-CM 1. Acquired hypothyroidism E03.9 TSH BLD T4 FREE/FREE THYROX T3 FREE BLD 2. Elevated glucose R73.09 COMP METABOLIC PANEL HGB A1C 3. Class 3 severe obesity due to excess calories without serious comorbidity with body mass index (BMI) of 40.0 to 44.9 in adult ([facility]) E66.01 Z68.41 4. Dyslipidemia E78.5 LIPID PANEL BASIC 5. COVID-19 virus infection U07.1 residual post nasal drainage and throat irritation 6. Spinal stenosis of lumbar region with neurogenic claudication M48.062 7. Fibromyalgia M79.7 8. Medication management Z79.899 COMP METABOLIC PANEL CBC ASSESSMENT/PLAN: 1. Acquired hypothyroidism - ICD9: 244.9, ICD10: E03.9 (primary diagnosis) Hard for her to tell if euthyroid. Continue present management. Adjust dose as indicated by labs and symptoms if any, - TSH BLD - T4 FREE/FREE THYROX - T3 FREE BLD 2. Elevated glucose - ICD9: 790.29, ICD10: R73.09 Needs to keep working on diet and exercise with lifestyle changes for effective weight loss as wellas control of DM, and control of BP and lipids. - COMP METABOLIC PANEL - HGB A1C 3. Class 3 severe obesity due to excess calories without serious comorbidity with body mass index (BMI) of 40.0 to 44.9 in adult ([facility]) - ICD9: 278.01, V85.41, ICD10: E66.01, Z68.41 Weight increasing - Behavioral intervention - Discussed perceived barrier--not able to exercise. - Has been making healthy changes in diet. She will be more active in the garden plus continue taking care of granddaughter. Given information from Up to Date about exercise recommendations. Discussed eating healthy by making the best choice 80% of the time story. Also try eating protein and veggies for 3 days them see if able to limit simple carbs after that. 4. Dyslipidemia - ICD9: 272.4, ICD10: E78.5 - to be determined upon return of lab results - Continue current medication. - Encouraged following a low fat, low cholesterol diet. - Discussed the benefits of regular aerobic exercise and weight loss. - Encouraged following a low carbohydrate, healthy oil intake diet. - LIPID PANEL BASIC 5. COVID-19 virus infection - ICD9: 079.89, ICD10: U07.1 Noted some mild residual symptoms. Can treat symptomatically with OTC meds. Further evaluation and treatment as indicated. 6. Spinal stenosis of lumbar region with neurogenic claudication - ICD9: 724.03, ICD10: M48.062 Continue stretching exercises at least before bedtime and as needed. Can refer to pain management or spine center if gets severe. 7. Fibromyalgia - ICD9: 729.1, ICD10: M79.7 Continue present management. 8. Medication management - ICD9: V58.69, ICD10: Z79.899 - COMP METABOLIC PANEL - CBC Emilee Condon MD documented [facility] encounter[facility] History of Present illness Narrative* Sahara Boateng Jr., MD - 08/28/2021 5:05 PM EDT ESTABLISHED PATIENT VISIT CHIEF COMPLAINT: Follow Up HISTORY OF PRESENT ILLNESS: Priscilla Ramos is a 66 year old female, with a PMH significant for and per last office visit of 05/29/21: 1. RLS (restless legs syndrome) - ICD9: 333.94, ICD10: G25.81 (primary diagnosis) 2. Fibromyalgia - ICD9: 729.1, ICD10: M79.7 Sleep maintenance improved on gabapentin 400mg QHS, but still difficulties with sleep onset due to RLS symptoms. Possibly due to taking med too close to bedtime. Thus, will allow patient to increase gabapentin to 800mg QHS while also encouraging pt to take between 730-8PM. Pt with no side effects or ADRs. Otherwise sleeping though the night. Continue Trazodone 50mg QHS for now, but if increase ingabapentin allows for improved sleep onset, will attempt to d/c next visit. 3. Obstructive sleep apnea (adult) (pediatric) - ICD9: 327.23, ICD10: G47.33 Doing well except for mask leaks. As AHI controlled, will try to lower PAP setting to see if this helps with mask leaks. Currently on 17/13 cmH2O and will lower to 15/11 cmH2O. Pt agrees with plan. Reminded to clean and replace equipment regularly. Advised not to drive or operate heavy machinery when sleepy. PAP data download (17/13 cmH2O) shows pt to be using 90/90 days through 08/05/21. Avg use of 10 hours and 22 minutes. AHI is 1.6. 95% leak is 12.5 LPM. States sleep is better so long as takes 800mg of gabapentin 1 hour before bedtime. Can still feel along time to fall asleep but thinks might not be a good liquor rectifier of this. No RLS symptoms. Once asleep, rarely wakes during the night. Thinks more than likely asleep by 10PM and wakes by alarm at 630AM.Feels refreshed in AM. Still taking Trazodone 50mg QHS. Does not feel she needs more meds than she is taking. If takes gabapentin too late, then will take at least 1 hour to fall asleep, so on further thought, thinks she typically is falling asleep in 30 minutes with gabapentin. Went back to old FFM that is causing abrasion on bridge nose, due to other leaking and resulting inpt waking during the night. REVIEW OF SYSTEMS GENERAL:No weight loss, malaise or fevers. HEENT:Negative for frequent or significant headaches, No changes in hearing or vision, no nose bleeds or other nasal problems RESPIRATORY: Negative for cough, wheezing or shortness of breath. CARDIOVASCULAR: Negative for chest pain, leg swelling or palpitations. LAB/IMAGING: Those performed since patient's last visit have been reviewed. WBC (k/uL) Date Value 12/14/2020 5.92 RBC (m/uL) Date Value 12/14/2020 4.75 Hemoglobin (g/dL) Date Value 12/14/2020 14.7 Hematocrit (%) Date Value 12/14/2020 45.4 MCV (fL) Date Value 12/14/2020 95.6 MCH (pG) Date Value 12/14/2020 30.9 MCHC (g/dL) Date Value 12/14/2020 32.4 RDW-CV (%) Date Value 12/14/2020 12.9 Platelet Count (k/uL) Date Value 12/14/2020 298 MPV (fL) Date Value 12/14/2020 10.1 Glucose (mg/dL) Date Value 03/06/2021 104 (H) BUN (mg/dL) Date Value 03/06/2021 17 Creatinine (mg/dL) Date Value 03/06/2021 0.66 Sodium (mmol/L) Date Value 03/06/2021 142 Potassium (mmol/L) Date Value 03/06/2021 4.3 Chloride (mmol/L) Date Value 03/06/2021 104 CO2 (mmol/L) Date Value 03/06/2021 27 Protein, Total (g/dL) Date Value 12/14/2020 6.9 Albumin (g/dL) Date Value 03/06/2021 4.1 Calcium (mg/dL) Date Value 03/06/2021 9.2 Alkaline Phosphatase (U/L) Date Value 12/14/2020 70 Bilirubin, Total (mg/dL) Date Value 12/14/2020 0.4 AST (U/L) Date Value 12/14/2020 28 ALT (U/L) Date Value 12/14/2020 24 KELTON (no units) Date Value 08/21/2014 Positive (A) Rheumatoid Factor (IU/mL) Date Value 12/14/2020 13 Hep C Antibody IA (no units) Date Value 12/14/2020 Negative MEDICATIONS: CPAP Increase PAP setting to 17/13 cmH2O. levothyroxine (SYNTHROID) 25 mcg tablet Take 1 tablet by mouth once daily. gabapentin (NEURONTIN) 400 mg capsule Take 1 capsule 60-90 minutes before bedtime. If no side effects and symptoms persist, can increase to 2 capsules 60- 90 minutes before bedtime. betamethasone dipropionate 0.05 % ointment Apply to affected area twice daily. hydrOXYchloroQUINE (PLAQUENIL) 200 mg tablet Take 1 tablet by mouth twice daily. Take 200 mg by mouth twice daily. OTC NUTRITIONAL SUPPLEMENT Take 2 capsules by mouth twice daily. Fibro Care Bmxrj-9-DOC-EPA-Fish Oil (FISH OIL) 300-1,000 mg cap Take 1,000 mg by mouth twice daily. hyperimmune colostrum, bovine 200 mg tab Take 2 tablets by mouth twice daily. colestipol (COLESTID) 1 gram tablet Take 1-2 tablets by mouth once daily. As directed Ca/D3/mag ox/zinc/commercial helicopter pilot/jose/bor (CALCIUM 600-D3 PLUS, MAG-ZINC, ORAL) turmeric/turmeric ext/pepr ext (TURMERIC-TURMERIC EXT-PEPPER) 900-100-5 mg cap CPAP Bipap 17/13 cm H2O, Heat Humidity, suitable mask, [employer] supplies, opt Chinstrap, G47.33. cholecalciferol (VITAMIN D3) 2,000 unit tablet Take 2,000 Units by mouth once daily. FLUoxetine HCl (PROZAC) 40 mg capsule Take 1 capsule by mouth once daily. (Dr. Garcia) traZODone (DESYREL) 50 mg tablet Take 1 tablet by mouth daily at bedtime. CYANOCOBALAMIN, VITAMIN B-12, (VITAMIN B-12 ORAL) Take by mouth. buPROPion XL (WELLBUTRIN XL) 150 mg ORAL 24 hr tablet Take one(1) tablet daily. Biotin (NAIL-EX) 2,500 mcg ORAL Tab Take one(1) tablet daily. DAILY VITAMIN TAB Take one(1) tablet daily. HISTORIES PAST MEDICAL HISTORY Diagnosis Date Abnormal mammogram, unspecified 06/27/2006 Acquired hypothyroidism 07/04/2017 Calculus of gallbladder with chronic cholecystitis without obstruction 08/01/2015 Corns and callosities 01/24/2014 Diarrhea Dysphagia 05/27/2015 feeling like food sits in bottom of esophagus if eats heavier than usual meal Dysthymic disorder Depression (non-psychotic) Elevated antinuclear antibody (KELTON) level 08/25/2014 Internal hemorrhoids without mention of complication Myalgia and myositis, unspecified FIBROMYALGIA Obesity, unspecified Obesity Obstructive sleep apnea DME [facility]IN [facility]G (Right) 02/20/2005 Temporomandibular joint disorders, unspecified 11/23/2006 FAMILY HISTORY Problem Relation Age of Onset Diabetes Mother late in life at 75 Stroke Mother x3 Cancer Father myeloma (from immunesuppressants) at age 80 of chf and perf. bowel other (ESRD) Father had sudden renal failure; had kidney transplant at 68yo Thyroid Brother Hypertension Son No Known Problems Son SOCIAL HISTORY Social History Tobacco Use Smoking status: Never Smoker Smokeless tobacco: Never Used Vaping Use Vaping Use: Never used Substance Use Topics Alcohol use: Yes Alcohol/week: 18.0 standard drinks Types: 18 Glasses of wine per week Comment: wine with supper Drug use: No PHYSICAL EXAMINATION There were no vitals taken for this visit. GENERAL EXAM: General appearance: NAD, pleasant. HEENT: NC/AT, nasal congestion absent, no oral lesions, membranes moist. Lungs: CTA bilaterally. CV: RRR nl S1, S2. Skin: Cool to touch. NEUROLOGICAL EXAM: General: Awake, alert, oriented x3 (person,place,time), speech fluent, no dysarthria; comprehension, naming, repetition intact. CN: PERRL, EOMI and without nystagmus, VFF to confrontation, facial sensation and strength are normal and symmetric, hearing is intact to finger rub bilaterally, palate and tongue movements are intact and symmetric. SCM and trapezius strength normal. Motor: Normal tone, bulk and strength (5/5) bilaterally (throughout extremities x4). Coordination: FNF, NINA, HTS intact. No tremors. Sensation: LT intact throughout. No evidence of neglect. Gait: Stable with normal stride and arm swing. Assessment and Plan: ASSESSMENT/PLAN: 1. RLS (restless legs syndrome) - ICD9: 333.94, ICD10: G25.81 (primary diagnosis) 2. Fibromyalgia - ICD9: 729.1, ICD10: M79.7 Sleeping much better and pt would prefer not to add meds at this time. Will continue gabapentin 800mg 1-2 hours before bedtime as above. However, I would like pt to try and stop Trazodone for couple of nights to see if actually helping her sleep. If notices no change in sleep after stopping Trazodone then would not restart. However, if notes worsening sleep quality or insomnia, then to restart Trazodone immediately. Pt understanding of and agrees with plan. 3. NELI on CPAP - ICD9: 327.23, V46.8, ICD10: G47.33, Z99.89 Doing well on PAP both subjectively and objectively per PAP data download. Only complaint is soreness on bridge of nose as discussed above. Reviewed options with pt. She would prefer to not change mask. Patient considering trial of Remzzs - demonstrated this and similar options on WWW. Reminded to clean and replace equipment regularly - avoid ozone home care physical therapist. Advised not to drive or operate heavy machinery when sleepy. Follow up 6 months or sooner prn. Sahara Boateng MD I spent a total of 30+ minutes on the date of the service which included preparing to see the patient, [id number] patient care, completing clinical documentation, obtaining and/or reviewing separately obtained history, performing a medically appropriate examination, counseling and educating the pa tient/family/caregiver, ordering medications, tests, or procedures, independently interpreting results (not separately reported) and communicating results to the patient/family/caregiver. PDMP website checked and validated. All prescriptions have been APPROPRIATELY filled. No suspiciousactivity was identified. 08/28/2021 by Sahara Boateng MD [facility] Miscellaneous Notes* Telephone Encounter - Rosina Li LPN - 08/14/2021 2:15 PM EDT Patient notified of providers message and verbalized understanding. * Telephone Encounter - Kasie Limon APRN.JOANN - 08/14/2021 12:48 PM EDT She should complete supportive care at home, avoid contact with others to prevent spread. Can complete visit if needed/would like to. or [place] on demand visit. Will send COVID-19 supportive care and home isolation information to her via [employer]. * Telephone Encounter - Renata West RN - 08/14/2021 11:45 AM EDT Patient calls and wanted provider to know that she tested positive for covid yesterday morning via home test. Patient symptoms are that she has a head cold. Renata West RN documented in [facility] encounterSt[facility] History of Present illness Narrative* Darian Heart RT(R) - 03/08/2021 5:50 PM EST Radiology Service Progress Note PATIENT NAME: Priscilla Ramos DATE OF SERVICE: March 08, 2021 TIME: 6:00 PM PATIENT IDENTITY VERIFICATION COMPLETED USING TWO (2) IDENTIFIERS: Name and Date of confirmedby patient verbally. FALL SCREENING: Has the patient had 2 falls in the last year or 1 fall with injury or currently using an Ambulatory Assistive Device (Walker, Cane, Wheelchair, Crutches, etc.)? No PATIENT GENDER DATA: Female. status: : No status: NO. PATIENT RELEVANT IMPLANT DATA REVIEWED: Not Applicable RADIOLOGY DEPARTMENT: General X-ray: Exam(s) Completed: Chest X-Ray PERIPHERAL IV DATA: Not applicable SIGNED BY: RT Jamin(R) March 08, 2021 6:00 PM documented in this encounterSt. [facility] History of Present illness Narrative* Shayla Samaniego RT(R) - 12/14/2020 5:15 PM EDT Radiology Service Progress Note PATIENT NAME: Priscilla Ramos DATE OF SERVICE: December 14, 2020 TIME: 5:50 PM PATIENT IDENTITY VERIFICATION COMPLETED USING TWO (2) IDENTIFIERS: Name and Date of confirmedby patient verbally. FALL SCREENING: Has the patient had 2 falls in the last year or 1 fall with injury or currently using an Ambulatory Assistive Device (Walker, Cane, Wheelchair, Crutches, etc.)? No PATIENT GENDER DATA: Female. status: : No status: NO. PATIENT RELEVANT IMPLANT DATA REVIEWED: Yes RADIOLOGY DEPARTMENT: General X-ray: Exam(s) Completed: Upper Extremity X- Ray(s): Hand, bilateral PERIPHERAL IV DATA: Not applicable SIGNED BY: RT Sal(R) December 14, 2020 5:50 PM documented in this encounterSt. [facility]08[facility] History of Past illness Narrative* Problem Noted Date Resolved Date Palpitations 11/23/2006 01/29/2014 documented as of this encounter (statuses as of 08/14/2021) [facility] Narrative* Problem Noted Date Resolved Date Palpitations 11/23/2006 01/29/2014 documented as of this encounter (statuses as of 08/28/2021) [address]04-2007 History of Past illness Narrative* Problem Noted Date Resolved Date Palpitations 11/23/2006 01/29/2014 documented as of this encounter (statuses as of 09/05/2021) [address]04-2007 History of Past illness Narrative* Problem Noted Date Resolved Date Palpitations 11/23/2006 01/29/2014 documented as of this encounter (statuses as of 09/12/2021) [address]04-2007 History of Past illness Narrative* Problem Noted Date Resolved Date Palpitations 11/23/2006 01/29/2014 documented as of this encounter (statuses as of 09/22/2021) [address]04[address]2007 History of Past illness Narrative* Problem Noted Date Resolved Date Palpitations 11/23/2006 01/29/2014 documented as of this encounter (statuses as of 09/29/2021) [address]04[address]2007 History of Past illness Narrative* Problem Noted Date Resolved Date Palpitations 11/23/2006 01/29/2014 documented as of this encounter (statuses as of 10/05/2021) [address]04[address]2007 History of Past illness Narrative* Problem Noted Date Resolved Date Palpitations 11/23/2006 01/29/2014 documented as of this encounter (statuses as of 12/11/2021) [address]2007 History of Past illness Narrative* Problem Noted Date Resolved Date Palpitations 11/23/2006 01/29/2014 documented as of this encounter (statuses as of 12/11/2021) [address]04[address]2007 History of Past illness Narrative* Problem Noted Date Resolved Date Palpitations 11/23/2006 01/29/2014 documented as of this encounter (statuses as of 01/08/2022) [address]04[address]2007 History of Past illness Narrative* Problem Noted Date Resolved Date Palpitations 11/23/2006 01/29/2014 documented as of this encounter (statuses as of 01/24/2022) [address]04[address]2007 History of Past illness Narrative* Problem Noted Date Resolved Date Palpitations 11/23/2006 01/29/2014 documented as of this encounter (statuses as of 01/31/2022) [address]04[address]2007 History of Past illness Narrative* Problem Noted Date Resolved Date Palpitations 11/23/2006 01/29/2014 documented as of this encounter (statuses as of 2022) [address]04[address]2007 History of Past illness Narrative* Problem Noted Date Resolved Date Palpitations 11/23/2006 01/29/2014 documented as of this encounter (statuses as of 02/16/2022) [address]04[address]2007 History of Past illness Narrative* Problem Noted Date Resolved Date Palpitations 11/23/2006 01/29/2014 documented as of this encounter (statuses as of 02/21/2022) [address]04[address]2007 History of Past illness Narrative* Problem Noted Date Resolved Date Palpitations 11/23/2006 01/29/2014 documented as of this encounter (statuses as of 02/22/2022) [address]04[address]2007 History of Past illness Narrative* Problem Noted Date Resolved Date Palpitations 11/23/2006 01/29/2014 documented as of this encounter (statuses as of 02/28/2022) [address]2007 History of Past illness Narrative* Problem Noted Date Resolved Date Palpitations 11/23/2006 01/29/2014 documented as of this encounter (statuses as of 03/02/2022) [address]04[address]2007 History of Past illness Narrative* Problem Noted Date Resolved Date Palpitations 11/23/2006 01/29/2014 documented as of this encounter (statuses as of 03/02/2022) [address]04[address]2007 History of Past illness Narrative* Problem Noted Date Resolved Date Palpitations 11/23/2006 01/29/2014 documented as of this encounter (statuses as of 03/09/2022) [address]04[address]2007 History of Past illness Narrative* Problem Noted Date Resolved Date Palpitations 11/23/2006 01/29/2014 documented as of this encounter (statuses as of 03/09/2022) [address]04[address]2007 History of Past illness Narrative* Problem Noted Date Resolved Date Palpitations 11/23/2006 01/29/2014 documented as of this encounter (statuses as of 03/12/2022) [address]2007 History of Past illness Narrative* Problem Noted Date Resolved Date Palpitations 11/23/2006 01/29/2014 documented as of this encounter (statuses as of 03/23/2022) [address]04[address]2007 History of Past illness Narrative* Problem Noted Date Resolved Date Palpitations 11/23/2006 01/29/2014 documented as of this encounter (statuses as of 03/30/2022) [address]04[address]2007 History of Past illness Narrative* Problem Noted Date Resolved Date Palpitations 11/23/2006 01/29/2014 documented as of this encounter (statuses as of 04/28/2022) [address]04[address]2007 History of Past illness Narrative* Problem Noted Date Resolved Date Palpitations 11/23/2006 01/29/2014 documented as of this encounter (statuses as of 05/28/2022) [address]04[address]2007 History of Past illness Narrative* Problem Noted Date Resolved Date Palpitations 11/23/2006 01/29/2014 documented as of this encounter (statuses as of 05/29/2022) [address] History of Past illness Narrative* Problem Noted Date Resolved Date Palpitations 11/23/2006 01/29/2014 documented as of this encounter (statuses as of 06/11/2022) [address] History of Past illness Narrative* Problem Noted Date Resolved Date Palpitations 11/23/2006 01/29/2014 documented as of this encounter (statuses as of 06/26/2022) [address] History of Past illness Narrative* Problem Noted Date Resolved Date Palpitations 11/23/2006 01/29/2014 documented as of this encounter (statuses as of 07/10/2022) [address] History of Past illness Narrative* Problem Noted Date Resolved Date Palpitations 11/23/2006 01/29/2014 documented as of this encounter (statuses as of 07/24/2022) [address] History of Past illness Narrative* Problem Noted Date Resolved Date Palpitations 11/23/2006 01/29/2014 documented as of this encounter (statuses as of 07/25/2022) [address] History of Past illness Narrative* Problem Noted Date Resolved Date Palpitations 11/23/2006 01/29/2014 documented as of this encounter (statuses as of 08/02/2022) [address] History of Past illness Narrative* Problem Noted Date Resolved Date Palpitations 11/23/2006 01/29/2014 documented as of this encounter (statuses as of 08/29/2022) [address] History of Past illness Narrative* Problem Noted Date Resolved Date Palpitations 11/23/2006 01/29/2014 documented as of this encounter (statuses as of 08/30/2022) [address] History of Past illness Narrative* Problem Noted Date Resolved Date Palpitations 11/23/2006 01/29/2014 documented as of this encounter (statuses as of 09/03/2022) [address] History of Past illness Narrative* Problem Noted Date Resolved Date Palpitations 11/23/2006 01/29/2014 documented as of this encounter (statuses as of 10/10/2022) [address] History of Past illness Narrative* Problem Noted Date Diagnosed Date Resolved Date Palpitations 11/23/2006 01/29/2014 documented as of this encounter (statuses as of 11/23/2022) [address] History of Past illness Narrative* Problem Noted Date Diagnosed Date Resolved Date Palpitations 11/23/2006 01/29/2014 documented as of this encounter (statuses as of 11/26/2022) [address] History of Past illness Narrative* Problem Noted Date Diagnosed Date Resolved Date Palpitations 11/23/2006 01/29/2014 documented as of this encounter (statuses as of 11/26/2022) [address] History of Past illness Narrative* Problem Noted Date Diagnosed Date Resolved Date Palpitations 11/23/2006 01/29/2014 documented as of this encounter (statuses as of 12/12/2022) [address] History of Past illness Narrative* Problem Noted Date Diagnosed Date Resolved Date Palpitations 11/23/2006 01/29/2014 documented as of this encounter (statuses as of 12/17/2022) [address] History of Past illness Narrative* Problem Noted Date Diagnosed Date Resolved Date Palpitations 11/23/2006 01/29/2014 documented as of this encounter (statuses as of 02/02/2023) [address] History of Past illness Narrative* Problem Noted Date Diagnosed Date Resolved Date Palpitations 11/23/2006 01/29/2014 documented as of this encounter (statuses as of 02/02/2023) [address] History of Past illness Narrative* Problem Noted Date Diagnosed Date Resolved Date Palpitations 11/23/2006 01/29/2014 documented as of this encounter (statuses as of 02/08/2023) [address] History of Past illness Narrative* Problem Noted Date Diagnosed Date Resolved Date Palpitations 11/23/2006 01/29/2014 documented as of this encounter (statuses as of 02/11/2023) [address] History of Past illness Narrative* Problem Noted Date Diagnosed Date Resolved Date Palpitations 11/23/2006 01/29/2014 documented as of this encounter (statuses as of 02/19/2023) [address] History of Past illness Narrative* Problem Noted Date Diagnosed Date Resolved Date Palpitations 11/23/2006 01/29/2014 documented as of this encounter (statuses as of 02/21/2023) [address] History of Past illness Narrative* Problem Noted Date Diagnosed Date Resolved Date Palpitations 11/23/2006 01/29/2014 documented as of this encounter (statuses as of 02/24/2023) [address] History of Past illness Narrative* Problem Noted Date Diagnosed Date Resolved Date Palpitations 11/23/2006 01/29/2014 documented as of this encounter (statuses as of 02/24/2023) [address] History of Past illness Narrative* Problem Noted Date Diagnosed Date Resolved Date Palpitations 11/23/2006 01/29/2014 documented as of this encounter (statuses as of 02/24/2023) [address] History of Past illness Narrative* Problem Noted Date Diagnosed Date Resolved Date Palpitations 11/23/2006 01/29/2014 documented as of this encounter (statuses as of 02/24/2023) [address] History of Past illness Narrative* Problem Noted Date Diagnosed Date Resolved Date Palpitations 11/23/2006 01/29/2014 documented as of this encounter (statuses as of 02/24/2023) [address] History of Past illness Narrative* Problem Noted Date Diagnosed Date Resolved Date Palpitations 11/23/2006 01/29/2014 documented as of this encounter (statuses as of 02/26/2023) [address] History of Past illness Narrative* Problem Noted Date Diagnosed Date Resolved Date Palpitations 11/23/2006 01/29/2014 documented as of this encounter (statuses as of 03/01/2023) [address] History of Past illness Narrative* Problem Noted Date Diagnosed Date Resolved Date Palpitations 11/23/2006 01/29/2014 documented as of this encounter (statuses as of 03/08/2023) [address] History of Past illness Narrative* Problem Noted Date Diagnosed Date Resolved Date Palpitations 11/23/2006 01/29/2014 documented as of this encounter (statuses as of 03/11/2023) [address] History of Past illness Narrative* Problem Noted Date Diagnosed Date Resolved Date Palpitations 11/23/2006 01/29/2014 documented as of this encounter (statuses as of 03/12/2023) [address] History of Past illness Narrative* Problem Noted Date Diagnosed Date Resolved Date Palpitations 11/23/2006 01/29/2014 documented as of this encounter (statuses as of 03/19/2023) [address] History of Past illness Narrative* Problem Noted Date Diagnosed Date Resolved Date Palpitations 11/23/2006 01/29/2014 documented as of this encounter (statuses as of 03/23/2023) [address] History of Past illness Narrative* Problem Noted Date Diagnosed Date Resolved Date Palpitations 11/23/2006 01/29/2014 documented as of this encounter (statuses as of 03/27/2023) [address] History of Past illness Narrative* Problem Noted Date Diagnosed Date Resolved Date Palpitations 11/23/2006 01/29/2014 documented as of this encounter (statuses as of 04/01/2023) [address] History of Past illness Narrative* Problem Noted Date Diagnosed Date Resolved Date Palpitations 11/23/2006 01/29/2014 documented as of this encounter (statuses as of 04/02/2023) [address] History of Past illness Narrative* Problem Noted Date Diagnosed Date Resolved Date Palpitations 11/23/2006 01/29/2014 documented as of this encounter (statuses as of 04/04/2023) [address] History of Past illness Narrative* Problem Noted Date Diagnosed Date Resolved Date Palpitations 11/23/2006 01/29/2014 documented as of this encounter (statuses as of 04/05/2023) [address] History of Past illness Narrative* Problem Noted Date Diagnosed Date Resolved Date Palpitations 11/23/2006 01/29/2014 documented as of this encounter (statuses as of 04/06/2023) [address] History of Past illness Narrative* Problem Noted Date Diagnosed Date Resolved Date Palpitations 11/23/2006 01/29/2014 documented as of this encounter (statuses as of 05/23/2023) [address] History of Past illness Narrative* Problem Noted Date Diagnosed Date Resolved Date Palpitations 11/23/2006 01/29/2014 documented as of this encounter (statuses as of 05/24/2023) [address] History of Past illness Narrative* Problem Noted Date Diagnosed Date Resolved Date Palpitations 11/23/2006 01/29/2014 documented as of this encounter (statuses as of 05/31/2023) [address] History of Past illness Narrative* Problem Noted Date Diagnosed Date Resolved Date Palpitations 11/23/2006 01/29/2014 documented as of this encounter (statuses as of 07/15/2023) [address] History of Past illness Narrative* Problem Noted Date Diagnosed Date Resolved Date Palpitations 11/23/2006 01/29/2014 documented as of this encounter (statuses as of 07/15/2023) [address] History of Past illness Narrative* Problem Noted Date Diagnosed Date Resolved Date Palpitations 11/23/2006 01/29/2014 documented as of this encounter (statuses as of 07/25/2023) [address] History of Past illness Narrative* Problem Noted Date Diagnosed Date Resolved Date Palpitations 11/23/2006 01/29/2014 documented as of this encounter (statuses as of 07/25/2023) [address] History of Past illness Narrative* Problem Noted Date Diagnosed Date Resolved Date Palpitations 11/23/2006 01/29/2014 documented as of this encounter (statuses as of 08/02/2023) [facility] Diagnosis RLS (restless legs syndrome)- Primary Restless legs syndrome (RLS) Fibromyalgia Mylagia and myositis, unspecified NELI on CPAP Obstructive sleep apnea (adult) (pediatric) [facility] Diagnosis Acquired hypothyroidism- Primary Unspecified hypothyroidism Elevated glucose Other abnormal glucose Class 3 severe obesity due to excess calories without serious comorbidity with body mass index (BMI) of 40.0 to 44.9 in adult (HCC) Dyslipidemia Other and unspecified hyperlipidemia COVID-19 virus infection Spinal stenosis of lumbar region with neurogenic claudication Spinal stenosis, lumbar region, with neurogenic claudication Fibromyalgia Mylagia and myositis, unspecified Medication management Encounter for long-term (current) use of other medications [facility] Diagnosis Inflammatory arthritis- Primary Unspecified inflammatory polyarthropathy Fibromyalgia Mylagia and myositis, unspecified Encounter for long-term (current) use of medications Encounter for long-term (current) use of other medications [facility] Diagnosis Sinus pressure- Primary Other diseases of nasal cavity and sinuses URI, acute Acute upper respiratory infections of unspecified site [facility] Diagnosis Chronic pain of both shoulders- Primary Pain in joint, shoulder region Inflammatory arthritis Unspecified inflammatory polyarthropathy Osteoarthritis of multiple joints, unspecified osteoarthritis type Spinal stenosis, lumbar region, without neurogenic claudication Lumbar spondylosis Lumbosacral spondylosis without myelopathy Fibromyalgia Mylagia and myositis, unspecified Pain in joint, multiple sites [facility] Diagnosis Palpitation- Primary Palpitations Racing heart beat Tachycardia, unspecified Acquired hypothyroidism Unspecified hypothyroidism Encounter for long-term current use of medication [facility]* Diagnosis Chronic pain of both shoulders- Primary Pain in joint, shoulder region [facility] Diagnosis Chronic pain of both shoulders- Primary Pain in joint, shoulder region [facility]* Diagnosis GARCIA (dyspnea on exertion)- Primary Other dyspnea and respiratory abnormality Intermittent palpitations Sinus tachycardia by electrocardiogram Tachycardia, unspecified Bilateral leg edema Edema Encounter for immunization Need for other specified prophylactic vaccination against single bacterial disease [facility]* Diagnosis RLS (restless legs syndrome) Restless legs syndrome (RLS) Fibromyalgia Mylagia and myositis, unspecified [facility]* Diagnosis Thyroid nodule- Primary Nontoxic uninodular goiter Encounter for screening mammogram for breast cancer Well woman exam with routine gynecological exam Routine gynecological examination [facility] this [facility]* Diagnosis Chronic pain of both shoulders- Primary Pain in joint, shoulder region [facility]* Diagnosis Thyroid nodule greater than or equal to 1 cm in diameter incidentally noted on imaging study- Primary Breast nodule Other (abnormal) findings on radiological examination of breast Abnormal finding on breast imaging Other (abnormal) findings on radiological examination of breast [facility]* Diagnosis Diastolic dysfunction without heart failure- Primary GARCIA (dyspnea on exertion) Other dyspnea and respiratory abnormality Intermittent palpitations Osteopenia of multiple sites Elevated BP without diagnosis of hypertension Class 3 severe obesity due to excess calories with body mass index (BMI) of 40.0 to 44.9 in adult, unspecified whether serious comorbidity present (HCC) Thyroid nodule greater than or equal to 1 cm in diameter incidentally noted on imaging study Breast nodule Other (abnormal) findings on radiological examination of breast [facility]* Diagnosis Mass of right breast, unspecified quadrant- Primary [facility]* Diagnosis Thyroid nodule greater than or equal to 1 cm in diameter incidentally noted on imaging study- Primary [facility]* Diagnosis Chronic pain of both shoulders- Primary Pain in joint, shoulder region [facility] this [facility] noteNo assessment information availableWUniversity [facility]als [facility] Work Phone: Evaluation note* Diagnosis RLS (restless legs syndrome) Restless legs syndrome (RLS) Fibromyalgia Mylagia and myositis, unspecified [facility] this encounter [facility]* Diagnosis Onset Date Resolution Status GARCIA (dyspnea on exertion) ac [place] Essential hypertension [facility] Work Phone: Evaluation note* Diagnosis History of colonic polyps- Primary Personal history of colonic polyps Colon cancer screening Special screening for malignant neoplasms, colon documented [facility]* Diagnosis Thyroid nodule greater than or equal to 1 cm in diameter incidentally noted on imaging study- Primary Multiple thyroid nodules Nontoxic multinodular goiter [facility]* Diagnosis Onset Date Resolution Status GARCIA (dyspnea on exertion) [place] Essential hypertension chron ic Claudication acute Family history of CVA acute [id number] chronic Essential hypertension chron ic [facility] Work Phone: Evaluation note* Diagnosis Wrist injury, left, initial encounter- Primary documented in this encounter [facility] note* Diagnosis Pre-op evaluation- Primary Preoperative examination, unspecified Encounter for screening for malignant neoplasm of colon Special screening for malignant neoplasms, colon Hypertension, unspecified type Coronary artery disease involving [place] heart without angina pectoris, unspecified vessel or lesion type Fibromyalgia Mylagia and myositis, unspecified Obstructive sleep apnea (adult) (pediatric) Acquired hypothyroidism Unspecified hypothyroidism Class 3 severe obesity due to excess calories without serious comorbidity with body mass index (BMI) of 40.0 to 44.9 in adult (HCC) documented in this encounter [facility] note* Diagnosis Encounter for screening for malignant neoplasm of colon- Primary Special screening for malignant neoplasms, colon History of colonic polyps Personal history of colonic polyps [facility]* Diagnosis RLS (restless legs syndrome) Restless legs syndrome (RLS) Fibromyalgia Mylagia and myositis, unspecified documented in this encounter [facility] note* Diagnosis Tubular adenoma of colon- Primary Benign neoplasm of colon documented in this encounter [facility] note* Diagnosis Sprain of left wrist, subsequent encounter- Primary Coronary artery disease involving [place] coronary artery of [place] heart without angina pectoris Post-cholecystectomy syndrome Postcholecystectomy syndrome Loose stools Abnormal feces Acquired hypothyroidism Unspecified hypothyroidism Vitamin D deficiency Unspecified vitamin D deficiency Encounter for long-term current use of medication Class 3 severe obesity due to excess calories with body mass index (BMI) of 40.0 to 44.9 in adult, unspecified whether serious comorbidity present (HCC) documented in this encounter [facility] note* Diagnosis Inflammatory arthritis- Primary Unspecified inflammatory polyarthropathy Osteoarthritis of multiple joints, unspecified osteoarthritis type Fibromyalgia Mylagia and myositis, unspecified Lumbar spondylosis Lumbosacral spondylosis without myelopathy Osteoporosis, post menopausal Low back pain without sciatica, unspecified back pain laterality, unspecified chronicity [facility] Diagnosis Myalgias- Primary Chest tightness Other chest pain Bilateral lower extremity edema Edema Muscle weakness Muscle weakness (generalized) Shortness of breath Fatigue, unspecified type Coronary artery disease involving [place] heart without angina pectoris, unspecified vessel or lesion type [facility] this [facility]* Diagnosis RLS (restless legs syndrome) Restless legs syndrome (RLS) Fibromyalgia Mylagia and myositis, unspecified [facility] this [facility]* Diagnosis Coronary artery disease involving [place] coronary artery of [place] heart without angina pectoris- Primary Dyslipidemia Other and unspecified hyperlipidemia Class 3 severe obesity due to excess calories with body mass index (BMI) of 40.0 to 44.9 in adult, unspecified whether serious comorbidity present (HCC) Depression, recurrent (HCC) Major depressive disorder, recurrent episode, unspecified Intermittent claudication (HCC) Peripheral vascular disease, unspecified Left leg numbness Disturbance of skin sensation Acquired hypothyroidism Unspecified hypothyroidism [facility] this [facility]* Diagnosis Lumbar spondylosis Lumbosacral spondylosis without myelopathy Low back pain without sciatica, unspecified back pain laterality, unspecified chronicity [facility] this [facility]* Diagnosis Lumbar spondylosis Lumbosacral spondylosis without myelopathy Low back pain without sciatica, unspecified back pain laterality, unspecified chronicity Chronic bilateral low back pain with left-sided sciatica [facility] this [facility]* Diagnosis Lumbar spondylosis- Primary Lumbosacral spondylosis without myelopathy Chronic bilateral low back pain with left-sided sciatica [facility] this [facility]* Diagnosis Lumbar spondylosis- Primary Lumbosacral spondylosis without myelopathy Chronic bilateral low back pain with left-sided sciatica [facility] Diagnosis Bilateral lower extremity edema Edema GARCIA (dyspnea on exertion) Other dyspnea and respiratory abnormality Intermittent palpitations documented [facility] this [facility]* Diagnosis Breast nodule Other (abnormal) findings on radiological examination of breast Abnormal finding on breast imaging Other (abnormal) findings on radiological examination of breast [facility]* Diagnosis Osteopenia of neck of left femur Encounter for screening for osteoporosis Special screening for osteoporosis [facility] this [facility]* Diagnosis Breast nodule Other (abnormal) findings on radiological examination of breast Abnormal finding on breast imaging Other (abnormal) findings on radiological examination of breast documented [facility]* Diagnosis Thyroid nodule greater than or equal to 1 cm in diameter incidentally noted on imaging study [facility] this [facility]* Diagnosis Lumbar spondylosis- Primary Lumbosacral spondylosis without myelopathy Chronic bilateral low back pain with left-sided sciatica [facility] this [facility]* Diagnosis Lumbar spondylosis- Primary Lumbosacral spondylosis without myelopathy Chronic bilateral low back pain with left-sided sciatica [facility] this [facility]* Diagnosis Lumbar spondylosis- Primary Lumbosacral spondylosis without myelopathy Chronic bilateral low back pain with left-sided sciatica [facility] Diagnosis Lumbar spondylosis- Primary Lumbosacral spondylosis without myelopathy Chronic bilateral low back pain with left-sided sciatica [facility]* Diagnosis NELI on CPAP- Primary Obstructive sleep apnea (adult) (pediatric) RLS (restless legs syndrome) Restless legs syndrome (RLS) Fibromyalgia Mylagia and myositis, unspecified Malaise and fatigue Other malaise and fatigue Excessive daytime sleepiness Chronic insomnia Insomnia, unspecified [facility]* Diagnosis RLS (restless legs syndrome) Restless legs syndrome (RLS) Fibromyalgia Mylagia and myositis, unspecified [facility]* Diagnosis Multiple thyroid nodules- Primary Nontoxic multinodular goiter [facility] Diagnosis Acquired hypothyroidism- Primary Unspecified hypothyroidism Neck pain Cervicalgia Post-cholecystectomy syndrome Postcholecystectomy syndrome Loose stools Abnormal feces Sleep related teeth grinding/gritting Sleep related bruxism Dyslipidemia Other and unspecified hyperlipidemia Class 3 severe obesity due to excess calories with body mass index (BMI) of 40.0 to 44.9 in adult, unspecified whether serious comorbidity present (HCC) Depression, recurrent (HCC) Major depressive disorder, recurrent episode, unspecified Encounter for immunization Need for other specified prophylactic vaccination against single bacterial disease [facility] Diagnosis Encounter for screening mammogram for breast cancer [facility] this 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* Diagnosis Throat irritation- Primary Other diseases of pharynx, not elsewhere classified Neck pain Cervicalgia Dysphagia, unspecified type [facility] this [facility]* Diagnosis Spinal stenosis of lumbar region with neurogenic claudication- Primary Spinal stenosis, lumbar region, with neurogenic claudication Spinal stenosis of lumbar region without neurogenic claudication Spinal stenosis, lumbar region, without neurogenic claudication Weakness of left lower extremity [facility] this [facility] Diagnosis Spinal stenosis of lumbar region without neurogenic claudication Spinal stenosis, lumbar region, without neurogenic claudication Weakness of left lower extremity [facility] Diagnosis Encounter for screening mammogram for breast cancer [facility] this [facility]* Diagnosis Pre-op evaluation- Primary Preoperative examination, unspecified Encounter for screening for malignant neoplasm of colon Special screening for malignant neoplasms, colon Hypertension, unspecified type Coronary artery disease involving [place] heart without angina pectoris, unspecified vessel or lesion type Fibromyalgia Mylagia and myositis, unspecified Obstructive sleep apnea (adult) (pediatric) Acquired hypothyroidism Unspecified hypothyroidism Class 3 severe obesity due to excess calories without serious comorbidity with body mass index (BMI) of 40.0 to 44.9 in adult ([facility]) Medicare annual wellness visit, subsequent- Primary Routine general medical examination at a health care facility Acquired hypothyroidism Unspecified hypothyroidism Vitamin D deficiency Unspecified vitamin D deficiency Class 3 severe obesity due to excess calories with body mass index (BMI) of 40.0 to 44.9 in adult, unspecified whether serious comorbidity present ([facility]) TMJ (temporomandibular joint syndrome) Temporomandibular joint disorders, unspecified Encounter for screening examination for other mental health and behavioral disorders [facility] Diagnosis Pre-op evaluation- Primary Preoperative examination, unspecified Encounter for screening for malignant neoplasm of colon Special screening for malignant neoplasms, colon Hypertension, unspecified type Coronary artery disease involving [place] heart without angina pectoris, unspecified vessel or lesion type Fibromyalgia Mylagia and myositis, unspecified Obstructive sleep apnea (adult) (pediatric) Acquired hypothyroidism Unspecified hypothyroidism Class 3 severe obesity due to excess calories without serious comorbidity with body mass index (BMI) of 40.0 to 44.9 in adult ([facility]) NELI on CPAP- Primary Obstructive sleep apnea (adult) (pediatric) RLS (restless legs syndrome) Restless legs syndrome (RLS) Fibromyalgia Mylagia and myositis, unspecified Chronic insomnia Insomnia, unspecified Class 3 severe obesity with body mass index (BMI) of 40.0 to 44.9 in adult, unspecified obesity type, unspecified whether serious comorbidity present ([facility]) Spinal stenosis of lumbar region, unspecified whether neurogenic claudication present [facility]* Diagnosis Pre-op evaluation- Primary Preoperative examination, unspecified Encounter for screening for malignant neoplasm of colon Special screening for malignant neoplasms, colon Hypertension, unspecified type Coronary artery disease involving [place] heart without angina pectoris, unspecified vessel or lesion type Fibromyalgia Mylagia and myositis, unspecified Obstructive sleep apnea (adult) (pediatric) Acquired hypothyroidism Unspecified hypothyroidism Class 3 severe obesity due to excess calories without serious comorbidity with body mass index (BMI) of 40.0 to 44.9 in adult ([facility]) Spinal stenosis of lumbar region with neurogenic claudication Spinal stenosis, lumbar region, with neurogenic claudication Spinal stenosis of lumbar region without neurogenic claudication Spinal stenosis, lumbar region, without neurogenic claudication Weakness of left lower extremity documented in this encounter [facility] note* Diagnosis Pre-op evaluation- Primary Preoperative examination, unspecified Encounter for screening for malignant neoplasm of colon Special screening for malignant neoplasms, colon Hypertension, unspecified type Coronary artery disease involving [place] heart without angina pectoris, unspecified vessel or lesion type Fibromyalgia Mylagia and myositis, unspecified Obstructive sleep apnea (adult) (pediatric) Acquired hypothyroidism Unspecified hypothyroidism Class 3 severe obesity due to excess calories without serious comorbidity with body mass index (BMI) of 40.0 to 44.9 in adult ([facility]) Stiffness of hand joint, unspecified laterality [facility]* Diagnosis Pre-op evaluation- Primary Preoperative examination, unspecified Encounter for screening for malignant neoplasm of colon Special screening for malignant neoplasms, colon Hypertension, unspecified type Coronary artery disease involving [place] heart without angina pectoris, unspecified vessel or lesion type Fibromyalgia Mylagia and myositis, unspecified Obstructive sleep apnea (adult) (pediatric) Acquired hypothyroidism Unspecified hypothyroidism Class 3 severe obesity due to excess calories without serious comorbidity with body mass index (BMI) of 40.0 to 44.9 in adult ([facility]) Pain Generalized pain [facility]* Diagnosis Wrist injury, left, initial encounter Pre-op evaluation- Primary Preoperative examination, unspecified Encounter for screening for malignant neoplasm of colon Special screening for malignant neoplasms, colon Hypertension, unspecified type Coronary artery disease involving [place] heart without angina pectoris, unspecified vessel or lesion type Fibromyalgia Mylagia and myositis, unspecified Obstructive sleep apnea (adult) (pediatric) Acquired hypothyroidism Unspecified hypothyroidism Class 3 severe obesity due to excess calories without serious comorbidity with body mass index (BMI) of 40.0 to 44.9 in adult ([facility]) documented in this encounter [facility] note* Diagnosis Pre-op evaluation- Primary Preoperative examination, unspecified Encounter for screening for malignant neoplasm of colon Special screening for malignant neoplasms, colon Hypertension, unspecified type Coronary artery disease involving [place] heart without angina pectoris, unspecified vessel or lesion type Fibromyalgia Mylagia and myositis, unspecified Obstructive sleep apnea (adult) (pediatric) Acquired hypothyroidism Unspecified hypothyroidism Class 3 severe obesity due to excess calories without serious comorbidity with body mass index (BMI) of 40.0 to 44.9 in adult ([facility]) Wrist injury, left, initial encounter documented in this encounter [facility] note* Diagnosis GARCIA (dyspnea on exertion) Other dyspnea and respiratory abnormality Pre-op evaluation- Primary Preoperative examination, unspecified Encounter for screening for malignant neoplasm of colon Special screening for malignant neoplasms, colon Hypertension, unspecified type Coronary artery disease involving [place] heart without angina pectoris, unspecified vessel or lesion type Fibromyalgia Mylagia and myositis, unspecified Obstructive sleep apnea (adult) (pediatric) Acquired hypothyroidism Unspecified hypothyroidism Class 3 severe obesity due to excess calories without serious comorbidity with body mass index (BMI) of 40.0 to 44.9 in adult ([facility]) [facility]* Diagnosis Pre-op evaluation- Primary Preoperative examination, unspecified Encounter for screening for malignant neoplasm of colon Special screening for malignant neoplasms, colon Hypertension, unspecified type Coronary artery disease involving [place] heart without angina pectoris, unspecified vessel or lesion type Fibromyalgia Mylagia and myositis, unspecified Obstructive sleep apnea (adult) (pediatric) Acquired hypothyroidism Unspecified hypothyroidism Class 3 severe obesity due to excess calories without serious comorbidity with body mass index (BMI) of 40.0 to 44.9 in adult ([facility]) Chronic bilateral low back pain with left-sided sciatica- Primary Lumbar radiculopathy Thoracic or lumbosacral neuritis or radiculitis, unspecified [facility]* Diagnosis GARCIA (dyspnea on exertion) Other dyspnea and respiratory abnormality Pre-op evaluation- Primary Preoperative examination, unspecified Encounter for screening for malignant neoplasm of colon Special screening for malignant neoplasms, colon Hypertension, unspecified type Coronary artery disease involving [place] heart without angina pectoris, unspecified vessel or lesion type Fibromyalgia Mylagia and myositis, unspecified Obstructive sleep apnea (adult) (pediatric) Acquired hypothyroidism Unspecified hypothyroidism Class 3 severe obesity due to excess calories without serious comorbidity with body mass index (BMI) of 40.0 to 44.9 in adult ([facility]) documented in this encounter [facility] note* Diagnosis Pain in joint, multiple sites Pre-op evaluation- Primary Preoperative examination, unspecified Encounter for screening for malignant neoplasm of colon Special screening for malignant neoplasms, colon Hypertension, unspecified type Coronary artery disease involving [place] heart without angina pectoris, unspecified vessel or lesion type Fibromyalgia Mylagia and myositis, unspecified Obstructive sleep apnea (adult) (pediatric) Acquired hypothyroidism Unspecified hypothyroidism Class 3 severe obesity due to excess calories without serious comorbidity with body mass index (BMI) of 40.0 to 44.9 in adult ([facility]) documented in this encounter [facility] note* Diagnosis Pre-op evaluation- Primary Preoperative examination, unspecified Encounter for screening for malignant neoplasm of colon Special screening for malignant neoplasms, colon Hypertension, unspecified type Coronary artery disease involving [place] heart without angina pectoris, unspecified vessel or lesion type Fibromyalgia Mylagia and myositis, unspecified Obstructive sleep apnea (adult) (pediatric) Acquired hypothyroidism Unspecified hypothyroidism Class 3 severe obesity due to excess calories without serious comorbidity with body mass index (BMI) of 40.0 to 44.9 in adult ([facility]) Lumbosacral neuritis- Primary Thoracic or lumbosacral neuritis or radiculitis, unspecified Lumbosacral neuritis Thoracic or lumbosacral neuritis or radiculitis, unspecified documented in this encounter [facility] note* Diagnosis Pre-op evaluation- Primary Preoperative examination, unspecified Encounter for screening for malignant neoplasm of colon Special screening for malignant neoplasms, colon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 [facility] [address] [place] [address] Referral ID Status Reason Start Date Expiration Date Visits Requested Visits Authorized [id number] Pending Review Auto-Generat ed Referral 2 03/29/2023 [facility] Diagnostic Procedure Only (Routine) - Pending Review Specialty Diagnoses / Procedures Referred By Blossom ca Referred To Contact BR IMAG[facility] Diagnoses Breast nodule Abnormal finding on breast imaging Procedures US BREAST LTD RT US BREAST UNI REAL TIME WITH IMAGE LIMITED Sarina Reeves APRN.WEIGHT TRAINING INSTRUCTOR [address] [place] [address] [facility] [address] [place] [address] Referral ID Status Reason Start Date Expiration Date Visits Requested Visits Authorized [id number] Pending Review Auto-Generat ed Referral 2 04/01/2023 1 1 * Diagnostic Procedure Only (Routine) - Pending Review Specialty Diagnoses / Procedures Referred By Blossom t Referred To Contact [facility] Diagnoses Breast nodule Abnormal finding on breast imaging Procedures SIL DIAGNOSTIC BILAT DIAGNOSTIC MAMMOGRAPHY COMPUTER-AIDED DETCJ BI Sarina Reeves APRN.CNP [address] [place] [address] [facility] [address] [place] [address] Referral ID Status Reason Start Date Expiration Date Visits Requested Visits Authorized [id number] Pending Review Auto-Generat ed Referral 2 04/01/2023 1 1 * Diagnostic Procedure Only (Routine) - Pending Review Specialty Diagnoses / Procedures Referred By Blossom ca Referred To Contact US IMAGING Diagnoses Thyroid nodule greater than or equal to 1 cm in diameter incidentally noted on imaging study Procedures US THYROID/PARATHYROID US SOFT TISSUE HEAD & NECK REAL TIME IMGE Sarina Roldan APRN.CNP [address] [place] [address] [facility] Referral ID Status Reason Start Date Expiration Date Visits Requested Visits Authorized [id number] Pending Review Auto-Generat ed Referral 2 04/01/[address] [facility] Diagnostic Procedure Only (Routine) - Pending Review Specialty Diagnoses / Procedures Referred By Blossom t Referred To Contact US IMAGING Diagnoses Multiple thyroid nodules Procedures US THYROID/PARATHYROID US SOFT TISSUE HEAD & NECK REAL TIME IMGE Vivien Wynne MD [facility] [address] [address] [facility] Referral ID Status Reason Start Date Expiration Date Visits Requested Visits Authorized [id number] Pending Review Auto-Generat ed Referral 02/20/2023 08/09/2023 [address] [facility] for referral (narrative)* Outpatient Procedure (Routine) - Closed Specialty Diagnoses / Procedures Referred By Contac t Referred To Contact [facility] Diagnoses History of colonic polyps Procedures COLONOSCOPY SCREENING COLONOSCOPY FLX DX W/COLLJ SPEC WHEN PFRMD Iman Kumari PA-C [address] [facility] [place] [address] [facility] [address] [place] [address] Referral ID Status Reason Start Date Expiration Date V isits Requested Visits Authorized [id number] Closed Auto-Generate d Referral 06/26/2022 06/27/2023 [address] [facility] for referral (narrative)* Outpatient Procedure (Routine) - Closed Specialty Diagnoses / Procedures Referred By Contac t Referred To Contact [facility] Diagnoses Chest tightness Procedures ECG COMPLETE ECG ROUTINE ECG W/LEAST 12 LDS W/I&R Ping Ferrera APRN.CNP [address] [place] [address] [facility] [place] [id number] Referral ID Status Reason Start Date Expiration Date V isits Requested Visits Authorized [id number] Closed Auto-Generate d Referral 11/23/2022 11/23/2023 [address] [facility] for referral (narrative)* - Authorized Specialty Diagnoses / Procedures Referred By Contac t Referred To Contact Diagnoses Lumbar spondylosis Low back pain without sciatica, unspecified back pain laterality, unspecified chronicity Procedures CONSULT [place] [address] [place] [address] Referral ID Status Reason Start Date Expiration Date V isits Requested Visits Authorized [id number] Authorized 01/30/2023 04/30/2023 [address] [facility] for referral (narrative)* Diagnostic Procedure Only (Routine) - Closed Specialty Diagnoses / Procedures Referred By Contac t Referred To Contact [facility] Diagnoses Breast nodule Abnormal finding on breast imaging Procedures SIL DIAGNOSTIC BILAT DIAGNOSTIC MAMMOGRAPHY COMPUTER-AIDED DETCJ BI Sarina Reeves APRN.CNP [address] [place] [address] [facility] [address] [place] [address] Referral ID Status Reason Start Date Expiration Date V isits Requested Visits Authorized [id number] Closed Auto-Generate d Referral 03/02/2022 04/01/2023 1 1 [facility] for referral (narrative)* Diagnostic Procedure Only (Routine) - Closed Specialty Diagnoses / Procedures Referred By Blossom t Referred To Contact US IMAGING Diagnoses Thyroid nodule greater than or equal to 1 cm in diameter incidentally noted on imaging study Procedures US THYROID/PARATHYROID US SOFT TISSUE HEAD & NECK REAL TIME IMGE Sarina Roldan APRN.CNP [address] [place] [address] [place] [address] Referral ID Status Reason Start Date Expiration Date V isits Requested Visits Authorized [id number] Closed Auto-Generate d Referral 03/02/2022 04/01/2023 1 1 [facility] for referral (narrative)* Diagnostic Procedure Only (Routine) - Pending Review Specialty Diagnoses / Procedures Referred By Amadoac t Referred To Contact US IMAGING Diagnoses Multiple thyroid nodules Procedures US THYROID/PARATHYROID US SOFT TISSUE HEAD & NECK REAL TIME IMGE Vivien Wynne MD [address] [place] [address] [place] [address] Referral ID Status Reason Start Date Expiration Date Visits Requested Visits Authorized [id number] Pending Review Auto-Generat ed Referral 02/21/2024 06/29/2024 1 1 [facility] for referral (narrative)* Diagnostic Procedure Only (Routine) - Pending Review Specialty Diagnoses / Procedures Referred By Blossom t Referred To Contact [facility] Diagnoses Encounter for screening mammogram for breast cancer Procedures SIL SCREENING SCREENING MAMMOGRAPHY BI 2-VIEW BREAST INC CAD Emilee Condon MD [address] [place] [address] [facility] [address] [place] [address] Referral ID Status Reason Start Date Expiration Date Visits Requested Visits Authorized [id number] Pending Review Auto-Generat ed Referral 07/10/2023 08/08/2024 [address] [facility] for referral (narrative)* Diagnostic Procedure Only (Routine) - Pending Review Specialty Diagnoses / Procedures Referred By Blossom t Referred To Contact US IMAGING Diagnoses Inflammatory arthritis Stiffness of hand joint, unspecified laterality Procedures US HAND/WRIST SYNOVIAL SCREEN LEFT US COMPL JOINT R-T W/IMAGE DOCUMENTATION [place] APRN.WEIGHT TRAINING INSTRUCTOR [address] [place] [id number] [place] [address] Referral ID Status Reason Start Date Expiration Date Visits Requested Visits Authorized [id number] Pending Review Auto-Generat ed Referral 09/13/2023 10/12/2024 1 1 * Diagnostic Procedure Only (Routine) - Pending Review Specialty Diagnoses / Procedures Referred By Blossom t Referred To Contact US IMAGING Diagnoses Inflammatory arthritis Stiffness of hand joint, unspecified laterality Procedures US HAND/WRIST SYNOVIAL SCREEN RIGHT US COMPL JOINT R-T W/IMAGE DOCUMENTATION [place] APRN.WEIGHT TRAINING INSTRUCTOR [address] [place] [address] [place] [address] Referral ID Status Reason Start Date Expiration Date Visits Requested Visits Authorized [id number] Pending Review Auto-Generat ed Referral 09/13/2023 10/12/2024 1 1 * Diagnostic Procedure Only (Routine) - Pending Review Specialty Diagnoses / Procedures Referred By Contac t Referred To Contact XR IMAGING Diagnoses Stiffness of hand joint, unspecified laterality Procedures XR HAND GENERAL 3V PA/LAT/OBL BILATERAL RADEX HAND MINIMUM 3 VIEWS [place], RACE CAR DRIVER.WEIGHT TRAINING INSTRUCTOR [address] [place] [address] [place] [address] Referral ID Status Reason Start Date Expiration Date Visits Requested Visits Authorized [id number] Pending Review Auto-Generat ed Referral 09/13/2023 10/12/2024 1 1 * Diagnostic Procedure Only (Routine) - Authorized Specialty Diagnoses / Procedures Referred By Contac t Referred To Contact XR IMAGING Diagnoses Osteoporosis, post menopausal Procedures DXA-AXIAL SKELETON [place], RACE CAR DRIVER.WEIGHT TRAINING INSTRUCTOR [address] [place] [phone] [place] [address] Referral ID Status Reason Start Date Expiration Date Visits Requested Visits Authorized [id number] Authorized Auto-Generat ed Referral 09/13/2023 10/11/2024 [address] [facility] for referral (narrative)* Outpatient Procedure (Routine) - Authorized Specialty Diagnoses / Procedures Referred By Contac t Referred To Contact [facility] Diagnoses Spinal stenosis of lumbar region without neurogenic claudication Weakness of left lower extremity Procedures EMG(NEURO/NI) NERVE CONDUCTION STUDIES 9-[place] [address] [place] [id number] [facility] [address] [place] [address] Referral ID Status Reason Start Date Expiration Date Visits Requested Visits Authorized [id number] Authorized Auto-Generat ed Referral 10/18/2023 10/17/2024 1 1 * MRI/CT (Routine) - Authorized Specialty Diagnoses / Procedures Referred By Contac t Referred To Contact MR IMAGING Diagnoses Spinal stenosis of lumbar region with neurogenic claudication Spinal stenosis of lumbar region without neurogenic claudication Weakness of left lower extremity Procedures MRI LUMBAR SPINE WO IVCON MRI SPINAL CANAL LUMBAR W/O CONTRAST MATERIAL Jovany Bahena, [address] [place] [address] [place] [address] Referral ID Status Reason Start Date Expiration Date Visits Requested Visits Authorized [id number] Authorized Auto-Generat ed Referral 10/18/2023 11/16/2024 [address] [facility] for referral (narrative)* Diagnostic Procedure Only (Routine) - Closed Specialty Diagnoses / Procedures Referred By Contac t Referred To Contact XR IMAGING Diagnoses Stiffness of hand joint, unspecified laterality Procedures XR HAND GENERAL 3V PA/LAT/OBL BILATERAL RADEX HAND MINIMUM 3 VIEWS [place] APRN.CNP [address] [id number] [place] [address] Referral ID Status Reason Start Date Expiration Date V isits Requested Visits Authorized [id number] Closed Auto-Generate d Referral 09/13/2023 10/12/2024 [address] [facility] for referral (narrative)* Diagnostic Procedure Only (Routine) - Closed Specialty Diagnoses / Procedures Referred By Contac t Referred To Contact XR IMAGING Diagnoses Pain Procedures XR WRIST GENERAL 3V PA/LAT/OBL LEFT RADEX WRIST COMPLETE MINIMUM 3 VIEWS Caesar Garcia PA-C [address] [id number] [place] [address] Referral ID Status Reason Start Date Expiration Date V isits Requested Visits Authorized [id number] Closed Auto-Generate d Referral 09/28/2022 10/27/2023 [address] [facility] for referral (narrative)* Diagnostic Procedure Only (Urgent) - Closed Specialty Diagnoses / Procedures Referred By Contac t Referred To Contact XR IMAGING Diagnoses Wrist injury, left, initial encounter Procedures XR WRIST INJURY 4V PA/LAT/OBL/SCAPH LEFT RADEX WRIST COMPLETE MINIMUM 3 VIEWS Mar Williamson PA-C [address] [place] [address] [place] [address] Referral ID Status Reason Start Date Expiration Date V isits Requested Visits Authorized [id number] Closed Auto-Generate d Referral 07/24/2022 08/23/2023 [address] [facility] for referral (narrative)* Diagnostic Procedure Only (Routine) - Closed Specialty Diagnoses / Procedures Referred By Contac t Referred To Contact XR IMAGING Diagnoses Wrist injury, left, initial encounter Procedures XR WRIST GENERAL 3V PA/LAT/OBL LEFT RADEX WRIST COMPLETE MINIMUM 3 VIEWS Caesar Garcia PA-C [address] [address] [place] [address] Referral ID Status Reason Start Date Expiration Date V isits Requested Visits Authorized [id number] Closed Auto-Generate d Referral 08/20/2022 09/19/2023 [address] [facility] for referral (narrative)* Diagnostic Procedure Only (Routine) - Closed Specialty Diagnoses / Procedures Referred By Contac t Referred To Contact XR IMAGING Diagnoses Pain in joint, multiple sites Procedures XR HAND GENERAL 3V PA/LAT/OBL BILAT X-RAY HAND MINIMUM 3 [place] [address] [place] [address] [place] [address] Referral ID Status Reason Start Date Expiration Date V isits Requested Visits Authorized [id number] Closed Auto-Generate d Referral 12/14/2020 01/13/2022 [address] [facility] for referral (narrative)* Diagnostic Procedure Only (Routine) - Closed Specialty Diagnoses / Procedures Referred By Contac t Referred To Contact US IMAGING Diagnoses Inflammatory arthritis Stiffness of hand joint, unspecified laterality Procedures US HAND/WRIST SYNOVIAL SCREEN LEFT US COMPL JOINT R-T W/IMAGE DOCUMENTATION Prince [place] APRN.WEIGHT TRAINING INSTRUCTOR [address] [place] [address] [place] [address] Referral ID Status Reason Start Date Expiration Date V isits Requested Visits Authorized [id number] Closed Auto-Generate d Referral 09/13/2023 10/12/2024 1 1 * Diagnostic Procedure Only (Routine) - Closed Specialty Diagnoses / Procedures [facility] Diagnoses Inflammatory arthritis Stiffness of hand joint, unspecified laterality Procedures US HAND/WRIST SYNOVIAL SCREEN RIGHT US COMPL JOINT R-T W/IMAGE DOCUMENTATION Prince [place] APRN.WEIGHT TRAINING INSTRUCTOR [address] [phone] [place] [address] Referral ID Status Reason Start Date Expiration Date V isits Requested Visits Authorized [id number] Closed Auto-Generate d Referral 09/13/2023 10/12/2024 [address] [facility] for visit Narrative* Outpatient Procedure (Routine) - Closed Specialty Diagnoses / Procedures [facility] Diagnoses History of colonic polyps Procedures COLONOSCOPY SCREENING COLONOSCOPY FLX DX W/COLLJ SPEC WHEN PFRMD Iman Kumari PA-C [address] [facility] [place] [address] [facility] [address] [place] [address] Referral ID Status Reason Start Date Expiration Date V isits Requested Visits Authorized [id number] Closed Auto-Generate d Referral 06/26/2022 06/27/2023 [address] [facility] for visit Narrative* Diagnostic Procedure Only (Routine) - Closed Specialty Diagnoses / Procedures [facility] To [facility] BR IM[facility] Diagnoses Breast nodule Abnormal finding on breast imaging Procedures SIL DIAGNOSTIC BILAT DIAGNOSTIC MAMMOGRAPHY COMPUTER-AIDED DETCJ BI Sarina Reeves APRN.WEIGHT TRAINING INSTRUCTOR [address] [place] [address] [facility] [address] [place] [address] Referral ID Status Reason Start Date Expiration Date V isits Requested Visits Authorized [id number] Closed Auto-Generate d Referral 03/02/2022 04/01/2023 [address] [facility] for visit Narrative* Outpatient Procedure (Routine) - Closed Specialty Diagnoses / Procedures Referred By Contac t Referred To Contact [facility] Diagnoses Spinal stenosis of lumbar region without neurogenic claudication Weakness of left lower extremity Procedures EMG(NEURO/NI) NERVE CONDUCTION STUDIES 9-10 STUDIES Jovany Bahena, [address] [place] [address] [facility] [address] [place] [address] Referral ID Status Reason Start Date Expiration Date V isits Requested Visits Authorized [id number] Closed Auto-Generate d Referral 10/18/2023 10/17/2024 [address] [facility] for visit Narrative* Diagnostic Procedure Only (Routine) - Closed Specialty Diagnoses / Procedures Referred By Blossom t Referred To Contact BR IMAGING Diagnoses Encounter for screening mammogram for breast cancer Procedures SIL SCREENING SCREENING MAMMOGRAPHY BI 2-VIEW BREAST INC Emilee Russell MD [address] [place] [address] [facility] [address] [place] [address] Referral ID Status Reason Start Date Expiration Date V isits Requested Visits Authorized [id number] Closed Auto-Generate d Referral 07/10/2023 08/08/2024 [address] [facility] for visit Narrative* Diagnostic Procedure Only (Routine) - Closed Specialty Diagnoses / Procedures Referred By Blossom t Referred To Contact XR IMAGING Diagnoses Pain Procedures XR WRIST GENERAL 3V PA/LAT/OBL LEFT RADEX WRIST COMPLETE MINIMUM 3 VIEWS Caesar Garcia PA-C [address] [address] [place] [address] Referral ID Status Reason Start Date Expiration Date V isits Requested Visits Authorized [id number] Closed Auto-Generate d Referral 09/28/2022 10/27/2023 [address] [facility] for visit Narrative* Diagnostic Procedure Only (Urgent) - Closed Specialty Diagnoses / Procedures Referred By Contac t Referred To Contact XR IMAGING Diagnoses Wrist injury, left, initial encounter Procedures XR WRIST INJURY 4V PA/LAT/OBL/SCAPH LEFT RADEX WRIST COMPLETE MINIMUM 3 VIEWS Mar Williamson, PA-C [address] [place] [address] [place] [address] Referral ID Status Reason Start Date Expiration Date V isits Requested Visits Authorized [id number] Closed Auto-Generate d Referral 07/24/2022 08/23/2023 [address] [facility] for visit Narrative* Diagnostic Procedure Only (Routine) - Closed Specialty Diagnoses / Procedures Referred By Contac t Referred To Contact XR IMAGING Diagnoses Osteoporosis, post menopausal Procedures DXA-AXIAL SKELETON [place], RACE CAR DRIVER.WEIGHT TRAINING INSTRUCTOR [address] [place] [address] [place] [address] Referral ID Status Reason Start Date Expiration Date V isits Requested Visits Authorized [id number] Closed Auto-Generate d Referral 09/13/2023 10/11/2024 [address] [facility] for visit Narrative* Diagnostic Procedure Only (Routine) - Closed Specialty Diagnoses / Procedures Referred By Contac t Referred To Contact US IMAGING Diagnoses Inflammatory arthritis Stiffness of hand joint, unspecified laterality Procedures US HAND/WRIST SYNOVIAL SCREEN LEFT US COMPL JOINT R-T W/IMAGE DOCUMENTATION Prince [place], RACE CAR DRIVER.WEIGHT TRAINING INSTRUCTOR [address] [place] [address] [place] [address] Referral ID Status Reason Start Date Expiration Date V isits Requested Visits Authorized [id number] Closed Auto-Generate d Referral 09/13/2023 10/12/[address] [facility] Advance Directives No Advanced Directives Records FoundDocuments on File Type Date Recorded Patient Group Underwriter Expl anation Advance Directive(s) 07/29/2017 10:26 AM Advance Directive Response Recorded Date/ Time Advance Directives Yes August 16, 2 016 7:22pm Living Will Yes May 14 4:50pm Power of Mgmt Specialist Yes May 14, 2022 4:50pm Name of Medical Power of Mgmt Specialist DOUGLAS May 14, 2022 4:50pm Advance Directive Response Recorded Date/ Time Name of Medical Power of Mgmt Specialist DOUGLAS May 14, 2022 4:50pm Advance Directives on File Yes 2022 7:56am Name of Medical Power of Mgmt Specialist Meño and Chase Ramos June 11, 2022 7:56am Advance Directives Yes May 7:56am Living Will Yes June 11 023 7:56am Power of Mgmt Specialist Yes June 11, 2022 7:56am Advance Directive Response Recorded Date/ Time Name of Medical Power of Mgmt Specialist DOUGLAS May 14, 2022 4:50pm Advance Directives on File Yes 2022 7:56am Name of Medical Power of Mgmt Specialist Meño and Chase Ramos June 11, 2022 7:56am Name of Medical Power of Mgmt Specialist meño ramos son, chase ramos son June 16, 2022 8:00pm Advance Directives Yes May 7:56am Living Will Yes June 16, 023 8:00pm Power of Mgmt Specialist Yes June 16, 2022 8:00pm Advance Directive Response Recorded Date/ Time Name of Medical Power of Mgmt Specialist DOUGLAS May 14, 2022 5:50pm Advance Directives on File Yes 2022 8:56am Name of Medical Power of Mgmt Specialist Meño and Chase Ramos June 11, 2022 8:56am Name of Medical Power of Mgmt Specialist meño ramos son, chase elkins June 16, 2022 9:00pm Advance Directives Yes May 8:56am Living Will Yes June 16, 023 9:00pm Power of Mgmt Specialist Yes June 16, 2022 9:00pm Reason for Referral Specialty Diagnoses / Procedures Referred By Blossom ca Referred To Contact [facility] Diagnoses Chronic pain of both shoulders Procedures CONSULT TO PHYSICAL THERAPY PHYSICAL THERAPY EVALUATION HIGH COMPLEX [address] [place] [address] [place] [address] [facility] [address] [place] [address] Referral ID Status Reason Start Date Expiration Date Visits Requested Visits Authorized [id number] Authorized PCP Requested Referral Auto-Generate d Referral 01/24/2022 01/24/2023 99 99 Specialty Diagnoses / Procedures Referred By Contac t Referred To Contact Cardiology Diagnoses Diastolic dysfunction without heart failure GARCIA (dyspnea on exertion) Intermittent palpitations Procedures CONSULT TO CARDIOLOGY Emilee Condon MD [address] [place] [address] [employer] [address] [place] [address] Referral ID Status Reason Start Date Expiration Date Visits Requested Visits Authorized [id number] Ref Not Required PCP Requested Referral 2 03/07/2023 1 1 Specialty Diagnoses / Procedures Referred By Contac t Referred To Contact Endocrinology Diagnoses Thyroid nodule greater than or equal to 1 cm in diameter incidentally noted on imaging study Procedures CONSULT TO ENDOCRINOLOGY OFFICE/OUTPATIENT [facility] 60-74 MINUTES Larry Darnell MD [address] [place] [address], [address] [place] [address] Referral ID Status Reason Start Date Expiration Date Visits Requested Visits Authorized [id number] Authorized PCP Requested Referral 2 03/12/2023 1 1 Specialty Diagnoses / Procedures Referred By Contac t Referred To Contact Orthopedics Diagnoses Wrist injury, left, initial encounter Procedures CONSULT TO ORTHOPAEDICS OFFICE/OUTPATIENT [facility] 60-74 MINUTES Mar Williamson, PA-C [address] [place] [address] Referral ID Status Reason Start Date Expiration Date Visits Requested Visits Authorized [id number] Authorized PCP Requested Referral 07/24/2022 07/24/2023 1 1 Specialty Diagnoses / Procedures Referred By Contac t Referred To Contact XR IMAGING Diagnoses Wrist injury, left, initial encounter Procedures XR WRIST INJURY 4V PA/LAT/OBL/SCAPH LEFT RADEX WRIST COMPLETE MINIMUM 3 VIEWS Athy, Mar R, PA-C [address] [place] [address] [facility] Referral ID Status Reason Start Date Expiration Date V isits Requested Visits Authorized [id number] Closed Auto-Generate d Referral 07/24/2022 08/23/2023 1 1 Specialty Diagnoses / Procedures Referred By Contac t Referred To Contact [facility] Diagnoses Lumbar spondylosis Low back pain without sciatica, unspecified back pain laterality, unspecified chronicity Procedures CONSULT TO [facility] OFFICE/OUTPATIENT [facility] 60-74 MINUTES Prince West, RACE CAR DRIVER.WEIGHT TRAINING INSTRUCTOR [address] [place] [address] Referral ID Status Reason Start Date Expiration Date Visits Requested Visits Authorized [id number] Authorized PCP Requested Referral 10/10/2022 10/10/2023 1 1 Specialty Diagnoses / Procedures Referred By Contac t Referred To Contact CT IMAGING Diagnoses Bilateral lower extremity edema GARCIA (dyspnea on exertion) Intermittent palpitations Procedures CT CHEST WO IVCON DIAGNOSTIC COMPUTED TOMOGRAPHY THORAX W/O CNTRST Emilee Condon MD [address] [place] [address] [place] [address] Referral ID Status Reason Start Date Expiration Date V isits Requested Visits Authorized [id number] Closed Auto-Generate d Referral 02/22/2022 03/24/2023 1 1 Specialty Diagnoses / Procedures Referred By Contac t Referred To Contact MR IMAGING Diagnoses Spinal stenosis of lumbar region with neurogenic claudication Spinal stenosis of lumbar region without neurogenic claudication Weakness of left lower extremity Procedures MRI LUMBAR SPINE WO IVCON MRI SPINAL CANAL LUMBAR W/O CONTRAST MATERIAL Jovany Bahena, [address] [place] [address] [place] [address] Referral ID Status Reason Start Date Expiration Date V isits Requested Visits Authorized [id number] Closed Auto-Generate d Referral 10/18/2023 11/16/2024 1 1 Chief Complaint and Reason for Visit Chief Complaint chest pain Chief Complaint chest pain GARCIA, HTN, PALP CHEST PAIN CHEST PAIN ABN STRESS Reason for Visit GARCIA (dyspnea on exer tion) Essential hypertension Chief Complaint chest pain GARCIA, HTN, PALP CHEST PAIN CHEST PAIN ABN STRESS fever, chills, right knee pain Reason for Visit GARCIA (dyspnea on exer tion) Essential hypertension Chief Complaint chest pain GARCIA, HTN, PALP CHEST PAIN CHEST PAIN ABN STRESS fever, chills, right knee pain 6 wk FU CLAUDICATION, FAMILY HX OF CVA Reason for Visit GARCIA (dyspnea on exer tion) Essential hypertension Claudication Family history of CVA [id number] Essential hypertension Chief Complaint chest pain GARCIA, HTN, PALP CHEST PAIN CHEST PAIN ABN STRESS fever, chills, right knee pain 6 wk FU CLAUDICATION, FAMILY HX OF CVA HX CAD, ATHEROSCLEROSIS, FAMILY HX CVA EORDER Reason for Visit GARCIA (dyspnea on exer tion) Essential hypertension Claudication Family history of CVA [id number] Essential hypertension Family History No Family History Records Found Relationship Condition Age at Onset Recorded Date/T drake mother Cerebrovascular accident (CVA) Unknown Disorder of thyroid Unknown Diabetes mellitus Unknown father Kidney disorder Unknown Malignant neoplasm Unknown Medications Administered Section Inactive Administered Medications - up to 3 most recent administrations Medication Order MAR Action Action Date Dose Rate Site lactated ringers iv infusion 30 mL/hr, INTRAVENOUS, CONTINUOUS, Starting on Sat08/01/22 at 0700, Until Sat08/01/22 at 0859, Preprocedure Restarted 08/01/2022 8:06 AM EDT New Bag/Syringe/Bottle 08/01/2022 7:33 AM EDT 30 mL/hr 3 0 mL/hr Summary Purpose Additional Source Comments Source Comments (unrecognize d section and content) In the event this informatio n is protected by the Federal Confidentiality of Alcohol and Drug Abuse Patient Records regulations: The Federal rules restrict any use of the information to criminally investigate or prosecute any alcohol or drug abuse patient.[facility] the event this information is protected by the Federal Confidentiality of Alcohol and Drug Abuse Patient Records regulations: The Federal rules restrict any use of the information to criminally investigate or prosecute any alcohol or drug abuse patient.[facility] the event this information is protected by the Federal Confidentiality of Alcohol and Drug Abuse Patient Records regulations: The Federal rules restrict any use of the information to criminally investigate or prosecute any alcohol or drug abuse patient.[facility] the event this information is protected by the Federal Confidentiality of Alcohol and Drug Abuse Patient Records regulations: The Federal rules restrict any use of the information to criminally investigate or prosecute any alcohol or drug abuse patient.[facility] the event this information is protected by the Federal Confidentiality of Alcohol and Drug Abuse Patient Records regulations: The Federal rules restrict any use of the information to criminally investigate or prosecute any alcohol or drug abuse patient.[facility] the event this information is protected by the Federal Confidentiality of Alcohol and Drug Abuse Patient Records regulations: The Federal rules restrict any use of the information to criminally investigate or prosecute any alcohol or drug abuse patient.[facility] the event this information is protected by the Federal Confidentiality of Alcohol and Drug Abuse Patient Records regulations: The Federal rules restrict any use of the information to criminally investigate or prosecute any alcohol or drug abuse patient.[facility] the event this information is protected by the Federal Confidentiality of Alcohol and Drug Abuse Patient Records regulations: The Federal rules restrict any use of the information to criminally investigate or prosecute any alcohol or drug abuse patient.[facility] the event this information is protected by the Federal Confidentiality of Alcohol and Drug Abuse Patient Records regulations: The Federal rules restrict any use of the information to criminally investigate or prosecute any alcohol or drug abuse patient.[facility] the event this information is protected by the Federal Confidentiality of Alcohol and Drug Abuse Patient Records regulations: The Federal rules restrict any use of the information to criminally investigate or prosecute any alcohol or drug abuse patient.[facility] the event this information is protected by the Federal Confidentiality of Alcohol and Drug Abuse Patient Records regulations: The Federal rules restrict any use of the information to criminally investigate or prosecute any alcohol or drug abuse patient.[facility] the event this information is protected by the Federal Confidentiality of Alcohol and Drug Abuse Patient Records regulations: The Federal rules restrict any use of the information to criminally investigate or prosecute any alcohol or drug abuse patient.[facility] the event this information is protected by the Federal Confidentiality of Alcohol and Drug Abuse Patient Records regulations: The Federal rules restrict any use of the information to criminally investigate or prosecute any alcohol or drug abuse patient.[facility] the event this information is protected by the Federal Confidentiality of Alcohol and Drug Abuse Patient Records regulations: The Federal rules restrict any use of the information to criminally investigate or prosecute any alcohol or drug abuse patient.[facility] the event this information is protected by the Federal Confidentiality of Alcohol and Drug Abuse Patient Records regulations: The Federal rules restrict any use of the information to criminally investigate or prosecute any alcohol or drug abuse patient.[facility] the event this information is protected by the Federal Confidentiality of Alcohol and Drug Abuse Patient Records regulations: The Federal rules restrict any use of the information to criminally investigate or prosecute any alcohol or drug abuse patient.[facility] the event this information is protected by the Federal Confidentiality of Alcohol and Drug Abuse Patient Records regulations: The Federal rules restrict any use of the information to criminally investigate or prosecute any alcohol or drug abuse patient.[facility] the event this information is protected by the Federal Confidentiality of Alcohol and Drug Abuse Patient Records regulations: The Federal rules restrict any use of the information to criminally investigate or prosecute any alcohol or drug abuse patient.[facility] the event this information is protected by the Federal Confidentiality of Alcohol and Drug Abuse Patient Records regulations: The Federal rules restrict any use of the information to criminally investigate or prosecute any alcohol or drug abuse patient.[facility] the event this information is protected by the Federal Confidentiality of Alcohol and Drug Abuse Patient Records regulations: The Federal rules restrict any use of the information to criminally investigate or prosecute any alcohol or drug abuse patient.[facility] the event this information is protected by the Federal Confidentiality of Alcohol and Drug Abuse Patient Records regulations: The Federal rules restrict any use of the information to criminally investigate or prosecute any alcohol or drug abuse patient.[facility] the event this information is protected by the Federal Confidentiality of Alcohol and Drug Abuse Patient Records regulations: The Federal rules restrict any use of the information to criminally investigate or prosecute any alcohol or drug abuse patient.[facility]In the event this information is protected by the Federal Confidentiality of Alcohol and Drug Abuse Patient Records regulations: The Federal rules restrict any use of the information to criminally investigate or prosecute any alcohol or drug abuse patient.[facility] the event this information is protected by the Federal Confidentiality of Alcohol and Drug Abuse Patient Records regulations: The Federal rules restrict any use of the information to criminally investigate or prosecute any alcohol or drug abuse patient.[facility] the event this information is protected by the Federal Confidentiality of Alcohol and Drug Abuse Patient Records regulations: The Federal rules restrict any use of the information to criminally investigate or prosecute any alcohol or drug abuse patient.[facility]In the event this information is protected by the Federal Confidentiality of Alcohol and Drug Abuse Patient Records regulations: The Federal rules restrict any use of the information to criminally investigate or prosecute any alcohol or drug abuse patient.[facility]In the event this information is protected by the Federal Confidentiality of Alcohol and Drug Abuse Patient Records regulations: The Federal rules restrict any use of the information to criminally investigate or prosecute any alcohol or drug abuse patient.[facility]In the event this information is protected by the Federal Confidentiality of Alcohol and Drug Abuse Patient Records regulations: The Federal rules restrict any use of the information to criminally investigate or prosecute any alcohol or drug abuse patient.[facility] the event this information is protected by the Federal Confidentiality of Alcohol and Drug Abuse Patient Records regulations: The Federal rules restrict any use of the information to criminally investigate or prosecute any alcohol or drug abuse patient.[facility] the event this information is protected by the Federal Confidentiality of Alcohol and Drug Abuse Patient Records regulations: The Federal rules restrict any use of the information to criminally investigate or prosecute any alcohol or drug abuse patient.[facility] HospitalIn the event this information is protected by the Federal Confidentiality of Alcohol and Drug Abuse Patient Records regulations: The Federal rules restrict any use of the information to criminally investigate or prosecute any alcohol or drug abuse patient.[facility] HospitalIn the event this information is protected by the Federal Confidentiality of Alcohol and Drug Abuse Patient Records regulations: The Federal rules restrict any use of the information to criminally investigate or prosecute any alcohol or drug abuse patient.[facility] HospitalIn the event this information is protected by the Federal Confidentiality of Alcohol and Drug Abuse Patient Records regulations: The Federal rules restrict any use of the information to criminally investigate or prosecute any alcohol or drug abuse patient.[facility] HospitalIn the event this information is protected by the Federal Confidentiality of Alcohol and Drug Abuse Patient Records regulations: The Federal rules restrict any use of the information to criminally investigate or prosecute any alcohol or drug abuse patient.[facility] HospitalIn the event this information is protected by the Federal Confidentiality of Alcohol and Drug Abuse Patient Records regulations: The Federal rules restrict any use of the information to criminally investigate or prosecute any alcohol or drug abuse patient.[facility] HospitalIn the event this information is protected by the Federal Confidentiality of Alcohol and Drug Abuse Patient Records regulations: The Federal rules restrict any use of the information to criminally investigate or prosecute any alcohol or drug abuse patient.[facility] HospitalIn the event this information is protected by the Federal Confidentiality of Alcohol and Drug Abuse Patient Records regulations: The Federal rules restrict any use of the information to criminally investigate or prosecute any alcohol or drug abuse patient.[facility] HospitalIn the event this information is protected by the Federal Confidentiality of Alcohol and Drug Abuse Patient Records regulations: The Federal rules restrict any use of the information to criminally investigate or prosecute any alcohol or drug abuse patient.[facility] HospitalIn the event this information is protected by the Federal Confidentiality of Alcohol and Drug Abuse Patient Records regulations: The Federal rules restrict any use of the information to criminally investigate or prosecute any alcohol or drug abuse patient.[facility] HospitalIn the event this information is protected by the Federal Confidentiality of Alcohol and Drug Abuse Patient Records regulations: The Federal rules restrict any use of the information to criminally investigate or prosecute any alcohol or drug abuse patient.[facility] HospitalIn the event this information is protected by the Federal Confidentiality of Alcohol and Drug Abuse Patient Records regulations: The Federal rules restrict any use of the information to criminally investigate or prosecute any alcohol or drug abuse patient.[facility] HospitalIn the event this information is protected by the Federal Confidentiality of Alcohol and Drug Abuse Patient Records regulations: The Federal rules restrict any use of the information to criminally investigate or prosecute any alcohol or drug abuse patient.[facility] HospitalIn the event this information is protected by the Federal Confidentiality of Alcohol and Drug Abuse Patient Records regulations: The Federal rules restrict any use of the information to criminally investigate or prosecute any alcohol or drug abuse patient.[facility] HospitalIn the event this information is protected by the Federal Confidentiality of Alcohol and Drug Abuse Patient Records regulations: The Federal rules restrict any use of the information to criminally investigate or prosecute any alcohol or drug abuse patient.[facility] HospitalIn the event this information is protected by the Federal Confidentiality of Alcohol and Drug Abuse Patient Records regulations: The Federal rules restrict any use of the information to criminally investigate or prosecute any alcohol or drug abuse patient.[facility] HospitalIn the event this information is protected by the Federal Confidentiality of Alcohol and Drug Abuse Patient Records regulations: The Federal rules restrict any use of the information to criminally investigate or prosecute any alcohol or drug abuse patient.[facility] HospitalIn the event this information is protected by the Federal Confidentiality of Alcohol and Drug Abuse Patient Records regulations: The Federal rules restrict any use of the information to criminally investigate or prosecute any alcohol or drug abuse patient.[facility] HospitalIn the event this information is protected by the Federal Confidentiality of Alcohol and Drug Abuse Patient Records regulations: The Federal rules restrict any use of the information to criminally investigate or prosecute any alcohol or drug abuse patient.[facility] HospitalIn the event this information is protected by the Federal Confidentiality of Alcohol and Drug Abuse Patient Records regulations: The Federal rules restrict any use of the information to criminally investigate or prosecute any alcohol or drug abuse patient.[facility] HospitalIn the event this information is protected by the Federal Confidentiality of Alcohol and Drug Abuse Patient Records regulations: The Federal rules restrict any use of the information to criminally investigate or prosecute any alcohol or drug abuse patient.[facility] HospitalIn the event this information is protected by the Federal Confidentiality of Alcohol and Drug Abuse Patient Records regulations: The Federal rules restrict any use of the information to criminally investigate or prosecute any alcohol or drug abuse patient.[facility] HospitalIn the event this information is protected by the Federal Confidentiality of Alcohol and Drug Abuse Patient Records regulations: The Federal rules restrict any use of the information to criminally investigate or prosecute any alcohol or drug abuse patient.[facility] HospitalIn the event this information is protected by the Federal Confidentiality of Alcohol and Drug Abuse Patient Records regulations: The Federal rules restrict any use of the information to criminally investigate or prosecute any alcohol or drug abuse patient.[facility] HospitalIn the event this information is protected by the Federal Confidentiality of Alcohol and Drug Abuse Patient Records regulations: The Federal rules restrict any use of the information to criminally investigate or prosecute any alcohol or drug abuse patient.[facility] HospitalIn the event this information is protected by the Federal Confidentiality of Alcohol and Drug Abuse Patient Records regulations: The Federal rules restrict any use of the information to criminally investigate or prosecute any alcohol or drug abuse patient.[facility] HospitalIn the event this information is protected by the Federal Confidentiality of Alcohol and Drug Abuse Patient Records regulations: The Federal rules restrict any use of the information to criminally investigate or prosecute any alcohol or drug abuse patient.[facility] HospitalIn the event this information is protected by the Federal Confidentiality of Alcohol and Drug Abuse Patient Records regulations: The Federal rules restrict any use of the information to criminally investigate or prosecute any alcohol or drug abuse patient.[facility] HospitalIn the event this information is protected by the Federal Confidentiality of Alcohol and Drug Abuse Patient Records regulations: The Federal rules restrict any use of the information to criminally investigate or prosecute any alcohol or drug abuse patient.[facility] HospitalIn the event this information is protected by the Federal Confidentiality of Alcohol and Drug Abuse Patient Records regulations: The Federal rules restrict any use of the information to criminally investigate or prosecute any alcohol or drug abuse patient.[facility] HospitalIn the event this information is protected by the Federal Confidentiality of Alcohol and Drug Abuse Patient Records regulations: The Federal rules restrict any use of the information to criminally investigate or prosecute any alcohol or drug abuse patient.[facility] HospitalIn the event this information is protected by the Federal Confidentiality of Alcohol and Drug Abuse Patient Records regulations: The Federal rules restrict any use of the information to criminally investigate or prosecute any alcohol or drug abuse patient.[facility] HospitalIn the event this information is protected by the Federal Confidentiality of Alcohol and Drug Abuse Patient Records regulations: The Federal rules restrict any use of the information to criminally investigate or prosecute any alcohol or drug abuse patient.[facility] HospitalIn the event this information is protected by the Federal Confidentiality of Alcohol and Drug Abuse Patient Records regulations: The Federal rules restrict any use of the information to criminally investigate or prosecute any alcohol or drug abuse patient.[facility] HospitalIn the event this information is protected by the Federal Confidentiality of Alcohol and Drug Abuse Patient Records regulations: The Federal rules restrict any use of the information to criminally investigate or prosecute any alcohol or drug abuse patient.[facility] HospitalIn the event this information is protected by the Federal Confidentiality of Alcohol and Drug Abuse Patient Records regulations: The Federal rules restrict any use of the information to criminally investigate or prosecute any alcohol or drug abuse patient.[facility] HospitalIn the event this information is protected by the Federal Confidentiality of Alcohol and Drug Abuse Patient Records regulations: The Federal rules restrict any use of the information to criminally investigate or prosecute any alcohol or drug abuse patient.[facility] HospitalIn the event this information is protected by the Federal Confidentiality of Alcohol and Drug Abuse Patient Records regulations: The Federal rules restrict any use of the information to criminally investigate or prosecute any alcohol or drug abuse patient.[facility] HospitalIn the event this information is protected by the Federal Confidentiality of Alcohol and Drug Abuse Patient Records regulations: The Federal rules restrict any use of the information to criminally investigate or prosecute any alcohol or drug abuse patient.[facility] HospitalIn the event this information is protected by the Federal Confidentiality of Alcohol and Drug Abuse Patient Records regulations: The Federal rules restrict any use of the information to criminally investigate or prosecute any alcohol or drug abuse patient.[facility] HospitalIn the event this information is protected by the Federal Confidentiality of Alcohol and Drug Abuse Patient Records regulations: The Federal rules restrict any use of the information to criminally investigate or prosecute any alcohol or drug abuse patient.[facility] HospitalIn the event this information is protected by the Federal Confidentiality of Alcohol and Drug Abuse Patient Records regulations: The Federal rules restrict any use of the information to criminally investigate or prosecute any alcohol or drug abuse patient.[facility] HospitalIn the event this information is protected by the Federal Confidentiality of Alcohol and Drug Abuse Patient Records regulations: The Federal rules restrict any use of the information to criminally investigate or prosecute any alcohol or drug abuse patient.[facility] HospitalIn the event this information is protected by the Federal Confidentiality of Alcohol and Drug Abuse Patient Records regulations: The Federal rules restrict any use of the information to criminally investigate or prosecute any alcohol or drug abuse patient.[facility] HospitalIn the event this information is protected by the Federal Confidentiality of Alcohol and Drug Abuse Patient Records regulations: The Federal rules restrict any use of the information to criminally investigate or prosecute any alcohol or drug abuse patient.[facility] HospitalIn the event this information is protected by the Federal Confidentiality of Alcohol and Drug Abuse Patient Records regulations: The Federal rules restrict any use of the information to criminally investigate or prosecute any alcohol or drug abuse patient.[facility] HospitalIn the event this information is protected by the Federal Confidentiality of Alcohol and Drug Abuse Patient Records regulations: The Federal rules restrict any use of the information to criminally investigate or prosecute any alcohol or drug abuse patient.[facility] HospitalIn the event this information is protected by the Federal Confidentiality of Alcohol and Drug Abuse Patient Records regulations: The Federal rules restrict any use of the information to criminally investigate or prosecute any alcohol or drug abuse patient.[facility] HospitalIn the event this information is protected by the Federal Confidentiality of Alcohol and Drug Abuse Patient Records regulations: The Federal rules restrict any use of the information to criminally investigate or prosecute any alcohol or drug abuse patient.[facility]In the event this information is protected by the Federal Confidentiality of Alcohol and Drug Abuse Patient Records regulations: The Federal rules restrict any use of the information to criminally investigate or prosecute any alcohol or drug abuse patient.[facility] HospitalIn the event this information is protected by the Federal Confidentiality of Alcohol and Drug Abuse Patient Records regulations: The Federal rules restrict any use of the information to criminally investigate or prosecute any alcohol or drug abuse patient.[facility] HospitalIn the event this information is protected by the Federal Confidentiality of Alcohol and Drug Abuse Patient Records regulations: The Federal rules restrict any use of the information to criminally investigate or prosecute any alcohol or drug abuse patient.[facility] HospitalIn the event this information is protected by the Federal Confidentiality of Alcohol and Drug Abuse Patient Records regulations: The Federal rules restrict any use of the information to criminally investigate or prosecute any alcohol or drug abuse patient.[facility] HospitalIn the event this information is protected by the Federal Confidentiality of Alcohol and Drug Abuse Patient Records regulations: The Federal rules restrict any use of the information to criminally investigate or prosecute any alcohol or drug abuse patient.[facility] HospitalIn the event this information is protected by the Federal Confidentiality of Alcohol and Drug Abuse Patient Records regulations: The Federal rules restrict any use of the information to criminally investigate or prosecute any alcohol or drug abuse patient.[facility] HospitalIn the event this information is protected by the Federal Confidentiality of Alcohol and Drug Abuse Patient Records regulations: The Federal rules restrict any use of the information to criminally investigate or prosecute any alcohol or drug abuse patient.[facility] HospitalIn the event this information is protected by the Federal Confidentiality of Alcohol and Drug Abuse Patient Records regulations: The Federal rules restrict any use of the information to criminally investigate or prosecute any alcohol or drug abuse patient.[facility] HospitalIn the event this information is protected by the Federal Confidentiality of Alcohol and Drug Abuse Patient Records regulations: The Federal rules restrict any use of the information to criminally investigate or prosecute any alcohol or drug abuse patient.[facility] HospitalIn the event this information is protected by the Federal Confidentiality of Alcohol and Drug Abuse Patient Records regulations: The Federal rules restrict any use of the information to criminally investigate or prosecute any alcohol or drug abuse patient.[facility] HospitalIn the event this information is protected by the Federal Confidentiality of Alcohol and Drug Abuse Patient Records regulations: The Federal rules restrict any use of the information to criminally investigate or prosecute any alcohol or drug abuse patient.[facility] HospitalIn the event this information is protected by the Federal Confidentiality of Alcohol and Drug Abuse Patient Records regulations: The Federal rules restrict any use of the information to criminally investigate or prosecute any alcohol or drug abuse patient.[facility] HospitalIn the event this information is protected by the Federal Confidentiality of Alcohol and Drug Abuse Patient Records regulations: The Federal rules restrict any use of the information to criminally investigate or prosecute any alcohol or drug abuse patient.[facility] HospitalIn the event this information is protected by the Federal Confidentiality of Alcohol and Drug Abuse Patient Records regulations: The Federal rules restrict any use of the information to criminally investigate or prosecute any alcohol or drug abuse patient.[facility] HospitalIn the event this information is protected by the Federal Confidentiality of Alcohol and Drug Abuse Patient Records regulations: The Federal rules restrict any use of the information to criminally investigate or prosecute any alcohol or drug abuse patient.[facility] HospitalIn the event this information is protected by the Federal Confidentiality of Alcohol and Drug Abuse Patient Records regulations: The Federal rules restrict any use of the information to criminally investigate or prosecute any alcohol or drug abuse patient.[facility] HospitalIn the event this information is protected by the Federal Confidentiality of Alcohol and Drug Abuse Patient Records regulations: The Federal rules restrict any use of the information to criminally investigate or prosecute any alcohol or drug abuse patient.[facility] HospitalIn the event this information is protected by the Federal Confidentiality of Alcohol and Drug Abuse Patient Records regulations: The Federal rules restrict any use of the information to criminally investigate or prosecute any alcohol or drug abuse patient.[facility] HospitalIn the event this information is protected by the Federal Confidentiality of Alcohol and Drug Abuse Patient Records regulations: The Federal rules restrict any use of the information to criminally investigate or prosecute any alcohol or drug abuse patient.[facility] HospitalIn the event this information is protected by the Federal Confidentiality of Alcohol and Drug Abuse Patient Records regulations: The Federal rules restrict any use of the information to criminally investigate or prosecute any alcohol or drug abuse patient.[facility] HospitalIn the event this information is protected by the Federal Confidentiality of Alcohol and Drug Abuse Patient Records regulations: The Federal rules restrict any use of the information to criminally investigate or prosecute any alcohol or drug abuse patient.[facility] HospitalIn the event this information is protected by the Federal Confidentiality of Alcohol and Drug Abuse Patient Records regulations: The Federal rules restrict any use of the information to criminally investigate or prosecute any alcohol or drug abuse patient.[facility] HospitalIn the event this information is protected by the Federal Confidentiality of Alcohol and Drug Abuse Patient Records regulations: The Federal rules restrict any use of the information to criminally investigate or prosecute any alcohol or drug abuse patient.[facility] HospitalIn the event this information is protected by the Federal Confidentiality of Alcohol and Drug Abuse Patient Records regulations: The Federal rules restrict any use of the information to criminally investigate or prosecute any alcohol or drug abuse patient.[facility] HospitalIn the event this information is protected by the Federal Confidentiality of Alcohol and Drug Abuse Patient Records regulations: The Federal rules restrict any use of the information to criminally investigate or prosecute any alcohol or drug abuse patient.[facility] HospitalIn the event this information is protected by the Federal Confidentiality of Alcohol and Drug Abuse Patient Records regulations: The Federal rules restrict any use of the information to criminally investigate or prosecute any alcohol or drug abuse patient.[facility] HospitalIn the event this information is protected by the Federal Confidentiality of Alcohol and Drug Abuse Patient Records regulations: The Federal rules restrict any use of the information to criminally investigate or prosecute any alcohol or drug abuse patient.[facility] HospitalIn the event this information is protected by the Federal Confidentiality of Alcohol and Drug Abuse Patient Records regulations: The Federal rules restrict any use of the information to criminally investigate or prosecute any alcohol or drug abuse patient.[facility] HospitalIn the event this information is protected by the Federal Confidentiality of Alcohol and Drug Abuse Patient Records regulations: The Federal rules restrict any use of the information to criminally investigate or prosecute any alcohol or drug abuse patient.[facility] HospitalIn the event this information is protected by the Federal Confidentiality of Alcohol and Drug Abuse Patient Records regulations: The Federal rules restrict any use of the information to criminally investigate or prosecute any alcohol or drug abuse patient.[facility] HospitalIn the event this information is protected by the Federal Confidentiality of Alcohol and Drug Abuse Patient Records regulations: The Federal rules restrict any use of the information to criminally investigate or prosecute any alcohol or drug abuse patient.[facility] HospitalIn the event this information is protected by the Federal Confidentiality of Alcohol and Drug Abuse Patient Records regulations: The Federal rules restrict any use of the information to criminally investigate or prosecute any alcohol or drug abuse patient.[facility] HospitalIn the event this information is protected by the Federal Confidentiality of Alcohol and Drug Abuse Patient Records regulations: The Federal rules restrict any use of the information to criminally investigate or prosecute any alcohol or drug abuse patient.[facility] HospitalIn the event this information is protected by the Federal Confidentiality of Alcohol and Drug Abuse Patient Records regulations: The Federal rules restrict any use of the information to criminally investigate or prosecute any alcohol or drug abuse patient.[facility] HospitalIn the event this information is protected by the Federal Confidentiality of Alcohol and Drug Abuse Patient Records regulations: The Federal rules restrict any use of the information to criminally investigate or prosecute any alcohol or drug abuse patient.[facility] HospitalIn the event this information is protected by the Federal Confidentiality of Alcohol and Drug Abuse Patient Records regulations: The Federal rules restrict any use of the information to criminally investigate or prosecute any alcohol or drug abuse patient.[facility] HospitalIn the event this information is protected by the Federal Confidentiality of Alcohol and Drug Abuse Patient Records regulations: The Federal rules restrict any use of the information to criminally investigate or prosecute any alcohol or drug abuse patient.[facility] HospitalIn the event this information is protected by the Federal Confidentiality of Alcohol and Drug Abuse Patient Records regulations: The Federal rules restrict any use of the information to criminally investigate or prosecute any alcohol or drug abuse patient.[facility] HospitalIn the event this information is protected by the Federal Confidentiality of Alcohol and Drug Abuse Patient Records regulations: The Federal rules restrict any use of the information to criminally investigate or prosecute any alcohol or drug abuse patient.[facility] HospitalIn the event this information is protected by the Federal Confidentiality of Alcohol and Drug Abuse Patient Records regulations: The Federal rules restrict any use of the information to criminally investigate or prosecute any alcohol or drug abuse patient.[facility] HospitalIn the event this information is protected by the Federal Confidentiality of Alcohol and Drug Abuse Patient Records regulations: The Federal rules restrict any use of the information to criminally investigate or prosecute any alcohol or drug abuse patient.[facility] HospitalIn the event this information is protected by the Federal Confidentiality of Alcohol and Drug Abuse Patient Records regulations: The Federal rules restrict any use of the information to criminally investigate or prosecute any alcohol or drug abuse patient.[facility] HospitalIn the event this information is protected by the Federal Confidentiality of Alcohol and Drug Abuse Patient Records regulations: The Federal rules restrict any use of the information to criminally investigate or prosecute any alcohol or drug abuse patient.[facility] HospitalIn the event this information is protected by the Federal Confidentiality of Alcohol and Drug Abuse Patient Records regulations: The Federal rules restrict any use of the information to criminally investigate or prosecute any alcohol or drug abuse patient.[facility] HospitalIn the event this information is protected by the Federal Confidentiality of Alcohol and Drug Abuse Patient Records regulations: The Federal rules restrict any use of the information to criminally investigate or prosecute any alcohol or drug abuse patient.[facility] HospitalIn the event this information is protected by the Federal Confidentiality of Alcohol and Drug Abuse Patient Records regulations: The Federal rules restrict any use of the information to criminally investigate or prosecute any alcohol or drug abuse patient.[facility] HospitalIn the event this information is protected by the Federal Confidentiality of Alcohol and Drug Abuse Patient Records regulations: The Federal rules restrict any use of the information to criminally investigate or prosecute any alcohol or drug abuse patient.[facility] HospitalIn the event this information is protected by the Federal Confidentiality of Alcohol and Drug Abuse Patient Records regulations: The Federal rules restrict any use of the information to criminally investigate or prosecute any alcohol or drug abuse patient.[facility] HospitalIn the event this information is protected by the Federal Confidentiality of Alcohol and Drug Abuse Patient Records regulations: The Federal rules restrict any use of the information to criminally investigate or prosecute any alcohol or drug abuse patient.[facility] HospitalIn the event this information is protected by the Federal Confidentiality of Alcohol and Drug Abuse Patient Records regulations: The Federal rules restrict any use of the information to criminally investigate or prosecute any alcohol or drug abuse patient.[facility] ClinicIn the event this information is protected by the Federal Confidentiality of Alcohol and Drug Abuse Patient Records regulations: The Federal rules restrict any use of the information to criminally investigate or prosecute any alcohol or drug abuse patient.[facility] HospitalIn the event this information is protected by the Federal Confidentiality of Alcohol and Drug Abuse Patient Records regulations: The Federal rules restrict any use of the information to criminally investigate or prosecute any alcohol or drug abuse patient.[facility] HospitalIn the event this information is protected by the Federal Confidentiality of Alcohol and Drug Abuse Patient Records regulations: The Federal rules restrict any use of the information to criminally investigate or prosecute any alcohol or drug abuse patient.[facility] HospitalIn the event this information is protected by the Federal Confidentiality of Alcohol and Drug Abuse Patient Records regulations: The Federal rules restrict any use of the information to criminally investigate or prosecute any alcohol or drug abuse patient.[facility] HospitalIn the event this information is protected by the Federal Confidentiality of Alcohol and Drug Abuse Patient Records regulations: The Federal rules restrict any use of the information to criminally investigate or prosecute any alcohol or drug abuse patient.[facility] HospitalIn the event this information is protected by the Federal Confidentiality of Alcohol and Drug Abuse Patient Records regulations: The Federal rules restrict any use of the information to criminally investigate or prosecute any alcohol or drug abuse patient.[facility] HospitalIn the event this information is protected by the Federal Confidentiality of Alcohol and Drug Abuse Patient Records regulations: The Federal rules restrict any use of the information to criminally investigate or prosecute any alcohol or drug abuse patient.[facility] HospitalIn the event this information is protected by the Federal Confidentiality of Alcohol and Drug Abuse Patient Records regulations: The Federal rules restrict any use of the information to criminally investigate or prosecute any alcohol or drug abuse patient.[facility] HospitalIn the event this information is protected by the Federal Confidentiality of Alcohol and Drug Abuse Patient Records regulations: The Federal rules restrict any use of the information to criminally investigate or prosecute any alcohol or drug abuse patient.[facility] HospitalIn the event this information is protected by the Federal Confidentiality of Alcohol and Drug Abuse Patient Records regulations: The Federal rules restrict any use of the information to criminally investigate or prosecute any alcohol or drug abuse patient.[facility] HospitalIn the event this information is protected by the Federal Confidentiality of Alcohol and Drug Abuse Patient Records regulations: The Federal rules restrict any use of the information to criminally investigate or prosecute any alcohol or drug abuse patient.[facility] HospitalIn the event this information is protected by the Federal Confidentiality of Alcohol and Drug Abuse Patient Records regulations: The Federal rules restrict any use of the information to criminally investigate or prosecute any alcohol or drug abuse patient.[facility] HospitalIn the event this information is protected by the Federal Confidentiality of Alcohol and Drug Abuse Patient Records regulations: The Federal rules restrict any use of the information to criminally investigate or prosecute any alcohol or drug abuse patient.[facility] HospitalIn the event this information is protected by the Federal Confidentiality of Alcohol and Drug Abuse Patient Records regulations: The Federal rules restrict any use of the information to criminally investigate or prosecute any alcohol or drug abuse patient.[facility] HospitalIn the event this information is protected by the Federal Confidentiality of Alcohol and Drug Abuse Patient Records regulations: The Federal rules restrict any use of the information to criminally investigate or prosecute any alcohol or drug abuse patient.[facility] HospitalIn the event this information is protected by the Federal Confidentiality of Alcohol and Drug Abuse Patient Records regulations: The Federal rules restrict any use of the information to criminally investigate or prosecute any alcohol or drug abuse patient.[facility] HospitalIn the event this information is protected by the Federal Confidentiality of Alcohol and Drug Abuse Patient Records regulations: The Federal rules restrict any use of the information to criminally investigate or prosecute any alcohol or drug abuse patient.[facility] HospitalIn the event this information is protected by the Federal Confidentiality of Alcohol and Drug Abuse Patient Records regulations: The Federal rules restrict any use of the information to criminally investigate or prosecute any alcohol or drug abuse patient.[facility] HospitalIn the event this information is protected by the Federal Confidentiality of Alcohol and Drug Abuse Patient Records regulations: The Federal rules restrict any use of the information to criminally investigate or prosecute any alcohol or drug abuse patient.[facility] HospitalIn the event this information is protected by the Federal Confidentiality of Alcohol and Drug Abuse Patient Records regulations: The Federal rules restrict any use of the information to criminally investigate or prosecute any alcohol or drug abuse patient.[facility] HospitalIn the event this information is protected by the Federal Confidentiality of Alcohol and Drug Abuse Patient Records regulations: The Federal rules restrict any use of the information to criminally investigate or prosecute any alcohol or drug abuse patient.[facility] HospitalIn the event this information is protected by the Federal Confidentiality of Alcohol and Drug Abuse Patient Records regulations: The Federal rules restrict any use of the information to criminally investigate or prosecute any alcohol or drug abuse patient.[facility] Reason for Visit (unrecogniz ed section and content) Reason Comments Physical Therapy PT Discharge Specialty Diagnoses / Procedures Referred By Contac t Referred To Contact PHYSICAL THERAPY Diagnoses Internal Reasons: Diagnosis: M47.816 (ICD-10-CM) - Lumbar spondylosis M54.50 (ICD-10-CM) - Low back pain without sciatica, unspecified back pain laterality, unspecified chronicity Procedures Internal Reasons: Diagnosis: M47.816 (ICD-10-CM) - Lumbar spondylosis M54.50 (ICD-10-CM) - Low back pain without sciatica, unspecified back pain laterality, [place] [address] [place] [id number] Pt [facility] [address] [place] [address] Referral ID Status Reason Start Date Expiration Date V isits Requested Visits Authorized [id number] Authorized 04/22/2023 04/21/2024 99 99 Reason Comments Physical Therapy Reason Comments PT Eval Specialty Diagnoses / Procedures Referred By Contac t Referred To Contact [facility] Diagnoses Lumbar neuritis Lumbar radiculopathy Chronic bilateral low back pain with left-sided sciatica Procedures CONSULT TO PHYSICAL THERAPY PHYSICAL THERAPY [facility] [address] [place] [address] [place] [address] [facility] [address] [place] [address] Referral ID Status Reason Start Date Expiration Date Visits Requested Visits Authorized [id number] Authorized PCP Requested Referral Auto-Generate d Referral 01/29/2024 01/23/2025 99 99 Reason Comments Consult Specialty Diagnoses / Procedures Referred By Contac t Referred To Contact Ent - Otolaryngology Diagnoses Neck pain Dysphagia, unspecified type Procedures CONSULT TO ENT OFFICE/OUTPATIENT [facility] 60 MINUTES Emilee Condon MD [address] [place] [address] John Barrett MD [address] [place] [id number] Referral ID Status Reason Start Date Expiration Date V isits Requested Visits Authorized [id number] Closed PCP Requested Referral 08/19/2023 08/18/2024 1 1 Specialty Diagnoses / Procedures Referred By Contac t Referred To Contact Diagnoses Lumbar spondylosis Low back pain without sciatica, unspecified back pain laterality, unspecified chronicity Procedures CONSULT [place] [address] [place] [id number] Referral ID Status Reason Start Date Expiration Date V isits Requested Visits Authorized [id number] Authorized 01/30/2023 04/30/2023 99 99 Reason Comments PT Progress Note Reason Comments PT Discharge Specialty Diagnoses / Procedures Referred By Contac t Referred To Contact [facility] Diagnoses Chronic pain of both shoulders Procedures CONSULT TO PHYSICAL THERAPY PHYSICAL THERAPY EVALUATION H[facility]X [address] [place] [address] [place] [address] [facility] [address] [place] [address] Referral ID Status Reason Start Date Expiration Date Visits Requested Visits Authorized [id number] Authorized PCP Requested Referral Auto-Generate d Referral 01/24/2022 01/24/2023 99 99 Reason Comments Patient Update FYI-No Action Needed Reason Comments Established NI Patient 3 month follow up Reason Comments F/U 6 months Reason Comments Overdose Reason Comments Established Patient Reason Comments Headache X3 days pain rated 3 , nasal congestion Reason Comments Appointment Reason Comments Joint Pain Reason Comments heart palpatations Reason Onset Date Comments Refill Request 02/26/2022 Reason Comments Consult Reason Comments Orders Reason Comments F/U 6 months Reason Comments Breast Problem Specialty Diagnoses / Procedures Referred By Contac t Referred To Contact Gynecology Diagnoses Thyroid nodule Procedures CONSULT TO GYNECOLOGY OFFICE/OUTPATIENT [facility] 60-74 MINUTES Kasie Limon, RACE CAR DRIVER.COMMERCIAL CARPENTER [address] [place] [address] Referral ID Status Reason Start Date Expiration Date V isits Requested Visits Authorized [id number] Closed PCP Requested Referral Auto-Generated Referral 03/02/2022 02/27/2023 1 1 Reason Comments Medication Problem Reason Onset Date Comments Refill Request 05/27/2022 Reason Comments Consult Colonoscopy consult Specialty Diagnoses / Procedures Referred By Contac t Referred To Contact General Surgery Diagnoses Colon cancer screening Procedures CONSULT TO GENERAL SURGERY OFFICE/OUTPATIENT [facility] 60-74 MINUTES Sarina Reeves, RACE CAR DRIVER.WEIGHT TRAINING INSTRUCTOR [address] [place] [address] Referral ID Status Reason Start Date Expiration Date V isits Requested Visits Authorized [id number] Closed PCP Requested Referral 06/19/2022 06/19/2023 1 1 Reason Comments Consult Specialty Diagnoses / Procedures Referred By Contac t Referred To Contact Endocrinology Diagnoses Thyroid nodule greater than or equal to 1 cm in diameter incidentally noted on imaging study Procedures CONSULT TO ENDOCRINOLOGY OFFICE/OUTPATIENT [facility] 60-74 MINUTES Larry Darnell MD [address] [place] [address], [address] [place] [address] Referral ID Status Reason Start Date Expiration Date V isits Requested Visits Authorized [id number] Closed PCP Requested Referral 03/12/2022 03/12/2023 1 1 Reason Comments Trauma Fell on left side ye sterday, injured left wrist, painful Reason Onset Date Comments Refill Request 08/28/2022 Reason Comments Follow Up procedure Reason Comments Follow Up Reason Comments Inflammatory Arthritis Reason Comments medication side effects Reason Comments Physical Reason Comments New Patient Evaluation States a low back pain with intermittent left leg numbness for about 1 year. 3/10 pain today. Low Back Pain Numbness/Tingling Specialty Diagnoses / Procedures Referred By Contac t Referred To Contact [facility] Diagnoses Lumbar spondylosis Low back pain without sciatica, unspecified back pain laterality, unspecified chronicity Procedures CONSULT TO SPINE MEDICAL CENTER OFFICE/OUTPATIENT [facility] 60-74 MINUTES Prince [place], RACE CAR DRIVER.WEIGHT TRAINING INSTRUCTOR [address] [place] [phone] Referral ID Status Reason Start Date Expiration Date V isits Requested Visits Authorized [id number] Closed PCP Requested Referral 10/10/2022 10/10/2023 1 1 Reason Comments Orders Reason Comments Radiology CT Specialty Diagnoses / Procedures Referred By Contac t Referred To Contact CT IMAGING Diagnoses Bilateral lower extremity edema GARCIA (dyspnea on exertion) Intermittent palpitations Procedures CT CHEST WO IVCON DIAGNOSTIC COMPUTED TOMOGRAPHY THORAX W/O Emilee Hudson MD [address] [place] [address] [place] [address] Referral ID Status Reason Start Date Expiration Date V isits Requested Visits Authorized [id number] Closed Auto-Generate d Referral 02/22/2022 03/24/2023 1 1 Reason Comments Radiology US Specialty Diagnoses / Procedures Referred By Contac t Referred To Contact US IMAGING Diagnoses Thyroid nodule greater than or equal to 1 cm in diameter incidentally noted on imaging study Procedures US THYROID/PARATHYROID US SOFT TISSUE HEAD & NECK REAL TIME IMGE Sarina Roldan APRN.WEIGHT TRAINING INSTRUCTOR [address] [place] [address] [place] [address] Referral ID Status Reason Start Date Expiration Date V isits Requested Visits Authorized [id number] Closed Auto-Generate d Referral 03/02/2022 04/01/2023 1 1 Reason Onset Date Comments Population Health Navigation Outreach 03/18/2023 ACO CARE GAPS Reason Comments Biopsy Request Reason Onset Date Comments Refill Request 05/23/2023 Reason Comments Thyroid Nodule Reason Comments Results Reason Comments Established Patient 145/86 Reason Comments Appointment Orders Reason Comments Follow Up Follow-Up to PT/Left Leg Numbness/Low Back Pain Reason Onset Date Comments Refill Request 11/28/2023 Reason Comments Medicare Wellness Exam Reason Comments Follow Up 6 month follow up RL S, NELI, pap therapy Specialty Diagnoses / Procedures Referred By Contac t Referred To Contact MR IMAGING Diagnoses Spinal stenosis of lumbar region with neurogenic claudication Spinal stenosis of lumbar region without neurogenic claudication Weakness of left lower extremity Procedures MRI LUMBAR SPINE WO IVCON MRI SPINAL CANAL LUMBAR W/[place] [address] [place] [phone] [place] [address] Referral ID Status Reason Start Date Expiration Date V isits Requested Visits Authorized [id number] Closed Auto-Generate d Referral 10/18/2023 11/16/2024 1 1 Reason Comments Radio Gen RMP Specialty Diagnoses / Procedures Referred By Contac t Referred To Contact XR IMAGING Diagnoses Stiffness of hand joint, unspecified laterality Procedures XR HAND GENERAL 3V PA/LAT/OBL BILATERAL RADEX HAND MINIMUM 3 VIEWS [place], RACE CAR DRIVER.WEIGHT TRAINING INSTRUCTOR [address] [place] [address] [place] [address] Referral ID Status Reason Start Date Expiration Date V isits Requested Visits Authorized [id number] Closed Auto-Generate d Referral 09/13/2023 10/12/2024 1 1 Reason Comments Radio Gen RMP Radiology Service Pr ogress NotePATIENT NAME: Priscilla RamosMRN: [id number] OF SERVICE: August 20, 2022TIME: 4:04 PMPATIENT IDENTITY VERIFICATION COMPLETED USING TWO (2) IDENTIFIERS: Name and Date of confirmed by patient verbally.FALL SCREENING: Has the patient had 2 falls in the last year or 1 fall with injury or currently using an Ambulatory Assistive Device (Walker, Cane, Wheelchair, Crutches, etc.)? NoPATIENT GENDER DATA: Female. status: : No [place] Specialty Diagnoses / Procedures Referred By Contac t Referred To Contact XR IMAGING Diagnoses Wrist injury, left, initial encounter Procedures XR WRIST GENERAL 3V PA/LAT/OBL LEFT RADEX WRIST COMPLETE MINIMUM 3 VIEWS Caesar Garcia PA-C [address] [address] [place] [address] Referral ID Status Reason Start Date Expiration Date V isits Requested Visits Authorized [id number] Closed Auto-Generate d Referral 08/20/2022 09/19/2023 1 1 Reason Comments Follow Up EMG Had emg on 11/13/23 Results - Mri Had mri lumbar on 11/27/23 Low Back Pain States a low back pa in with intermittent left leg numbness. Pain 4/10 Specialty Diagnoses / Procedures Referred By Contac t Referred To Contact XR IMAGING Diagnoses Pain in joint, multiple sites Procedures XR HAND GENERAL 3V PA/LAT/OBL BILAT X-RAY HAND MINIMUM [address] [place] [address] [place] [address] [place] [address] Referral ID Status Reason Start Date Expiration Date V isits Requested Visits Authorized [id number] Closed Auto-Generate d Referral 12/14/2020 01/13/2022 1 1 Reason Comments Schedule Injection Physical Therapy Reason Comments Preparations For Procedures Reason Comments Urinary Symptoms Reason Comments UTI Reason Comments Radiology US Specialty Diagnoses / Procedures Referred By Contac t Referred To Contact US IMAGING Diagnoses Multiple thyroid nodules Procedures US THYROID/PARATHYROID US SOFT TISSUE HEAD & NECK REAL TIME IMGE Vivien Wynne MD [address] [address] [place] [address] Referral ID Status Reason Start Date Expiration Date V isits Requested Visits Authorized [id number] Closed Auto-Generate d Referral 02/21/2024 06/29/2024 1 1 Reason Comments UTI symptoms not cleared Reason Comments Inflammatory Arthritis Reason Comments Patient Update Reason Comments Urinary Frequency burning with urinati on x 1 day Reason Onset Date Comments Refill Request 05/18/2024 Reason Comments Established Patient NELI, RLS- c/o still being tired throughout the day Reason Comments Opened In Error Reason Comments Dizziness Reason Onset Date Comments Refill Request 05/05/2024 Opened In Error 05/05/2024 Reason Comments F/U 6 months discuss lab results complaints of fatigue all the time Reason Comments Hospital F/U [facility] 06/30/2024 Reason Comments Assessment Patient Education Reason Onset Date Comments Refill Request 08/19/2024 Reason Comments Cough Chest congestion, si nus pressure and pain, fatigue, drainage, SOB, x 4 days Reason Comments Follow Up For UC visit 08/21/24; Ful lness in the RIGHT hilum Reason Comments Urinary Problem Burning and urgency x 3 days Reason Comments Reassessment Patient Education Reason Onset Date Comments Refill Request 09/22/2024 Reason Onset Date Comments Results 08/17/2024 Care Teams (unrecognized sec tion and content) Weight Reducing Technician Relationship Specialty Start Date End Date Emilee Condon MD [address] [place] [address] PCP - General 08/01/00 Weight Reducing Technician Relationship Specialty Start Date End Date Emilee Condon MD [address] [place] [address] PCP - General 08/01/00 Weight Reducing Technician Relationship Specialty Start Date End Date Emilee Condon MD [address] [place], [place] [address] PCP - General 08/01/00 Weight Reducing Technician Relationship Specialty Start Date End Date Emilee Condon MD [address] [place] [address] PCP - General 08/01/00 Weight Reducing Technician Relationship Specialty Start Date End Date Emilee Condon MD [address] [facility] [address] PCP - General 08/01/00 Weight Reducing Technician Relationship Specialty Start Date End Date Emilee Condon MD [address] [place] [address], [place] [address] PCP - General 08/01/00 Weight Reducing Technician Relationship Specialty Start Date End Date Emilee Condon MD [address] [place] [address], [place] [address] PCP - General 08/01/00 Weight Reducing Technician Relationship Specialty Start Date End Date Emilee Condon MD [address] [place] [address], [place] [address] PCP - General 08/01/00 Weight Reducing Technician Relationship Specialty Start Date End Date Emilee Condon MD [address] [place] [address], [place] [address] PCP - General 08/01/00 Weight Reducing Technician Relationship Specialty Start Date End Date Emilee Condon MD [address] [place] [address], [place] [address] PCP - General 08/01/00 Weight Reducing Technician Relationship Specialty Start Date End Date Emilee Condon MD [address] [place] [address], [place] [address] PCP - General 08/01/00 Weight Reducing Technician Relationship Specialty Start Date End Date Emilee Condon MD [address] [place] [address], [place] [address] PCP - General 08/01/00 Weight Reducing Technician Relationship Specialty Start Date End Date Emilee Condon MD [address] [place] [address], [place] [address] PCP - General 08/01/00 Weight Reducing Technician Relationship Specialty Start Date End Date Emilee Condon MD [address] [facility] [place] [address] PCP - General 08/01/00 Weight Reducing Technician Relationship Specialty Start Date End Date Emilee Condon MD [address] [facility] [address] PCP - General 08/01/00 Weight Reducing Technician Relationship Specialty Start Date End Date Emilee Condon MD [address] [place] [address], [place] [address] PCP - General 08/01/00 Weight Reducing Technician Relationship Specialty Start Date End Date Emilee Condon MD [address] [place] [address], [place] [address] PCP - General 08/01/00 Weight Reducing Technician Relationship Specialty Start Date End Date Emilee Condon MD [address] [place] [address], [place] [address] PCP - General 08/01/00 Weight Reducing Technician Relationship Specialty Start Date End Date Emilee Condon MD [address] [place] [address], [place] [address] PCP - General 08/01/00 Weight Reducing Technician Relationship Specialty Start Date End Date Emilee Condon MD [address] [place] [address], [place] [address] PCP - General 08/01/00 Weight Reducing Technician Relationship Specialty Start Date End Date Emilee Condon MD [address] [place] [address], [place] [address] PCP - General 08/01/00 Weight Reducing Technician Relationship Specialty Start Date End Date Emilee Condon MD [address] [place] [address], [place] [address] PCP - General 08/01/00 Weight Reducing Technician Relationship Specialty Start Date End Date Emilee Condon MD [address] [place] [address] PCP - General 08/01/00 Team Status: Active Member Role Status Dates Dr. Emilee Condon MD Family Provider Active Dr. Emilee Condon MD Primary Care Provider Active Team Status: Inactive Member Role Status Dates Dr. Emilee Condon MD Primary Care Provider Active Brody Shannon MD Emergency Provider Active Team Status: Inactive Member Role Status Dates Dr. Emilee Condon MD Primary Care Provider, Referr ing Provider Active Dr. Francisco Javier Gaming MD Attending Provider Active Team Status: Active Member Role Status Dates Dr. Emilee Condon MD Primary Care Provider Active Dr. Francisco Javier Gaming MD Attending Provider, Other Provide r Active Team Status: Inactive Member Role Status Dates Dr. Emilee Condon MD Primary Care Provider Active Brody Shannon MD Attending Provider, Emergency Provid er Active Team Status: Inactive Member Role Status Dates Dr. Emilee Condon MD Primary Care Provider Active Dr. Francisco Javier Gaming MD Attending Provider Active Team Status: Inactive Member Role Status Dates Dr. Emilee Condon MD Primary Care Provider Active Dr. Francisco Javier Gaming MD Attending Provider, Referring Pro vider Active Team Status: Inactive Member Role Status Dates Dr. Emilee Condon MD Primary Care Provider Active Dr. Princess Fuentes MD Emergency Provider Active Weight Reducing Technician Relationship Specialty Start Date End Date Emilee Condon MD [address] [place] [address] PCP - General 08/01/00 Weight Reducing Technician Relationship Specialty Start Date End Date Emilee Condon MD [address] [place], [place] [id number] PCP - General 08/01/00 Team Status: Inactive Member Role Status Dates Dr. Emilee Condon MD Primary Care Provider, Referr ing Provider Active Cristian Coffman DEVELOPMENT DIRECTOR, DEVELOPMENT DIRECTOR-C Attending Provider Active Team Status: Active Member Role Status Dates Dr. Emilee Condon MD Primary Care Provider Active Dr. Jordi Duarte MD Attending Provider Active Team Status: Inactive Member Role Status Dates Dr. Emilee Condon MD Primary Care Provider Active Dr. Princess Fuentes MD Attending Provider, Emergency Provider Active Team Status: Inactive Member Role Status Dates Dr. Emilee Condon MD Primary Care Provider Active Cristian Coffman DEVELOPMENT DIRECTOR, DEVELOPMENT DIRECTOR-C Attending Provider, Referring Pro vider Active Weight Reducing Technician Relationship Specialty Start Date End Date Emilee Condon MD [address] [facility] [place] [address] PCP - General 08/01/00 Team Status: Active Member Role Status Dates Dr. Emilee Condon MD Primary Care Provider Active Cristian Coffman DEVELOPMENT DIRECTOR, DEVELOPMENT DIRECTOR-C Attending Provider, Referring Pro vider Active Weight Reducing Technician Relationship Specialty Start Date End Date Emilee Condon MD [address] [facility] [place] [address] PCP - General 08/01/00 Weight Reducing Technician Relationship Specialty Start Date End Date Emilee Condon MD [address] [facility] [place] [address] PCP - General 08/01/00 Weight Reducing Technician Relationship Specialty Start Date End Date Emilee Condon MD [address] [facility] [place] [address] PCP - General 08/01/00 Weight Reducing Technician Relationship Specialty Start Date End Date Emilee Condon MD [address] [facility] [place] [address] PCP - General 08/01/00 Weight Reducing Technician Relationship Specialty Start Date End Date Emilee Condon MD [address] [facility] [place] [address] PCP - General 08/01/00 Weight Reducing Technician Relationship Specialty Start Date End Date Emilee Condon MD [address] [place] [address] PCP - General 08/01/00 Weight Reducing Technician Relationship Specialty Start Date End Date Emilee Condon MD [address] [place] [address] PCP - General 08/01/00 Weight Reducing Technician Relationship Specialty Start Date End Date Emilee Condon MD [address] [place] [address] PCP - General 08/01/00 Weight Reducing Technician Relationship Specialty Start Date End Date Emilee Condon MD [address] [place] [address] PCP - General 08/01/00 Weight Reducing Technician Relationship Specialty Start Date End Date Emilee Condon MD [address] [place] [address] PCP - General 08/01/00 Weight Reducing Technician Relationship Specialty Start Date End Date Emilee Condon MD [address] [place] [address] PCP - General 08/01/00 Weight Reducing Technician Relationship Specialty Start Date End Date Emilee Condon MD [address] [place] [address] PCP - General 08/01/00 Weight Reducing Technician Relationship Specialty Start Date End Date Emilee Condon MD [address] [place] [address] PCP - General 08/01/00 Weight Reducing Technician Relationship Specialty Start Date End Date Emilee Condon MD [address] [place] [address] PCP - General 08/01/00 Weight Reducing Technician Relationship Specialty Start Date End Date Emilee Condon MD [address] [place] [address] PCP - General 08/01/00 Weight Reducing Technician Relationship Specialty Start Date End Date Emilee Condon MD [address] [place] [address] PCP - General 08/01/00 Weight Reducing Technician Relationship Specialty Start Date End Date Emilee Condon MD [address] [place] [address] PCP - General 08/01/00 Weight Reducing Technician Relationship Specialty Start Date End Date Emilee Condon MD [address] [place] [address] PCP - General 08/01/00 Weight Reducing Technician Relationship Specialty Start Date End Date Emilee Condon MD [address] [place] [address] PCP - General 08/01/00 Weight Reducing Technician Relationship Specialty Start Date End Date Emilee Condon MD [address] [place] [address] PCP - General 08/01/00 Weight Reducing Technician Relationship Specialty Start Date End Date Emilee Condon MD [address] [place] [address] PCP - General 08/01/00 Weight Reducing Technician Relationship Specialty Start Date End Date Emilee Condon MD [address] [place] [address] PCP - General 08/01/00 Weight Reducing Technician Relationship Specialty Start Date End Date Emilee Condon MD [address] [place] [address] PCP - General 08/01/00 Weight Reducing Technician Relationship Specialty Start Date End Date Emilee Condon MD [address] [place] [address] PCP - General 08/01/00 Weight Reducing Technician Relationship Specialty Start Date End Date Emilee Condon MD [address] [place] [address] PCP - General 08/01/00 Weight Reducing Technician Relationship Specialty Start Date End Date Emilee Condon MD [address] [place] [address] PCP - General 08/01/00 Weight Reducing Technician Relationship Specialty Start Date End Date Emilee Condon MD [address] [place] [address] PCP - General 08/01/00 Weight Reducing Technician Relationship Specialty Start Date End Date Emilee Condon MD [address] [place] [address] PCP - General 08/01/00 Weight Reducing Technician Relationship Specialty Start Date End Date Emilee Condon MD [address] [place] [address] PCP - General 08/01/00 Weight Reducing Technician Relationship Specialty Start Date End Date Emilee Condon MD [address] [place] [address] PCP - General 08/01/00 Weight Reducing Technician Relationship Specialty Start Date End Date Emilee Condon MD [address] [place] [address] PCP - General 08/01/00 Weight Reducing Technician Relationship Specialty Start Date End Date Emilee Condon MD [address] [place] [address] PCP - General 08/01/00 Weight Reducing Technician Relationship Specialty Start Date End Date Emilee Condon MD [address] [place] [address] PCP - General 08/01/00 Weight Reducing Technician Relationship Specialty Start Date End Date Emilee Condon MD [address] [place] [address] PCP - General 08/01/00 Weight Reducing Technician Relationship Specialty Start Date End Date Emilee Condon MD [address] [place] [address] PCP - General 08/01/00 Weight Reducing Technician Relationship Specialty Start Date End Date Emilee Condon MD [address] [place] [address] PCP - General 08/01/00 Weight Reducing Technician Relationship Specialty Start Date End Date Emilee Condon MD [address] [place] [address] PCP - General 08/01/00 Weight Reducing Technician Relationship Specialty Start Date End Date Emilee Condon MD [address] [place] [address] PCP - General 08/01/00 Weight Reducing Technician Relationship Specialty Start Date End Date Emilee Condon MD [address] [place] [address] PCP - General 08/01/00 Weight Reducing Technician Relationship Specialty Start Date End Date Emilee Condon MD [address] [place] [address] PCP - General 08/01/00 Weight Reducing Technician Relationship Specialty Start Date End Date Emilee Condon MD [address] [place] [address] PCP - General 08/01/00 Weight Reducing Technician Relationship Specialty Start Date End Date Emilee Condon MD [address] [place] [address] PCP - General 08/01/00 Weight Reducing Technician Relationship Specialty Start Date End Date Emilee Condon MD [address] [place] [address] PCP - General 08/01/00 Weight Reducing Technician Relationship Specialty Start Date End Date Emilee Condon MD [address] [place] [address] PCP - General 08/01/00 Weight Reducing Technician Relationship Specialty Start Date End Date Emilee Condon MD [address] [facility] [place] [address] PCP - General 08/01/00 Weight Reducing Technician Relationship Specialty Start Date End Date Emilee Condon MD [address] [place] [address] PCP - General 08/01/00 Kasie Limon, RACE CAR DRIVER.COMMERCIAL CARPENTER [address] [place] [address] Extractor And Wringer Operator Internal Medicine 03/30/24 Sarina Reeves RACE CAR DRIVER.WEIGHT TRAINING INSTRUCTOR [address] [place] [address] Extractor And Wringer Operator Internal Medicine 03/30/24 Weight Reducing Technician Relationship Specialty Start Date End Date Emilee Condon MD [address] [place] [address] PCP - General 08/01/00 Kasie Limon, RACE CAR DRIVER.COMMERCIAL CARPENTER [address] [place] [address] Extractor And Wringer Operator Internal Medicine 03/30/24 Sarina Reeves RACE CAR DRIVER.WEIGHT TRAINING INSTRUCTOR [address] [place] [address] Extractor And Wringer Operator Internal Medicine 03/30/24 Weight Reducing Technician Relationship Specialty Start Date End Date Emilee Condon MD [address] [place] [address] PCP - General 08/01/00 Kasie Limon, RACE CAR DRIVER.COMMERCIAL CARPENTER [address] [place] [address] Extractor And Wringer Operator Internal Medicine 03/30/24 Sarina Reeves APRN.WEIGHT TRAINING INSTRUCTOR [address] [place] [address] Extractor And Wringer Operator Internal Medicine 03/30/24 Weight Reducing Technician Relationship Specialty Start Date End Date Emilee Condon MD [address] [place] [address] PCP - General 08/01/00 Kasie Limon, RACE CAR DRIVER.COMMERCIAL CARPENTER [address] [place] [address] Extractor And Wringer Operator Internal Medicine 03/30/24 Sarina Reeves RACE CAR DRIVER.WEIGHT TRAINING INSTRUCTOR [address] [place] [address] [facility] Internal Medicine 03/30/24 Weight Reducing Technician Relationship Specialty Start Date End Date Emilee Condon MD [address] [place] [address] PCP - General 08/01/00 Kasie Limon, RACE CAR DRIVER.COMMERCIAL CARPENTER [address] [place] [address] Extractor And Wringer Operator Internal Medicine 03/30/24 Sarina Reeves RACE CAR DRIVER.WEIGHT TRAINING INSTRUCTOR [address] [place] [address] [facility] Internal Medicine 03/30/24 Weight Reducing Technician Relationship Specialty Start Date End Date Emilee Condon MD [address] [place] [address] PCP - General 08/01/00 Kasie Limon, RACE CAR DRIVER.COMMERCIAL CARPENTER [address] [place] [address] Extractor And Wringer Operator Internal Medicine 03/30/24 Sarina Reeves RACE CAR DRIVER.WEIGHT TRAINING INSTRUCTOR [address] [place] [address] Extractor And Wringer Operator Internal Medicine 03/30/24 Weight Reducing Technician Relationship Specialty Start Date End Date Emilee Condon MD [address] [facility] [place] [address] PCP - General 08/01/00 Kasie Limon, RACE CAR DRIVER.COMMERCIAL CARPENTER [address] [place] [address] Extractor And Wringer Operator Internal Medicine 03/30/24 Sarina Reeves RACE CAR DRIVER.WEIGHT TRAINING INSTRUCTOR [address] [place] [address] Extractor And Wringer Operator Internal Medicine 03/30/24 Weight Reducing Technician Relationship Specialty Start Date End Date Emilee Condon MD [address] [place] [address] PCP - General 08/01/00 Kasie Limon, RACE CAR DRIVER.COMMERCIAL CARPENTER [address] [place] [address] Extractor And Wringer Operator Internal Medicine 03/30/24 Sarina Reeves RACE CAR DRIVER.WEIGHT TRAINING INSTRUCTOR [address] [place] [address] Extractor And Wringer Operator Internal Medicine 03/30/24 Weight Reducing Technician Relationship Specialty Start Date End Date Emilee Condon MD [address] [facility] [place] [address] PCP - General 08/01/00 Kasie Limon, RACE CAR DRIVER.COMMERCIAL CARPENTER [address] [place] [address] Extractor And Wringer Operator Internal Medicine 03/30/24 Sarina Reeves RACE CAR DRIVER.WEIGHT TRAINING INSTRUCTOR [address] [place] [address] Extractor And Wringer Operator Internal Medicine 03/30/24 Weight Reducing Technician Relationship Specialty Start Date End Date Emilee Condon MD [address] [place] [address] PCP - General 08/01/00 Kasie Limon, RACE CAR DRIVER.COMMERCIAL CARPENTER [address] [facility] [place] [address] Extractor And Wringer Operator Internal Medicine 03/30/24 Sarina Reeves RACE CAR DRIVER.WEIGHT TRAINING INSTRUCTOR [address] [place] [address] Extractor And Wringer Operator Internal Medicine 03/30/24 Weight Reducing Technician Relationship Specialty Start Date End Date Emilee Condon MD [address] [place] [address] PCP - General 08/01/00 Kasie Limon, RACE CAR DRIVER.COMMERCIAL CARPENTER [address] [place] [address] Extractor And Wringer Operator Internal Medicine 03/30/24 Sarina Reeves RACE CAR DRIVER.WEIGHT TRAINING INSTRUCTOR [address] [facility] [place] [address] Extractor And Wringer Operator Internal Medicine 03/30/24 Weight Reducing Technician Relationship Specialty Start Date End Date Emilee Condon MD [address] [facility] [place] [address] PCP - General 08/01/00 Kasie Limon, RACE CAR DRIVER.COMMERCIAL CARPENTER [address] [facility] [place] [address] Extractor And Wringer Operator Internal Medicine 03/30/24 Sarina Reeves RACE CAR DRIVER.WEIGHT TRAINING INSTRUCTOR [address] [facility] [place] [address] [facility] Internal Medicine 03/30/24 Weight Reducing Technician Relationship Specialty Start Date End Date Emilee Condon MD [address] [facility] [place] [address] PCP - General 08/01/00 Kasie Limon, RACE CAR DRIVER.COMMERCIAL CARPENTER [address] [facility] [place] [address] Extractor And Wringer Operator Internal Medicine 03/30/24 Sarina Reeves RACE CAR DRIVER.WEIGHT TRAINING INSTRUCTOR [address] [facility] [place] [address] [facility] Internal Medicine 07/14/24 Weight Reducing Technician Relationship Specialty Start Date End Date Emilee Condon MD [address] [facility] [place] [address] PCP - General 08/01/00 Kasie Limon, RACE CAR DRIVER.COMMERCIAL CARPENTER [address] [facility] [place] [address] Extractor And Wringer Operator Internal Medicine 03/30/24 Sarina Reeves RACE CAR DRIVER.WEIGHT TRAINING INSTRUCTOR [address] [place] [address] Extractor And Wringer Operator Internal Medicine 07/14/24 Weight Reducing Technician Relationship Specialty Start Date End Date Emilee Condon MD [address] [place] [address] PCP - General 08/01/00 Kasie Limon, RACE CAR DRIVER.COMMERCIAL CARPENTER [address] [facility] [place] [address] Extractor And Wringer Operator Internal Medicine 03/30/24 Sarina Reeves APRN.WEIGHT TRAINING INSTRUCTOR [address] [facility] [place] [address] Extractor And Wringer Operator Internal Medicine 07/14/24 Weight Reducing Technician Relationship Specialty Start Date End Date Emilee Condon MD [address] [place] [address] PCP - General 08/01/00 Kasie Limon, RACE CAR DRIVER.COMMERCIAL CARPENTER [address] [place] [address] Extractor And Wringer Operator Internal Medicine 03/30/24 Sarina Reeves RACE CAR DRIVER.WEIGHT TRAINING INSTRUCTOR [address] [place] [address] Extractor And Wringer Operator Internal Medicine 07/14/24 Weight Reducing Technician Relationship Specialty Start Date End Date Emilee Condon MD [address] [place] [address] PCP - General 08/01/00 Kasie Limon, RACE CAR DRIVER.COMMERCIAL CARPENTER [address] [place] [address] Extractor And Wringer Operator Internal Medicine 03/30/24 Sarina Reeves RACE CAR DRIVER.WEIGHT TRAINING INSTRUCTOR [address] [place] [address] Extractor And Wringer Operator Internal Medicine 07/14/24 Weight Reducing Technician Relationship Specialty Start Date End Date Emilee Condon MD [address] [place] [address] PCP - General 08/01/00 Kasie Limon, RACE CAR DRIVER.COMMERCIAL CARPENTER [address] [facility] [place] [address] Extractor And Wringer Operator Internal Medicine 03/30/24 Sarina Reeves RACE CAR DRIVER.WEIGHT TRAINING INSTRUCTOR [address] [facility] [place] [address] Extractor And Wringer Operator Internal Medicine 07/14/24 Weight Reducing Technician Relationship Specialty Start Date End Date Emilee Condon MD [address] [facility] [place] [address] PCP - General 08/01/00 Sarina Reeves, RACE CAR DRIVER.WEIGHT TRAINING INSTRUCTOR [address] [facility] [place] [address] Extractor And Wringer Operator Internal Medicine 07/14/24 Kasie Limon, RACE CAR DRIVER.COMMERCIAL CARPENTER [address] [place] [address] Extractor And Wringer Operator Internal Medicine 09/09/24 Weight Reducing Technician Relationship Specialty Start Date End Date Emilee Condon MD [address] [facility] [place] [address] PCP - General 08/01/00 Kasie Limon, RACE CAR DRIVER.COMMERCIAL CARPENTER [address] [facility] [place] [address] Extractor And Wringer Operator Internal Medicine 03/30/24 09/08/24 Sarina Reeves, RACE CAR DRIVER.WEIGHT TRAINING INSTRUCTOR [address] [facility] [place] [address] Extractor And Wringer Operator Internal Medicine 07/14/24 Weight Reducing Technician Relationship Specialty Start Date End Date Emilee Condon MD [address] [facility] [place] [address] PCP - General 08/01/00 Sarina Reeves RACE CAR DRIVER.WEIGHT TRAINING INSTRUCTOR [address] [facility] [place] [address] Extractor And Wringer Operator Internal Medicine 07/14/24 Kasie Limon, RACE CAR DRIVER.COMMERCIAL CARPENTER [address] [facility] [place] [address] [facility] Internal Medicine 09/09/24 Weight Reducing Technician Relationship Specialty Start Date End Date Emilee Condon MD [address] [facility] [place] [address] PCP - General 08/01/00 Sarina Reeves RACE CAR DRIVER.WEIGHT TRAINING INSTRUCTOR [address] [facility] [place] [address] [facility] Internal Medicine 07/14/24 Kasie Limon, RACE CAR DRIVER.COMMERCIAL CARPENTER [address] [facility] [place] [address] [facility] Internal Medicine 09/09/24 Weight Reducing Technician Relationship Specialty Start Date End Date Emilee Condon MD [address] [place] [address] PCP - General 08/01/00 Sarina Reeves APRN.WEIGHT TRAINING INSTRUCTOR [address] [place] [address] Extractor And Wringer Operator Internal Medicine 07/14/24 Kasie Limon APRN.COMMERCIAL CARPENTER [address] [facility] [place] [address] Extractor And Wringer Operator Internal Medicine 09/09/24 Weight Reducing Technician Relationship Specialty Start Date End Date Emilee Condon MD [address] [facility] [place] [address] PCP - General 08/01/00 Sarina Reeves APRN.WEIGHT TRAINING INSTRUCTOR [address] [facility] [place] [address] Extractor And Wringer Operator Internal Medicine 07/14/24 Kasie Limon APRN.COMMERCIAL CARPENTER [address] [facility] [place] [address] Extractor And Wringer Operator Internal Medicine 09/09/24 Weight Reducing Technician Relationship Specialty Start Date End Date Emilee Condon MD [address] [facility] [place] [address] PCP - General 08/01/00 Sarina Reeves APRN.WEIGHT TRAINING INSTRUCTOR [address] [facility] [place] [address] Extractor And Wringer Operator Internal Medicine 07/14/24 Kasie Limon, RACE CAR DRIVER.COMMERCIAL CARPENTER [address] [facility] [place] [address] Extractor And Wringer Operator Internal Medicine 09/09/24 Weight Reducing Technician Relationship Specialty Start Date End Date Emilee Condon MD [address] [facility] [place] [address] PCP - General 08/01/00 Sarina Reeves RACE CAR DRIVER.WEIGHT TRAINING INSTRUCTOR [address] [facility] [place] [address] Extractor And Wringer Operator Internal Medicine 07/14/24 Kasie Limon, RACE CAR DRIVER.COMMERCIAL CARPENTER [address] [facility] [place] [address] [facility] Internal Medicine 09/09/24 Weight Reducing Technician Relationship Specialty Start Date End Date Emilee Condon MD [address] [place] [address] PCP - General 08/01/00 Kasie Limon, RACE CAR DRIVER.COMMERCIAL CARPENTER [address] [place] [address] Extractor And Wringer Operator Internal Medicine 03/30/24 09/08/24 Sarina Reeves, RACE CAR DRIVER.WEIGHT TRAINING INSTRUCTOR [address] [facility] [place] [address] Extractor And Wringer Operator Internal Medicine 07/14/24 Kasie Limon, RACE CAR DRIVER.COMMERCIAL CARPENTER [address] [facility] [place] [address] [facility] Internal Medicine 09/09/24 Weight Reducing Technician Relationship Specialty Start Date End Date Emilee Condon MD [address] [place] [address] PCP - General 08/01/00 Sarina Reeves RACE CAR DRIVER.WEIGHT TRAINING INSTRUCTOR [address] [place], [place] [address] Extractor And Wringer Operator Internal Medicine 07/14/24 Kasie Limon, KEENAN.COMMERCIAL CARPENTER [address] [place], [place] [address] [facility] Internal Medicine 09/09/24 Weight Reducing Technician Relationship Specialty Start Date End Date Emilee Condon MD [address] [place], [place] [address] PCP - General 08/01/00 Kasie Limon APRN.COMMERCIAL CARPENTER [address] [place], [place] [address] [facility] Internal Medicine 03/30/24 09/08/24 Sarina Reeves RACE CAR DRIVER.WEIGHT TRAINING INSTRUCTOR [address] [place], [place] [address] [facility] Internal Medicine 07/14/24 Kasie Limon, KEENAN.COMMERCIAL CARPENTER [address] [place], [place] [address] [facility] Internal Medicine 09/09/24 Goals (unrecognized section and content) Goals may be documented in a n alternate sectionGoals may be documented in an alternate sectionGoals may be documented in an alternate sectionGoals may be documented in an alternate sectionGoals may be documented in an alternate sectionGoals may be documented in an alternate sectionGoals may be documented in an alternate section INFORMATION SOURCE (unrecogn ized section and content) DATE CREATED AUTHOR 11/26/2022 [facility] DATE CREATED AUTHOR AUTHOR'S ORGANIZ ATION 04/27/2023 [facility] DATE CREATED AUTHOR AUTHOR'S ORGANIZ ATION 07/03/2024 [facility] DATE CREATED AUTHOR AUTHOR'S ORGANESTEPHANIA ATION 11/01/2024 [facility] DATE CREATED AUTHOR AUTHOR'S ORGANIZ ATION 11/02/2024 [facility] FOR RECORDS PERTAINING TO PATIENTS WHO ARE OR HAVE BEEN ENROLLED IN A CHEMICAL DEPENDENCY/SUBSTANCEABUSE PROGRAM, SOME INFORMATION MAY BE OMITTED. This clinical summary was aggregated from multiple sources. Caution should be exercised in using it in the provision of clinical care. This summary normalizes information from multiple sources, and as a consequence, information in this document may materially change the coding, format and clinical context of patient data. In addition, data may be omitted in some cases. CLINICAL DECISIONS SHOULD BE BASED ON THE PRIMARY CLINICAL RECORDS. [employer] provides no warranty or guarantee of the accuracy or completeness of information in this document.
== END | disposition home or self-care (01) ==
LOC: LAB 15:25
PROVIDERS: PCP Internal Medicine; Referring Provider Nurse Practitioner Family; Visit Provider Nurse Practitioner Family
DX: I25.10 Atherosclerotic heart disease of native coronary artery without angina pectoris (principal); I49.3 Ventricular premature depolarization; I10 Essential (primary) hypertension
CPT/HCPCS: 36415; 80053; 83735; 85025

== ENCOUNTER → 2025-01-19 | Outpatient (CLI) | payer MEDICARE, OTHER, SELFPAY ==
--- OUTSIDE RECORDS SUMMARY | 2025-01-04 13:35 | XMS RPT_ITS ---
Author Name Auto Generated Organization OHIP Care Team Providers Care Cad Programmer Name Role Phone ARLEY DONNIE Referring Unavailable TALAMPAS, EMILEE D Primary Care Unavailable TALAMPAS, EMILEE D Referring Unavailable TALAMPAS, EMILEE D Primary Care Unavailable TALAMPAS, EMILEE D Primary Care Unavailable JESUS PERALTA Attending Unavailable TALAMPAS, EMILEE D Primary Care Unavailable BECKI CEBALLOS Attending Unavailable TALAMPAS, EMILEE D Primary Care Unavailable TALAMPAS, EMILEE D Referring Unavailable TALAMPAS, EMILEE D Primary Care Unavailable PRINCE WEST Attending Unavailable TALAMPAS, EMILEE D Primary Care Unavailable ANNA PARKS Attending Unavailable TALAMPAS, EMILEE D Primary Care Unavailable KUSH LO Referring Unavailable TALAMPAS, EMILEE D Primary Care Unavailable JOVANY BAHENA Admitting Unavailable JOVANY BAHENA Attending Unavailable TALAMPAS, EMILEE D Primary Care Unavailable SANTANA WARD Attending Unavailable JOVANY BAHENA Referring Unavailable TALAMPAS, EMILEE D Primary Care Unavailable JOVANY BAHENA Referring Unavailable TALAMPAS, EMILEE D Primary Care Unavailable JOVANY BAHENA Referring Unavailable TALAMPAS, EMILEE D Primary Care Unavailable SANTANA WARD Attending Unavailable JOVANY BAHENA Referring Unavailable TALAMPAS, EMILEE D Primary Care Unavailable TALAMPAS, EMILEE D Referring Unavailable TALAMPAS, EMILEE D Primary Care Unavailable VIBHA MARIN Attending Unavailable BECKI CEBALLOS Attending Unavailable TALAMPAS, EMILEE D Primary Care Unavailable HONEY ALFREDO Referring Unavailable TALAMPAS, EMILEE D Primary Care Unavailable HONEY ALFREDO Referring Unavailable TALAMPAS, EMILEE D Primary Care Unavailable TALAMPAS, EMILEE D Referring Unavailable TALAMPAS, EMILEE D Primary Care Unavailable FAYE NORTON Referring Unavailable TALAMPAS, EMILEE D Primary Care Unavailable FAYE NORTON Attending Unavailable TALAMPAS, EMILEE D Primary Care Unavailable BECKI CEBALLOS Attending Unavailable TALAMPAS, EMILEE D Primary Care Unavailable HONEY ALFREDO Attending Unavailable TALAMPAS, EMILEE D Primary Care Unavailable TALAMPAS, EMILEE D Attending Unavailable TALAMPAS, EMILEE D Primary Care Unavailable LIMON, KASIE Referring Unavailable TALAMPAS, EMILEE D Primary Care Unavailable TALAMPAS, EMILEE D Referring Unavailable TALAMPAS, EMILEE D Primary Care Unavailable TALAMPAS, EMILEE D Attending Unavailable TALAMPAS, EMILEE D Primary Care Unavailable KIT BOATENG JR Attending Unavailable TALAMPAS, EMILEE D Primary Care Unavailable SANTANA WARD Attending Unavailable JOVANY BAHENA Referring Unavailable TALAMPAS, EMILEE D Primary Care Unavailable PRINCE WEST Referring Unavailable TALAMPAS, EMILEE D Primary Care Unavailable PRINCE WEST Referring Unavailable TALAMPAS, EMILEE D Primary Care Unavailable LIMON, KASIE Referring Unavailable TALAMPAS, EMILEE D Primary Care Unavailable LIMON, KASIE Attending Unavailable TALAMPAS, EMILEE D Primary Care Unavailable TALAMPAS, EMILEE D Primary Care Unavailable HASAN, YOUNG Referring Unavailable TALAMPAS, EMILEE D Primary Care Unavailable LIMON, KASIE Attending Unavailable HASAN, YOUNG Referring Unavailable TALAMPAS, EMILEE D Primary Care Unavailable TALAMPAS, EMILEE D Referring Unavailable TALAMPAS, EMILEE D Primary Care Unavailable HONEY ALFREDO Referring Unavailable TALAMPAS, EMILEE D Primary Care Unavailable DONNIE HERNANDEZ Attending Unavailable TALAMPAS, EMILEE D Primary Care Unavailable TALAMPAS, EMILEE D Attending Unavailable TALAMPAS, EMILEE D Primary Care Unavailable HONEY ALFREDO Referring Unavailable TALAMPAS, EMILEE D Primary Care Unavailable TALAMPAS, EMILEE D Referring Unavailable TALAMPAS, EMILEE D Primary Care Unavailable TALAMPAS, EMILEE D Referring Unavailable TALAMPAS, EMILEE D Primary Care Unavailable JOAN NAVAS Attending Unavaila ble TALAMPAS, EMILEE D Primary Care Unavailable PRINCE WEST Attending Unavailable TALAMPAS, EMILEE D Primary Care Unavailable TALAMPAS, EMILEE Primary Care Unavailable KUSH LO Attending Unavailable EMILEE CONDON Primary Care Unavailable PROBLEMS DATE TYPE CONDITION / CODE ATTENDING STATUS [facility] 12/31/2024 Active Medicare annual wellness visit, subsequent / Z00.00(ICD-10) JOSE LIMONI Active [facility] 12/31/2024 Active Encounter for sc reening examination for other mental health and behavioral disorders / Z13.39(ICD-10) JAMAL KASIE Active [facility] 12/31/2024 Active Encounter for immunization / Z23(ICD-10) KASIE LIMON Active [facility] 12/18/2024 Active Chronic parotiti s / K11.23(ICD-10) NA Active [facility] 12/08/2024 Active Skin exam, kacey huston for cancer / Z12.83(ICD-10) ANNA PARKS Active [facility] 12/08/2024 Active 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, soft tissue, 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) ANNA PARKS Active [facility] 12/08/2024 Active Allergic contact dermatitis, unspecified trigger / L23.9(ICD-10) ANNA PARKS Active [facility] 12/08/2024 Active EIC (epidermal i nclusion cyst) / L72.0(ICD-10) ANNA PARKS Active [facility] 12/08/2024 Active Multiple benign nevi / D22.9(ICD-10) ANNA PARKS Active [facility] 12/08/2024 Active Seborrheic kerat osis / L82.1(ICD-10) ANNA PARKS Active [facility] 12/08/2024 Active Lentigines / L81.4(ICD-10) ANNA PARKS Active [facility] 12/08/2024 Active 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) ANNA PARKS Active [facility] 07/08/2015 Active Fibromyalgia / M79.7(ICD-10) PRINCE WEST Active [facility] 12/07/2024 Active Seropositive rhe umatoid arthritis (HCC) / M05.9(ICD-10) PRINCE WEST Active [facility] 12/07/2024 Active Osteoarthritis o f multiple joints, unspecified osteoarthritis type / M15.9(ICD-10) PRINCE WEST Active [facility] 12/07/2024 Active Osteoporosis, po st menopausal / M81.0(ICD-10) PRINCE WEST Active [facility] 12/07/2024 Active Encounter for lo ng-term (current) use of medications / Z79.899(ICD-10) PRINCE WEST Active [facility] 11/26/2024 Active Lower respirator y infection / J22(ICD-10) JESUS PERALTA Active [facility] 11/24/2024 Active Encounter for sc reening mammogram for breast cancer / Z12.31(ICD-10) NA Active [facility] 07/04/2017 Active Acquired hypothy roidism / E03.9(ICD-10) NA Active [facility] 11/12/2024 Active Vitamin D defici ency / E55.9(ICD-10) NA Active [facility] 11/12/2024 Active IFG (impaired fa sting glucose) / R73.01(ICD-10) NA Active [facility] 09/28/2024 Active Obesity, Class I II, BMI 40-49.9 (morbid obesity) (HCC) / E66.813(ICD-10) BECKI CEBALLOS Active [facility] 09/25/2024 Active Burning with uri nation / R30.0(ICD-10) VIBHA MARIN Active [facility] 09/25/2024 Active Vaginal discomfo rt / N94.9(ICD-10) VIBHA MARIN Active [facility] 08/25/2024 Active Acute respirator y infection / J22(ICD-10) EMILEE CONDON Active [facility] 08/25/2024 Active Abnormal CXR / R93.89(ICD-10) EMILEE CONDON Active [facility] 08/21/2024 Active Acute cough / R05.1(ICD-10) NA Active [facility] 08/21/2024 Active Abnormal chest x -ray / R93.89(ICD-10) FAYE NORTON Active [facility] 08/21/2024 Active URI, acute / J06.9(ICD-10) FAYE NORTON Active [facility] 08/14/2024 Active Dysuria / R30.0(ICD-10) NA Activ e [facility] 08/14/2024 Active Urinary frequenc y / R35.0(ICD-10) NA Active [facility] 08/14/2024 Active Encounter for gynecological examination with abnormal finding / Z01.411(ICD-10) DONNIE HERNANDEZ Active [facility] 08/14/2024 Active Screening for ce rvical cancer / Z12.4(ICD-10) DONNIE HERNANDEZ Active [facility] 08/14/2024 Active Vulvar irritatio n / N90.89(ICD-10) DONNIE HERNANDEZ Active [facility] 07/10/2024 Active Primary hyperten nate / I10(ICD-10) NA Active [facility] 07/23/2024 Active Episodic lighthe adedness / R42(ICD-10) NA Active [facility] 07/23/2024 Active Peripheral vascu lar disease / I73.9(ICD-10) NA Active [facility] 07/20/2024 Active Obesity, Class I II, BMI 40-49.9 (morbid obesity) (HCC) / E66.01(ICD-10) BECKI CEBALLOS Active [facility] 07/20/2024 Active Dietary counseli ng / Z71.3(ICD-10) BECKI CEBALLOS Active [facility] 05/29/2021 Active RLS (restless le gs syndrome) / G25.81(ICD-10) KIT BOATENG JR Active [facility] 06/26/2024 Active MERLIN on CPAP / G47.33(ICD-10) KIT BOATENG JR Active [facility] 06/26/2024 Active Class 3 severe o besity with body mass index (BMI) of 40.0 to 44.9 in adult, unspecified obesity type, unspecified whether serious comorbidity present (HCC) / E66.813(ICD-10) MARYCHUY COLEMAN KIT Génesis Active [facility] 06/26/2024 Active Class 3 severe o besity with body mass index (BMI) of 40.0 to 44.9 in adult, unspecified obesity type, unspecified whether serious comorbidity present (HCC) / E66.01(ICD-10) MARYCHUY COLEMAN KIT Génesis Active [facility] 06/26/2024 Active Class 3 severe o besity with body mass index (BMI) of 40.0 to 44.9 in adult, unspecified obesity type, unspecified whether serious comorbidity present (HCC) / Z68.41(ICD-10) MARYCHUY COLEMAN KIT Génesis Active [facility] 06/26/2024 Active Chronic insomnia / F51.04(ICD-10) MARYCHUY COLEMAN KIT Génesis [facility] 06/26/2024 Active Malaise and fati carolina / R53.81(ICD-10) MARYCHUY COLEMAN KIT Génesis [facility] 06/26/2024 Active Malaise and fati carolina / R53.83(ICD-10) MARYCHUY COLEMAN KIT Génesis [facility] 04/17/2021 Active Dyslipidemia / E78.5(ICD-10) [facility] 06/10/2024 Active Encounter for lo ng-term current use of medication / Z79.899(ICD-10) [facility] 06/10/2024 Active Polyarthritis / M13.0(ICD-10) [facility] 05/04/2024 Active Acute UTI / N39.0(ICD-10) [facility] 03/27/2024 Active Urgency of urina tion / R39.15(ICD-10) [facility] 03/27/2024 Active Urinary tract in fection without hematuria, site unspecified / N39.0(ICD-10) [facility] 03/20/2024 Active Inflammatory art hritis / M19.90(ICD-10) [facility] 03/20/2024 Active Stiffness of sosa d joint, unspecified laterality / M25.649(ICD-10) NA Active [facility] 02/07/2023 Active 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 / M54.42(ICD-10) SANTANA WARD Active [facility] 02/07/2023 Active 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 / G89.29(ICD-10) GOLLIU SANTANA Active [facility] 02/25/2024 Active Lumbar neuritis / M54.16(ICD-10) GOLIAS PARIS Active [facility] 02/25/2024 Active Lumbar radiculop athy / M54.16(ICD-10) GOLLIU PARIS Active [facility] 02/21/2024 Active Multiple thyroid nodules / E04.2(ICD-10) NA Active [facility] 02/17/2024 Active Lumbosacral neur itis / M54.17(ICD-10) JOVANY BAHENA Active [facility] PROCEDURES No Procedure Records Found RESULTS CNCNPATED Observed: 01/04/2025 1:45 PM Status: COMPLETED Source: [facility] Education (NUTRWS) PRISCILLA RAMOS ([id number]) 1955 F Date Time Provider Department 01/04/25 1:45 PM BECKI CEBALLOS Reason for Visit: Reassessment [674] Patient Education [91] Primary Visit Diagnosis:Obesity, Class III, BMI 40-49.9 (morbid obesity) ([facility]) [E66.813] Other Visit Diagnosis:Dietary counseling [Z71.3] During your visit today, we recorded the following information about you: Weight Height 124.7 kg 1.64 m Allergies As of Date: 01/04/2025 (No Known Allergies) Date Reviewed: 01/04/2025 Reviewed by: Becki Ceballos RD - Fully Assessed Prescriptions as of 01/04/2025 - Yubrw-0-DNO-EPA-Fish Oil (FISH OIL) 1,000 (120-180) mg cap Take 2 g by mouth two times a day. - triamcinolone acetonide (KENALOG) 0.1 % cream Apply to affected areas twice daily as needed for up to 3 weeks per month. Avoid face, armpits, and groin. - TIADYLT ER 120 mg 24 hr capsule Take 1 capsule by mouth once daily. - sulfaSALAzine (AZULFIDINE) 500 mg tablet Take 500mg every morning AND 1000mg every evening - traZODone (DESYREL) 50 mg tablet Take 0.5 tablets by mouth daily at bedtime. - benzonatate (TESSALON PERLE) 100 mg capsule Take 1 capsule by mouth three times a day as needed. - gabapentin (NEURONTIN) 400 mg capsule Take 2 capsule 60-90 minutes before bedtime. - acetaminophen (TYLENOL ARTHRITIS PAIN) 650 mg CR tablet Take 1,300 mg by mouth once daily. - levothyroxine (SYNTHROID) 25 mcg tablet Take 1 tablet by mouth once daily. - rosuvastatin (CRESTOR) 5 mg tablet Take 1 tablet by mouth every Saturday, Saturday, and Saturday. - hydroCHLOROthiazide 25 mg tablet Take 1 tablet by mouth every afternoon. - colestipol (COLESTID) 1 gram tablet Take 1-2 tablets by mouth once daily. As directed - BIPAP - losartan (COZAAR) 100 mg tablet Take 100 mg by mouth once daily. - aspirin 81 mg chewable tablet Take 81 mg by mouth once daily. - ubidecarenone Q-10 (COENZYME Q-10) 10 mg cap Take 100 mg by mouth two times a day. - hyperimmune colostrum, bovine 200 mg tab Take 2 tablets by mouth twice daily. - Ca/D3/mag ox/zinc/coping machine assembler/nicholas/bor (CALCIUM 600-D3 PLUS, MAG-ZINC, ORAL) - turmeric/turmeric ext/pepr ext (TURMERIC-TURMERIC EXT-PEPPER) 900-100-5 mg cap - CPAP Bipap 17/13 cm H2O, Heat Humidity, suitable mask, [employer] supplies, opt [place], G47.33. - cholecalciferol (VITAMIN D3) 2,000 unit tablet Take 2,000 Units by mouth once daily. - FLUoxetine HCl (PROZAC) 40 mg capsule Take 1 capsule by mouth once daily. (Dr. Garcia) - CYANOCOBALAMIN, VITAMIN B-12, (VITAMIN B-12 ORAL) Take by mouth. - buPROPion XL (WELLBUTRIN XL) 150 mg 24 hr tablet Take one(1) tablet daily. - Biotin (NAIL-EX) 2,500 mcg ORAL Tab Take 1,000 mcg by mouth once daily. - DAILY VITAMIN TAB Take one(1) tablet daily. Encounter Status:Closed by BECKI CEBALLOS on 01/04/25 PROGRESS Observed: 01/04/2025 1:35 PM Status: COMPLETED Source: [facility] ID: [id number] Author: BECKI CEBALLOS RD Service: ? Author Type: Registered Dietitian Type: Progress Notes Filed: 01/04/2025 14:22 Note Text: 1:35 PM Nutritional Therapy Re-Assessment Nutrition Diagnosis: Overweight/obesity, related to, excess energy intake and physical inactivity, as evidenced by BMI above normative standard for age and gender RECOMMENDED MALNUTRITION DIAGNOSIS: NO MALNUTRITION IDENTIFIED NUTRITION CARE PLAN: Nutrition Intervention 01/04/2025: modify type and amount of food or beverage Add in seated exercise as available on Youtube, start with 3 days (Saturday and Saturday and one Week day. Preferably at least 30 min. Try tracking at least 3 days per week aiming for 1500 calories try Cronometer. Snacks OK if hungry - apply mindful eating All meals and snacks at the dinner table; minimize distractions, no TV while eating. Make meals last at least 20 min, chew each bite of food 20 x per bite.Portion out all foods, never eat out of container. Become more mindful of meal: Enjoy flavors, textures etc. Use hunger/fullness scale. Limit wine to one glass when having Nutrition Monitoring AND Evaluation: half to one pound weight loss per week Need for Follow up: 4-6 weeks PROGRESS: Interval History: following as relates to class 3 obesity Body mass index is 46.37 kg/m?.Byrnes snot been able to focus on weight loss, with cardiac issues that now getting under control. Limited change of intake from last visit but does feel is at a point when to make changes. Eating usually 3 regular meals and an afternoon snack. Suspect excess energy from afternoon snack and oc higher calorie dinner choices along with limited activity and lacking exercise. Weight today increase of 3 lbs since last visit, also notes edema in ankles, some weight change may be related to this. No regular exercise due to bone on bone knee and foot issues. Nutrition Intervention 09/28/24 Start regular exercise, aim for 30 min most days (exercise bike) Start tracking with tameka Cronometer aiming for 1500 calories, OK to track 3-4 x per weei If having cheese and crackers, balance out the meal with fruit, vegetables Continue three meals, limited snacking Increase vegetables Actions to implement interventions: Tracking in head Diet History: Breakfast - GF granola with blueberries, 2 coffee with skim milk and sweetener and 16 oz water Snack - no Lunch - not yet today (late breakfast and appts); may have sandwich or skip Snack - cheese n crackers; 1-2 glasses wine Dinner - healthier frozen meals; steak salad; pizza; Snack - no Beverages - water, wine, coffee Alcohol - wine Vitamins/Supplements - see medlist Activity: Activities of Daily 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 Resting Metabolic Rate: 1765 Malnutrition Screening Significant unintentional weight loss? No Eating less than 75% of usual intake for more than 2 weeks? No Potential Signs of Inflammation: no identifiable sources Nutritional status: Food Insecurity: No Food Insecurity (12/31/2024) Hunger Vital Sign Worried About Running Out [...] Kristin YODER Billing Type: Re-assess 2 units 2:03 PM Total Time (mins): 28 SIGNATURE: Becki Ceballos RD PATIENT NAME: Priscilla Ramos DATE: January 04, 2025 TIME: 1:37 PM PROGRESS Observed: 12/31/2024 11:32 AM Status: COMPLETED Source: [facility] HNO ID: [id number] Author: KASIE LIMON APRN.IT RISK ADVISOR Service: ? Author Type: Nurse Specialist Type: Progress Notes Filed: 12/31/2024 13:11 Note Text: Priscilla Ramos is a 69 year old female here for a Medicare wellness visit. Medicare Health Risk Assessment General Health Fair Exercise: Minutes/Day 0 min Exercise: Days/Week 0 days Alcohol: Daily Use 4 or more times a week Alcohol: Drinks/Day 1 or 2 Alcohol: 6 or more drinks Never Feel off balance Yes Concerns: Teeth/Dentures No Concerns: Sexual function No Troubled by feelings Stressed Frequency: Eating healthy diet More than half the days ADLs requiring help Housework Safety precautions in home/vehicle Yes Smoke, vape, chews tobacco No Difficulty hearing No Difficulty seeing No Current Providers Specialists: I have reviewed specialist-related care of the patient in the medical record. [facility] - PVCs, treating with calcium channel rupesh with improvement [facility]. Elkins Medical/Family history review Reviewed and updated problem list, medical/surgical/family/social history, medications, and allergies. Opioid use review Opioid Medications (last 90 days) No data to display Anxiety/Depression screening ELIZABETH-7 Score: 2 (Minimal Anxiety) Recommendation: continuing current treatment plan Cognitive screening Mini Cog Score: 5 Cognitive screening reviewed and No further action needed (score 3-5). Functional Observation Was the patient's Timed Up AND Go test unsteady or >= 12 seconds? No Advance Care Planning Surrogate decision maker and/or advance care plan documented Sons Measurements BP 118/78 Pulse 81 Resp 16 Ht 164 cm (5' 4.57) Wt 124.7 kg (274 lb 14.6 oz) SpO2 96% BMI 46.36 kg/m? Vision Screening: Follows with optometry/ophthalmology Latest Ref Rng 09/03/2024 10/01/2024 10/29/2024 11/12/2024 WBC 3.70 - 11.00 k/uL 6.93 5.99 6.03 RBC 3.90 - 5.20 m/uL 4.56 4.35 4.59 Hemoglobin 11.5 - 15.5 g/dL 14.0 13.6 14.4 Hematocrit 36.0 - 46.0 % 41.6 40.4 43.0 MCV 80.0 - 100.0 fL 91.2 92.9 93.7 MCH 26.0 - 34.0 pg 30.7 31.3 31.4 MCHC 30.5 - 36.0 g/dL 33.7 33.7 33.5 RDW-CV 11.5 - 15.0 % 12.9 14.0 14.3 Platelet Count 150 - 400 k/uL 346 331 292 MPV 9.0 - 12.7 fL 8.6 (L) 9.4 9.1 Absolute nRBC <0.01 k/uL <0.01 <0.01 <0.01 Creatinine 0.58 - 0.96 mg/dL 0.70 0.58 0.61 eGFR >=60 mL/min/1.73m? 93 97 96 Hemoglobin A1C 4.3 - 5.6 % 5.6 Estimated Average Glucose mg/dL 114 TSH 0.270 - 4.200 mIU/L 1.010 1.430 Free T3 2.3 - 4.1 pg/mL 2.6 2.8 Free T4 0.9 - 1.7 ng/dL 1.4 1.4 ALT 7 - 38 U/L 22 18 21 AST 13 - 35 U/L 24 19 21 Vitamin D 25 Hydroxy 31.0 - 80.0 ng/mL 36.0 Assessment/Plan Medicare annual wellness visit, subsequent (Z00.00) - Counseled on healthy diet and regular exercise - Fall avoidance information provided - Personalized prevention plan provided Kasie Limon APRN.IT RISK ADVISOR CNOV Observed: 12/31/2024 11:20 AM Status: COMPLETED Source: [facility] Office Visit (INTMWS) PRISCILLA RAMOS ([id number]) 1955 F Date Time Provider Department 12/31/24 11:20 AM KASIE LIMON INTJajaWS During your visit today, we recorded the following information about you: Pulse Respiration Blood pressure Weight 81/minute 16/minute 118/78 124.7 kg Height 1.64 m Kasie Limon APRN.IT RISK ADVISOR 12/31/2024 1:11 PM Signed Priscilla Ramos is a 69 year old female here for a Medicare wellness visit. Medicare Health Risk Assessment General Health Fair Exercise: Minutes/Day 0 min Exercise: Days/Week 0 days Alcohol: Daily Use 4 or more times a week Alcohol: Drinks/Day 1 or 2 Alcohol: 6 or more drinks Never Feel off balance Yes Concerns: Teeth/Dentures No Concerns: Sexual function No Troubled by feelings Stressed Frequency: Eating healthy diet More than half the days ADLs requiring help Housework Safety precautions in home/vehicle Yes Smoke, vape, chews tobacco No Difficulty hearing No Difficulty seeing No Current Providers Specialists: I have reviewed specialist-related care of the patient in the medical record. [facility] - PVCs, treating with calcium channel rupesh with improvement [facility]. Dr. Elkins Medical/Family history review Reviewed and updated problem list, medical/surgical/family/social history, medications, and allergies. Opioid use review Opioid Medications (last 90 days) No data to display Anxiety/Depression screening ELIZABETH-7 Score: 2 (Minimal Anxiety) Recommendation: continuing current treatment plan Cognitive screening Mini Cog Score: 5 Cognitive screening reviewed and No further action needed (score 3-5). Functional Observation Was the patient's Timed Up AND Go test unsteady or >= 12 seconds? No Advance Care Planning Surrogate decision maker and/or advance care plan documented Sons Measurements BP 118/78 Pulse 81 Resp 16 Ht 164 cm (5' 4.57) Wt 124.7 kg (274 lb 14.6 oz) SpO2 96% BMI 46.36 kg/m? Vision Screening: Follows with optometry/ophthalmology Latest Ref Rng 09/03/2024 10/01/2024 10/29/2024 11/12/2024 WBC 3.70 - 11.00 k/uL 6.93 5.99 6.03 RBC 3.90 - 5.20 m/uL 4.56 4.35 4.59 Hemoglobin 11.5 - 15.5 g/dL 14.0 13.6 14.4 Hematocrit 36.0 - 46.0 % 41.6 40.4 43.0 MCV 80.0 - 100.0 fL 91.2 92.9 93.7 MCH 26.0 - 34.0 pg 30.7 31.3 31.4 MCHC 30.5 - 36.0 g/dL 33.7 33.7 33.5 RDW-CV 11.5 - 15.0 % 12.9 14.0 14.3 Platelet Count 150 - 400 k/uL 346 331 292 MPV 9.0 - 12.7 fL 8.6 (L) 9.4 9.1 Absolute nRBC <0.01 k/uL <0.01 <0.01 <0.01 Creatinine 0.58 - 0.96 mg/dL 0.70 0.58 0.61 eGFR >=60 mL/min/1.73m? 93 97 96 Hemoglobin A1C 4.3 - 5.6 % 5.6 Estimated Average Glucose mg/dL 114 TSH 0.270 - 4.200 mIU/L 1.010 1.430 Free T3 2.3 - 4.1 pg/mL 2.6 2.8 Free T4 0.9 - 1.7 ng/dL 1.4 1.4 ALT 7 - 38 U/L 22 18 21 AST 13 - 35 U/L 24 19 21 Vitamin D 25 Hydroxy 31.0 - 80.0 ng/mL 36.0 Assessment/Plan Medicare annual wellness visit, subsequent (Z00.00) - Counseled on healthy diet and regular exercise - Fall avoidance information provided - Personalized prevention plan provided TRUDY Mensah Terri, APRN.CNS 12/31/2024 11:33 AM Signed Screening schedule The following prevention plan is recommended: DTaP,Tdap,Td Vaccine(2 - Td or Tdap) due on 06/27/2021 Medicare Annual Wellness Visit due on 12/15/2024 Anxiety Screening due on 12/15/2024 Influenza Vaccine(1) due on 12/21/2024 WHAT YOU CAN DO TO PREVENT FALLS [...] review all the medicines you take, even urzj-tlk-rwadzcb medicines. As you get older, the way [...] apply if you have certain medical conditions. Allergies As of Date: 12/31/2024 (No Known Allergies) Date Reviewed: 12/31/2024 Reviewed by: Rosina Abdul LPN - Fully Assessed Reason for Visit: Medicare Wellness Exam [4060] Primary Visit Diagnosis:Medicare annual wellness visit, subsequent [Z00.00] Other Visit Diagnoses:Encounter for screening examination for other mental health and behavioral disorders [Z13.39] Encounter for immunization [Z23] Order(s):ANXIETY SCREENING [8339842] Order #: [id number]: 1 INFLUENZA VACCINE, PRSV FREE, AGE 65+ YR, HIGH DOSE, TRIVALENT (FLUZONE HIGH-DOSE) [87504REY] Order #: [id number] Prescriptions as of 12/31/2024 - Mplaf-0-GLA-EPA-Fish Oil (FISH OIL) 1,000 (120-180) mg cap Take 2 g by mouth two times a day. - triamcinolone acetonide (KENALOG) 0.1 % cream Apply to affected areas twice daily as needed for up to 3 weeks per month. Avoid face, armpits, and groin. - TIADYLT ER 120 mg 24 hr capsule Take 1 capsule by mouth once daily. - sulfaSALAzine (AZULFIDINE) 500 mg tablet Take 500mg every morning AND 1000mg every evening - traZODone (DESYREL) 50 mg tablet Take 0.5 tablets by mouth daily at bedtime. - benzonatate (TESSALON PERLE) 100 mg capsule Take 1 capsule by mouth three times a day as needed. - gabapentin (NEURONTIN) 400 mg capsule Take 2 capsule 60-90 minutes before bedtime. - acetaminophen (TYLENOL ARTHRITIS PAIN) 650 mg CR tablet Take 1,300 mg by mouth once daily. - levothyroxine (SYNTHROID) 25 mcg tablet Take 1 tablet by mouth once daily. - rosuvastatin (CRESTOR) 5 mg tablet Take 1 tablet by mouth every Saturday, Saturday, and Saturday. - hydroCHLOROthiazide 25 mg tablet Take 1 tablet by mouth every afternoon. - colestipol (COLESTID) 1 gram tablet Take 1-2 tablets by mouth once daily. As directed - BIPAP - losartan (COZAAR) 100 mg tablet Take 100 mg by mouth once daily. - aspirin 81 mg chewable tablet Take 81 mg by mouth once daily. - ubidecarenone Q-10 (COENZYME Q-10) 10 mg cap Take 100 mg by mouth two times a day. - hyperimmune colostrum, bovine 200 mg tab Take 2 tablets by mouth twice daily. - Ca/D3/mag ox/zinc/coping machine assembler/nicholas/bor (CALCIUM 600-D3 PLUS, MAG-ZINC, ORAL) - turmeric/turmeric ext/pepr ext (TURMERIC-TURMERIC EXT-PEPPER) 900-100-5 mg cap - CPAP Bipap 17/13 cm H2O, Heat Humidity, suitable mask, [employer] supplies, opt Chinstrap, G47.33. - cholecalciferol (VITAMIN D3) 2,000 unit tablet Take 2,000 Units by mouth once daily. - FLUoxetine HCl (PROZAC) 40 mg capsule Take 1 capsule by mouth once daily. (Dr. Garcia) - CYANOCOBALAMIN, VITAMIN B-12, (VITAMIN B-12 ORAL) Take by mouth. - buPROPion XL (WELLBUTRIN XL) 150 mg 24 hr tablet Take one(1) tablet daily. - Biotin (NAIL-EX) 2,500 mcg ORAL Tab Take 1,000 mcg by mouth once daily. - DAILY VITAMIN TAB Take one(1) tablet daily. Problem List As Of Date 12/31/2024 Noted Resolved Fibromyalgia [M79.7] DYSTHYMIC DISORDER [F34.1] Palpitations [R00.2] 11/23/2006 01/29/2014 Dyslipidemia [E78.5] 11/25/2006 Osteopenia [M85.80] 12/14/2010 Arthrosis [M19.90] 12/14/2010 Dysmetabolic syndrome [E88.810] 10/07/2012 Obstructive sleep apnea treated with bilevel po*09/09/2013 Insomnia [G47.00] 09/09/2013 Elevated antinuclear antibody (KELTON) [...] 07/25/2022 CAD (coronary artery disease) [I25.10] 07/25/2022 Depression, recurrent (HCC) [F33.9] 12/16/2022 Intermittent claudication (HCC) [I73.9] 12/16/2022 Acute back pain with sciatica, left [M54.42] 02/07/2023 Lumbar radiculopathy [M54.16] 02/25/2024 Other instructions from your clinician: Screening schedule The following prevention plan is recommended: DTaP,Tdap,Td Vaccine(2 - Td or Tdap) due on 06/27/2021 Medicare Annual Wellness Visit due on 12/15/2024 Anxiety Screening due on 12/15/2024 Influenza Vaccine(1) due on 12/21/2024 WHAT YOU CAN DO TO PREVENT FALLS [...] review all the medicines you take, even cerx-not-ocdyiaz medicines. As you get older, the way [...] apply if you have certain medical conditions. Level of Service: PPPS, SUBSEQ VISIT [G0439] Disposition: Return in 1 year (on 12/31/2025) for Medicare Wellness Visit. Follow-up and Disposition History for Encounter Date Provider Department Center 12/31/2024 [id number], TER[facility] Encounter Status:Closed by KASIE LIMON on 12/31/24 PROGRESS Observed: 12/28/2024 4:06 PM Status: COMPLETED Source: [facility] HNO ID: [id number] Author: JOAN NAVAS MD Service: ? Author Type: Physician Type: Progress Notes Filed: 01/18/2025 07:25 Note Text: [facility] Initial Clinic Visit Note NAME: Priscilla Ramos PCP: Emilee Condon MD Chief Complaint: thyroid nodule HPI: Priscilla Ramos is a 69 year old female presenting on self referral for evaluation of thyroid nodule incidentally found on CT scan of neck. History in brief, she was noted to have thyroid nodules was incidental during a CT scan in 2021. 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 She is considering alf after the current semester History of smoking: no Family history of thyroid cancer: no Family history of thyroid nodules: no PAST MEDICAL HISTORY Diagnosis Date Abnormal mammogram, [...] AVANI ovaries remain ALLERGIES No Known Allergies SOCIAL HISTORY[1] FAMILY HISTORY Problem Relation Age of Onset [...] Family History Clotting Disorder No Family History MEDICATIONS: Current Outpatient Medications on File Prior to Visit Medication Sig Ggocz-0-ZKB-EPA-Fish Oil (FISH OIL) 1,000 (120-180) mg cap Take 2 g by mouth two times a day. triamcinolone acetonide (KENALOG) 0.1 % cream Apply to affected areas twice daily as needed for up to 3 weeks per month. Avoid face, armpits, and groin. (Patient taking differently: Apply 1 application to affected area as needed. Apply to affected areas twice daily as needed for up to 3 weeks per month. Avoid face, armpits, and groin.) TIADYLT ER 120 mg 24 hr capsule Take 1 capsule by mouth once daily. sulfaSALAzine (AZULFIDINE) 500 mg tablet Take 500mg every morning AND 1000mg every evening (Patient taking differently: Take 1-2 tablets by mouth two times a day. Take 500mg every morning AND 1000mg every evening) traZODone (DESYREL) 50 mg tablet Take 0.5 tablets by mouth daily at bedtime. benzonatate (TESSALON PERLE) 100 mg capsule Take 1 capsule by mouth three times a day as needed. gabapentin (NEURONTIN) 400 mg capsule Take 2 capsule 60-90 minutes before bedtime. (Patient taking differently: Take 2 capsules by mouth daily at bedtime. Take 2 capsule 60-90 minutes before bedtime.) acetaminophen (TYLENOL ARTHRITIS PAIN) 650 mg CR [...] tablets by mouth once daily. As directed BIPAP losartan (COZAAR) 100 mg tablet Take 100 mg by mouth once daily. aspirin 81 mg chewable tablet Take 81 mg by mouth once daily. ubidecarenone Q-10 (COENZYME Q-10) 10 mg cap Take 100 mg by mouth two times a day. hyperimmune colostrum, bovine 200 mg tab Take 2 tablets by mouth twice daily. Ca/D3/mag ox/zinc/coping machine assembler/nicholas/bor (CALCIUM 600-D3 PLUS, MAG-ZINC, ORAL) (Patient taking differently: Take 1 tablet by mouth once daily.) turmeric/turmeric ext/pepr ext (TURMERIC-TURMERIC EXT-PEPPER) 900-100-5 mg cap (Patient taking differently: Take 1 capsule by mouth once daily.) cholecalciferol (VITAMIN D3) 2,000 unit tablet Take 2,000 Units by mouth once daily. FLUoxetine HCl (PROZAC) 40 mg capsule Take 1 capsule by mouth once daily. (Dr. Garcia) CYANOCOBALAMIN, VITAMIN B-12, (VITAMIN B-12 ORAL) Take by mouth. (Patient taking differently: Take 1 tablet by mouth once daily.) buPROPion XL (WELLBUTRIN XL) 150 mg 24 hr tablet Take one(1) tablet daily. (Patient taking differently: Take 150 mg by mouth once daily. DO NOT CRUSH. SWALLOW WHOLE) Biotin (NAIL-EX) 2,500 mcg ORAL Tab Take 1,000 mcg by mouth once daily. DAILY VITAMIN TAB Take one(1) tablet daily. (Patient taking differently: Take 1 tablet by mouth once daily.) CPAP Bipap 17/13 cm H2O, Heat Humidity, suitable mask, [employer] supplies, opt Chinstrap, G47.33. (Patient not taking: Reported on 12/28/2024) No current facility-administered medications on file prior to visit. REVIEW OF SYSTEMS: 10 point ROS was reviewed and negative unless indicated in the HPI PHYSICAL EXAMINATION: 12/28/24 1608 BP: 128/76 BP Site: Left Arm BP Position: Sitting BP Cuff Size: Large Adult Pulse: 70 SpO2: 96% Weight: 117 kg (258 lb) Height: 165.1 cm (5' 5) General: no acute distress, alert and orientated X 3 Eyes:EOMI, anicteric sclera Neck - supple, no significant adenopathy Thyroid: enlarged in size, asymmetry+, has discrete right palpable nodules Neuro: alert, oriented, normal speech, no focal findings noted CV: normal rate and regular rhythm, S1 and S2 normal. Chest: Lungs clear to auscultation. No wheezing, rhonchi, rales Abdominal: soft, non-tender. Bowel sounds normal. Musculoskeletal: no joint tenderness, deformity or swelling Extremities: no edema, no discoloration Skin: no rash or erythema LABS AND IMAGING TSH Date Value Ref Range Status 11/12/2024 1.430 0.270 - 4.200 mIU/L Final Free T4 Date Value Ref Range Status 11/12/2024 1.4 0.9 - 1.7 ng/dL Final Thyroid ultrasound 03/18/2023: COMPARISON: 03/08/2022. RESULT: Right Lobe: 3.8 x 1.7 x 2.1 [...] 2 points Echogenicity: Hypoechoic, 2 points Shape: Zpiig-gavf-jfvf, 0 points Margin: Smooth, 0 points Echogenic [...] 2 points Echogenicity: Hypoechoic, 2 points Shape: Rcpgl-wbtt-keoy, 0 points Margin: Smooth, 0 points Echogenic [...] 2 points Echogenicity: Hypoechoic, 2 points Shape: Jfqzo-iuqw-gwkw, 0 points Margin: Smooth, 0 points Echogenic [...] 2 points Echogenicity: Hypoechoic, 2 points Shape: Gdiek-rzka-dcor, 0 points Margin: Smooth, 0 points Echogenic foci (add points for all that apply): None, 0 points Internal vascularity: present Interval growth: No significant growth given differences in technique TI-RADS Category: TR4 ACR Recommendation: TI-RADS 4 nodule. Follow up imaging in 1, 2, 3 and 5 years is advised. FNAB : 04/25/23: FINAL DIAGNOSIS A - THYROID RIGHT FINE NEEDLE ASPIRATION - RIGHT MID Benign. Benign thyroid nodule Thyroid ultrasound : 02/21/2024: COMPARISON: Thyroid ultrasound 03/18/2023 RESULT: Right Lobe: 4.4 x 1.7 x 1.9 cm; heterogeneous echogenicity, expected vascular flow. Left Lobe: 4.5 x 1.8 x 1.6 cm; heterogeneous echogenicity, expected vascular flow. Isthmus: 0.3 cm The most suspicious thyroid nodule(s) (up to four) as below: NODULE 1: Location: Right upper pole Size: 0.9 x 0.6 x 0.6 cm Characteristics: Composition: Solid or almost completely solid, 2 points Echogenicity: Hypoechoic, 2 points Shape: Wdrzg-pttj-oyda, 0 points Margin: Smooth, 0 points Echogenic foci (add points for all that apply): None, 0 points Internal vascularity: absent Interval growth: No significant growth given differences in technique TI-RADS Category: TR4 ACR Recommendation: TI-RADS 4 nodule. No FNA or follow-up imaging is advised. NODULE 2: Location: Right mid Size: 2 x 1.4 x 0.9 cm Characteristics: Composition: Solid or almost completely solid, 2 points Echogenicity: Hypoechoic, 2 points Shape: Rudbp-gopi-szto, 0 points Margin: Smooth, 0 points Echogenic foci (add points for all that apply): Punctate echogenic foci, 3 points Internal vascularity: absent Interval growth: No significant growth given differences in technique TI-RADS Category: TR5 ACR Recommendation: TI-RADS 5 nodule. FNA is advised. NODULE 3: Location: Right mid to lower pole Size: 1.4 x 1 x 0.9 cm Characteristics: Composition: Solid or almost completely solid, 2 points Echogenicity: Hypoechoic, 2 points Shape: Jvbux-wpef-bnvz, 0 points Margin: Smooth, 0 points Echogenic foci (add points for all that apply): None, 0 points Internal vascularity: absent Interval growth: No significant growth given differences in technique TI-RADS Category: TR4 ACR Recommendation: TI-RADS 4 nodule. Follow up imaging in 1, 2, 3 and 5 years is advised. NODULE 4: Location: Left mid Size: 1 x 0.6 x 1 cm Characteristics: Composition: Solid or almost completely solid, 2 points Echogenicity: Hypoechoic, 2 points Shape: Iwemn-nffb-ytcp, 0 points Margin: Smooth, 0 points Echogenic foci (add points for all that apply): None, 0 points Internal vascularity: absent Interval growth: No significant growth given differences in technique TI-RADS Category: TR4 ACR Recommendation: TI-RADS 4 nodule. Follow up imaging in 1, 2, 3 and [address] soft tissue neck: 12/18/24: Thyroid gland: Heterogeneous thyroid gland with 1.8 cm RIGHT thyroid lobe nodule most recently characterized on thyroid ultrasound 02/21/2024. Lymph Nodes: No cervical lymphadenopathy by size criteria. ASSESSMENT AND PLAN: Priscilla Ramos is a 69 year old female presenting to endocrinology for evaluation of right thyroid nodule. 1. Right Thyroid nodule: - TSH normal in 10/2024 - I reviewed the images of thyroid ultrasound done last year with her, as well as compared them to thyroid ultrasound in 02/2023 - I discussed with the patient the following: The prevalence of thyroid nodules and risk of cancer The indication, benefits and risks of doing an FNA as well as the benefits and risks of the alternatives. Discussed hyperfunctioning nodules and management, possible surgery if >4 cm/ or if compressive symptoms The management based on results of the biopsy - I reviewed that there has not been a significant change in the dominant nodule from the biopsy and hence following up with thyroid ultrasound this year, advised imaging in 2 months from now, which would be one year from the last imaging. All questions welcomed and answered to satisfaction Patient understands and agrees with the plan discussed. Joan Navas MD [facility] Endocrinology and Metabolism [facility] Medical Decision Making: Problems: Low: Stable chronic illness Data: Unique test result(s) reviewed: 3+ Unique test(s) ordered: 1 Independent interpretation of test from other physician/QHCP Risk: Moderate: Moderate risk from testing/treatment Medical Decision Making Level: 4 - Moderate [1] Social History Tobacco Use Smoking status: Never Passive exposure: Never Smokeless tobacco: Never Vaping Use Vaping status: Never Used Substance Use Topics Alcohol use: Yes Alcohol/week: 18.0 standard drinks of alcohol Types: 18 Glasses of wine per week Comment: wine with supper Drug use: No CNOV Observed: 12/28/2024 4:00 PM Status: COMPLETED Source: [facility] [place] Office Visit (ENWSTR) PRISCILLA RAMOS ([id number]) 1955 F Date Time Provider Department 12/28/24 4:00 PM JOAN NAVAS ENWSTR During your visit today, we recorded the following information about you: Pulse Blood pressure Weight Height 70/minute 128/76 117 kg 1.651 m Joan Navas MD 01/18/2025 7:25 AM Signed [facility] Initial Clinic Visit Note NAME: Priscilla Ramos PCP: Emilee Condon MD Chief Complaint: thyroid nodule HPI: Priscilla Ramos is a 69 year old female presenting on self referral for evaluation of thyroid nodule incidentally found on CT scan of neck. History in brief, she was noted to have thyroid nodules was incidental during a CT scan in 2021. 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 triamcinolone acetonide (KENALOG) 0.1 % cream Apply to affected areas twice daily as needed for up to 3 weeks per month. Avoid face, armpits, and groin. (Patient taking differently: Apply 1 application to affected area as needed. Apply to affected areas twice daily as needed for up to 3 weeks per month. Avoid face, armpits, and groin.) TIADYLT ER 120 mg 24 hr capsule Take 1 capsule by mouth once daily. sulfaSALAzine (AZULFIDINE) 500 mg tablet Take 500mg every morning AND 1000mg every evening (Patient taking differently: Take 1-2 tablets by mouth two times a day. Take 500mg every morning AND 1000mg every evening) traZODone (DESYREL) 50 mg tablet Take 0.5 tablets by mouth daily at bedtime. benzonatate (TESSALON PERLE) 100 mg capsule Take 1 capsule by mouth three times a day as needed. gabapentin (NEURONTIN) 400 mg capsule Take 2 capsule 60-90 minutes before bedtime. (Patient taking differently: Take 2 capsules by mouth daily at bedtime. Take 2 capsule 60-90 minutes before bedtime.) acetaminophen (TYLENOL ARTHRITIS PAIN) 650 mg CR [...] tablets by mouth once daily. As directed BIPAP losartan (COZAAR) 100 mg tablet Take 100 mg by mouth once daily. aspirin 81 mg chewable tablet Take 81 mg by mouth once daily. ubidecarenone Q-10 (COENZYME Q-10) 10 mg cap Take 100 mg by mouth two times a day. hyperimmune colostrum, bovine 200 mg tab Take 2 tablets by mouth twice daily. Ca/D3/mag ox/zinc/coping machine assembler/nicholas/bor (CALCIUM 600-D3 PLUS, MAG-ZINC, ORAL) (Patient taking differently: Take 1 tablet by mouth once daily.) turmeric/turmeric ext/pepr ext (TURMERIC-TURMERIC EXT-PEPPER) 900-100-5 mg cap (Patient taking differently: Take 1 capsule by mouth once daily.) cholecalciferol (VITAMIN D3) 2,000 unit tablet Take 2,000 Units by mouth once daily. FLUoxetine HCl (PROZAC) 40 mg capsule Take 1 capsule by mouth once daily. (Dr. Garcia) CYANOCOBALAMIN, VITAMIN B-12, (VITAMIN B-12 ORAL) Take by mouth. (Patient taking differently: Take 1 tablet by mouth once daily.) buPROPion XL (WELLBUTRIN XL) 150 mg 24 hr tablet Take one(1) tablet daily. (Patient taking differently: Take 150 mg by mouth once daily. DO NOT CRUSH. SWALLOW WHOLE) Biotin (NAIL-EX) 2,500 mcg ORAL Tab Take 1,000 mcg by mouth once daily. DAILY VITAMIN TAB Take one(1) tablet daily. (Patient taking differently: Take 1 tablet by mouth once daily.) CPAP Bipap 17/13 cm H2O, Heat Humidity, suitable mask, [employer] supplies, opt Chinstrap, G47.33. (Patient not taking: Reported on 12/28/2024) No current facility-administered medications on file prior to visit. REVIEW OF SYSTEMS: 10 point ROS was reviewed and negative unless indicated in the HPI PHYSICAL EXAMINATION: 12/28/24 1608 BP: 128/76 BP Site: Left Arm BP Position: Sitting BP Cuff Size: Large Adult Pulse: 70 SpO2: 96% Weight: 117 kg (258 lb) Height: 165.1 cm (5' 5) General: no acute distress, alert and orientated X 3 Eyes:EOMI, anicteric sclera Neck - supple, no significant adenopathy Thyroid: enlarged in size, asymmetry+, has discrete right palpable nodules Neuro: alert, oriented, normal speech, no focal findings noted CV: normal rate and regular rhythm, S1 and S2 normal. Chest: Lungs clear to auscultation. No wheezing, rhonchi, rales Abdominal: soft, non-tender. Bowel sounds normal. Musculoskeletal: no joint tenderness, deformity or swelling Extremities: no edema, no discoloration Skin: no rash or erythema LABS AND IMAGING TSH Date Value Ref Range Status 11/12/2024 1.430 0.270 - 4.200 mIU/L Final Free T4 Date Value Ref Range Status 11/12/2024 1.4 0.9 - 1.7 ng/dL Final Thyroid ultrasound 03/18/2023: COMPARISON: 03/08/2022. RESULT: Right Lobe: 3.8 x 1.7 x 2.1 [...] 2 points Echogenicity: Hypoechoic, 2 points Shape: Yybwb-absz-ndfp, 0 points Margin: Smooth, 0 points Echogenic [...] 2 points Echogenicity: Hypoechoic, 2 points Shape: Vzrli-zzde-lbbf, 0 points Margin: Smooth, 0 points Echogenic [...] 2 points Echogenicity: Hypoechoic, 2 points Shape: Ezeat-yjmx-ebbz, 0 points Margin: Smooth, 0 points Echogenic [...] 2 points Echogenicity: Hypoechoic, 2 points Shape: Xdktc-uahg-styc, 0 points Margin: Smooth, 0 points Echogenic foci (add points for all that apply): None, 0 points Internal vascularity: present Interval growth: No significant growth given differences in technique TI-RADS Category: TR4 ACR Recommendation: TI-RADS 4 nodule. Follow up imaging in 1, 2, 3 and 5 years is advised. FNAB : 04/25/23: FINAL DIAGNOSIS A - THYROID RIGHT FINE NEEDLE ASPIRATION - RIGHT MID Benign. Benign thyroid nodule Thyroid ultrasound : 02/21/2024: COMPARISON: Thyroid ultrasound 03/18/2023 RESULT: Right Lobe: 4.4 x 1.7 x 1.9 cm; heterogeneous echogenicity, expected vascular flow. Left Lobe: 4.5 x 1.8 x 1.6 cm; heterogeneous echogenicity, expected vascular flow. Isthmus: 0.3 cm The most suspicious thyroid nodule(s) (up to four) as below: NODULE 1: Location: Right upper pole Size: 0.9 x 0.6 x 0.6 cm Characteristics: Composition: Solid or almost completely solid, 2 points Echogenicity: Hypoechoic, 2 points Shape: Bahed-aboo-rlsz, 0 points Margin: Smooth, 0 points Echogenic foci (add points for all that apply): None, 0 points Internal vascularity: absent Interval growth: No significant growth given differences in technique TI-RADS Category: TR4 ACR Recommendation: TI-RADS 4 nodule. No FNA or follow-up imaging is advised. NODULE 2: Location: Right mid Size: 2 x 1.4 x 0.9 cm Characteristics: Composition: Solid or almost completely solid, 2 points Echogenicity: Hypoechoic, 2 points Shape: Sikoh-afpf-cbzh, 0 points Margin: Smooth, 0 points Echogenic foci (add points for all that apply): Punctate echogenic foci, 3 points Internal vascularity: absent Interval growth: No significant growth given differences in technique TI-RADS Category: TR5 ACR Recommendation: TI-RADS 5 nodule. FNA is advised. NODULE 3: Location: Right mid to lower pole Size: 1.4 x 1 x 0.9 cm Characteristics: Composition: Solid or almost completely solid, 2 points Echogenicity: Hypoechoic, 2 points Shape: Wbaeo-iafr-qqud, 0 points Margin: Smooth, 0 points Echogenic foci (add points for all that apply): None, 0 points Internal vascularity: absent Interval growth: No significant growth given differences in technique TI-RADS Category: TR4 ACR Recommendation: TI-RADS 4 nodule. Follow up imaging in 1, 2, 3 and 5 years is advised. NODULE 4: Location: Left mid Size: 1 x 0.6 x 1 cm Characteristics: Composition: Solid or almost completely solid, 2 points Echogenicity: Hypoechoic, 2 points Shape: Bmheq-xuiq-vceb, 0 points Margin: Smooth, 0 points Echogenic foci (add points for all that apply): None, 0 points Internal vascularity: absent Interval growth: No significant growth given differences in technique TI-RADS Category: TR4 ACR Recommendation: TI-RADS 4 nodule. Follow up imaging in 1, 2, 3 and [address] soft tissue neck: 12/18/24: Thyroid gland: Heterogeneous thyroid gland with 1.8 cm RIGHT thyroid lobe nodule most recently characterized on thyroid ultrasound 02/21/2024. Lymph Nodes: No cervical lymphadenopathy by size criteria. ASSESSMENT AND PLAN: Priscilla Ramos is a 69 year old female presenting to endocrinology for evaluation of right thyroid nodule. 1. Right Thyroid nodule: - TSH normal in 10/2024 - I reviewed the images of thyroid ultrasound done last year with her, as well as compared them to thyroid ultrasound in 02/2023 - I discussed with the patient the following: The prevalence of thyroid nodules and risk of cancer The indication, benefits and risks of doing an FNA as well as the benefits and risks of the alternatives. Discussed hyperfunctioning nodules and management, possible surgery if >4 cm/ or if compressive symptoms The management based on results of the biopsy - I reviewed that there has not been a significant change in the dominant nodule from the biopsy and hence following up with thyroid ultrasound this year, advised imaging in 2 months from now, which would be one year from the last imaging. All questions welcomed and answered to satisfaction Patient understands and agrees with the plan discussed. Joan Navas MD [facility] Endocrinology and Metabolism [facility] Medical Decision Making: Problems: Low: Stable chronic illness Data: Unique test result(s) reviewed: 3+ Unique test(s) ordered: 1 Independent interpretation of test from other physician/QHCP Risk: Moderate: Moderate risk from testing/treatment Medical Decision Making Level: 4 - Moderate [1] Social History Tobacco Use Smoking status: Never Passive exposure: Never Smokeless tobacco: Never Vaping Use Vaping status: Never Used Substance Use Topics Alcohol use: Yes Alcohol/week: 18.0 standard drinks of alcohol Types: 18 Glasses of wine per week Comment: wine with supper Drug use: No Joan Navas MD 12/28/2024 4:22 PM Signed Please do thyroid ultrasound in 02/2025 Allergies As of Date: 12/28/2024 (No Known Allergies) Date Reviewed: 12/28/2024 Reviewed by: Teri Cantor RN - Fully Assessed Reason for Visit: Thyroid Nodule [3960] Primary Visit Diagnosis:Multiple thyroid nodules [E04.2] Order(s):US THYROID/PARATHYROID [[id number]] Order #: [id number] FUTURE Prescriptions as of 01/18/2025 - Hculb-8-PZM-EPA-Fish Oil (FISH OIL) 1,000 (120-180) mg cap Take 2 g by mouth two times a day. - triamcinolone acetonide (KENALOG) 0.1 % cream Apply to affected areas twice daily as needed for up to 3 weeks per month. Avoid face, armpits, and groin. - TIADYLT ER 120 mg 24 hr capsule Take 1 capsule by mouth once daily. - sulfaSALAzine (AZULFIDINE) 500 mg tablet Take 500mg every morning AND 1000mg every evening - traZODone (DESYREL) 50 mg tablet Take 0.5 tablets by mouth daily at bedtime. - benzonatate (TESSALON PERLE) 100 mg capsule Take 1 capsule by mouth three times a day as needed. - gabapentin (NEURONTIN) 400 mg capsule Take 2 capsule 60-90 minutes before bedtime. - acetaminophen (TYLENOL ARTHRITIS PAIN) 650 mg CR tablet Take 1,300 mg by mouth once daily. - levothyroxine (SYNTHROID) 25 mcg tablet Take 1 tablet by mouth once daily. - rosuvastatin (CRESTOR) 5 mg tablet Take 1 tablet by mouth every Saturday, Saturday, and Saturday. - hydroCHLOROthiazide 25 mg tablet Take 1 tablet by mouth every afternoon. - colestipol (COLESTID) 1 gram tablet Take 1-2 tablets by mouth once daily. As directed - BIPAP - losartan (COZAAR) 100 mg tablet Take 100 mg by mouth once daily. - aspirin 81 mg chewable tablet Take 81 mg by mouth once daily. - ubidecarenone Q-10 (COENZYME Q-10) 10 mg cap Take 100 mg by mouth two times a day. - hyperimmune colostrum, bovine 200 mg tab Take 2 tablets by mouth twice daily. - Ca/D3/mag ox/zinc/coping machine assembler/nicholas/bor (CALCIUM 600-D3 PLUS, MAG-ZINC, ORAL) - turmeric/turmeric ext/pepr ext (TURMERIC-TURMERIC EXT-PEPPER) 900-100-5 mg cap - CPAP Bipap 17/13 cm H2O, Heat Humidity, suitable mask, [employer] supplies, opt Chinstrap, G47.33. - cholecalciferol (VITAMIN D3) 2,000 unit tablet Take 2,000 Units by mouth once daily. - FLUoxetine HCl (PROZAC) 40 mg capsule Take 1 capsule by mouth once daily. (Dr. Garcia) - CYANOCOBALAMIN, VITAMIN B-12, (VITAMIN B-12 ORAL) Take by mouth. - buPROPion XL (WELLBUTRIN XL) 150 mg 24 hr tablet Take one(1) tablet daily. - Biotin (NAIL-EX) 2,500 mcg ORAL Tab Take 1,000 mcg by mouth once daily. - DAILY VITAMIN TAB Take one(1) tablet daily. Medication notes this encounter COLESTIPOL 1 GRAM TABLET >> Teri Cantor RN 12/28/2024 3:57 PM >> TERI CANTOR Mon Dec 28, 2024 3:57 PM Problem List As Of Date 12/28/2024 Noted Resolved Fibromyalgia [M79.7] DYSTHYMIC DISORDER [F34.1] Palpitations [R00.2] 11/23/2006 01/29/2014 Dyslipidemia [E78.5] 11/25/2006 Osteopenia [M85.80] 12/14/2010 Arthrosis [M19.90] 12/14/2010 Dysmetabolic syndrome [E88.810] 10/07/2012 Obstructive sleep apnea treated with bilevel po*09/09/2013 Insomnia [G47.00] 09/09/2013 Elevated antinuclear antibody (KELTON) [...] 07/25/2022 CAD (coronary artery disease) [I25.10] 07/25/2022 Depression, recurrent (HCC) [F33.9] 12/16/2022 Intermittent claudication (HCC) [I73.9] 12/16/2022 Acute back pain with sciatica, left [M54.42] 02/07/2023 Lumbar radiculopathy [M54.16] 02/25/2024 Other instructions from your clinician: Please do thyroid ultrasound in 02/2025 Disposition: Return in about 10 weeks (around 03/08/2025). Follow-up and Disposition History for Encounter Date Provider Department Center 12/28/2024 [id number], SNIGDHA*DAVID Shaw [facility] Encounter Status:Closed by JOAN NAVAS on 01/18/25 CT NECK SOFT TISSUE W IVCON Observed: 2:45 PM Status: F Source: [facility] * * *Final Report* * * DATE OF EXAM: Dec 18 2024 2:45PM [facility] 0013 - CT NECK SOFT TISSUE W IVCON / PROCEDURE REASON: Chronic parotitis * * * * Physician Interpretation * * * * CT NECK SOFT TISSUE W IVCON CLINICAL HISTORY: Chronic parotitis Parotid region mass, recurrent left parotitis ??? Salivary gland stones . 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 TECHNIQUE: A series of contiguous helical scans were performed from the skull base to the aortic arch with intravenous contrast. Supplemental: N/A Contrast: Omnipaque 350. Contrast Dose: 100 cc Route of Administration: IV CT Radiation dose: Integrated Dose-length product (DLP) for this visit = 928 mGy*cm. CT Dose Reduction Employed: Automated exposure control(AEC) and iterative recon COMPARISON: Thyroid ultrasound 02/21/2024 RESULT: Localizer images: No additional findings. Postoperative/Treatment Change: None apparent. Aerodigestive tract: Normal. Major salivary glands: The LEFT parotid gland appears slightly smaller than the RIGHT, nonspecific and otherwise within normal limits. No evidence of radiopaque sialolith. The remaining salivary glands appear unremarkable. Thyroid gland: Heterogeneous thyroid gland with 1.8 cm RIGHT thyroid lobe nodule most recently characterized on thyroid ultrasound 02/21/2024. Lymph Nodes: No cervical lymphadenopathy by size criteria. Carotid/Parapharyngeal/Retropharyngeal Spaces: Atherosclerosis of the carotid bifurcations. Otherwise patent extracranial carotid systems and internal jugular veins bilaterally. Otherwise normal. Orbits, Face and Skull Base: Paranasal sinuses, mastoid air cells, and middle ear cavities are clear. Otherwise normal. Imaged intracranial contents: No intracranial mass effect or hydrocephalus. No abnormal intracranial enhancement. Cervical spine and remaining osseous structures: No osteolytic or osteoblastic process. Straightening and mild reversal of the cervical lordosis. Multilevel degenerative changes with disc bulge and posterior disc osteophyte complex formation at C4-C6 resulting in up to moderate spinal canal narrowing at C5-6. No high-grade cervical spinal canal stenosis. Multilevel uncovertebral hypertrophy and facet arthropathy resulting in up to moderate bilateral neuroforaminal narrowing at C5-6 and C6-7. Lung apices: No consolidation or mass. Other: Not applicable. IMPRESSION: No CT evidence of acute sialolithiasis or sialoadenitis. Subtle asymmetric decreased volume of the LEFT parotid gland compared to the RIGHT is nonspecific but may represent sequela of prior sialoadenitis. No pathologic cervical lymphadenopathy by size criteria. Heterogeneous thyroid gland with 1.8 cm RIGHT thyroid lobe nodule, most recently characterized on thyroid ultrasound 02/21/2024 which provided TI-RADS ultrasound criteria evaluation and further clinical decision support regarding observation versus tissue sampling. Fall Internship: [facility] Transcribe Date/Time: Dec 18 2024 4:17P Dictated by : TOMAS APPLE MD This examination was interpreted and the report reviewed and electronically signed by: TOMAS APPLE MD on Dec 18 2024 4:23PM EST [id number] PROGRESS Observed: 12/09/2024 2:46 PM Status: COMPLETED Source: [facility] HNO ID: [id number] Author: KUSH LO, DO Service: ? Author Type: Physician Type: Progress Notes Filed: 12/09/2024 15:30 Note Text: HPI: Priscilla Ramos is a 69 year old female who presents to the office with intermittent left cheek swelling. - for a few years, she has noticed intermittent swelling of the left cheek area - diagnosed with blocked salivary gland in the area in the past, resolved with lemon sour candies - she used to get it once per year but this past summer had it briefly 3 times - denies antibiotic use for this - feels dry mouth sometimes - seems to stay well-hydrated PAST MEDICAL HISTORY Diagnosis Date Abnormal mammogram, [...] Current Outpatient Medications Medication Sig Dispense Refill Kpcqn-4-VYT-EPA-Fish Oil (FISH OIL) 1,000 (120-180) mg cap Take 2 g by mouth two times a day. triamcinolone acetonide (KENALOG) 0.1 % cream Apply to affected areas twice daily as needed for up to 3 weeks per month. Avoid face, armpits, and groin. 30 g 3 TIADYLT ER 120 mg 24 hr capsule Take 1 capsule by mouth once daily. sulfaSALAzine (AZULFIDINE) 500 mg tablet Take 500mg every morning AND 1000mg every evening 270 tablet 0 traZODone (DESYREL) 50 mg tablet Take 0.5 tablets by mouth daily at bedtime. 0 benzonatate (TESSALON PERLE) 100 mg capsule Take 1 capsule by mouth three times a day as needed. 30 capsule 0 gabapentin (NEURONTIN) 400 mg capsule Take 2 capsule 60-90 minutes before bedtime. 180 capsule 1 acetaminophen (TYLENOL ARTHRITIS PAIN) 650 mg CR tablet Take 1,300 mg by mouth once daily. levothyroxine (SYNTHROID) 25 mcg tablet Take 1 tablet by mouth once daily. 90 tablet 3 rosuvastatin (CRESTOR) 5 mg tablet Take 1 tablet by mouth every Saturday, Saturday, and Saturday. 90 tablet 1 hydroCHLOROthiazide 25 mg tablet Take 1 tablet by mouth every afternoon. colestipol (COLESTID) 1 gram tablet Take 1-2 tablets by mouth once daily. As directed 60 tablet 2 BIPAP losartan (COZAAR) 100 mg tablet Take 100 mg by mouth once daily. aspirin 81 mg chewable tablet Take 81 mg by mouth once daily. ubidecarenone Q-10 (COENZYME Q-10) 10 mg cap Take 100 mg by mouth two times a day. hyperimmune colostrum, bovine 200 mg tab Take 2 tablets by mouth twice daily. Ca/D3/mag ox/zinc/coping machine assembler/nicholas/bor (CALCIUM 600-D3 PLUS, MAG-ZINC, ORAL) turmeric/turmeric ext/pepr [...] VITAMIN TAB Take one(1) tablet daily. 0 No current facility-administered medications for this visit. ALLERGIES No Known Allergies PAST SURGICAL HISTORY Procedure Laterality Date [facility] right DELIVERY ONLY , low [...] TUBE OVARY 1999 Hysterectomy, AVANI ovaries remain SOCIAL HISTORY[1] FAMILY HISTORY Problem Relation Age of Onset [...] Family History Clotting Disorder No Family History Physical Exam BP 137/81 Pulse 94 Resp 16 Ht 165.1 cm (5' 5) Wt 122.5 kg (270 lb) BMI 44.93 kg/m? General Appearance: Well-developed, well-nourished, no acute distress. Communication: Reasonable historian whose voice is normal. Psych/Mental Status: Normal affect. Head/Face: Normocephalic, without evidence of trauma. Facial muscles appear to be functioning normally. Temporomandibular joints move satisfactorily and are nontender. Eyes: Extraocular muscles appear intact. Salivary Glands: Parotid/Jessenia's-normal to palpation without evidence of duct abnormality. Submandibular/Sac's-without evidence of palpable abnormality and no visible duct lesions. Ears: External ears appear normally formed. Tympanic membranes intact bilaterally. Nose: External nose is grossly normal. Anterior rhinoscopy finds the mucous membranes to be moist and without obvious lesions. There is mild septal deviation with prominence of the inferior turbinates. Oral Cavity/Oropharynx: The mucous membranes of the pharynx, lips and tongue appear grossly normal. Dentition is unremarkable. Palate and floor of mouth are intact. Neck: There are no masses, adenopathy, or thyromegaly and the trachea is midline. Respiratory: no stridor or wheezing. Reviewed last PCP note ASSESSMENT/PLAN: 1. Recurrent parotitis- - CT NECK SOFT TISSUE W IVCON - would like to further evaluate for stones - continue good hydration, good oral hygiene, gland massage, and sour candies prn - office to call with results 30 minute total time including preparation, obtaining/reviewing history, exam, interpreting results, ordering, counseling/education, referring/communicating and documentation. Kush Lo DO [1] Social History Tobacco Use Smoking status: Never Smokeless tobacco: Never Vaping Use Vaping status: Never Used Substance Use Topics Alcohol use: Yes Alcohol/week: 18.0 standard drinks of alcohol Types: 18 Glasses of wine per week Comment: wine with supper Drug use: No CNOV Observed: 12/09/2024 2:30 PM Status: COMPLETED Source: [facility] Office Visit (OTFGFL) DWAYNE RAMOSANOR Jaja ([id number]) 1955 F Date Time Provider Department 12/09/24 2:30 PM KUSH LO OTFL During your visit today, we recorded the following information about you: Pulse Respiration Blood pressure Weight 94/minute 16/minute 137/81 122.5 kg Height 1.651 m Kush Lo DO 12/09/2024 3:30 PM Signed HPI: Priscilla Ramos is a 69 year old female who presents to the office with intermittent left cheek swelling. - for a few years, she has noticed intermittent swelling of the left cheek area - diagnosed with blocked salivary gland in the area in the past, resolved with lemon sour candies - she used to get it once per year but this past summer had it briefly 3 times - denies antibiotic use for this - feels dry mouth sometimes - seems to stay well-hydrated PAST MEDICAL HISTORY Diagnosis Date Abnormal mammogram, [...] Current Outpatient Medications Medication Sig Dispense Refill Aegfw-5-XJU-EPA-Fish Oil (FISH OIL) 1,000 (120-180) mg cap Take 2 g by mouth two times a day. triamcinolone acetonide (KENALOG) 0.1 % cream Apply to affected areas twice daily as needed for up to 3 weeks per month. Avoid face, armpits, and groin. 30 g 3 TIADYLT ER 120 mg 24 hr capsule Take 1 capsule by mouth once daily. sulfaSALAzine (AZULFIDINE) 500 mg tablet Take 500mg every morning AND 1000mg every evening 270 tablet 0 traZODone (DESYREL) 50 mg tablet Take 0.5 tablets by mouth daily at bedtime. 0 benzonatate (TESSALON PERLE) 100 mg capsule Take 1 capsule by mouth three times a day as needed. 30 capsule 0 gabapentin (NEURONTIN) 400 mg capsule Take 2 capsule 60-90 minutes before bedtime. 180 capsule 1 acetaminophen (TYLENOL ARTHRITIS PAIN) 650 mg CR tablet Take 1,300 mg by mouth once daily. levothyroxine (SYNTHROID) 25 mcg tablet Take 1 tablet by mouth once daily. 90 tablet 3 rosuvastatin (CRESTOR) 5 mg tablet Take 1 tablet by mouth every Saturday, Saturday, and Saturday. 90 tablet 1 hydroCHLOROthiazide 25 mg tablet Take 1 tablet by mouth every afternoon. colestipol (COLESTID) 1 gram tablet Take 1-2 tablets by mouth once daily. As directed 60 tablet 2 BIPAP losartan (COZAAR) 100 mg tablet Take 100 mg by mouth once daily. aspirin 81 mg chewable tablet Take 81 mg by mouth once daily. ubidecarenone Q-10 (COENZYME Q-10) 10 mg cap Take 100 mg by mouth two times a day. hyperimmune colostrum, bovine 200 mg tab Take 2 tablets by mouth twice daily. Ca/D3/mag ox/zinc/coping machine assembler/nicholas/bor (CALCIUM 600-D3 PLUS, MAG-ZINC, ORAL) turmeric/turmeric ext/pepr [...] VITAMIN TAB Take one(1) tablet daily. 0 No current facility-administered medications for this visit. ALLERGIES No Known Allergies PAST SURGICAL HISTORY Procedure Laterality Date ARTHRP [...] TUBE OVARY 1999 Hysterectomy, AVANI ovaries remain SOCIAL HISTORY[1] FAMILY HISTORY Problem Relation Age of Onset [...] Family History Clotting Disorder No Family History Physical Exam BP 137/81 Pulse 94 Resp 16 Ht 165.1 cm (5' 5) Wt 122.5 kg (270 lb) BMI 44.93 kg/m? General Appearance: Well-developed, well-nourished, no acute distress. Communication: Reasonable historian whose voice is normal. Psych/Mental Status: Normal affect. Head/Face: Normocephalic, without evidence of trauma. Facial muscles appear to be functioning normally. Temporomandibular joints move satisfactorily and are nontender. Eyes: Extraocular muscles appear intact. Salivary Glands: Parotid/Jessenia's-normal to palpation without evidence of duct abnormality. Submandibular/Sac's-without evidence of palpable abnormality and no visible duct lesions. Ears: External ears appear normally formed. Tympanic membranes intact bilaterally. Nose: External nose is grossly normal. Anterior rhinoscopy finds the mucous membranes to be moist and without obvious lesions. There is mild septal deviation with prominence of the inferior turbinates. Oral Cavity/Oropharynx: The mucous membranes of the pharynx, lips and tongue appear grossly normal. Dentition is unremarkable. Palate and floor of mouth are intact. Neck: There are no masses, adenopathy, or thyromegaly and the trachea is midline. Respiratory: no stridor or wheezing. Reviewed last PCP note ASSESSMENT/PLAN: 1. Recurrent parotitis- - CT NECK SOFT TISSUE W IVCON - would like to further evaluate for stones - continue good hydration, good oral hygiene, gland massage, and sour candies prn - office to call with results 30 minute total time including preparation, obtaining/reviewing history, exam, interpreting results, ordering, counseling/education, referring/communicating and documentation. Kush Lo DO [1] Social History Tobacco Use Smoking status: Never Smokeless tobacco: Never Vaping Use Vaping status: Never Used Substance Use Topics Alcohol use: Yes Alcohol/week: 18.0 standard drinks of alcohol Types: 18 Glasses of wine per week Comment: wine with supper Drug use: No Allergies As of Date: 12/09/2024 (No Known Allergies) Date Reviewed: 12/09/2024 Reviewed by: Jocelyne Kumar MA - Fully Assessed Reason for Visit: Facial Swelling [1292] Cmt: States her left cheek will swell on occasion, states it has happened more frequently this summer Primary Visit Diagnosis:Chronic parotitis [K11.23] Order(s):CT NECK SOFT TISSUE W IVCON [[id number]] Order #: [id number] FUTURE iv contrast (will be provided with radiology test)Inject 1 each intravenously one time only for [address] Neck W IVCON No IV access, insert saline lock prior to the sedation, infusion, injection for imaging exam. Discontinue saline lock post exam. If Pt. has a central line or IVAD, may access for administration according to line specific nursing protocol. Once exam is complete flush line and de-access according to line specific nursing protocol in the CT contrast administration guidelines link.Disp: 1 eachRfl: 0 Prescriptions as of 12/09/2024 - Ynvnn-5-MMX-EPA-Fish Oil (FISH OIL) 1,000 (120-180) mg cap Take 2 g by mouth two times a day. - iv contrast (will be provided with radiology test) Inject 1 each intravenously one time only for [address] Neck W IVCON No IV access, insert saline lock prior to the sedation, infusion, injection for imaging exam. Discontinue saline lock post exam. If Pt. has a central line or IVAD, may access for administration according to line specific nursing protocol. Once exam is complete flush line and de-access according to line specific nursing protocol in the CT contrast administration guidelines link. - triamcinolone acetonide (KENALOG) 0.1 % cream Apply to affected areas twice daily as needed for up to 3 weeks per month. Avoid face, armpits, and groin. - TIADYLT ER 120 mg 24 hr capsule Take 1 capsule by mouth once daily. - sulfaSALAzine (AZULFIDINE) 500 mg tablet Take 500mg every morning AND 1000mg every evening - traZODone (DESYREL) 50 mg tablet Take 0.5 tablets by mouth daily at bedtime. - benzonatate (TESSALON PERLE) 100 mg capsule Take 1 capsule by mouth three times a day as needed. - gabapentin (NEURONTIN) 400 mg capsule Take 2 capsule 60-90 minutes before bedtime. - acetaminophen (TYLENOL ARTHRITIS PAIN) 650 mg CR tablet Take 1,300 mg by mouth once daily. - levothyroxine (SYNTHROID) 25 mcg tablet Take 1 tablet by mouth once daily. - rosuvastatin (CRESTOR) 5 mg tablet Take 1 tablet by mouth every Saturday, Saturday, and Saturday. - hydroCHLOROthiazide 25 mg tablet Take 1 tablet by mouth every afternoon. - colestipol (COLESTID) 1 gram tablet Take 1-2 tablets by mouth once daily. As directed - BIPAP - losartan (COZAAR) 100 mg tablet Take 100 mg by mouth once daily. - aspirin 81 mg chewable tablet Take 81 mg by mouth once daily. - ubidecarenone Q-10 (COENZYME Q-10) 10 mg cap Take 100 mg by mouth two times a day. - hyperimmune colostrum, bovine 200 mg tab Take 2 tablets by mouth twice daily. - Ca/D3/mag ox/zinc/coping machine assembler/nicholas/bor (CALCIUM 600-D3 PLUS, MAG-ZINC, ORAL) - turmeric/turmeric ext/pepr ext (TURMERIC-TURMERIC EXT-PEPPER) 900-100-5 mg cap - CPAP Bipap 17/13 cm H2O, Heat Humidity, suitable mask, [employer] supplies, opt Chinstrap, G47.33. - cholecalciferol (VITAMIN D3) 2,000 unit tablet Take 2,000 Units by mouth once daily. - FLUoxetine HCl (PROZAC) 40 mg capsule Take 1 capsule by mouth once daily. (Dr. Garcia) - CYANOCOBALAMIN, VITAMIN B-12, (VITAMIN B-12 ORAL) Take by mouth. - buPROPion XL (WELLBUTRIN XL) 150 mg 24 hr tablet Take one(1) tablet daily. - Biotin (NAIL-EX) 2,500 mcg ORAL Tab Take 1,000 mcg by mouth once daily. - DAILY VITAMIN TAB Take one(1) tablet daily. Problem List As Of Date 12/09/2024 Noted Resolved Fibromyalgia [M79.7] DYSTHYMIC DISORDER [F34.1] Palpitations [R00.2] 11/23/2006 01/29/2014 Dyslipidemia [E78.5] 11/25/2006 Osteopenia [M85.80] 12/14/2010 Arthrosis [M19.90] 12/14/2010 Dysmetabolic syndrome [E88.810] 10/07/2012 Obstructive sleep apnea treated with bilevel po*09/09/2013 Insomnia [G47.00] 09/09/2013 Elevated antinuclear antibody (KELTON) [...] 07/25/2022 CAD (coronary artery disease) [I25.10] 07/25/2022 Depression, recurrent (HCC) [F33.9] 12/16/2022 Intermittent claudication (HCC) [I73.9] 12/16/2022 Acute back pain with sciatica, left [M54.42] 02/07/2023 Lumbar radiculopathy [M54.16] 02/25/2024 Prescriptions ordered this encounter Disp Refills Start End IV CONTRAST (RADIOLOGY PROCEDURE) - * 1 ea* 0 12/09/2024 12/09/2024 Class: In Office Route: IV Sig: Inject 1 each intravenously one time only for [address] Neck W IVCON No IV access, insert saline lock prior to the sedation, infusion, injection for imaging exam. Discontinue saline lock post exam. If Pt. has a central line or IVAD, may access for administration according to line specific nursing protocol. Once exam is complete flush line and de-access according to line specific nursing protocol in the CT contrast administration guidelines link. Medications Discontinued During This Encounter Prescriptions - diclofenac (VOLTAREN ARTHRITIS PAIN) 1 % topical gel (Discontinued) Apply 2 g to affected area four times daily as needed (wrist pain). 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 Skin, lef t medial thigh, shave biopsy: - Verruca vulgaris, inflamed. WFB/SAB 12/09/2024 at 1655 EDT PATHOLOGY [id number] GROSS DESCRIPTION A. Skin Result Comment: Received in formalin is a 1.2 x 0.8 x 0.9 cm shave of skin. On the skin surface there is a 1.0 cm weiner-spivey, villous area. The specimen is trisected and totally submitted in two cassettes. BC December 08, 2024 6:10 PM Gross examination performed at [facility], [address] [place] [address] PATHOLOGY CDX2 CLINICAL HISTORY Result Comment: 0.8 x 0.6 cm erythematous keratotic papule, R/O VV vs SCC PATHOLOGY [facility] FINAL PERFORMING LAB Result Comment: Diagnostic i nterpretation performed at: [facility], [address] [place] [address], [place] [address] CLIA# [id number] Byproduct Engineer: Eris Carrillo MD PATHOLOGY [id number] AP DISCLAIMER Result Comment: Laboratory D eveloped Test (LDT) Disclaimer: Performance characteristics of immunohistochemical, immunofluorescent, and chromogenic in-situ hybridization tests have been determined by the performing laboratory within [facility]'s [facility] Pathology and Laboratory Medicine Department ([facility] ([facility]), [facility], [facility], [facility], [facility], [facility], or [facility]) in a manner consistent with CLIA requirements. One or more of these tests may not have been cleared or approved by the FDA. [facility] is regulated under CLIA as qualified to perform high-complexity testing. These tests are used for clinical purposes. These should not be regarded as investigational or for research. Positive and negative controls stain appropriately. Performed By: #### [id number] # ### [facility] CLIA [id number] [address] [place] [address] [place] CNOV Observed: 12/08/2024 10:15 AM Status: COMPLETED Source: [facility] Office Visit (DERMST) PRISCILLA RAMOS ([id number]) 1955 F Date Time Provider Department 12/08/24 10:15 AM ANNA PARKS During your visit today, we recorded the following information about you: Anna Parks APRN.LOAD OUT WORKER 12/08/2024 10:41 AM Signed NEW PATIENT Chief Complaint: Full Body Skin Check History of Present Ilness: Priscilla Ramos is a 69 year old female who presents today for a full body skin examination. 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 No Pertinent Family medical history: History of melanoma: No History of non melanoma skin cancer: No Other family history (autoimmune, dermatologic, etc): None Past Medical History is reviewed. Medication List is reviewed. ROS: Skin as above. Physical Exam: Carvalho skin type: II The patient is a pleasant female in no apparent distress. Alert and oriented x 3. A skin exam performed of the Scalp, face, ears, neck, chest, back, abdomen, bilateral upper extremities, bilateral lower extremities, buttocks, hands, feet, nails and hair is significant for: Generalized Regular and symmetric hyperpigmented macules and papules throughout with regular pigment network under dermoscopy Generalized Stuck-on verrucous, variably pigmented papules and plaques throughout Generalized Densely scattered light weiner macules noted on all sun exposed areas Generalized Small murphy red papules throughout Left Medial Thigh 0.8 x 0.6 cm erythematous keratotic papule, R/O VV vs SCC Right Forearm - Anterior Erythematous confluent scaly papules Left Inframammary Fold, Right Postauricular Area Cystic nodules with central punctum Assessment and Plan: SKIN EXAM, SCREENING FOR CANCER Generalized Advised sun protection with broad-spectrum SPF 30+, wide brim hats, sun glasses, protective clothing, and seeking shade during the peak hours of sun 10am-4pm Return for regular skin checks as discussed NEOPLASM OF UNSPECIFIED BEHAVIOR OF BONE, SOFT TISSUE, AND SKIN Left Medial Thigh - SKIN / NAIL BIOPSY Type of biopsy: tangential Informed consent: discussed and consent obtained Timeout: patient name, date of , surgical site, and procedure verified Anesthesia: the lesion was anesthetized in a standard fashion Anesthetic: 1% lidocaine w/ epinephrine 1-100,000 local infiltration Instrument used: DermaBlade Hemostasis achieved with: aluminum chloride Outcome: patient tolerated procedure well Post-procedure details: sterile dressing applied and wound care instructions given Dressing type: bandage and petrolatum Specimen A - Surgical Pathology ALLERGIC CONTACT DERMATITIS, UNSPECIFIED TRIGGER Right Forearm - Anterior Discussed elimination of exacerbating factors, religious of the skin barrier function and hydration of the skin Recommend liberal use of fragrance free skin care/gentle emollients such as vanicream, cetaphil, cerave Start triamcinolone 0.1% cream BID as needed for up to 21 days per month Discussed risk/benefits/alterations including possible side effects - skin thinning, striae, and alterations in skin pigmentation - triamcinolone acetonide (KENALOG) 0.1 % cream - Right Forearm - Anterior - Apply to affected areas twice daily as needed for up to 3 weeks per month. Avoid face, armpits, and groin. EIC (EPIDERMAL INCLUSION CYST) (2) Left Inframammary Fold, Right Postauricular Area Educated and reassured on benign nature Discussed treatment options including observation vs surgical excision along with risks, benefits, and alternatives of each Patient declines treatment at this time, would like to continue to observe MULTIPLE BENIGN NEVI Generalized Reassured and educated on benign nature of lesions. Sunblock/sunscreen protection reviewed. Recommend observation and encouraged to notify office of changes. SEBORRHEIC KERATOSIS Generalized Reassured and educated on benign nature of lesions. LENTIGINES Generalized Reassured and educated on benign nature of lesions. Sunblock/sunscreen protection reviewed. Recommend observation and encouraged to notify office of changes. MURPHY ANGIOMA Generalized Reassured and educated on benign nature of lesions. Sunscreen and sun protection reviewed. Should any areas change in size, shape or color, bleed or become tender, the patient will contact the office for evaluation sooner than their interval appointment. Follow up: pending pathology and 1 year for Full Body Skin Check UNIVERSAL PROTOCOL / SAFETY CHECKLIST Procedure to be Performed: Shave biopsy x 1 Sign In: A Moment of CARE was completed. Appropriate PPE (Personal Protective Equipment) worn by all providers involved with the procedure. Patient/Surrogate Stated/Verified: Patient name, Date of , Relevant allergies, and The intended procedure Time Out: Relevant labs, photos, and/or imaging studies have been reviewed. Intended patient and procedure match the source document(s) (e.g. consent, HANDP, associated studies [imaging, pathology]) match the intended patient and procedure. Correct side/site has been marked and visible. Medications required for this procedure are verified. Sign Out: Specimens are all correctly labeled and sent. All instruments, equipment, possible retained foreign bodies are accounted for. Yes. The post-procedure plan of care has been communicated to the patient or surrogate. Intake completed by Faye Soriano LPN The documentation for this note was completed by Autumn Black LPN acting as scribe for Anna Parks APRN.ISAURO. I agree with the Chief Complaint, ROS, and Past Histories independently gathered by the clinical direct support professional home health and the remaining scribed note accurately describes my personal service to the patient. LISET Dougherty Anna, LPN 12/08/2024 10:33 AM Addendum GENERAL SUN SAFETY Thank you for allowing me to examine you for signs of skin cancer today. We had an opportunity to discuss my findings and any treatments I recommended. I believe that there are several steps that a person can do to help prevent skin cancers and to detect them at an early, treatable stage: 1. I highly recommend that once a month you perform your own complete skin check looking for changing or unusual spots. Use a wall-mounted mirror and a hand mirror to assist in seeing body areas that are difficult to see otherwise. If you have a family member that can assist, this is often helpful. Additional information can be obtained at: www.skincancer.org/cufr-zlmrgx-lkglowesrns/early-detection 2. In many cases, skin cancer can be prevented. The best way to protect yourself is to avoid too much sun and sunburns. Health care providers believe that ultraviolet rays (UV rays) from the sun damage the skin and over time lead to skin cancer. Here are ways to protect yourself: -Don't spend long periods of time in direct sunlight. -Wear hats with brims to protect your face and ears. -Wear long-sleeved shirts and pants to protect your arms and legs. -Use broad spectrum sunscreens with a SPF (skin protection factor) of 30 or higher that protect against burning and tanning rays. Apply the lotion 30 minutes before you go outside. (Broad-spectrum sunscreens protect against UV-B and UV-A rays.) -Wear sunglasses to protect your eyes. -Use a lip balm with sunscreen. -Avoid the sun between 10am and 4pm. -Show any changing mole to your health care provider. CARE FOR YOUR SHAVE BIOPSY SITE Please follow these instructions for daily wound care: 1. Wash the area every day with gentle soap and water. 2. Apply a thin layer of Vaseline or Aquaphor to the wound site to keep the area slightly ?greasy? at all time (this helps to prevent scabbing). Please do not use an old tub of ointment as this can introduce germs into your wound and cause infection. 3. Cover with a bandage and continue this daily process until the wound is healed. Do not leave a soiled or wet bandage on the wound. -Keep the area clean and dry with the bandage in place the day of surgery. -If you experience any bleeding, please apply pressure to the area for approximately 10 minutes. -You may shower, but do not soak in a bathtub, hot tub, pool, alegre, etc until after the wound has healed. -DO NOT USE NEOSPORIN OR BACITRACIN as there is a fairly high incidence of allergic response to these products. -You may experience some mild discomfort, redness, swelling, and/or a clear discharge from the wound after your procedure. Severe pain, worsening swelling, and foul-smelling discharge from the site are NOT to be expected. If you have concerns about how your wounds are healing, please send your provider a IPLogic message or call . Allergies As of Date: 12/08/2024 (No Known Allergies) Date Reviewed: 12/08/2024 Reviewed by: Anna Parks APRN.LOAD OUT WORKER - Fully Assessed Reason for Visit: Full Body Skin Check [1445] Primary Visit Diagnosis:Skin exam, screening for cancer [Z12.83] Other Visit Diagnoses:Neoplasm of unspecified behavior of bone, soft tissue, and skin [D49.2] Allergic contact dermatitis, unspecified trigger [L23.9] EIC (epidermal inclusion cyst) [L72.0] Multiple benign nevi [D22.9] Seborrheic keratosis [L82.1] Lentigines [L81.4] Murphy angioma [D18.01] Order(s):SKIN / NAIL BIOPSY [6981640] Order #: [id number]: 1 SURGICAL PATHOLOGY [DCP7408] Order #: [id number] STANDING SURGICAL PATHOLOGY [JBN9418] Order #: [id number] triamcinolone acetonide (KENALOG) 0.1 % creamApply to affected areas twice daily as needed for up to 3 weeks per month. Avoid face, armpits, and groin.Disp: 30 gRfl: 3 Prescriptions as of 12/08/2024 - triamcinolone acetonide (KENALOG) 0.1 % cream Apply to affected areas twice daily as needed for up to 3 weeks per month. Avoid face, armpits, and groin. - TIADYLT ER 120 mg 24 hr capsule Take 1 capsule by mouth once daily. - sulfaSALAzine (AZULFIDINE) 500 mg tablet Take 500mg every morning AND 1000mg every evening - traZODone (DESYREL) 50 mg tablet Take 0.5 tablets by mouth daily at bedtime. - benzonatate (TESSALON PERLE) 100 mg capsule Take 1 capsule by mouth three times a day as needed. - gabapentin (NEURONTIN) 400 mg capsule Take 2 capsule 60-90 minutes before bedtime. - acetaminophen (TYLENOL ARTHRITIS PAIN) 650 mg CR tablet Take 1,300 mg by mouth once daily. - levothyroxine (SYNTHROID) 25 mcg tablet Take 1 tablet by mouth once daily. - rosuvastatin (CRESTOR) 5 mg tablet Take 1 tablet by mouth every Saturday, Saturday, and Saturday. - hydroCHLOROthiazide 25 mg tablet Take 1 tablet by mouth every afternoon. - colestipol (COLESTID) 1 gram tablet Take 1-2 tablets by mouth once daily. As directed - diclofenac (VOLTAREN ARTHRITIS PAIN) 1 % topical gel Apply 2 g to affected area four times daily as needed (wrist pain). - BIPAP - losartan (COZAAR) 100 mg tablet Take 100 mg by mouth once daily. - aspirin 81 mg chewable tablet Take 81 mg by mouth once daily. - ubidecarenone Q-10 (COENZYME Q-10) 10 mg cap Take 100 mg by mouth two times a day. - hyperimmune colostrum, bovine 200 mg tab Take 2 tablets by mouth twice daily. - Ca/D3/mag ox/zinc/coping machine assembler/nicholas/bor (CALCIUM 600-D3 PLUS, MAG-ZINC, ORAL) - turmeric/turmeric ext/pepr ext (TURMERIC-TURMERIC EXT-PEPPER) 900-100-5 mg cap - CPAP Bipap 17/13 cm H2O, Heat Humidity, suitable mask, [employer] supplies, opt Chinstrap, G47.33. - cholecalciferol (VITAMIN D3) 2,000 unit tablet Take 2,000 Units by mouth once daily. - FLUoxetine HCl (PROZAC) 40 mg capsule Take 1 capsule by mouth once daily. (Dr. Garcia) - CYANOCOBALAMIN, VITAMIN B-12, (VITAMIN B-12 ORAL) Take by mouth. - buPROPion XL (WELLBUTRIN XL) 150 mg 24 hr tablet Take one(1) tablet daily. - Biotin (NAIL-EX) 2,500 mcg ORAL Tab Take 1,000 mcg by mouth once daily. - DAILY VITAMIN TAB Take one(1) tablet daily. Problem List As Of Date 12/08/2024 Noted Resolved Fibromyalgia [M79.7] DYSTHYMIC DISORDER [F34.1] Palpitations [R00.2] 11/23/2006 01/29/2014 Dyslipidemia [E78.5] 11/25/2006 Osteopenia [M85.80] 12/14/2010 Arthrosis [M19.90] 12/14/2010 Dysmetabolic syndrome [E88.810] 10/07/2012 Obstructive sleep apnea treated with bilevel po*09/09/2013 Insomnia [G47.00] 09/09/2013 Elevated antinuclear antibody (KELTON) [...] 07/25/2022 CAD (coronary artery disease) [I25.10] 07/25/2022 Depression, recurrent (HCC) [F33.9] 12/16/2022 Intermittent claudication (HCC) [I73.9] 12/16/2022 Acute back pain with sciatica, left [M54.42] 02/07/2023 Lumbar radiculopathy [M54.16] 02/25/2024 Other instructions from your clinician: GENERAL SUN SAFETY Thank you for allowing me to examine you for signs of skin cancer today. We had an opportunity to discuss my findings and any treatments I recommended. I believe that there are several steps that a person can do to help prevent skin cancers and to detect them at an early, treatable stage: 1. I highly recommend that once a month you perform your own complete skin check looking for changing or unusual spots. Use a wall-mounted mirror and a hand mirror to assist in seeing body areas that are difficult to see otherwise. If you have a family member that can assist, this is often helpful. Additional information can be obtained at: www.skincancer.org/nzdj-jkinug-htobdcrzrxh/early-detection 2. In many cases, skin cancer can be prevented. The best way to protect yourself is to avoid too much sun and sunburns. Health care providers believe that ultraviolet rays (UV rays) from the sun damage the skin and over time lead to skin cancer. Here are ways to protect yourself: -Don't spend long periods of time in direct sunlight. -Wear hats with brims to protect your face and ears. -Wear long-sleeved shirts and pants to protect your arms and legs. -Use broad spectrum sunscreens with a SPF (skin protection factor) of 30 or higher that protect against burning and tanning rays. Apply the lotion 30 minutes before you go outside. (Broad-spectrum sunscreens protect against UV-B and UV-A rays.) -Wear sunglasses to protect your eyes. -Use a lip balm with sunscreen. -Avoid the sun between 10am and 4pm. -Show any changing mole to your health care provider. CARE FOR YOUR SHAVE BIOPSY SITE Please follow these instructions for daily wound care: 1. Wash the area every day with gentle soap and water. 2. Apply a thin layer of Vaseline or Aquaphor to the wound site to keep the area slightly ?greasy? at all time (this helps to prevent scabbing). Please do not use an old tub of ointment as this can introduce germs into your wound and cause infection. 3. Cover with a bandage and continue this daily process until the wound is healed. Do not leave a soiled or wet bandage on the wound. -Keep the area clean and dry with the bandage in place the day of surgery. -If you experience any bleeding, please apply pressure to the area for approximately 10 minutes. -You may shower, but do not soak in a bathtub, hot tub, pool, alegre, etc until after the wound has healed. -DO NOT USE NEOSPORIN OR BACITRACIN as there is a fairly high incidence of allergic response to these products. -You may experience some mild discomfort, redness, swelling, and/or a clear discharge from the wound after your procedure. Severe pain, worsening swelling, and foul-smelling discharge from the site are NOT to be expected. If you have concerns about how your wounds are healing, please send your provider a IPLogic message or call . Prescriptions ordered this encounter Disp Refills Start End TRIAMCINOLONE ACETONIDE 0.1 % TOPICA* 30 g 3 12/08/2024 Sig: Apply to affected areas twice daily as needed for up to 3 weeks per month. Avoid face, armpits, and groin. Disposition: Return for pending biopsy results. Follow-up and Disposition History for Encounter Date Provider Department Center 12/08/2024 [id number], MACKENZCarlottaRANDI Liz [facility] Encounter Status:Closed by ANNA PARKS on 12/08/24 PROGRESS Observed: 12/08/2024 9:58 AM Status: COMPLETED Source: [facility] HNO ID: [id number] Author: ANNA PARKS APRN.LOAD OUT WORKER Service: ? Author Type: Nurse Practitioner Type: Progress Notes Filed: 12/08/2024 10:41 Note Text: NEW PATIENT Chief Complaint: Full Body Skin Check History of Present Ilness: Priscilla Ramos is a 69 year old female who presents today for a full body skin examination. 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 No Pertinent Family medical history: History of melanoma: No History of non melanoma skin cancer: No Other family history (autoimmune, dermatologic, etc): None Past Medical History is reviewed. Medication List is reviewed. ROS: Skin as above. Physical Exam: Carvalho skin type: II The patient is a pleasant female in no apparent distress. Alert and oriented x 3. A skin exam performed of the Scalp, face, ears, neck, chest, back, abdomen, bilateral upper extremities, bilateral lower extremities, buttocks, hands, feet, nails and hair is significant for: Generalized Regular and symmetric hyperpigmented macules and papules throughout with regular pigment network under dermoscopy Generalized Stuck-on verrucous, variably pigmented papules and plaques throughout Generalized Densely scattered light weiner macules noted on all sun exposed areas Generalized Small murphy red papules throughout Left Medial Thigh 0.8 x 0.6 cm erythematous keratotic papule, R/O VV vs SCC Right Forearm - Anterior Erythematous confluent scaly papules Left Inframammary Fold, Right Postauricular Area Cystic nodules with central punctum Assessment and Plan: SKIN EXAM, SCREENING FOR CANCER Generalized Advised sun protection with broad-spectrum SPF 30+, wide brim hats, sun glasses, protective clothing, and seeking shade during the peak hours of sun 10am-4pm Return for regular skin checks as discussed NEOPLASM OF UNSPECIFIED BEHAVIOR OF BONE, SOFT TISSUE, AND SKIN Left Medial Thigh - SKIN / NAIL BIOPSY Type of biopsy: tangential Informed consent: discussed and consent obtained Timeout: patient name, date of , surgical site, and procedure verified Anesthesia: the lesion was anesthetized in a standard fashion Anesthetic: 1% lidocaine w/ epinephrine 1-100,000 local infiltration Instrument used: DermaBlade Hemostasis achieved with: aluminum chloride Outcome: patient tolerated procedure well Post-procedure details: sterile dressing applied and wound care instructions given Dressing type: bandage and petrolatum Specimen A - Surgical Pathology ALLERGIC CONTACT DERMATITIS, UNSPECIFIED TRIGGER Right Forearm - Anterior Discussed elimination of exacerbating factors, religious of the skin barrier function and hydration of the skin Recommend liberal use of fragrance free skin care/gentle emollients such as vanicream, cetaphil, cerave Start triamcinolone 0.1% cream BID as needed for up to 21 days per month Discussed risk/benefits/alterations including possible side effects - skin thinning, striae, and alterations in skin pigmentation - triamcinolone acetonide (KENALOG) 0.1 % cream - Right Forearm - Anterior - Apply to affected areas twice daily as needed for up to 3 weeks per month. Avoid face, armpits, and groin. EIC (EPIDERMAL INCLUSION CYST) (2) Left Inframammary Fold, Right Postauricular Area Educated and reassured on benign nature Discussed treatment options including observation vs surgical excision along with risks, benefits, and alternatives of each Patient declines treatment at this time, would like to continue to observe MULTIPLE BENIGN NEVI Generalized Reassured and educated on benign nature of lesions. Sunblock/sunscreen protection reviewed. Recommend observation and encouraged to notify office of changes. SEBORRHEIC KERATOSIS Generalized Reassured and educated on benign nature of lesions. LENTIGINES Generalized Reassured and educated on benign nature of lesions. Sunblock/sunscreen protection reviewed. Recommend observation and encouraged to notify office of changes. MURPHY ANGIOMA Generalized Reassured and educated on benign nature of lesions. Sunscreen and sun protection reviewed. Should any areas change in size, shape or color, bleed or become tender, the patient will contact the office for evaluation sooner than their interval appointment. Follow up: pending pathology and 1 year for Full Body Skin Check UNIVERSAL PROTOCOL / SAFETY CHECKLIST Procedure to be Performed: Shave biopsy x 1 Sign In: A Moment of CARE was completed. Appropriate PPE (Personal Protective Equipment) worn by all providers involved with the procedure. Patient/Surrogate Stated/Verified: Patient name, Date of , Relevant allergies, and The intended procedure Time Out: Relevant labs, photos, and/or imaging studies have been reviewed. Intended patient and procedure match the source document(s) (e.g. consent, HANDP, associated studies [imaging, pathology]) match the intended patient and procedure. Correct side/site has been marked and visible. Medications required for this procedure are verified. Sign Out: Specimens are all correctly labeled and sent. All instruments, equipment, possible retained foreign bodies are accounted for. Yes. The post-procedure plan of care has been communicated to the patient or surrogate. Intake completed by Faye Soriano LPN The documentation for this note was completed by Autumn Black LPN acting as scribe for Anna Parks APRN.CNP. I agree with the Chief Complaint, ROS, and Past Histories independently gathered by the clinical direct support professional home health and the remaining scribed note accurately describes my personal service to the patient. LISET DoughertyOV Observed: 12/07/2024 1:30 PM Status: COMPLETED Source: [facility] Office Visit (RHERODERICK) PRISCILLA RAMOS ([id number]) 1955 F Date Time Provider Department 12/07/24 1:30 PM PRINCE WEST During your visit today, we recorded the following information about you: Temperature Pulse Blood pressure Weight 97.9 degrees 81/minute 119/74 122 kg Height 1.651 m Prince West APRN.CNP 12/07/2024 1:22 PM Signed Labs are due 01/29/2025 and every 3 months Prince West, KEENAN.LOAD OUT WORKER 12/07/2024 1:52 PM Signed Follow-up [facility] Rheumatology appointment for inflammatory arthritis. HPI: To review, Priscilla [...] was seeing spine. - After August visit, AJ explained for which she wanted more time to consider - Feb US with minimal active synovitis of various bilateral hand joints - at [facility], reports she has had some bad times with the arthritis. Not in a bad place right now. 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 She started SSZ after the TEX. She tolerates it well. She reports at least 50% improvement of her joint symptoms. No falls or fractures since the TEX Pain is not worse any certain time of day. Pain worsens with activity. She takes tylenol arthritis for pain. Sites of pain: intermittent to L knee (due to OA) and low back with increased activity, pain rated 3/10 Joint swelling: mild to ankles EMS: yes, lasting 60 minutes She reports recent URI, s/p antibiotics. Tolerating meds. Answers submitted by the patient for this visit: Review of Systems Rheumatology (Submitted on 12/06/2024) Fever : No Recent unintentional weight change: No Eye pain: No Eye redness: No Vision Disturbance: No Eye Dryness: No Nosebleeds: No Sores in your mouth: No Trouble Swallowing: No Dry Mouth: No Chest pain: No Leg Swelling: No A cough: No Shortness of breath: Yes Pain with breathing: No Heartburn: No Abdominal pain: No Diarrhea: No Black tarry stools: No Blood in urine: No Pain or burning with urination: No Joint pain or stiffness: Yes Muscle weakness: No Muscle aches: No Joint swelling: No Morning Stiffness in Joints: Yes A rash: Yes Do you have sun sensitive rashes?: No Skin Color Changes: No Hair Loss: No Nail Changes: No Headaches: No Numbness: No Memory Loss: No Swollen Glands: No Current Outpatient Medications Medication Sig traZODone (DESYREL) 50 mg tablet Take 0.5 tablets by mouth daily at bedtime. sulfaSALAzine (AZULFIDINE) 500 mg tablet Take 500mg every morning AND 1000mg every evening benzonatate (TESSALON PERLE) 100 [...] 2 tablets by mouth twice daily. Ca/D3/mag ox/zinc/coping machine assembler/nicholas/bor (CALCIUM 600-D3 PLUS, MAG-ZINC, ORAL) turmeric/turmeric ext/pepr [...] No Family History SOCIAL HISTORY: Lives in [place]. 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 CONSTITUTIONAL: Well-appearing, in NAD. SKIN: No rash. No sclerodactyly, calcinosis, telangiectasias, digital ulcers, or skin thickening. EYES: No scleral icterus or conjunctivitis ENT and Mouth: External ears normal. RESPIRATORY: Normal breath sounds, clear to auscultation. CARDIOVASCULAR: Regular rate and rhythm, no murmurs or rubs EXTREMITIES/LYMPH: + b/l lower extremity edema NEURO: Awake, alert and oriented, uses cane for ambulation MUSCULOSKELETAL: JOINT APPEARANCE: No erythema or warmth of any upper or lower extremity joint. RANGE OF MOTION: she is not able to make a complete fist with the R hand SWOLLEN JOINTS/SYNOVITIS: No synovitis of any joint. TENDER JOINTS: L cmc joint No tenderness to spine *Nov Widespread Pain Index: 15 (0-19) Symptoms Severity Scale: 7 (0-12) WPI>7 and SS Scale>5 OR WPI 3-6 and SS Scale >9 consistent with fibromyalgia Labs reviewed and discussed with the patient: Latest Ref Rng 11/12/2024 Vitamin D 25 Hydroxy 31.0 - 80.0 ng/mL 36.0 Latest Ref Rng 10/29/2024 WBC 3.70 - 11.00 k/uL 6.03 RBC 3.90 - 5.20 m/uL 4.59 Hemoglobin 11.5 - 15.5 g/dL 14.4 Hematocrit 36.0 - 46.0 % 43.0 MCV 80.0 - 100.0 fL 93.7 MCH 26.0 - 34.0 pg 31.4 MCHC 30.5 - 36.0 g/dL 33.5 RDW-CV 11.5 - 15.0 % 14.3 Platelet Count 150 - 400 k/uL 292 MPV 9.0 - 12.7 fL 9.1 Absolute nRBC <0.01 k/uL <0.01 Creatinine 0.58 - 0.96 mg/dL 0.61 eGFR >=60 mL/min/1.73m? 96 ALT 7 - 38 U/L 21 AST 13 - 35 U/L 21 *October nl quant gold, hep b/c Latest Ref Rng 11/15/2023 06/10/2024 CCP Antibody IgG Qualitative Negative Negative CCP Antibody, IgG <20 Units <15 Rheumatoid Factor <16 IU/mL 26 (H) 26 (H) Component Latest Ref Rng AND Units 08/21/2014 KELTON Negative Positive (A) KELTON Titer Negative 1:80 (A) KELTON Pattern Speckled STUDIES: 02/2024 DEXA: IMPRESSION: THE LOWEST T-SCORE IS -1.3 IN THE LEFT HIP 1) DIAGNOSIS (based on BMD alone): OSTEOPENIA Caution: Medical conditions other than osteoporosis may cause low bone density, such as osteomalacia or renal osteodystrophy. Clinical correlation is necessary. 2) FRACTURE RISK (based on FRAX): 10-year [...] 2021: 0.893 g/cm2 No statistically significant change *Feb US wrists/hands- Minimal active synovitis involving [...] in September aside from increased shoulder pain. Improved on SSZ. - continue SSZ 1.5g/day. She declines increasing the dose. Potential side effects were explained including rash, GI upset, bone marrow suppression, and liver toxicity requiring routine lab monitoring. - Check labs q 3 months, next due 01/2025. Notify of results via [facility] 2. Generalized osteoarthritis: Hands, spine, knee s/p [...] L femoral neck, with increase to R hip, otherwise stable - she continues to defer tx - Ca/vit D - next DEXA due 02/2026 6. General health maintenance: - Completed the covid vaccination series in July, moderna - Advised to continue follow-up with PCP for routine health maintenance and malignancy screening Follow-up in 7 months, or sooner if needed Thank you for allowing me to participate in the care of your patient. Medical Decision Making: Problems: Moderate: 2+ stable chronic illnesses Data: Unique test result(s) reviewed: 3+ Unique test(s) ordered: 3+ Independent interpretation of test from other physician/QHCP Risk: High: Drug therapy requiring intensive monitoring Medical Decision Making Level: 5 - High Pirnce West APRN.LOAD OUT WORKER Allergies As of Date: 12/07/2024 (No Known Allergies) Date Reviewed: 12/07/2024 Reviewed by: Prince West APRN.LOAD OUT WORKER - Fully Assessed Reason for Visit: Established Patient [175] Primary Visit Diagnosis:Seropositive rheumatoid arthritis (HCC) [M05.9] Other Visit Diagnoses:Osteoarthritis of multiple joints, unspecified osteoarthritis type [M15.9] Fibromyalgia [M79.7] Osteoporosis, post menopausal [M81.0] Encounter for long-term (current) use of medications [Z79.899] Order(s):COMPLETE BLOOD COUNT AND DIFFERENTIAL [SQCBCDIF] Order #: [id number] STANDING ASPARTATE AMINOTRANSFERASE/SGOT [SQAST] Order #: [id number] STANDING ALANINE AMINOTRANSFERASE / SGPT [SQALT] Order #: [id number] STANDING CREATININE BLD [SQCRET] Order #: [id number] STANDING sulfaSALAzine (AZULFIDINE) 500 mg tabletTake 500mg every morning AND 1000mg every eveningDisp: 270 tabletRfl: 0 Prescriptions as of 12/07/2024 - TIADYLT ER 120 mg 24 hr capsule Take 1 capsule by mouth once daily. - sulfaSALAzine (AZULFIDINE) 500 mg tablet Take 500mg every morning AND 1000mg every evening - traZODone (DESYREL) 50 mg tablet Take 0.5 tablets by mouth daily at bedtime. - benzonatate (TESSALON PERLE) 100 mg capsule Take 1 capsule by mouth three times a day as needed. - gabapentin (NEURONTIN) 400 mg capsule Take 2 capsule 60-90 minutes before bedtime. - acetaminophen (TYLENOL ARTHRITIS PAIN) 650 mg CR tablet Take 1,300 mg by mouth once daily. - levothyroxine (SYNTHROID) 25 mcg tablet Take 1 tablet by mouth once daily. - rosuvastatin (CRESTOR) 5 mg tablet Take 1 tablet by mouth every Saturday, Saturday, and Saturday. - hydroCHLOROthiazide 25 mg tablet Take 1 tablet by mouth every afternoon. - colestipol (COLESTID) 1 gram tablet Take 1-2 tablets by mouth once daily. As directed - diclofenac (VOLTAREN ARTHRITIS PAIN) 1 % topical gel Apply 2 g to affected area four times daily as needed (wrist pain). - BIPAP - losartan (COZAAR) 100 mg tablet Take 100 mg by mouth once daily. - aspirin 81 mg chewable tablet Take 81 mg by mouth once daily. - ubidecarenone Q-10 (COENZYME Q-10) 10 mg cap Take 100 mg by mouth two times a day. - hyperimmune colostrum, bovine 200 mg tab Take 2 tablets by mouth twice daily. - Ca/D3/mag ox/zinc/coping machine assembler/nicholas/bor (CALCIUM 600-D3 PLUS, MAG-ZINC, ORAL) - turmeric/turmeric ext/pepr ext (TURMERIC-TURMERIC EXT-PEPPER) 900-100-5 mg cap - CPAP Bipap 17/13 cm H2O, Heat Humidity, suitable mask, Lifetime supplies, opt Chinstrap, G47.33. - cholecalciferol (VITAMIN D3) 2,000 unit tablet Take 2,000 Units by mouth once daily. - FLUoxetine HCl (PROZAC) 40 mg capsule Take 1 capsule by mouth once daily. (Dr. Garcia) - CYANOCOBALAMIN, VITAMIN B-12, (VITAMIN B-12 ORAL) Take by mouth. - buPROPion XL (WELLBUTRIN XL) 150 mg 24 hr tablet Take one(1) tablet daily. - Biotin (NAIL-EX) 2,500 mcg ORAL Tab Take 1,000 mcg by mouth once daily. - DAILY VITAMIN TAB Take one(1) tablet daily. Problem List As Of Date 12/07/2024 Noted Resolved Fibromyalgia [M79.7] DYSTHYMIC DISORDER [F34.1] Palpitations [R00.2] 11/23/2006 01/29/2014 Dyslipidemia [E78.5] 11/25/2006 Osteopenia [M85.80] 12/14/2010 Arthrosis [M19.90] 12/14/2010 Dysmetabolic syndrome [E88.810] 10/07/2012 Obstructive sleep apnea treated with bilevel po*09/09/2013 Insomnia [G47.00] 09/09/2013 Elevated antinuclear antibody (KELTON) [...] 07/25/2022 CAD (coronary artery disease) [I25.10] 07/25/2022 Depression, recurrent (HCC) [F33.9] 12/16/2022 Intermittent claudication (HCC) [I73.9] 12/16/2022 Acute back pain with sciatica, left [M54.42] 02/07/2023 Lumbar radiculopathy [M54.16] 02/25/2024 Other instructions from your clinician: Labs are due 01/29/2025 and every 3 months Prescriptions ordered this encounter Disp Refills Start End SULFASALAZINE 500 MG TABLET 270 * 0 12/07/2024 Sig: Take 500mg every morning AND 1000mg every evening Medications Discontinued During This Encounter Prescriptions - sulfaSALAzine (AZULFIDINE) 500 mg tablet (Discontinued) Take 500mg every morning AND 1000mg every evening Disposition: Return in about 7 months (around 07/07/2025). Follow-up and Disposition History for Encounter Date Provider Department Center 12/07/2024 [id number] Letter Text Encounter Status:Closed by PRINCE WEST on 12/07/24 PROGRESS Observed: 12/07/2024 1:30 PM Status: COMPLETED Source: [facility] HNO ID: [id number] Author: PRINCE WEST APRN.LOAD OUT WORKER Service: ? Author Type: Nurse Practitioner Type: Progress Notes Filed: 12/07/2024 13:52 Note Text: Follow-up [facility] Rheumatology appointment for inflammatory arthritis. HPI: To review, Priscilla [...] synovitis of various bilateral hand joints - at [facility], reports she has had some bad times with the arthritis. Not in a bad place right now. 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 She started SSZ after the TEX. She tolerates it well. She reports at least 50% improvement of her joint symptoms. No falls or fractures since the TEX Pain is not worse any certain time of day. Pain worsens with activity. She takes tylenol arthritis for pain. Sites of pain: intermittent to L knee (due to OA) and low back with increased activity, pain rated 3/10 Joint swelling: mild to ankles EMS: yes, lasting 60 minutes She reports recent URI, s/p antibiotics. Tolerating meds. Answers submitted by the patient for this visit: Review of Systems Rheumatology (Submitted on 12/06/2024) Fever : No Recent unintentional weight change: No Eye pain: No Eye redness: No Vision Disturbance: No Eye Dryness: No Nosebleeds: No Sores in your mouth: No Trouble Swallowing: No Dry Mouth: No Chest pain: No Leg Swelling: No A cough: No Shortness of breath: Yes Pain with breathing: No Heartburn: No Abdominal pain: No Diarrhea: No Black tarry stools: No Blood in urine: No Pain or burning with urination: No Joint pain or stiffness: Yes Muscle weakness: No Muscle aches: No Joint swelling: No Morning Stiffness in Joints: Yes A rash: Yes Do you have sun sensitive rashes?: No Skin Color Changes: No Hair Loss: No Nail Changes: No Headaches: No Numbness: No Memory Loss: No Swollen Glands: No Current Outpatient Medications Medication Sig traZODone (DESYREL) 50 mg tablet Take 0.5 tablets by mouth daily at bedtime. sulfaSALAzine (AZULFIDINE) 500 mg tablet Take 500mg every morning AND 1000mg every evening benzonatate (TESSALON PERLE) 100 [...] 2 tablets by mouth twice daily. Ca/D3/mag ox/zinc/coping machine assembler/nicholas/bor (CALCIUM 600-D3 PLUS, MAG-ZINC, ORAL) turmeric/turmeric ext/pepr [...] No Family History SOCIAL HISTORY: Lives in [place]. 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 CONSTITUTIONAL: Well-appearing, in NAD. SKIN: No rash. No sclerodactyly, calcinosis, telangiectasias, digital ulcers, or skin thickening. EYES: No scleral icterus or conjunctivitis ENT and Mouth: External ears normal. RESPIRATORY: Normal breath sounds, clear to auscultation. CARDIOVASCULAR: Regular rate and rhythm, no murmurs or rubs EXTREMITIES/LYMPH: + b/l lower extremity edema NEURO: Awake, alert and oriented, uses cane for ambulation MUSCULOSKELETAL: JOINT APPEARANCE: No erythema or warmth of any upper or lower extremity joint. RANGE OF MOTION: she is not able to make a complete fist with the R hand SWOLLEN JOINTS/SYNOVITIS: No synovitis of any joint. TENDER JOINTS: L cmc joint No tenderness to spine *Nov Widespread Pain Index: 15 (0-19) Symptoms Severity Scale: 7 (0-12) WPI>7 and SS Scale>5 OR WPI 3-6 and SS Scale >9 consistent with fibromyalgia Labs reviewed and discussed with the patient: Latest Ref Rng 11/12/2024 Vitamin D 25 Hydroxy 31.0 - 80.0 ng/mL 36.0 Latest Ref Rng 10/29/2024 WBC 3.70 - 11.00 k/uL 6.03 RBC 3.90 - 5.20 m/uL 4.59 Hemoglobin 11.5 - 15.5 g/dL 14.4 Hematocrit 36.0 - 46.0 % 43.0 MCV 80.0 - 100.0 fL 93.7 MCH 26.0 - 34.0 pg 31.4 MCHC 30.5 - 36.0 g/dL 33.5 RDW-CV 11.5 - 15.0 % 14.3 Platelet Count 150 - 400 k/uL 292 MPV 9.0 - 12.7 fL 9.1 Absolute nRBC <0.01 k/uL <0.01 Creatinine 0.58 - 0.96 mg/dL 0.61 eGFR >=60 mL/min/1.73m? 96 ALT 7 - 38 U/L 21 AST 13 - 35 U/L *October nl quant gold, hep b/c Latest Ref Rng 11/15/2023 06/10/2024 CCP Antibody IgG Qualitative Negative Negative CCP Antibody, IgG <20 Units <15 Rheumatoid Factor <16 IU/mL 26 (H) 26 (H) Component Latest Ref Rng AND Units 08/21/2014 KELTON Negative Positive (A) KELTON Titer Negative 1:80 (A) KELTON Pattern Speckled STUDIES: 02/2024 DEXA: IMPRESSION: THE LOWEST T-SCORE IS -1.3 IN THE LEFT HIP 1) DIAGNOSIS (based on BMD alone): OSTEOPENIA Caution: Medical conditions other than osteoporosis may cause low bone density, such as osteomalacia or renal osteodystrophy. Clinical correlation is necessary. 2) FRACTURE RISK (based on FRAX): 10-year [...] 2021: 0.893 g/cm2 No statistically significant change *Feb US wrists/hands- Minimal active synovitis involving [...] in September aside from increased shoulder pain. Improved on SSZ. - continue SSZ 1.5g/day. She declines increasing the dose. Potential side effects were explained including rash, GI upset, bone marrow suppression, and liver toxicity requiring routine lab monitoring. - Check labs q 3 months, next due 01/2025. Notify of results via [facility] 2. Generalized osteoarthritis: Hands, spine, knee s/p [...] L femoral neck, with increase to R hip, otherwise stable - she continues to defer tx - Ca/vit D - next DEXA due 02/2026 6. General health maintenance: - Completed the covid vaccination series in July, moderna - Advised to continue follow-up with PCP for routine health maintenance and malignancy screening Follow-up in 7 months, or sooner if needed Thank you for allowing me to participate in the care of your patient. Medical Decision Making: Problems: Moderate: 2+ stable chronic illnesses Data: Unique test result(s) reviewed: 3+ Unique test(s) ordered: 3+ Independent interpretation of test from other physician/QHCP Risk: High: Drug therapy requiring intensive monitoring Medical Decision Making Level: 5 - High Prince West APRN.ISAURO PROGRESS Observed: 11/26/2024 1:20 PM Status: COMPLETED Source: [facility] HNO ID: [id number] Author: JESUS PERALTA APRN.LOAD OUT WORKER Service: ? Author Type: Nurse Practitioner Type: Progress Notes Filed: 11/26/2024 13:22 Note Text: Subjective Priscilla Ramos is a 69 year old female. HPI Patient presents today complaining of 2 weeks of cough along with sinus pressure and drainage and chest congestion. Denies any fever sore throat or earache. She did test at home for COVID which was negative. Review of Systems As above Objective BP 147/83 Pulse 100 Temp 36.5 ?C (97.7 ?F) Resp 20 Wt 124.1 kg (273 lb 9.5 oz) SpO2 95% BMI 46.42 kg/m? Physical Exam Vitals and nursing note reviewed. Constitutional: General: She is not in acute distress. Appearance: Normal appearance. She is not ill-appearing. HENT: Head: Normocephalic. Mouth/Throat: Mouth: Mucous membranes are moist. Eyes: Conjunctiva/sclera: Conjunctivae normal. Cardiovascular: Rate and Rhythm: Normal rate. Rhythm irregular. Pulmonary: Effort: Pulmonary effort is normal. Breath sounds: Normal breath sounds. Musculoskeletal: General: Normal range of motion. Cervical back: Normal range of motion. Skin: General: Skin is warm and dry. Neurological: General: No focal deficit present. Mental Status: She is alert. Psychiatric: Mood and Affect: Mood normal. Behavior: Behavior normal. ASSESSMENT/PLAN: 1. Lower respiratory infection - ICD9: 519.8, ICD10: J22 -As patient has had 2 weeks of ongoing and worsening symptoms patient will be started on doxycycline as noted below. Did discuss viral testing but patient has already tested negative for COVID at home. We did discuss possible chest x-ray however as patient will be treated regardless was not felt it was necessary at this time. Patient did have a mildly irregular heartbeat which is known to patient. Patient will otherwise follow-up with PCP if symptoms not improving - DOXYCYCLINE MONOHYDRATE 100 MG CAPSULE LISET Botello Observed: 11/26/2024 1:15 PM Status: COMPLETED Source: [facility] Office Visit ([facility]) PRISCILLA RAMOS ([id number]) 1955 F Date Time Provider Department 11/26/24 1:15 PM JESUS PERALTA During your visit today, we recorded the following information about you: Temperature Pulse Respiration Blood pressure 97.7 degrees 100/minute 20/minute 147/83 Weight 124.1 kg Jesus Peralta APRN.CNP 11/26/2024 1:22 PM Signed Subjective Priscilla Ramos is a 69 year old female. HPI Patient presents today complaining of 2 weeks of cough along with sinus pressure and drainage and chest congestion. Denies any fever sore throat or earache. She did test at home for COVID which was negative. Review of Systems As above Objective BP 147/83 Pulse 100 Temp 36.5 ?C (97.7 ?F) Resp 20 Wt 124.1 kg (273 lb 9.5 oz) SpO2 95% BMI 46.42 kg/m? Physical Exam Vitals and nursing note reviewed. Constitutional: General: She is not in acute distress. Appearance: Normal appearance. She is not ill-appearing. HENT: Head: Normocephalic. Mouth/Throat: Mouth: Mucous membranes are moist. Eyes: Conjunctiva/sclera: Conjunctivae normal. Cardiovascular: Rate and Rhythm: Normal rate. Rhythm irregular. Pulmonary: Effort: Pulmonary effort is normal. Breath sounds: Normal breath sounds. Musculoskeletal: General: Normal range of motion. Cervical back: Normal range of motion. Skin: General: Skin is warm and dry. Neurological: General: No focal deficit present. Mental Status: She is alert. Psychiatric: Mood and Affect: Mood normal. Behavior: Behavior normal. ASSESSMENT/PLAN: 1. Lower respiratory infection - ICD9: 519.8, ICD10: J22 -As patient has had 2 weeks of ongoing and worsening symptoms patient will be started on doxycycline as noted below. Did discuss viral testing but patient has already tested negative for COVID at home. We did discuss possible chest x-ray however as patient will be treated regardless was not felt it was necessary at this time. Patient did have a mildly irregular heartbeat which is known to patient. Patient will otherwise follow-up with PCP if symptoms not improving - DOXYCYCLINE MONOHYDRATE 100 MG CAPSULE Jesus Peralta APRN.CNP Allergies As of Date: 11/26/2024 (No Known Allergies) Date Reviewed: 11/26/2024 Reviewed by: Jesus Peralta APRN.LOAD OUT WORKER - Fully Assessed Reason for Visit: Cough [28] Cmt: Chest congestion, runny nose x2 weeks Primary Visit Diagnosis:Lower respiratory infection [J22] Order(s):doxycycline monohydrate (MONODOX) 100 mg capsuleTake 1 capsule by mouth two times a day for 5 days.Disp: 10 capsuleRfl: 0 Prescriptions as of 11/26/2024 - doxycycline monohydrate (MONODOX) 100 mg capsule Take 1 capsule by mouth two times a day for 5 days. - traZODone (DESYREL) 50 mg tablet Take 0.5 tablets by mouth daily at bedtime. - sulfaSALAzine (AZULFIDINE) 500 mg tablet Take 500mg every morning AND 1000mg every evening - benzonatate (TESSALON PERLE) 100 mg capsule Take 1 capsule by mouth three times a day as needed. - gabapentin (NEURONTIN) 400 mg capsule Take 2 capsule 60-90 minutes before bedtime. - acetaminophen (TYLENOL ARTHRITIS PAIN) 650 mg CR tablet Take 1,300 mg by mouth once daily. - levothyroxine (SYNTHROID) 25 mcg tablet Take 1 tablet by mouth once daily. - rosuvastatin (CRESTOR) 5 mg tablet Take 1 tablet by mouth every Saturday, Saturday, and Saturday. - hydroCHLOROthiazide 25 mg tablet Take 1 tablet by mouth every afternoon. - colestipol (COLESTID) 1 gram tablet Take 1-2 tablets by mouth once daily. As directed - diclofenac (VOLTAREN ARTHRITIS PAIN) 1 % topical gel Apply 2 g to affected area four times daily as needed (wrist pain). - BIPAP - losartan (COZAAR) 100 mg tablet Take 100 mg by mouth once daily. - aspirin 81 mg chewable tablet Take 81 mg by mouth once daily. - ubidecarenone Q-10 (COENZYME Q-10) 10 mg cap Take 100 mg by mouth two times a day. - hyperimmune colostrum, bovine 200 mg tab Take 2 tablets by mouth twice daily. - Ca/D3/mag ox/zinc/coping machine assembler/nicholas/bor (CALCIUM 600-D3 PLUS, MAG-ZINC, ORAL) - turmeric/turmeric ext/pepr ext (TURMERIC-TURMERIC EXT-PEPPER) 900-100-5 mg cap - CPAP Bipap 17/13 cm H2O, Heat Humidity, suitable mask, [employer] supplies, opt Chinstrap, G47.33. - cholecalciferol (VITAMIN D3) 2,000 unit tablet Take 2,000 Units by mouth once daily. - FLUoxetine HCl (PROZAC) 40 mg capsule Take 1 capsule by mouth once daily. (Dr. Garcia) - CYANOCOBALAMIN, VITAMIN B-12, (VITAMIN B-12 ORAL) Take by mouth. - buPROPion XL (WELLBUTRIN XL) 150 mg 24 hr tablet Take one(1) tablet daily. - Biotin (NAIL-EX) 2,500 mcg ORAL Tab Take 1,000 mcg by mouth once daily. - DAILY VITAMIN TAB Take one(1) tablet daily. Problem List As Of Date 11/26/2024 Noted Resolved Fibromyalgia [M79.7] DYSTHYMIC DISORDER [F34.1] Palpitations [R00.2] 11/23/2006 01/29/2014 Dyslipidemia [E78.5] 11/25/2006 Osteopenia [M85.80] 12/14/2010 Arthrosis [M19.90] 12/14/2010 Dysmetabolic syndrome [E88.810] 10/07/2012 Obstructive sleep apnea treated with bilevel po*09/09/2013 Insomnia [G47.00] 09/09/2013 Elevated antinuclear antibody (KELTON) [...] 07/25/2022 CAD (coronary artery disease) [I25.10] 07/25/2022 Depression, recurrent (HCC) [F33.9] 12/16/2022 Intermittent claudication (HCC) [I73.9] 12/16/2022 Acute back pain with sciatica, left [M54.42] 02/07/2023 Lumbar radiculopathy [M54.16] 02/25/2024 Prescriptions ordered this encounter Disp Refills Start End DOXYCYCLINE MONOHYDRATE 100 MG CAPSU* 10 c* 0 11/26/2024 12/01/2024 Route: PO Sig: Take 1 capsule by mouth two times a day for 5 days. Encounter Status:Closed by JESUS PERALTA on 11/26/24 SIL SCREENING W JOSE Observed: 11:56 AM Status: F Source: [facility] * * *Final Report* * * DATE OF EXAM: Nov 24 2024 11:56AM [facility] [id number] - SIL SCREENING W JOSE / PROCEDURE REASON: Encounter for screening mammogram for breast cancer * * * * Physician Interpretation * * * * RESULT: [address] [address] [place] [address] #[id number] - SIL SCREENING W JOSE HISTORY: 69 year-old patient presents for screening. Patient is asymptomatic in both breasts. Patient states no personal history of breast cancer. COMPARISON STUDIES: The present examination has been compared to prior imaging studies dated 01/23/2019 (mammogram), 04/04/2020 (mammogram), 04/17/2021 (mammogram), 04/11/2022 (mammogram) and 11/15/2023 (mammogram). MAMMOGRAM TECHNIQUE: The study was acquired using full field digital technology and interpreted from soft copy. Digital Breast Tomosynthesis (DBT) images were obtained and used to assist in the interpretation of this examination. MAMMOGRAM FINDINGS: There are scattered areas of fibroglandular density. No suspicious masses, calcifications or other abnormalities are seen in either breast. There are no significant interval changes. Stable biopsy clip right breast. IMPRESSION: There is no mammographic evidence of malignancy in either breast. Routine screening mammogram is recommended. Annual mammogram will be due in 1 year. BI-RADS Category 1: Negative RISK: Based on the Tyrer-Cuzick (TC) risk assessment model, this patient has a 4.3% lifetime risk of developing breast cancer, meaning they are at average risk for developing breast cancer. However, this is only an estimate based on available history provided on the patient's questionnaire. We encourage all patients to talk with their providers about these results, further recommendations for managing breast health, and appropriate supplemental screening options if the patient has dense breast tissue. Interpreting Radiologist: Marlon Aguila M.D. Electronically signed on: 11/25/2024 Fall Internship: [facility] Transcribe Date/Time: Nov 24 2024 11:20A Dictated by: MARLON AGUILA MD This examination was interpreted and the report reviewed and electronically signed by: MARLON AGUILA MD on Nov 25 2024 11:08AM EST [id number] PROGRESS Observed: 11/24/2024 11:30 AM Status: COMPLETED [facility] ID: [id number] Author: ABBEY TOWNSEND [employer] Carlyle Service: ? Author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 12.9 11.5-15.0 % LAB 777-3([facility]) Platelet # Bld Auto 346 150-400 k/uL LAB 78245-5([facility]) PMV Bld Auto 8.6 Low 9.0-12.7 fL LAB 771-6([facility]) nRBC # Bld Auto <0.01 <0.01 k/uL Performed By: #### 18222-5 # ### [facility] CLIA [id number] [address] [place] [address] [place] T3FREE SERPL-MCNC Collected: 09/03/2024 1:29 PM Stat us: F Source: [facility] Order Comment: Specimen Type : BLOOD SPECIMEN Ordering Facility: [facility] Address: [address] [place] [address] TYPE CODE TESTS RESULT OUT OF RANGE REFERENCE UNITS LAB 3051-0([facility]) T3Free SerPl-mCnc 2.6 2.3-4.1 pg/mL Performed By: #### 3051-0, 3 016-3, 3024-7 #### [facility] CLIA [id number] [address] [place] [address] [place] [address] [place] T4 FREE SERPL-MCNC Collected: 09/03/2024 1:29 PM Sta tus: F Source: [facility] [place] [facility] Comment: Specimen Type : BLOOD SPECIMEN Ordering Facility: [facility] Address: [address] [place] [address] TYPE CODE TESTS RESULT OUT OF RANGE REFERENCE UNITS LAB 3024-7(LOINC) T4 Free SerPl-mCnc 1.4 0.9-1.7 ng/dL Performed By: #### 3051-0, 3 016-3, 3024-7 #### [facility] CLIA [id number] [address] [place] [address] [place] TSH SERPL-ACNC Collected: 1:29 PM Status: F Source: [facility] [place] [facility] Comment: Specimen Type : BLOOD SPECIMEN Ordering Facility: [facility] Address: [address] [place] [address] TYPE CODE TESTS RESULT OUT OF RANGE REFERENCE UNITS LAB 3016-3(LOINC) TSH SerPl-aCnc 1.010 0.270-4.200 mIU/L Performed By: #### 3051-0, 3 016-3, 3024-7 #### [facility] CLIA [id number] [address] [place] [address] [place] CREATININE + EGFR PNL SERPLBLD Collecte d: 09/03/2024 1:29 PM Status: F Source: [facility] [place] [facility] Comment: Specimen Type : BLOOD SPECIMEN Ordering Facility: [facility] Address: [address] [place] [address] TYPE CODE TESTS RESULT OUT OF RANGE REFERENCE UNITS LAB 2160-0(LOINC) Creat SerPl-mCnc 0.70 0.58-0.96 mg/dL LAB 96630-3(LOINC) Creatinine + eGFR Pnl SerPlBld 93 >=60 mL/min/1. 73m??? Result Comment: Estimated Gl omerular Filtration Rate (eGFR) is calculated using the 2020 CKD-EPI creatinine equation. This equation utilizes serum creatinine, sex, and age as parameters. The creatinine assay has traceable calibration to isotope dilution-mass spectrometry. Refer to KDIGO guidelines for clinical interpretation. In patients with unstable renal function, e.g. those with acute kidney injury, the eGFR may not accurately reflect actual GFR. Performed By: #### 1920-8, 1 742-6, 91016-8 #### [facility] CLIA [id number] [address] [place] [address] ALT SERPL-CCNC Collected: 09/03/2024 1:29 PM Status: F Source: [facility] Order Comment: Specimen Type : BLOOD SPECIMEN Ordering Facility: [facility] Address: [address] [place], [place] [address] TYPE CODE TESTS RESULT OUT OF RANGE REFERENCE UNITS LAB 1742-6(LOINC) ALT SerPl-cCnc 22 7-38 U/L Performed By: #### 1920-8, 1 742-6, 14102-8 #### [facility] CLIA [id number] [address] [place] [address] AST SERPL-CCNC Collected: 09/03/2024 1:29 PM Status: F Source: [facility] Order Comment: Specimen Type : BLOOD SPECIMEN Ordering Facility: [facility] Address: [address] [place] [address] TYPE CODE TESTS RESULT OUT OF RANGE REFERENCE UNITS LAB 1920-8(LOINC) AST SerPl-cCnc 24 13-35 U/L Performed By: #### 1920-8, 1 742-6, 20867-6 #### [facility] CLIA [id number] [address] [place] [address] PROGRESS Observed: 08/25/2024 2:48 PM Status: COMPLETED Source: [facility] HNO ID: [id number] Author: EMILEE CONDON MD Service: ? Author Type: Physician Type: Progress Notes Filed: 09/21/2024 14:51 Note Text: This note was created using Loud3rriter. Subjective Priscilla Ramos is a 69 year old female. Patient presents with: Follow Up For: UC visit 08/21/24; Fullness in the RIGHT hilum [...] 500 mg tablet Take 500mg every morning AND 1000mg every evening gabapentin (NEURONTIN) 400 mg [...] 2 tablets by mouth twice daily. Ca/D3/mag ox/zinc/coping machine assembler/nicholas/bor (CALCIUM 600-D3 PLUS, MAG-ZINC, ORAL) turmeric/turmeric ext/pepr [...] Objective BP 157/91 Pulse 101 Temp 36.6 ?C (97.9 ?F) (Right Tympanic) Resp 16 Wt 120.4 kg (265 lb 6.9 oz) SpO2 96% BMI 45.04 kg/m? Physical Exam Constitutional: Appearance: Normal appearance. HENT: [...] resolve then CT chest would be recommended Fall Internship: [facility]IE Transcribe Date/Time: Aug 21 2024 4:41P [...] * EXAMINATION: CHEST RADIOGRAPH (2 VIEW FRONTAL AND LATERAL) CLINICAL HISTORY: Acute cough MQ: XC2_6 [...] these occur. Emilee Condon MD Recording using [employer] software for draft documentation of the visit was discussed with the patient/authorized disability representative; all questions welcomed and answered. Patient/authorized disability representative agreed to proceed CNOV Observed: 08/25/2024 2:20 PM Status: COMPLETED Source: [facility] Office Visit (INTMWS) PRISCILLA RAMOS ([id number]) 1955 F Date Time Provider Department 08/25/24 2:20 PM EMILEE CONDON INTMWS During your visit today, we recorded the following information about you: Temperature Pulse Respiration Blood pressure 97.9 degrees 101/minute 16/minute 157/91 Weight 120.4 kg Emilee Condon MD 09/21/2024 2:51 PM Signed This note was created using [employer]oud[employer]. Subjective Priscilla Ramos is a 69 year [...] 500 mg tablet Take 500mg every morning AND 1000mg every evening gabapentin (NEURONTIN) 400 mg [...] 2 tablets by mouth twice daily. Ca/D3/mag ox/zinc/coping machine assembler/nicholas/bor (CALCIUM 600-D3 PLUS, MAG-ZINC, ORAL) turmeric/turmeric ext/pepr [...] Objective BP 157/91 Pulse 101 Temp 36.6 ?C (97.9 ?F) (Right Tympanic) Resp 16 Wt 120.4 kg (265 lb 6.9 oz) SpO2 96% BMI 45.04 kg/m? Physical Exam Constitutional: Appearance: Normal appearance. HENT: [...] resolve then CT chest would be recommended Fall Internship: AMIE Transcribe Date/Time: Aug 21 2024 4:41P [...] * EXAMINATION: CHEST RADIOGRAPH (2 VIEW FRONTAL AND LATERAL) CLINICAL HISTORY: Acute cough MQ: XC2_6 [...] these occur. Emilee Condon MD Recording using [employer] software for draft documentation of the visit was discussed with the patient/authorized disability representative; all questions welcomed and answered. Patient/authorized disability representative agreed to proceed Allergies As of Date: 08/25/2024 (No Known Allergies) Date Reviewed: 08/25/2024 Reviewed by: Emy Cary MA - Fully Assessed Reason for Visit: Follow Up For [3040] Cmt: UC visit 08/21/24; Fullness in the RIGHT hilum Primary Visit Diagnosis:Acute respiratory infection [J22] Other Visit Diagnosis:Abnormal CXR [R93.89] Order(s):XR CHEST 2V FRONTAL/LAT [4833825] Order #: [id number] FUTURE benzonatate (TESSALON PERLE) 100 mg capsuleTake 1 capsule by mouth three times a day as needed.Disp: 30 capsuleRfl: 0 Prescriptions as of 09/21/2024 - benzonatate (TESSALON PERLE) 100 mg capsule Take 1 capsule by mouth three times a day as needed. - sulfaSALAzine (AZULFIDINE) 500 mg tablet Take 500mg every morning AND 1000mg every evening - gabapentin (NEURONTIN) 400 mg capsule Take 2 capsule 60-90 minutes before bedtime. - acetaminophen (TYLENOL ARTHRITIS PAIN) 650 mg CR tablet Take 1,300 mg by mouth once daily. - levothyroxine (SYNTHROID) 25 mcg tablet Take 1 tablet by mouth once daily. - rosuvastatin (CRESTOR) 5 mg tablet Take 1 tablet by mouth every Saturday, Saturday, and Saturday. - hydroCHLOROthiazide 25 mg tablet Take 1 tablet by mouth every afternoon. - colestipol (COLESTID) 1 gram tablet Take 1-2 tablets by mouth once daily. As directed - diclofenac (VOLTAREN ARTHRITIS PAIN) 1 % topical gel Apply 2 g to affected area four times daily as needed (wrist pain). - BIPAP - losartan (COZAAR) 100 mg tablet Take 100 mg by mouth once daily. - aspirin 81 mg chewable tablet Take 81 mg by mouth once daily. - ubidecarenone Q-10 (COENZYME Q-10) 10 mg cap Take 100 mg by mouth two times a day. - hyperimmune colostrum, bovine 200 mg tab Take 2 tablets by mouth twice daily. - Ca/D3/mag ox/zinc/coping machine assembler/nicholas/bor (CALCIUM 600-D3 PLUS, MAG-ZINC, ORAL) - turmeric/turmeric ext/pepr ext (TURMERIC-TURMERIC EXT-PEPPER) 900-100-5 mg cap - CPAP Bipap 17/13 cm H2O, Heat Humidity, suitable mask, Lif[employer] supplies, opt Chinstrap, G47.33. - cholecalciferol (VITAMIN D3) 2,000 unit tablet Take 2,000 Units by mouth once daily. - FLUoxetine HCl (PROZAC) 40 mg capsule Take 1 capsule by mouth once daily. (Dr. Garcia) - CYANOCOBALAMIN, VITAMIN B-12, (VITAMIN B-12 ORAL) Take by mouth. - buPROPion XL (WELLBUTRIN XL) 150 mg 24 hr tablet Take one(1) tablet daily. - Biotin (NAIL-EX) 2,500 mcg ORAL Tab Take 1,000 mcg by mouth once daily. - DAILY VITAMIN TAB Take one(1) tablet daily. Meds Comments as of 04/13/2023: 04/13/23: Amlodipine stopped and taking HCTZ now. Ginny Haq RN Problem List As Of Date 08/25/2024 Noted Resolved Fibromyalgia [M79.7] DYSTHYMIC DISORDER [F34.1] Palpitations [R00.2] 11/23/2006 01/29/2014 Dyslipidemia [E78.5] 11/25/2006 Osteopenia [M85.80] 12/14/2010 Arthrosis [M19.90] 12/14/2010 Dysmetabolic syndrome [E88.810] 10/07/2012 Obstructive sleep apnea treated with bilevel po*09/09/2013 Insomnia [G47.00] 09/09/2013 Elevated antinuclear antibody (KELTON) [...] 07/25/2022 CAD (coronary artery disease) [I25.10] 07/25/2022 Depression, recurrent (HCC) [F33.9] 12/16/2022 Intermittent claudication (HCC) [I73.9] 12/16/2022 Acute back pain with sciatica, left [M54.42] 02/07/2023 Lumbar radiculopathy [M54.16] 02/25/2024 Prescriptions ordered this encounter Disp Refills Start End BENZONATATE 100 MG CAPSULE 30 c* 0 08/25/2024 Route: PO Sig: Take 1 capsule by mouth three times a day as needed. Medications Discontinued During This Encounter Prescriptions - acetaminophen (TYLENOL EXTRA STRENGTH) 500 mg tablet (Discontinued) Take 1,000 mg by mouth every 8 hours as needed for pain. Level of Service: OFFICE/OUTPATIENT ESTABLISHED LOW MDM 20 MIN [90189] Additional E/M codes: VISIT CPLX INHERENT EANDM ASSOC WITH MED * Encounter Status:Closed by EMILEE CONDON on 09/21/24 FLUABV+SARS-COV-2+RSV PNL RE SP MORALES+PROBE Observed: 08/21/2024 5:48 PM Status: F Source: [facility] SARS-COV-2 (AGENT OF COVID-1 9) RNA: Not detectedINFLUENZA A RNA: Not detectedINFLUENZA B RNA: Not detectedRESPIRATORY SYNCYTIAL VIRUS (RSV) RNA: Not detected Performed By: #### 77243-2 # ### [facility] CLIA [id number] [address] [place] [address] [place] PROGRESS Observed: 08/21/2024 4:40 PM Status: COMPLETED Source: [facility] HNO ID: [id number] Author: MARLENE THOMAS RT(Iker) Service: Radiology Author Type: Technologist Type: Progress Notes Filed: 08/21/2024 16:38 Note Text: Radiology Service Progress Note PATIENT [...] PATIENT PRESENTS WITH AN IMPLANTABLE OR ATTACHED MILK DELIVERER: No RADIOLOGY DEPARTMENT: General X-ray: Exam(s) Completed: Chest X-Ray PERIPHERAL IV DATA: Not applicable SIGNED BY: RT Glendy(R) August 21, 2024 4:31 PM XR CHEST 2V FRONTAL/LAT Observed: 2024 4:37 PM Status: F Source: [facility] * * *Final Report* * * DATE OF EXAM: Aug 21 2024 4:37PM WOX [id number] - XR CHEST 2V FRONTAL/LAT / PROCEDURE REASON: Acute cough * * * * Physician Interpretation * * * * EXAMINATION: CHEST RADIOGRAPH (2 VIEW FRONTAL and LATERAL) CLINICAL HISTORY: Acute cough MQ: XC2_6 [...] cardiomediastinal silhouette. Bones and soft tissues: Unremarkable. IMPRESSION: Fullness in the RIGHT hilum. Although this could represent infiltrate close follow-up recommended to evaluate for complete resolution. If this does not resolve then CT chest would be recommended Fall Internship: [facility]IE Transcribe Date/Time: Aug 21 2024 4:41P Dictated by : NICOLÁS VIVAS DO This examination was interpreted and the report reviewed and electronically signed by: NICOLÁS VIVAS DO on Aug 21 2024 4:43PM EST [id number] Observed: 08/21/2024 4:24 PM Status: COMPLETED Source: [facility] HNO ID: [id number] Author: FAYE NORTON APRN.LOAD OUT WORKER Service: ? Author Type: Nurse Practitioner Type: Progress Notes Filed: 08/21/2024 17:32 Note Text: [facility] Subjective Priscilla Ramos is [...] history is provided by the patient. No manager language was used. Cough This is a new [...] 500 mg tablet Take 500mg every morning AND 1000mg every evening amoxicillin (AMOXIL) 500 mg [...] 2 tablets by mouth twice daily. Ca/D3/mag ox/zinc/coping machine assembler/nicholas/bor (CALCIUM 600-D3 PLUS, MAG-ZINC, ORAL) turmeric/turmeric ext/pepr [...] Objective BP 147/86 Pulse 93 Temp 36.1 ?C (97 ?F) Resp 22 Wt 122 kg (268 lb 15.4 oz) SpO2 96% BMI 45.64 kg/m? Physical Exam Vitals and nursing note reviewed. [...] - XR CHEST 2V FRONTAL/LAT - COVID AND INFLUENZA A/B AND RSV PCR, ROUTINE 2. Abnormal chest x-ray - ICD9: 793.2, ICD10: R93.89 CXR result reveals IMPRESSION: Fullness in the RIGHT hilum. Although this could represent infiltrate close follow-up recommended to evaluate for complete resolution. If this does not resolve then CT chest would be recommended Did not answer phone call when messaged IPLogic message provided to patient RX levaquin F/U [...] sooner if worsening of symptoms Faye Norton APRN.LOAD OUT WORKER History and Record Review External record(s) reviewed: prior inpatient record and prior outpatient record. Contributing Factors Social Determinants of Health significantly affecting care: alcohol use Chronic conditions affecting care: hypertension Disposition The patient was discharged. Procedures CNOV Observed: 08/21/2024 4:15 PM Status: COMPLETED Source: [facility] Office Visit (WSTR) PRISCILLA RAMOS ([id number]) 1955 F Date Time Provider Department 08/21/24 4:15 PM FAYE NORTON During your visit today, we recorded the following information about you: Temperature Pulse Respiration Blood pressure 97 degrees 93/minute 22/minute 147/86 Weight 122 kg Faye Norton APRN.CNP 08/21/2024 5:32 PM Signed [facility] Subjective Priscilla Ramos is [...] history is provided by the patient. No manager language was used. Cough This is a new [...] 500 mg tablet Take 500mg every morning AND 1000mg every evening amoxicillin (AMOXIL) 500 mg [...] 2 tablets by mouth twice daily. Ca/D3/mag ox/zinc/coping machine assembler/nicholas/bor (CALCIUM 600-D3 PLUS, MAG-ZINC, ORAL) turmeric/turmeric ext/pepr [...] Objective BP 147/86 Pulse 93 Temp 36.1 ?C (97 ?F) Resp 22 Wt 122 kg (268 lb 15.4 oz) SpO2 96% BMI 45.64 kg/m? Physical Exam Vitals and nursing note reviewed. [...] - XR CHEST 2V FRONTAL/LAT - COVID AND INFLUENZA A/B AND RSV PCR, ROUTINE 2. Abnormal chest x-ray - ICD9: 793.2, ICD10: R93.89 CXR result reveals IMPRESSION: Fullness in the RIGHT hilum. Although this could represent infiltrate close follow-up recommended to evaluate for complete resolution. If this does not resolve then CT chest would be recommended Did not answer phone call when messaged IPL[employer]ic message provided to patient RX levaquin F/U [...] sooner if worsening of symptoms Faye Norton APRN.LOAD OUT WORKER History and Record Review External record(s) reviewed: prior inpatient record and prior outpatient record. Contributing Factors Social Determinants of Health significantly affecting care: alcohol use Chronic conditions affecting care: hypertension Disposition The patient was discharged. Procedures Allergies As of Date: 08/21/2024 (No Known Allergies) Date Reviewed: 08/21/2024 Reviewed by: Celina Camacho LPN - Fully Assessed Reason for Visit: Cough [28] Cmt: Chest congestion, sinus pressure and pain, fatigue, drainage, SOB, x 4 days Primary Visit Diagnosis:Acute cough [R05.1] Other Visit Diagnoses:Abnormal chest x-ray [R93.89] URI, acute [J06.9] Order(s):XR CHEST 2V FRONTAL/LAT [[id number]] Order #: [id number] FUTURE COVID AND INFLUENZA A/B AND RSV PCR, ROUTINE [SQCVFLRS] Order #: [id number]. #:[id number] levoFLOXacin (LEVAQUIN) 750 mg tabletTake 1 tablet by mouth once daily for 5 days.Disp: 5 tabletRfl: 0 Prescriptions as of 08/21/2024 - levoFLOXacin (LEVAQUIN) 750 mg tablet Take 1 tablet by mouth once daily for 5 days. - sulfaSALAzine (AZULFIDINE) 500 mg tablet Take 500mg every morning AND 1000mg every evening - amoxicillin (AMOXIL) 500 mg capsule Take 1 capsule by mouth two times a day for 7 days. - nitrofurantoin monohydrate and macrocrystal (MACROBID) 100 mg capsule Take 1 capsule by mouth two times a day for 7 days. - clotrimazole-betamethasone (LOTRISONE) cream Apply to affected area two times a day for 7 days. - gabapentin (NEURONTIN) 400 mg capsule Take 2 capsule 60-90 minutes before bedtime. - acetaminophen (TYLENOL ARTHRITIS PAIN) 650 mg CR tablet Take 1,300 mg by mouth once daily. - levothyroxine (SYNTHROID) 25 mcg tablet Take 1 tablet by mouth once daily. - rosuvastatin (CRESTOR) 5 mg tablet Take 1 tablet by mouth every Saturday, Saturday, and Saturday. - hydroCHLOROthiazide 25 mg tablet Take 1 tablet by mouth every afternoon. - acetaminophen (TYLENOL EXTRA STRENGTH) 500 mg tablet Take 1,000 mg by mouth every 8 hours as needed for pain. - colestipol (COLESTID) 1 gram tablet Take 1-2 tablets by mouth once daily. As directed - diclofenac (VOLTAREN ARTHRITIS PAIN) 1 % topical gel Apply 2 g to affected area four times daily as needed (wrist pain). - BIPAP - losartan (COZAAR) 100 mg tablet Take 100 mg by mouth once daily. - aspirin 81 mg chewable tablet Take 81 mg by mouth once daily. - ubidecarenone Q-10 (COENZYME Q-10) 10 mg cap Take 100 mg by mouth two times a day. - hyperimmune colostrum, bovine 200 mg tab Take 2 tablets by mouth twice daily. - Ca/D3/mag ox/zinc/coping machine assembler/nicholas/bor (CALCIUM 600-D3 PLUS, MAG-ZINC, ORAL) - turmeric/turmeric ext/pepr ext (TURMERIC-TURMERIC EXT-PEPPER) 900-100-5 mg cap - CPAP Bipap 17/13 cm H2O, Heat Humidity, suitable mask, [employer] supplies, opt Chinstrap, G47.33. - cholecalciferol (VITAMIN D3) 2,000 unit tablet Take 2,000 Units by mouth once daily. - FLUoxetine HCl (PROZAC) 40 mg capsule Take 1 capsule by mouth once daily. (Dr. Garcia) - CYANOCOBALAMIN, VITAMIN B-12, (VITAMIN B-12 ORAL) Take by mouth. - buPROPion XL (WELLBUTRIN XL) 150 mg 24 hr tablet Take one(1) tablet daily. - Biotin (NAIL-EX) 2,500 mcg ORAL Tab Take 1,000 mcg by mouth once daily. - DAILY VITAMIN TAB Take one(1) tablet daily. Meds Comments as of 04/13/2023: 04/13/23: Amlodipine stopped and taking HCTZ now. Ginny Haq RN Problem List As Of Date 08/21/2024 Noted Resolved Fibromyalgia [M79.7] DYSTHYMIC DISORDER [F34.1] Palpitations [R00.2] 11/23/2006 01/29/2014 Dyslipidemia [E78.5] 11/25/2006 Osteopenia [M85.80] 12/14/2010 Arthrosis [M19.90] 12/14/2010 Dysmetabolic syndrome [E88.810] 10/07/2012 Obstructive sleep apnea treated with bilevel po*09/09/2013 Insomnia [G47.00] 09/09/2013 Elevated antinuclear antibody (KELTON) [...] 07/25/2022 CAD (coronary artery disease) [I25.10] 07/25/2022 Depression, recurrent (HCC) [F33.9] 12/16/2022 Intermittent claudication (HCC) [I73.9] 12/16/2022 Acute back pain with sciatica, left [M54.42] 02/07/2023 Lumbar radiculopathy [M54.16] 02/25/2024 Prescriptions ordered this encounter Disp Refills Start End LEVOFLOXACIN 750 MG TABLET 5 ta* 0 08/21/2024 08/26/2024 Route: ORAL Sig: Take 1 tablet by mouth once daily for 5 days. Encounter Status:Closed by FAYE NORTON on 08/21/24 BACTERIA UR CULT Observed: 08/14/2024 4:11 PM Status: F Source: [facility] CULTURE, URINE: Mixed microbiota, including predominantly: ORGANISM ID: 1 10,000 -<50,000 CFU/ml Streptococcus anginosus No susceptibility testing done. Performed By: #### 630-4 ### # [facility] CLIA [id number] [address] [place] [address] URINALYSIS COMPLETE PNL UR Collected: 08/14/2024 4:11 PM Status: F Source: [facility] Order Comment: Specimen Type : URINE SPECIMEN Ordering Facility: [facility] Address: [address] [place] [address] TYPE CODE TESTS RESULT OUT OF RANGE REFERENCE UNITS LAB 5778-6(LOINC) Color Ur Yellow Yellow LAB 97340-1(LOINC) Clarity Spec Clear Clear LAB 5792-7(LOINC) Glucose Ur Strip-mCnc Negative Negative LAB 5770-3(LOINC) Bilirub Ur Ql Strip Negative Negative LAB 2514-8(LOINC) Ketones Ur Strip Negative Negative LAB 5811-5(LOINC) Sp Gr Ur Strip 1.018 1.005-1.030 LAB 5794-3(LOINC) Hgb Ur Ql Strip Trace Abnormal Negative LAB 5803-2(LOINC) pH Ur Strip 6.5 <8.5 LAB 5804-0(LOINC) Prot Ur Strip-mCnc Negative Negative LAB 5818-0(LOINC) Urobilinogen Ur Strip 0.2 EU/dL 0.2-1.0 EU/dL LAB 5802-4(LOINC) Nitrite Ur Ql Strip Negative Negative LAB 5799-2(LOINC) Leukocyte esterase Ur Ql Strip 2+ Abnormal Negative LAB 5821-4(LOINC) WBC #/area UrnS HPF >20 /HPF Abnormal 0-5 /HPF LAB 41402-9(LOINC) RBC #/area UrnS HPF 6-10 /HPF Abnormal 0-2 /HPF LAB 5769-5(LOINC) Bacteria #/area UrnS HPF Negative Negative /HPF LAB 5787-7(LOINC) Epi Cells #/area UrnS HPF Few /HPF LAB 5796-8(LOINC) Hyaline Casts #/area UrnS LPF 0 /LPF 0 /LPF Performed By: #### [id number] # ### [facility] CLIA [id number] [address] [place] [address] PAP TEST Collected: 10:35 AM Status: F Source: [facility] Order Comment: Specimen Type : FLUID SPECIMEN Ordering Facility: [facility] Address: [address] [place] [address] TYPE CODE TESTS RESULT OUT OF RANGE REFERENCE UNITS PATHOLOGY [id number] CASE REPORT Result Comment: Gynecologic Cytology Report Case: [id number] Authorizing Provider: Donnie Hernandez APRN.LOAD OUT WORKER Collected: 08/14/2024 10:35 AM Ordering Location: OB/Gynecology Received: 08/14/2024 11:56 AM First Screen: Sonia Vega CT ASCP Specimen: Pap Test, ThinPrep, Cervix PATHOLOGY [id number] ADEQUACY Result Comment: Satisfactory for interpretation. No endocervical component PATHOLOGY [id number] INTERPRETATIO N, CYTOLOGY, PATHOLOGY TECHNOLOGIST Result Comment: Negative for intraepithelial lesion or malignancy. at 1453 EDT PATHOLOGY [id number] CLINICAL HISTORY, CYTOLOGY, PATHOLOGY TECHNOLOGIST Post Menopausal PATHOLOGY PAPDC PAP DISCLAIMER COMMENT The Pap Smear is a screening test for cervical cancer. False negative results occur with all screening tests, emphasizing the need for rescreening at recommended intervals, and clinical correlation. PATHOLOGY PAPIC PAP HUMAN RESOURCES FILE CLERK COMMENT This specimen has been analyzed by the [employer] System, an automated imaging and review system, which assists the laboratory in evaluating cells on ThinPrep Pap tests. Following automated imaging, selected kowalski from every slide are reviewed by a cytotechnologi st. PATHOLOGY [facility] FINAL PERFORMING LAB Result Comment: Technical co lauryn receiver setter screening performed at: [facility], [address] [place] [address] CLIA: [id number] Diagnostic interpretation performed at: [facility], [address] [place] [address] CLIA# [id number] Byproduct Engineer: Eris Carrillo MD Performed By: #### [id number] # ### [facility] CLIA [id number] [address] [place] [address] CNOV Observed: 08/14/2024 10:15 AM Status: COMPLETED Source: [facility] Office Visit (OBGYWM) PRISCILLA RAMOS ([id number]) 1955 F Date Time Provider Department 08/14/24 10:15 AM DONNIE HERNANDEZ During your visit today, we recorded the following information about you: Blood pressure Weight Height 128/80 123.8 kg 1.635 m Donnie Hernandez APRN.CNP 08/14/2024 10:35 AM Signed Announcer offered: Patient declines. Wells is a 69 year old who presents for an annual gynecologic exam with complaints, dysuria and urinary frequency. 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 Postmenopausal: Yes HRT use: No. Still get period: No LMP: unknown Menopause symptoms: None Number of lifetime partners: 1 control frequency: Never Contraception: Hysterectomy for fibroids HPV vaccine: No; Last pap smear: 01/23/2019 normal, HPV negative History of abnormal pap: No, all prior PAP smears have been normal Bothersome pelvic pain: No Last mammogram: 10/2023 normal History of abnormal mammogram: yes, had biopsy. Benign results OB History Gravida2 Para2 Term2 Preterm0 AB0 Living2 SAB0 IAB0 Ectopic0 Multiple0 Live Births0 FAMILY HISTORY Problem Relation Age of Onset [...] Comment: wine with supper Drug use: No REVIEW OF SYSTEMS Abdomen: No abdominal pain, nausea, vomiting, diarrhea, or constipation. No bloating, early satiety, indigestion, or increased flatulence. Bladder: No gross hematuria, or incontinence + dysuria, frequency, urgency Breast: No breast lumps, nipple d/c, overlying skin changes, redness or skin retraction Allergies and current medication updated:Yes SENSITIVE EXAM: The sensitive examination was discussed with the Patient or Patient's Authorized Ultrasound Coordinator. As applicable, any other physician, advance practice provider, medical student, or other health professional student that will be observing or involved in the sensitive examination for educational or training purposes was discussed with the Patient or Authorized Ultrasound Coordinator. The Patient or Authorized Ultrasound Coordinator has agreed to proceed with the sensitive examination. (Sensitive examination includes inspection and/or palpation of the breasts, pelvis, prostate and anorectal regions). EXAM: BP 128/80 Ht 5' 4.37 (1.64m) Wt 273 lb (123.8kg) BMI 46.32 kg/(m2). GENERAL: pleasant, female in no apparent distress HEENT: Normocephalic, atraumatic, mucus membranes moist, and no lesions NECK: Supple, full range of motion, no adenopathy, and thyroid normal DERMATOLOGY: Normal, without lesions, non-icteric, and non-hirsute BREAST: soft, non-tender, symmetric, no dominant mass, normal nipple-areolar complex, no lymphadenopathy, and no nipple discharge CHEST: Normal inspiratory effort ABDOMEN: soft, non-tender, and no masses PELVIC: external genitalia slightly erythematous radiating to right groin, normal Bartholin's glands, urethra, [place]'s glands, no vulvar lesions, no cervical lesions, good vaginal support, physiologic discharge present, normal appearing perineal body and perianal region BIMANUAL: no adnexal masses, non-tender, and uterus surgically absent RECTOVAGINAL: deferred. NEURO: alert and oriented x3,exam grossly non-focal EXTREMITIES: normal ASSESSMENT/PLAN: 1) Health maintenance: Pap done with reflex HPV. Explained that paps no longer indicated after 65 if all have been normal. Still requests pap. Mammogram ordered Nutrition, exercise and routine health maintenance exams reviewed. Calcium/Vitamin D supplementation information provided. Colon cancer screening: up to date with screening TSH/lipids/glucose: followed by PCP BMD: followed by PCP 2) Follow up one year or sooner as needed Dysuria - ICD9: 788.1, ICD10: R30.0 Urinary frequency - ICD9: 788.41, ICD10: R35.0 - Likely UTI based on symptoms - Culture ordered - Start Macrobid Vulvar irritation - ICD9: 624.8, ICD10: N90.89 - Appears consistent with yeast - CLOTRIMAZOLE-BETAMETHASONE 1 %-0.05 % TOPICAL CREAM - Follow up if symptoms don't resolve Donnie Hernandez APRN.CNP Medical Decision Making: Problems: Low: Acute, uncomplicated illness or injury Data: Unique test(s) ordered: 2 Risk: Low: Low risk from testing/treatment Moderate: Drug management Medical Decision Making Level: 3 - Low Donnie Hernandez APRN.CNP 08/14/2024 10:17 AM Signed Calcium and Vitamin D Supplementation (from the National Institutes of Health Office of Dietary Supplements 2010) Calcium is required by the body for blood vessel, muscle, hormone and nerve functioning. Most of the body's calcium is stored in the bones and teeth where it supports structure and function. Bone is continuously broken down and reformed. When bone breakdown exceeds formation, especially in postmenopausal women, bone loss can increase the risk of osteoporosis and fractures. In addition to low calcium intake, women who smoke, have a family history of osteoporosis, are thin, or , or who take certain medications such as cancer chemotherapy, seizure mediations and steroids are at increased risk of osteoporosis. The calcium requirements in women change with age. The National Institutes of Health (NIH) recommends: 1000mg elemental calcium for premenopausal women age 19-50 1200mg elemental calcium for postmenopausal women and all women over 50 Milk, yogurt, and cheese are rich natural sources of calcium and are the major food contributors in the [place]. For example, 8oz of milk (whole, lowfat or skim) contains about 300mg calcium, 8oz of yogurt contains 415mg. Nondairy sources include salmon and sardines and vegetables, such as Maltese cabbage, kale, and broccoli. Foods fortified with calcium include many fruit juices, tofu and cereals. For more food calcium content information, visit http://ods.od.nih.gov/factsheets/calcium. Calcium supplements come in several different forms. Remember that the recommendations are for millgrams (mg) of elemental calcium which may be less than the total weight of the supplement. The amount of elemental calcium is required to be printed on the label. Calcium carbonate is the least expensive form. It must be taken on a full stomach to be properly absorbed. Some patients may experience gas or constipation. Calcium phosphate and calcium citrate may be taken either with or without food and tend to have less side effects but are generally more expensive. Because of its ability to neutralize stomach acid, calcium carbonate is found in some fonk-bjc-nwergji antacid products, such as Tums? and Rolaids?. Depending on its strength, each chewable pill or softchew provides 200 to 400 mg of elemental calcium. The percentage of calcium absorbed depends on the total amount of elemental calcium consumed at one time. Absorption is highest in doses <500mg. So a woman who takes 1,000mg/day of calcium from supplements should split the dose and take 500mg at two separate times during the day. Too much calcium can cause kidney stones, constipation, difficulty absorbing other nutrients and calcium buildup in blood vessels. Women under 50 should not exceed 2500mg/day (2000mg/day for women over 50) of calcium from food and supplements. Excessive alcohol and caffeine intake can inhibit absorption of calcium. Calcium can reduce the absorption of some medications if taken at the same time of day (bisphosphonates, thyroid medication, Phenytoin and other seizure medications, some antibiotics and iron supplements). Vitamin D promotes calcium absorption in the gut and maintains adequate blood levels of calcium and phosphate for normal bone growth and bone remodeling. Vitamin D also helps regulate cell growth as well as nerve, muscle and immune system function. Vitamin D is produced in the skin as a result of ultraviolet sunlight rays and must be altered in the liver and kidney to become its active form. Recommended intake according to the National Institutes of Health is 600 International Units (IU) for girls and women ages 1-70 and 800 IU for women over 70. Very few foods in nature contain vitamin D. The flesh of fatty fish (such as salmon, tuna, and mackerel) and fish liver oils are among the best sources. Small amounts of vitamin D are found in beef liver, cheese, mushrooms and egg yolks. Most people meet at least some of their vitamin D needs through exposure to sunlight. Season, time of day, length of day, cloud cover, smog, skin melanin content, and sunscreen are among the factors that affect UV radiation exposure and vitamin D synthesis. Despite the importance of the sun for vitamin D synthesis, it is prudent to limit exposure of skin to sunlight and avoid tanning beds. UV radiation is a carcinogen responsible for most of the estimated 1.5 million skin cancers that occur annually in the [place]. Lifetime cumulative UV damage to skin is also responsible for some age-associated dryness and other cosmetic changes. In supplements and fortified foods, vitamin D is available in two forms, D2 (ergocalciferol) and D3 (cholecalciferol). The two are equivalent at normal supplement doses. For women who require high supplement doses because of vitamin D deficiency, D3 may work better to raise blood levels. Some medications can prevent proper absorption of Vitamin D. These include laxatives, corticosteroids like prednisone, the seizure drugs phenobarbital and phenytoin, the weight-loss drug orlistat ( Xenical? and AlliTM) and the cholesterol-lowering drug cholestyramine (Questran?, LoCholest?, and Prevalite?). Talk to your doctor about adjusting your recommended daily vitamin D dosage if you take these medications. You should not exceed 4000 mg of vitamin D supplementation daily unless specifically prescribed by your doctor. Allergies As of Date: 08/14/2024 (No Known Allergies) Date Reviewed: 08/14/2024 Reviewed by: Donnie Hernandez APRN.LOAD OUT WORKER - Fully Assessed Reason for Visit: Well Woman [1463] Primary Visit Diagnosis:Encounter for gynecological examination with abnormal finding [Z01.411] Other Visit Diagnoses:Encounter for screening mammogram for breast cancer [Z12.31] Dysuria [R30.0] Urinary frequency [R35.0] Screening for cervical cancer [Z12.4] Vulvar irritation [N90.89] Order(s):SIL SCREENING W JOSE [5175182] Order #: [id number] FUTURE PAP TEST [FJH2502] Order #: [id number]. #:[id number] nitrofurantoin monohydrate and macrocrystal (MACROBID) 100 mg capsuleTake 1 capsule by mouth two times a day for 7 days.Disp: 14 capsuleRfl: 0 BACTERIAL CULTURE, URINE [SQURCUL] Order #: [id number] FUTURE URINALYSIS, WITH MICROSCOPIC [SQUAWMIC] Order #: [id number] FUTURE clotrimazole-betamethasone (LOTRISONE) creamApply to affected area two times a day for 7 days.Disp: 15 gRfl: 0 Prescriptions as of 08/14/2024 - nitrofurantoin monohydrate and macrocrystal (MACROBID) 100 mg capsule Take 1 capsule by mouth two times a day for 7 days. - clotrimazole-betamethasone (LOTRISONE) cream Apply to affected area two times a day for 7 days. - sulfaSALAzine (AZULFIDINE) 500 mg tablet 500mg once/day x1 week, then 500mg twice/day x1 wk, then 500mg every morning AND 1000mg every evening thereafter - gabapentin (NEURONTIN) 400 mg capsule Take 2 capsule 60-90 minutes before bedtime. - acetaminophen (TYLENOL ARTHRITIS PAIN) 650 mg CR tablet Take 1,300 mg by mouth once daily. - levothyroxine (SYNTHROID) 25 mcg tablet Take 1 tablet by mouth once daily. - rosuvastatin (CRESTOR) 5 mg tablet Take 1 tablet by mouth every Saturday, Saturday, and Saturday. - hydroCHLOROthiazide 25 mg tablet Take 1 tablet by mouth every afternoon. - acetaminophen (TYLENOL EXTRA STRENGTH) 500 mg tablet Take 1,000 mg by mouth every 8 hours as needed for pain. - colestipol (COLESTID) 1 gram tablet Take 1-2 tablets by mouth once daily. As directed - diclofenac (VOLTAREN ARTHRITIS PAIN) 1 % topical gel Apply 2 g to affected area four times daily as needed (wrist pain). - BIPAP - losartan (COZAAR) 100 mg tablet Take 100 mg by mouth once daily. - aspirin 81 mg chewable tablet Take 81 mg by mouth once daily. - ubidecarenone Q-10 (COENZYME Q-10) 10 mg cap Take 100 mg by mouth two times a day. - hyperimmune colostrum, bovine 200 mg tab Take 2 tablets by mouth twice daily. - Ca/D3/mag ox/zinc/coping machine assembler/nicholas/bor (CALCIUM 600-D3 PLUS, MAG-ZINC, ORAL) - turmeric/turmeric ext/pepr ext (TURMERIC-TURMERIC EXT-PEPPER) 900-100-5 mg cap - CPAP Bipap 17/13 cm H2O, Heat Humidity, suitable mask, [employer] supplies, opt [place], G47.33. - cholecalciferol (VITAMIN D3) 2,000 unit tablet Take 2,000 Units by mouth once daily. - FLUoxetine HCl (PROZAC) 40 mg capsule Take 1 capsule by mouth once daily. (Dr. Garcia) - CYANOCOBALAMIN, VITAMIN B-12, (VITAMIN B-12 ORAL) Take by mouth. - buPROPion XL (WELLBUTRIN XL) 150 mg 24 hr tablet Take one(1) tablet daily. - Biotin (NAIL-EX) 2,500 mcg ORAL Tab Take 1,000 mcg by mouth once daily. - DAILY VITAMIN TAB Take one(1) tablet daily. Meds Comments as of 04/13/2023: 04/13/23: Amlodipine stopped and taking HCTZ now. Ginny Haq RN Problem List As Of Date 08/14/2024 Noted Resolved Fibromyalgia [M79.7] DYSTHYMIC DISORDER [F34.1] Palpitations [R00.2] 11/23/2006 01/29/2014 Dyslipidemia [E78.5] 11/25/2006 Osteopenia [M85.80] 12/14/2010 Arthrosis [M19.90] 12/14/2010 Dysmetabolic syndrome [E88.810] 10/07/2012 Obstructive sleep apnea treated with bilevel po*09/09/2013 Insomnia [G47.00] 09/09/2013 Elevated antinuclear antibody (KELTON) [...] 07/25/2022 CAD (coronary artery disease) [I25.10] 07/25/2022 Depression, recurrent (HCC) [F33.9] 12/16/2022 Intermittent claudication (HCC) [I73.9] 12/16/2022 Acute back pain with sciatica, left [M54.42] 02/07/2023 Lumbar radiculopathy [M54.16] 02/25/2024 Other instructions from your clinician: Calcium and Vitamin D Supplementation (from the National Institutes of Health Office of Dietary Supplements 2010) Calcium is required by the body for blood vessel, muscle, hormone and nerve functioning. Most of the body's calcium is stored in the bones and teeth where it supports structure and function. Bone is continuously broken down and reformed. When bone breakdown exceeds formation, especially in postmenopausal women, bone loss can increase the risk of osteoporosis and fractures. In addition to low calcium intake, women who smoke, have a family history of osteoporosis, are thin, or , or who take certain medications such as cancer chemotherapy, seizure mediations and steroids are at increased risk of osteoporosis. The calcium requirements in women change with age. The National Institutes of Health (NIH) recommends: 1000mg elemental calcium for premenopausal women age 19-50 1200mg elemental calcium for postmenopausal women and all women over 50 Milk, yogurt, and cheese are rich natural sources of calcium and are the major food contributors in the [place]. For example, 8oz of milk (whole, lowfat or skim) contains about 300mg calcium, 8oz of yogurt contains 415mg. Nondairy sources include salmon and sardines and vegetables, such as Maltese cabbage, kale, and broccoli. Foods fortified with calcium include many fruit juices, tofu and cereals. For more food calcium content information, visit http://ods.od.nih.gov/factsheets/calcium. Calcium supplements come in several different forms. Remember that the recommendations are for millgrams (mg) of elemental calcium which may be less than the total weight of the supplement. The amount of elemental calcium is required to be printed on the label. Calcium carbonate is the least expensive form. It must be taken on a full stomach to be properly absorbed. Some patients may experience gas or constipation. Calcium phosphate and calcium citrate may be taken either with or without food and tend to have less side effects but are generally more expensive. Because of its ability to neutralize stomach acid, calcium carbonate is found in some mtex-did-ditmdis antacid products, such as Tums? and Rolaids?. Depending on its strength, each chewable pill or softchew provides 200 to 400 mg of elemental calcium. The percentage of calcium absorbed depends on the total amount of elemental calcium consumed at one time. Absorption is highest in doses <500mg. So a woman who takes 1,000mg/day of calcium from supplements should split the dose and take 500mg at two separate times during the day. Too much calcium can cause kidney stones, constipation, difficulty absorbing other nutrients and calcium buildup in blood vessels. Women under 50 should not exceed 2500mg/day (2000mg/day for women over 50) of calcium from food and supplements. Excessive alcohol and caffeine intake can inhibit absorption of calcium. Calcium can reduce the absorption of some medications if taken at the same time of day (bisphosphonates, thyroid medication, Phenytoin and other seizure medications, some antibiotics and iron supplements). Vitamin D promotes calcium absorption in the gut and maintains adequate blood levels of calcium and phosphate for normal bone growth and bone remodeling. Vitamin D also helps regulate cell growth as well as nerve, muscle and immune system function. Vitamin D is produced in the skin as a result of ultraviolet sunlight rays and must be altered in the liver and kidney to become its active form. Recommended intake according to the National Institutes of Health is 600 International Units (IU) for girls and women ages 1-70 and 800 IU for women over 70. Very few foods in nature contain vitamin D. The flesh of fatty fish (such as salmon, tuna, and mackerel) and fish liver oils are among the best sources. Small amounts of vitamin D are found in beef liver, cheese, mushrooms and egg yolks. Most people meet at least some of their vitamin D needs through exposure to sunlight. Season, time of day, length of day, cloud cover, smog, skin melanin content, and sunscreen are among the factors that affect UV radiation exposure and vitamin D synthesis. Despite the importance of the sun for vitamin D synthesis, it is prudent to limit exposure of skin to sunlight and avoid tanning beds. UV radiation is a carcinogen responsible for most of the estimated 1.5 million skin cancers that occur annually in the [place]. Lifetime cumulative UV damage to skin is also responsible for some age-associated dryness and other cosmetic changes. In supplements and fortified foods, vitamin D is available in two forms, D2 (ergocalciferol) and D3 (cholecalciferol). The two are equivalent at normal supplement doses. For women who require high supplement doses because of vitamin D deficiency, D3 may work better to raise blood levels. Some medications can prevent proper absorption of Vitamin D. These include laxatives, corticosteroids like prednisone, the seizure drugs phenobarbital and phenytoin, the weight-loss drug orlistat ( Xenical? and AlliTM) and the cholesterol-lowering drug cholestyramine (Questran?, LoCholest?, and Prevalite?). Talk to your doctor about adjusting your recommended daily vitamin D dosage if you take these medications. You should not exceed 4000 mg of vitamin D supplementation daily unless specifically prescribed by your doctor. Prescriptions ordered this encounter Disp Refills Start End NITROFURANTOIN MONOHYDRATE AND MACROCR* 14 c* 0 08/14/2024 08/21/2024 Route: ORAL Sig: Take 1 capsule by mouth two times a day for 7 days. CLOTRIMAZOLE-BETAMETHASONE 1 %-0.05 * 15 g 0 08/14/2024 08/21/2024 Route: TOPICAL Sig: Apply to affected area two times a day for 7 days. Disposition: Return in 1 year (on 08/14/2025) for Annual Exam. Follow-up and Disposition History for Encounter Date Provider Department Center 08/14/2024 [id number]-UDPIQDONNIE HERNANDEZ [facility] Encounter Status:Closed by DONNIE HERNANDEZ on 08/14/24 PROGRESS Observed: 08/14/2024 10:04 AM Status: COMPLETED Source: [facility] ID: [id number] Author: DONNIE HERNANDEZ APRN.ISAURO Service: ? Author Type: Nurse Practitioner Type: Progress Notes Filed: 08/14/2024 10:35 Note Text: Announcer offered: Patient declinesSheron Wells is a 69 year old who presents for an annual gynecologic exam with complaints, dysuria and urinary frequency. 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 Postmenopausal: Yes HRT use: No. Still get period: No LMP: unknown Menopause symptoms: None Number of lifetime partners: 1 control frequency: Never Contraception: Hysterectomy for fibroids HPV vaccine: No; Last pap smear: 01/23/2019 normal, HPV negative History of abnormal pap: No, all prior PAP smears have been normal Bothersome pelvic pain: No Last mammogram: 10/2023 normal History of abnormal mammogram: yes, had biopsy. Benign results OB History Gravida2 Para2 Term2 Preterm0 AB0 Living2 SAB0 IAB0 Ectopic0 Multiple0 Live Births0 FAMILY HISTORY Problem Relation Age of Onset [...] Comment: wine with supper Drug use: No REVIEW OF SYSTEMS Abdomen: No abdominal pain, nausea, vomiting, diarrhea, or constipation. No bloating, early satiety, indigestion, or increased flatulence. Bladder: No gross hematuria, or incontinence + dysuria, frequency, urgency Breast: No breast lumps, nipple d/c, overlying skin changes, redness or skin retraction Allergies and current medication updated:Yes SENSITIVE EXAM: The sensitive examination was discussed with the Patient or Patient's Authorized Ultrasound Coordinator. As applicable, any other physician, advance practice provider, medical student, or other health professional student that will be observing or involved in the sensitive examination for educational or training purposes was discussed with the Patient or Authorized Ultrasound Coordinator. The Patient or Authorized Ultrasound Coordinator has agreed to proceed with the sensitive examination. (Sensitive examination includes inspection and/or palpation of the breasts, pelvis, prostate and anorectal regions). EXAM: BP 128/80 Ht 5' 4.37 (1.64m) Wt 273 lb (123.8kg) BMI 46.32 kg/(m2). GENERAL: pleasant, female in no apparent distress HEENT: Normocephalic, atraumatic, mucus membranes moist, and no lesions NECK: Supple, full range of motion, no adenopathy, and thyroid normal DERMATOLOGY: Normal, without lesions, non-icteric, and non-hirsute BREAST: soft, non-tender, symmetric, no dominant mass, normal nipple-areolar complex, no lymphadenopathy, and no nipple discharge CHEST: Normal inspiratory effort ABDOMEN: soft, non-tender, and no masses PELVIC: external genitalia slightly erythematous radiating to right groin, normal Bartholin's glands, urethra, [place]'s glands, no vulvar lesions, no cervical lesions, good vaginal support, physiologic discharge present, normal appearing perineal body and perianal region BIMANUAL: no adnexal masses, non-tender, and uterus surgically absent RECTOVAGINAL: deferred. NEURO: alert and oriented x3,exam grossly non-focal EXTREMITIES: normal ASSESSMENT/PLAN: 1) Health maintenance: Pap done with reflex HPV. Explained that paps no longer indicated after 65 if all have been normal. Still requests pap. Mammogram ordered Nutrition, exercise and routine health maintenance exams reviewed. Calcium/Vitamin D supplementation information provided. Colon cancer screening: up to date with screening TSH/lipids/glucose: followed by PCP BMD: followed by PCP 2) Follow up one year or sooner as needed Dysuria - ICD9: 788.1, ICD10: R30.0 Urinary frequency - ICD9: 788.41, ICD10: R35.0 - Likely UTI based on symptoms - Culture ordered - Start Macrobid Vulvar irritation - ICD9: 624.8, ICD10: N90.89 - Appears consistent with yeast - CLOTRIMAZOLE-BETAMETHASONE 1 %-0.05 % TOPICAL CREAM - Follow up if symptoms don't resolve Donnie Hernandez APRN.LOAD OUT WORKER Medical Decision Making: Problems: Low: Acute, uncomplicated illness or injury Data: Unique test(s) ordered: 2 Risk: Low: Low risk from testing/treatment Moderate: Drug management Medical Decision Making Level: 3 - Low CREATININE + EGFR PNL SERPLBLD Collecte d: 08/06/2024 11:32 AM Status: F Source: [facility] [place] [facility] Comment: Specimen Type : BLOOD SPECIMEN Ordering Facility: [facility] Address: [address] [place] [address] TYPE CODE TESTS RESULT OUT OF RANGE REFERENCE UNITS LAB 2160-0(LOINC) Creat SerPl-mCnc 0.70 0.58-0.96 mg/dL LAB 59363-1(LOINC) Creatinine + eGFR Pnl SerPlBld 93 >=60 mL/min/1. 73m??? Result Comment: Estimated Gl omerular Filtration Rate (eGFR) is calculated using the 2020 CKD-EPI creatinine equation. This equation utilizes serum creatinine, sex, and age as parameters. The creatinine assay has traceable calibration to isotope dilution-mass spectrometry. Refer to KDIGO guidelines for clinical interpretation. In patients with unstable renal function, e.g. those with acute kidney injury, the eGFR may not accurately reflect actual GFR. Performed By: #### 1920-8, 4 5066-8, 1742-6 #### [facility] CLIA [id number] [address] [place] [address] [place] ALT SERPL-CCNC Collected: 11:32 AM Status: F Source: [facility] [place] [facility] Comment: Specimen Type : BLOOD SPECIMEN Ordering Facility: [facility] Address: [address] [place], [place] [id number] TYPE CODE TESTS RESULT OUT OF RANGE REFERENCE UNITS LAB 1742-6(LOINC) ALT SerPl-cCnc 21 7-38 U/L Performed By: #### 1920-8, 4 5066-8, 1742-6 #### [facility] CLIA [id number] [address] [place] [address] [place] AST SERPL-CCNC Collected: 11:32 AM Status: F Source: [facility] Order Comment: Specimen Type : BLOOD SPECIMEN Ordering Facility: [facility] Address: [address] [place] [address] TYPE CODE TESTS RESULT OUT OF RANGE REFERENCE UNITS LAB 1920-8([facility]) AST SerPl-cCnc 21 13-35 U/L Performed By: #### 1920-8, 4 5066-8, 1742-6 #### [facility] CLIA [id number] [address] [place] [address] CBC PNL BLD AUTO Collected: 5 11:32 AM Status: F Source: [facility] Order Comment: Specimen Type : BLOOD SPECIMEN Ordering Facility: [facility] Address: [address] [place] [address] TYPE CODE TESTS RESULT OUT OF RANGE REFERENCE UNITS LAB 6690-2(INC) WBC # Bld Auto 7.36 3.70-11.00 k/uL LAB 789-8(INC) RBC # Bld Auto 4.59 3.90-5.20 m/uL LAB 718-7(INC) Hgb Bld-mCnc 14.3 11.5-15.5 g/dL LAB 4544-3(INC) Hct VFr Bld Auto 41.9 36.0-46.0 % LAB 787-2(INC) MCV RBC Auto 91.3 80.0-100.0 fL LAB 785-6(INC) MCH RBC Qn Auto 31.2 26.0-34.0 pg LAB 786-4(INC) MCHC RBC Auto-mCnc 34.1 30.5-36.0 g/dL LAB 98142-1(INC) RDW RBC-Rto 12.9 11.5-15.0 % LAB 777-3(INC) Platelet # Bld Auto 290 150-400 k/uL LAB 94908-9([facility]) PMV Bld Auto 9.0 9.0-12.7 fL LAB 771-6([facility]) nRBC # Bld Auto <0.01 <0.01 k/uL Performed By: #### 15688-0 # ### [facility] CLIA [id number] [address] [place] [address] [place] 25(OH)D3 [facility] Collected: 08/07/19 11:32 AM Status: F Source: [facility] Order Comment: Specimen Type : BLOOD SPECIMEN Ordering Facility: [facility] Address: [address] [place] [address] TYPE CODE TESTS RESULT OUT OF RANGE REFERENCE UNITS LAB 1988-06(LOINC) 25(OH)D3 SerP-nc 35.5 31.0-80.0 ng/mL Result Comment: Classificati on of 25 [place] Vitamin D status: Deficiency/Insufficiency: < or = 30 ng/ml. Sufficiency/Optimal Levels: 31-80 ng/mL Toxicity: > 100 ng/mL. Test performed by chemiluminescent immunoassay. Performed By: #### 1988-06 ## ## [facility] CLIA [id number] [address] [place] [address] [place] [address] [place] US CAROTID ARTERIES [facility] Observed: 07/23/2024 8:01 AM Status: F Source: [facility] Non-Invasive Vascular [facility] Carotid Duplex Bilateral/Complete Date of service/time: 07/23/2024 8:01:50 AM Name: MRS. PRISCILLA RAMOS Date of : 1955 Age: 69 years Gender: F Clinical Indication Dizziness. TECHNIQUE -------- A carotid duplex ultrasound examination was performed, including grayscale imaging and color Doppler and spectral Doppler examination of the below mentioned arteries. FINDINGS -------- RIGHT SIDE Common carotid artery: Origin: PSV: 143 cm/s. EDV: 22 cm/s. Proximal: PSV: 134 cm/s. EDV: 24 cm/s. Mid: PSV: 103 cm/s. EDV: 22 cm/s. Distal: PSV: 85 cm/s. EDV: 20 cm/s. Internal carotid artery: Origin: PSV: 63 cm/s. EDV: 15 cm/s. Proximal: PSV: 55 cm/s. EDV: 16 cm/s. Mid: PSV: 87 cm/s. EDV: 33 cm/s. Distal: PSV: 70 cm/s. EDV: 20 cm/s. ICA/CCA Ratio: 0.7 External carotid artery: Proximal: PSV: 97 cm/s. EDV: 15 cm/s. Subclavian artery: Origin: PSV: 164 cm/s. EDV: 10 cm/s. Innominate artery: PSV: 127 cm/s. EDV: 17 cm/s. Vertebral artery: PSV: 59 cm/s. EDV: 14 cm/s. LEFT SIDE Common carotid artery: Proximal: PSV: 122 cm/s. EDV: 21 cm/s. Mid: PSV: 118 cm/s. EDV: 24 cm/s. Distal: PSV: 115 cm/s. EDV: 27 cm/s. Internal carotid artery: Origin: PSV: 98 cm/s. EDV: 23 cm/s. Proximal: PSV: 91 cm/s. EDV: 25 cm/s. Mid: PSV: 82 cm/s. EDV: 24 cm/s. Distal: PSV: 95 cm/s. EDV: 25 cm/s. ICA/CCA Ratio: 0.9 External carotid artery: Proximal: PSV: 116 cm/s. EDV: 17 cm/s. Subclavian artery: Proximal: PSV: 230 cm/s. EDV: 0 cm/s. Vertebral artery: PSV: 55 cm/s. EDV: 12 cm/s. IMPRESSION Please note: the new carotid interpretation criteria are used as recommended by [employer]. RIGHT SIDE Common carotid artery: Patent. Internal carotid artery: Normal study. Vertebral artery: Patent and antegrade flow noted. Innominate artery: Patent. Subclavian artery: Patent. LEFT SIDE Common carotid artery: Patent. Internal carotid artery: Normal study. Vertebral artery: Patent and antegrade flow noted. Subclavian artery: Patent. Technologist: Kirsten Rodriguez T Ordering physician: EMILEE OCNDON Interpreting physician: BRENDA Caceres DO Final CC [facility] Image : [id number] See Link below for Image PVR LEG [facility] Observed: 07/23/2024 7:46 AM Status: F Source: [facility] Non-Invasive [facility] Lower Extremity Arterial Physiology Study Bilateral/Complete Date of service/time: 07/23/2024 7:46:31 AM Name: MRS. PRISCILLA RAMOS Date of : 1955 Age: 69 years Gender: F Clinical Indication Pain in leg. TECHNIQUE -------- An arterial physiological examination was performed, including measurement of blood pressures using continuous wave Doppler and recording of plethysmographic with or without Doppler waveforms at the below-mentioned limb segments. FINDINGS -------- RIGHT SIDE AT REST Right Doppler Waveforms Dorsalis pedis: Multiphasic. Post tibial: Multiphasic. Right Pressures Brachial: 129 mmHg High thigh: greater than 255 mmHg Non-compressible arteries. Low thigh: greater than 255 mmHg Non-compressible arteries. Calf: 160 mmHg Ankle dorsalis pedis: 153 mmHg BRETT: 1.10 Ankle posterior tibial: 179 mmHg BRETT: 1.29 Right PVR Waveforms High thigh: Normal. Low thigh: Normal. Calf: Normal. Ankle: Normal. Transmetatarsal: Normal. Digit: Normal. LEFT SIDE AT REST Left Doppler Waveforms Dorsalis pedis: Multiphasic. Post tibial: Multiphasic. Left Pressures Brachial: 139 mmHg High thigh: greater than 255 mmHg Non-compressible arteries. Low thigh: greater than 255 mmHg Non-compressible arteries. Calf: 161 mmHg Ankle dorsalis pedis: 156 mmHg BRETT: 1.12 Ankle posterior tibial: 170 mmHg BRETT: 1.22 Left PVR Waveforms High thigh: Normal. Low thigh: Normal. Calf: Normal. Ankle: Normal. Transmetatarsal: Normal. Digit: Normal. IMPRESSION RIGHT SIDE Resting right ankle brachial index: 1.29 Normal ankle brachial index at rest in the right leg. Right ankle: Normal at rest. LEFT SIDE Resting left ankle brachial index: 1.22 Normal ankle brachial index at rest in the left leg. Left ankle: Normal at rest. Technologist: Kirsten Rodriguez RVT Ordering physician: EMILEE CONDON Interpreting physician: BRENDA Caceres DO Final CC [facility] Image : [id number] See Link below for Image PROGRESS Observed: 07/20/2024 11:02 AM Status: COMPLETED Source: [facility] ID: [id number] Author: BECKI CEBALLOS RD Service: ? Author Type: Registered Dietitian Type: Progress Notes Filed: 07/20/2024 11:43 Note Text: Nutrition Therapy Initial Assessment Nutrition Diagnosis: Overweight/obesity, [...] intake with tameka such as Cronometer or eRepublikdiary aiming for 1500 calories; OK to track [...] old fashioned or steel cut oats; use Storage [employer] milk, Protein drink, ground Flax seed; All [...] intake with tameka such as Cronometer or eRepublikdiary aiming for 1500 calories; OK to track 2-3 x per week. Nutrition Monitoring AND Evaluation: 1-2 lb weight loss per week Need for Follow up: 46 weeks Patient presents for initial MNT as relates to class 3 obesity Body mass index is 44.26 kg/m?. 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 Other medical issues MERLIN using BiPaP, Dyslipidemia, HTN, CAD. Weight has [...] (266 lb) Body mass index is 44.26 kg/m?. Resting Metabolic Rate: 1731 Malnutrition Screening Significant [...] limitations affecting learning: None Referred/Supervised by: Kristin YODER Billing Type: Initial Assess/15 min 3 units SIGNATURE: Becki Ceballos RD PATIENT NAME: Priscilla Ramos DATE: July 20, 2024 TIME: 11:04 AM CNCNPATED Observed: 07/20/2024 11:00 AM Status: COMPLETED Source: [facility] Education (NUTRWS) PRISCILLA RAMOS ([id number]) 1955 F Date Time Provider Department 07/20/24 11:00 AM BECKI CEBALLOS NUTRWS Reason for Visit: Assessment [673] Patient Education [91] Primary Visit Diagnosis:Obesity, Class III, BMI 40-49.9 (morbid obesity) ([facility]) [E66.01] Other Visit Diagnosis:Dietary counseling [Z71.3] During your visit today, we recorded the following information about you: Weight Height 120.7 kg 1.651 m Allergies As of Date: 07/20/2024 (No Known Allergies) Date Reviewed: 07/20/2024 Reviewed by: Becki Ceballos RD - Fully Assessed Prescriptions as of 07/20/2024 - sulfaSALAzine (AZULFIDINE) 500 mg tablet 500mg once/day x1 week, then 500mg twice/day x1 wk, then 500mg every morning AND 1000mg every evening thereafter - gabapentin (NEURONTIN) 400 mg capsule Take 2 capsule 60-90 minutes before bedtime. - acetaminophen (TYLENOL ARTHRITIS PAIN) 650 mg CR tablet Take 1,300 mg by mouth once daily. - levothyroxine (SYNTHROID) 25 mcg tablet Take 1 tablet by mouth once daily. - rosuvastatin (CRESTOR) 5 mg tablet Take 1 tablet by mouth every Saturday, Saturday, and Saturday. - hydroCHLOROthiazide 25 mg tablet Take 1 tablet by mouth every afternoon. - acetaminophen (TYLENOL EXTRA STRENGTH) 500 mg tablet Take 1,000 mg by mouth every 8 hours as needed for pain. - colestipol (COLESTID) 1 gram tablet Take 1-2 tablets by mouth once daily. As directed - diclofenac (VOLTAREN ARTHRITIS PAIN) 1 % topical gel Apply 2 g to affected area four times daily as needed (wrist pain). - BIPAP - losartan (COZAAR) 100 mg tablet Take 100 mg by mouth once daily. - aspirin 81 mg chewable tablet Take 81 mg by mouth once daily. - ubidecarenone Q-10 (COENZYME Q-10) 10 mg cap Take 100 mg by mouth two times a day. - hyperimmune colostrum, bovine 200 mg tab Take 2 tablets by mouth twice daily. - Ca/D3/mag ox/zinc/coping machine assembler/nicholas/bor (CALCIUM 600-D3 PLUS, MAG-ZINC, ORAL) - turmeric/turmeric ext/pepr ext (TURMERIC-TURMERIC EXT-PEPPER) 900-100-5 mg cap - CPAP Bipap 17/13 cm H2O, Heat Humidity, suitable mask, Lif[employer] supplies, opt Chinstrap, G47.33. - cholecalciferol (VITAMIN D3) 2,000 unit tablet Take 2,000 Units by mouth once daily. - FLUoxetine HCl (PROZAC) 40 mg capsule Take 1 capsule by mouth once daily. (Dr. Garcia) - CYANOCOBALAMIN, VITAMIN B-12, (VITAMIN B-12 ORAL) Take by mouth. - buPROPion XL (WELLBUTRIN XL) 150 mg 24 hr tablet Take one(1) tablet daily. - Biotin (NAIL-EX) 2,500 mcg ORAL Tab Take 1,000 mcg by mouth once daily. - DAILY VITAMIN TAB Take one(1) tablet daily. Meds Comments as of 04/13/2023: 04/13/23: Amlodipine stopped and taking HCTZ now. Ginny Haq RN Encounter Status:Closed by BECKI CEBALLOS on 07/20/24 PROGRESS Observed: 07/10/2024 10:11 AM Status: COMPLETED Source: [facility] ID: [id number] Author: EMILEE CONDON MD Service: ? Author Type: Physician Type: Progress Notes Filed: 07/10/2024 11:21 Note Text: This note was created using Loud3rriter. Subjective Priscilla Ramos is a 69 year old female. Patient presents with: Hospital F/U SUBJECTIVE: Priscilla Ramos is a 69 year old year old lady here today for hospital follow up appointment for review of medical conditions. Priscilla is a 69-year-old female with a history of HTN, hypercholesterolemia, and MERLIN, presenting for follow-up after a recent hospitalization [...] report her blood pressure readings to her certified marine mechanic's office today. Priscilla also reports experiencing leg swelling, pain, and numbness, for which she has been using support stockings with some relief. She had carotid and peripheral artery studies done approximately 2 years ago, which were normal. She expresses a desire for a carotid Doppler study for further evaluation. She has a history of MERLIN and uses a BiPAP machine managed by Dr. Boateng. 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 She has an upcoming appointment with a supervisor home energy consultant to address her weight gain and high glucose levels. She is interested in participating in a weight loss study program. Her current medications include losartan 100 mg daily, rosuvastatin taken on Saturday, Saturday, and Saturday, and Wellbutrin. She has not yet started taking sulfasalazine, which was recently prescribed by her coin teller, Dr. Alfredo. She occasionally takes colestipol for [...] twice/day x1 wk, then 500mg every morning AND 1000mg every evening thereafter gabapentin (NEURONTIN) 400 [...] 2 tablets by mouth twice daily. Ca/D3/mag ox/zinc/coping machine assembler/nicholas/bor (CALCIUM 600-D3 PLUS, MAG-ZINC, ORAL) turmeric/turmeric ext/pepr [...] lb 15.9 oz) SpO2 96% BMI 44.10 kg/m? Last 5 Encounter Wt Readings: Date: Wt: 07/10/2024 120.2 kg (264 lb 15.9 oz) 07/07/2024 122 kg (268 lb 15.4 oz) 06/26/2024 122 kg (269 lb) 06/15/2024 122.7 kg (270 lb 8.1 oz) 03/31/2024 122.2 kg (269 lb 6.4 oz) No waist measurement recorded Estimated body mass index is 44.1 kg/m? as calculated from the following: Height [...] Continue monitoring blood pressure daily; follow-up with certified marine mechanic Dr. Cristian Coffman in August. # Peripheral [...] - Current weight 264 lbs, BMI 40.2 kg/m?. - Discussed importance of weight management; patient has lost 4 lbs since last visit. - Referred to supervisor home energy consultant for dietary counseling. - Encouraged regular physical activity; discussed potential benefits of aquatic exercise. - Patient expressed interest in participating in a weight management study. I spent a total of 44 minutes on the date of the service which included preparing to see the patient, [id number] patient care, completing clinical documentation, obtaining and/or reviewing separately obtained history, performing a medically appropriate examination, counseling and educating the patient/family/caregiver, ordering medications, tests, or procedures, independently interpreting results (not separately reported), and communicating results to the patient/family/caregiver. Emilee Condon MD CNOV Observed: 07/10/2024 10:00 AM Status: COMPLETED Source: [facility] Office Visit (INTMWS) PRISCILLA RAMOS ([id number]) 1955 F Date Time Provider Department 07/10/24 10:00 AM EMILEE CONDON INTMWS During your visit today, we recorded the following information about you: Pulse Respiration Blood pressure Weight 90/minute 18/minute 137/73 120.2 kg Emilee Condon MD 07/10/2024 11:21 AM Signed This note was created using Loud3rriter. Subjective Priscilla Ramos is a 69 year old female. Patient presents with: Hospital F/U SUBJECTIVE: Priscilla Ramos is a 69 year old year old lady here today for hospital follow up appointment for review of medical conditions. Priscilla is a 69-year-old female with a history of HTN, hypercholesterolemia, and MERLIN, presenting for follow-up after a recent hospitalization [...] report her blood pressure readings to her certified marine mechanic's office today. Priscilla also reports experiencing leg swelling, pain, and numbness, for which she has been using support stockings with some relief. She had carotid and peripheral artery studies done approximately 2 years ago, which were normal. She expresses a desire for a carotid Doppler study for further evaluation. She has a history of MERLIN and uses a BiPAP machine managed by Dr. Boateng. 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 She has an upcoming appointment with a supervisor home energy consultant to address her weight gain and high glucose levels. She is interested in participating in a weight loss study program. Her current medications include losartan 100 mg daily, rosuvastatin taken on Saturday, Saturday, and Saturday, and Wellbutrin. She has not yet started taking sulfasalazine, which was recently prescribed by her coin teller, Dr. Alfredo. She occasionally takes colestipol for [...] twice/day x1 wk, then 500mg every morning AND 1000mg every evening thereafter gabapentin (NEURONTIN) 400 [...] 2 tablets by mouth twice daily. Ca/D3/mag ox/zinc/coping machine assembler/nicholas/bor (CALCIUM 600-D3 PLUS, MAG-ZINC, ORAL) turmeric/turmeric ext/pepr [...] lb 15.9 oz) SpO2 96% BMI 44.10 kg/m? Last 5 Encounter Wt Readings: Date: Wt: 07/10/2024 120.2 kg (264 lb 15.9 oz) 07/07/2024 122 kg (268 lb 15.4 oz) 06/26/2024 122 kg (269 lb) 06/15/2024 122.7 kg (270 lb 8.1 oz) 03/31/2024 122.2 kg (269 lb 6.4 oz) No waist measurement recorded Estimated body mass index is 44.1 kg/m? as calculated from the following: Height [...] Continue monitoring blood pressure daily; follow-up with certified marine mechanic Dr. Cristian Coffman in August. # Peripheral [...] - Current weight 264 lbs, BMI 40.2 kg/m?. - Discussed importance of weight management; patient has lost 4 lbs since last visit. - Referred to supervisor home energy consultant for dietary counseling. - Encouraged regular physical activity; discussed potential benefits of aquatic exercise. - Patient expressed interest in participating in a weight management study. I spent a total of 44 minutes on the date of the service which included preparing to see the patient, [id number] patient care, completing clinical documentation, obtaining and/or reviewing separately obtained history, performing a medically appropriate examination, counseling and educating the patient/family/caregiver, ordering medications, tests, or procedures, independently interpreting results (not separately reported), and communicating results to the patient/family/caregiver. MD Russell Leigh Liza D, MD 07/10/2024 11:21 AM Signed - Continue taking half a pill of Hydrochlorothiazide daily. - Monitor your blood pressure daily and report the readings to your certified marine mechanic's office. - Drink 8 cups of water daily; avoid excessive water intake to prevent low sodium levels. - Referral for carotid Doppler ultrasound scheduled; complete the test as scheduled. - Referral for peripheral arterial Doppler ultrasound scheduled; complete the test as scheduled. - Follow up with Cristian Coffman in August. - Next wellness visit with your primary care physician is scheduled for December. Allergies As of Date: 07/10/2024 (No Known Allergies) Date Reviewed: 07/10/2024 Reviewed by: Marychuy Petit LPN - Fully Assessed Reason for Visit: Hospital F/U [57] Cmt: [facility] 06/30/2024 Primary Visit Diagnosis:Hyponatremia [E87.1] Other Visit Diagnoses:Episodic lightheadedness [R42] Primary hypertension [I10] Peripheral vascular disease (HCC) [I73.9] Class 3 severe obesity due to excess calories with body mass index (BMI) of 40.0 to 44.9 in adult, unspecified whether serious comorbidity present (HCC) [E66.813, E66.01, Z68.41] Order(s):US CAROTID ARTERIES [facility] [[id number]] Order #: [id number] FUTURE PVR LEG [facility] [[id number]] Order #: [id number] FUTURE Prescriptions as of 07/10/2024 - sulfaSALAzine (AZULFIDINE) 500 mg tablet 500mg once/day x1 week, then 500mg twice/day x1 wk, then 500mg every morning AND 1000mg every evening thereafter - gabapentin (NEURONTIN) 400 mg capsule Take 2 capsule 60-90 minutes before bedtime. - acetaminophen (TYLENOL ARTHRITIS PAIN) 650 mg CR tablet Take 1,300 mg by mouth once daily. - levothyroxine (SYNTHROID) 25 mcg tablet Take 1 tablet by mouth once daily. - rosuvastatin (CRESTOR) 5 mg tablet Take 1 tablet by mouth every Saturday, Saturday, and Saturday. - hydroCHLOROthiazide 25 mg tablet Take 1 tablet by mouth every afternoon. - acetaminophen (TYLENOL EXTRA STRENGTH) 500 mg tablet Take 1,000 mg by mouth every 8 hours as needed for pain. - colestipol (COLESTID) 1 gram tablet Take 1-2 tablets by mouth once daily. As directed - diclofenac (VOLTAREN ARTHRITIS PAIN) 1 % topical gel Apply 2 g to affected area four times daily as needed (wrist pain). - BIPAP - losartan (COZAAR) 100 mg tablet Take 100 mg by mouth once daily. - aspirin 81 mg chewable tablet Take 81 mg by mouth once daily. - ubidecarenone Q-10 (COENZYME Q-10) 10 mg cap Take 100 mg by mouth two times a day. - hyperimmune colostrum, bovine 200 mg tab Take 2 tablets by mouth twice daily. - Ca/D3/mag ox/zinc/coping machine assembler/nicholas/bor (CALCIUM 600-D3 PLUS, MAG-ZINC, ORAL) - turmeric/turmeric ext/pepr ext (TURMERIC-TURMERIC EXT-PEPPER) 900-100-5 mg cap - CPAP Bipap 17/13 cm H2O, Heat Humidity, suitable mask, [employer] supplies, opt Chinstrap, G47.33. - cholecalciferol (VITAMIN D3) 2,000 unit tablet Take 2,000 Units by mouth once daily. - FLUoxetine HCl (PROZAC) 40 mg capsule Take 1 capsule by mouth once daily. (Dr. Garcia) - CYANOCOBALAMIN, VITAMIN B-12, (VITAMIN B-12 ORAL) Take by mouth. - buPROPion XL (WELLBUTRIN XL) 150 mg 24 hr tablet Take one(1) tablet daily. - Biotin (NAIL-EX) 2,500 mcg ORAL Tab Take 1,000 mcg by mouth once daily. - DAILY VITAMIN TAB Take one(1) tablet daily. Meds Comments as of 04/13/2023: 04/13/23: Amlodipine stopped and taking HCTZ now. Ginny Haq robotics systems engineer notes this encounter COLESTIPOL 1 GRAM TABLET >> Emilee Condon MD 07/10/2024 11:13 AM >> EMILEE CONDON SatJul 10, 2024 11:13 AM Rarely needs Problem List As Of Date 07/10/2024 Noted Resolved Fibromyalgia [M79.7] DYSTHYMIC DISORDER [F34.1] Palpitations [R00.2] 11/23/2006 01/29/2014 Dyslipidemia [E78.5] 11/25/2006 Osteopenia [M85.80] 12/14/2010 Arthrosis [M19.90] 12/14/2010 Dysmetabolic syndrome [E88.810] 10/07/2012 Obstructive sleep apnea treated with bilevel po*09/09/2013 Insomnia [G47.00] 09/09/2013 Elevated antinuclear antibody (KELTON) [...] 07/25/2022 CAD (coronary artery disease) [I25.10] 07/25/2022 Depression, recurrent (HCC) [F33.9] 12/16/2022 Intermittent claudication (HCC) [I73.9] 12/16/2022 Acute back pain with sciatica, left [M54.42] 02/07/2023 Lumbar radiculopathy [M54.16] 02/25/2024 Other instructions from your clinician: - Continue taking half a pill of Hydrochlorothiazide daily. - Monitor your blood pressure daily and report the readings to your certified marine mechanic's office. - Drink 8 cups of water daily; avoid excessive water intake to prevent low sodium levels. - Referral for carotid Doppler ultrasound scheduled; complete the test as scheduled. - Referral for peripheral arterial Doppler ultrasound scheduled; complete the test as scheduled. - Follow up with Cristian Coffman in August. - Next wellness visit with your primary care physician is scheduled for December. Level of Service: OFFICE/OUTPATIENT ESTABLISHED [facility] 40 MIN [01712] Additional E/M codes: VISIT CPLX INHERENT EANDM ASSOC WITH MED * Encounter Status:Closed by EMILEE CONDON on 07/10/24 JEN Observed: 07/07/2024 1:40 PM Status: COMPLETED Source: [facility] Office Visit (AIME) PRISCILLA RAMOS ([id number]) 1955 F Date Time Provider Department 07/07/24 1:40 PM HONEY ALFREDO During your visit today, we recorded the following information about you: Temperature Pulse Blood pressure Weight 97.2 degrees 102/minute 138/84 122 kg Height 1.651 m Honey Alfredo MD 07/07/2024 1:57 PM Signed On 07/07/2024, I had the pleasure of evaluating Priscilla Ramos in a follow-up [facility] Rheumatology appointment for inflammatory arthritis. HPI: To review, Priscilla Ramos is a 69 year old female (goes by Estelita) - With longstanding fibromyalgia for several years, diagnosed sometime in the mid-to-late 90s. - In , had a R TKA [...] was seeing spine. - After August visit, AJ explained for which she wanted more time to consider - Feb US with minimal active synovitis of various bilateral hand joints - Today, reports she has had some bad times with the arthritis. Not in a bad place right now. 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 Ca/D3/mag ox/zinc/coping machine assembler/nichoals/bor (CALCIUM 600-D3 PLUS, MAG-ZINC, ORAL) turmeric/turmeric ext/pepr [...] No Family History SOCIAL HISTORY: Lives in [place]. 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 3 grandchildren Tobacco use: None Alcohol use: 2-3 glasses of wine/day Drug use: None PHYSICAL EXAM: VITALS: Blood pressure 138/84, pulse 102, temperature 36.2 ?C (97.2 ?F), temperature source Temporal, height 165.1 cm (5' [...] 8 - 15 mmol/L 12 eGFR >=60 mL/min/1.73m? 95 WBC 3.70 - 11.00 k/uL 5.81 [...] (H) 26 (H) Component Latest Ref Rng AND Units 08/21/2014 KELTON Negative Positive (A) KELTON [...] in 3-4 weeks. Notify of results via [employer] 2. Generalized osteoarthritis: Hands, spine, knee s/p [...] Completed the covid vaccination series in July, modern - Advised to continue follow-up with PCP for routine health maintenance and malignancy screening Follow-up in 6 months with Prince and 12 months with me. Thank you for allowing me to participate in the care of your patient. MD Mone Esquivel Shailey, MD 07/07/2024 1:46 PM Signed Start sulfasalazine as follows: Take 1 tablet (500mg) once/day x1 week, then 1 tablet twice daily (500mg twice daily) x1 week, then 1 tablet in the morning/2 tablets in the evening (500mg every morning AND 1000mg every evening) thereafter __ Sulfasalazine monitoring [...] you'd prefer this switch at that time). Allergies As of Date: 07/07/2024 (No Known Allergies) Date Reviewed: 07/07/2024 Reviewed by: Eun Gould MA - Fully Assessed Reason for Visit: Established Patient [175] Primary Visit Diagnosis:Seropositive rheumatoid arthritis (HCC) [M05.9] Other Visit Diagnoses:Inflammatory arthritis [M19.90] Osteoarthritis of multiple joints, unspecified osteoarthritis type [M15.9] Pain in joint, multiple sites [M25.50] Lumbar spondylosis [M47.816] Fibromyalgia [M79.7] Osteoporosis, post menopausal [M81.0] Encounter for long-term (current) use of medications [Z79.899] Order(s):sulfaSALAzine (AZULFIDINE) 500 mg [id number] once/day x1 week, then 500mg twice/day x1 wk, then 500mg every morning AND 1000mg every evening thereafterDisp: 90 tabletRfl: 0 CREATININE BLD [SQCRET] Order #: [id number] STANDING ALANINE AMINOTRANSFERASE / SGPT [SQALT] Order #: [id number] STANDING ASPARTATE AMINOTRANSFERASE/SGOT [SQAST] Order #: [id number] STANDING COMPLETE BLOOD COUNT [SQCBC] Order #: [id number] STANDING Prescriptions as of 07/07/2024 - sulfaSALAzine (AZULFIDINE) 500 mg tablet 500mg once/day x1 week, then 500mg twice/day x1 wk, then 500mg every morning AND 1000mg every evening thereafter - gabapentin (NEURONTIN) 400 mg capsule Take 2 capsule 60-90 minutes before bedtime. - acetaminophen (TYLENOL ARTHRITIS PAIN) 650 mg CR tablet Take 1,300 mg by mouth once daily. - levothyroxine (SYNTHROID) 25 mcg tablet Take 1 tablet by mouth once daily. - rosuvastatin (CRESTOR) 5 mg tablet Take 1 tablet by mouth every Saturday, Saturday, and Saturday. - hydroCHLOROthiazide 25 mg tablet Take 1 tablet by mouth every afternoon. - acetaminophen (TYLENOL EXTRA STRENGTH) 500 mg tablet Take 1,000 mg by mouth every 8 hours as needed for pain. - colestipol (COLESTID) 1 gram tablet Take 1-2 tablets by mouth once daily. As directed - diclofenac (VOLTAREN ARTHRITIS PAIN) 1 % topical gel Apply 2 g to affected area four times daily as needed (wrist pain). - BIPAP - losartan (COZAAR) 100 mg tablet Take 100 mg by mouth once daily. - aspirin 81 mg chewable tablet Take 81 mg by mouth once daily. - ubidecarenone Q-10 (COENZYME Q-10) 10 mg cap Take 100 mg by mouth two times a day. - hyperimmune colostrum, bovine 200 mg tab Take 2 tablets by mouth twice daily. - Ca/D3/mag ox/zinc/coping machine assembler/nicholas/bor (CALCIUM 600-D3 PLUS, MAG-ZINC, ORAL) - turmeric/turmeric ext/pepr ext (TURMERIC-TURMERIC EXT-PEPPER) 900-100-5 mg cap - CPAP Bipap 17/13 cm H2O, Heat Humidity, suitable mask, [employer] supplies, opt Chinstrap, G47.33. - cholecalciferol (VITAMIN D3) 2,000 unit tablet Take 2,000 Units by mouth once daily. - FLUoxetine HCl (PROZAC) 40 mg capsule Take 1 capsule by mouth once daily. (Dr. Garcia) - CYANOCOBALAMIN, VITAMIN B-12, (VITAMIN B-12 ORAL) Take by mouth. - buPROPion XL (WELLBUTRIN XL) 150 mg 24 hr tablet Take one(1) tablet daily. - Biotin (NAIL-EX) 2,500 mcg ORAL Tab Take 1,000 mcg by mouth once daily. - DAILY VITAMIN TAB Take one(1) tablet daily. Meds Comments as of 04/13/2023: 04/13/23: Amlodipine stopped and taking HCTZ now. Ginny Haq RN Problem List As Of Date 07/07/2024 Noted Resolved Fibromyalgia [M79.7] DYSTHYMIC DISORDER [F34.1] Palpitations [R00.2] 11/23/2006 01/29/2014 Dyslipidemia [E78.5] 11/25/2006 Osteopenia [M85.80] 12/14/2010 Arthrosis [M19.90] 12/14/2010 Dysmetabolic syndrome [E88.810] 10/07/2012 Obstructive sleep apnea treated with bilevel po*09/09/2013 Insomnia [G47.00] 09/09/2013 Elevated antinuclear antibody (KELTON) [...] 07/25/2022 CAD (coronary artery disease) [I25.10] 07/25/2022 Depression, recurrent (HCC) [F33.9] 12/16/2022 Intermittent claudication (HCC) [I73.9] 12/16/2022 Acute back pain with sciatica, left [M54.42] 02/07/2023 Lumbar radiculopathy [M54.16] 02/25/2024 Other instructions from your clinician: Start sulfasalazine as follows: Take 1 tablet (500mg) once/day x1 week, then 1 tablet twice daily (500mg twice daily) x1 week, then 1 tablet in the morning/2 tablets in the evening (500mg every morning AND 1000mg every evening) thereafter __ Sulfasalazine monitoring [...] you'd prefer this switch at that time). Prescriptions ordered this encounter Disp Refills Start End SULFASALAZINE 500 MG TABLET 90 t* 0 07/07/2024 Simg once/day x1 week, then 500mg twice/day x1 wk, then 500mg every morning AND 1000mg every evening thereafter Disposition: Return in about 1 year (around 07/07/2025). Follow-up and Disposition History for Encounter Date Provider Department Center 07/07/2024 [id number]-FICCTHONEY ALFREDO [facility] Letter Text Encounter Status:Closed by HONEY ALFREDO on 07/07/24 PROGRESS Observed: 07/07/2024 1:30 PM Status: COMPLETED Source: [facility] ID: [id number] Author: HONEY ALFREDO MD Service: ? Author Type: Physician Type: Progress Notes Filed: 07/07/2024 13:57 Note Text: On 07/07/2024, I had the pleasure of evaluating Priscilla Ramos in a follow-up [facility] Rheumatology appointment for inflammatory arthritis. HPI: To review, Priscilla Ramos is a 69 year old female (goes by Estelita) - With longstanding fibromyalgia for several years, diagnosed sometime in the mid-to-late s. - In , had a R TKA [...] was seeing spine. - After August visit, AJ explained for which she wanted more time to consider - Feb US with minimal active synovitis of various bilateral hand joints - Today, reports she has had some bad times with the arthritis. Not in a bad place right now. 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 Ca/D3/mag ox/zinc/coping machine assembler/nicholas/bor (CALCIUM 600-D3 PLUS, MAG-ZINC, ORAL) turmeric/turmeric ext/pepr [...] No Family History SOCIAL HISTORY: Lives in [place]. 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 3 grandchildren Tobacco use: None Alcohol use: 2-3 glasses of wine/day Drug use: None PHYSICAL EXAM: VITALS: Blood pressure 138/84, pulse 102, temperature 36.2 ?C (97.2 ?F), temperature source Temporal, height 165.1 cm (5' [...] 8 - 15 mmol/L 12 eGFR >=60 mL/min/1.73m? 95 WBC 3.70 - 11.00 k/uL 5.81 [...] (H) 26 (H) Component Latest Ref Rng AND Units 08/21/2014 KELTON Negative Positive (A) KELTON [...] in 3-4 weeks. Notify of results via [employer] 2. Generalized osteoarthritis: Hands, spine, knee s/p [...] Completed the covid vaccination series in July, modern - Advised to continue follow-up with PCP for routine health maintenance and malignancy screening Follow-up in 6 months with Prince and 12 months with me. Thank you for allowing me to participate in the care of your patient. Honey Alfredo MD CNOV Observed: 06/26/2024 10:20 AM Status: COMPLETED Source: [facility] Office Visit (NEMOWS) PRISCILLA RAMOS ([id number]) 1955 F Date Time Provider Department 06/26/24 10:20 AM KIT BOATENG JR During your visit today, we recorded the following information about you: Pulse Blood pressure Weight 82/minute 136/83 122 kg Angella Hernandez LPN 06/26/2024 12:16 PM Signed Kit Boateng Jr., MD 06/26/2024 12:16 PM Signed ESTABLISHED PATIENT VISIT CHIEF COMPLAINT: Follow Up HISTORY OF PRESENT ILLNESS: Priscilla Ramos is a 69 year old female, BMI 44.76 kg/m2 with a PMH significant for and per last office visit of 12/27/23: 1. MERLIN on CPAP - ICD9: 327.23, ICD10: G47.33 [...] V85.41, ICD10: E66.01, Z68.41 Contributing factor for MERLIN. Encouraged weight loss. D/w pt bariatric evaluation [...] (no units) Date Value 11/15/2023 Negative MEDICATIONS: - acetaminophen (TYLENOL ARTHRITIS PAIN) 650 mg CR tablet Take 1,300 mg by mouth once daily. - levothyroxine (SYNTHROID) 25 mcg tablet Take 1 tablet by mouth once daily. - gabapentin (NEURONTIN) 400 mg capsule Take 2 capsule 60-90 minutes before bedtime. - rosuvastatin (CRESTOR) 5 mg tablet Take 1 tablet by mouth every Saturday, Saturday, and Saturday. - hydroCHLOROthiazide 25 mg tablet Take 1 tablet by mouth every afternoon. - acetaminophen (TYLENOL EXTRA STRENGTH) 500 mg tablet Take 1,000 mg by mouth every 8 hours as needed for pain. - colestipol (COLESTID) 1 gram tablet Take 1-2 tablets by mouth once daily. As directed - diclofenac (VOLTAREN ARTHRITIS PAIN) 1 % topical gel Apply 2 g to affected area four times daily as needed (wrist pain). - BIPAP - losartan (COZAAR) 100 mg tablet Take 100 mg by mouth once daily. - aspirin 81 mg chewable tablet Take 81 mg by mouth once daily. - ubidecarenone Q-10 (COENZYME Q-10) 10 mg cap Take 100 mg by mouth two times a day. - hyperimmune colostrum, bovine 200 mg tab Take 2 tablets by mouth twice daily. - Ca/D3/mag ox/zinc/coping machine assembler/nicholas/bor (CALCIUM 600-D3 PLUS, MAG-ZINC, ORAL) - turmeric/turmeric ext/pepr ext (TURMERIC-TURMERIC EXT-PEPPER) 900-100-5 mg cap - CPAP Bipap 17/13 cm H2O, Heat Humidity, suitable mask, Lif[employer] supplies, opt Chinstrap, G47.33. - cholecalciferol (VITAMIN D3) 2,000 unit tablet Take 2,000 Units by mouth once daily. - FLUoxetine HCl (PROZAC) 40 mg capsule Take 1 capsule by mouth once daily. (Dr. Garcia) - CYANOCOBALAMIN, VITAMIN B-12, (VITAMIN B-12 ORAL) Take by mouth. - buPROPion XL (WELLBUTRIN XL) 150 mg 24 hr tablet Take one(1) tablet daily. - Biotin (NAIL-EX) 2,500 mcg ORAL Tab Take 1,000 mcg by mouth once daily. - DAILY VITAMIN TAB Take one(1) tablet daily. - acetaminophen (TYLENOL 8 HOUR ORAL) Take by mouth. (Patient not taking: Reported on 06/15/2024) HISTORIES PAST MEDICAL HISTORY Diagnosis Date - Abnormal mammogram, unspecified 06/27/2006 - Acquired hypothyroidism 07/04/2017 - CAD (coronary artery disease) - CAD (coronary artery disease) 07/25/2022 - Calculus of gallbladder with chronic cholecystitis without obstruction 08/01/2015 - Corns and callosities 01/24/2014 - Diarrhea - Dysphagia 05/27/2015 feeling like food sits in bottom of esophagus if eats heavier than usual meal - Dysthymic disorder Depression (non-psychotic) - Elevated antinuclear antibody (KELTON) level 08/25/2014 - Essential hypertension - HTN (hypertension) 07/25/2022 - Internal hemorrhoids without mention of complication - Left wrist sprain 07/2022 - Myalgia and myositis, unspecified FIBROMYALGIA - Obesity, unspecified Obesity - Obstructive sleep apnea DME [place] - Osteoarthritis of multiple joints - PAIN LEG (Right) 02/20/2005 - Temporomandibular joint disorders, unspecified 11/23/2006 FAMILY HISTORY Problem Relation Age of Onset - Diabetes Mother late in life at 75 - Stroke Mother x3 - Cancer Father myeloma (from immunesuppressants) at age 80 of chf and perf. bowel - other (ESRD) Father had sudden renal failure; had kidney transplant at 68yo - Thyroid Brother - Hypertension Son - No Known Problems Son - Anesthesia Problems No Family History - Blood Clots No Family History - Clotting Disorder No Family History SOCIAL HISTORY Social History Tobacco Use - Smoking status: Never - Smokeless tobacco: Never Vaping Use - Vaping status: Never Used Substance Use Topics - Alcohol use: Yes Alcohol/week: 18.0 standard drinks of alcohol Types: 18 Glasses of wine per week Comment: wine with supper - Drug use: No PHYSICAL EXAMINATION Wt 122 kg (269 lb) BMI 44.76 kg/m? GENERAL EXAM: General appearance: NAD, pleasant. HEENT: [...] arm swing. Assessment and Plan: ASSESSMENT/PLAN: 1. MERLIN on CPAP - ICD9: 327.23, ICD10: G47.33 [...] due to other meds, polypharmacy and obesity. Kit Boateng MD Medical Decision Making: Problems: Moderate: 2+ stable chronic illnesses Data: Unique test result(s) reviewed: 1 Risk: Moderate: Drug management Medical Decision Making Level: 4 - Moderate I spent a total of 30 minutes on the date of the service which included preparing to see the patient, [id number] patient care, completing clinical documentation, obtaining and/or reviewing separately obtained history, performing a medically appropriate examination, counseling and educating the patient/family/caregiver, ordering medications, tests, or procedures, and communicating results to the patient/family/caregiver. PDMP website checked and validated. All prescriptions have been APPROPRIATELY filled. No suspicious activity was identified. 06/26/2024 by Kit Boateng MD Allergies As of Date: 06/26/2024 (No Known Allergies) Date Reviewed: 06/26/2024 Reviewed by: Kit Boateng Jr., MD - Fully Assessed Reason for Visit: Established Patient [175] Cmt: MERLIN, RLS- c/o still being tired throughout the day Primary Visit Diagnosis:MERLIN on CPAP [G47.33] Other Visit Diagnoses:Class 3 severe obesity with body mass index (BMI) of 40.0 to 44.9 in adult, unspecified obesity type, unspecified whether serious comorbidity present (HCC) [E66.813, E66.01, Z68.41] RLS (restless legs syndrome) [G25.81] Chronic insomnia [F51.04] Fibromyalgia [M79.7] Malaise and fatigue [R53.81, R53.83] Order(s):CONSULT TO [facility] [[id number]] Order #: [id number]: 1 gabapentin (NEURONTIN) 400 mg capsuleTake 2 capsule 60-90 minutes before bedtime.Disp: 180 capsuleRfl: 1 Prescriptions as of 06/26/2024 - gabapentin (NEURONTIN) 400 mg capsule Take 2 capsule 60-90 minutes before bedtime. - acetaminophen (TYLENOL ARTHRITIS PAIN) 650 mg CR tablet Take 1,300 mg by mouth once daily. - levothyroxine (SYNTHROID) 25 mcg tablet Take 1 tablet by mouth once daily. - rosuvastatin (CRESTOR) 5 mg tablet Take 1 tablet by mouth every Saturday, Saturday, and Saturday. - hydroCHLOROthiazide 25 mg tablet Take 1 tablet by mouth every afternoon. - acetaminophen (TYLENOL EXTRA STRENGTH) 500 mg tablet Take 1,000 mg by mouth every 8 hours as needed for pain. - colestipol (COLESTID) 1 gram tablet Take 1-2 tablets by mouth once daily. As directed - diclofenac (VOLTAREN ARTHRITIS PAIN) 1 % topical gel Apply 2 g to affected area four times daily as needed (wrist pain). - BIPAP - losartan (COZAAR) 100 mg tablet Take 100 mg by mouth once daily. - aspirin 81 mg chewable tablet Take 81 mg by mouth once daily. - ubidecarenone Q-10 (COENZYME Q-10) 10 mg cap Take 100 mg by mouth two times a day. - hyperimmune colostrum, bovine 200 mg tab Take 2 tablets by mouth twice daily. - Ca/D3/mag ox/zinc/coping machine assembler/nicholas/bor (CALCIUM 600-D3 PLUS, MAG-ZINC, ORAL) - turmeric/turmeric ext/pepr ext (TURMERIC-TURMERIC EXT-PEPPER) 900-100-5 mg cap - CPAP Bipap 17/13 cm H2O, Heat Humidity, suitable mask, [employer] supplies, opt Chinstrap, G47.33. - cholecalciferol (VITAMIN D3) 2,000 unit tablet Take 2,000 Units by mouth once daily. - FLUoxetine HCl (PROZAC) 40 mg capsule Take 1 capsule by mouth once daily. (Dr. Garcia) - CYANOCOBALAMIN, VITAMIN B-12, (VITAMIN B-12 ORAL) Take by mouth. - buPROPion XL (WELLBUTRIN XL) 150 mg 24 hr tablet Take one(1) tablet daily. - Biotin (NAIL-EX) 2,500 mcg ORAL Tab Take 1,000 mcg by mouth once daily. - DAILY VITAMIN TAB Take one(1) tablet daily. Meds Comments as of 04/13/2023: 04/13/23: Amlodipine stopped and taking HCTZ now. Ginny Haq RN Problem List As Of Date 06/26/2024 Noted Resolved Fibromyalgia [M79.7] DYSTHYMIC DISORDER [F34.1] Palpitations [R00.2] 11/23/2006 01/29/2014 Dyslipidemia [E78.5] 11/25/2006 Osteopenia [M85.80] 12/14/2010 Arthrosis [M19.90] 12/14/2010 Dysmetabolic syndrome [E88.810] 10/07/2012 Obstructive sleep apnea treated with bilevel po*09/09/2013 Insomnia [G47.00] 09/09/2013 Elevated antinuclear antibody (KELTON) [...] 07/25/2022 CAD (coronary artery disease) [I25.10] 07/25/2022 Depression, recurrent (HCC) [F33.9] 12/16/2022 Intermittent claudication (HCC) [I73.9] 12/16/2022 Acute back pain with sciatica, left [M54.42] 02/07/2023 Lumbar radiculopathy [M54.16] 02/25/2024 Prescriptions ordered this encounter Disp Refills Start End GABAPENTIN 400 MG CAPSULE 180 * 1 06/26/2024 09/24/2024 Sig: Take 2 capsule 60-90 minutes before bedtime. Medications Discontinued During This Encounter Prescriptions - acetaminophen (TYLENOL 8 HOUR ORAL) (Discontinued) Reported on 06/15/2024 - gabapentin (NEURONTIN) 400 mg capsule (Discontinued) Take 2 capsule 60-90 minutes before bedtime. Disposition: Return in about 6 months (around 12/27/2024) for Iker Wong CNP. Follow-up and Disposition History for Encounter Date Provider Department Center 06/26/2024 [id number] BOATENG JR [facility] Encounter Status:Closed by KIT BOATENG on 06/26/24 PROGRESS Observed: 06/26/2024 10:11 AM Status: COMPLETED [facility] ID: [id number] Author: KIT BOATENG JR, MD Service: ? Author Type: Physician Type: Progress Notes Filed: 06/26/2024 12:16 Note Text: ESTABLISHED PATIENT VISIT CHIEF COMPLAINT: Follow Up HISTORY OF PRESENT ILLNESS: Priscilla Ramos is a 69 year old female, BMI 44.76 kg/m2 with a PMH significant for and per last office visit of 12/27/23: 1. MERLIN on CPAP - ICD9: 327.23, ICD10: G47.33 [...] V85.41, ICD10: E66.01, Z68.41 Contributing factor for MERLIN. Encouraged weight loss. D/w pt bariatric evaluation [...] (no units) Date Value 11/15/2023 Negative MEDICATIONS: - acetaminophen (TYLENOL ARTHRITIS PAIN) 650 mg CR tablet Take 1,300 mg by mouth once daily. - levothyroxine (SYNTHROID) 25 mcg tablet Take 1 tablet by mouth once daily. - gabapentin (NEURONTIN) 400 mg capsule Take 2 capsule 60-90 minutes before bedtime. - rosuvastatin (CRESTOR) 5 mg tablet Take 1 tablet by mouth every Saturday, Saturday, and Saturday. - hydroCHLOROthiazide 25 mg tablet Take 1 tablet by mouth every afternoon. - acetaminophen (TYLENOL EXTRA STRENGTH) 500 mg tablet Take 1,000 mg by mouth every 8 hours as needed for pain. - colestipol (COLESTID) 1 gram tablet Take 1-2 tablets by mouth once daily. As directed - diclofenac (VOLTAREN ARTHRITIS PAIN) 1 % topical gel Apply 2 g to affected area four times daily as needed (wrist pain). - BIPAP - losartan (COZAAR) 100 mg tablet Take 100 mg by mouth once daily. - aspirin 81 mg chewable tablet Take 81 mg by mouth once daily. - ubidecarenone Q-10 (COENZYME Q-10) 10 mg cap Take 100 mg by mouth two times a day. - hyperimmune colostrum, bovine 200 mg tab Take 2 tablets by mouth twice daily. - Ca/D3/mag ox/zinc/coping machine assembler/nicholas/bor (CALCIUM 600-D3 PLUS, MAG-ZINC, ORAL) - turmeric/turmeric ext/pepr ext (TURMERIC-TURMERIC EXT-PEPPER) 900-100-5 mg cap - CPAP Bipap 17/13 cm H2O, Heat Humidity, suitable mask, [employer] supplies, opt Chinstrap, G47.33. - cholecalciferol (VITAMIN D3) 2,000 unit tablet Take 2,000 Units by mouth once daily. - FLUoxetine HCl (PROZAC) 40 mg capsule Take 1 capsule by mouth once daily. (Dr. Garcia) - CYANOCOBALAMIN, VITAMIN B-12, (VITAMIN B-12 ORAL) Take by mouth. - buPROPion XL (WELLBUTRIN XL) 150 mg 24 hr tablet Take one(1) tablet daily. - Biotin (NAIL-EX) 2,500 mcg ORAL Tab Take 1,000 mcg by mouth once daily. - DAILY VITAMIN TAB Take one(1) tablet daily. - acetaminophen (TYLENOL 8 HOUR ORAL) Take by mouth. (Patient not taking: Reported on 06/15/2024) HISTORIES PAST MEDICAL HISTORY Diagnosis Date - Abnormal mammogram, unspecified 06/27/2006 - Acquired hypothyroidism 07/04/2017 - CAD (coronary artery disease) - CAD (coronary artery disease) 07/25/2022 - Calculus of gallbladder with chronic cholecystitis without obstruction 08/01/2015 - Corns and callosities 01/24/2014 - Diarrhea - Dysphagia 05/27/2015 feeling like food sits in bottom of esophagus if eats heavier than usual meal - Dysthymic disorder Depression (non-psychotic) - Elevated antinuclear antibody (KELTON) level 08/25/2014 - Essential hypertension - HTN (hypertension) 07/25/2022 - Internal hemorrhoids without mention of complication - Left wrist sprain 07/2022 - Myalgia and myositis, unspecified FIBROMYALGIA - Obesity, unspecified Obesity - Obstructive sleep apnea DME [place] - Osteoarthritis of multiple joints - PAIN LEG (Right) 02/20/2005 - Temporomandibular joint disorders, unspecified 11/23/2006 FAMILY HISTORY Problem Relation Age of Onset - Diabetes Mother late in life at 75 - Stroke Mother x3 - Cancer Father myeloma (from immunesuppressants) at age 80 of chf and perf. bowel - other (ESRD) Father had sudden renal failure; had kidney transplant at 68yo - Thyroid Brother - Hypertension Son - No Known Problems Son - Anesthesia Problems No Family History - Blood Clots No Family History - Clotting Disorder No Family History SOCIAL HISTORY Social History Tobacco Use - Smoking status: Never - Smokeless tobacco: Never Vaping Use - Vaping status: Never Used Substance Use Topics - Alcohol use: Yes Alcohol/week: 18.0 standard drinks of alcohol Types: 18 Glasses of wine per week Comment: wine with supper - Drug use: No PHYSICAL EXAMINATION Wt 122 kg (269 lb) BMI 44.76 kg/m? GENERAL EXAM: General appearance: NAD, pleasant. HEENT: [...] (5/5) bilaterally (throughout extremities x4). Coordination: FNF, NNIA, HTS intact. No tremors. Sensation: LT, vibration, temperature intact throughout. No evidence of neglect. Gait: Stable with normal stride and arm swing. Assessment and Plan: ASSESSMENT/PLAN: 1. MERLIN on CPAP - ICD9: 327.23, ICD10: G47.33 [...] due to other meds, polypharmacy and obesity. Kit Boateng MD Medical Decision Making: Problems: Moderate: 2+ stable chronic illnesses Data: Unique test result(s) reviewed: 1 Risk: Moderate: Drug management Medical Decision Making Level: 4 - Moderate I spent a total of 30 minutes on the date of the service which included preparing to see the patient, [id number] patient care, completing clinical documentation, obtaining and/or reviewing separately obtained history, performing a medically appropriate examination, counseling and educating the patient/family/caregiver, ordering medications, tests, or procedures, and communicating results to the patient/family/caregiver. PDMP website checked and validated. All prescriptions have been APPROPRIATELY filled. No suspicious activity was identified. 06/26/2024 by Kit Boateng MD PROGRESS Observed: 06/26/2024 10:05 AM Status: COMPLETED Source: [facility] HNO ID: [id number] Author: ANGELLA HERNANDEZ LPN Service: ? Author Type: LICENSED NURSE Type: Progress Notes Filed: 06/26/2024 12:16 Note Text: PROGRESS Observed: 06/15/2024 9:55 AM Status: COMPLETED Source: [facility] HNO ID: [id number] Author: EMILEE CONDON MD Service: ? Author Type: Physician Type: Progress Notes Filed: 07/10/2024 10:51 Note Text: This note was created using Loud3rriter. Subjective Priscilla Ramos is a 69 year [...] to start sulfasalazine, as recommended by her coin teller. She expresses concerns about potential side effects and plans to discuss this further with her coin teller in June. She reports increased pain since March, particularly during the [place] season. She received a spinal injection, which [...] 2 tablets by mouth twice daily. Ca/D3/mag ox/zinc/coping machine assembler/nicholas/bor (CALCIUM 600-D3 PLUS, MAG-ZINC, ORAL) turmeric/turmeric ext/pepr [...] lb 8.1 oz) SpO2 98% BMI 45.01 kg/m? Last 5 Encounter Wt Readings: Date: Wt: 06/15/2024 122.7 kg (270 lb 8.1 oz) 03/31/2024 122.2 kg (269 lb 6.4 oz) 02/21/2024 118.5 kg (261 lb 3.9 oz) 01/30/2024 119.7 kg (263 lb 14.3 oz) 01/17/2024 119.7 kg (264 lb) No waist measurement recorded Estimated body mass index is 45.01 kg/m? as calculated from the following: Height [...] Judgment normal. Latest Ref Rng 07/11/2023 11/15/2023 03/23/202406/10/2024 Protein, Total 6.3 - 8.0 g/dL 7.1 [...] - 15 mmol/L 9 12 eGFR >=60 mL/min/1.73m? 95 95 WBC 3.70 - 11.00 k/uL [...] patient to discuss alternative treatment options with coin teller Dr. Alfredo during the upcoming appointment on [...] - Patient to schedule follow-up appointment with certified driver examiner Dr. Talavera to discuss the need for [...] 77% predicted. - Scheduled follow-up with cardiology ([facility]) in August with NORMA Coffman [...] the date of the service which included [id number] patient care, completing clinical documentation, obtaining and/or reviewing separately obtained history, performing a medically appropriate examination, counseling and educating the patient/family/caregiver, ordering medications, tests, or procedures, independently interpreting results (not separately reported), and communicating results to the patient/family/caregiver. Emilee Condon MD CNOV Observed: 06/15/2024 9:40 AM Status: COMPLETED Source: [facility] Office Visit (INTMWS) PRISCILLA RAMOS ([id number]) 1955 F Date Time Provider Department 06/15/24 9:40 AM EMILEE CONDON INTMWS During your visit today, we recorded the following information about you: Pulse Blood pressure Weight 91/minute 128/78 122.7 kg Emilee Condon MD 07/10/2024 10:51 AM Signed This note was created using Vaughn Burtonter. Subjective Priscilla Ramos is a 69 year [...] to start sulfasalazine, as recommended by her coin teller. She expresses concerns about potential side effects and plans to discuss this further with her coin teller in June. She reports increased pain since [...] 2 tablets by mouth twice daily. Ca/D3/mag ox/zinc/coping machine assembler/nicholas/bor (CALCIUM 600-D3 PLUS, MAG-ZINC, ORAL) turmeric/turmeric ext/pepr [...] lb 8.1 oz) SpO2 98% BMI 45.01 kg/m? Last 5 Encounter Wt Readings: Date: Wt: 06/15/2024 122.7 kg (270 lb 8.1 oz) 03/31/2024 122.2 kg (269 lb 6.4 oz) 02/21/2024 118.5 kg (261 lb 3.9 oz) 01/30/2024 119.7 kg (263 lb 14.3 oz) 01/17/2024 119.7 kg (264 lb) No waist measurement recorded Estimated body mass index is 45.01 kg/m? as calculated from the following: Height [...] - 15 mmol/L 9 12 eGFR >=60 mL/min/1.73m? 95 95 WBC 3.70 - 11.00 k/uL [...] patient to discuss alternative treatment options with coin teller Dr. Alfredo during the upcoming appointment on [...] - Patient to schedule follow-up appointment with certified driver examiner Dr. Talavera to discuss the need for [...] 77% predicted. - Scheduled follow-up with cardiology ([facility]) in August with NORMA Coffman [...] the date of the service which included [id number] patient care, completing clinical documentation, obtaining and/or reviewing separately obtained history, performing a medically appropriate examination, counseling and educating the patient/family/caregiver, ordering medications, tests, or procedures, independently interpreting results (not separately reported), and communicating results to the patient/family/caregiver. MD Russell Leigh Liza D, MD 06/15/2024 10:36 AM Signed - Continue taking Tylenol 650 mg, two tablets in the morning as needed for arthritis pain. This dosage is safe as it is an 8-hour sustained release formulation. - Review the information on sulfasalazine sent by your coin teller on March 25. You can find it in your NeuroTronik messages. Discuss any concerns or questions about this medication with your coin teller at your upcoming appointment on July 07. [...] potatoes. - Schedule an appointment with your certified driver examiner, Dr. Talavera, to discuss the need for a follow-up thyroid ultrasound. - Wear mild compression stockings to help reduce leg swelling. Consider brands like [facility], Dr. Mcelroy, copper socks, or diabetic socks. - Elevate your legs when sitting or lying down to help reduce swelling. - Stay hydrated by drinking plenty of water throughout the day. - Schedule a mammogram after November 15, as your last one was on November 14. - Follow up with your certified marine mechanic, Dr. Coffman, in August to address any concerns about shortness of breath and to discuss the need for further cardiac evaluation. - Next follow-up appointment in 6 months. Allergies As of Date: 06/15/2024 (No Known Allergies) Date Reviewed: 06/15/2024 Reviewed by: Roxana Mariano LPN - Fully Assessed Reason for Visit: F/U 6 months [1177] Cmt: discuss lab results complaints of fatigue all the time Primary Visit Diagnosis:IFG (impaired fasting glucose) [R73.01] Other Visit Diagnoses:Rheumatoid arthritis involving multiple sites with positive rheumatoid factor (HCC) [M05.79] Primary hypertension [I10] Acquired hypothyroidism [E03.9] Spinal stenosis of lumbar region with neurogenic claudication [M48.062] GARCIA (dyspnea on exertion) [R06.09] Other fatigue [R53.83] Encounter for screening mammogram for breast cancer [Z12.31] Encounter for immunization [Z23] Class 3 severe obesity due to excess calories with body mass index (BMI) of 45.0 to 49.9 in adult, unspecified whether serious comorbidity present (HCC) [E66.813, Z68.42, E66.01] Order(s):HEMOGLOBIN A1C (POC) [0315959] Order #: [id number]. #:[id number] PRINTED PHARMACY INSTRUCTIONS [2594690] Order #: [id number]: 1 ADVANCE CARE PLAN DISCUSSION [9906858] Order #: [id number]: 1 HEMOGLOBIN A1C [[id number]] Order #: [id number] FUTURE SIL SCREENING W JOSE [7113503] Order #: [id number] FUTURE Prescriptions as of 07/10/2024 - sulfaSALAzine (AZULFIDINE) 500 mg tablet 500mg once/day x1 week, then 500mg twice/day x1 wk, then 500mg every morning AND 1000mg every evening thereafter - gabapentin (NEURONTIN) 400 mg capsule Take 2 capsule 60-90 minutes before bedtime. - acetaminophen (TYLENOL ARTHRITIS PAIN) 650 mg CR tablet Take 1,300 mg by mouth once daily. - levothyroxine (SYNTHROID) 25 mcg tablet Take 1 tablet by mouth once daily. - rosuvastatin (CRESTOR) 5 mg tablet Take 1 tablet by mouth every Saturday, Saturday, and Saturday. - hydroCHLOROthiazide 25 mg tablet Take 1 tablet by mouth every afternoon. - acetaminophen (TYLENOL EXTRA STRENGTH) 500 mg tablet Take 1,000 mg by mouth every 8 hours as needed for pain. - colestipol (COLESTID) 1 gram tablet Take 1-2 tablets by mouth once daily. As directed - diclofenac (VOLTAREN ARTHRITIS PAIN) 1 % topical gel Apply 2 g to affected area four times daily as needed (wrist pain). - BIPAP - losartan (COZAAR) 100 mg tablet Take 100 mg by mouth once daily. - aspirin 81 mg chewable tablet Take 81 mg by mouth once daily. - ubidecarenone Q-10 (COENZYME Q-10) 10 mg cap Take 100 mg by mouth two times a day. - hyperimmune colostrum, bovine 200 mg tab Take 2 tablets by mouth twice daily. - Ca/D3/mag ox/zinc/coping machine assembler/nicholas/bor (CALCIUM 600-D3 PLUS, MAG-ZINC, ORAL) - turmeric/turmeric ext/pepr ext (TURMERIC-TURMERIC EXT-PEPPER) 900-100-5 mg cap - CPAP Bipap 17/13 cm H2O, Heat Humidity, suitable mask, [employer] supplies, opt Chinstrap, G47.33. - cholecalciferol (VITAMIN D3) 2,000 unit tablet Take 2,000 Units by mouth once daily. - FLUoxetine HCl (PROZAC) 40 mg capsule Take 1 capsule by mouth once daily. (Dr. Garcia) - CYANOCOBALAMIN, VITAMIN B-12, (VITAMIN B-12 ORAL) Take by mouth. - buPROPion XL (WELLBUTRIN XL) 150 mg 24 hr tablet Take one(1) tablet daily. - Biotin (NAIL-EX) 2,500 mcg ORAL Tab Take 1,000 mcg by mouth once daily. - DAILY VITAMIN TAB Take one(1) tablet daily. Meds Comments as of 04/13/2023: 04/13/23: Amlodipine stopped and taking HCTZ now. Ginny Haq RN Problem List As Of Date 06/15/2024 Noted Resolved Fibromyalgia [M79.7] DYSTHYMIC DISORDER [F34.1] Palpitations [R00.2] 11/23/2006 01/29/2014 Dyslipidemia [E78.5] 11/25/2006 Osteopenia [M85.80] 12/14/2010 Arthrosis [M19.90] 12/14/2010 Dysmetabolic syndrome [E88.810] 10/07/2012 Obstructive sleep apnea treated with bilevel po*09/09/2013 Insomnia [G47.00] 09/09/2013 Elevated antinuclear antibody (KELTON) [...] 07/25/2022 CAD (coronary artery disease) [I25.10] 07/25/2022 Depression, recurrent (HCC) [F33.9] 12/16/2022 Intermittent claudication (HCC) [I73.9] 12/16/2022 Acute back pain with sciatica, left [M54.42] 02/07/2023 Lumbar radiculopathy [M54.16] 02/25/2024 Other instructions from your clinician: - Continue taking Tylenol 650 mg, two tablets in the morning as needed for arthritis pain. This dosage is safe as it is an 8-hour sustained release formulation. - Review the information on sulfasalazine sent by your coin teller on March 25. You can find it in your NeuroTronik messages. Discuss any concerns or questions about this medication with your coin teller at your upcoming appointment on July 07. [...] potatoes. - Schedule an appointment with your certified driver examiner, Dr. Talavera, to discuss the need for a follow-up thyroid ultrasound. - Wear mild compression stockings to help reduce leg swelling. Consider brands like [facility], Dr. Crespos, copper socks, or diabetic socks. - Elevate your legs when sitting or lying down to help reduce swelling. - Stay hydrated by drinking plenty of water throughout the day. - Schedule a mammogram after November 15, as your last one was on November 14. - Follow up with your certified marine mechanic, Dr. Coffman, in August to address any concerns about shortness of breath and to discuss the need for further cardiac evaluation. - Next follow-up appointment in 6 months. Level of Service: OFFICE/OUTPATIENT ESTABLISHED [facility] 40 MIN [02212] Additional E/M codes: VISIT CPLX INHERENT EANDM ASSOC WITH MED * Disposition: Return in about 6 months (around 12/13/2024) for 6 months follow up, add next one in 2025. Follow-up and Disposition History for Encounter Date Provider Department Center 06/15/2024 [id number] CONDON [facility] Encounter Status:Closed by EMILEE CONDON on 07/10/24 CBC PNL BLD AUTO Collected: 5 9:58 AM Status: F Source: [facility] Order Comment: Specimen Type : BLOOD SPECIMEN Ordering Facility: [facility] Address: [address] [place] [address] TYPE CODE TESTS RESULT OUT OF RANGE REFERENCE UNITS LAB 6690-2(LOINC) WBC # Bld Auto 5.81 3.70-11.00 k/uL LAB 789-8(LOINC) RBC # Bld Auto 4.42 3.90-5.20 m/uL LAB 718-7(LOINC) Hgb Bld-mCnc 13.8 11.5-15.5 g/dL LAB 4544-3(LOINC) Hct VFr Bld Auto 41.9 36.0-46.0 % LAB 787-2(LOINC) MCV RBC Auto 94.8 80.0-100.0 fL LAB 785-6([facility]) MCH RBC Qn Auto 31.2 26.0-34.0 pg LAB 786-4([facility]) MCHC RBC Auto-mCnc 32.9 30.5-36.0 g/dL LAB 89894-7([facility]) RDW RBC-Rto 12.8 11.5-15.0 % LAB 777-3([facility]) Platelet # Bld Auto 313 150-400 k/uL LAB 16262-5([facility]) PMV Bld Auto 9.0 9.0-12.7 fL LAB 771-6([facility]) nRBC # Bld Auto <0.01 <0.01 k/uL Performed By: #### 29175-7 # ### [facility] CLIA [id number] [address] [place] [address] [place] LIPID 1996 PNL SERPL Collected: 025 9:58 AM Status: F Source: [facility] Order Comment: Specimen Type : BLOOD SPECIMEN Ordering Facility: [facility] Address: [address] [place] [address] TYPE CODE TESTS RESULT OUT OF RANGE REFERENCE UNITS LAB 2093-3([facility]) Cholest SerPl-mCnc 198 <200 mg/dL Result Comment: <200 mg/dL, Desirable 200-239 mg/dL, Borderline high >239 mg/dL, High LAB 2571-8([facility]) Trigl SerPl-mCnc 114 <150 mg/dL Result Comment: <150 mg/dL, Normal 150-199 mg/dL, Borderline high 200-499 mg/dL, High >499 mg/dL, Very high LAB 2085-9([facility]) HDLc SerPl-mCnc 75 >39 mg/dL Result Comment: 40-59 mg/dL, Acceptable >59 mg/dL, High: Negative risk factor for coronary heart disease <40 mg/dL, Low: Positive risk factor for coronary heart disease LAB 85934-6([facility]) NonHDLc SerPl-mCnc 123 <130 mg/dL Result Comment: <130 mg/dL, Optimal 130-159 mg/dL, Near optimal/above optimal 160-189 mg/dL, Borderline high 190-219 mg/dL, High >219 mg/dL, Very high Secondary prevention optimal non HDL Cholesterol levels are recommended to be <100 mg/dL LAB FT FASTING TIME 12 hrs LAB 04792-8(LOINC) VLDLc SerPl Calc-mCnc 23 <30 mg/dL LAB 9830-1(INC) Cholest/HDLc SerPl 2.64 <5.10 LAB 2089-1(INC) LDLc SerPl-mCnc 100 High <100 mg/dL Result Comment: <100 mg/dL, Optimal 100-129 mg/dL, Near optimal/above optimal 130-159 mg/dL, Borderline high 160-189 mg/dL, High >189 mg/dL, Very high Secondary prevention optimal LDL Cholesterol levels are recommended to be < 70 mg/dL LAB 29717-0(LOINC) LDLc/HDLc SerPl 1.33 <2.54 Result Comment: Reference: 1. National Cholesterol Education Program ATP III Guideline At-A-Glance Quick Desk Reference: National Heart, Lung, and Blood [place]. National Institutes of Health. 2001: NIH Publication No. 01-3305. 2. An International Atherosclerosis Society position paper: global recommendations for the management of dyslipidemia: executive summary, Atherosclerosis. 2014: 232(2):410-413. Performed By: #### 45060-7 # ### [facility] CLIA [id number] [address] [place] [address] [place] #### 59839-9 #### [facility] CLIA [id number] [address] [place] [address] [place] [facility] CLIA [id number] [address] [place] [address] [place] RHEUMATOID FACT SERPL-ACNC Collected: 06/10/2024 9:58 AM Status: F Source: [facility] Order Comment: Specimen Type : BLOOD SPECIMEN Ordering Facility: [facility] Address: [address] [place] [address] TYPE CODE TESTS RESULT OUT OF RANGE REFERENCE UNITS LAB 86374-8([facility]) Rheumatoid fact SerPl-aCnc 26 High <16 IU/mL Performed By: #### 48780-0 # ### [facility] CLIA [id number] [address] [place], [place] [address] [place] #### 07898-0 #### [facility] CLIA [id number] [address] [place], [place] [address] [place] [facility] CLIA [id number] [address] [place] [address] [place] COMP METAB 2000 PNL SERPL Collected: 9:58 AM Status: F Source: [facility] Order Comment: Specimen Type : BLOOD SPECIMEN Ordering Facility: [facility] Address: [address] [place] [address] TYPE CODE TESTS RESULT OUT OF RANGE REFERENCE UNITS LAB 2885-2(LOINC) Prot SerPl-mCnc 7.2 6.3-8.0 g/dL LAB 1751-7(LOINC) Albumin SerPl-mCnc 4.3 3.9-4.9 g/dL LAB 08014-6(LOINC) Calcium SerPl-mCnc 9.8 8.5-10.2 mg/dL LAB 1975-2(LOINC) Bilirub SerPl-mCnc 0.5 0.2-1.3 mg/dL LAB 6768-6(LOINC) ALP SerPl-cCnc 90 34-123 U/L LAB 1920-8(LOINC) AST SerPl-cCnc 23 13-35 U/L LAB 1742-6(LOINC) ALT SerPl-cCnc 21 7-38 U/L LAB 2345-7(LOINC) Glucose SerPl-mCnc 131 High 74-99 mg/dL Result Comment: The [place] Diabetes Association (ADA) provides guidance for cutoff values for fasting glucose and random glucose. The ADA defines fasting as no caloric intake for at least 8 hours. Fasting plasma glucose results between 100 to 125 mg/dL indicate increased risk for diabetes (prediabetes). Fasting plasma glucose results greater than or equal to 126 mg/dL meet the criteria for diagnosis of diabetes. In the absence of unequivocal hyperglycemia, results should be confirmed by repeat testing. In a patient with classic symptoms of hyperglycemia or hyperglycemic crisis, random plasma glucose results greater than or equal to 200 mg/dL meet the criteria for diagnosis of diabetes. Reference: Standards of Medical Care in Diabetes 2016, [place] Diabetes Association. Diabetes Care. 2016.39(Suppl 1). LAB 3094-0(LOINC) BUN SerPl-mCnc 15 7-21 mg/ dL LAB 2160-0(LOINC) Creat SerPl-mCnc 0.65 0.58-0.96 mg/dL LAB 2951-2(LOINC) Sodium SerPl-sCnc 136 136-144 mmol/L LAB 2823-3(LOINC) Potassium SerPl-sCnc 3.9 3.7-5.1 mmol/L LAB 2075-0(LOINC) Chloride SerPl-sCnc 98 98-107 mmol/L LAB 2027-9(LOINC) CO2 SerPl-sCnc 26 22-30 mmo l/L LAB 69723-3(LOINC) Anion Gap SerPl-sCnc 12 8-15 mmol/L LAB 92609-5(LOINC) Creatinine + eGFR Pnl SerPlBld 95 >=60 mL/min/1 .73m??? Result Comment: Estimated Gl omerular Filtration Rate (eGFR) is calculated using the 2020 CKD-EPI creatinine equation. This equation utilizes serum creatinine, sex, and age as parameters. The creatinine assay has traceable calibration to isotope dilution-mass spectrometry. Refer to KDIGO guidelines for clinical interpretation. In patients with unstable renal function, e.g. those with acute kidney injury, the eGFR may not accurately reflect actual GFR. Performed By: #### 30911-1 # ### [facility] CLIA [id number] [address] [place] [address] [place] URINALYSIS COMPLETE PNL UR Collected: 05/04/2024 4:00 PM Status: F Source: [facility] Order Comment: Specimen Type : URINE SPECIMEN Ordering Facility: [facility] Address: [address] [place] [address] TYPE CODE TESTS RESULT OUT OF RANGE REFERENCE UNITS LAB 5778-6(LOINC) Color Ur Yellow Yellow LAB 22607-7(LOINC) Clarity Spec Clear Clear LAB 5792-7(LOINC) Glucose Ur Strip-mCnc Negative Negative LAB 5770-3(LOINC) Bilirub Ur Ql Strip Negative Negative LAB 2514-8(LOINC) Ketones Ur Strip Negative Negative LAB 5811-5(LOINC) Sp Gr Ur Strip 1.010 1.005-1.030 LAB 5794-3(LOINC) Hgb Ur Ql Strip Negative Negative LAB 5803-2(LOINC) pH Ur Strip 6.0 <8.5 [facility] Prot Ur Strip-mCnc Negative Negative [facility] 5818[facility] Urobilinogen Ur Strip 0.2 EU/dL 0.2-1.0 EU/dL LAB 5802-4(LOINC) Nitrite Ur Ql Strip Negative Negative LAB 5799-2([facility]) Leukocyte esterase Ur Ql Strip Trace Abnormal Negative LAB 5821-4([facility]) WBC #/area UrnS HPF 0-5 /HPF 0-5 /HPF LAB 81049-3([facility]) RBC #/area UrnS HPF 0-2 /HPF 0-2 /HPF LAB 5769-5([facility]) Bacteria #/area UrnS HPF Negative Negative /HPF LAB 5787-7(LOINC) Epi Cells #/area UrnS HPF None Seen /HPF LAB 5796-8([facility]) Hyaline Casts #/area UrnS LPF 0 /LPF 0 /LPF Performed By: #### 15615-0 # ### [facility] CLIA [id number] [address] [place], [place] [address] [place] BACTERIA UR CULT Observed: 05/04/2024 4:00 PM Status: F Source: [facility] ORGANISM ID: 1 <10,000 CFU/ml Normal urogenital kiara Performed By: #### 630-4 ### # [facility] CLIA [id number] [address] [place] [address] [place] PROGRESS Observed: 03/31/2024 2:45 PM Status: COMPLETED Source: [facility] HNO ID: [id number] Author: CLAUDIA BREWSTER PA-C Service: ? Author Type: Physician Oil Tank Car [employer]er Type: Progress Notes Filed: 03/31/2024 14:47 Note Text: This note was created using NoteWriter. Subjective Priscilla Ramos is a 69 year [...] by mouth two times a day.) Ca/D3/mag ox/zinc/coping machine assembler/nicholas/bor (CALCIUM 600-D3 PLUS, MAG-ZINC, ORAL) turmeric/turmeric ext/pepr [...] Objective BP 126/72 Pulse 86 Temp 36.7 ?C (98 ?F) Resp 16 Wt 122.2 kg (269 lb 6.4 oz) SpO2 98% BMI 44.83 kg/m? Physical Exam Vitals reviewed. Constitutional: Appearance: Normal [...] UA DIP, URINE (POC) - URINE CULTURE Claudia Brewster PA-C BACTERIA UR CULT Observed: 03/31/2024 1:26 PM Status: F Source: [facility] CULTURE, URINE: Mixed microbiota, including predominantly: ORGANISM ID: 1 50,000-<100,000 CFU/ml Escherichia coli ORGANISM ID: 1 (ESCHERICHIA COLI) ----- ----- ANTIBIOTIC INTERPRETATION SHAGUFTA STATUS REFERENCE RANGE ----- ----- Ampicillin S 4 F Susceptible <=8 , Intermediate >8 , Resistant >16 Cefazolin S <=4 F Susceptible 0-16 , Intermediate <0 or >16 , Resistant >16 For uncomplicated urinary tract infections, cefazolin results can be used to predict susceptibility or resistance to cephalexin. Ceftriaxone S <=1 F Susceptible <=1 , Intermediate >1 , Resistant >=4 Cefepime S <=1 F Susceptible <=2 , Susceptible-Dose Dependent >2 , Resistant >=16 Ertapenem S <=0.5 F Susceptible <=0.5 , Intermediate >.5 , Resistant >1 Meropenem S <=0.25 F Susceptible <=1 , Intermediate >1 , Resistant >2 Ampicillin/Sulbact S <=2 F Susceptible <=8 , Intermediate >8 , Resistant >16 Piperacillin/Tazobac S <=4 F Susceptible <16 , Susceptible-Dose Dependent >=16 , Resistant >=32 Gentamicin S <=1 F Susceptible <=2 , Intermediate >2 , Resistant >=8 Tobramycin S <=1 F Susceptible <4 , Intermediate >=4 , Resistant >=8 Trimeth sulfameth S <=20 F Susceptible <=40 , Resistant >40 Ciprofloxacin S <=0.25 F Susceptible <0.5 , Intermediate >=.5 , Resistant >=1 Nitrofurantoin S <=16 F Susceptible <=32 , Intermediate >32 , Resistant >64 Performed By: #### 630-4 ### # [facility] GLOIA [id number] [address] [place] [address] [place] [address] [place] CNOV Observed: 03/31/2024 1:15 PM Status: COMPLETED Source: [facility] Office Visit (WSTR) PRISCILLA RAMOS ([id number]) 1955 F Date Time Provider Department 03/31/24 1:15 PM CLAUDIA BREWSTER WSTR During your visit today, we recorded the following information about you: Temperature Pulse Respiration Blood pressure 98 degrees 86/minute 16/minute 126/72 Weight 122.2 kg Claudia Brewster PA-C 03/31/2024 2:47 PM Signed This note was created using Loud3rriter. Subjective Priscilla Ramos is a 69 year [...] by mouth two times a day.) Ca/D3/mag ox/zinc/coping machine assembler/nicholas/bor (CALCIUM 600-D3 PLUS, MAG-ZINC, ORAL) turmeric/turmeric ext/pepr [...] Objective BP 126/72 Pulse 86 Temp 36.7 ?C (98 ?F) Resp 16 Wt 122.2 kg (269 lb 6.4 oz) SpO2 98% BMI 44.83 kg/m? Physical Exam Vitals reviewed. Constitutional: Appearance: Normal [...] UA DIP, URINE (POC) - URINE CULTURE RAYA KimC Allergies As of Date: 03/31/2024 (No Known Allergies) Date Reviewed: 03/31/2024 Reviewed by: Briana Gregory MA - Fully Assessed Reason for Visit: Urinary Frequency [1086] Cmt: burning with urination x 1 day Primary Visit Diagnosis:Acute UTI [N39.0] Order(s):UA DIP, URINE (POC) [4895069] Order #: [id number]. #:[id number] URINE CULTURE [SQURCUL] Order #: [id number]. #:[id number] nitrofurantoin monohydrate and macrocrystal (MACROBID) 100 mg capsuleTake 1 capsule by mouth two times a day with meals for 5 days.Disp: 10 capsuleRfl: 0 Prescriptions as of 03/31/2024 - nitrofurantoin monohydrate and macrocrystal (MACROBID) 100 mg capsule Take 1 capsule by mouth two times a day with meals for 5 days. - traZODone (DESYREL) 50 mg tablet Take 0.5 tablets by mouth daily at bedtime. - gabapentin (NEURONTIN) 400 mg capsule Take 2 capsule 60-90 minutes before bedtime. - rosuvastatin (CRESTOR) 5 mg tablet Take 1 tablet by mouth every Saturday, Saturday, and Saturday. - hydroCHLOROthiazide 25 mg tablet Take 1 tablet by mouth every afternoon. - levothyroxine (SYNTHROID) 25 mcg tablet Take 1 tablet by mouth once daily. - acetaminophen (TYLENOL EXTRA STRENGTH) 500 mg tablet Take 1,000 mg by mouth every 8 hours as needed for pain. - colestipol (COLESTID) 1 gram tablet Take 1-2 tablets by mouth once daily. As directed - diclofenac (VOLTAREN ARTHRITIS PAIN) 1 % topical gel Apply 2 g to affected area four times daily as needed (wrist pain). - acetaminophen (TYLENOL 8 HOUR ORAL) Take by mouth. - BIPAP - losartan (COZAAR) 100 mg tablet Take 100 mg by mouth once daily. - aspirin 81 mg chewable tablet Take 81 mg by mouth once daily. - ubidecarenone Q-10 (COENZYME Q-10) 10 mg cap Take 100 mg by mouth two times a day. - hyperimmune colostrum, bovine 200 mg tab Take 2 tablets by mouth twice daily. - Ca/D3/mag ox/zinc/coping machine assembler/nicholas/bor (CALCIUM 600-D3 PLUS, MAG-ZINC, ORAL) - turmeric/turmeric ext/pepr ext (TURMERIC-TURMERIC EXT-PEPPER) 900-100-5 mg cap - CPAP Bipap 17/13 cm H2O, Heat Humidity, suitable mask, Lifetime supplies, opt Chinstrap, G47.33. - cholecalciferol (VITAMIN D3) 2,000 unit tablet Take 2,000 Units by mouth once daily. - FLUoxetine HCl (PROZAC) 40 mg capsule Take 1 capsule by mouth once daily. (Dr. Garcia) - CYANOCOBALAMIN, VITAMIN B-12, (VITAMIN B-12 ORAL) Take by mouth. - buPROPion XL (WELLBUTRIN XL) 150 mg 24 hr tablet Take one(1) tablet daily. - Biotin (NAIL-EX) 2,500 mcg ORAL Tab Take 1,000 mcg by mouth once daily. - DAILY VITAMIN TAB Take one(1) tablet daily. Meds Comments as of 04/13/2023: 04/13/23: Amlodipine stopped and taking HCTZ now. Ginny Haq RN Problem List As Of Date 03/31/2024 Noted Resolved Fibromyalgia [M79.7] DYSTHYMIC DISORDER [F34.1] Palpitations [R00.2] 11/23/2006 01/29/2014 Dyslipidemia [E78.5] 11/25/2006 Osteopenia [M85.80] 12/14/2010 Arthrosis [M19.90] 12/14/2010 Dysmetabolic syndrome [E88.810] 10/07/2012 Obstructive sleep apnea treated with bilevel po*09/09/2013 Insomnia [G47.00] 09/09/2013 Elevated antinuclear antibody (KELTON) [...] 07/25/2022 CAD (coronary artery disease) [I25.10] 07/25/2022 Depression, recurrent (HCC) [F33.9] 12/16/2022 Intermittent claudication (HCC) [I73.9] 12/16/2022 Acute back pain with sciatica, left [M54.42] 02/07/2023 Lumbar radiculopathy [M54.16] 02/25/2024 Prescriptions ordered this encounter Disp Refills Start End NITROFURANTOIN MONOHYDRATE AND MACROCR* 10 c* 0 03/31/2024 04/05/2024 Route: ORAL Sig: Take 1 capsule by mouth two times a day with meals for 5 days. Encounter Status:Closed by CLAUDIA BREWSTER on 03/31/24 CANDY Observed: 03/31/2024 12:00 AM Status: COMPLETED Source: [facility] Telephone (INTMWS) RACHELPRISCILLA M ([id number]) 1955 F Date Time Provider Department 03/31/24 EMILEE CONDON INTMWS During your visit today, we recorded the following information about you: Jaja Mcconnell RN 03/31/2024 11:21 AM Signed Patient reports she was recently treated for a UTI, and completed AB for this. Reports yesterday started having s/s again: urgency, pain with urination, frequency, dark urine, foul odor. No fever. Reports she is drinking plenty of water. Patient agreeable to same day appt. No openings in pcp triad, and no openings in intm. Patient agreeable to EC for evaluation. Allergies As of Date: 03/31/2024 (No Known Allergies) Date Reviewed: 03/25/2024 Reviewed by: Prince West APRN.LOAD OUT WORKER - Fully Assessed Reason for Visit: Patient Update [1234] Prescriptions as of 03/31/2024 - traZODone (DESYREL) 50 mg tablet Take 0.5 tablets by mouth daily at bedtime. - gabapentin (NEURONTIN) 400 mg capsule Take 2 capsule 60-90 minutes before bedtime. - rosuvastatin (CRESTOR) 5 mg tablet Take 1 tablet by mouth every Saturday, Saturday, and Saturday. - hydroCHLOROthiazide 25 mg tablet Take 1 tablet by mouth every afternoon. - levothyroxine (SYNTHROID) 25 mcg tablet Take 1 tablet by mouth once daily. - acetaminophen (TYLENOL EXTRA STRENGTH) 500 mg tablet Take 1,000 mg by mouth every 8 hours as needed for pain. - colestipol (COLESTID) 1 gram tablet Take 1-2 tablets by mouth once daily. As directed - diclofenac (VOLTAREN ARTHRITIS PAIN) 1 % topical gel Apply 2 g to affected area four times daily as needed (wrist pain). - acetaminophen (TYLENOL 8 HOUR ORAL) Take by mouth. - BIPAP - losartan (COZAAR) 100 mg tablet Take 100 mg by mouth once daily. - aspirin 81 mg chewable tablet Take 81 mg by mouth once daily. - ubidecarenone Q-10 (COENZYME Q-10) 10 mg cap Take 100 mg by mouth two times a day. - hyperimmune colostrum, bovine 200 mg tab Take 2 tablets by mouth twice daily. - Ca/D3/mag ox/zinc/coping machine assembler/nicholas/bor (CALCIUM 600-D3 PLUS, MAG-ZINC, ORAL) - turmeric/turmeric ext/pepr ext (TURMERIC-TURMERIC EXT-PEPPER) 900-100-5 mg cap - CPAP Bipap 17/13 cm H2O, Heat Humidity, suitable mask, Lifetime supplies, opt Chinstrap, G47.33. - cholecalciferol (VITAMIN D3) 2,000 unit tablet Take 2,000 Units by mouth once daily. - FLUoxetine HCl (PROZAC) 40 mg capsule Take 1 capsule by mouth once daily. (Dr. Garcia) - CYANOCOBALAMIN, VITAMIN B-12, (VITAMIN B-12 ORAL) Take by mouth. - buPROPion XL (WELLBUTRIN XL) 150 mg 24 hr tablet Take one(1) tablet daily. - Biotin (NAIL-EX) 2,500 mcg ORAL Tab Take 1,000 mcg by mouth once daily. - DAILY VITAMIN TAB Take one(1) tablet daily. Meds Comments as of 04/13/2023: 04/13/23: Amlodipine stopped and taking HCTZ now. Ginny Haq RN Problem List As Of Date 03/31/2024 Noted Resolved Fibromyalgia [M79.7] DYSTHYMIC DISORDER [F34.1] Palpitations [R00.2] 11/23/2006 01/29/2014 Dyslipidemia [E78.5] 11/25/2006 Osteopenia [M85.80] 12/14/2010 Arthrosis [M19.90] 12/14/2010 Dysmetabolic syndrome [E88.810] 10/07/2012 Obstructive sleep apnea treated with bilevel po*09/09/2013 Insomnia [G47.00] 09/09/2013 Elevated antinuclear antibody (KELTON) [...] 07/25/2022 CAD (coronary artery disease) [I25.10] 07/25/2022 Depression, recurrent (HCC) [F33.9] 12/16/2022 Intermittent claudication (HCC) [I73.9] 12/16/2022 Acute back pain with sciatica, left [M54.42] 02/07/2023 Lumbar radiculopathy [M54.16] 02/25/2024 Encounter Status:Closed by Jaja MCCONNELL on 03/31/24 URINALYSIS, REFLEX MICROSCOPIC Collected: 03/27/2024 11:40 AM Status: F Source: [facility] Order Comment: Specimen Type : URINE SPECIMEN Ordering Facility: [facility] Address: [address] [place] [address] TYPE CODE TESTS RESULT OUT OF RANGE REFERENCE UNITS LAB 5778-6(LOINC) Color Ur Yellow Yellow LAB 47364-8(LOINC) Clarity Spec Clear Clear LAB 5792-7(LOINC) Glucose Ur Strip-mCnc Negative Negative LAB 5770-3(LOINC) Bilirub Ur Ql Strip Negative Negative LAB 2514-8(LOINC) Ketones Ur Strip Negative Negative LAB 5811-5(LOINC) Sp Gr Ur Strip 1.016 1.005-1.030 LAB 5794-3(LOINC) Hgb Ur Ql Strip Negative Negative LAB 5803-2(LOINC) pH Ur Strip 6.5 <8.5 LAB 5804-0(LOINC) Prot Ur Strip-mCnc Negative Negative LAB 5818-0(LOINC) Urobilinogen Ur Strip 0.2 EU/dL 0.2-1.0 EU/dL LAB 5802-4(LOINC) Nitrite Ur Ql Strip Negative Negative LAB 5799-2(LOINC) Leukocyte esterase Ur Ql Strip Negative Negative Performed By: #### [id number] # ### [facility] CLIA [id number] [address] [place] [address] [place] PROGRESS Observed: 03/25/2024 10:30 AM Status: COMPLETED Source: [facility] HNO ID: [id number] Author: PRINCE WEST APRN.LOAD OUT WORKER Service: ? Author Type: Nurse Practitioner Type: Progress Notes Filed: 03/25/2024 10:44 Note Text: Follow up for inflammatory arthritis. HPI: To [...] visit. Either the patient or their legal disability representative has been informed of the risks [...] by mouth two times a day.) Ca/D3/mag ox/zinc/coping machine assembler/nicholas/bor (CALCIUM 600-D3 PLUS, MAG-ZINC, ORAL) turmeric/turmeric ext/pepr [...] No Family History SOCIAL HISTORY: Lives in [place]. 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 3 grandchildren [...] discussed with the patient: Latest Ref Rng 11/15/2023 TB Nil <=8.00 IU/mL 0.02 TB1 [...] Core Ab, Total Negative Negative Latest Ref Rn 07/11/2023 Protein, Total 6.3 - 8.0 g/dL [...] 9 - 18 mmol/L 9 eGFR >=60 mL/min/1.73m? 95 WBC 3.70 - 11.00 k/uL 4.96 [...] 80.0 ng/mL 41.5 Component Latest Ref Rng AND Units 08/21/2014 KELTON Negative Positive (A) KELTON [...] the care of your patient. Prince West APRN.LOAD OUT WORKER PROGRESS Observed: 03/24/2024 6:29 PM Status: COMPLETED Source: [facility] HNO ID: [id number] Author: SANTANA WARD PT Service: ? Author Type: Physical Therapist Type: Progress Notes Filed: 03/24/2024 18:31 Note Text: Episode Visit Count: 5 Therapist That Will Accept/Oversee The Plan Of Care: Santana Ward PT Start of Care Date: 02/25/24 [...] to allow for improved ability to complete director software quality assurance. - Partially MET Stand / Walk without [...] denies any improvements with standing, walking and director software quality assurance. She acknowledges that she has not been [...] : 1410 Session Stop Time : 1445 Santana Ward PT CNTHERAPY Observed: 03/24/2024 2:00 PM Status: COMPLETED Source: [facility] OT/PT/Speech Visit (PTWS) PRISCILLA RAMOS ([id number]) 1955 F Date Time Provider Department 03/24/24 2:00 PM SANTANA WARD PTWS Date Time Provider Department Leonidas 03/24/2024 2:00 PM [id number], BRENT PTWS Colin Toscano Reason for Visit: Physical Therapy [503] PT Discharge [752] Primary Visit Diagnosis:Acute back pain with sciatica, left [M54.42] Other Visit Diagnosis:Lumbar radiculopathy [M54.16] Allergies As of Date: 03/24/2024 (No Known Allergies) Date Reviewed: 02/21/2024 Reviewed by: Kasie Limon APRN.IT RISK ADVISOR - Fully Assessed Prescriptions as of 03/24/2024 - traZODone (DESYREL) 50 mg tablet Take 0.5 tablets by mouth daily at bedtime. - gabapentin (NEURONTIN) 400 mg capsule Take 2 capsule 60-90 minutes before bedtime. - rosuvastatin (CRESTOR) 5 mg tablet Take 1 tablet by mouth every Saturday, Saturday, and Saturday. - hydroCHLOROthiazide 25 mg tablet Take 1 tablet by mouth every afternoon. - levothyroxine (SYNTHROID) 25 mcg tablet Take 1 tablet by mouth once daily. - acetaminophen (TYLENOL EXTRA STRENGTH) 500 mg tablet Take 1,000 mg by mouth every 8 hours as needed for pain. - colestipol (COLESTID) 1 gram tablet Take 1-2 tablets by mouth once daily. As directed - diclofenac (VOLTAREN ARTHRITIS PAIN) 1 % topical gel Apply 2 g to affected area four times daily as needed (wrist pain). - acetaminophen (TYLENOL 8 HOUR ORAL) Take by mouth. - BIPAP - losartan (COZAAR) 100 mg tablet Take 100 mg by mouth once daily. - aspirin 81 mg chewable tablet Take 81 mg by mouth once daily. - ubidecarenone Q-10 (COENZYME Q-10) 10 mg cap Take 100 mg by mouth two times a day. - hyperimmune colostrum, bovine 200 mg tab Take 2 tablets by mouth twice daily. - Ca/D3/mag ox/zinc/coping machine assembler/nicholas/bor (CALCIUM 600-D3 PLUS, MAG-ZINC, ORAL) - turmeric/turmeric ext/pepr ext (TURMERIC-TURMERIC EXT-PEPPER) 900-100-5 mg cap - CPAP Bipap 17/13 cm H2O, Heat Humidity, suitable mask, Lifetime supplies, opt Chinstrap, G47.33. - cholecalciferol (VITAMIN D3) 2,000 unit tablet Take 2,000 Units by mouth once daily. - FLUoxetine HCl (PROZAC) 40 mg capsule Take 1 capsule by mouth once daily. (Dr. Garcia) - CYANOCOBALAMIN, VITAMIN B-12, (VITAMIN B-12 ORAL) Take by mouth. - buPROPion XL (WELLBUTRIN XL) 150 mg 24 hr tablet Take one(1) tablet daily. - Biotin (NAIL-EX) 2,500 mcg ORAL Tab Take 1,000 mcg by mouth once daily. - DAILY VITAMIN TAB Take one(1) tablet daily. Meds Comments as of 04/13/2023: 04/13/23: Amlodipine stopped and taking HCTZ now. Ginny Haq RN URINALYSIS COMPLETE PNL UR Collected: 03/23/2024 12:4 4 PM Status: F Source: [facility] Order Comment: Specimen Type : URINE SPECIMEN Ordering Facility: [facility] Address: [address] [place] [address] TYPE CODE TESTS RESULT OUT OF RANGE REFERENCE UNITS LAB 5778-6(LOINC) Color Ur Yellow Yellow LAB 07496-2(LOINC) Clarity Spec Clear Clear LAB 5792-7(LOINC) Glucose Ur Strip-mCnc Negative Negative LAB 5770-3(LOINC) Bilirub Ur Ql Strip Negative Negative LAB 2514-8(LOINC) Ketones Ur Strip Negative Negative LAB 5811-5(LOINC) Sp Gr Ur Strip 1.017 1.005-1.030 LAB 5794-3(LOINC) Hgb Ur Ql Strip Negative Negative LAB 5803-2(LOINC) pH Ur Strip 6.0 <8.5 LAB 5804-0(LOINC) Prot Ur Strip-mCnc Negative Negative LAB 5818-0(LOINC) Urobilinogen Ur Strip 0.2 EU/dL 0.2-1.0 EU/dL LAB 5802-4(LOINC) Nitrite Ur Ql Strip Negative Negative LAB 5799-2(LOINC) Leukocyte esterase Ur Ql Strip 1+ Abnormal Negative LAB 5821-4(LOINC) WBC #/area UrnS HPF 6-10 /HPF Abnormal 0-5 /HPF LAB 82814-5(INC) RBC #/area UrnS HPF 0-2 /HPF 0-2 /HPF LAB [id number] BACTERIA UL 1176.0 High Negative uL [facility] 5787[facility] Epi Cells #/area UrnS HPF Moderate /HPF LAB 5796-8([facility]) Hyaline Casts #/area UrnS LPF 0 /LPF 0 /LPF Performed By: #### 59645-5 # ### [facility] CLIA [id number] [address] [place] [address] [place] T3FREE SERPL-MCNC Collected: 4 12:44 PM Status: F Source: [facility] Comment: Specimen Type : BLOOD SPECIMEN Ordering Facility: [facility] Address: [address] [place] [address] TYPE CODE TESTS RESULT OUT OF RANGE REFERENCE UNITS LAB 3051-0([facility]) T3Free SerPl-mCnc 3.0 2.3-4.1 pg/mL Performed By: #### 3051-0, 3 016-3, 302-7 #### [facility] CLIA [id number] [address] [place] [address] [place] T4 FREE SERPL-MCNC Collected: 4 12:44 PM Status: F Source: [facility] Comment: Specimen Type : BLOOD SPECIMEN Ordering Facility: [facility] Address: [address] [place] [address] TYPE CODE TESTS RESULT OUT OF RANGE REFERENCE UNITS LAB 3024-7([facility]) T4 Free SerPl-mCnc 1.5 0.9-1.7 ng/dL Performed By: #### 3051-0, 3 016-3, 302-7 #### [facility] CLIA [id number] [address] [place] [address] [place] TSH SERPL-ACNC Collected: 4 12:44 PM Status: F Source: [facility] Order Comment: Specimen Type : BLOOD SPECIMEN Ordering Facility: [facility] Address: [address] [place] [address] TYPE CODE TESTS RESULT OUT OF RANGE REFERENCE UNITS LAB 3016-3(LOINC) TSH SerPl-aCnc 0.959 0.270-4.200 mIU/L Performed By: #### 3051-0, 3 016-3, 3024-7 #### [facility] CLIA [id number] [address] [place] [address] 25(OH)D3 SERPL-MCNC Collected: 03/23/20 24 12:44 PM Status: F Source: [facility] Order Comment: Specimen Type : BLOOD SPECIMEN Ordering Facility: [facility] Address: [address] [place] [address] TYPE CODE TESTS RESULT OUT OF RANGE REFERENCE UNITS LAB 1988-3(LOINC) 25(OH)D3 SerPl-mCnc 36.4 31.0-80.0 ng/mL Result Comment: Classificati on of 25 OH Vitamin D status: Deficiency/Insufficiency: < or = 30 ng/ml. Sufficiency/Optimal Levels: 31-80 ng/mL Toxicity: > 100 ng/mL. Test performed by chemiluminescent immunoassay. Performed By: #### 1989- ## ## [facility] CLIA [id number] [address] [place] [address] [place] US HAND/WRIST SYNOVIAL SCREEN RT Observed: 03/20/2024 2:55 PM Status: F Source: [facility] * * *Final Report* * * DATE [...] Hypertrophy: None. Power Doppler: None. OTHER: None. IMPRESSION: Minimal active synovitis involving the right third PIP, left second and third MCP joints and right wrist. No tenosynovitis of the hand or wrist. Fall Internship: [facility] Transcribe Date/Time: Mar 20 2024 2:56P Dictated by : ERIKA PRASAD MD This examination was interpreted and the report reviewed and electronically signed by: ERIKA PRASAD MD on Mar 20 2024 3:48PM EST [id number] US HAND/WRIST SYNOVIAL SCREEN LT Observed: 03/20/2024 2:00 PM Status: F Source: [facility] * * *Final Report* * * DATE [...] were saved to the permanent image archive. v1-2019 COMPARISON: X-ray 08/28/2023. FINDINGS: RIGHT SIDE: RIGHT [...] Hypertrophy: None. Power Doppler: None. OTHER: None. IMPRESSION: Minimal active synovitis involving the right third PIP, left second and third MCP joints and right wrist. No tenosynovitis of the hand or wrist. [facility] Transcribe Date/Time: Mar 20 2024 2:56P Dictated by : ERIKA PRASAD MD This examination was interpreted and the report reviewed and electronically signed by: ERIKA PRASAD MD on Mar 20 2024 3:48PM EST [id number] PROGRESS Observed: 03/18/2024 2:49 PM Status: COMPLETED Source: [facility] ID: [id number] Author: SANTANA WARD PT Service: ? Author Type: Physical Therapist Type: Progress Notes Filed: 03/18/2024 16:40 Note Text: Episode Visit Count: 4 Therapist That Will Accept/Oversee The Plan Of Care: Santana Ward PT Start of Care Date: 02/25/24 [...] Time : 1447 Session Stop Time : 152 CARLOTA Monae PT CNTHERAPY Observed: 03/18/2024 2:45 PM Status: COMPLETED Source: [facility] OT/PT/Speech Visit (PTWS) PRISCILLA RAMOS ([id number]) 1955 F Date Time Provider Department 03/18/24 2:45 PM ALIZE CONNELL Date Time Provider Department Leonidas 03/18/2024 2:45 PM [id number] CONNELL Reason for Visit: Physical Therapy [503] Primary Visit Diagnosis:Acute back pain with sciatica, left [M54.42] Other Visit Diagnosis:Lumbar radiculopathy [M54.16] Allergies As of Date: 03/18/2024 (No Known Allergies) Date Reviewed: 02/21/2024 Reviewed by: Kasie Limon APRN.IT RISK ADVISOR - Fully Assessed Prescriptions as of 03/18/2024 - traZODone (DESYREL) 50 mg tablet Take 0.5 tablets by mouth daily at bedtime. - gabapentin (NEURONTIN) 400 mg capsule Take 2 capsule 60-90 minutes before bedtime. - rosuvastatin (CRESTOR) 5 mg tablet Take 1 tablet by mouth every Saturday, Saturday, and Saturday. - hydroCHLOROthiazide 25 mg tablet Take 1 tablet by mouth every afternoon. - levothyroxine (SYNTHROID) 25 mcg tablet Take 1 tablet by mouth once daily. - acetaminophen (TYLENOL EXTRA STRENGTH) 500 mg tablet Take 1,000 mg by mouth every 8 hours as needed for pain. - colestipol (COLESTID) 1 gram tablet Take 1-2 tablets by mouth once daily. As directed - diclofenac (VOLTAREN ARTHRITIS PAIN) 1 % topical gel Apply 2 g to affected area four times daily as needed (wrist pain). - acetaminophen (TYLENOL 8 HOUR ORAL) Take by mouth. - BIPAP - losartan (COZAAR) 100 mg tablet Take 100 mg by mouth once daily. - aspirin 81 mg chewable tablet Take 81 mg by mouth once daily. - ubidecarenone Q-10 (COENZYME Q-10) 10 mg cap Take 100 mg by mouth two times a day. - hyperimmune colostrum, bovine 200 mg tab Take 2 tablets by mouth twice daily. - Ca/D3/mag ox/zinc/coping machine assembler/nicholas/bor (CALCIUM 600-D3 PLUS, MAG-ZINC, ORAL) - turmeric/turmeric ext/pepr ext (TURMERIC-TURMERIC EXT-PEPPER) 900-100-5 mg cap - CPAP Bipap 17/13 cm H2O, Heat Humidity, suitable mask, Lifetime supplies, opt Chinstrap, G47.33. - cholecalciferol (VITAMIN D3) 2,000 unit tablet Take 2,000 Units by mouth once daily. - FLUoxetine HCl (PROZAC) 40 mg capsule Take 1 capsule by mouth once daily. (Dr. Garcia) - CYANOCOBALAMIN, VITAMIN B-12, (VITAMIN B-12 ORAL) Take by mouth. - buPROPion XL (WELLBUTRIN XL) 150 mg 24 hr tablet Take one(1) tablet daily. - Biotin (NAIL-EX) 2,500 mcg ORAL Tab Take 1,000 mcg by mouth once daily. - DAILY VITAMIN TAB Take one(1) tablet daily. Meds Comments as of 04/13/2023: 04/13/23: Amlodipine stopped and taking HCTZ now. Ginny Haq RN THERAPY NT Observed: 03/12/2024 10:48 AM Status: COMPLETED Source: [facility] HNO ID: [id number] Author: ALIZE CONNELL PTA Service: ? Author Type: Nurse Navigator Type: Therapy (PT/OT/Speech/Resp) Filed: 03/12/2024 10:48 Note Text: Program_[email or web address]:[id number] Access Code: [email or web address] URL: [email or web address] Date: 03-12-2024 Prepared By: Santana Ward Program Notes Exercises - Supine Lower [...] weekly - 2 sets - 10 reps PROGRESS Observed: 03/12/2024 10:15 AM Status: COMPLETED Source: [facility] HNO ID: [id number] Author: SANTANA WARD PT Service: ? Author Type: Physical Therapist Type: Progress Notes Filed: 03/12/2024 22:06 Note Text: Episode Visit Count: 3 Therapist That Will Accept/Oversee The Plan Of Care: Santana Ward PT Start of Care Date: 02/25/24 [...] LEVEL OF FUNCTION: TREATMENT: Therapeutic Exercise: 1: Smart PipeFit StepOne seat#12 x6 minutes (Pt provided an [...] 1010 Session Stop Time : 1050 Alize Connell PTA CNTHERAPY Observed: 03/12/2024 10:15 AM Status: COMPLETED Source: [facility] OT/PT/Speech Visit (PTWS) PRISCILLA RAMOS ([id number]) 1955 F Date Time Provider Department 03/12/24 10:15 AM ALIZE CONNELL PTFANNY Date Time Provider Department Center 03/12/2024 10:15 AM [id number] CONNELL Reason for Visit: Physical Therapy [503] Primary Visit Diagnosis:Acute back pain with sciatica, left [M54.42] Other Visit Diagnosis:Lumbar radiculopathy [M54.16] Allergies As of Date: 03/12/2024 (No Known Allergies) Date Reviewed: 02/21/2024 Reviewed by: Kasie Limon APRN.IT RISK ADVISOR - Fully Assessed Prescriptions as of 03/12/2024 - traZODone (DESYREL) 50 mg tablet Take 0.5 tablets by mouth daily at bedtime. - gabapentin (NEURONTIN) 400 mg capsule Take 2 capsule 60-90 minutes before bedtime. - rosuvastatin (CRESTOR) 5 mg tablet Take 1 tablet by mouth every Saturday, Saturday, and Saturday. - hydroCHLOROthiazide 25 mg tablet Take 1 tablet by mouth every afternoon. - levothyroxine (SYNTHROID) 25 mcg tablet Take 1 tablet by mouth once daily. - acetaminophen (TYLENOL EXTRA STRENGTH) 500 mg tablet Take 1,000 mg by mouth every 8 hours as needed for pain. - colestipol (COLESTID) 1 gram tablet Take 1-2 tablets by mouth once daily. As directed - diclofenac (VOLTAREN ARTHRITIS PAIN) 1 % topical gel Apply 2 g to affected area four times daily as needed (wrist pain). - acetaminophen (TYLENOL 8 HOUR ORAL) Take by mouth. - BIPAP - losartan (COZAAR) 100 mg tablet Take 100 mg by mouth once daily. - aspirin 81 mg chewable tablet Take 81 mg by mouth once daily. - ubidecarenone Q-10 (COENZYME Q-10) 10 mg cap Take 100 mg by mouth two times a day. - hyperimmune colostrum, bovine 200 mg tab Take 2 tablets by mouth twice daily. - Ca/D3/mag ox/zinc/coping machine assembler/nicholas/bor (CALCIUM 600-D3 PLUS, MAG-ZINC, ORAL) - turmeric/turmeric ext/pepr ext (TURMERIC-TURMERIC EXT-PEPPER) 900-100-5 mg cap - CPAP Bipap 17/13 cm H2O, Heat Humidity, suitable mask, Lifetime supplies, opt Chinstrap, G47.33. - cholecalciferol (VITAMIN D3) 2,000 unit tablet Take 2,000 Units by mouth once daily. - FLUoxetine HCl (PROZAC) 40 mg capsule Take 1 capsule by mouth once daily. (Dr. Garcia) - CYANOCOBALAMIN, VITAMIN B-12, (VITAMIN B-12 ORAL) Take by mouth. - buPROPion XL (WELLBUTRIN XL) 150 mg 24 hr tablet Take one(1) tablet daily. - Biotin (NAIL-EX) 2,500 mcg ORAL Tab Take 1,000 mcg by mouth once daily. - DAILY VITAMIN TAB Take one(1) tablet daily. Meds Comments as of 04/13/2023: 04/13/23: Amlodipine stopped and taking HCTZ now. Ginny Haq RN Water Analyst: Addendum Therapy (PT/OT/Speech/Resp) ID: [id number] 03/12/2024 10:48 AM Author: ALIZE CONNELL Signed by ALIZE CONNELL RATING CLERK on 03/12/2024 at 10:48 AM * * * This document replaces document [id number] * * * Document text: Program_ID:[id number] Access Code: [email or web address] URL: [email or web address] Date: 03-12-2024 Prepared By: Santana Ward Program Notes Exercises - Supine Lower [...] weekly - 2 sets - 10 reps PROGRESS Observed: 03/04/2024 4:51 PM Status: COMPLETED Source: [facility] HNO ID: [id number] Author: SANTANA WARD PT Service: ? Author Type: Physical Therapist Type: Progress Notes Filed: 03/04/2024 16:52 Note Text: Episode Visit Count: 2 Therapist That Will Accept/Oversee The Plan Of Care: Santana Ward PT Start of Care Date: 02/25/24 [...] LEVEL OF FUNCTION: TREATMENT: Therapeutic Exercise: 1: Smart PipeFit StepOne seat#12 x6 minutes (Pt provided an [...] Time : 1600 Session Stop Time : 1644 Santana Ward PT CNTHERAPY Observed: 03/04/2024 4:00 PM Status: COMPLETED Source: [facility] OT/PT/Speech Visit (PTWS) PRISCILLA RAMOS ([id number]) 1955 F Date Time Provider Department 03/04/24 4:00 PM SANTANA WARD PTFANNY Date Time Provider Department Center 03/04/2024 4:00 PM [id number], BRENT PTFANNY Toscano Reason for Visit: Physical Therapy [503] Primary Visit Diagnosis:Acute back pain with sciatica, left [M54.42] Other Visit Diagnosis:Lumbar radiculopathy [M54.16] Allergies As of Date: 03/04/2024 (No Known Allergies) Date Reviewed: 02/21/2024 Reviewed by: Kasie Limon APRN.IT RISK ADVISOR - Fully Assessed Prescriptions as of 03/04/2024 - traZODone (DESYREL) 50 mg tablet Take 0.5 tablets by mouth daily at bedtime. - gabapentin (NEURONTIN) 400 mg capsule Take 2 capsule 60-90 minutes before bedtime. - rosuvastatin (CRESTOR) 5 mg tablet Take 1 tablet by mouth every Saturday, Saturday, and Saturday. - hydroCHLOROthiazide 25 mg tablet Take 1 tablet by mouth every afternoon. - levothyroxine (SYNTHROID) 25 mcg tablet Take 1 tablet by mouth once daily. - acetaminophen (TYLENOL EXTRA STRENGTH) 500 mg tablet Take 1,000 mg by mouth every 8 hours as needed for pain. - colestipol (COLESTID) 1 gram tablet Take 1-2 tablets by mouth once daily. As directed - diclofenac (VOLTAREN ARTHRITIS PAIN) 1 % topical gel Apply 2 g to affected area four times daily as needed (wrist pain). - acetaminophen (TYLENOL 8 HOUR ORAL) Take by mouth. - BIPAP - losartan (COZAAR) 100 mg tablet Take 100 mg by mouth once daily. - aspirin 81 mg chewable tablet Take 81 mg by mouth once daily. - ubidecarenone Q-10 (COENZYME Q-10) 10 mg cap Take 100 mg by mouth two times a day. - hyperimmune colostrum, bovine 200 mg tab Take 2 tablets by mouth twice daily. - Ca/D3/mag ox/zinc/coping machine assembler/nicholas/bor (CALCIUM 600-D3 PLUS, MAG-ZINC, ORAL) - turmeric/turmeric ext/pepr ext (TURMERIC-TURMERIC EXT-PEPPER) 900-100-5 mg cap - CPAP Bipap 17/13 cm H2O, Heat Humidity, suitable mask, Lifetime supplies, opt Chinstrap, G47.33. - cholecalciferol (VITAMIN D3) 2,000 unit tablet Take 2,000 Units by mouth once daily. - FLUoxetine HCl (PROZAC) 40 mg capsule Take 1 capsule by mouth once daily. (Dr. Garcia) - CYANOCOBALAMIN, VITAMIN B-12, (VITAMIN B-12 ORAL) Take by mouth. - buPROPion XL (WELLBUTRIN XL) 150 mg 24 hr tablet Take one(1) tablet daily. - Biotin (NAIL-EX) 2,500 mcg ORAL Tab Take 1,000 mcg by mouth once daily. - DAILY VITAMIN TAB Take one(1) tablet daily. Meds Comments as of 04/13/2023: 04/13/23: Amlodipine stopped and taking HCTZ now. Ginny Haq RN BD DXA - AXIAL SKELETON Observed: 2023 2:39 PM Status: F Source: [facility] * * *Final Report* * * DATE OF EXAM: Mar 02 2024 2:39PM [facility] 0804 - BD DXA - AXIAL SKELETON / PROCEDURE REASON: Osteoporosis, post menopausal * * * * Physician Interpretation * * * * EXAMINATION: DXA BONE DENSITOMETRY BD DXA - AXIAL SKELETON PATIENT DEMOGRAPHICS: Age: 69 years, Gender: Female SCANNER INFORMATION: DXA Model: Spacebar - PeerSpace Discovery C [id number] Date Scanned: 03/02/2024 2:39 PM CLINICAL HISTORY: DIAGNOSTIC Osteoporosis, post menopausal . RISK FACTORS FOR OSTEOPOROSIS AND ASSOCIATED FRACTURES REPORTED BY THIS PATIENT: Please refer to Bone Health Questionnaire in the EMR CURRENT THERAPY: Please refer to Bone Health Questionnaire in the EMR TECHNICAL LIMITATIONS: Degenerative disease of the spine RESULTS: Lumbar spine (L1, L2, L3): 1.222 [...] 2021: 0.893 g/cm2 No statistically significant change CHANGE IS STATISTICALLY SIGNIFICANT IN THE SPINE OR HIP IF GREATER THAN OR EQUAL TO 0.04 g/cm2 VERTEBRAL FRACTURE ASSESSMENT Not performed. IMPRESSION: THE LOWEST T-SCORE IS -1.3 IN THE LEFT HIP 1) DIAGNOSIS (based on BMD alone): OSTEOPENIA Caution: Medical conditions other than osteoporosis may cause low bone density, such as osteomalacia or renal osteodystrophy. Clinical correlation is necessary. 2) FRACTURE RISK (based on FRAX): 10-year absolute fracture risk: - major osteoporotic fracture = 13 % - hip fracture = 1.4 % - A diagnosis of Osteoporosis, a 10 year probability of hip fracture greater than or equal to 3% or a 10 year probability of any major osteoporosis-related fracture greater than or equal to 20% should be considered for treatment. - DXA scanner generated FRAX calculations may slightly differ from online FRAX calculations due to differences in software versions. - All recommendations and calculations are to be considered as guidelines and should not replace sound clinical judgement - Caution: Fracture risk may be increased independent of BMD in patients with corticosteroid use, age greater than 65 years, or a history of prior fragility fracture. RECOMMENDATIONS: Follow-up in 2 years or as clinically indicated. Patients that are taking corticosteroids, are transplant recipients or have hyperparathyroidism should have annual follow-up. Follow-up scans should always be done on the same machine for accurate comparison. FOR MORE INFORMATION ABOUT DIAGNOSIS AND TREATMENT: [facility] for Osteoporosis and Metabolic Bone Disease:? www.ccf.org/arthritis/osteo National Osteoporosis Foundation:? www.nof.org International Society of Clinical Densitometry www.iscd.org Fall Internship: AMIE Transcribe Date/Time: Mar 03 2024 11:25A Dictated by : JOI JOHNSON MD This examination was interpreted and the report reviewed and electronically signed by: JOI JOHNSON MD on Mar 03 2024 11:34AM EST [id number] PROGRESS Observed: 03/02/2024 2:15 PM Status: COMPLETED Source: [facility] HNO ID: [id number] Author: JAME CONTRERAS RT(R) Service: ? 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 Author Type: Physical Therapist Type: [id number] Filed: 02/25/2024 17:40 Note Text: [facility] Physical Therapy Plan of Care Certification Patient Name: Priscilla Ramos : 1955 [facility] #: [id number] Date: 02/25/2024 To: Jovany Bahena, DO From Therapist: Santana Ward PT RE: Patient Certification/ Recertification Your review, approval and electronic signature are required in order to comply with Payor: MEDICARE / Plan: MEDICARE A AND B / Product Type: Medicare / regulations. 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 The patient presents with impairments in ADL's, independence in exercise, overall function, strength, and symptom management. PROMIS? 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 Stand / Walk without limitations, without pain/symptoms. Patient will increase strength of core/postural muscles to WFL to allow for improve ability to complete ADLs. Patient Goals: decrease pain and numbness and get stronger. Time Frame for Goals and Treatment : 03/24/24 Planned Interventions, Frequency, and Duration: Current Frequency: 1x/week Duration: 4 weeks Total Number of Visits Planned: 4 Planned Treatment Interventions: Therapeutic exercise (62299), Neuromuscular re-education (21764), Manual therapy (39307), Therapeutic activities (99961), Self-group home management (71267), Patient/Family/Caregiver Education, Body Mechanics Training PLAN FOR NEXT VISIT: Review, correct and progress HEP to tolerance. Continue with postural stretching and strengthening with flexion directional preference and consider manual belt traction prn. Patient demonstrates good understanding of plan of care and treatment. The above goals and plan of care were discussed and agreed upon by patient/family. For further details regarding this patient refer to the Physical Therapy electronically documented visit dated 02/25/2024. Provider Attestation I have reviewed the treatment plan for Priscilla Ramos, [facility]# [id number] for the period of 02/25/24 -- 03/24/24, established on 02/25/2024. Signature certifies the need for therapy services. PROGRESS Observed: 02/25/2024 5:34 PM Status: COMPLETED Source: [facility] HNO ID: [id number] Author: SANTANA WARD PT Service: ? 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 The patient presents with impairments in ADL's, independence in exercise, overall function, strength, and symptom management. PROMIS? 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 Stand / Walk without limitations, without pain/symptoms. Patient will increase strength of core/postural muscles to WFL to allow for improve ability to complete ADLs. Patient Goals: decrease pain and numbness and get stronger. Time Frame for Goals and Treatment : 03/24/24 Planned Interventions, Frequency, and Duration: Current Frequency: 1x/week Duration: 4 weeks Total Number of Visits Planned: 4 Planned Treatment Interventions: Therapeutic exercise (50018), Neuromuscular re-education (82975), Manual therapy (25810), Therapeutic activities (82839), Self-group home management (91109), Patient/Family/Caregiver Education, Body Mechanics Training PLAN FOR [...] and get stronger. 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 Author Type: Physical Therapist Type: Therapy (PT/OT/Speech/Resp) Filed: 02/25/2024 10:43 Note Text: Program_ID:[id number] Access Code: [email or web address] URL: [email or web address] Date: 02-25-2024 Prepared By: Santana Ward Program Notes Exercises - Supine Lower [...] weekly - 2 sets - 10 reps CNTHERAPY Observed: 02/25/2024 10:00 AM Status: COMPLETED Source: [facility] OT/PT/Speech Visit (PTWS) PRISCILLA RAMOS ([id number]) 1955 F Date Time Provider Department 02/25/24 10:00 AM SANTANA WARD PTWS Date Time Provider Department Center 02/25/2024 10:00 AM [id number], [facility] [employer] Reason for Visit: PT Eval [747] Primary Visit Diagnosis:Acute back pain with sciatica, left [M54.42] Other Visit Diagnoses:Lumbar neuritis [M54.16] Lumbar radiculopathy [M54.16] Chronic bilateral low back pain with left-sided sciatica [M54.42, G89.29] Allergies As of Date: 02/25/2024 (No Known Allergies) Date Reviewed: 02/21/2024 Reviewed by: Kasie Limon APRN.IT RISK ADVISOR - Fully Assessed Prescriptions as of 02/25/2024 - sulfamethoxazole-trimethoprim (BACTRIM DS) 800-160 mg per tablet Take 1 tablet by mouth two times a day for 5 days. - traZODone (DESYREL) 50 mg tablet Take 0.5 tablets by mouth daily at bedtime. - gabapentin (NEURONTIN) 400 mg capsule Take 2 capsule 60-90 minutes before bedtime. - rosuvastatin (CRESTOR) 5 mg tablet Take 1 tablet by mouth every Saturday, Saturday, and Saturday. - hydroCHLOROthiazide 25 mg tablet Take 1 tablet by mouth every afternoon. - levothyroxine (SYNTHROID) 25 mcg tablet Take 1 tablet by mouth once daily. - acetaminophen (TYLENOL EXTRA STRENGTH) 500 mg tablet Take 1,000 mg by mouth every 8 hours as needed for pain. - colestipol (COLESTID) 1 gram tablet Take 1-2 tablets by mouth once daily. As directed - diclofenac (VOLTAREN ARTHRITIS PAIN) 1 % topical gel Apply 2 g to affected area four times daily as needed (wrist pain). - acetaminophen (TYLENOL 8 HOUR ORAL) Take by mouth. - BIPAP - losartan (COZAAR) 100 mg tablet Take 100 mg by mouth once daily. - aspirin 81 mg chewable tablet Take 81 mg by mouth once daily. - ubidecarenone Q-10 (COENZYME Q-10) 10 mg cap Take 100 mg by mouth two times a day. - hyperimmune colostrum, bovine 200 mg tab Take 2 tablets by mouth twice daily. - Ca/D3/mag ox/zinc/coping machine assembler/nicholas/bor (CALCIUM 600-D3 PLUS, MAG-ZINC, ORAL) - turmeric/turmeric ext/pepr ext (TURMERIC-TURMERIC EXT-PEPPER) 900-100-5 mg cap - CPAP Bipap 17/13 cm H2O, Heat Humidity, suitable mask, Lifetime supplies, opt Chinstrap, G47.33. - cholecalciferol (VITAMIN D3) 2,000 unit tablet Take 2,000 Units by mouth once daily. - FLUoxetine HCl (PROZAC) 40 mg capsule Take 1 capsule by mouth once daily. (Dr. Garcia) - CYANOCOBALAMIN, VITAMIN B-12, (VITAMIN B-12 ORAL) Take by mouth. - buPROPion XL (WELLBUTRIN XL) 150 mg 24 hr tablet Take one(1) tablet daily. - Biotin (NAIL-EX) 2,500 mcg ORAL Tab Take 1,000 mcg by mouth once daily. - DAILY VITAMIN TAB Take one(1) tablet daily. Meds Comments as of 04/13/2023: 04/13/23: Amlodipine stopped and taking HCTZ now. Ginny Haq RN Water Analyst: Addendum Therapy (PT/OT/Speech/Resp) ID: [id number] 02/25/2024 10:43 AM Author: SANTANA WARD Signed by SANTANA WARD PT on 02/25/2024 at 10:43 AM * * * This document replaces document [id number] * * * Document text: Program_ID:[id number] Access Code: [email or web address] URL: [email or web address] Date: 02-25-2024 Prepared By: Santana Ward Program Notes Exercises - Supine Lower [...] weekly - 2 sets - 10 reps CNPN Observed: 02/25/2024 12:00 AM Status: COMPLETED Source: [facility] Telephone (INTMWS) PRISCILLA RAMOS ([id number]) 1955 F Date Time Provider Department 02/25/24 KASIE LIMON During your visit today, we recorded the following information about you: Adwoa Christian LPN 02/25/2024 2:14 PM Signed Patient calling she was seen on 02/20 for UTI began Bactrim twice daily and completed rx Saturday am 02/23. Patient said she has less urgency, but still lots of pressure, no burning, smaller amount for the urgency she feels to void. Patient asking if she is needing longer course of antibiotic? Patient uses [facility] for her pharmacy. Please advise Kasie Limon APRN.IT RISK ADVISOR 02/25/2024 3:16 PM Signed Yes, script sent DDM. Rosina Abdul LPN 02/25/2024 3:23 PM Signed Patient notified of providers message and verbalized understanding Allergies As of Date: 02/25/2024 (No Known Allergies) Date Reviewed: 02/21/2024 Reviewed by: Kasie Limon APRN.IT RISK ADVISOR - Fully Assessed Reason for Visit: UTI symptoms not cleared [Other] Visit Diagnosis:Urgency of urination [R39.15] Order(s):sulfamethoxazole-trimethoprim (BACTRIM DS) 800-160 mg per tabletTake 1 tablet by mouth two times a day for 5 days.Disp: 10 tabletRfl: 0 Prescriptions as of 02/25/2024 - sulfamethoxazole-trimethoprim (BACTRIM DS) 800-160 mg per tablet Take 1 tablet by mouth two times a day for 5 days. - traZODone (DESYREL) 50 mg tablet Take 0.5 tablets by mouth daily at bedtime. - gabapentin (NEURONTIN) 400 mg capsule Take 2 capsule 60-90 minutes before bedtime. - rosuvastatin (CRESTOR) 5 mg tablet Take 1 tablet by mouth every Saturday, Saturday, and Saturday. - hydroCHLOROthiazide 25 mg tablet Take 1 tablet by mouth every afternoon. - levothyroxine (SYNTHROID) 25 mcg tablet Take 1 tablet by mouth once daily. - acetaminophen (TYLENOL EXTRA STRENGTH) 500 mg tablet Take 1,000 mg by mouth every 8 hours as needed for pain. - colestipol (COLESTID) 1 gram tablet Take 1-2 tablets by mouth once daily. As directed - diclofenac (VOLTAREN ARTHRITIS PAIN) 1 % topical gel Apply 2 g to affected area four times daily as needed (wrist pain). - acetaminophen (TYLENOL 8 HOUR ORAL) Take by mouth. - BIPAP - losartan (COZAAR) 100 mg tablet Take 100 mg by mouth once daily. - aspirin 81 mg chewable tablet Take 81 mg by mouth once daily. - ubidecarenone Q-10 (COENZYME Q-10) 10 mg cap Take 100 mg by mouth two times a day. - hyperimmune colostrum, bovine 200 mg tab Take 2 tablets by mouth twice daily. - Ca/D3/mag ox/zinc/coping machine assembler/nicholas/bor (CALCIUM 600-D3 PLUS, MAG-ZINC, ORAL) - turmeric/turmeric ext/pepr ext (TURMERIC-TURMERIC EXT-PEPPER) 900-100-5 mg cap - CPAP Bipap 17/13 cm H2O, Heat Humidity, suitable mask, Lifetime supplies, opt Chinstrap, G47.33. - cholecalciferol (VITAMIN D3) 2,000 unit tablet Take 2,000 Units by mouth once daily. - FLUoxetine HCl (PROZAC) 40 mg capsule Take 1 capsule by mouth once daily. (Dr. Garcia) - CYANOCOBALAMIN, VITAMIN B-12, (VITAMIN B-12 ORAL) Take by mouth. - buPROPion XL (WELLBUTRIN XL) 150 mg 24 hr tablet Take one(1) tablet daily. - Biotin (NAIL-EX) 2,500 mcg ORAL Tab Take 1,000 mcg by mouth once daily. - DAILY VITAMIN TAB Take one(1) tablet daily. Meds Comments as of 04/13/2023: 04/13/23: Amlodipine stopped and taking HCTZ now. Ginny Haq RN Problem List As Of Date 02/25/2024 Noted Resolved Fibromyalgia [M79.7] DYSTHYMIC DISORDER [F34.1] Palpitations [R00.2] 11/23/2006 01/29/2014 Dyslipidemia [E78.5] 11/25/2006 Osteopenia [M85.80] 12/14/2010 Arthrosis [M19.90] 12/14/2010 Dysmetabolic syndrome [E88.810] 10/07/2012 Obstructive sleep apnea treated with bilevel po*09/09/2013 Insomnia [G47.00] 09/09/2013 Elevated antinuclear antibody (KELTON) [...] 07/25/2022 CAD (coronary artery disease) [I25.10] 07/25/2022 Depression, recurrent (HCC) [F33.9] 12/16/2022 Intermittent claudication (HCC) [I73.9] 12/16/2022 Acute back pain with sciatica, left [M54.42] 02/07/2023 Lumbar radiculopathy [M54.16] 02/25/2024 Prescriptions ordered this encounter Disp Refills Start End SULFAMETHOXAZOLE 800 MG-TRIMETHOPRIM* 10 t* 0 02/25/2024 03/01/2024 Route: ORAL Sig: Take 1 tablet by mouth two times a day for 5 days. Medications Discontinued During This Encounter Prescriptions - sulfamethoxazole-trimethoprim (BACTRIM DS) 800-160 mg per tablet (Discontinued) Take 1 tablet by mouth two times a day for 3 days. Encounter Status:Closed by ROSINA ABDUL on 02/25/24 BACTERIA UR CULT Observed: 02/21/2024 2:59 PM Status: F Source: [facility] CULTURE, URINE: Mixed microbiota, including predominantly: ORGANISM ID: 1 50,000-<100,000 CFU/ml Escherichia coli ORGANISM ID: 1 (ESCHERICHIA COLI) ----- ----- ANTIBIOTIC INTERPRETATION SHAGUFTA STATUS REFERENCE RANGE ----- ----- Ampicillin S 4 F Susceptible <=8 , Intermediate >8 , Resistant >16 Cefazolin S <=4 F Susceptible 0-16 , Intermediate <0 or >16 , Resistant >16 For uncomplicated urinary tract infections, cefazolin results can be used to predict susceptibility or resistance to cephalexin. Ceftriaxone S <=1 F Susceptible <=1 , Intermediate >1 , Resistant >=4 Cefepime S <=1 F Susceptible <=2 , Susceptible-Dose Dependent >2 , Resistant >=16 Ertapenem S <=0.5 F Susceptible <=0.5 , Intermediate >.5 , Resistant >1 Meropenem S <=0.25 F Susceptible <=1 , Intermediate >1 , Resistant >2 Ampicillin/Sulbact S <=2 F Susceptible <=8 , Intermediate >8 , Resistant >16 Piperacillin/Tazobac S <=4 F Susceptible <16 , Susceptible-Dose Dependent >=16 , Resistant >=32 Gentamicin S <=1 F Susceptible <=2 , Intermediate >2 , Resistant >=8 Tobramycin S <=1 F Susceptible <4 , Intermediate >=4 , Resistant >=8 Trimeth sulfameth S <=20 F Susceptible <=40 , Resistant >40 Ciprofloxacin S <=0.25 F Susceptible <0.5 , Intermediate >=.5 , Resistant >=1 Nitrofurantoin S <=16 F Susceptible <=32 , Intermediate >32 , Resistant >64 Performed By: #### [id number] ### # [facility] CLIA [id number] [address] [place] [address] [place] PROGRESS Observed: 02/21/2024 2:40 PM Status: COMPLETED Source: [facility] HNO ID: [id number] Author: KASIE LIMON APRN.IT RISK ADVISOR Service: ? Author Type: Nurse Specialist Type: Progress Notes Filed: 02/21/2024 15:31 Note Text: No chief complaint on file. 69 year [...] kg (261 lb 3.9 oz) BMI 43.47 kg/m? Physical Exam Vitals and nursing note reviewed. [...] Medical Decision Making Level: 3 - Low CNOV Observed: 02/21/2024 2:40 PM Status: COMPLETED Source: [facility] Office Visit (INTMWS) PRISCILLA RAMOS ([id number]) 1955 F Date Time Provider Department 02/21/24 2:40 PM KASIE LIMON INTMANDI During your visit today, we recorded the following information about you: Pulse Respiration Blood pressure Weight 81/minute 16/minute 133/77 118.5 kg Kasie Limon APRN.CNS 02/21/2024 2:48 PM Signed Urinary Problem-When to Seek Help? Symptoms of a urinary problem may lead to a?bladder?infection. Women are at greater risk of a [...] a specialist, such as a urologist. Diagnosis AND Treatment: Lab testing may include: urinalysis, and urine culture that can be collected in the lab or walk-in clinic. Most bladder infections can easily be treated. A physician, nurse practitioner or physician virtual customer assistant may treat with a short course of [...] in healthy young women if symptoms resolve. Kasie Limon APRN.IT RISK ADVISOR 02/21/2024 3:31 PM Signed No chief complaint on file. 69 year [...] kg (261 lb 3.9 oz) BMI 43.47 kg/m? Physical Exam Vitals and nursing note reviewed. [...] Patient education for prevention given Kasie Limon APRN.IT RISK ADVISOR Medical Decision Making: Problems: Low: Acute, uncomplicated illness or injury Data: Unique test(s) ordered: 2 Risk: Moderate: Drug management Medical Decision Making Level: 3 - Low Referring Provider: YOUNG CORREA [[id number]] Allergies As of Date: 02/21/2024 (No Known Allergies) Date Reviewed: 02/21/2024 Reviewed by: Kasie Limon APRN.IT RISK ADVISOR - Fully Assessed Reason for Visit: UTI [116] Primary Visit Diagnosis:Urgency of urination [R39.15] Other Visit Diagnosis:Urinary tract infection without hematuria, site unspecified [N39.0] Order(s):UA DIP B/O [[id number]] Order #: [id number] URINE CULTURE [SQURCUL] Order #: [id number]. #:[id number] UA DIP, URINE (POC) [[id number]] Order #: [id number]. #:[id number] sulfamethoxazole-trimethoprim (BACTRIM DS) 800-160 mg per tabletTake 1 tablet by mouth two times a day for 3 days.Disp: 6 tabletRfl: 0 URINALYSIS WITH MICROSCOPIC, REFLEX CULTURE [SQUACII] Order #: [id number] FUTURE Prescriptions as of 02/21/2024 - sulfamethoxazole-trimethoprim (BACTRIM DS) 800-160 mg per tablet Take 1 tablet by mouth two times a day for 3 days. - traZODone (DESYREL) 50 mg tablet Take 0.5 tablets by mouth daily at bedtime. - gabapentin (NEURONTIN) 400 mg capsule Take 2 capsule 60-90 minutes before bedtime. - rosuvastatin (CRESTOR) 5 mg tablet Take 1 tablet by mouth every Saturday, Saturday, and Saturday. - hydroCHLOROthiazide 25 mg tablet Take 1 tablet by mouth every afternoon. - levothyroxine (SYNTHROID) 25 mcg tablet Take 1 tablet by mouth once daily. - acetaminophen (TYLENOL EXTRA STRENGTH) 500 mg tablet Take 1,000 mg by mouth every 8 hours as needed for pain. - colestipol (COLESTID) 1 gram tablet Take 1-2 tablets by mouth once daily. As directed - diclofenac (VOLTAREN ARTHRITIS PAIN) 1 % topical gel Apply 2 g to affected area four times daily as needed (wrist pain). - acetaminophen (TYLENOL 8 HOUR ORAL) Take by mouth. - BIPAP - losartan (COZAAR) 100 mg tablet Take 100 mg by mouth once daily. - aspirin 81 mg chewable tablet Take 81 mg by mouth once daily. - ubidecarenone Q-10 (COENZYME Q-10) 10 mg cap Take 100 mg by mouth two times a day. - hyperimmune colostrum, bovine 200 mg tab Take 2 tablets by mouth twice daily. - Ca/D3/mag ox/zinc/coping machine assembler/nicholas/bor (CALCIUM 600-D3 PLUS, MAG-ZINC, ORAL) - turmeric/turmeric ext/pepr ext (TURMERIC-TURMERIC EXT-PEPPER) 900-100-5 mg cap - CPAP Bipap 17/13 cm H2O, Heat Humidity, suitable mask, Lifetime supplies, opt Chinstrap, G47.33. - cholecalciferol (VITAMIN D3) 2,000 unit tablet Take 2,000 Units by mouth once daily. - FLUoxetine HCl (PROZAC) 40 mg capsule Take 1 capsule by mouth once daily. (Dr. Garcia) - CYANOCOBALAMIN, VITAMIN B-12, (VITAMIN B-12 ORAL) Take by mouth. - buPROPion XL (WELLBUTRIN XL) 150 mg 24 hr tablet Take one(1) tablet daily. - Biotin (NAIL-EX) 2,500 mcg ORAL Tab Take 1,000 mcg by mouth once daily. - DAILY VITAMIN TAB Take one(1) tablet daily. Meds Comments as of 04/13/2023: 04/13/23: Amlodipine stopped and taking HCTZ now. Ginny Haq RN Problem List As Of Date 02/21/2024 Noted Resolved Fibromyalgia [M79.7] DYSTHYMIC DISORDER [F34.1] Palpitations [R00.2] 11/23/2006 01/29/2014 Dyslipidemia [E78.5] 11/25/2006 Osteopenia [M85.80] 12/14/2010 Arthrosis [M19.90] 12/14/2010 Dysmetabolic syndrome [E88.810] 10/07/2012 Obstructive sleep apnea treated with bilevel po*09/09/2013 Insomnia [G47.00] 09/09/2013 Elevated antinuclear antibody (KELTON) [...] 07/25/2022 CAD (coronary artery disease) [I25.10] 07/25/2022 Depression, recurrent (HCC) [F33.9] 12/16/2022 Intermittent claudication (HCC) [I73.9] 12/16/2022 Chronic bilateral low back pain with left-sided*02/07/2023 Other instructions from your clinician: Urinary Problem-When to Seek Help? Symptoms of a urinary problem may lead to a?bladder?infection. Women are at greater risk of a [...] a specialist, such as a urologist. Diagnosis AND Treatment: Lab testing may include: urinalysis, and urine culture that can be collected in the lab or walk-in clinic. Most bladder infections can easily be treated. A physician, nurse practitioner or physician virtual customer assistant may treat with a short course of [...] in healthy young women if symptoms resolve. Prescriptions ordered this encounter Disp Refills Start End SULFAMETHOXAZOLE 800 MG-TRIMETHOPRIM* 6 ta* 0 02/21/2024 02/24/2024 Route: ORAL Sig: Take 1 tablet by mouth two times a day for 3 days. Level of Service: OFFICE/OUTPATIENT ESTABLISHED LOW [facility] 20 MIN [[id number]] Additional E/M codes: VISIT CPLX INHERENT EANDM ASSOC WITH MED * Encounter Status:Closed by KASIE LIMON on 02/21/24 US THYROID/PARATHYROID Observed: 024 10:12 AM Status: F Source: [facility] * * *Final Report* * * DATE OF EXAM: Feb 21 2024 10:12AM [facility] 1048 - US THYROID/PARATHYROID / PROCEDURE REASON: Multiple thyroid nodules * * * * Physician Interpretation * * * * EXAMINATION: THYROID ULTRASOUND CLINICAL HISTORY: Multiple thyroid nodules TECHNIQUE: Sonography and Doppler imaging of the thyroid was performed. Images were obtained and stored in a permanent archive. MQ: UST_1 COMPARISON: Thyroid ultrasound 03/18/2023 RESULT: Right Lobe: 4.4 x 1.7 x 1.9 cm; heterogeneous echogenicity, expected vascular flow. Left Lobe: 4.5 x 1.8 x 1.6 cm; heterogeneous echogenicity, expected vascular flow. Isthmus: 0.3 cm The most suspicious thyroid nodule(s) (up to four) as below: NODULE 1: Location: Right upper pole Size: 0.9 x 0.6 x 0.6 cm Characteristics: Composition: Solid or almost completely solid, 2 points Echogenicity: Hypoechoic, 2 points Shape: Robag-ozkl-jgsk, 0 points Margin: Smooth, 0 points Echogenic foci (add points for all that apply): None, 0 points Internal vascularity: absent Interval growth: No significant growth given differences in technique TI-RADS Category: TR4 ACR Recommendation: TI-RADS 4 nodule. No FNA or follow-up imaging is advised. NODULE 2: Location: Right mid Size: 2 x 1.4 x 0.9 cm Characteristics: Composition: Solid or almost completely solid, 2 points Echogenicity: Hypoechoic, 2 points Shape: Nlmde-fkyc-sclz, 0 points Margin: Smooth, 0 points Echogenic foci (add points for all that apply): Punctate echogenic foci, 3 points Internal vascularity: absent Interval growth: No significant growth given differences in technique TI-RADS Category: TR5 ACR Recommendation: TI-RADS 5 nodule. FNA is advised. NODULE 3: Location: Right mid to lower pole Size: 1.4 x 1 x 0.9 cm Characteristics: Composition: Solid or almost completely solid, 2 points Echogenicity: Hypoechoic, 2 points Shape: Xznpz-dxes-nfal, 0 points Margin: Smooth, 0 points Echogenic foci (add points for all that apply): None, 0 points Internal vascularity: absent Interval growth: No significant growth given differences in technique TI-RADS Category: TR4 ACR Recommendation: TI-RADS 4 nodule. Follow up imaging in 1, 2, 3 and 5 years is advised. NODULE 4: Location: Left mid Size: 1 x 0.6 x 1 cm Characteristics: Composition: Solid or almost completely solid, 2 points Echogenicity: Hypoechoic, 2 points Shape: Apkdd-kkyo-vnoa, 0 points Margin: Smooth, 0 points Echogenic foci (add points for all that apply): None, 0 points Internal vascularity: absent Interval growth: No significant growth given differences in technique TI-RADS Category: TR4 ACR Recommendation: TI-RADS 4 nodule. Follow up imaging in 1, 2, 3 and 5 years is advised. IMPRESSION: Thyroid nodules have not appreciably changed in size compared to the prior study. Thyroid nodule(s) is/are present. Fine needle aspiration is recommended if not previously performed. TI-RADS Category: TR5 ACR Recommendation: TI-RADS 5 nodule. FNA is advised. ACR recommendations are strictly based on the size and imaging appearance at the time of the exam and do not consider stability or previous biopsy results. Fall Internship: [facility] Transcribe Date/Time: Feb 27 2024 3:09P Dictated by : TODD AMEZCUA MD This examination was interpreted and the report reviewed and electronically signed by: TODD AMEZCUA MD on Feb 27 2024 3:18PM EST [id number] Observed: 02/21/2024 10:00 AM Status: COMPLETED Source: [facility] HNO ID: [id number] Author: FAYE RIVAS RDMS Service: ? Author Type: Commercial Roofer Type: Progress Notes Filed: 02/21/2024 14:20 Note Text: Radiology Service Progress Note PATIENT [...] PATIENT PRESENTS WITH AN IMPLANTABLE OR ATTACHED MILK DELIVERER: No RADIOLOGY DEPARTMENT: Ultrasound PERIPHERAL IV DATA: Not applicable SIGNED BY: Faye Rivas RDMS RVT February 21, 2024 2:20 PM OPERATIVE NO Observed: 02/17/2024 1:34 PM Status: COMPLETED Source: [facility] HNO ID: [id number] Author: JOVANY BAHENA DO Service: Pain Management Author Type: Physician Type: Operative Report Filed: 02/17/2024 14:03 Note Text: OPERATIVE/PROCEDURE REPORT LOG ID: [id number] Surgery/Procedure Date: 02/17/2024 Incision/Procedure Start Time: 1:41 PM Incision Close/Procedure End Time: 2:00 PM Surgeon(s)/Proceduralist(s) and Oil Tank Car Cleaner(s): Surgeons and Role: * Jovany Bahena, DO - Primary * Alex Echols DO - Resident - Assisting No Additional Staff Procedure(s): Interlaminar Epidural Injection L5-S1 Left paramedian approach Indications: Patient is here for diagnostic and/or therapeutic injection with severe impairment of function. Anesthesia: Local Procedure Details: SUBJECTIVE: Priscilla Ramos is a 69 year old female, who presents to [facility] for a Lumbar Epidural Steroid Injection. 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 The pain is located in the Pain is located low back ., The pain radiates to both buttocks . Pain intensity ranges from 2 to 7 on a scale of 0-10. Current pain intensity is 3. I have reviewed the nurses notes the past medical, surgical, family and social history and available spine imaging was reviewed. Yes IV ACCESS: was not established. INFORMED CONSENT: Informed consent was obtained and signed electronically. We discussed the risks, benefits, alternative treatment options, staff participating in procedure and equipment to be used. No contraindications to proceeding with procedure. Patient agreed to proceed with procedure as planned. Yes Priscilla Ramos was transferred to the Block Room. After placement of routine monitors, the procedure was performed in the usual manner. Sign in and Time out were performed prior to administration of any medications and prior to initiation of procedure. Yes CONSCIOUS SEDATION: No PROCEDURE: Procedure: Lumbar Epidural Steroid Injection Level:L5-S1 Technique: Utilizing fluoroscopic imaging and correlation with MRI or CT imaging the correct level was identified and skin was marked. Entry point was identified utilizing fluoroscopic imaging. Entry point was anesthetized with 2 cc of 1% lidocaine. A left paramedian interlaminar approach was used with C-arm guidance. A #18 gauge Touhy needle was inserted and directed to appropriate location. Standard loss of resistance technique employed to identify epidural space. Aspiration revealed no blood or cerebrospinal fluid in the loss of resistance syringe. Syringe was removed and no CSF was visualized draining from needle. 0.5 cc of Iohexol contrast was then injected. Fluoroscopic imaging was performed in at least two views and showed epidural flow pattern and no evidence of vascular uptake. Imaging was recorded in at least two views. A solution of 1% Lidocaine 2 cc and Depomedrol 80 mg was injected. No significant paresthesias or pain were experienced. The needle was then removed w/o complications. She tolerated the procedure well and was then taken to the post-block recovery area in stable condition for further observation. Sign out was performed at end of procedure before any personnel had left the room. Yes I was assisted by Alex Echols DO and was present at bedside throughout entire procedure. No complications were encountered. Fellow assisted with fluoroscopic localization. Attending injected subcutaneous anesthetic. Fellow directed needle to target location. Attending injected contrast and injectate. ASSESSMENT: Pre Procedure Pain Level: same as above Post Procedure Pain Level: 2 on a scale of 0-10. Purposeful response to verbal or tactile stimulation: Yes PLAN: Patient is to complete post procedure pain diary and return for follow up in 2-3 weeks. Priscilla Ramos was discharged home in stable condition. Post op instructions reviewed with patient. Pre-Op/Pre-Procedure Diagnosis: Lumbar Neuritis Post-Op/Post-Procedure Diagnosis: Same Estimated Blood Loss: None Specimens: None Implantable Devices: None Drains: None Complications: None I performed the procedure with the assistance of a medical spine fellow. SIGNATURE: Jovany Bahena DO PATIENT NAME: Priscilla Ramos DATE: February 17, 2024 TIME: 2:00 PM PAGER/CONTACT #: [phone] HISTORY PHYSICAL Observed: 02/17/2024 12:50 PM Status: COMPLETED Source: [facility] HNO ID: [id number] Author: JOVANY BAHENA DO Service: Pain Management Author Type: Physician Type: H&P Filed: 02/17/2024 13:37 Note Text: PROCEDURAL HISTORY AND PHYSICAL EXAM (To Be Used for Moderate Sedation Cases) SERVICE DATE: 02/17/2024 SERVICE TIME: 12:50 PM ASSESSMENT AND PLAN Active Problems: Lumbosacral neuritis SUBJECTIVE HPI: This is a 69 year old female who presents with left leg pain Pain severity ranges from 2-7/10 Here for L5-S1 Interlaminar epidural steroid injection, left paramedian approach PAST ANESTHESIA HISTORY: No history of adverse event PAST MEDICAL HISTORY: PAST MEDICAL HISTORY Diagnosis Date Abnormal mammogram, [...] Temporomandibular joint disorders, unspecified 11/23/2006 PAST SURGICAL HISTORY: PAST SURGICAL HISTORY Procedure Laterality Date ARTHRP [...] TUBE OVARY 1999 Hysterectomy, AVANI ovaries remain MEDICATIONS: Prior to Admission medications as of 02/17/24 1214 Medication Sig Last Dose Taking traZODone (DESYREL) 50 mg tablet Take 0.5 tablets by mouth daily at bedtime. 02/16/2024 Yes gabapentin (NEURONTIN) 400 mg capsule Take 2 capsule 60-90 minutes before bedtime. 02/16/2024 Yes hydroCHLOROthiazide 25 mg tablet Take 1 tablet by mouth every afternoon. 02/17/2024 Yes levothyroxine (SYNTHROID) 25 mcg tablet Take 1 tablet by mouth once daily. 02/17/2024 Yes acetaminophen (TYLENOL EXTRA STRENGTH) 500 mg tablet Take 1,000 mg by mouth every 8 hours as needed for pain. 02/16/2024 Yes BIPAP 02/16/2024 Yes losartan (COZAAR) 100 mg tablet Take 100 mg by mouth once daily. 02/16/2024 Yes aspirin 81 mg chewable tablet Take 81 mg by mouth once daily. Past Week Yes ubidecarenone Q-10 (COENZYME Q-10) 10 mg cap Take 100 mg by mouth two times a day. Past Week Yes hyperimmune colostrum, bovine 200 mg tab Take 2 tablets by mouth twice daily. Patient taking differently: Take 200 mg by mouth two times a day. Past Week Yes Ca/D3/mag ox/zinc/coping machine assembler/nicholas/bor (CALCIUM 600-D3 PLUS, MAG-ZINC, ORAL) Past Week Yes turmeric/turmeric ext/pepr ext (TURMERIC-TURMERIC EXT-PEPPER) 900-100-5 mg cap Past Week Yes cholecalciferol (VITAMIN D3) 2,000 unit tablet Take 2,000 Units by mouth once daily. Past Week Yes FLUoxetine HCl (PROZAC) 40 mg capsule Take 1 capsule by mouth once daily. (Dr. Garcia) 02/17/2024 Yes CYANOCOBALAMIN, VITAMIN B-12, (VITAMIN B-12 ORAL) Take by mouth. Past Week Yes buPROPion XL (WELLBUTRIN XL) 150 mg 24 hr tablet Take one(1) tablet daily. 02/17/2024 Yes Biotin (NAIL-EX) 2,500 mcg ORAL Tab Take 1,000 mcg by mouth once daily. Past Week Yes DAILY VITAMIN TAB Take one(1) tablet daily. Past Week Yes rosuvastatin (CRESTOR) 5 mg tablet Take 1 tablet by mouth every Saturday, Saturday, and Saturday. 02/14/2024 colestipol (COLESTID) 1 gram tablet Take 1-2 tablets by mouth once daily. As directed Unknown diclofenac (VOLTAREN ARTHRITIS PAIN) 1 % topical gel Apply 2 g to affected area four times daily as needed (wrist pain). acetaminophen (TYLENOL 8 HOUR ORAL) Take by mouth. CPAP Bipap 17/13 cm H2O, Heat Humidity, suitable mask, Lifetime supplies, opt Chinstrap, G47.33. ALLERGIES: ALLERGIES No Known Allergies OBJECTIVE PHYSICAL EXAM: AIRWAY: Patent, Full neck flexion and extension, Uvula visible LUNGS: Negative findings: normal respiratory rate and rhythm and diaphragmatic excursion normal CARDIAC: rhythm: regular rate: normal The remainder of the physical exam is noncontributory. SIGNATURE: Alex Echols DO PATIENT NAME: Priscilla Ramos DATE: February 17, 2024 TIME: 12:50 PM PAGER: [phone] Preoperatively I personally examined the patient and discussed the risks and benefits of procedure with the patient. Cardiac exam: RRR, No murmur, no rubs, no ectopy Pulmonary: Lungs clear without any wheezes rhonchi or abnormal breath sounds bilaterally. Mckenzie Coon DO CNPN Observed: 02/11/2024 12:00 AM Status: COMPLETED Source: [facility] Telephone ([facility]) PRISCILLA RAMOS ([id number]) 1955 F Date Time Provider Department 02/11/24 JOVANY BAHENA [facility] During your visit today, we recorded the following information about you: Irene Stearns RN 02/11/2024 11:27 AM Signed Called and spoke with patient. Discussed medication guidelines for upcoming procedure. Patient verbalizes understanding. Information sent on [employer] for review. No other questions or concerns. Allergies As of Date: 02/11/2024 (No Known Allergies) Date Reviewed: 01/17/2024 Reviewed by: Omar Traylor MA - Fully Assessed Reason for Visit: Preparations For Procedures [899] Prescriptions as of 02/11/2024 - traZODone (DESYREL) 50 mg tablet Take 0.5 tablets by mouth daily at bedtime. - gabapentin (NEURONTIN) 400 mg capsule Take 2 capsule 60-90 minutes before bedtime. - rosuvastatin (CRESTOR) 5 mg tablet Take 1 tablet by mouth every Saturday, Saturday, and Saturday. - hydroCHLOROthiazide 25 mg tablet Take 1 tablet by mouth every afternoon. - levothyroxine (SYNTHROID) 25 mcg tablet Take 1 tablet by mouth once daily. - acetaminophen (TYLENOL EXTRA STRENGTH) 500 mg tablet Take 1,000 mg by mouth every 8 hours as needed for pain. - colestipol (COLESTID) 1 gram tablet Take 1-2 tablets by mouth once daily. As directed - diclofenac (VOLTAREN ARTHRITIS PAIN) 1 % topical gel Apply 2 g to affected area four times daily as needed (wrist pain). - acetaminophen (TYLENOL 8 HOUR ORAL) Take by mouth. - BIPAP - losartan (COZAAR) 100 mg tablet Take 100 mg by mouth once daily. - aspirin 81 mg chewable tablet Take 81 mg by mouth once daily. - ubidecarenone Q-10 (COENZYME Q-10) 10 mg cap Take 100 mg by mouth two times a day. - hyperimmune colostrum, bovine 200 mg tab Take 2 tablets by mouth twice daily. - Ca/D3/mag ox/zinc/coping machine assembler/nicholas/bor (CALCIUM 600-D3 PLUS, MAG-ZINC, ORAL) - turmeric/turmeric ext/pepr ext (TURMERIC-TURMERIC EXT-PEPPER) 900-100-5 mg cap - CPAP Bipap 17/13 cm H2O, Heat Humidity, suitable mask, Lifetime supplies, opt Chinstrap, G47.33. - cholecalciferol (VITAMIN D3) 2,000 unit tablet Take 2,000 Units by mouth once daily. - FLUoxetine HCl (PROZAC) 40 mg capsule Take 1 capsule by mouth once daily. (Dr. Garcia) - CYANOCOBALAMIN, VITAMIN B-12, (VITAMIN B-12 ORAL) Take by mouth. - buPROPion XL (WELLBUTRIN XL) 150 mg 24 hr tablet Take one(1) tablet daily. - Biotin (NAIL-EX) 2,500 mcg ORAL Tab Take 1,000 mcg by mouth once daily. - DAILY VITAMIN TAB Take one(1) tablet daily. Meds Comments as of 04/13/2023: 04/13/23: Amlodipine stopped and taking HCTZ now. Ginny Haq RN Problem List As Of Date 02/11/2024 Noted Resolved Fibromyalgia [M79.7] DYSTHYMIC DISORDER [F34.1] Palpitations [R00.2] 11/23/2006 01/29/2014 Dyslipidemia [E78.5] 11/25/2006 Osteopenia [M85.80] 12/14/2010 Arthrosis [M19.90] 12/14/2010 Dysmetabolic syndrome [E88.810] 10/07/2012 Obstructive sleep apnea treated with bilevel po*09/09/2013 Insomnia [G47.00] 09/09/2013 Elevated antinuclear antibody (KELTON) [...] 07/25/2022 CAD (coronary artery disease) [I25.10] 07/25/2022 Depression, recurrent (HCC) [F33.9] 12/16/2022 Intermittent claudication (HCC) [I73.9] 12/16/2022 Chronic bilateral low back pain with left-sided*02/07/2023 Encounter Status:Closed by IRENE STEARNS on 02/11/24 ISAURON Observed: 01/31/2024 12:00 AM Status: COMPLETED Source: [facility] Telephone ([facility]) PRISCILLA RAMOS ([id number]) 1955 F Date Time Provider Department 01/31/24 JOVANY BAHENA [facility] During your visit today, we recorded the following information about you: Allergies As of Date: 01/31/2024 (No Known Allergies) Date Reviewed: 01/17/2024 Reviewed by: Omar Traylor MA - Fully Assessed Reason for Visit: Physical Therapy [503] Prescriptions as of 01/31/2024 - traZODone (DESYREL) 50 mg tablet Take 0.5 tablets by mouth daily at bedtime. - gabapentin (NEURONTIN) 400 mg capsule Take 2 capsule 60-90 minutes before bedtime. - rosuvastatin (CRESTOR) 5 mg tablet Take 1 tablet by mouth every Saturday, Saturday, and Saturday. - hydroCHLOROthiazide 25 mg tablet Take 1 tablet by mouth every afternoon. - levothyroxine (SYNTHROID) 25 mcg tablet Take 1 tablet by mouth once daily. - acetaminophen (TYLENOL EXTRA STRENGTH) 500 mg tablet Take 1,000 mg by mouth every 8 hours as needed for pain. - colestipol (COLESTID) 1 gram tablet Take 1-2 tablets by mouth once daily. As directed - diclofenac (VOLTAREN ARTHRITIS PAIN) 1 % topical gel Apply 2 g to affected area four times daily as needed (wrist pain). - acetaminophen (TYLENOL 8 HOUR ORAL) Take by mouth. - BIPAP - losartan (COZAAR) 100 mg tablet Take 100 mg by mouth once daily. - aspirin 81 mg chewable tablet Take 81 mg by mouth once daily. - ubidecarenone Q-10 (COENZYME Q-10) 10 mg cap Take 100 mg by mouth two times a day. - hyperimmune colostrum, bovine 200 mg tab Take 2 tablets by mouth twice daily. - Ca/D3/mag ox/zinc/coping machine assembler/nicholas/bor (CALCIUM 600-D3 PLUS, MAG-ZINC, ORAL) - turmeric/turmeric ext/pepr ext (TURMERIC-TURMERIC EXT-PEPPER) 900-100-5 mg cap - CPAP Bipap 17/13 cm H2O, Heat Humidity, suitable mask, Lifetime supplies, opt Chinstrap, G47.33. - cholecalciferol (VITAMIN D3) 2,000 unit tablet Take 2,000 Units by mouth once daily. - FLUoxetine HCl (PROZAC) 40 mg capsule Take 1 capsule by mouth once daily. (Dr. Garcia) - CYANOCOBALAMIN, VITAMIN B-12, (VITAMIN B-12 ORAL) Take by mouth. - buPROPion XL (WELLBUTRIN XL) 150 mg 24 hr tablet Take one(1) tablet daily. - Biotin (NAIL-EX) 2,500 mcg ORAL Tab Take 1,000 mcg by mouth once daily. - DAILY VITAMIN TAB Take one(1) tablet daily. Meds Comments as of 04/13/2023: 04/13/23: Amlodipine stopped and taking HCTZ now. Ginny Haq, RN Problem List As Of Date 01/31/2024 Noted Resolved Fibromyalgia [M79.7] DYSTHYMIC DISORDER [F34.1] Palpitations [R00.2] 11/23/2006 01/29/2014 Dyslipidemia [E78.5] 11/25/2006 Osteopenia [M85.80] 12/14/2010 Arthrosis [M19.90] 12/14/2010 Dysmetabolic syndrome [E88.810] 10/07/2012 Obstructive sleep apnea treated with bilevel po*09/09/2013 Insomnia [G47.00] 09/09/2013 Elevated antinuclear antibody (KELTON) [...] 07/25/2022 CAD (coronary artery disease) [I25.10] 07/25/2022 Depression, recurrent (HCC) [F33.9] 12/16/2022 Intermittent claudication (HCC) [I73.9] 12/16/2022 Chronic bilateral low back pain with left-sided*02/07/2023 Encounter Status:Closed by OMAR RTAYLOR on 01/31/24 CANDY Observed: 01/30/2024 12:00 AM Status: COMPLETED Source: [facility] PR[facility] ([id number]) 1955 F Date Time Provider Department 01/30/24 JOVANY BAHENA During your visit today, we recorded the following information about you: Omar Traylor MA 01/30/2024 1:34 PM Signed Patient scheduled for a procedure on 02/17/24 in the [facility] 2nd floor Is patient diabetic? No Is [...] No Printed instructions handed to patient: No NeuroTronik message sent with instructions:Yes Allergies As of Date: 01/30/2024 (No Known Allergies) Date Reviewed: 01/17/2024 Reviewed by: Omar Traylor MA - Fully Assessed Reason for Visit: Schedule Injection [3498] Physical Therapy [503] Primary Visit Diagnosis:Lumbosacral neuritis [M54.17] Order(s):SURGICAL REQUEST - ELECTIVE (11/2019) [8339611] Order #: [id number]: 1 Prescriptions as of 01/30/2024 - traZODone (DESYREL) 50 mg tablet Take 0.5 tablets by mouth daily at bedtime. - gabapentin (NEURONTIN) 400 mg capsule Take 2 capsule 60-90 minutes before bedtime. - rosuvastatin (CRESTOR) 5 mg tablet Take 1 tablet by mouth every Saturday, Saturday, and Saturday. - hydroCHLOROthiazide 25 mg tablet Take 1 tablet by mouth every afternoon. - levothyroxine (SYNTHROID) 25 mcg tablet Take 1 tablet by mouth once daily. - acetaminophen (TYLENOL EXTRA STRENGTH) 500 mg tablet Take 1,000 mg by mouth every 8 hours as needed for pain. - colestipol (COLESTID) 1 gram tablet Take 1-2 tablets by mouth once daily. As directed - diclofenac (VOLTAREN ARTHRITIS PAIN) 1 % topical gel Apply 2 g to affected area four times daily as needed (wrist pain). - acetaminophen (TYLENOL 8 HOUR ORAL) Take by mouth. - BIPAP - losartan (COZAAR) 100 mg tablet Take 100 mg by mouth once daily. - aspirin 81 mg chewable tablet Take 81 mg by mouth once daily. - ubidecarenone Q-10 (COENZYME Q-10) 10 mg cap Take 100 mg by mouth two times a day. - hyperimmune colostrum, bovine 200 mg tab Take 2 tablets by mouth twice daily. - Ca/D3/mag ox/zinc/coping machine assembler/nicholas/bor (CALCIUM 600-D3 PLUS, MAG-ZINC, ORAL) - turmeric/turmeric ext/pepr ext (TURMERIC-TURMERIC EXT-PEPPER) 900-100-5 mg cap - CPAP Bipap 17/13 cm H2O, Heat Humidity, suitable mask, Lif[employer] supplies, opt Chinstrap, G47.33. - cholecalciferol (VITAMIN D3) 2,000 unit tablet Take 2,000 Units by mouth once daily. - FLUoxetine HCl (PROZAC) 40 mg capsule Take 1 capsule by mouth once daily. (Dr. Garcia) - CYANOCOBALAMIN, VITAMIN B-12, (VITAMIN B-12 ORAL) Take by mouth. - buPROPion XL (WELLBUTRIN XL) 150 mg 24 hr tablet Take one(1) tablet daily. - Biotin (NAIL-EX) 2,500 mcg ORAL Tab Take 1,000 mcg by mouth once daily. - DAILY VITAMIN TAB Take one(1) tablet daily. Meds Comments as of 04/13/2023: 04/13/23: Amlodipine stopped and taking HCTZ now. Ginny Haq RN Problem List As Of Date 01/30/2024 Noted Resolved Fibromyalgia [M79.7] DYSTHYMIC DISORDER [F34.1] Palpitations [R00.2] 11/23/2006 01/29/2014 Dyslipidemia [E78.5] 11/25/2006 Osteopenia [M85.80] 12/14/2010 Arthrosis [M19.90] 12/14/2010 Dysmetabolic syndrome [E88.810] 10/07/2012 Obstructive sleep apnea treated with bilevel po*09/09/2013 Insomnia [G47.00] 09/09/2013 Elevated antinuclear antibody (KELTON) [...] 07/25/2022 CAD (coronary artery disease) [I25.10] 07/25/2022 Depression, recurrent (HCC) [F33.9] 12/16/2022 Intermittent claudication (HCC) [I73.9] 12/16/2022 Chronic bilateral low back pain with left-sided*02/07/2023 Encounter Status:Closed by OMAR TRAYLOR on 01/30/24 ALLERGIES DATE TYPE / CODE NAME / CODE REACTION SEVERITY SOURCE Drug Class/[id number](SNO MED CT) NO KNOWN ALLERGIES [facility] ENCOUNTERS ADMIT/DISCHARGE ACCOUNT NUMBER ADMITTING ENCOUNTER CLASS LOCATION SOURCE 01/04/2025/01/05/20 [id number] Ambulatory [facility] HospitalBuild ing:WONU [facility] 12/31/2024/01/01/20 [id number] Ambulatory [facility] HospitalBuild ing:MARINE [facility] 12/28/2024/12/29/19 [id number] Ambulatory [facility] HospitalBuild ing:ENWSTR [facility] 12/18/2024 [id number] Ambulatory [facility] HospitalBuild ing:WOCT [facility] 12/09/2024/12/10/19 [id number] [facility] 12/08/2024/12/09/19 25 [id number] Ambulatory [facility] HospitalBuild ing:STDE [facility] 12/07/2024/12/08/19 25 [id number] [facility]STR[facility] 11/26/2024/11/27/19 25 [id number] Ambulatory [facility] HospitalBuild ing:WOUCA [facility] 11/24/2024 [id number] Ambulatory [facility] HospitalBuild ing:WODM [facility] 11/12/2024/11/13/19 25 [id number] Ambulatory [facility] HospitalBuild ing:WOL2 [facility] 10/29/2024/10/30/19 25 [id number] Ambulatory [facility] HospitalBuild ing:WOL2 [facility] 10/01/2024/10/02/19 25 [id number] Ambulatory [facility] HospitalBuild ing:WOL2 [facility] 09/28/2024/09/29/19 [id number] Ambulatory [facility] HospitalBuild ing:WONU [facility] 09/25/2024/09/26/19 25 [id number] Ambulatory [facility] HospitalBuild ing:WOUC [facility] 09/25/2024 [id number] Ambulatory [facility] HospitalBuild ing:WOR2 [facility] 09/03/2024/09/04/19 25 [id number] Ambulatory [facility] HospitalBuild ing:WOL2 [facility] 08/25/2024/08/26/19 [id number] Ambulatory [facility] HospitalBuild ing:WOIA [facility] 08/21/2024 [id number] Ambulatory [facility] HospitalBuild ing:WORG [facility] 08/21/2024/08/22/19 25 [id number] Ambulatory [facility] HospitalBuild ing:WOUC [facility] 08/14/2024/08/15/19 25 [id number] Ambulatory [facility] HospitalBuild ing:WOL2 [facility] 08/14/2024/08/15/19 25 [id number] Ambulatory [facility] HospitalBuild ing:WMOB [facility] 08/06/2024/08/07/19 25 [id number] Ambulatory [facility] HospitalBuild ing:WOL2 [facility] 07/23/2024/07/24/19 25 [id number] Ambulatory [facility] HospitalBuild ing:WOVL [facility] 07/23/2024/07/24/19 25 [id number] Ambulatory [facility] HospitalBuild ing:WOVL [facility] 07/20/2024/07/21/19 25 [id number] Ambulatory [facility] HospitalBuild ing:WONU [facility] 07/10/2024/07/11/19 25 [id number] Ambulatory [facility] HospitalBuild ing:WOIA [facility] 07/07/2024/07/08/19 25 [id number] Ambulatory [facility] HospitalBuild ing:STRH [facility] 07/01/2024 [id number] [facility] 06/26/2024/06/27/19 25 [id number] Ambulatory [facility] HospitalBuild ing:WON2 [facility] 06/15/2024/06/15/19 25 [id number] Ambulatory [facility] HospitalBuild ing:WOIA [facility] 06/10/2024/06/10/19 25 [id number] Ambulatory [facility] HospitalBuild ing:WOL2 [facility] 05/04/2024/05/04/19 25 [id number] Ambulatory [facility] HospitalBuild ing:WOL2 [facility] 03/31/2024/03/31/20 24 [id number] Ambulatory [facility] HospitalBuild ing:WOUC [facility] 03/27/2024/03/27/20 24 [id number] Ambulatory [facility] HospitalBuild ing:WOL2 [facility] 03/25/2024/03/25/20 24 [id number] [facility]/24/2024/03/24/20 24 [id number] Ambulatory [facility] HospitalBuild ing:WOPT [facility] 03/23/2024/03/23/20 24 [id number] Ambulatory [facility] HospitalBuild ing:WOL2 [facility] 03/20/2024/03/20/20 24 [id number] Ambulatory [facility] HospitalBuild ing:RUAV [facility] 03/18/2024/03/18/20 24 [id number] Ambulatory [facility] HospitalBuild ing:WOPT [facility] 03/12/2024/03/12/20 24 [id number] Ambulatory [facility] HospitalBuild ing:WOPT [facility] 03/04/2024/03/04/20 24 [id number] Ambulatory [facility] HospitalBuild ing:WOPT [facility] 03/02/2024/03/02/20 24 [id number] Ambulatory [facility] HospitalBuild ing:BONEWS [facility] 02/25/2024/02/25/20 24 [id number] Ambulatory [facility] HospitalBuild ing:WOPT [facility] 02/21/2024/02/21/20 24 [id number] Ambulatory [facility] HospitalBuild ing:WOIA [facility] 02/21/2024/02/21/20 24 [id number] Ambulatory [facility] HospitalBuild ing:WOUS [facility] 02/17/2024/02/17/20 24 [id number] JOVANY BAHE[facility] HospitalBuild ing:R722Aldp: [id number]-[id number]: S010-10 [facility] 01/24/2024/01/24/20 24 [id number] Ambulatory [facility] HospitalBuild ing:WOFM [facility] PAYERS ENCOUNTER GUARANTOR PAYER SUBSCRIBER SOURCE 01/04/2025 Primary Insuranc e:MEDICARE A AND BPolicy Number: [id number] Date:0503-10-50Ygwh Name:Christiano MOEOB: 1061-73-84ESL[address] [place] [address] [facility] 01/04/2025 Secondary Insura nce:MMO MEDICARE SUPPLEMENTPolicy Number: [id number] Date:7165-00-57Vjee Name:Nadeen MOEOB: [id number] [place] [address] [facility] 12/31/2024 Primary Insuranc e:MEDICARE A AND BPolicy Number: [id number] Date:5148-95-01Eojz Name:Christiano MOEOB: [id number] [place] [address] [facility] 12/31/2024 Secondary Insura nce:MMO MEDICARE SUPPLEMENTPolicy Number: [id number] Date:6397-32-85Jwvs Name:Nadeen MOEOB: [id number] [place] [address] [facility] 12/28/2024 Primary Insuranc e:MEDICARE A AND BPolicy Number: [id number] Date:8681-46-34Vmrn Name:Christiano MOEOB: [id number] [place] [address] [facility] 12/28/2024 Secondary Insura nce:MMO MEDICARE SUPPLEMENTPolicy Number: [id number] Date:5569-71-92Jccn Name:Nadeen MOEOB: [id number] [place] [address] [facility] 12/18/2024 Primary Insuranc e:MEDICARE A AND BPolicy Number: [id number] Date:2584-75-56Wekz Name:Christiano MOEOB: [id number] [place] [address] [facility] 12/18/2024 Secondary Insura nce:MMO MEDICARE SUPPLEMENTPolicy Number: [id number] Date:0184-31-28Tyaq Name:Nadeen MOEOB: [id number] [place] [address] [facility] 12/09/2024 Primary Insuranc e:MEDICARE A AND BPolicy Number: [id number] Date:3163-12-68Jyox Name:Christiano Wilkinson ABHIOB: [id number] [place] [address] [facility] 12/09/2024 Secondary Insura nce:MMO MEDICARE SUPPLEMENTPolicy Number: [id number] Date:8195-37-17Zluj Name:Nadeen PRISCILLA Jaja ABHIOB: [id number] [place] [address] [facility] 12/08/2024 Primary Insuranc e:MEDICARE A AND BPolicy Number: [id number] Date:0386-88-12Kubd Name:Christiano PRISCILLA Jaja ABHIOB: [id number] [place] [address] [facility] 12/08/2024 Secondary Insura nce:MMO MEDICARE SUPPLEMENTPolicy Number: [id number] Date:1084-69-12Zror Name:Nadeen MOEOB: [id number] [place] [address] [facility] 12/07/2024 Primary Insuranc e:MEDICARE A AND BPolicy Number: [id number] Date:5552-86-28Jtvm Name:Christiano MOEOB: [id number] [place] [address] [facility] 12/07/2024 Secondary Insura nce:MMO MEDICARE SUPPLEMENTPolicy Number: [id number] Date:4720-76-87Rhcf Name:Nadeen MOEOB: 5053-72-15PPV[address] [place] [address] [facility] 11/26/2024 Primary Insuranc e:MEDICARE A AND BPolicy Number: [id number] Date:6750-32-59Ltzx Name:Christiano MOEOB: [id number] [place] [address] [facility] 11/26/2024 Secondary Insura nce:MMO MEDICARE SUPPLEMENTPolicy Number: [id number] Date:3194-90-55Oiej Name:Nadeen MOEOB: 5823-67-04[address] [place] [address] [facility] 11/24/2024 Primary Insuranc e:MEDICARE A AND BPolicy Number: [id number] Date:0765-15-67Wvrj Name:Christiano MOEOB: [id number] [place] [address] [facility] 11/24/2024 Secondary Insura nce:MMO MEDICARE SUPPLEMENTPolicy Number: [id number] Date:8814-73-66Bzls Name:Nadeen MOEOB: [id number] [place] [address] [facility] 11/12/2024 Primary Insuranc e:MEDICARE A AND BPolicy Number: [id number] Date:9686-32-48Vcss Name:Christiano MOEOB: [id number] [place] [address] [facility] 11/12/2024 Secondary Insura nce:MMO MEDICARE SUPPLEMENTPolicy Number: [id number] Date:2305-16-46Zhfu Name:Nadeen MOEOB: [id number] [place] [address] [facility] 10/29/2024 Primary Insuranc e:MEDICARE A AND BPolicy Number: [id number] Date:2733-01-73Obtp Name:Christiano VASQUEZJOSE ANGELOB: [id number] [place] [address] [facility] 10/29/2024 Secondary Insura nce:MMO MEDICARE SUPPLEMENTPolicy Number: [id number] Date:0163-30-95Kfwm Name:Nadeen MOEOB: 2550-08-05[address] [place] [address] [facility] 10/01/2024 Primary Insuranc e:MEDICARE A AND BPolicy Number: [id number] Date:1955-00-31Crta Name:Christiano MOEOB: [id number] [place] [address] [facility] 10/01/2024 Secondary Insura nce:MMO MEDICARE SUPPLEMENTPolicy Number: [id number] Date:7511-40-62Glhh Name:Nadeen MOEOB: [id number] [place] [address] [facility] 09/28/2024 Primary Insuranc e:MEDICARE A AND BPolicy Number: [id number] Date:7170-64-64Jcbt Name:Christiano MOEOB: 5420-09-31[address] [place] [address] [facility] 09/28/2024 Secondary Insura nce:MMO MEDICARE SUPPLEMENTPolicy Number: [id number] Date:9013-21-73Cttj Name:Nadeen MOEOB: [id number] [place] [address] [facility] 09/25/2024 Primary Insuranc e:MEDICARE A AND BPolicy Number: [id number] Date:4962-08-51Qvsz Name:Christiano MOEOB: 7195-74-08[address] [place] [address] [facility] 09/25/2024 Secondary Insura nce:MMO MEDICARE SUPPLEMENTPolicy Number: [id number] Date:3221-49-68Lolg Name:Nadeen MOEOB: [id number] [place] [address] [facility] 09/25/2024 Primary Insuranc e:MEDICARE A AND BPolicy Number: [id number] Date:3364-65-96Gfbo Name:Christiano MOEOB: [id number] [place] [address] [facility] 09/25/2024 Secondary Insura nce:MMO MEDICARE SUPPLEMENTPolicy Number: [id number] Date:8261-27-13Nnlf Name:Nadeen MOEOB: 3137-53-53[address] [place] [address] [facility] 09/03/2024 Primary Insuranc e:MEDICARE A AND BPolicy Number: [id number] Date:3292-87-79Exhq Name:Christiano MOEOB: [id number] [place] [address] [facility] 09/03/2024 Secondary Insura nce:MMO MEDICARE SUPPLEMENTPolicy Number: [id number] Date:8969-63-58Wtux Name:Nadeen MOEOB: [id number] [place] [address] [facility] 08/25/2024 Primary Insuranc e:MEDICARE A AND BPolicy Number: [id number] Date:4856-41-29Gnie Name:Christiano MOEOB: [id number] [place] [address] [facility] 08/25/2024 Secondary Insura nce:MMO MEDICARE SUPPLEMENTPolicy Number: [id number] Date:7739-53-58Xcwd Name:Nadeen MOEOB: [id number] [place] [address] [facility] 08/21/2024 Primary Insuranc e:MEDICARE A AND BPolicy Number: [id number] Date:1746-62-98Ggvr Name:Christiano MOEOB: 0950-87-21[address] [place] [address] [facility] 08/21/2024 Secondary Insura nce:MMO MEDICARE SUPPLEMENTPolicy Number: [id number] Date:9613-33-41Csek Name:Nadeen Wilkinson ABHIOB: [id number] [place] [address] [facility] 08/21/2024 Primary Insuranc e:MEDICARE A AND BPolicy Number: [id number] Date:4521-99-48Fgju Name:Christiano VASQUEZJOSE ANGELOB: [id number] [place] [address] [facility] 08/21/2024 Secondary Insura nce:MMO MEDICARE SUPPLEMENTPolicy Number: [id number] Date:4132-46-58Illx Name:Nadeen MOEOB: 1801-05-57[address] [place] [address] [facility] 08/14/2024 Primary Insuranc e:MEDICARE A AND BPolicy Number: [id number] Date:9513-77-84Moqc Name:Christiano MOEOB: 8638-90-24[address] [place] [address] [facility] 08/14/2024 Secondary Insura nce:MMO MEDICARE SUPPLEMENTPolicy Number: [id number] Date:0964-21-23Cvke Name:Nadeen Wilkinson ABHIOB: [id number] [place] [address] [facility] 08/14/2024 Primary Insuranc e:MEDICARE A AND BPolicy Number: [id number] Date:2341-38-57Qbwx Name:Christiano MOEOB: 7110-71-90[address] [place] [address] [facility] 08/14/2024 Secondary Insura nce:MMO MEDICARE SUPPLEMENTPolicy Number: [id number] Date:7716-57-75Ctdr Name:Nadeen MOEOB: 7636-06-80[address] [place] [address] [facility] 08/06/2024 Primary Insuranc e:MEDICARE A AND BPolicy Number: [id number] Date:7091-39-87Kwpk Name:Christiano MOEOB: 3814-53-51[address] [place] [address] [facility] 08/06/2024 Secondary Insura nce:MMO MEDICARE SUPPLEMENTPolicy Number: [id number] Date:8013-40-02Bozv Name:Nadeen MOEOB: 7750-97-85[address] [place] [address] [facility] 07/23/2024 Primary Insuranc e:MEDICARE A AND BPolicy Number: [id number] Date:3033-47-45Ppzo Name:Christaino MOEOB: 8078-96-64[address] [place] [address] [facility] 07/23/2024 Secondary Insura nce:MMO MEDICARE SUPPLEMENTPolicy Number: [id number] Date:3568-88-10Huqt Name:Nadeen MOEOB: 8503-60-03[address] [place] [address] [facility] 07/23/2024 Primary Insuranc e:MEDICARE A AND BPolicy Number: [id number] Date:6831-35-77Vlmm Name:Christiano MOEOB: 6270-84-87[address] [place] [address] [facility] 07/23/2024 Secondary Insura nce:MMO MEDICARE SUPPLEMENTPolicy Number: [id number] Date:5583-50-90Wdcg Name:Nadeen MOEOB: 6666-61-50[address] [place] [address] [facility] 07/20/2024 Primary Insuranc e:MEDICARE A AND BPolicy Number: [id number] Date:3910-99-84Snkg Name:Christiano MOEOB: 9148-57-53[address] [place] [address] [facility] 07/20/2024 Secondary Insura nce:MMO MEDICARE SUPPLEMENTPolicy Number: [id number] Date:2367-69-78Kahd Name:Nadeen MOEOB: 2813-17-25[address] [place] [address] [facility] 07/10/2024 Primary Insuranc e:MEDICARE A AND BPolicy Number: [id number] Date:7401-35-44Ylxj Name:Christiano MOEOB: 4261-34-15[address] [place] [address] [facility] 07/10/2024 Secondary Insura nce:MMO MEDICARE SUPPLEMENTPolicy Number: [id number] Date:3849-57-90Xwwf Name:Nadeen MOEOB: 0308-51-37[address] [place] [address] [facility] 07/07/2024 Primary Insuranc e:MEDICARE A AND BPolicy Number: [id number] Date:0178-53-58Omcv Name:Christiano MOEOB: 1099-75-17[address] [place] [address] [facility] 07/07/2024 Secondary Insura nce:MMO MEDICARE SUPPLEMENTPolicy Number: [id number] Date:5246-55-01Pqii Name:Nadeen MOEOB: 0604-52-85[address]JL[address] [place] [address] [facility] 06/26/2024 Primary Insuranc e:MEDICARE A AND BPolicy Number: [id number] Date:1826-05-69Etza Name:Christiano MOEOB: 2264-53-55[address] [place] [address] [facility] 06/26/2024 Secondary Insura nce:MMO MEDICARE SUPPLEMENTPolicy Number: [id number] Date:8548-64-24Rtmf Name:Nadeen MOEOB: 6580-99-37[address] [place] [address] [facility] 06/15/2024 Primary Insuranc e:MEDICARE A AND BPolicy Number: [id number] Date:1938-64-37Nlhd Name:Christiano MOEOB: 2877-85-10[address] [place] [address] [facility] 06/15/2024 Secondary Insura nce:MMO MEDICARE SUPPLEMENTPolicy Number: [id number] Date:1351-52-21Dcpw Name:Nadeen MOEOB: 2998-34-45[address] [place] [address] [facility] 06/10/2024 Primary Insuranc e:MEDICARE A AND BPolicy Number: [id number] Date:9237-92-17Vsis Name:Christiano MOEOB: 2759-70-44[address] [place] [address] [facility] 06/10/2024 Secondary Insura nce:MMO MEDICARE SUPPLEMENTPolicy Number: [id number] Date:0174-35-03Dhmh Name:Nadeen PRISCILLA Jaja ABHIOB: [id number] [place] [address] [facility] 05/04/2024 Primary Insuranc e:MEDICARE A AND BPolicy Number: [id number] Date:4477-74-47Lyhl Name:Christiano PRISCILLA Jaja ABHIOB: 6517-61-80[address] [place] [address] [facility] 05/04/2024 Secondary Insura nce:MMO MEDICARE SUPPLEMENTPolicy Number: [id number] Date:6360-85-68Xepz Name:Nadeen MOEOB: 1300-97-72[address] [place] [address] [facility] 03/31/2024 Primary Insuranc e:MEDICARE A AND BPolicy Number: [id number] Date:4121-33-11Bjou Name:Christiano MOEOB: 9442-26-33[address] [place] [address] [facility] 03/31/2024 Secondary Insura nce:MMO MEDICARE SUPPLEMENTPolicy Number: [id number] Date:3857-37-57Dpmw Name:Nadeen MOEOB: 8312-74-33[address] [place] [address] [facility] 03/27/2024 Primary Insuranc e:MEDICARE A AND BPolicy Number: [id number] Date:6661-76-61Irbx Name:Christiano MOEOB: [id number] [place] [address] [facility] 03/27/2024 Secondary Insura nce:MMO MEDICARE SUPPLEMENTPolicy Number: [id number] Date:2826-92-77Yquh Name:Nadeen MOEOB: [id number] [place] [address] [facility] 03/25/2024 Primary Insuranc e:MEDICARE A AND BPolicy Number: [id number] Date:1584-69-11Pbmv Name:Christiano MOEOB: [id number] [place] [address] [facility] 03/25/2024 Secondary Insura nce:MMO MEDICARE SUPPLEMENTPolicy Number: [id number] Date:8513-60-16Badm Name:Nadeen MOEOB: [id number] [place] [address] [facility] 03/24/2024 Primary Insuranc e:MEDICARE A AND BPolicy Number: [id number] Date:9830-85-56Bjke Name:Christiano MOEOB: [id number] [place] [address] [facility] 03/24/2024 Secondary Insura nce:MMO MEDICARE SUPPLEMENTPolicy Number: [id number] Date:3053-65-81Ucvn Name:Nadeen MOEOB: [id number] [place] [address] [facility] 03/23/2024 Primary Insuranc e:MEDICARE A AND BPolicy Number: [id number] Date:0457-75-80Saji Name:Christiano MOEOB: [id number] [place] [address] [facility] 03/23/2024 Secondary Insura nce:MMO MEDICARE SUPPLEMENTPolicy Number: [id number] Date:0464-69-10Bnuw Name:Nadeen MOEOB: [id number] [place] [address] [facility] 03/20/2024 Primary Insuranc e:MEDICARE A AND BPolicy Number: [id number] Date:8122-82-94Xulo Name:Christiano MOEOB: [id number] [place] [address] [facility] 03/20/2024 Secondary Insura nce:MMO MEDICARE SUPPLEMENTPolicy Number: [id number] Date:1233-19-94Rynn Name:Nadeen MOEOB: [id number] [place] [address] [facility] 03/18/2024 Primary Insuranc e:MEDICARE A AND BPolicy Number: [id number] Date:1725-93-54Itqu Name:Christiano MOEOB: [id number] [place] [address] [facility] 03/18/2024 Secondary Insura nce:MMO MEDICARE SUPPLEMENTPolicy Number: [id number] Date:8830-84-45Rmvh Name:Nadeen MOEOB: [id number] [place] [address] [facility] 03/12/2024 Primary Insuranc e:MEDICARE A AND BPolicy Number: [id number] Date:7832-82-24Vilh Name:Christiano MOEOB: [id number] [place] [address] [facility] 03/12/2024 Secondary Insura nce:MMO MEDICARE SUPPLEMENTPolicy Number: [id number] Date:9411-23-40Dcfw Name:Nadeen MOEOB: [id number] [place] [address] [facility] 03/04/2024 Primary Insuranc e:MEDICARE A AND BPolicy Number: [id number] Date:5493-47-79Midr Name:Christiano VASQUEZJOSE ANGELOB: [id number] [place] [address] [facility] 03/04/2024 Secondary Insura nce:MMO MEDICARE SUPPLEMENTPolicy Number: [id number] Date:8643-45-20Ywpp Name:Nadeen Wilkinson ABHIOB: [id number] [place] [address] [facility] 03/02/2024 Primary Insuranc e:MEDICARE A AND BPolicy Number: [id number] Date:9944-18-90Vpco Name:Christiano VASQUEZJOSE ANGELOB: [id number] [place] [address] [facility] 03/02/2024 Secondary Insura nce:MMO MEDICARE SUPPLEMENTPolicy Number: [id number] Date:0171-22-07Abeb Name:Nadeen Wilkinson ABHIOB: [id number] [place] [address] [facility] 02/25/2024 Primary Insuranc e:MEDICARE A AND BPolicy Number: [id number] Date:0956-04-18Pylg Name:Christiano Wilkinson ABHIOB: [id number] [place] [address] [facility] 02/25/2024 Secondary Insura nce:MMO MEDICARE SUPPLEMENTPolicy Number: [id number] Date:7710-17-17Tkhe Name:Nadeen PRISCILLA M ABHIOB: [id number] [place] [address] [facility] 02/21/2024 Primary Insuranc e:MEDICARE A AND BPolicy Number: [id number] Date:9645-74-11Uzuq Name:Christiano PRISCILLA M ABHIOB: [id number] [place] [address] [facility] 02/21/2024 Secondary Insura nce:MMO MEDICARE SUPPLEMENTPolicy Number: [id number] Date:7190-61-44Sxcs Name:Nadeen VASQUEZJOSE ANGELOB: [id number] [place] [address] [facility] 02/21/2024 Primary Insuranc e:MEDICARE A AND BPolicy Number: [id number] Date:2640-85-22Cdos Name:Christiano Wilkinson ABHIOB: [id number] [place] [address] [facility] 02/21/2024 Secondary Insura nce:MMO MEDICARE SUPPLEMENTPolicy Number: [id number] Date:3512-67-10Wytr Name:Nadeen Wilkinson ABHIOB: [id number] [place] [address] [facility] 02/17/2024 Primary Insuranc e:MEDICARE A AND BPolicy Number: [id number] Date:1934-97-97Iqod Name:Christiano MOEOB: [id number] [place] [address] [facility] 02/17/2024 Secondary Insura nce:MMO MEDICARE SUPPLEMENTPolicy Number: [id number] Date:9955-41-19Jifw Name:Nadeen VASQUEZJOSE ANGELOB: [id number] [place] [address] [facility] 01/24/2024 Primary Insuranc e:MEDICARE A AND BPolicy Number: [id number] Date:8955-26-82Jonw Name:Christiano Wilkinson ABHIOB: [id number] [place] [address] [facility] 01/24/2024 Secondary Insura nce:MMO MEDICARE SUPPLEMENTPolicy Number: [id number] Date:7665-86-59Dvux Name:Nadeen MOEOB: [id number] [place] [address] [facility]
[2025-01-19 12:58] LABS: Anion Gap 11 (5-15); BUN 14 mg/dL (4-19); BUN/Creat Ratio 23.2 RATIO (10-20); Calcium,Total 9.3 mg/dL (7.6-11.0); Carbon Dioxide 23.9 mmol/L (21.0-32.0); Chloride 101 mmol/L (98-108); Glucose 125 mg/dL (70-99); Potassium 4.3 mmol/L (3.3-5.1)
== END | disposition home or self-care (01) ==
LOC: MTLAB 10:45
PROVIDERS: PCP Internal Medicine; Referring Provider Nurse Practitioner Family; Visit Provider Nurse Practitioner Family
DX: I49.3 Ventricular premature depolarization (principal); R42 Dizziness and giddiness; Z51.81 Encounter for therapeutic drug level monitoring; Z79.899 Other long term (current) drug therapy
CPT/HCPCS: 36415; 80048